=== PATIENT | female | born 1970 | race Caucasian/White ===

== ENCOUNTER 2023-11-24 06:00 | Outpatient (OUT) | payer BC, SELFPAY ==
--- NOTE | 2023-11-24 06:15 | NM_ITS ---
Patient Name: MARANDA DAVIS MR#: [id number] : 1970 Exam Date: 11/24/2023 Ordering Doctor: DR JACQUIE CHILDERS RADIOLOGY REPORT PROCEDURE: NM ANSLEY PERF SPECT REST STR COMPARISON: None. INDICATIONS: ABNORMAL EKG, PREPROCEDURE CARDIOVASCULAR EXAM TECHNIQUE: Exam Description: Stress/Rest two day protocol gated SPECT Rest Imagin.0 mCi Tc-99m Cardiolite IV on 11-24-2023 Stress Imaging 29.8 mCi Tc-99m Cardiolite IV on 11-24-2023 Exercise Protocol: 0.4 mg Lexiscan given IV Heart Rate (bpm): Rest: 57 Max: 85 PMHR: 50 Blood Pressure: Rest: 122/70 Max: 126/66 Symptoms: Rest and peak stress ECG findings were normal and the exercise portion of the study was normal per attending physician Dr. Lewis . For more details please see separate cardiac stress test report. FINDINGS: QUALITY OF STUDY: Excellent. PERFUSION DEFECT: None. LOCATION: N/A SIZE: N/A. SEVERITY: N/A. TYPE: N/A. WALL MOTION: Normal. LV SIZE: Normal. 120 mL. TID / TCD: None; 0.6 LVEF: Normal. Calculated EF 58%. SUMMARY: Myocardial perfusion imaging study is NORMAL. CONCLUSION: 1. Normal nuclear medicine myocardial perfusion scan. 2. Left ventricle volume approaches upper limits normal. 3. Left ventricle ejection fraction approaches lower limits of normal. Dictated by: Anival Desouza M.D. on 11/24/2023 at 14:41 Approved by: Anival Desouza M.D. on 11/24/2023 at 14:44
[2023-11-24] MEDS: REGADENOSON 0.4 MG/5 ML SYRINGE IV (08:04)
--- NOTE | 2023-11-24 13:01 | P.STRESS_ITS ---
Stress Test Stress Test Requesting physician: GRAZYNA WORLEY Procedure: Lexiscan Cardiolite stress test General Information: Reason for Stress Test: Abnormal EKG Cardiac History and Risk Factors: No personal risk factors disclosed. Father had weak heart . Resting 12 - Lead Electrocardiogram: Rate & rhythm: Sinus bradycardia at a rate of 54. [place]: Normal T-waves: Normal orientation ST-segments: Normal orientation Only prior EKG provided for comparison was dated 08/23/2012 which was unremarkable. Stress Test: Protocol: Jesus protocol was initiated, but due to inability to ambulate on treadmill, the exercise component was therefore canceled.? Testing was changed to Lexiscan protocol, with injection of 0.4mg Lexiscan IV push followed by Cardiolite. Blood pressure: Initial: 122/70, Maximum: 126/66 Rate & rhythm: Patient remained in sinus rhythm during the exercise and recovery portions of the study.? The maximum heart rate was 85, which was 50% of the maximum predicted heart rate 168. ST-segments & T-waves: There were no T-wave changes and no ST-segment changes when compared to the baseline EKG. Patient response/symptoms: There were no symptoms similar to the chief complaint. Interpretation: Normal Lexiscan stress test without electrocardiographical evidence of ischemia. Asymptomatic of chief complaint. Cardiolite imaging interpretation will be reported separately. Clinical correlation required.?
== END 2023-11-24 06:01 | disposition home or self-care (01) ==
LOC: NM 06:00
PROVIDERS: PCP Family Medicine; Visit Provider Physician Assistant
DX: R94.31 Abnormal electrocardiogram [ECG] [EKG] (principal); Z01.818 Encounter for other preprocedural examination
CPT/HCPCS: 78452; 93017; A9500; J2785

== ENCOUNTER 2024-08-01 06:51 | Outpatient (OUT) | payer BC, SELFPAY ==
--- OUTSIDE RECORDS SUMMARY | 2024-08-01 06:53 | XMS_ITS | CCD ---
Author Organization [facility] Care Team Providers Care Engagement Executive Name Role Phone CORKY SCALES Unavailable Unavailable KANDY GOMEZ Unavailable Unavailable ZepedaErrol zazueta Primary Care Unavailable Grazyna Worley Primary Care Provider GRAZYNA WORLEY Primary Care Unavailable KVNG KATZ Referring Unavailable Grazyna Worley Unavailable Unavailable Unavailable CAITY BARBER Consulting Unavailable CAITY BARBER Admitting Unavailable BRUNILDA, DR GERONIMO Primary Care Unavailable CAITY BARBER Attending Unavailable MARY HOLMAN Consulting Unavailable BRUNILDA, DR GERONIMO Primary Care Unavailable MISC, DR SARGENT Attending Unavailable MISC, DR SARGENT Consulting Unavailable MISC, DR SARGENT Admitting Unavailable ZIEBER, DR CHAUNCEY Sousa Consulting Unavailable MD Grazyna Worley Primary Care Provider [phone] MD River Cunha Attending Provider [phone] Sara Hoyos Unavailable KRYSTAL FLORES Primary Care Physician [phone] Grazyna Worley Primary Care Unavailable Katia Rashid Admitting Unavailable Katia Rashid Attending Unavailable Grazyna Worley Primary Care Unavailable River Cunha Admitting Unavailable River Cunha Attending Unavailable Grazyna Worley Primary Care Unavailable Sara Hoyos Admitting Unavailable Sara Hoyos Attending Unavailable KRYSTAL FLORES Primary Care Unavailable KRYSTAL FLORES Referring Unavailable SOCORRO RASHID Attending Unavailab Kavon Espitia Admitting Unavailable Kavon SANTANA Attending Unavailable Kavon SANTANA Referring Unavailable KRYSTAL FLORES Primary Care Unavailable SOCORRO RASHID Admitting UnavailSOCORRO Meraz Attending Unavailab KRYSTAL Wilhelm Primary Care Unavailable Grazyna Worley MD Primary Care Provider [phone] Grazyna Worley MD Primary Care Provider NEHAL, CARLOS Casillas Referring Unavailable BRUNILDA, RUGEN M Primary Care Unavailable NEHAL, CARLOS Casillas Attending Unavailable NEHAL, CARLOS Casillas Referring Unavailable BRUNILDA, RUGEN M Primary Care Unavailable YUMA, CARLOS Casillas Referring Unavailable BRUNILDA, RUGEN M Primary Care Unavailable NEHAL, CARLOS Casillas Referring Unavailable BRUNILDA, RUGEN M Primary Care Unavailable NEHAL, CARLOS Casillas Admitting Unavailable YUMA, CARLOS Casillas Attending Unavailable BRUNILDA, RUGEN M Primary Care Unavailable NIKHIL ABREU Attending Unavailable BRUNILDA, RUGEN M Primary Care Unavailable YUMA, CARLOS Casillas Attending Unavailable NEHAL, CARLOS Casillas Referring Unavailable BRUNILDA, RUGEN M Primary Care Unavailable Unavailable Primary Care Provider Unavailmaribeth AGUIRRE, EDU Attending Unavailable PROVIDER, UNKNOWN Admitting Unavailable BRUNILDA, RUGEN Referring Unavailable PROVIDER, UNKNOWN Admitting Unavailable PROVIDER, UNKNOWN Attending Unavailable BRUNILDA, PARVEZEN Referring Unavailable PROVIDER, UNKNOWN Admitting Unavailable PROVIDER, UNKNOWN Attending Unavailable NIKHIL GREWAL Referring Unavailable Timothy RANDOLPH, Qi Unavailable SANJANA BAHENA Attending Unavailable TANJA OJEDA Referring Unavailable NEHAL, CARLOS Casillas Attending Unavailable NEHAL, CARLOS Casillas Attending Unavailable HEMKRYSTAL KRAUS Attending Unavailable SNEIELMER GERMAN Attending Unavailable NEHAL, CARLOS Casillas Referring Unavailable SNELMER BURDEN Attending Unavailable NEHAL, CARLOS Casillas Referring Unavailable STATONJOLEEN Attending Unavailable SNEIDERELMER Attending Unavailable NEHAL, CARLOS Casillas Referring Unavailable NEHAL, CARLOS Casillas Attending Unavailable SNEIDERELMER Attending Unavailable NEHAL, CARLOS Casillas Referring Unavailable SNEIELMER GERMAN Attending Unavailable NEHAL, CARLOS Casillas Referring Unavailable STATONJOLEEN Attending Unavailable STATONJOLEEN Attending Unavailable HEMMERKRYSTAL Attending Unavailable STATONJOLEEN T Attending Unavailable STATONJOLEEN Attending Unavailable STATONJOLEEN Referring Unavailable STATONJOLEEN Attending Unavailable BRUNILDA, GRAZYNA Real Attending Unavailable STATONJOLEEN Attending Unavailable LEONELA GATES Attending Unavailable NEHAL, CARLOS Casillas Attending Unavailable SANJANA BAHENA Attending Unavailable NEHAL, CARLOS Casillas Referring Unavailable MARIELA LUONG Attending Unavailable CARLOS CALVERT Referring Unavailable MARIELA LUONG Attending Unavailable CARLOS CALVERT Referring Unavailable GRAZYNA WORLEY Attending Unavailable CARLOS CALVERT Attending Unavailable CARLOS CALVERT Referring Unavailable GRAZYNA WORLEY Attending Unavailable TANJA OJEDA Attending Unavailable TANJA OJEDA Referring Unavailable Allergies Allergy Classification Reported Allergen(s) Allergy Type Date of Onset Reaction(s) Facility (14 sources) HYDROmorphone; Translations: [Dilaudid] Drug Allergy 1 Headache, Rash [facility] (1 source) HYDROmorphone Drug Allergy [facility] Repository (2 sources) HYDROmorphone; Translations: [HYDROmorphone] Drug Allergy 1 [facility] Repository Medications Current Medications Medication Drug Class(es) Dates Sig (Normalized) Sig (Original) acetaminophen 325 mg / oxyCODONE hydrochloride 10 mg oral tablet (1 source) Opioid Agonist take 1 tablet by mouth every six hours as needed for pain oxyCODONE-acetamin ophen (PERCOCET) 10-325 MG per tablet Take 1 tablet by mouth every 6 hours as needed for Pain . 0 Active amantadine hydrochloride 100 mg oral capsule (1 source) Influenza A M2 Protein Inhibitor Start: 05-01-2023 take 1 capsule by mouth every twenty-four hours Amantadine HCl 100 MG 1 capsule Orally Once a day for 30 day(s) Apr, Active amitriptyline hydrochloride 25 mg oral tablet (15 sources) Tricyclic Antidepressant Start: 12-30-2020 take 1 tablet by mouth once daily at bedtime amitriptyline (Elavil) 25 MG tablet Indications: Adjustment disorder with depressed mood (CMS/HCC) TAKE 1 TABLET BY MOUTH EVERY DAY AT BEDTIME FOR 90 DAYS 100 tablet 3 10/12/2023 Active amoxicillin 875 mg oral tablet (1 source) Penicillin-class Antibacterial Start: 11-16-2023 End: 11-23-2023 take 1 tablet by mouth in the morning amoxicillin (Amoxil) 875 MG tablet Indications: Acute non-recurrent maxillary sinusitis Take 1 tablet (875 mg) by mouth in the morning and 1 tablet (875 mg) before bedtime. Do all this for 7 days. 14 tablet 0 11/16/2023 11/23/2023 Active Baclofen (4 sources) gamma-Aminobutyric Acid-ergic Agonist Start: 09-14-2023 baclofen Oral, TID Start Date: 09/14/23 Status: Ordered take 1 tablet by mouth four time s daily baclofen (LIORESAL) 10 MG tablet Take 10 mg by mouth 4 times daily 0 Active 12 hr buPROPion hydrochloride 100 mg extended release oral tablet (4 sources) Aminoketone Start: 07-24-2024 End: 07-24-2025 take 1 tablet by mouth every twelve hours in the morning buPROPion SR (Wellbutrin SR) 100 MG 12 hr tablet Indications: Depressive disorder (CMS/HCC) Take 1 tablet (100 mg) by mouth in the morning and 1 tablet (100 mg) before bedtime. Do not crush, chew, or split.. 60 tablet 11 07/24/2024 07/24/2025 Active cefuroxime 500 mg oral tablet (1 source) Cephalosporin Antibacterial take 1 tablet by mouth twice daily cefUROXime (CEFTIN) 500 MG tablet Take 500 mg by mouth 2 times daily 0 Active celecoxib 200 mg oral capsule (13 sources) Nonsteroidal Anti-inflammatory Drug Start: 02-13-2023 take 1 capsule by mouth in the morning celecoxib (CeleBREX) 200 MG capsule Take 200 mg by mouth in the morning. 02/13/2023 Active cephalexin 500 mg oral capsule (3 sources) Cephalosporin Antibacterial Start: 09-14-2023 take 1 capsule by mouth once daily Keflex 500 mg Cap 500 mg = 1 cap(s), Oral, Daily, take one day before procedure and take one day after procedure, # 2 cap(s), Refills(s) 0, Pharmacy: [facility]/pharmacy #[id number], 178, cm, 09/14/23 9:54:00 EST, Height/Length Dosing, 94, kg, 09/14/23 9:54:00 EST, Weight Dosing Start Date: 09/14/23 Status: Ordered clonazePAM 1 mg oral tablet (20 sources) Benzodiazepine Start: 06-21-2024 End: 07-20-2024 take 1 tablet by mouth once daily at bedtime clonazePAM (KlonoPIN) 1 MG tablet Indications: Sleep disturbance TAKE 1 TABLET BY MOUTH EVERYDAY AT BEDTIME 30 tablet 07/20/2024 Active Start: 09-08-2023 End: 11-12-2023 take 1 tablet by mouth at bedtime clonazePAM (KlonoPIN) 1 MG tablet Take 1 Tablet by mouth at bedtime. 09/08/2023 Active Start: 08-30-2020 take 1 tablet by liz th twice daily as needed clonazePAM 1 MG Oral Tablet TAKE 1 TABLET TWICE DAILY NEEDED. Quantity: 0 Refills: 0 Ordered: 03-Oct-2020 DO Start : 30-Aug-2020 Active cloNIDine (3 sources) Central alpha-2 Adrenergic Agonist Start: 09-14-2023 clonidine Start Date: 09/14/23 Status: Ordered DULoxetine 60 mg delayed release oral capsule (19 sources) Serotonin and Norepinephrine Reuptake Inhibitor Start: 06-23-2023 take 2 capsules by mouth once daily DULoxetine (Cymbalta) [address] capsule Indications: Depressive disorder (CMS/HCC) TAKE 2 CAPSULES BY MOUTH EVERY DAY 200 capsule 3 07/10/2024 Active Start: 12-23-2020 duloxetine 60 mg oral delayed release capsule 60 EA, 0 Refill(s), TAKE 2 CAPSULES BY MOUTH EVERY DAY, Refills(s) 0 Start Date: 09/08/23 Status: Ordered estradiol 2 mg oral tablet (18 sources) Estrogen Start: 09-08-2023 End: 07-24-2024 take 1 tablet by mouth once daily estradiol (Estrace) 2 MG tablet Indications: Hot flashes TAKE 1 TABLET BY MOUTH EVERY DAY 30 tablet 6 06/09/2024 07/24/2024 Discontinued (Ineffective) Start: 12-04-2020 take 1 tablet by liz th once daily Estradiol 0.5 MG Oral Tablet TAKE 1 TABLET DAILY. Quantity: 0 Refills: 0 Ordered: 02-Jan-2021 DO Start : 04-Dec-2020 Active take 1 tablet by liz th every twenty-four hours Estradiol 2 MG 1 tablet Orally Once a day Active estrogens, conjugated (intermediate) 0.625 mg oral tablet (4 sources) Estrogen Start: 07-24-2024 End: 07-24-2025 take 1 tablet by mouth once daily estrogens, conjugated, (Premarin) 0.625 MG tablet Indications: Hot flashes Take 1 tablet (0.625 mg) by mouth Daily Take daily for 21 days then do not take for 7 days. 30 tablet 11 07/24/2024 07/24/2025 Active famotidine 40 mg oral tablet (10 sources) Histamine-2 Receptor Antagonist Start: 09-21-2023 take 1 tablet by mouth in the morning famotidine (Pepcid) 40 MG tablet Indications: Gastroesophageal reflux disease without esophagitis Take 1 tablet (40 mg) by mouth in the morning. 30 tablet 5 09/21/2023 Active take 1 tablet by mouth in the mo rning famotidine (PEPCID) 20 mg tablet Take 1 tablet (20 mg total) by mouth in the morning. 0 Active ferrous sulfate 325 mg delayed release oral tablet (3 sources) Start: 11-04-2023 End: 01-03-2024 take 1 tablet by mouth at mealtime ferrous sulfate (Fe Tabs) 325 (65 Fe) MG EC tablet Indications: Arthritis of right knee Take 1 tablet (325 mg) by mouth in the morning. Take with meals. Do not crush, chew, or split.. 30 tablet 1 11/04/2023 01/03/2024 Active fexofenadine hydrochloride 60 mg oral tablet (1 source) Histamine-1 Receptor Antagonist take 1 tablet by mouth in the morning fexofenadine (Nicole) 60 MG tablet Take 60 mg by mouth in the morning. 0 Active fluticasone propionate 0.05 mg/actuat metered dose nasal spray (3 sources) Corticosteroid Start: 05-01-2023 take 1 spray(s) nasal route in the morning fluticasone (Flonase) 50 MCG/ACT nasal spray Administer 1 spray into each nostril in the morning. 0 05/01/2023 Active Start: 05-01-2023 take 2 spray(s) nasa l route once daily Fluticasone Propionate 50 MCG/ACT 2 sprays Nasally Once a day for 14 day(s) Apr, Active furosemide 40 mg oral tablet (19 sources) Loop Diuretic Start: 06-30-2023 take 1 tablet by mouth in the morning furosemide (Lasix) 40 MG tablet Indications: Edema, unspecified type Take 1 tablet (40 mg) by mouth in the morning and 1 tablet (40 mg) before bedtime. 60 tablet 05/23/2024 Active Start: 02-01-2021 take 1 tablet by liz th twice daily Furosemide 20 MG Oral Tablet TAKE 1 TABLET TWICE DAILY. Quantity: 0 Refills: 0 Ordered: 01-Feb-2021 DO Start : 01-Feb-2021 Active take 2 tablets by mo [facility] twice daily furosemide (LASIX) 20 mg tablet Take 2 tablets (40 mg total) by mouth 2 (two) times a day. 0 Active HYDROmorphone (3 sources) Opioid Agonist Start: 09-14-2023 HYDROmorphone Refills(s) 0 Start Date: 09/14/23 Status: Ordered lidocaine 0.05 mg/mg medicated patch (10 sources) Antiarrhythmic, Amide Local Anesthetic Start: 03-09-2024 apply 1 dose transdermal route once daily as needed for pain lidocaine (Lidoderm) 5 % patch APPLY 1 PATCH TO SKIN ONCE A DAY NEEDED FOR PAIN 03/09/2024 Active loratadine 10 mg oral tablet (8 sources) take 1 tablet by mouth in the morning loratadine (Claritin) 10 MG tablet Take 10 mg by mouth in the morning. Active metoprolol tartrate 25 mg oral tablet (1 source) beta-Adrenergic Shahid take 1 tablet by mouth once daily metoprolol tartrate (LOPRESSOR) 25 MG tablet Take 25 mg by mouth daily 0 Active modafinil 200 mg oral tablet (19 sources) Sympathomimetic- like Agent Start: 06-29-2024 End: 07-31-2024 take 1 tablet by mouth in the morning modafinil (Provigil) 200 MG tablet Indications: Obstructive sleep apnea TAKE 1 TABLET BY MOUTH IN THE MORNING 30 tablet 07/31/2024 Active Start: 11-19-2023 take 1 tablet by liz in the morning modafinil (Provigil) 200 MG tablet Indications: Obstructive sleep apnea Take 1 tablet (200 mg) by mouth in the morning. 30 tablet 0 11/19/2023 Active Start: 09-08-2023 End: 11-19-2023 take 1 tablet by mouth once daily in the morning modafinil (Provigil) 200 MG tablet Indications: Obstructive sleep apnea TAKE 1 TABLET BY MOUTH EVERY DAY IN THE MORNING 30 tablet 0 10/13/2023 11/19/2023 Discontinued nitrofurantoin, macrocrystals 25 mg / nitrofurantoin, monohydrate 75 mg oral capsule (1 source) Nitrofuran Antibacterial Start: 05-01-2023 take 1 capsule by mouth every twelve hours Macrobid 100 MG 1 cap(s) Orally bid for 5 day(s) Apr, Active NON FORMULARY (1 source) NON FORMULARY Pa in pump for spine- Morphine, Baclofen, Clonidine combination 0 Active omeprazole 40 mg delayed release oral capsule (13 sources) Proton Pump Inhibitor Start: 11-29-2023 take 1 capsule by mouth before mealtime omeprazole (PriLOSEC) [address] capsule Indications: Gastroesophageal reflux disease without esophagitis Take 1 capsule (40 mg) by mouth in the morning. Take before meals. Do not crush or chew. Take 30 minutes prior to breakfast meal.. 90 capsule 3 11/29/2023 Active Start: 06-21-2020 End: 11-04-2023 take 1 capsule by mouth once daily Omeprazole 40 MG Oral Capsule Delayed Release TAKE 1 CAPSULE Daily Quantity: 0 Refills: 0 Ordered: 27-Jan-2021 DO Start : 21-Jun-2020 Active OXcarbazepine 150 mg oral tablet (1 source) Anti-epileptic Agent take 1 tablet by mouth three times daily OXcarbazepine (TRILEPTAL) 150 MG tablet Take 150 mg by mouth three times daily 0 Active 24 hr oxybutynin chloride 15 mg extended release oral tablet (17 sources) Cholinergic Muscarinic Antagonist Start: 05-23-20 End: 08-31-20 take 1 tablet by mouth every twenty-four hours in the morning oxybutynin XL (Ditropan-XL) 15 MG 24 hr tablet Indications: Urge incontinence of urine Take 1 tablet (15 mg) by mouth in the morning. 100 tablet 05/23/2024 07/24/2024 Discontinued (Ineffective) Start: 09-14-2023 End: 09-28-2023 take 1 tablet by mouth once daily oxybutynin 5 mg ER Tab 5 mg = 1 tab(s), Oral, Daily, X 14 day(s), # 14 tab(s), Refills(s) 0, Pharmacy: [facility]/pharmacy #[id number], 178, cm, 09/14/23 9:54:00 EST, Height/Length Dosing, 94, kg, 09/14/23 9:54:00 EST, Weight Dosing Start Date: 09/14/23 Stop Date: 09/28/23 Status: Ordered Start: 09-08-2023 oxybutynin 10 mg ER Tab 30 EA, 0 Refill(s), TAKE 1 TABLET BY MOUTH EVERY DAY IN THE MORNING, Refills(s) 0 Start Date: 09/08/23 Status: Ordered Start: 05-17-2023 take 1 tablet by liz th every twenty-four hours in the morning oxybutynin XL (Ditropan-XL) 10 MG 24 hr tablet Indications: Urge incontinence of urine Take 1 tablet (10 mg) by mouth in the morning. 100 tablet 3 05/17/2023 Active take 1 tablet by liz th once daily in the morning oxybutynin (DITROPAN XL) 15 MG XL tablet Take 15 mg by mouth every morning. Active Oxybutynin Chlor valentina ER 10 MG Oral for 30 Days Active phenazopyridine hydrochloride 200 mg oral tablet (1 source) Start: 05-01-2023 take 1 tablet by mouth every eight hours Pyridium 200 MG 1 tablet after meals Orally Three times a day for 2 day(s) Apr, Active potassium gluconate 2.5 meq extended release oral tablet (11 sources) Potassium Glucon ate ER 595 MG tablet controlled-release Take by mouth Daily Active pregabalin 200 mg oral capsule (18 sources) Start: 10-24-2020 take 1 capsule by mouth in the morning, then take 1 capsule by mouth in the evening, then take 1 capsule by mouth at bedtime pregabalin (Lyrica) 200 MG capsule Indications: Chronic pain syndrome , Numbness and tingling of both legs Take 1 capsule (200 mg) by mouth in the morning and 1 capsule (200 mg) in the evening and 1 capsule (200 mg) before bedtime. 90 capsule 5 04/07/2024 Active take 1 capsule by mouth three ti mes daily pregabalin (LYRICA) 200 mg capsule Take 1 capsule (200 mg total) by mouth 3 (three) times a day. 0 Active take 2 capsules by m outh three times daily pregabalin (LYRICA) 100 MG capsule Take 200 mg by mouth 3 times daily 0 Active spironolactone 25 mg oral tablet (8 sources) Aldosterone Antagonist Start: 06-07-2023 take 1 tablet by mouth once daily spironolactone (Aldactone) 25 MG tablet Indications: Localized edema TAKE 1 TABLET BY MOUTH EVERY DAY FOR 30 DAYS 30 tablet 5 06/07/2023 Active tiZANidine 4 mg oral tablet (14 sources) Central alpha-2 Adrenergic Agonist Start: 05-23-2024 take 1 tablet by mouth every eight hours for muscle spasms tiZANidine (Zanaflex) 4 MG tablet Indications: Tension headache Take 1 tablet (4 mg) by mouth every 8 (eight) hours if needed for muscle spasms 90 tablet 05/23/2024 Active Start: 11-04-2023 take 1 tablet by liz th three times daily as needed for muscle spasms tiZANidine (Zanaflex) 4 MG tablet TAKE 1 TABLET BY MOUTH THREE TIMES A DAY NEEDED FOR MUSCLE SPASM 0 11/04/2023 Active Start: 09-25-2021 tiZANidine HCl - 4 MG Oral Tablet USE DIRECTED. Quantity: 0 Refills: 0 Ordered: 25-Sep-2021 DO Start : 25-Sep-2021 Active take 1 tablet by liz th every six hours as needed tiZANidine (ZANAFLEX) 4 mg tablet Take 1 tablet (4 mg total) by mouth every 6 (six) hours as needed for muscle spasms. 0 Active 24 hr tolterodine tartrate 4 mg extended release oral capsule (1 source) Cholinergic Muscarinic Antagonist take 2 capsules by mouth once daily tolterodine (DETROL LA) 4 MG extended release capsule Take 8 mg by mouth daily 0 Active traMADol hydrochloride 50 mg oral tablet (18 sources) Opioid Agonist Start: 09-08-20 End: 07-31-20 24 take 1 tablet by mouth every six hours for pain traMADol (Ultram) 50 MG tablet Indications: Fibromyalgia Take 1 tablet (50 mg) by mouth every 6 (six) hours if needed for severe pain 120 tablet 07/31/2024 Active take 1 tablet by liz th four times daily as needed traMADol HCl 50 MG TAKE 1 TABLET BY MOUT H FOUR TIMES A DAY NEEDED Oral for 30 Days Active traZODone hydrochloride 50 mg oral tablet (20 sources) Serotonin Reuptake Inhibitor Start: 10-17-2020 take 1 tablet by mouth once daily at bedtime traZODone (Desyrel) 50 MG tablet Indications: Primary insomnia TAKE 1 TABLET BY MOUTH EVERYDAY AT BEDTIME 30 tablet 13 12/01/2023 Active venlafaxine 75 mg oral tablet (1 source) Serotonin and Norepinephrine Reuptake Inhibitor take 2 tablets by mouth once daily venlafaxine (EFFEXOR) 75 MG tablet Take 150 mg by mouth daily 0 Active Completed/Discontinued Medications Medication Drug Class(es) Dates Sig (Normalized) Sig (Original) cholecalciferol 0.01 mg oral tablet (1 source) Vitamin D End: 11-04-2023 cholecalciferol, vitamin D3, 400 units tablet Take 75 Units by mouth daily. 0 11/04/2023 Discontinued (Therapy completed) gadoteridol (PROHANCE) injection 20 mL (1 source) Start: 01-24-2021 End: 01-24-2021 gadoteridol (PROHANCE) injection 20 mL phentermine hydrochloride 37.5 mg oral capsule (1 source) Sympathomimetic Amine Anorectic take 1 capsule by mouth once daily before breakfast Adipex-P 37.5 MG Oral Capsule TAKE 1 CAPSULE EVERY MORNING BEFORE BREAKFAST. Quantity: 0 Refills: 0 Ordered: 25-Sep-2021 DO Active sodium chloride 0.9 % parenteral solution with HYDROmorphone (PF) 10 mg/mL solution 2 mg/mL (1 source) End: 11-04-2023 sodium chloride 0.9 % parenteral solution with HYDROmorphone (PF) 10 mg/mL solution 2 mg/mL by epidural route continuously. Hydromorphone (5.0mg/ml), baclofen (500.0mcg/ml), clonodine (100.0mcg/ml). Medtronic pain pump, continuous. Hard copy info scanned into [employer]. 0 11/04/2023 Discontinued (Therapy completed) Problems Active Problems Problem Classification Problem Date Documented Da te Episodic/Chronic Adjustment disorders (12 sources) Adjustment disorder with depressed mood; Translations: [Adjustment disorder with depressed mood] Onset: 3 09-14-2023 Chronic Anxiety disorders (13 sources) Generalized anxiety disorder; Translations: [Generalized anxiety disorder] Onset: 8 09-14-2023 Chronic Diabetes mellitus without complication (8 sources) Type 2 diabetes mellitus without complication; Translations: [Type 2 diabetes mellitus without complications] Onset: 4 10-25-2023 Chronic Disorders of lipid metabolism (14 sources) Hyperlipidemia; Translations: [Hyperlipidemia, unspecified] Onset: 3 09-14-2023 Chronic Esophageal disorders (20 sources) Gastro-esophageal reflux disease with esophagitis; Translations: [Gastroesophageal reflux disease] Onset: 3 09-14-2023 Chronic Genitourinary symptoms and ill-defined conditions (20 sources) Stress incontinence (female) (male); Translations: [Female stress incontinence] Onset: 3 Chronic Headache; including migraine (20 sources) Migraine, unspecified, not intractable, without status migrainosus; Translations: [Migraine] Onset: 3 Chronic Immunizations and screening for infectious disease (11 sources) Anti-nuclear factor positive; Translations: [Other specified abnormal immunological findings in serum] Onset: 4 06-26-2024 Episodic Joint disorders and dislocations; trauma-related (20 sources) Bilateral derangement of knee; Translations: [Derangement of left knee] Onset: 3 09-14-2023 Chronic Menopausal disorders (20 sources) Atrophy of vagina; Translations: [Menopausal flushing] Onset: 3 09-14-2023 Chronic Miscellaneous mental health disorders (12 sources) Primary insomnia; Translations: [Primary insomnia] Onset: 5 09-14-2023 Chronic Mood disorders (11 sources) Depressive disorder; Translations: [Depressive disorder] Onset: 0 03-09-2023 Chronic Nutritional deficiencies (1 source) Vitamin D deficiency; Translations: [Unspecified vitamin D deficiency] Chronic Osteoarthritis (20 sources) Unspecified osteoarthritis, unspecified site; Translations: [Idiopathic osteoarthritis] Onset: 1 09-14-2023 Chronic Other acquired deformities (12 sources) Postural kyphosis; Translations: [Postural kyphosis, thoracic region] Onset: 6 09-14-2023 Chronic Other acquired deformities (12 sources) Scoliosis deformity of spine; Translations: [Scoliosis, unspecified] Onset: 3 09-14-2023 Chronic Other aftercare (1 source) Other meterman (current) drug therapy; Translations: [[employer] MANAGER 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 DRUG THERAPY] Onset: 3 Episodic Other connective tissue disease (12 sources) History of total hip arthroplasty; Translations: [Presence of unspecified artificial hip joint] Onset: 3 09-14-2023 Chronic Other connective tissue disease (14 sources) Fibromyalgia; Translations: [Myalgia and myositis, unspecified] Onset: 3 09-08-2023 Episodic Other connective tissue disease (2 sources) H/O: musculoskeletal disease; Translations: [Personal history of other musculoskeletal disorders] Episodic Other connective tissue disease (1 source) Fibromyalgia; Translations: [FIBROMYALGIA] Onset: 3 Episodic Other gastrointestinal disorders (1 source) History of gastroesophageal reflux disease; Translations: [Personal history of other diseases of digestive system] Episodic Other lower respiratory disease (1 source) H/O: respiratory disease; Translations: [Personal history of other diseases of respiratory system] Episodic Other nervous system disorders (3 sources) Carpal tunnel syndrome 09-14-2023 Chronic Other nervous system disorders (12 sources) Chronic pain syndrome; Translations: [Chronic pain syndrome] Onset: 3 09-14-2023 Chronic Other nervous system disorders (12 sources) Peripheral nerve disease ; Translations: [Polyneuropathy, unspecified] Onset: 3 09-14-2023 Chronic Other nervous system disorders (9 sources) Bilateral carpal tunnel syndrome; Translations: [Carpal tunnel syndrome, bilateral upper limbs] Onset: 3 03-09-2023 Chronic Other nervous system disorders (9 sources) Difficulty walking; Translations: [Difficulty in walking, not elsewhere classified] Onset: 3 03-09-2023 Chronic Other non-traumatic joint disorders (6 sources) Arthritis of knee 09-14-2023 Chronic Other non-traumatic joint disorders (3 sources) Multiple joint pain; Translations: [Pain in unspecified joint] 06-26-2024 Episodic Other non-traumatic joint disorders (1 source) Pain in unspecified joint; Translations: [Pain in unspecified joint] Onset: 4 Episodic Other non-traumatic joint disorders (6 sources) Swollen ankle region; Translations: [Effusion, left ankle] Onset: 4 05-23-2024 Episodic Other nutritional; endocrine; and metabolic disorders (1 source) Obesity; Translations: [Obesity, unspecified] Chronic Other nutritional; endocrine; and metabolic disorders (3 sources) Disorder of carbohydrate metabolism 09-14-2023 Chronic Other upper respiratory disease (12 sources) Allergic rhinitis; Translations: [Allergic rhinitis, unspecified] Onset: 3 09-14-2023 Chronic Residual codes; unclassified (12 sources) Hypersomnia; Translations: [Hypersomnia, unspecified] Onset: 3 09-14-2023 Chronic Residual codes; unclassified (14 sources) Obstructive sleep apnea syndrome; Translations: [Obstructive sleep apnea (adult) (pediatric)] Onset: 3 09-14-2023 Chronic Residual codes; unclassified (9 sources) Postprocedural state finding; Translations: [Presence of other specified functional implants] Onset: 6 05-26-2023 Chronic Residual codes; unclassified (7 sources) Not easily wakened from sleep; Translations: [Other sleep disorders] Onset: 4 11-16-2023 Chronic Residual codes; unclassified (1 source) Presence of other specified devices; Translations: [PRESENCE OF OTHER SPECIFIED DEVICES] Onset: Episodic Residual codes; unclassified (6 sources) Edema; Translations: [Edema, unspecified] Onset: 4 05-23-2024 Episodic Residual codes; unclassified (6 sources) Flushing; Translations: [Flushing] Onset: 4 07-24-2024 Episodic Spondylosis; intervertebral disc disorders; other back problems (20 sources) Lumbar post-laminectomy syndrome; Translations: [Postlaminectomy syndrome, not elsewhere classified] Onset: Chronic Systemic lupus erythematosus and connective tissue disorders (12 sources) Systemic lupus erythematosus; Translations: [Systemic lupus erythematosus, unspecified] Onset: 3 09-14-2023 Chronic Thyroid disorders (12 sources) Thyroid nodule; Translations: [Nontoxic single thyroid nodule] Onset: 3 09-14-2023 Chronic Unclassified (3 sources) Asymptomatic microscopic hematuria 09-14-2023 Unclassified (3 sources) Not easily wakened from sleep 09-14-2023 Unclassified (3 sources) Postprocedural state finding 09-14-2023 Unclassified (1 source) Asymptomatic microscopic hematuria; Translations: [Asymptomatic microscopic hematuria] Onset: 3 Unclassified (1 source) Myalgia, unspecified site; Translations: [Myalgia, unspecified site] Onset: 3 Unclassified (1 source) right knee degenerative joint disease Onset: 4 Past or Other Problems Problem Classification Problem Date Documented Da te Episodic/Chronic Bacterial infection; unspecified site (20 sources) Mycoplasma infection; Translations: [Mycoplasma infection, unspecified site] Onset: 3 Resolved: 3 09-14-2023 Episodic Deficiency and other anemia (12 sources) Anemia; Translations: [Anemia, unspecified] Onset: 3 09-14-2023 Episodic Diabetes mellitus without complication (11 sources) Impaired glucose tolerance; Translations: [Impaired glucose tolerance (oral)] Onset: 3 03-09-2023 Episodic Diabetes or abnormal glucose tolerance complicating ; childbirth; or the puerperium (13 sources) History of gestational diabetes mellitus; Translations: [Personal history of gestational diabetes] Onset: 6 09-14-2023 Episodic Diseases of mouth; excluding dental (12 sources) Mucocele of mouth; Translations: [Other lesions of oral mucosa] Onset: 3 09-14-2023 Episodic Genitourinary symptoms and ill-defined conditions (20 sources) Dysuria; Translations: [Hematuria, unspecified] Onset: 3 Episodic Headache; including migraine (2 sources) Headache; including migraine; Translations: [HEADACHE UNSPECIFIED] Onset: 3 Other acquired deformities (12 sources) Lumbar spondylolisthesis; Translations: [Spondylolisthesis, lumbar region] Onset: 6 09-14-2023 Episodic Other connective tissue disease (12 sources) Weakness of hand; Translations: [Other symptoms and signs involving the musculoskeletal system] Onset: 3 09-14-2023 Episodic Other connective tissue disease (9 sources) History of lumbar fusion; Translations: [Arthrodesis status] Onset: 6 05-26-2023 Episodic Other connective tissue disease (9 sources) Muscle weakness; Translations: [Muscle weakness (generalized)] Onset: 6 05-26-2023 Episodic Other gastrointestinal disorders (12 sources) Constipation; Translations: [Constipation, unspecified] Onset: 3 09-14-2023 Episodic Other gastrointestinal disorders (9 sources) Slow transit constipation; Translations: [Slow transit constipation] Onset: 3 03-09-2023 Episodic Other infections; including parasitic (12 sources) Lyme disease; Translations: [Lyme disease, unspecified] Onset: 3 09-14-2023 Episodic Other nervous system disorders (12 sources) Incoordination; Translations: [Unspecified lack of coordination] Onset: 3 09-14-2023 Episodic Other nervous system disorders (12 sources) Paresthesia of lower extremity; Translations: [Anesthesia of skin] Onset: 3 09-14-2023 Episodic Other nervous system disorders (12 sources) Tremor; Translations: [Tremor, unspecified] Onset: 3 09-14-2023 Episodic Other nervous system disorders (9 sources) Impaired cognition; Translations: [Other symptoms and signs involving cognitive functions and awareness] Onset: 3 03-09-2023 Episodic Other nervous system disorders (9 sources) Skin sensation disturbance; Translations: [Unspecified disturbances of skin sensation] Onset: 6 05-26-2023 Episodic Other non-traumatic joint disorders (6 sources) Pain in right knee; Translations: [Pain in joint, lower leg] Onset: 4 12-20-2023 Episodic Other nutritional; endocrine; and metabolic disorders (12 sources) Obese class I; Translations: [Obesity, unspecified] Onset: 3 Resolved: 4 09-14-2023 Chronic Other nutritional; endocrine; and metabolic disorders (9 sources) Body mass index 30+ - obesity; Translations: [Body mass index (BMI) 31.0-31.9, adult] Onset: 3 Resolved: 4 05-26-2023 Chronic Other nutritional; endocrine; and metabolic disorders (7 sources) Body mass index 25-29 - overweight; Translations: [Overweight] Onset: 4 11-16-2023 Episodic Other screening for suspected conditions (not mental disorders or infectious disease) (12 sources) Electrocardiogram abnormal; Translations: [Nonspecific abnormal electrocardiogram [ECG] [EKG]] Onset: 3 03-09-2023 Episodic Other skin disorders (12 sources) Excessive sweating; Translations: [Generalized hyperhidrosis] Onset: 3 09-14-2023 Episodic Other skin disorders (9 sources) Eruption; Translations: [Rash and other nonspecific skin eruption] Onset: 3 03-09-2023 Episodic Other upper respiratory infections (20 sources) Acute sinusitis; Translations: [Acute sinusitis] Onset: 3 Resolved: 3 Episodic Residual codes; unclassified (12 sources) Amnesia; Translations: [Other amnesia] Onset: 3 09-14-2023 Episodic Residual codes; unclassified (14 sources) Disturbance in sleep behavior; Translations: [Sleep disorder, unspecified] Onset: 3 09-14-2023 Episodic Residual codes; unclassified (9 sources) History of lumbar laminectomy; Translations: [Other specified postprocedural states] Onset: 6 05-26-2023 Episodic Residual codes; unclassified (9 sources) Bilateral lower limb edema; Translations: [Localized edema] Onset: 3 09-07-2023 Episodic Screening and history of mental health and substance abuse codes (16 sources) Ex-smoker; Translations: [Personal history of tobacco use] Onset: 0 Episodic Comment on above: Quit in 2014.; Spondylosis; intervertebral disc disorders; other back problems (16 sources) Pain in thoracic spine; Translations: [Spinal stenosis of lumbar region] Onset: 2 Episodic Urinary tract infections (8 sources) Urinary tract infectious disease; Translations: [UTI (urinary tract infection)] Onset: 4 Episodic Results Test Name Value Interpretation Reference Range Facility Laboratory - Hematology and Cell countson 07-24-2024 HbA1c (Bld) [Mass fraction] 5.6 % [facility] No Panel Informationon 07-24 Interpretation and review of laboratory results Normal [facility] AUTOIMMUNE MULTIPLEX PANELon 06-26-2024 [facility] protein B Ab Ql (S) Negative Negative [facility] Centromere protein B Ab Qn (S) NINF [facility] Ql [facility] double strand Ab Qn (S) Negative Negative [place] DNA double strand Ab Qn (S) 1 [IU]/mL See Below [place] Interpretation and review of laboratory results Abnormal [place] Skylar-1 extractable nuclear Ab IA Qn (Body fld) Negative Negative [place] Skylar-1 extractable nuclear Ab IA Qn (S) [facility] [place] Nuclear Ab IA Ql (S) Positive Abnormal Negative [place] Ribonucleoprotein extractable nuclear 63kD Ab Ql Negative Negative [place] Ribonucleoprotein extractable nuclear Ab IA Qn (S) [facility] [place] Ribosomal P Ab IA Qn (S) [facility] Ribosomal P Ab Ql (S) Negative Negative [place] SCL-70 extractable nuclear Ab IA Ql (S) Positive Abnormal Negative [place] SCL-70 extractable nuclear Ab IA Qn (S) 1.3 [facility] Sjogrens syndrome-A extractable nuclear Ab IA Ql (S) Negative Negative [place] Sjogrens syndrome-A extractable nuclear Ab IA Qn (S) [facility] [place] Sjogrens syndrome-B extractable nuclear Ab IA Ql (S) Negative Negative [place] Sjogrens syndrome-B extractable nuclear Ab IA Qn (S) [facility] Pulido extractable nuclear Ab IA Qn (S) [facility] Pulido extractable nuclear Ab Ql (S) Negative Negative [place] Pulido extractable nuclear Ab+Ribonucleoprotei n extractable nuclear Ab IA Ql (S) Negative Negative [place] Pulido extractable nuclear Ab+Ribonucleoprotei n extractable nuclear IgG IA Qn (S) [facility] [place] ds DNA Reference Range: < or = to 4 IU/mL-Negative 5-9 IU/mL-Indeterminate > or = to 10 IU/mL-Positive [facility] SASCHA SCREEN Positive Abnormal Negative The [facility] Comment on above: Order Comment: ds DNA Reference Range: < or = to 4 IU/mL-Negative 5-9 IU/mL-Indeterminate > or = to 10 IU/mL-Positive Performed By: #### C CP, sascha #### [facility] [address] [place], [address] CENTROMERE ANTIBODY Negative Normal Negative [facility] Comment on above: Order Comment: ds DNA Reference Range: < or = to 4 IU/mL-Negative 5-9 IU/mL-Indeterminate > or = to 10 IU/mL-Positive Performed By: #### C CP, sascha #### [facility] [address] [place] [address], CENTROMERE ANTIBODY INDEX < 0.2 Normal <1.0 The [facility] Comment on above: Order Comment: ds DNA Reference Range: < or = to 4 IU/mL-Negative 5-9 IU/mL-Indeterminate > or = to 10 IU/mL-Positive Performed By: #### C CP, sascha #### [facility] [address] [place] [address], CHROMATIN ANTIBODY Negative Normal Negative The [facility] Comment on above: Order Comment: ds DNA Reference Range: < or = to 4 IU/mL-Negative 5-9 IU/mL-Indeterminate > or = to 10 IU/mL-Positive Performed By: #### C CP, sascha #### [facility] [address] [place] [address], CHROMATIN ANTIBODY INDEX < 0.2 Normal <1.0 The [facility] Comment on above: Order Comment: ds DNA Reference Range: < or = to 4 IU/mL-Negative 5-9 IU/mL-Indeterminate > or = to 10 IU/mL-Positive Performed By: #### C CP, sascha #### [facility] [address] [place] [address], DS DNA Negative Normal Negative The [facility] Comment on above: Order Comment: ds DNA Reference Range: < or = to 4 IU/mL-Negative 5-9 IU/mL-Indeterminate > or = to 10 IU/mL-Positive Performed By: #### C CP, sascha #### [facility] [address] [place] [address], DS DNA ANTIBODY 1 Normal See Below The [facility] Comment on above: Order Comment: ds DNA Reference Range: < or = to 4 IU/mL-Negative 5-9 IU/mL-Indeterminate > or = to 10 IU/mL-Positive Performed By: #### C CP, sascha #### [facility] [address] [place] [address], JO1 ANTIBODY Negative Normal Negative The [facility] Comment on above: Order Comment: ds DNA Reference Range: < or = to 4 IU/mL-Negative 5-9 IU/mL-Indeterminate > or = to 10 IU/mL-Positive Performed By: #### C CP, sascha #### [facility] [address] [place] [address], JO1 ANTIBODY INDEX < 0.2 Normal <1.0 The [facility] Comment on above: Order Comment: ds DNA Reference Range: < or = to 4 IU/mL-Negative 5-9 IU/mL-Indeterminate > or = to 10 IU/mL-Positive Performed By: #### C CP, sascha #### [facility] [address] [place] [address], RIBOSOMAL P ANTIBODY Negative Normal Negative The [facility] Comment on above: Order Comment: ds DNA Reference Range: < or = to 4 IU/mL-Negative 5-9 IU/mL-Indeterminate > or = to 10 IU/mL-Positive Performed By: #### C CP, sascha #### [facility] [address] [place] [address], RIBOSOMAL P ANTIBODY INDEX < 0.2 Normal <1.0 The [facility] Comment on above: Order Comment: ds DNA Reference Range: < or = to 4 IU/mL-Negative 5-9 IU/mL-Indeterminate > or = to 10 IU/mL-Positive Performed By: #### C CP, sascha #### [facility] [address] [place] [address], MANAGER ENGINE ANTIBODY Negative Normal Negative The [facility] Comment on above: Order Comment: ds DNA Reference Range: < or = to 4 IU/mL-Negative 5-9 IU/mL-Indeterminate > or = to 10 IU/mL-Positive Performed By: #### C CP, sascha #### [facility] [address] [place] [address], MANAGER ENGINE ANTIBODY INDEX < 0.2 Normal <1.0 The [facility] Comment on above: Order Comment: ds DNA Reference Range: < or = to 4 IU/mL-Negative 5-9 IU/mL-Indeterminate > or = to 10 IU/mL-Positive Performed By: #### C CP, sascha #### [facility] [address] [place] [address], SCLERODERMA-70 ANTIBODY Positive Abnormal Negative The [facility] Comment on above: Order Comment: ds DNA Reference Range: < or = to 4 IU/mL-Negative 5-9 IU/mL-Indeterminate > or = to 10 IU/mL-Positive Performed By: #### C CP, sascha #### [facility] [address] [place] [address], SCLERODERMA-70 ANTIBODY INDEX 1.3 Al High <1.0 The [facility] Comment on above: Order Comment: ds DNA Reference Range: < or = to 4 IU/mL-Negative 5-9 IU/mL-Indeterminate > or = to 10 IU/mL-Positive Performed By: #### C CP, sascha #### [facility] [address] [place] [address], PULIDO ANTIBODY Negative Normal Negative The [facility] Comment on above: Order Comment: ds DNA Reference Range: < or = to 4 IU/mL-Negative 5-9 IU/mL-Indeterminate > or = to 10 IU/mL-Positive Performed By: #### C CP, sascha #### [facility] [address] [place] [address], PULIDO ANTIBODY INDEX < 0.2 Normal <1.0 The [facility] Comment on above: Order Comment: ds DNA Reference Range: < or = to 4 IU/mL-Negative 5-9 IU/mL-Indeterminate > or = to 10 IU/mL-Positive Performed By: #### C CP, sascha #### [facility] [address] [place] [address], PULIDO/MANAGER ENGINE ANTIBODY Negative Normal Negative The [facility] Comment on above: Order Comment: ds DNA Reference Range: < or = to 4 IU/mL-Negative 5-9 IU/mL-Indeterminate > or = to 10 IU/mL-Positive Performed By: #### C CP, sascha #### [facility] [address] [place] [address], PULIDO/MANAGER ENGINE ANTIBODY INDEX < 0.2 Normal <1.0 The [facility] Comment on above: Order Comment: ds DNA Reference Range: < or = to 4 IU/mL-Negative 5-9 IU/mL-Indeterminate > or = to 10 IU/mL-Positive Performed By: #### C CP, sascha #### [facility] [address] [place] [address], SS-A ANTIBODY Negative Normal Negative The [facility] Comment on above: Order Comment: ds DNA Reference Range: < or = to 4 IU/mL-Negative 5-9 IU/mL-Indeterminate > or = to 10 IU/mL-Positive Performed By: #### C CP, sascha #### [facility] [address] [place], [place], SS-A ANTIBODY INDEX < 0.2 Normal <1.0 [facility] Comment on above: Order Comment: ds DNA Reference Range: < or = to 4 IU/mL-Negative 5-9 IU/mL-Indeterminate > or = to 10 IU/mL-Positive Performed By: #### C CP, sascha #### [facility] [address] [place] [address], SS-B ANTIBODY Negative Normal Negative The [facility] Comment on above: Order Comment: ds DNA Reference Range: < or = to 4 IU/mL-Negative 5-9 IU/mL-Indeterminate > or = to 10 IU/mL-Positive Performed By: #### C CP, sascha #### [facility] [address] [place] [address], SS-B ANTIBODY INDEX < 0.2 Normal <1.0 [facility] Comment on above: Order Comment: ds DNA Reference Range: < or = to 4 IU/mL-Negative 5-9 IU/mL-Indeterminate > or = to 10 IU/mL-Positive Performed By: #### C CP, sascha #### [facility] [address] [place] [address], C-REACTIVE PROTEINon 024 CRP 0.8 mg/dL High <0.5 The [facility] Comment on above: Performed By: #### C RP, RA #### [facility] [address] [place] [address], CYCLIC CITRULLINATED PEPTIDE ,*on 06-26-2024 Cyclic citrullinated peptide IgG Qn U/mL [facility] - 3.0 U/mL [place] Interpretation and review of laboratory results Normal [place] Reference Range: Negative: < 3.0 U/mL Positive: > or = 3.0 U/mL [facility] CYCLIC CITRULL. PEPTIDE AB, IGG < 0.5 Normal <3.0 The [place] [facility] Comment on above: Order Comment: Refer ence Range: Negative: < 3.0 U/mL Positive: > or = 3.0 U/mL Performed By: #### C CP, sascha #### [facility] [address] [place] [address], ERYTHROCYTE SEDIMENTATION RA Karina 06-26-2024 ESR (Bld) [Velocity] 18 mm/h Normal <=30 The [place] [facility] Comment on above: Performed By: #### E SR #### [facility] [address] [place] [address], Laboratory - Chemistry and C hemistry - challengeon 06-26-2024 CRP [Mass/Vol] 0.8 mg/dL High [facility] - 0.5 mg/dL [place] [facility] - Hematology and Cell countson 06-26-2024 ESR (Bld) [Velocity] 18 mm/h [facility] Laboratory - Serology - non- microon 06-26-2024 Rheumatoid factor Qn [facility] No Panel Informationon 06-26 Interpretation and review of laboratory results Normal [facility] Interpretation and review of laboratory results Abnormal [facility] Interpretation and review of laboratory results Normal [facility] Patient Instructionson 06-26 [employer] Authentication Interface Message Text Blood work and Xray today Overall we have low suspicion of autoimmune conditions but given you are having morning stiffness and pain, we will get blood work checked Normal [facility] [place] [facility] Progress Noteson 06-26-2024 [employer] Authentication Interface Message Text Maranda Davis 06/26/2024 Diagnoses: 1. Fibromyalgia. 2. Polyarthralgia. Today I saw and evaluated the patient. I personally obtained the larson and critical portions of the history and physical examination. I reviewed the resident's documentation and discussed the patient with the resident. I agree with the resident's medical decision making as documented in the resident's note. Additional findings, impression and plan are as follows: S: This 54-year-old woman was referred because of a positive SASCHA test of 1:80 and diffuse polyarthralgias. She is status post right knee replacement and left hip replacement and has had at least several surgical procedures on her lumbar spine. She currently uses a pain pump for her chronic spinal pain. She complains of swelling of her hands with minimal pain but has stiffness in the morning lasting for at least 1 hour. She also describes pain and swelling in her ankles. She has been taking tramadol intermittently for such symptoms. Other recent symptoms include a an intermittent face rash and photosensitivity. She complains of dry eyes and dry mouth and discoloration of her fingers that could be consistent with Raynaud's phenomenon. She has been diagnosed in the past with fibromyalgia and chronic Lyme disease and indicates that she did have a tick bite many years ago. Family history discloses that her grandmother has rheumatoid arthritis. O: Her blood pressure is 100/62 and her weight is 218 lb. She is ambulating without difficulty. The skin shows no rash today. The hands show minimal tenderness of PIP joints without swelling. MCP joints are asymptomatic and her creel hand strength is normal. Wrists and elbows are asymptomatic. Ankles and feet are currently asymptomatic. A: Her current symptoms and examination seem most consistent with fibromyalgia. In view of her borderline positive SASCHA test and morning stiffness, we will obtain additional appropriate laboratory studies. P: 1. She will obtain autoimmune panel, ESR, CRP, rheumatoid factor, anti CCP today. 2. We discussed fibromyalgia in detail, including the importance of regular exercises. 3. She may use Tylenol as needed for pain in addition to her current medication. 4. She may return for follow-up p.r.n. Nikhil Grewal MD Normal [facility] [employer] Authentication Interface Message Text Rheumatology New Visit Note Referring Physician: Referring Provider: Grazyna Worley MD Reason for referral: New patient, establish relationship History of present illness: Maranda Davis is a 54 year old female who presents to [facility] rheumatology clinic for evaluation of positive SASCHA 1:80 nuclear pattern and joint pain PCP Dr. Worley, got her care from [facility], 1 hour from here. Referred here because no rheumatology service available there. Joint pain ongoing for 7 years, knees are the worst, also have hips, and whole back pain. Had total knee replacement in 11/2023 which helped, also had left hip replaced in 2019, had a few back surgeries, last one was in 2014. Hand and elbows are doing okay, fingers occasionally hurt with activities such as opening the jars. Worse in the morning and loosed up a little bit when moves around. Has morning stiffness of knees and ankle for 1-1.5 hours daily, worse in the past 2-3 years. Has bilateral ankle and hand swelling for a few years, worse in the evening, not hurting but feels tight when the swelling is worse, put on furosemide by PCP, helping a little bit. Had SASCHA in 2022 with 1:80 titer, nuclear pattern,had negative RF, CCP, SSA, SSB in 12/2022 Has pain pump (hydromorphone, baclofen) for the back, takes tramadol in the morning, prescribed tizanidine but not taking. No rash now but does get photosensitivity with erythematous rashes on her face as well as arms, no sores in mouth or nose, no fever, no unintentional weight loss, no significant hair loss, some dry eyes and mouth, using eye drops, no chest pain or shortness, no abdominal pain or diarrhea, has constipation, no change in urine. Fingers turn white in cold and returned normal after warming up, not turning purple. Diagnosed of fibromyalgia by PCP in 2009 and diagnosed of Chronic Lyme disease in 2020, not on treatment. 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 Lives with and son. Has 3 children. Paternal grandmother might have RA, son has early onset lupus Pertinent labs and imagines: As above Review of Systems: General [] Fever []night sweats [] Unintentional weight []Gain or []loss Eyes [] dryness [] iritis ENMT [] oral dryness [] Oral or []Nasal ulcers Respiratory [] coughing [] History of pleural effusion Cardiovascular: [] chest pain [] history of []pericardial effusion or []pericarditis Gastrointestinal: [] Dysphagia [] GERD [] Diarrhea Genitourinary [] Urethritis [] Genital ulcers Neurologic [] Paresthesia [] History of seizure Skin [] rashes [] psoriasis [] malar rash [] Reynaud phenomenon [] patchy hair loss Musculoskeletal [] joint pain [] joint swelling [] muscle pain [] muscle weakness Hematologic [] Easy bruising/bleeding [] Leukopenia [] Anemia [] Thrombocytopenia [] History of []DVT or []PE [] History of miscarriage ([] First trimester [] Second trimester) Past Medical History: No past medical history on file. Past Surgical History: No past surgical history on file. Social History: Tobacco: No EtOH: No Occupation: Used to worked in [employer] at [employer], retired now Social History Socioeconomic History Marital status: Highest education level: Some college, no degree Tobacco Use Smoking status: Never Smokeless tobacco: Never Social Determinants of Health Financial Resource Strain: Low Risk (06/24/2024) Overall Financial Resource Strain (CARDIA) Difficulty of Paying Living Expenses: Not hard at all Food Insecurity: No Food Insecurity (06/24/2024) Hunger Vital Sign Worried About Running Out of Food in the Last Year: Never true Ran Out of Food in the Last Year: Never true Transportation Needs: No Transportation Needs (06/24/2024) PRAPARE - Transportation Lack of Transportation (Medical): No Lack of Transportation (Non-Medical): No Physical Activity: Insufficiently Active (06/24/2024) Exercise Vital Sign Days of Exercise per Week: 3 days Minutes of Exercise per Session: 40 min Stress: No Stress Concern Present (06/24/2024) [place] [employer] - Occupational Stress Questionnaire Feeling of Stress : Not at all Social Connections: Socially Integrated (06/24/2024) Social Connection and Isolation Panel [NHANES] Frequency of Communication with Friends and Family: More than three times a week Frequency of Social Gatherings with Friends and Family: Three times a week Attends Mandaen Services: More than 4 times per year Active Member of Clubs or Organizations: Yes Attends Club or Organization Meetings: More than 4 times per year Marital Status: Intimate Partner Violence: Not At Risk (06/24/2024) Humiliation, Afraid, Rape, and Kick questionnaire Fear of Current or Ex-Partner: No Emotionally Abused: No Physically Abused: No Sexually Abused: No Family History: [x] Rheumatoid arthritis [] Psoriasis [] Psoriatic arthritis (more content not included)... Normal [facility] [employer] Representative Authentication Interface Message Text Patient was identified by name and date of . Violet Srikanth Patient at risk for falls:No Falls Risk protocol implemented: No Normal [facility] RHEUMATOID FACTORon 06-26-20 RHEUMATOID FACTOR < 10 Normal <14 [facility] Comment on above: Performed By: #### C RP, RA #### [facility] [address] [place], [address] XR ARTHRITIS SURVEY HAND/WRI STon 06-26-2024 XR ARTHRITIS SURVEY HAND/WRIST EXAMINATION: XR ARTHRITIS SURVEY HAND/WRIST 06/26/2024 11:40 AM CLINICAL HISTORY: arthritis ASSOCIATED DIAGNOSIS: Polyarthralgia ORDERING PROVIDER: NIKHIL GREWAL TECHNVIRGEN NOTE: COMPARISON: None FINDINGS: IMPRESSION: No acute fracture or malalignment. No osseous erosion. No significant degenerative change. No radiopaque foreign body. MACRO: None Normal [facility] XR Hand Arthritison 06-26-20 EXAMINATION: XR ARTHRITIS SURVEY HAND/WRIST 06/26/2024 11:40 AM CLINICAL HISTORY: arthritis ASSOCIATED DIAGNOSIS: Polyarthralgia ORDERING PROVIDER: NIKHIL CARRILLO NOTE: COMPARISON: None FINDINGS: IMPRESSION: No acute fracture or malalignment. No osseous erosion. No significant degenerative change. No radiopaque foreign body. MACRO: None RADIOLOGY Dajuan Murray M D - 06/26/2024 EXAMINATION: XR ARTHRITIS SURVEY HAND/WRIST 06/26/2024 11:40 AM CLINICAL HISTORY: arthritis ASSOCIATED DIAGNOSIS: Polyarthralgia ORDERING PROVIDER: NIKHIL CARRILLO NOTE: COMPARISON: None FINDINGS: IMPRESSION: No acute fracture or malalignment. No osseous erosion. No significant degenerative change. No radiopaque foreign body. MACRO: None [facility] Study observation (narrative) [facility] XR Hand ArthritisOrdered By: Dajuan Murray on 06-26-2024 [facility] Work Phone: XR KNEE RT 1 OR 2 VWSon 11-12 XR KNEE RT 1 OR 2 VWS XR KNEE RT 1 OR 2 VWS XR KNEE RT 1 OR 2 VWS INDICATION: Postop right total knee arthroplasty, knee pain COMPARISON: None FINDINGS: No acute fracture or dislocation. Right total knee arthroplasty. Hardware appears to be intact, in appropriate positioning, without periprosthetic lucency or fracture. Postsurgical changes, anterior skin zhou, fluid and air within the suprapatellar joint. Small amount of air within subcutaneous soft tissues. IMPRESSION: Right total knee arthroplasty, expected postsurgical changes. Finalized by Quentin Moise on 12/01/2023 10:15 AM Normal [facility] ECG 12 leadon 11-05-2023 TRACEMASTERVUE [facility] BASIC METABOLIC PANLon 11-04 Anion gap [Moles/Vol] 4 mmol/L Low 5-15 [facility] Comment on above: Performed By: #### C BCA, BMP #### [facility] ([id number]) [address], [address] [place] [address] Calcium [Mass/Vol] 9.3 mg/dL Normal 8.5-10.5 [facility] Comment on above: Performed By: #### C BCA, BMP #### [facility] ([id number]) [address], [address] [place] [address] Chloride [Moles/Vol] 98 mmol/L Normal 98-109 [facility] Comment on above: Performed By: #### C BCA, BMP #### [facility] ([id number]) [address], [address] [place] [address] CO2 [Moles/Vol] 35 mmol/L High 22-32 [facility] Comment on above: Performed By: #### C BCA, BMP #### [facility] ([id number]) [address], [address] [place] [address] Creatinine [Mass/Vol] 0.70 mg/dL Normal 0.40-1.00 [facility] Comment on above: Result Comment: METH OD TRACEABLE TO IDMS STANDARD Performed By: #### C BCA, BMP #### [facility] ([id number]) [address], [address] [place] [address] eGFR (CKD-EPI) NON-RACE DEPENDENT >90 Normal >59 [facility] Comment on above: Result Comment: Reported eGFR is based on the CKD-EPI 2020 equation that does not use a race coefficient. Performed By: #### C SEVERIANO, BMP #### [facility] ([id number]) [address], [address] [place] [address] Glucose [Mass/Vol] 110 mg/dL High 65-99 [facility] Comment on above: Performed By: #### C BCA, BMP #### [facility] ([id number]) [address], [address] [place] [address] Potassium [Moles/Vol] 4.0 mmol/L Normal 3.5-5.0 [facility] Comment on above: Performed By: #### Sweetie العلي, BMP #### [facility] ([id number]) [address], [address] [place] [address] Sodium [Moles/Vol] 137 mmol/L Normal 134-146 [facility] Comment on above: Performed By: #### Sweetie BCA, BMP #### [facility] ([id number]) [address], [address] [place] [address] Urea nitrogen [Mass/Vol] 25 mg/dL High 5-23 [facility] Comment on above: Performed By: #### Sweetie BCA, BMP #### [facility] ([id number]) [address], [address] [place] [address] Basic Metabolic Panelon -2 Anion gap [Moles/Vol] 4 mmol/L Low 5 - 15 mmol/L [facility] Calcium [Mass/Vol] 9.3 mg/dL 8.5 - 10. 5 mg/dL [facility] Chloride [Moles/Vol] 98 mmol/L 98 - 109 mmol/L [facility] CO2 [Moles/Vol] 35 mmol/L High 22 - 32 mmol/L [facility] Creatinine [Mass/Vol] 0.70 mg/dL 0.40 - 1.00 mg/dL [facility] Comment on above: METHOD TRACEABLE TO IDMS STANDARD eGFR (CKD-EPI)non-race dependent - PINF [facility] Comment on above: Reported eGFR is based on the CKD-EPI 2020 equation that does not use a race coefficient. Glucose [Mass/Vol] 110 mg/dL High 65 - 99 mg/dL [facility] Interpretation and review of laboratory results Abnormal [facility] Potassium [Moles/Vol] 4.0 mmol/L 3.5 - 5.0 mmol/L [facility] Sodium [Moles/Vol] 137 mmol/L 134 - 146 mmol/L [facility] Urea nitrogen [Mass/Vol] 25 mg/dL High 5 - 23 mg/dL [facility] CBC AND AUTO DIFFon 11-04-19 ABSOLUTE BASOPHIL 0.0 X10E9/L Normal 0.0-0.2 [facility] Comment on above: Performed By: #### Sweetie العلي, BMP #### [facility] ([id number]) [address], [address] [place] [address] ABSOLUTE NEUTROPHIL 2.5 X10E9/L Normal 1.5-6.6 [facility] Comment on above: Performed By: #### Sweetie العلي, BMP #### [facility] ([id number]) [address], [address] [place] [address] Basophils/100 WBC (Bld) 0.3 % Normal [facility] Comment on above: Performed By: #### Sweetie العلي, BMP #### [facility] ([id number]) [address], [address] [place] [address] Eosinophils (Bld) [#/Vol] 0.1 10*3/uL Normal 0.0-0.4 [facility] Comment on above: Performed By: #### Sweetie العلي, BMP #### [facility] ([id number]) [address], [address] [place] [address] Eosinophils/100 WBC (Bld) 1.8 % Normal [facility] Comment on above: Performed By: #### Sweetie العلي, BMP #### [facility] ([id number]) [address], [address] [place] [address] Erythrocyte distribution width (RBC) [Ratio] 14.8 % Normal 11.5-15.0 [facility] Comment on above: Performed By: #### C BCA, BMP #### [facility] ([id number]) [address], [address] [place] [address] Hematocrit (Bld) [Volume fraction] 33.1 % Low 35-47 [facility] Comment on above: Performed By: #### C SEVERIANO, BMP #### [facility] ([id number]) [address], [address] [place] [address] Hemoglobin (Bld) [Mass/Vol] 11.1 g/dL Low 11.7-15.5 [facility] Comment on above: Performed By: #### C SEVERIANO, BMP #### [facility] ([id number]) [address], [address] [place] [address] Lymphocytes (Bld) [#/Vol] 2.1 10*3/uL Normal 1.0-3.5 [facility] Comment on above: Performed By: #### C SEVERIANO, BMP #### [facility] ([id number]) [address], [address] [place] [address] Lymphocytes/100 WBC (Bld) 41.0 % Normal [facility] Comment on above: Performed By: #### C BCA, BMP #### [facility] ([id number]) [address], [address] [place] [address] MCH (RBC) [Entitic mass] 29.1 pg Normal 27-34 [facility] Comment on above: Performed By: #### C BCA, BMP #### [facility] ([id number]) [address], [address] [place] [address] MCHC (RBC) [Mass/Vol] 33.5 g/dL Normal 32-36 [facility] Comment on above: Performed By: #### C BCA, BMP #### [facility] ([id number]) [address], [address] [place] [address] MCV (RBC) [Entitic vol] 87 fL Normal 80-100 [facility] Comment on above: Performed By: #### C BCA, BMP #### [facility] ([id number]) [address], [address] [place] [address] Monocytes (Bld) [#/Vol] 0.4 10*3/uL Normal 0-0.9 [facility] Comment on above: Performed By: #### C BCA, BMP #### [facility] ([id number]) [address], [address] [place] [address] Monocytes/100 WBC (Bld) 7.9 % Normal [facility] Comment on above: Performed By: #### C BCA, BMP #### [facility] ([id number]) [address], [address] [place] [address] Neutrophils/100 WBC (Bld) 49.0 % Normal [facility] Comment on above: Performed By: #### C BCA, BMP #### [facility] ([id number]) [address], [address] [place] [address] Platelet mean volume (Bld) [Entitic vol] 7.5 fL Normal 7-12 [facility] Comment on above: Performed By: #### C BCA, BMP #### [facility] ([id number]) [address] [address] [place] [address] Platelets (Bld) [#/Vol] 245 10*3/uL Normal 150-450 [facility] Comment on above: Performed By: #### C BCA, BMP #### [facility] ([id number]) [address], [address] [place] [address] RBC COUNT 3.81 X10E12/L Normal 3.80-5.20 [facility] Comment on above: Performed By: #### Sweetie العلي, BMP #### [facility] ([id number]) [address], [address] [place] [address] WBC (Bld) [#/Vol] 5.1 10*3/uL Normal 4.0-11.0 [facility] Comment on above: Performed By: #### Sweetie العلي, BMP #### [facility] ([id number]) [address], [address] [place] [address] CBC auto differentialon 10-12 Basophils (Bld) [#/Vol] 0.0 10*3/uL [facility] Basophils/100 WBC (Bld) 0.3 % [facility] Eosinophils (Bld) [#/Vol] 0.1 10*3/uL [facility] Eosinophils/100 WBC (Bld) 1.8 % [facility] Erythrocyte distribution width (RBC) [Ratio] 14.8 % 11.5 - 15.0 % [facility] Hematocrit (Bld) [Volume fraction] 33.1 % Low 35 - 47 % [facility] Hemoglobin (Bld) [Mass/Vol] 11.1 g/dL Low 11.7 - 15.5 g/dL [facility] Interpretation and review of laboratory results Abnormal [facility] Lymphocytes (Bld) [#/Vol] 2.1 10*3/uL [facility] Lymphocytes/100 WBC (Bld) 41.0 % [facility] MCH (RBC) [Entitic mass] 29.1 pg 27 - 34 pg [facility] MCHC (RBC) [Mass/Vol] 33.5 g/dL 32 - 36 g/dL [facility] MCV (RBC) [Entitic vol] 87 fL 80 - 100 fL [facility] Monocytes (Bld) [#/Vol] 0.4 10*3/uL [facility] Monocytes/100 WBC (Bld) 7.9 % [facility] Neutrophils (Bld) [#/Vol] 2.5 10*3/uL [facility] Neutrophils/100 WBC (Bld) 49.0 % [facility] Platelet mean volume (Bld) [Entitic vol] 7.5 fL 7 - 12 fL [facility] Platelets (Bld) [#/Vol] 245 10*3/uL [facility] RBC (Bld) [#/Vol] 3.81 10*6/uL [facility] WBC corrected for nucl RBC Auto (Bld) [#/Vol] 5.1 [facility] HGB A1C (GLYCO-HGB)on 2023 Glucose [Mass/Vol] 120 mg/dL Normal [facility] Comment on above: Performed By: #### Sweetie العلي, RAJ #### [facility] ([id number]) [address] [place] [address], [address] [place] [address] HbA1c (Bld) [Mass fraction] 5.8 % High 4.4-5.6 [facility] Comment on above: Result Comment: NOTE ADA Guidelines Result HgbA1c Normal : less than 5.7 % Prediabetes : 5.7 % to 6.4 % Diabetes : > 6.4 % Use with caution in patients with abnormal hemoglobin variants as the half-life of red blood cells and in vivo glycation rates are affected. Performed By: #### Sweetie العلي, BMP #### [facility] ([id number]) [address] [place] [address] Hemoglobin A1con 11-04-2023 Average glucose Estimated from glycated hemoglobin (Bld) [Mass/Vol] 120 mg/dL [facility] HbA1c (Bld) [Mass fraction] 5.8 % High 4.4 - 5.6 % [facility] Comment on above: NOTE ADA Guidelines Result HgbA1c Normal : less than 5.7 % Prediabetes : 5.7 % to 6.4 % Diabetes : > 6.4 % Use with caution in patients with abnormal hemoglobin variants as the half-life of red blood cells and in vivo glycation rates are affected. Interpretation and review of laboratory results Abnormal [facility] RAD - CT Reporton 10-15-2023 RAD - CT Report [id number]#[id number] F [facility] RAD - CT Report [id number]#1.00TIF F [facility] Consent for Procedure/Surger yon 10-12-2023 Consent for Procedure/Surgery [id number]#1.00TI FF [facility] Consent for Treatmenton Consent for Treatment [id number]#1.00TIF F [facility] IntraOperative Documentson 0 10-12-2023 IntraOperative Documents [id number] FF [facility] Main OR Intraoperative Recor don 10-12-2023 Main OR Intraoperative Record IntraOp Document Type [facility] Summary Primary Physician: Kavon SANTANA MD Finalized Date/Time: 10/12/23 08:56:28 Pt. Name: MARANDA DAVIS/Sex: 1970 Female Med Rec #: [id number] Physician: Kavon SANTANA MD Financial #: [id number] Pt. Type: O Room/Bed: / Admit/Disch: 10/12/23 07:43:53 - Institution: Case Times FTURO Entry 1 Patient Times In Room 10/12/23 08:35:00 Out Room 10/12/23 08:50:00 Procedure Times Start 10/12/23 08:40:00 Stop 10/12/23 08:47:00 Anesthesia Times Last Modified By: Fidel RN, Flores ROBERTS 10/12/23 08:45:25 Case Attendance FTURO Entry 1 Entry 2 Entry 3 Case Attendee MAX RANDOLPH, Kavon Irvin, Lauren Parra RN, CNOR, Flores Role Performed Surgeon - Primary Scrub - Primary Liquid Hydrogen Plant Operator - Primary Time In 10/12/23 08:35:00 10/12/23 08:35:00 10/12/23 08:35:00 Time Out 10/12/23 08:50:00 10/12/23 08:50:00 10/12/23 08:50:00 Procedure CYSTOSCOPY LOCAL WITH CYSTOSCOPY LOCAL WITH CYSTOSCOPY LOCAL WITH URETHRAL DILATION(.) URETHRAL DILATION(.) URETHRAL DILATION(.) Comments dianna shepard FLOATER OPERATOR in room a . zac peters orienting Last Modified By: Fidel PETERS, CNOR, Fidel RN, CNOR, Fidel RN, CNOR, Flores 10/12/23 Flores 10/12/23 Flores 10/12/23 08:45:29 08:45:29 08:45:29 Surgical Procedures FTURO Entry 1 Procedure Description Procedure CYSTOSCOPY LOCAL WITH Modifiers . URETHRAL DILATION Surgeon Description CYSTO Primary Procedure Yes Primary Surgeon MAX RANDOLPH, Kavon Richey 10/12/23 08:40:00 Stop 10/12/23 08:47:00 Anesthesia Type Local Surgical Service Urology Wound Class 2 - Clean-Contaminated Last Modified By: Fidel PETERS, CAROLINEOR, Flores 10/12/23 08:56:26 General Case Data FT[facility]O Pre-Care Text: Classifies surgical wound, implements aseptic technique, initiates traffic control Entry 1 Case Information OR URO 1 FT Case Level None Wound Class 2 - Clean-Contaminated Specialty Urology Preop Diagnosis HEMATURIA HESITANCY Postop Same As Preop No STRESS INCONTINCE Postop Diagnosis clear bladder Outcomes Met? Yes Last Modified By: Fidel PTEERS, CAROLINEOR, Flores 10/12/23 08:44:33 Post-Care Text: The patient is free from signs and symptoms of infection EU IntraOp - FT[facility]O Pre-Care Text: Implements protective measures prior to operative or invasive procedure, confirms identity before the operative or invasive procedure, verifies operative procedure, surgical site, and laterality Entry 1 EU Perioperative Protocols Procedure(s) CYSTOSCOPY LOCAL WITH Patient Identity Birthday, ID Band URETHRAL DILATION(.) Verified (select at Check, Patient least 2): Participation Consents / H and P HandP, Surgery/Procedure Operative Site N/A Verified Consent Marking Verified Surgical Site Yes Laterality Verified n/a Verified Procedure Verified Yes Correct Patient Yes Position Verified Availability Equipment, Medication Time Out Lauren Irvin WATERS Verified (If Participants Kavon RANDOLPH Stocker Applicable) ALEJANDRA PETERS Ruthann Time Out Complete 10/12/23 08:39:00 Allergies Reviewed? Yes Allergies Reviewed Self/Patient With Body Position Frog Legged Prep Area perineal area Prep Agents Betadine Solution Skin. Condition Unable to Visualize Additional None Specimens Collected Vitals - EU Blood Pressure 105/64 Pulse 58 bpm Respirations SPO2 EBL 0 IandO - EU Total Intake 0 mL Total Output 0 mL Outcomes Met? Yes Last Modified By: ALEJANDRA Parra RN, Ruthann 10/12/23 08:40:27 Post-Care Text: The patient is free from signs and symptoms of injury caused by extraneous objects Sign Out FTURO Entry 1 Before Patient Leaves OR Nurse verbally Yes Nurse verbally n/a confirms with the confirms with the team the name of team that the procedure(s) instrument, sponge, recorded and needle counts are correct (or N/A) Nurse verbally n/a Nurse verbally n/a confirms with the confirms with the team how the team whether there specimen is labeled are any equipment (including patient problems to be name), if applicable addressed Sign Out Complete 10/12/23 08:48:00 Last Modified By: ALEJANDRA Parra RN, Ruthann 10/12/23 08:45:40 Case Comments Finalized By: ALEJANDRA Parra RN, Ruthann Document Signatures Signed By: ALEJANDRA Parra RN, Ruthann 10/12/23 08:45 ALEJANDRA Parra RN, Ruthann 10/12/23 08:56 Normal [facility] Main OR Preoperative Recordo n 10-12-2023 Main OR Preoperative Record Holding Area Document Type FTURO Summary Primary Physician: Kavon SANTANA MD Finalized Date/Time: 10/12/23 08:01:37 Pt. Name: MARANDA DAVIS/Sex: 1970 Female Med Rec #: [id number] Physician: Kavon SANTANA MD Financial #: [id number] Pt. Type: O Room/Bed: / Admit/Disch: 10/12/23 07:43:53 - Institution: Case Times Holding FTURO Pre-Care Text: Verifies consent for planned procedure, identifies individual values and wishes concerning care, includes family members in perioperative teaching Secures patient's records' belongings, and valuables, maintains patient's dignity and privacy, and maintains patient confidentiality Entry 1 In Holding 10/12/23 07:54:00 Outcomes Met? Yes Last Modified By: ALEJANDRA Parra RN, Ruthann 10/12/23 07:54:48 Post-Care Text: The patient participates in decisions affecting his or her perioperative plan of care The patient's right to privacy is maintained Surgery Checklist FTURO Entry 1 Patient Birthday, ID Band Procedure History and Physical, Identification: Check, Patient Verification: Surgical Consent, With Participation Patient NPO after Midnight: n/a Personal Items: Jewelry Personal Items clothes Complaints of Pain: Yes Comment: Pain Comment: patient had a pain pump [employer] [place] for back pain Vitals - EU Blood Pressure 105/64 Pulse 58 bpm Respirations 14 br/min SPO2 Additional None RN Reviewed Yes Specimens Collected Last Modified By: ALEJANDRA Parra RN, Ruthann 10/12/23 08:01:35 Finalized By: ALEJANDRA Parra RN, Ruthann Document Signatures Signed By: ALEJANDRA Parra RN, Ruthann 10/12/23 08:01 Normal [facility] Operative Reporton Operative Report Patient: VINICIUS DAVIS Age: 53 years Sex: Female : 1970 Associated Diagnoses: None Author: Kavon SANTANA MD Procedure Operative Information Details: Date/ Time: 10/12/2023 08:48:00. Pre-Op Dx: Micro Hematuria - Asymptomatic - R31.21. Post-Op Dx: Same. Anesthesia Type: Local. Procedure: Local Cystoscopy. Complications: None. Risks/Benefits/Informed Consent: Surgical risks, benefits, details of the procedure have been explained to the patient, Full informed consent has been obtained. Intraoperative Information Prepped: Patient is brought back to the endoscopy suite, Patient is placed in modified dorso/lithotomy position, Patient prepped in the usual fashion with Betadine solution, 2% Xylocaine Jelly is placed per Urethra, After waiting several minutes the Cystoscope is introduced. The Urethra is: Normal. The Bladder is: Trabeculated (Moderate (2), No bladder tumors. Mild [place]. No A. V. Grade 1 cystocele). The ureteral orifices: Show efflux of clear urine. Devices Implanted: None. Removal: Cystoscope is removed, The patient tolerated it well. Postoperative Information Discharge: Patient is discharged home with antibiotic coverage, Follow up arranged. Normal [facility] Comment on above: Result Comment: Elec tronically Signed By: MAX RANDOLPH, Kavon Azul.br\Date and Time Signed: 10/12/23 08:49 EST Outpatient Surgery Discharge Instructionon 10-12-2023 Outpatient Surgery Discharge Instruction [id number] FF Normal [facility] CT urogramon 10-07-2023 CT urogram [facility] [place] [address] CT Scan Report Signed Patient: Maranda Davis MR#: [id number] 7 : 1970 Acct:[id number] Age/Sex: 53 / F ADM Date: 10/07/23 Loc: CT Room: Type: [facility] Attending Dr: Katia Rashid PA-C Copies to: Katia Rashid PA-C Ordering Provider: Katia Rashid PA-C Date of Service: 10/07/23 CT/CT urogram: R31.21, [id number] CT ABDOMEN AND PELVIS WITH AND WITHOUT INTRAVENOUS CONTRAST: CT UROGRAM CLINICAL HISTORY: Microscopic hematuria. Urinary retention. COMPARISON: None TECHNIQUE: Spiral images were obtained through the abdomen and pelvis were obtained before and after the administration of intravenous contrast. CT urogram protocol was utilized. This CT exam was performed using one or more following dose reduction techniques: Automated exposure control, adjustment of the mA and/or kV according to patient size, or use of iterative reconstruction technique. FINDINGS: Lung Bases: [Mild atelectasis/scarring.] Organs:Noncontrast images demonstrate no suspicious urinary tract calculus. No hydronephrosis. Postcontrast imaging demonstrates no enhancing renal or collecting system mass. Opacified ureters appear grossly unremarkable. Evaluation of the urinary bladder is suboptimal due to streak hardware artifact from the patient's left hip prosthesis. No focal abnormalities noted. Gallbladder has been removed. Liver spleen pancreas and adrenal glands appear unremarkable. Abdominal aorta appears normal in caliber.[ GI: Stomach is grossly unremarkable. Small bowel appears nondilated. Moderate stool burden.[ Pelvis:[Limited evaluation. No acute process is seen. Uterus appears to been removed.] Peritoneum/Retroperitone um:No free air, free fluid or lymphadenopathy.[ Abd wall/Bones:Abdominal wall demonstrates a presumed pain pump in place. Osseous structures demonstrate degenerative change. Hardware fixation lumbar spine.[ CT/CT urogram IMPRESSION: No upper collecting system abnormality is seen to explain the patient's hematuria. Impression dictated by: Moises Jenkins Jr., D.OPatricia10/07/2023 4:19 PM Dictation Location: [place] [address] Transcribed By: [facility] 10/07/23 1619 Dictated By: Moises Jenkins Jr, DO 10/07/23 1614 Signed By: 10/07/23 1619 [facility] Urine Cytology ([facility])on 11-18-2022 Urine Cytology Diagnosis Info Invalid Interpretation Code [facility] Comment on above: Result Comment: A:Ur ine,Urine:Voided Interpretation - MicroScopic Description - Adequacy - Gross Description Site ID:A color Yellow fixative Alcohol Specimen designated Urine received in alcohol preservative and labeled with the patient?s name, consists of 60ml clear yellow fluid. Electronically signed by : on: 09/17/2023 11:03:55 Performed By: #### 1 [id number] ####[facility] [id number] [place] [address] Physician Referralon 023 Physician Referral [id number] F Normal [facility] Screenson 09-15-2023 Screens [id number] F Normal [facility] Ambulatory Visit Summaryon 11-15-2022 Ambulatory Visit Summary MARANDA DAVIS :1970 Visit Date:09/14/2023 Ambulatory Visit Instructions Your Diagnosis Asymptomatic microscopic hematuria Urinary hesitancy [place] (stress urinary incontinence, female) Former smoker Tests Performed Urnls Dip Stick Auto w/o Microscopy POC [id number] CT Urogram -- Results Pending -- Please visit your patient portal for your results or contact your primary care physician. Your Care Team Attending Physician - KATIA RASHID PA-C Primary Care Physician - KRYSTAL GRAJEDA Referring Physician - KRYSTAL GRAJEDA This Is Your Medications List cephalexin (Keflex 500 mg Cap) oxybutynin (oxybutynin 10 mg ER Tab) oxybutynin (oxybutynin 5 mg ER Tab) Contact prescribing physician if questions or concerns HYDROmorphone amitriptyline (amitriptyline 25 mg Tab) baclofen clonazepam (clonazepam 1 mg Tab) clonidine duloxetine (duloxetine 60 mg oral delayed release capsule) estradiol (estradiol 2 mg Tab) furosemide (furosemide 40 mg Tab) modafinil (modafinil 200 mg Tab) spironolactone (spironolactone 25 mg Tab) tramadol (traMADOL 50 mg Tab) trazodone (traZODONE 50 mg Tab) [Image Removed: STOP]Stop taking these medications celecoxib (celecoxib 200 mg Cap) fluticasone nasal (fluticasone Nasal 0.05 mg/inh [place]) omeprazole (omeprazole 40 mg Cap-DR) pregabalin (pregabalin 200 mg Cap) tizanidine (tiZANidine 4 mg Tab) Procedures Performed Abdominal hysterectomy, Bilateral tubal ligation, CE - Cataract extraction, Cholecystectomy, Hip replacement, History of lumbar laminectomy, Lumbar spinal fusion, Tonsillectomy. Discharge Vitals Heart Rate (Peripheral) 58 Respiratory Rate 16 Blood Pressure 106/70 Height 178 cm Height 70 in Weight 94 kg Weight 206.8 lb BMI 29.67 What to do next You Need to Schedule the Following Appointments Follow Up with KATIA RASHID PA-C, RADHA When: Comments: sched cysto w/ poss UD Where: [address] [place] [address] [id number] Medications What How Much When Instructions New cephalexin (Keflex 500 mg Cap) 1 Capsules By Mouth Every day take one day before procedure and take one day after procedure Pickup at [facility]/pharmacy #[id number] Changed oxybutynin (oxybutynin 10 mg ER Tab) 30 EA, 0 Refill(s), TAKE 1 TABLET BY MOUTH EVERY DAY IN THE MORNING Changed oxybutynin (oxybutynin 5 mg ER Tab) 1 Tablets By Mouth Every day Duration: 14 Days Pickup at [facility]/pharmacy #[id number] Unchanged amitriptyline (amitriptyline 25 mg Tab) 30 EA, 0 Refill(s), TAKE 1 TABLET BY MOUTH EVERY DAY AT BEDTIME FOR 90 DAYS Contact prescribing physician if questions or concerns Unchanged baclofen By Mouth 3 times a day Contact prescribing physician if questions or concerns Unchanged clonazepam (clonazepam 1 mg Tab) 30 EA, 0 Refill(s), TAKE 1 TABLET BY MOUTH AT BEDTIME Contact prescribing physician if questions or concerns Unchanged clonidine Contact prescribing physician if questions or concerns Unchanged duloxetine (duloxetine 60 mg oral delayed release capsule) 60 EA, 0 Refill(s), TAKE 2 CAPSULES BY MOUTH EVERY DAY Contact prescribing physician if questions or concerns Unchanged estradiol (estradiol 2 mg Tab) 30 EA, 0 Refill(s), TAKE 1 TABLET BY MOUTH EVERY DAY Contact prescribing physician if questions or concerns Unchanged furosemide (furosemide 40 mg Tab) 60 EA, 0 Refill(s), TAKE 1 TABLET BY MOUTH TWICE A DAY Contact prescribing physician if questions or concerns Unchanged HYDROmorphone Contact prescribing physician if questions or concerns Unchanged modafinil (modafinil 200 mg Tab) 30 EA, 0 Refill(s), TAKE 1 TABLET BY MOUTH IN THE MORNING Contact prescribing physician if questions or concerns Unchanged spironolactone (spironolactone 25 mg Tab) 30 EA, 0 Refill(s), TAKE 1 TABLET BY MOUTH EVERY DAY Contact prescribing physician if questions or concerns Unchanged tramadol (traMADOL 50 mg Tab) 120 EA, 0 Refill(s), TAKE 1 TABLET (50 MG) BY MOUTH EVERY 6 HOURS NEEDED FOR SEVERE PAIN Contact prescribing physician if questions or concerns Unchanged trazodone (traZODONE 50 mg Tab) 30 EA, 0 Refill(s), TAKE 1 TABLET BY MOUTH EVERYDAY AT BEDTIME Contact prescribing physician if questions or concerns Pharmacy Information [facility]/pharmacy #[id number]: [address], [place] [id number] [phone] What When Comments Stop Taking celecoxib (celecoxib 200 mg Cap) 56 EA, 0 Refill(s), TAKE 1 CAPSULE BY MOUTH TWICE A DAY NEEDED FOR PAIN Stop Taking fluticasone nasal (fluticasone Nasal 0.05 mg/ inh [place]) 16 gm, 0 Refill(s), USE 2 SPRAY IN EACH NOSTRIL ONCE A DAY FOR 14 DAYS Stop Taking omeprazole (omeprazole 40 mg Cap-DR) 30 EA, 0 Refill(s), TAKE 1 CAPSULE ONCE DAILY 30 MINUTES BEFORE MORNING MEAL Stop Taking pregabalin (pregabalin 200 mg Cap) 90 EA, 0 Refill(s), TAKE 1 CAP BY MOUTH IN THE MORNING,1 CAP IN THE EVENING,AND 1 CAP BEFORE BEDTIME Stop Taking tizanidine (tiZANidine 4 mg Tab) 66 EA, 0 Refill(s), TAKE (more content not included)... Normal [facility] Patient Educationon 09-14-20 Patient Education Urology Hematuria, Adult Hematuria is blood in the urine. Blood may be visible in the urine, or it may be identified with a test. This condition can be caused by infections of the bladder, urethra, kidney, or prostate. Other possible causes include: ? Kidney stones. ? Cancer of the urinary tract. ? Too much calcium in the urine. ? Conditions that are passed from parent to child (inherited conditions). ? Exercise that requires a lot of energy. Infections can usually be treated with medicine, and a kidney stone usually will pass through your urine. If neither of these is the cause of your hematuria, more tests may be needed to identify the cause of your symptoms. It is very important to tell your health care provider about any blood in your urine, even if it is painless or the blood stops without treatment. Blood in the urine, when it happens and then stops and then happens again, can be a symptom of a very serious condition, including cancer. There is no pain in the initial stages of many urinary cancers. Follow these instructions at home: Medicines ? Take aaaf-hwg-jgyxlnz and prescription medicines only as told by your health care provider. ? If you were prescribed an antibiotic medicine, take it as told by your health care provider. Do not stop taking the antibiotic even if you start to feel better. Eating and drinking ? Drink enough fluid to keep your urine pale yellow. It is recommended that you drink 3?4 quarts (2.8?3.8 L) a day. If you have been diagnosed with an infection, drinking cranberry juice in addition to large amounts of water is recommended. ? Avoid caffeine, tea, and carbonated beverages. These tend to irritate the bladder. ? Avoid alcohol because it may irritate the prostate (in males). General instructions ? If you have been diagnosed with a kidney stone, follow your health care provider's instructions about straining your urine to catch the stone. ? Empty your bladder often. Avoid holding urine for long periods of time. ? If you are female: ? After a bowel movement, wipe from front to back and use each piece of toilet paper only once. ? Empty your bladder before and after sex. ? Pay attention to any changes in your symptoms. Tell your health care provider about any changes or any new symptoms. ? It is up to you to get the results of any tests. Ask your health care provider, or the department that is doing the test, when your results will be ready. ? Keep all follow-up visits. This is important. Contact a health care provider if: ? You develop back pain. ? You have a fever or chills. ? You have nausea or vomiting. ? Your symptoms do not improve after 3 days. ? Your symptoms get worse. Get help right away if: ? You develop severe vomiting and are unable to take medicine without vomiting. ? You develop severe pain in your back or abdomen even though you are taking medicine. ? You pass a large amount of blood in your urine. ? You pass blood clots in your urine. ? You feel very weak or like you might faint. ? You faint. Summary ? Hematuria is blood in the urine. It has many possible causes. ? It is very important that you tell your health care provider about any blood in your urine, even if it is painless or the blood stops without treatment. ? Take cynr-ufg-hrlrzlk and prescription medicines only as told by your health care provider. ? Drink enough fluid to keep your urine pale yellow. This information is not intended to replace advice given to you by your health care provider. Make sure you discuss any questions you have with your health care provider. Document Revised: 05/28/2021 Document Reviewed: 05/28/2021 [employer] Patient Education ? 2022 [employer] Cystoscopy Cystoscopy is a procedure that is used to help diagnose and sometimes treat conditions that affect the lower urinary tract. The lower urinary tract includes the bladder and the urethra. The urethra is the tube that drains urine from the bladder. Cystoscopy is done using a thin, tube-shaped instrument with a light and camera at the end (cystoscope). The cystoscope may be hard or flexible, depending on the goal of the procedure. The cystoscope is inserted through the urethra, into the bladder. Cystoscopy may be recommended if you have: ? Urinary tract infections that keep coming back. ? Blood in the urine (hematuria). ? An inability to control when you urinate (urinary incontinence) or an overactive bladder. ? Unusual cells found in a urine sample. ? A blockage in the urethra, such as a urinary stone. ? Painful urination. ? An abnormality in the bladder found during an intravenous pyelogram (IVP) or CT scan. Cystoscopy may also be done to remove a sample of tissue to be examined under a microscope (biopsy). Tell a health care provider about: ? Any allergies you have. ? All medicines you are taking, including vitamins, herbs, eye drops, creams, and ecfg-wrq-jstqfke medicines. (more content not included)... Normal [facility] Urine Cytology ([facility])on 11-15-2022 Method of Extraction Voided Normal [facility] Comment on above: Performed By: #### 1 [id number] ####[facility] [id number] [place] [address] Number of Jars 1 Invalid Interpretation Code [facility] Comment on above: Performed By: #### 1 [id number] ####[facility] [address] [place] [address] Specimen Urine Normal [facility] Comment on above: Performed By: #### 1 [id number] ####[facility] [id number] [place] [address] Type of Service Technical Only Normal [facility] Comment on above: Performed By: #### 1 [id number] ####[facility] [id number] [place] [address] COVID Quick Testingon 05-01 Result Negative [employer] Other Urinalysis - AUTOMATEDon Appearance (U) CLOUDY [employer] Other Bilirubin Ql (U) Negative Samplesaint Other Color (U) YELLOW [employer] Other Glucose Ql (U) Negative [employer] Other Hemoglobin Ql (U) MODERATE [employer] Other Ketones Ql (U) Negative [employer] Other Leukocyte esterase Test strip Ql (U) SMALL [employer] Other Nitrite Ql (U) Positive [employer] Other pH (U) 5.0 [pH] [employer] Other Protein Ql (U) 30 [employer] Other Specific gravity (U) [Rel density] 1.015 [employer] Other Urobilinogen (U) [Mass/Vol] 0.2 mg/dL [employer] Other Urinalysis - AUTOMATED [employer] Other Urine Cultureon 05-01-2023 Urine Culture >100,000 [employer] Other Bacteria identified Cx Nom (U) Reason for Exam Dysuria Urine ORGANISM: Escherichia coli (O:ESCCOL) [place] Count >100,000 Aerobic DIANA Charge (NMIC56) - SUSCEPTIBILITY ORGANISM: O:ESCCOL ANTIBIOTIC INTERPRETATION DIANA Amikacin S <16 Amoxacillin/K Clavulanate S <8 Ampicillin R >16 Ampicillin/Sulbactam I 1616/8 Aztreonam S <4 Cefazolin S <2 Cefepime S <2 Ceftazidime S <1 Ceftazidime/Avibactam S <4 Ceftolozane/Tazobactam S <2 Ceftriaxone S <1 Cefuroxime S <4 Ciprofloxacin S <0.25 Ertapenem S <0.5 Gentamicin S <2 Levofloxacin S <0.5 Meropenem S <1 Meropenem/Vaborbactam S <2 Nitrofurantoin S <32 Piperacillin/Tazobactam S <8 Tetracycline S <4 Tigecycline S <2 Tobramycin S <2 Trimethoprim/Sulfamethox azole S <0.5 S = SUSCEPTIBLE I = INTERMEDIATE R = RESISTANT BLANK = DATA NOT AVAILABLE, OR DRUG NOT ADVISABLE OR TESTED R* = RESISTANCE DUE TO EXTENDED SPECTRUM BETA-LACTAMASES ESBL = EXTENDED SPECTRUM BETA-LACTAMASE TFG = THYMIDINE-DEPENDENT STRAIN SILVANA = BETA-LACTAMASE POSITIVE IB = INDUCIBLE BETA-LACTAMASE. APPEARS IN PLACE OF 'S' WITH SPECIES KNOWN TO POSSESS INDUCIBLE BETA-LACTAMASES. POTENTIALLY THEY MAY BECOME RESISTANT TO ALL B-LACTAM DRUGS. PERFORMED BY: [place] [address] PATHOLOGIST NOVELTY DIPPER LISA MORIN M.D. [facility] Comment on above: Performed By: #### C UU #### [address] [address] [place] C reactive protein [Mass/vol ume] in Serum or PlasmaOrdered By: River Cunha on 02-16-2023 CRP [Mass/Vol] 1.1 mg/dL 0.0-0.5 [facility] C-Reactive Proteinon 023 C-Reactive Protein 1.1 mg/dL High 0.0-0.[address] [facility] Comment on above: Result Comment: PERF ORMED BY: [place] [address] PATHOLOGIST NOVELTY DIPPER LISA MORIN M.D. Performed By: #### C RP, CK, ESR #### [facility] [address] [place] [id number] [facility] Creatine Kinaseon 02-16-2023 CK [Catalytic activity/Vol] 81 U/L Normal [facility] Comment on above: Result Comment: PERF ORMED BY: [place] [address] PATHOLOGIST NOVELTY DIPPER LISA MORIN M.D. Performed By: #### C RP, CK, ESR #### [address] Creatine kinase [Enzymatic a ctivity/volume] in Serum or PlasmaOrdered By: River Cunha on 02-16-2023 CK [Catalytic activity/Vol] 81 U/L [facility] Erythrocyte Sedimentation Ra karina 02-16-2023 ESR (Bld) [Velocity] 28 mm/h Normal 0-29 [facility] Comment on above: Result Comment: PERF ORMED BY: [place] [address] PATHOLOGIST NOVELTY DIPPER LISA MORIN M.D. Performed By: #### C RP, CK, ESR #### [address] Erythrocyte sedimentation ra te by Photometric methodOrdered By: River Cunha on 02-16-2023 ESR Photometric method (Bld) [Velocity] 28 mm/hr 0-29 [facility] CBC AUTO DIFFon 10-28-2022 BASO # 0.0 103/ul Normal 0.0-0.1 [facility] Comment on above: Performed By: #### C BC #### [facility] [address] [place] [address] Dr. Amy Mejía Basophils/100 WBC (Bld) 0.5 % Normal 0.2-2.0 [facility] Comment on above: Performed By: #### C BC #### [facility] [address] [place] [address] Dr. Amy Mejía EO # 0.1 103/ul Normal 0.0-0.7 [facility] Comment on above: Performed By: #### C BC #### [facility] [address] [place] [address] Dr. Amy Mejía Eosinophils/100 WBC (Bld) 2.0 % Normal 0.9-7.0 [facility] Comment on above: Performed By: #### C BC #### [facility] [address] [place] [address] Dr. Amy Mejía Erythrocyte distribution width (RBC) [Ratio] 15.2 % Critically high 11.0-15.0 [facility] Comment on above: Performed By: #### C BC #### [facility] [address] [place] [address] Dr. Amy Mejía Hematocrit (Bld) [Volume fraction] 33.0 % Critically low 36.0-48.0 [facility] Comment on above: Performed By: #### C BC #### [facility] [address] [place] [address] Dr. Amy Mejía Hemoglobin (Bld) [Mass/Vol] 10.4 g/dL Critically low 12.0-16.0 [facility] Comment on above: Performed By: #### C BC #### [facility] [address] [place] [address] Dr. Amy Mejía IG # 0.01 10e3/ul Normal 0.00-0.03 [facility] Comment on above: Performed By: #### C BC #### [facility] [address] [place] [address] Dr. Amy Meíja IG % 0.2 % Normal 0.0-0.5 [facility] Comment on above: Performed By: #### C BC #### [facility] [address] [place] [address] Dr. Amy Mejía LYMPH # 1.9 103/ul Normal 1.2-3.8 [facility] Comment on above: Performed By: #### C BC #### [facility] [address] [place] [address] Dr. Amy Mejía Lymphocytes/100 WBC (Bld) 34.7 % Normal 20.5-60.0 [facility] Comment on above: Performed By: #### C BC #### [facility] [address] [place] [address] Dr. Amy Mejía MANUAL DIFF REQ NO Normal [facility] Comment on above: Performed By: #### C BC #### [facility] [address] [place] [address] Dr. Amy Mejía MCH (RBC) [Entitic mass] 26.7 pg Normal 26.7-34.0 [facility] Comment on above: Performed By: #### C BC #### [facility] [address] [place] [address] Dr. Amy Mejía MCHC (RBC) [Mass/Vol] 31.5 g/dL Normal 29.9-35.2 [facility] Comment on above: Performed By: #### C BC #### [facility] [address] [place] [address] Dr. Amy Mejía MCV (RBC) [Entitic vol] 84.8 fL Normal 81.0-99.0 [facility] Comment on above: Performed By: #### C BC #### [facility] [address] [place] [address] Dr. Amy Mejaí MONO # 0.5 103/ul Normal 0.3-0.8 [facility] Comment on above: Performed By: #### C BC #### [facility] [address] [place] [address] Dr. Amy Mejía Monocytes/100 WBC (Bld) 9.6 % Normal 1.7-12.0 [facility] Comment on above: Performed By: #### C BC #### [facility] [address] [place] [address] Dr. Amy Mejía NEUT # 2.9 103/ul Normal 1.4-6.5 [facility] Comment on above: Performed By: #### C BC #### [facility] [address] [place] [address] Dr. Amy Mejía Neutrophils/100 WBC (Bld) 53.0 % Normal 43.0-75.0 [facility] Comment on above: Performed By: #### C BC #### [facility] [address] [place] [address] Dr. Amy Mejía Platelet mean volume (Bld) [Entitic vol] 9.0 fL Critically low 9.5-13.5 [facility] Comment on above: Performed By: #### C BC #### [facility] [address] [place], [place] [address] Dr. Amy Mejía PLT 332 103/ul Normal 150-450 [facility] Comment on above: Performed By: #### C BC #### [facility] [address] [place] [address] [address] Amy Mejía RBC 3.89 106/ul Critically low 4.20-5.40 [facility] Comment on above: Performed By: #### C BC #### [facility] [address] [place] [id number] [address] Amy Mejía WBC 5.5 103/ul Normal 4.0-11.0 [facility] Comment on above: Performed By: #### C BC #### [facility] [address] [place] [address] [address] HEAD WO CONon 10-28-2022 CT HEAD WO CON INDICATION: 52 years old; Female. Generalized weakness. Migraine. Duration of headache, 5 days. Recent implanted pain pump for chronic back pain. TECHNIQUE: CT Head (ax/cor/sag reformats). Ionizing radiation dose reduced via iterative reconstruction/FBP blend and body size kV/mA adjustment. Comparison: No prior brain imaging studies are available for comparison. FINDINGS: POSTOPERATIVE CHANGES: None. BRAIN PARENCHYMA: No focal lesions. No mass effect. No midline shift or herniation. No intraparenchymal or extra-axial hemorrhage. Normal rosas/white differentiation. VENTRICLES/EXTRA-AXIAL SPACES: Normal for patient's age. 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 SINUSES/MASTOIDS: There is opacification of a single posterior ethmoid air cell on the left. The remaining visualized sinuses are clear. 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 The carotid canals projecting into the posterolateral aspects of the sphenoid sinuses. The sphenoid sinus septa insert on the carotid canals. Additionally, the optic canals projecting through the sphenoid sinuses. Mastoid air cells are clear. MSK: No displaced or depressed calvarial fracture is noted. OTHER: No hyperdense intraluminal thrombus is seen. IMPRESSION: 1. No acute intracranial abnormality. No hemorrhage or mass effect. Electronically authenticated by: MARY HOLMAN Date: 2022-10-28 01:43 Normal [facility] PROF CHEM 8 (BAS METB)on Anion gap [Moles/Vol] 7.8 mmol/L Normal [facility] Comment on above: Performed By: #### B MP #### [facility] [address] [address] [address] Amy Mejía Calcium [Mass/Vol] 8.9 mg/dL Normal 8.5-10.1 [facility] Comment on above: Performed By: #### B MP #### [facility] [address] [address] [address] Amy Mejía Chloride [Moles/Vol] 101 mmol/L Normal 98-107 [facility] Comment on above: Performed By: #### B MP #### [facility] [address] [address] [address] Amy Mejía CO2 [Moles/Vol] 33.7 mmol/L Critically high 21.0-32.0 [facility] Comment on above: Performed By: #### B MP #### [facility] [address] [address] [address] Amy Mejía Creatinine [Mass/Vol] 0.73 mg/dL Normal 0.55-1.02 [facility] Comment on above: Performed By: #### B MP #### [facility] [address] [place] [address] Dr. Amy Mejía EGFR-AF [place] >60 Normal >=60 [facility] Comment on above: Performed By: #### B MP #### [facility] [address] [address] [address] Amy Mejía EGFR-NON AF [place] >60 Normal >=60 [facility] Comment on above: Performed By: #### B MP #### [facility] [address] [address] [address] Amy Mejía Glucose [Mass/Vol] 117 mg/dL Critically high 74-106 [facility] Comment on above: Performed By: #### B MP #### [facility] [address] [place], [place] [address] Dr. Amy Mejía Potassium [Moles/Vol] 3.5 mmol/L Normal 3.5-5.1 [facility] Comment on above: Performed By: #### B MP #### [facility] [address] [place], [place] [address] Dr. Amy Mejía Sodium [Moles/Vol] 139 mmol/L Normal 136-145 [facility] Comment on above: Performed By: #### B MP #### [facility] [address] [place], [place] [address] Dr. Amy Mejía Urea nitrogen [Mass/Vol] 15.0 mg/dL Normal 7.0-18.0 [facility] Comment on above: Performed By: #### B MP #### [facility] [address] [place], [place] [address] Dr. Amy Mejía Urea nitrogen/Creatinine [Mass ratio] 20.5 mg/mg Normal [facility] Comment on above: Performed By: #### B MP #### [facility] [address] [place], [place] [address] Dr. Amy Mejía SCREENING MAMMOGRAM W/OSBALDO, BILATERAL*on 02-05-2022 SCREENING MAMMOGRAM W/OSBALDO, BILATERAL* EXAMINATION: Screening Mammogram CLINICAL HISTORY: Unremarkable. COMPARISON: Dating back to 02/28/2016 TECHNIQUE: 2D and 3D Tomosynthesis of the right and left breasts was performed. FINDINGS: The breast parenchyma is heterogeneously dense bilaterally, which may obscure a small mass. There are no suspicious masses, areas of suspicious microcalcifications or areas of architectural distortion identified. No evidence of skin thickening. There are stable areas of asymmetric density present. IMPRESSION: BIRADS 2 : BENIGN FINDINGS, NORMAL INTERVAL FOLLOW UP. MAMMOGRAPHY IS VERY IMPORTANT TO YOUR HEALTH. THE CURRENT [place] [employer] AND [employer] GUIDELINES RECOMMEND ANNUAL MAMMOGRAPHY BEGINNING AT AGE 40. THIS FACILITY UTILIZES A REMINDER SYSTEM TO ENSURE ALL PATIENTS RECEIVE A REMINDER NOTIFICATION AT THE APPROPRIATE TIME BASED ON THE RECOMMENDATIONS OF THIS EXAM. 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 ACCREDITED BY THE [facility] AND FDA. Report reported and signed by Tawana Irvin on 02/05/2022 1221 Normal [facility] XR TSPINE 2 VIEWSon 11-26-19 22 XR TSPINE 2 VIEWS EXAMINATION: XR TSPI NE 2 VIEWS HISTORY: Pain in thoracic spine , chronic COMPARISON: XR thoracic spine 06/26/2016 FINDINGS: BONES: Multilevel mild degenerative endplate changes. Minimal anterior wedging of T5; developmental versus remote injury. DISC SPACES: Multilevel mild disc space narrowing involving the upper thoracic spine. PARASPINOUS: Negative. No paraspinous abnormality is seen. OTHER: Moderate narrowing of C4-5 and C5-6 disc spaces. IMPRESSION: 1. No appreciable acute abnormality. 2. Degenerative disc disease noted within the lower cervical spine. 3. Multilevel mild degenerative changes of the upper and mid thoracic spine. 4. Interval removal of previously seen central canal neurostimulator electrodes.. Electronically authenticated by: CHAUNCEY FERRARA Date: 2021-11-26 10:26 Normal [facility] Office Visit (Cardiology)on 09-25-2021 Follow-up visit Diagnoses/Problems Assessed Preoperative clearance (V72.84) (Z01.818) Abnormal EKG (794.31) (R94.31) Class 2 obesity with body mass index (BMI) of 35.0 to 35.9 in adult (278.00,V85.35) (E66.9,Z68.35) Former smoker (V15.82) (Z87.891) Quit in 2014. Orders Abnormal EKG, Preoperative clearance IO EKG Electrocardiogram- 12 Lead; Status:Complete; Done: [id number] Class 2 obesity with body mass index (BMI) of 35.0 to 35.9 in adult Healthy Weight Tips; Status:Complete - Retrospective Authorization; Done: [id number] SocHx: Former smoker Tobacco Use Screening; Status:Complete; Done: [id number] Patient Instructions By signing my name below, I, Ree Mazariegos LPN, Scribe, attest that this documentation has been prepared under the direction and in the presence of Dr. Mary San DO. All medical record entries made by the Raven were at my direction and personally dictated by me. I have reviewed the chart and agree that the record accurately reflects my personal performance of the history, physical exam, discussion and plan. Please bring all medicines, vitamins, and herbal supplements with you when you come to the office. Prescriptions will not be filled unless you are compliant with your follow up appointments or have a follow up appointment scheduled as per instruction of your physician. Refills should be requested at the time of your visit. Follow-up as needed only Chief Complaint MARANDA DAVIS is being seen for a consultation for pre-operative clearance and 10/08/2021 [place]. History of Present Illness Ms. Davis is a 51-year-old female who is seen at the request of Dr. Calvert for preoperative clearance for her to undergo knee surgery. She apparently was referred here for what was considered to be an abnormal EKG. This EKG is not available for review but the EKG done here in the office is entirely normal. She has no cardiac history and no cardiac complaints. Prior to having problems with her knee she was able to walk at least several blocks without any difficulty and without anginal symptoms. Her surgical procedure would be low risk. Past medical history and review of systems as per office record. Physical exam: HEENT: No carotid bruits are heard Neck: No lymphadenopathy Lungs: Clear Heart: Regular rate and rhythm without murmurs or extra sounds Abdomen: Obese soft Extremities: No significant edema Neurologic: Intact and nonfocal Skin: No significant lesion Impression and plan: 1) preoperative clearance requested for a 51-year-old female who has a normal EKG and no anginal symptoms and no history of coronary disease. There is no cardiac contraindications for her to proceed with her surgery. 2) follow-up with primary care for management of other medical problems. Surgical History Problems History of Back Surgery History of Bunion Correction By Pak Procedure History of Complete colonoscopy 10/11/2016 History of Hernia Repair Inguinal Sliding History of Hip replacement History of Spinal Arthrodesis Past Medical History Problems History of Generalized anxiety disorder (300.02) (F41.1) History of allergic rhinitis (V12.69) (Z87.09) History of depression (V11.8) (Z86.59) History of gastroesophageal reflux (GERD) (V12.79) (Z87.19) History of gestational diabetes (V12.21) (Z86.32) Personal history of scoliosis (V13.59) (Z87.39) Personal history of spinal stenosis (V13.59) (Z87.39) History of Vitamin D deficiency (268.9) (E55.9) Current Meds Medication NameInstruction Adipex-P 37.5 MG Oral CapsuleTAKE 1 CAPSULE EVERY MORNING BEFORE BREAKFAST. Amitriptyline HCl - 25 MG Oral TabletTAKE 1 TABLET AT BEDTIME. clonazePAM 1 MG Oral TabletTAKE 1 TABLET TWICE DAILY NEEDED. DULoxetine HCl - 60 MG Oral Capsule Delayed Release ParticlesTAKE 1 CAPSULE Daily Estradiol 0.5 MG Oral TabletTAKE 1 TABLET DAILY. Furosemide 20 MG Oral TabletTAKE 1 TABLET TWICE DAILY. Omeprazole 40 MG Oral Capsule Delayed ReleaseTAKE 1 CAPSULE Daily Potassium Gluconate ER 595 MG Oral Tablet Extended ReleaseTake 1 tablet daily Pregabalin 200 MG Oral CapsuleTake 1 capsule twice daily tiZANidine HCl - 4 MG Oral TabletUSE DIRECTED. traZODone HCl - 50 MG Oral TabletTAKE 1 TABLET AT BEDTIME NEEDED. Allergies Medication Dilaudid Allergy; Headache; Rash; Recorded By: Maxine Toro; 09/25/2021 1:11:49 PM Social History Problems Daily caffeine consumption 4 cups daily. Disabled Former smoker (V15.82) (Z87.891) Quit in 2014. No alcohol use No illicit drug use Review of Systems Constitutional: not feeling tired. Cardiovascular: no intermittent leg claudication and as noted in HPI. Respiratory: shortness of breath, but no cough. Gastrointestinal: no change in bowel habits and no blood in stools. Integumentary: no skin rashes. Neurological: no seizures and no frequent falls. All other systems have been reviewed and are negative for complaint. Vitals Vital S (more content not included)... Normal [employer] Tobacco Screening.on 021 Fall risk assessment c) Not medically indicated [facility] DO Work Phone: Tobacco use status [facility] b) No [facility] DO Work Phone: Anesthesia Noteon 05-14-2021 Anesthesia Note [facility] Patient: MARANDA DAVIS [address] [place] [address] MR#: [id number] ANESTHESIA NOTE : Service Date: 05/14/21 1047 Post-anesthesia Note Note Patient assessed post operatively for the following: [x ] Respiratory function, including respiratory rate, airway patency and oxygen saturation [x ] Cardiovascular function, including pulse rate and blood pressure [x ] Mental status [x ] Temperature [x ] Pain [x ] Nausea and vomiting [x ] Postoperative hydration [ x] No Visual Changes Due to the following condition(s) additional monitoring may be necessary: [ ] [x ] No apparent anesthesia complications noted. [x ] Status as per pre-op Electronically Signed eSign Date and Time Root,Ary 05/14/21 1047 Shashank Britt MD Normal [facility] BASIC MET PANELon 05-14-2021 Anion gap [Moles/Vol] 8 mmol/L Normal 6-18 [facility] Comment on above: Order Comment: CONSE RVATION Performed By: #### L 600.26387 #### Test performed at: [address] [address] Calcium [Mass/Vol] 8.2 mg/dL Low 8.5-10.1 [facility] Comment on above: Order Comment: CONSE RVATION Performed By: #### L 600.56958 #### Test performed at: [address] [address] Chloride [Moles/Vol] 101 mmol/L Normal 98-107 [facility] Comment on above: Order Comment: CONSE RVATION Performed By: #### L 600.30445 #### Test performed at: [address] [address] CO2 [Moles/Vol] 32 mmol/L Normal 21-32 [facility] Comment on above: Order Comment: CONSE RVATION Performed By: #### L 600.56106 #### Test performed at: [address] [address] Creatinine [Mass/Vol] 0.518 mg/dL Low 0.550-1.020 [facility] Comment on above: Order Comment: CONSE RVATION Performed By: #### L 600.93935 #### Test performed at: [address] [address] Glucose [Mass/Vol] 115 mg/dL High 70-99 [facility] Comment on above: Order Comment: CONSE RVATION Result Comment: Fast ing GLUCOSE reference range has been updated per (ADA) [place] [employer]'s recommendation. 01/03/2019 Performed By: #### L 600.03296 #### Test performed at: [address] [address] OSM 284 mosm/kg Normal 270-300 [facility] Comment on above: Order Comment: CONSE RVATION Performed By: #### L 600.99399 #### Test performed at: [address] [address] Potassium [Moles/Vol] 4.2 mmol/L Normal 3.5-5.1 [facility] Comment on above: Order Comment: CONSE RVATION Performed By: #### L 600.07994 #### Test performed at: [address] [address] Sodium [Moles/Vol] 137 mmol/L Normal 136-145 [facility] Comment on above: Order Comment: CONSE RVATION Performed By: #### L 600.09222 #### Test performed at: [address] [address] Urea nitrogen [Mass/Vol] 9 mg/dL Normal 7-18 [facility] Comment on above: Order Comment: CONSE RVATION Performed By: #### L 600.06340 #### Test performed at: [address] [address] CBC W/DIFFon 05-14-2021 BASO ABS 0.0 K/uL Normal 0.0-0.2 [facility] Comment on above: Order Comment: CONSE RVATION Performed By: #### L 600.15481 #### Test performed at: [address] [address] Basophils/100 WBC (Bld) 0.0 % Normal [facility] Comment on above: Order Comment: CONSE RVATION Performed By: #### L 600.31875 #### Test performed at: [address] [address] EOS ABS 0.0 K/uL Normal 0.0-0.5 [facility] Comment on above: Order Comment: CONSE RVATION Performed By: #### L 600.96398 #### Test performed at: [place] [id number] Eosinophils/100 WBC (Bld) 0.0 % Normal [facility] Comment on above: Order Comment: CONSE RVATION Performed By: #### L 600.04480 #### Test performed at: [place] [id number] Erythrocyte distribution width (RBC) [Ratio] 13.5 % Normal 11.5-14.5 [facility] Comment on above: Order Comment: CONSE RVATION Performed By: #### L 600.75314 #### Test performed at: [place] [id number] Hematocrit (Bld) [Volume fraction] 33.6 % Low 36.0-48.0 [facility] Comment on above: Order Comment: CONSE RVATION Performed By: #### L 600.79428 #### Test performed at: [place] [id number] Hemoglobin (Bld) [Mass/Vol] 10.6 g/dL Low 12.0-15.0 [facility] Comment on above: Order Comment: CONSE RVATION Performed By: #### L 600.13802 #### Test performed at: [place] [id number] IG % 0.4 % Normal [facility] Comment on above: Order Comment: CONSE RVATION Performed By: #### L 600.18813 #### Test performed at: [address] [address] IG ABS 0.04 K/uL Normal 0-0.05 [facility] Comment on above: Order Comment: CONSE RVATION Performed By: #### L 600.65248 #### Test performed at: [address] [address] Lymphocytes (Bld) [#/Vol] 1.3 10*3/uL Normal 1.2-3.5 [facility] Comment on above: Order Comment: CONSE RVATION Performed By: #### L 600.98415 #### Test performed at: [place] [address] Lymphocytes/100 WBC (Bld) 14.3 % Normal [facility] Comment on above: Order Comment: CONSE RVATION Performed By: #### L 600.28037 #### Test performed at: [address] [address] MCH (RBC) [Entitic mass] 28.4 pg Normal 25.4-34.6 [facility] Comment on above: Order Comment: CONSE RVATION Performed By: #### L 600.25604 #### Test performed at: [address] [address] MCHC (RBC) [Mass/Vol] 31.5 g/dL Normal 31.5-36.5 [facility] Comment on above: Order Comment: CONSE RVATION Performed By: #### L 600.76607 #### Test performed at: [address] [address] MCV (RBC) [Entitic vol] 90.1 fL Normal 79.0-98.0 [facility] Comment on above: Order Comment: CONSE RVATION Performed By: #### L 600.60739 #### Test performed at: [address] [address] MONO ABS 0.6 K/uL Normal 0.0-1.0 [facility] Comment on above: Order Comment: CONSE RVATION Performed By: #### L 600.75840 #### Test performed at: [address] [address] Monocytes/100 WBC (Bld) 6.6 % Normal [facility] Comment on above: Order Comment: CONSE RVATION Performed By: #### L 600.04188 #### Test performed at: [address] [address] NEUTROPHIL ABS 7.4 K/uL High 1.4-6.6 [facility] Comment on above: Order Comment: CONSE RVATION Performed By: #### L 600.85645 #### Test performed at: [address] [address] Neutrophils/100 WBC (Bld) 78.7 % Normal [facility] Comment on above: Order Comment: CONSE RVATION Performed By: #### L 600.93198 #### Test performed at: [address] [address] NRBC # 0.000 K/uL Normal 0-0.012 [facility] Comment on above: Order Comment: CONSE RVATION Performed By: #### L 600.12028 #### Test performed at: [address] [address] NRBC % 0.0 /100 WBC Normal 0-0.2 [facility] Comment on above: Order Comment: CONSE RVATION Performed By: #### L 600.59264 #### Test performed at: [address] [address] Platelet mean volume (Bld) [Entitic vol] 9.1 fL Normal 8.7-12.4 [facility] Comment on above: Order Comment: CONSE RVATION Performed By: #### L 600.42748 #### Test performed at: [address] [address] Platelets (Bld) [#/Vol] 264 10*3/uL Normal 140-440 [facility] Comment on above: Order Comment: CONSE RVATION Performed By: #### L 600.92615 #### Test performed at: [address] [address] RBC (Bld) [#/Vol] 3.73 10*6/uL Normal 3.5-5.5 [facility] Comment on above: Order Comment: CONSE RVATION Performed By: #### L 600.82734 #### Test performed at: [address] [address] WBC (Bld) [#/Vol] 9.4 10*3/uL Normal 3.9-11.0 [facility] Comment on above: Order Comment: CONSE RVATION Performed By: #### L 600.84513 #### Test performed at: [address] [address] EST. CREAT CLRon 05-14-2021 EST. CREAT CLR 213.320 ML/MIN Normal [facility] Comment on above: Order Comment: CONSE RVATION Result Comment: This result is an ESTIMATED blood creatinine clearance value which is derived from the patient age, sex, weight, and previous blood creatinine result. Performed By: #### L 600.90814 #### Test performed at: [address] [address] GFR ESTIMATEon 05-14-2021 IF AMER > 60 Normal > 60 [facility] Comment on above: Order Comment: CONSE RVATION Result Comment: eGFR (Estimated GFR) Units of measure:mL/min/1.73 meters sq. *CALCULATION REVISED 07/30/2015;IDMS-traceable MDRD equation eGFR is derived from the reexpressed MDRD Study equation using the following parameters: serum creatinine, age, gender and race. An eGFR<60 mL/min/1.73m2 for >3 months is consistent with chronic kidney disease. Refer to KDOQI guidelines for clinical interpretation. Performed By: #### L 600.58263 #### Test performed at: [place] [address] IF non-AFR AMER > 60 Normal > 60 [facility] Comment on above: Order Comment: CONSE RVATION Performed By: #### L 600.49454 #### Test performed at: [place] [address] Internal Med Progress Noteon 05-14-2021 Internal Med Progress Note [facility] Patient: MARANDA DAVIS [address] [place] [address] MR#: [id number] PROGRESS NOTE - Internal Medicine : 71 Service Date: 05/14/21 0557 Subjective Summary of Stay A 51 years old female with PMH of multiple back surgeries in the past with pain pump( containing Diluaidid, baclofen and clonidine in her abdomen), DM 2 controlled with diet, OA, Lupus/Fibromyalgia, Osteoprorosis and Anemia who is S/P Left THR POD0(DOS 05/13/2021). EBL 350ml, 185 was returned. Internal medicine team was consulted for medical disease management.PT was seen and examined today. she complains of left hip pain 6/10, dull and achy. she denied any chest pain, sob, cough, palpitation, fever, chills, abdominal pain or leg swelling. she has drain in place Events since last encounter none Subjective PT was seen and examined today. she complains of left hip pain 6/10, dull and achy. she denied any chest pain, sob, cough, palpitation, fever, chills, abdominal pain or leg swelling. she has drain in place General Denies Chills, Denies Fatigue, Denies Malaise HEENT Denies Head Aches, Denies Visual Changes, Denies Eye Pain, Denies Ear Pain, Denies Sinus Congestion, Denies Post Nasal Drip Pulmonary Denies Dyspnea, Denies Cough, Denies Pleuritic Chest Pain Cardiovascular Denies Chest Pain, Denies Palpitations, Denies Orthnopnea, Denies Paroxysmal Noc. Dyspnea, Denies Edema Gastrointestinal Denies Nausea, Denies Vomiting, Denies Abdominal Pain, Denies Diarrhea, Denies Constipation Genitourinary Denies Dysuria, Denies Frequency, Denies Incontinence, Denies Retention Musculoskeletal Other, Denies Neck Pain, Denies Shoulder Pain, Denies Arm Pain Neurological Denies Weakness, Denies Numbness Objective Exam Vitals and I/O Vital Signs Verdana 4d Result Date Time Pulse Ox 96 05/14 0418 B/P 104/55 05/14 0418 O2 Delivery NASAL CANNULA 05/14 418 Temp 36.2 05/14 041 Pulse 87 05/14 0418 Resp 20 05/14 0418 O2 Flow Rate 2 05/13 1730 Intake AND Output Verdana 4d 05/14 2300 05/13 2300 Intake Total 1100 500 Output Total 35 0 Balance 1065 500 Intake, IV 1100 Oral 0 500 utput, 35 rainage Output, Urine 0 0 Patient 104 kg eight Weight PATIENT STATES easurement ethod General Appearance Alert, Oriented X3, Cooperative, No Acute Distress HEENT Atraumatic, Mucous Membr. moist/pink Lungs Clear to Auscultation, Normal Air Movement Neck Supple, No JVD, No thryomegaly Cardiovascular Regular Rate, Normal S1, Normal S2, No Murmurs Abdomen Normal Bowel Sounds, Soft Extremities PCD in place Skin No Significant Lesion Neurological Normal Speech Assessment/Plan-Internal Med Med Reasons/Tx for Con't stay S/P surgery Assessment #S/P Left THR POD1 (DOS 05/13/2021) #OA #Osteoporosis * Internal medicine team was consuled for medical disease management. * PT was seen and examined today. she complains of left hip pain 6/10, dull and achy. she denied any chest pain, sob, cough, palpitation, fever, chills, abdominal pain or leg swelling. she has drain in place * passed urin but not stool * Vitals Verdana 4d Blood Pressure 104/55 05/14/21 0418 Pulse Rate 87 05/14/21 0418 Respiratory Rate 20 05/14/21 0418 Temperature 36.2 05/14/21 0418 PE benign. Drain in place. bowel sounds are active Chemistry 05/14/21 0513: Laboratory Tests 05/14/21 0513: plan: Incentive spirometry pain meds as per ortho: morphine, Ketorolac, Tylenol, Perococet Bowel care: Bisacodyl, MOM,Docusate sodium, Cefazolin 2 doses Vasotec PRN #DM 2 controlled with diet will observe last HBA1C 5.9 #Lupus/Fibromyalgia Duloxetine #Anemia: HB 10.6 with MCV of 90.1 Ferrous sulfate #DVT PPX as per ortho PCD, Encourage ambulation and ASA 81 mg daily Be sure to note changes Be sure to note changes DVT Prophylaxis as above *Attending Attestation Attending Attestation Attending Attestation All pertinent elements of history and physical exam were confirmed by me. Agree with above documentation mild anemia Electronically Signed eSign Date and Time Kurtis Bal RES, Katarzyna MD 05/14/21 1529 Sascha Van Resident Normal [facility] OT Therapy Recommendationson 05-14-2021 OT Therapy Recommendations [facility] Patient: MARANDA DAVIS [address] [place] [address] MR#: [id number] OT THERAPY RECOMMENDATIONS : 72 Service Date: 05/14/21 1249 Therapy Recommendations Therapy Recommendations Recommendations OT evaluation completed. OT recommends HOME with HOME HEALTH OT and Family assist upon discharge. OT will follow in house per OT POC. Electronically Signed eSign Date and Time Ana Robb OT 05/14/21 1250 Normal [facility] Orthopedic Progress Noteon 0 05-14-2021 Orthopedic Progress Note [facility] Patient: MARANDA DAVIS1 [place] [id number] MR#: [id number] PROGRESS NOTE - Orthopedic : 72 Service Date: 05/14/21 1249 Objective Exam General Appearance Alert, Oriented X3, Cooperative, No Acute Distress HEENT PERRLA Lungs Clear to Auscultation Neck Supple Cardiovascular Regular Rate Abdomen Normal Bowel Sounds, Soft, No Tenderness Extremities No Edema, Normal Pulses, No Tenderness/Swelling Skin No Rashes, No Breakdown, No Significant Lesion Neurological Normal Gait, Normal Speech, Strength at 5/5 X4 Ext, Normal Tone, Sensation Intact Psych/Mental Status Mental Status NL Other Physical Findings Laboratory Tests Last 24 Hrs 05/14 0513 Chemistry Sodium (136 - 145 mmol/L) 137 Potassium (3.5 - 5.1 mmol/L) 4.2 Chloride (98 - 107 mmol/L) 101 Carbon Dioxide (21 - 32 mmol/L) 32 Anion Gap (6 - 18) 8 BUN (7 - 18 mg/dL) 9 Creatinine (0.550 - 1.020 mg/dL) 0.518 L Estim Creat Clear Calc (ML/MIN) 213.320 Est GFR ( Amer) (> 60) > 60 Est GFR (Non-Af Amer) (> 60) > 60 Glucose (70 - 99 mg/dL) 115 H Calculated Osmolality (270 - 300 mosm/kg) 284 L ematology WBC (3.9 - 11.0 K/uL) 9.4 RBC (3.5 - 5.5 M/uL) 3.73 Hgb (12.0 - 15.0 g/dL) 10.6 L Hct (36.0 - 48.0 %) 33.6 L MCV (79.0 - 98.0 fL) 90.1 MCH (25.4 - 34.6 pg) 28.4 g/dL) 31.5 RDW (11.5 - 14.5 %) 13.5 Plt Count (140 - 440 K/uL) 264 MPV (8.7 - 12.4 fL) 9.1 Immature Gran % (Auto) (%) 0.4 Neut % (Auto) (%) 78.7 Lymph % (Auto) (%) 14.3 [place] % (Auto) (%) 6.6 (Auto) (%) 0.0 Baso % (Auto) (%) 0.0 Neut # (Auto) (1.4 - 6.6 K/uL) 7.4 H Lymph # (Auto) (1.2 - 3.5 K/uL) 1.3 [place] # (Auto) (0.0 - 1.0 K/uL) 0.6 Eos # (Auto) (0.0 - 0.5 K/uL) 0.0 0.2 K/uL) 0.0 Immature Gran # (Auto) (0 - 0.05 K/uL) 0.04 Nucleated RBC % (0 - 0.2 /100 WBC) 0.0 Nucleated RBCs # (0 - 0.012 K/uL) 0.000 Vital Signs Verdana 4d Result Date Time Pulse Ox 95 05/14 1115 B/P 112/56 05/14 1115 O2 Delivery ROOM AIR 05/14 1115 Temp 36.3 05/14 1115 Pulse 84 05/14 1115 Resp 20 05/14 1115 O2 Flow Rate 2 05/13 1730 Intake AND Output Verdana 4d 05/14 2300 05/13 2300 Intake Total 1100 500 Total 35 0 alance 1065 500 Intake, IV 1100 Intake, Oral 0 500 Output, 35 rainage Output, Urine 0 0 Patient 104 kg eight Weight PATIENT STATES easurement ethod MINIMAL POST OP PAIN. DENIES NUMBNESS AND TINGLING. NO CALF TENDERNESS. STRENGTH WNL. UP WALKING WITH STRONG STEADY GAIT. BULKY SURGICAL DRESSING REMOVED INCISION COVERED WITH MEPILEX DRESSING DRY AND INTACT. DRAIN REMOVED WITHOUT DIFFICULTY. HELD PRESSURE AND PLACE ELIZABETH WRAP AROUND LEG. DRAIN HOLE UNDER MEPILEX DRESSING AND COULD NOT APPLY TAPE. DISCHARGE INSTRUCTIONS DISCUSSED PATIENT STATED UNDERSTANDING. DR CORREA IN TO SEE PATIENT THIS AM AWARE OF ABOVE AND PLAN OF CARE Assessment and Plan - ICD10 Problem List 1. Lumbar degenerative disc disease 2. History of goiter 3. ANJU (obstructive sleep apnea) 4. Fibromyalgia 5. HTN (hypertension) 6. Obese 7. Overactive bladder 8. S/P lumbar fusion 9. Status post total replacement of left hip Assessment D/C HOME TODAY WITH [facility] FOLLOW UP WITH DR CORREA IN 2 WEEKS Electronically Signed eSign Date and Time Shavonne Pool RN 05/14/21 5520 Joelle Correa MD [facility] Orthopedic Progress Note [facility] Patient: MARANDA DAVIS [address] [place] [address] MR#: [id number] PROGRESS NOTE - Orthopedic : 72 Service Date: 05/14/21938 Assessment and Plan - ICD10 Assessment PER DR CORREA I AM ORDERING A WHEELED WALKER FOR AMBULATION AT HOME DUE TO LEFT HIP REPLACEMENT. PATIENT IS AWARE AND STATES UNDERSTANDING. Electronically Signed eSign Date and Time Shavonne Pool RN 05/14/21 0969 Joelle Correa MD [facility] Transfer From ([facility] Jamal)on 05-14-2021 Transfer From ([facility] Jamal) From: [facility] Patient: MARANDA DAVIS [address] [place] [address] Birthdate: [birth year] Age: 51 Attending Physician: Joelle Correa MD Sex: Female Primary Care: Macario Cortez DO Admit Date: D/C date: Transfer Form (Phys Orders) Medical Information Disposition Home Health Care, Home Health Aide Problem List Medical Problems Fibromyalgia History of goiter HTN (hypertension) Lumbar degenerative disc disease Obese ANJU (obstructive sleep apnea) Overactive bladder Surgical Problems S/P lumbar fusion Status post total replacement of left hip Surgeries LEFT HIP REPLACEMENT Allergies Coded Allergies: WHEAT (12/14/14) Uncoded Allergies: DILADID (Severe, RASH 05/13/21) PT HAS INTRAFECAL DILADID PUMP. STATES SHE CANNOT TAKE IT IV BECAUSE IT CAUSES A RASH AND A HEADACHE. Code Status FULL CODE Patient In Isolation: No RESISTANT ORGANISM No Date of Influenza Vaccine 2013 Date of Pneumonia Vaccine --- Physician Orders Prescriptions/Discharge Meds Stop taking the following medications: Oxycodone HCl * (Roxicodone 5mg Tablet*) 5 MG TABLET 5 MILLIGRAM ORAL EVERY 6 HOURS NEEDED as needed for Pain Continue taking these medications: clonazePAM * (KlonoPIN 1mg Tablet*) 1 MG TABLET 1 MILLIGRAM ORAL HS Amitriptyline HCl * (Elavil *) 25 MG TABLET 25 MILLIGRAM ORAL AT BEDTIME Estradiol* (Estrace*) 2 MG TABLET 2 MILLIGRAM ORAL EVERY DAY Pregabalin * (Lyrica 100mg Capsule*) 100 MG CAPSULE 200 MILLIGRAM ORAL 3 TIMES DAILY traZODone HCL* (Desyryl*) 50 MG TABLET 50 MILLIGRAM ORAL AT BEDTIME Furosemide Tablet (Lasix Tablet) 40 MG TABLET 40 MILLIGRAM ORAL 2 TIMES DAILY Omeprazole * (PriLosec *) 40 MG CAPSULE. 40 MILLIGRAM ORAL Every Day @ 6AM DULoxetine HCl * (Cymbalta *) 60 MG CAPSULE. 60 MILLIGRAM ORAL 2 TIMES DAILY Oxybutynin Chloride * (Ditropan XL *) 5 MG TAB.ER.24 5 MILLIGRAM ORAL EVERY DAY Cholecalciferol (Vitamin D3) (Vitamin D3) 50 MCG (2,000 UNIT) CAPSULE 50 MICROGRAM ORAL EVERY DAY Biotin (Biotin) 5,000 MCG TAB.RAPDIS 5,000 MICROGRAM ORAL EVERY DAY Cinnamon Bark (Cinnamon) 500 MG CAPSULE 500 MILLIGRAM ORAL 2 TIMES DAILY Aspirin * (Ecotrin 81 MG *) 81 MG TABLET. 81 MILLIGRAM ORAL EVERY DAY Docusate Sodium * (Colace *) 100 MG CAPSULE 100 MILLIGRAM ORAL 2 TIMES DAILY Physical Therapy 5x/week Weight Bearing Status Full weight bearing Occupational Therapy 3x/week Speech Therapy No Wound Care MEPILEX DRESSING TO LEFT HIP DO NOT REMOVE Diet REGULAR Certify/Acknowledge Prognosis Good Rehab Potential Improve Certify/Acknowledge I certify that in-patient care is required at: [X ] Skilled level [ ] Intermediate level Expected length of stay: [X ] < 30 Days [ ] 31-180 Days [ ] >181 Days To the best of my knowledge, all information provided is a true and accurate reflection of the individuals condition. Electronically Signed eSign Date and Time Shavonne Pool RN 05/14/21 0939 Joelle Correa MD [facility] z OT Inpatient Evaluationon 05-14-2021 z OT Inpatient Evaluation [facility] Patient: MARANDA DAVIS [address] [place] [address] MR#: [id number] OT INPATIENT EVALUATION : 72 Inpatient OT HPI Date of Service 05/14/21 Time In: 1125 Time Out: 1143 Total Treatment Time (Mins) 18 Visit Reason LT HIP OA COVID - 19 SCREENING Surgery Type/Date s/p L LUI on 05.13.21 Referral Date 05/13/21 Tx Diagnosis: PAIN IN L LEG Insurance Name [facility] Course Pt is a right hand dominant 51 YR OLD F with a hx of OA was admitted and underwent above listed surgical procedure. OT has received a referral for eval and treat as indicated. RN cleared pt to be seen by OT . Pt in supine upon OT arrival and pt agreeable to OT eval this date. Past Medical/Social History Problem List Medical Problems Fibromyalgia History of goiter HTN (hypertension) Lumbar degenerative disc disease Obese ANJU (obstructive sleep apnea) Overactive bladder Surgical Problems S/P lumbar fusion Status post total replacement of left hip Living Arrangements Home Lives With Spouse, Family Steps to Enter House 2 Stairs Inside House 7 (7 plus 7) Railings Left Handrail Adaptive Equipment Single Point Cane, Rollator, Scooter ADL Equipment Elev. Toilet Seat w Arms, Long Handled Sponge, Long Shoe Horn, Account Solutions Analyst, Shower Chair, Sock Aid Bedroom Location 2nd Floor Bathroom Location 2nd Floor Shower Tub Comments Pt lives with spouse and son in a tri level home with 2 ELIO with L HR and 7 steps up to second fl and 7 steps down to lower level once entering the home with B HR;s pt bed/bath on second floor. pt has shower tub with no grab bars and pt has ETS with arms and hip kit long handled devices for ADLs. pt also has shower chair Tasks Prior to Admission Laundry, Cooking, Cleaning, Shopping, Driving Transportation Method Patient Drives, Spouse Drives Functional Level PLOF: modified ind with ADLS and IADLS and drives and used a scooter out in community sometimes and pt reports multiple falls this year. Objective Precautions Total Hip Precautions, L LE Touch Down Flat foot reciprocal gait Pain Scale 5 Pain Character Ache Pain Location Left Hip Equipment Drain, Peripheral IV, SCD Orientation Person, Place, Time, Situation Behavior Within Functional Limits Sensation Within Functional Limits Tone Within Functional Limits Hand Dominance Right Coordination Fine Motor Coordination Within Functional Limits Opposition Intact Proprioception Within Normal Limits ROM RUE ROM Within Normal Limits LUE ROM Within Normal Limits Strength RUE Strength Within Normal Limits LUE Strength Within Normal Limits Comments Bilateral upper extremities WFLs for participation in management of ADLs and functional mobility tasks. Outcome Measures Hari Score Hari Score Response Value Feeding Independent 10 Bathing Needs Help 0 Grooming Independent 5 Dressing Needs Help/Half unaided 5 Bowels Continent 10 Bladder Continent 10 Toilet Needs Some Help 5 ransfer(Bed to Chair and Back) Minor Help 10 obility (On Level Surfaces) Walks w/Help of 1 Person 10 tairs Needs Help 5 otal 70 Comments [30] % disability based on the Hari Index ADL Function ADL Function Upper Body Dressing Setup Lower Body Dressing Min Assist Upper Body Bathing Anticipated, Setup Lower Body Bathing Anticipated, Min Assist Toileting Contact Guard Assist Comments Patient instructed in lower body dressing/ADLs via modified techniques and with long handled adaptive equipment as noted above level of assist. Transfers Transfers Supine to Sit Modified Independent Sit to Stand Standby Assist Stand to Sit Standby Assist Sit to Supine Contact Guard Assist Bed to Chair Standby Assist Chair to Bed Standby Assist Toilet Standby Assist Comments Pt completed household func mobility with SBA with RW in her room from her bed to the bathroom to perform toileting tasks and back to bed and also SBA with RW to wash and dry her hands and face while standing at the sink. Static Sitting Balance Within Normal Limits Dynamic Sitting Balance Within Functional Limits Static Standing Balance Within Functional Limits Dynamic Standing Balance Impaired Treatment Additional Minutes of Tx Performed 15 Remained in Bed All Needs Within Reach Yes Assessment/Plan for Inpt OT DC Recommendations Home W/Home Health Care, Family Assistance Topic #1 Rehabilitation Techniques ROLE OF OT REVIEW OF POST OP PRECAUTIONS ADLS training functional mobility and funct transfer training AE review for ADLs Teaching Method: TEACHBACK Teaching Method: TEACHBACK Teaching Method: TEACHBACK Outcome: VERBALIZED/ADEQ TEACHBACK Comments Post Op precautions/issued packet with home going instructions and information regarding adaptive equipment and bathroom DME. Problems ADL Skills, Activity Tolerance, Function (more content not included)... Normal [facility] z PT Inpatient Progress Note on 05-14-2021 z PT Inpatient Progress Note [facility] Patient: MARANDA DAVIS [address] [place] [address] MR#: [id number] PT INPATIENT PROGRESS NOTE : 72 Service Date: 05/14/21 1732 Inpatient PT HPI Date of Service 05/14/21 Time In: 1020 Time Out: 1058 Total Treatment Time (Mins) 38 Room Number 612 Current Visit Patient is cleared for physical therapy by nursing. Patient is alert and cooperative. Seated in bedside chair upon arrival. C/o increased pain and fatigue. I feel so tired. Really would like to get back into bed . Agreeable to physical therapy session this am. Expressing desire to return home this pm. Training is provided to prepare patient for home-going. Patient asking questions concerning exercises and precautions in preparation for home-going. Working to improve endurance, transfers, gait, stair manipulation and safety awareness. Identified by verbal confirmation and identification bracelet. Surgery Type: L LUI Surgery Date: 05/13/21 Tx Diagnosis: UNSTEADINESS ON FEET Objective Pain Pain Scale 5 Pain Character Ache Pain Location Hip (left) Comments Patient c/o increased pain and fatigue. States she is really stiff. Patient is instructed in and performs exercises and stretches to improve stiffness, swelling and pain. Precautions Total Hip Precautions, Weight Bearing Status (LLE touchdown WB foot flat) Treatment Inpatient PT Transfers Sit to Supine Contact Guard Assist Sit to Stand Contact Guard Assist Stand to Sit Standby Assist Weight Bearing TDWB FF reciprocal gait (LLE) Comments Slow movements noted with training provided for improved technique for movement of legs into and out bed. Cues provided for squeezing of quadricep muscles to assist with transfer. Muscle belly tapping and manual assistance is required. Review of LUI precautions with explaination and demonstration noted. Gait Patient ambulated With Contact Guard Assist, With Standby Assist With Assistive Device Wheeled Walker For (Feet) 100 Comments Patient ambulates 100 feet x2 with wheeled walker and at least SBA. Very slow young with c/o stiffness, lower extremity pain and upper extremity soreness. Step-to gait pattern with stiff posture and difficulty maintaining touch-down and foot flat weight bearing precautions noted initially. Training is provided for gait and posture corrections and and improved safety awareness. Stairs Steps Up 3 Inch Steps 6 Steps Down 3 Inch Steps 6 Device Bilateral Handrail Pattern Non-Reciprocating Assistance Required With Contact Guard Assist, With Standby Assist Comments Initial instructions provided with good return demonstration noted. Exercises Bed Exercises Ankle Pumps, Quad Sets, Glute Sets, Heel Slides, Hip Abduction Seated Exercises Toe Raises, Long Arc Quads, Hip Abduction, Hip Adduction, Hamstring Curl Standing Exercises Weight Shifts Comments Bilateral lower extremity therex-12reps x1. Working to improve strength and active range of motion. ROM Comments Left hip AAROM is 0-60 degrees. Balance Exercises Sidestep, Retro Walking Balance Activities Patient with good balance with use of walker and at least SBA. Patient states she owns walker for home use. Treatment Remained in Bed All Needs Within Reach Yes Treatment Time-Minutes Therapeutic Exercise 15 Gait Training 15 Therapeutic Activities 8 Total Treatment Time (Minutes) 38 Assessment/Plan for Inpt PT Discharge Recommendations Home W/Home Health Care Topic #1 Exercises for HEP Education and training for proper transfer, stairs and gait technique balance safety awareness Precautions active range of motion bed mobility Teaching Method: TEACHBACK Teaching Method: DEMONSTATION Outcome: RETURN SKILL DEMO Problems Decreased Strength, Decreased Transfers, Decreased Ambulation, Decreased Balance, Decreased ROM, Difficulty with Stairs, Decreased Endurance, Pain Rehab Potential Good Treatment Tolerance Good Assessment Patient is progressing well. Participates in bed mobility, transfers, gait, balance, ROM and safety awareness. Preparing for discharge with all questions and concerns addressed. Safely transfer sup to sit: MOD I Safely transfer sit to stand: MOD I Safely Ambulate: MOD I (>/= 200' /s LOB, LLE TDWB) Patient will perform stairs: MOD I (>/= 1 flight steps /c HR) Pt. will increase strength for improved transfer/gait stability, as per protocol Pt. will have: improved balance, demo'd by gait goal above Pt. will tolerate dynamic dynamic functional activ., to increase endurance, >/= 30 minutes theract, therex, gait, NMR /s rest break Patient Stated Goal: Pt wanting to go home Goals discussed with: Patient Frequency of Therapy: BID (PRN) Duration: 1 WEEK Patient Status ACTIVE Treatment Performed Yes Comments Continued physical therapy is needed for improved transfers, gait, balance and saf (more content not included)... Normal [facility] CORONAVIRUSon 05-13-2021 SARS-CoV-2 (COVID-19) RNA BENTON+probe Ql (Unsp spec) Methodology: PCR Negative results do not preclude SARS-CoV-2 infection and should not be used as the sole basis for patient management decisions. Negative results must be combined with clinical observations, patient history, and epidemiological information. False-negative results may occur if the viruses are present at a level that is below the analytical sensitivity of the assay or if the virus has genomic mutations, insertions, deletions, or rearrangements or if performed very early in the course of illness. Results may be affected by the quality of the sample collected. Simplexa COVID-19 Direct is only for use under the Food and Drug Administration's Emergency Use Authorization. The Simplexa COVID-19 Direct Letter of Authorization, along with the authorized Fact Sheet for Healthcare Providers, the authorized Fact Sheet for Patients, and authorized labeling are available on the FDA website: https://www.fda.gov/Medi calDevices/Safety/ EmergencySituations/ucm1 28432.htm COVID-19 Negative for COVID-19 (SARS-CoV-2 RNA) Normal [facility] Comment on above: Order Comment: Resul ts called to [facility] on 05/13/21 1020 by BHAVANI. CBN: YES [place]: MAIN COVID Testing: PRE-OP/PROCEDURE SCREEN Comment: 05/13 AGE at Spec ELIZABETH 51 Report age at specimen ELIZABETH? Y First test: UNKNOWN Employed in Healthcare: NO Symptomatic as defined by CDC: NO Hospitalized for COVID-19? NO ICU: NO Resident in a Congregated Care Setting: NO Order Date: 05/13/21 : Not Performed By: #### M [id number] #### Test performed at: [place] [address] GLUCOSE METERon 05-13-2021 Glucose [Mass/Vol] 94 mg/dL Normal 70-99 [facility] Comment on above: Result Comment: Fast ing GLUCOSE reference range has been updated per (ADA) [place] [employer]'s recommendation. 01/03/2019 Performed By: #### L [id number] #### Test performed at: [place] [address] [employer] 05-13-2021 H & P [facility] Patient: MARANDA DAVIS [address] [place] [address] MR#: [id number] HISTORY and PHYSICAL : Service Date: 05/13/21 1642 History of Present Illness HPI A 51 years old female with PMH of multiple back surgeries in the past with pain pump( containing Diluaidid, baclofen and clonidine in her abdomen), DM 2 controlled with diet, OA, Lupus/Fibromyalgia, Osteoprorosis and Anemia who is S/P Left THR POD0(DOS 05/13/2021). EBL 350ml, 185 was returned. Internal medicine team was consuled for medical disease management. Pt was seen and examined in PACU. She complains of moderate post op left hip pain. Pt denied any chest pain, sob, palpitation, fever, chills, abdominal pain, nausea, vomiting, leg swelling. BP 114/70, HR 77, RR 15, T 36.3C. Family/Social History Social History Smoking Status FORMER SMOKER Packs/Day LESS THAN 1/2 Alcohol NO Drug Use NO Opioid Assessment Naive less than 30mme/day FEMALE Opioid Risk Tool Total/Score 0 MALE Opioid Risk Tool Total/Score 0 Risk Stratification LOW RISK (Score <=3) Allergies/Home Medications Allergies Coded Allergies: WHEAT (12/14/14) Uncoded Allergies: DILADID (Severe, RASH 05/13/21) PT HAS INTRAFECAL DILADID PUMP. STATES SHE CANNOT TAKE IT IV BECAUSE IT CAUSES A RASH AND A HEADACHE. Reconcile Medications Scheduled Medications Amitriptyline HCl * (Elavil *) 25 MG TABLET 25 MG PO QHS, Ref 0 (Reported) Entered as Reported by TANJA BENNETT on 12/08/18 1555 Last Taken: 05/12/21 Last Action: Reviewed on 05/13/21 104 by JITENDRA SIMS Biotin 5,000 MCG TAB.RAPDIS 5,000 MCG PO DAILY, Ref 0 (Reported) Entered as Reported by JITENDRA SIMS on 05/13/21 1045 Last Action: Reviewed on 05/13/21 1046 by JITENDRA SIMS Cholecalciferol (Vitamin D3) (Vitamin D3) 50 MCG (2,000 UNIT) CAPSULE 50 MCG PO DAILY, Ref 0 (Reported) Entered as Reported by JITENDRA SIMS on 05/13/21 1044 Last Action: Reviewed on 05/13/21 1046 by JITENDRA SIMS Cinnamon Bark (Cinnamon) 500 MG CAPSULE 500 MG PO BID, Ref 0 (Reported) Entered as Reported by JITENDRA SIMS on 05/13/21 1045 Last Action: Reviewed on 05/13/21 1046 by JITENDRA SIMS clonazePAM * (KlonoPIN 1mg Tablet*) 1 MG TABLET 1 MG PO HS, Ref 0 (Reported) Entered as Reported by REGIS PATEL on 12/14/14 1110 Last Action: Reviewed on 05/13/21 1046 by JITENDRA SIMS DULoxetine HCl * (Cymbalta *) 60 MG CAPSULE.DR 60 MG PO BID, Ref 0 (Reported) Entered as Reported by JITENDRA SIMS on 05/13/21 1042 Last Action: Continued on 05/13/21 1649 by KURTIS BAL Estradiol* (Estrace*) 2 MG TABLET 2 MG PO DAILY, Ref 0 (Reported) Entered as Reported by TANJA BENNETT on 12/08/18 1555 Last Action: Reviewed on 05/13/21 104 by JITENDRA SIMS Furosemide Tablet (Lasix Tablet) 40 MG TABLET 40 MG PO BID, Ref 0 (Reported) Entered as Reported by JITENDRA SIMS on 05/13/21 104 Last Action: Reviewed on 05/13/21 104 by JITENDRA SIMS Omeprazole * (PriLosec *) 40 MG CAPSULE.DR 40 MG PO DAILY@6AM, Ref 0 (Reported) Entered as Reported by JITENDRA SIMS on 05/13/21 104 Last Action: Reviewed on 05/13/211045 by JITENDRA SIMS Oxybutynin Chloride * (Ditropan XL *) 5 MG TAB.ER.24 5 MG PO DAILY, Ref 0 (Reported) Entered as Reported by JITENDRA SIMS on 05/13/21 1043 Last Action: Reviewed on 05/13/211045 by JITENDRA SIMS Pregabalin * (Lyrica 100mg Capsule*) 100 MG CAPSULE 200 MG PO TID, Ref 0 (Reported) Entered as Reported by KOSTA BRAR on 02/15/19 0916 Last Action: Reviewed on 05/13/21 104 by JITENDRA SIMS traZODone HCL* (Desyryl*) 50 MG TABLET 50 MG PO QHS, Ref 0 (Reported) Entered as Reported by KOSTA BRAR on 02/15/19 0917 Last Action: Reviewed on 05/13/21 104 by JITENDRA SIMS Scheduled PRN Medications Oxycodone HCl * (Roxicodone 5mg Tablet*) 5 MG TABLET 5 MG PO Q6PRN PRN Pain, Ref 0 ( Reported) Entered as Reported by JITENDRA SIMS on 05/13/21 1044 Last Action: Reviewed on 05/13/21 104 by JITENDRA SIMS Discontinued Medications Baclofen * (Lioresal *) 10 MG TABLET 250 MCG IM/IV DAILY PAIN PUMP, Ref 0 (Reported) Discontinued reason: Completed Regimen Last Action: Discontinued on 05/13/21 1035 by JITENDRA SIMS Cyclobenzaprine HCl * (Flexeril *) 10 MG TABLET 10 MG PO Q8PRN PRN Spasms 10 Days #30 TABLET, Ref 2 Discontinued reason: Completed Regimen Last Action: Discontinued on 05/13/21 1035 by JITENDRA SIMS Docusate Sodium* (Colace*) 100 MG CAPSULE 100 MG PO BID, Ref 0 (Reported) take while taking pain medications Discontinued reason: Med Entered in Error Last Action: Discontinued on 05/13/21 1041 by JITENDRA SIMS Morphine Sulfate Inj * (Morphine Inj 2mg/ml*) 2 MG/1 ML SYRINGE 25 MG IV DAILY PAIN PUMP , Ref 0 (Reported) Discontinued reason: DC'ed by Physician Last Action: Discontinued on 05/13/21 103 (more content not included)... Normal [facility] Internal Medicine Consultati onon 05-13-2021 Internal Medicine Consultation [facility] Patient: MARANDA DAVIS [address] [place] [address] MR#: [id number] CONSULTATION - Internal Medicine : 72 Service Date: 05/13/212116 History of Present Illness HPI A 51 years old female with PMH of multiple back surgeries in the past with pain pump( containing Diluaidid, baclofen and clonidine in her abdomen), DM 2 controlled with diet, OA, Lupus/Fibromyalgia, Osteoprorosis and Anemia who is S/P Left THR POD0(DOS 05/13/2021). EBL 350ml, 185 was returned. Internal medicine team was consuled for medical disease management. Pt was seen and examined in PACU. She complains of moderate post op left hip pain. Pt denied any chest pain, sob, palpitation, fever, chills, abdominal pain, nausea, vomiting, leg swelling. BP 114/70, HR 77, RR 15, T 36.3C. Medical/Surgical History Past Medical History Transfusion Status CONSERVATION Transfusion Reaction NOT APPLICABLE Family/Social History Social History Packs/Day LESS THAN 1/2 Alcohol NO Drug Use NO Allergies/Home Medications Allergies Coded Allergies: WHEAT (12/14/14) Uncoded Allergies: DILADID (Severe, RASH 05/13/21) PT HAS INTRAFECAL DILADID PUMP. STATES SHE CANNOT TAKE IT IV BECAUSE IT CAUSES A RASH AND A HEADACHE. Reconcile Medications Scheduled Medications Amitriptyline HCl * (Elavil *) 25 MG TABLET 25 MG PO QHS, Ref 0 (Reported) Entered as Reported by TANJA BENNETT on 12/08/18 1555 Last Taken: 05/12/21 Last Action: Reviewed on 05/13/21 1046 by JITENDRA SIMS Biotin 5,000 MCG TAB.RAPDIS 5,000 MCG PO DAILY, Ref 0 (Reported) Entered as Reported by JITENDRA SIMS on 05/13/21 1045 Last Action: Reviewed on 05/13/21 1046 by JITENDRA SIMS Cholecalciferol (Vitamin D3) (Vitamin D3) 50 MCG (2,000 UNIT) CAPSULE 50 MCG PO DAILY, Ref 0 (Reported) Entered as Reported by JITENDRA SIMS on 05/13/21 1044 Last Action: Reviewed on 05/13/21 1046 by JITNEDRA SIMS Cinnamon Bark (Cinnamon) 500 MG CAPSULE 500 MG PO BID, Ref 0 (Reported) Entered as Reported by JITENDRA SIMS on 05/13/21 1045 Last Action: Reviewed on 05/13/21 1046 by JITENDRA SIMS clonazePAM * (KlonoPIN 1mg Tablet*) 1 MG TABLET 1 MG PO HS, Ref 0 (Reported) Entered as Reported by REGIS PATEL on 12/14/14 1110 Last Action: Reviewed on 05/13/21 1046 by JITENDRA SIMS DULoxetine HCl * (Cymbalta *) 60 MG CAPSULE.DR 60 MG PO BID, Ref 0 (Reported) Entered as Reported by JITENDRA SIMS on 05/13/21 1042 Last Action: Continued on 05/13/21 1649 by KURTIS BAL Estradiol* (Estrace*) 2 MG TABLET 2 MG PO DAILY, Ref 0 (Reported) Entered as Reported by TANJA BENNETT on 12/08/18 1555 Last Action: Reviewed on 05/13/21 104 by JITENDRA SIMS Furosemide Tablet (Lasix Tablet) 40 MG TABLET 40 MG PO BID, Ref 0 (Reported) Entered as Reported by JITENDRA SIMS on 05/13/21 1042 Last Action: Reviewed on 05/13/21 104 by JITENDRA SIMS Omeprazole * (PriLosec *) 40 MG CAPSULE.DR 40 MG PO DAILY@6AM, Ref 0 (Reported) Entered as Reported by JITENDRA SIMS on 05/13/21 1042 Last Action: Reviewed on 05/13/21 104 by JITENDRA SIMS Oxybutynin Chloride * (Ditropan XL *) 5 MG TAB.ER.24 5 MG PO DAILY, Ref 0 (Reported) Entered as Reported by JITENDRA SIMS on 05/13/21 1043 Last Action: Reviewed on 05/13/21 104 by JITENDRA SIMS Pregabalin * (Lyrica 100mg Capsule*) 100 MG CAPSULE 200 MG PO TID, Ref 0 (Reported) Entered as Reported by KOSTA BRAR on 02/15/19 0916 Last Action: Reviewed on 05/13/21 104 by JITENDRA SIMS traZODone HCL* (Desyryl*) 50 MG TABLET 50 MG PO QHS, Ref 0 (Reported) Entered as Reported by KOSTA BRAR on 02/15/19 0917 Last Action: Reviewed on 05/13/21 104 by JITENDRA SIMS Scheduled PRN Medications Oxycodone HCl * (Roxicodone 5mg Tablet*) 5 MG TABLET 5 MG PO Q6PRN PRN Pain, Ref 0 ( Reported) Entered as Reported by JITENDRA SIMS on 05/13/21 1044 Last Action: Reviewed on 05/13/21 104 by JITENDRA SIMS Discontinued Medications Baclofen * (Lioresal *) 10 MG TABLET 250 MCG IM/IV DAILY PAIN PUMP, Ref 0 (Reported) Discontinued reason: Completed Regimen Last Action: Discontinued on 05/13/21 1035 by JITENDRA SIMS Cyclobenzaprine HCl * (Flexeril *) 10 MG TABLET 10 MG PO Q8PRN PRN Spasms 10 Days #30 TABLET, Ref 2 Discontinued reason: Completed Regimen Last Action: Discontinued on 05/13/21 1035 by JITENDRA SIMS Docusate Sodium* (Colace*) 100 MG CAPSULE 100 MG PO BID, Ref 0 (Reported) take while taking pain medications Discontinued reason: Med Entered in Error Last Action: Discontinued on 05/13/21 1041 by JITENDRA SIMS Morphine Sulfate Inj * (Morphine Inj 2mg/ml*) 2 MG/1 ML SYRINGE 25 MG IV DAILY PAIN PUMP , Ref 0 (Reported) Discontinued reason: DC'ed by Physician Last Action: Discontinued on 05/13/21 1035 by JITENDRA SIMS Oxycodone HCl * (Roxicodone 5mg Tablet*) 5 M (more content not included)... Normal [facility] OPERATIVE REPORTon OPERATIVE REPORT NAME: MARANDA DAVIS MR#: [id number] SURGEON: Joelle Correa MD DATE OF SURGERY: 05/13/2021 OPERATIVE REPORT PREOPERATIVE DIAGNOSIS: Osteoarthritis, left hip. POSTOPERATIVE DIAGNOSIS: Osteoarthritis, left hip. OPERATION PERFORMED: Left total hip replacement. ASSISTANTS: 1. Rakesh Giron PA-C. 2. TIMBO Mooney. ANESTHESIA: General. ABSTRACT: Mrs. Davis is a 51-year-old woman with severe osteoarthritis of her hip. Because of her age, activity level, bone quality and bone size, we elected to use total hip replacement consisting of the Medacta dual-mobility liner and an acetabular cup with an origin hip stem. The procedure was performed through a posterior approach. We preserved the posterior capsule for a later repair. We then dislocated the hip, we resected our femoral neck, and exposed the acetabulum. We reamed this to 49 mm in diameter and then impacted in our 50 mm dual-mobility acetabular shell. We turned our attention to the femur and broached the femur sequentially to accept the origin hip stem, size 10 stem was used. We performed a trial reduction and found that a size 0, 28 mm femoral head restored appropriate limb length. The size 10 stem with a standard offset was appropriate. We then impacted our permanent components into place and gained excellent fixation. The final reduction was performed after copious irrigation. We closed the posterior capsule, closed the wound in typical fashion. Zhou were used on the skin. She tolerated the procedure well and returned to recovery room in satisfactory condition. JOELLE CORREA MD /[facility]/[id number] E/S: Joelle Correa MD 05/27/21 1217 Electronically Signed [facility] PT NAME: MARANDA DAVIS MR#: [id number] [address] [place], [place] [id number] ACCT: [id number] : 72 OPERATIVE REPORT Normal [facility] PELVIS 1 OR 2 VIEWSon 2020 PELVIS 1 OR 2 VIEWS STUDY: PELVIS 1 OR 2 VIEWS; ; 05/13/2021 2:30 pm; 05/13/2021 4:23 pm INDICATION: LEFT TOTAL HIP REPLACEMENT; S/P LEFT THR. COMPARISON: None. ACCESSION NUMBER(S): [id number]; [id number] ORDERING CLINICIAN: Joelle Cisneros FINDINGS: S/p left total hip replacement. The orthopedic hardware are intact in anatomic alignment. No acute fracture. Soft tissue swelling soft tissue gas, related to the postsurgical changes. IMPRESSION: Status post left total hip replacement in anatomic alignment. No acute fracture. Normal [facility] PT Therapy Recommendationson 05-13-2021 PT Therapy Recommendations [facility] Patient: MARANDA DAVIS [address] [place], [place] [id number] MR#: [id number] PT THERAPY RECOMMENDATIONS : 72 Service Date: 05/13/211921 Therapy Recommendations Therapy Recommendations Recommendations Physical therapy evaluation completed. Will follow per acute PT plan of care BID, PRN. Rec D/C home /c family assist and HHPT. Renny Teixeira, PT, DPT Available via Halo Electronically Signed eSign Date and Time Renny Teixeira PT 05/13/21 1923 Normal [facility] Primary Residenton Primary Resident [facility] Pt Name: MARANDA DAVIS MR#: [id number] [address] ACCT: [id number] [place] [address] : 72 Service Date: 05/13/21 165 Primary Resident/Call Primary Resident: [id number] Ples[place] After Hours Call: [phone] Red Team Electronically Signed eSign Date and Time Plesca,Sascha Resident 05/13/21 165 Normal [facility] SURGon 05-13-2021 SURG Normal [facility] Comment on above: Result Comment: RUN DATE: 05/16/21 [facility] LAB *LIVE* PAGE 1RUN TIME: 1458 Specimen InquiryRUN USER: [employer] Name: MARANDA DAVIS : 72 Sex:F Attend Dr: Joelle Correa [facility]#: [id number] Unit#: [id number] Status: DIS Michel Location: Jazmin [id number] Received: 05/14/21 Status: AILEEN Carrillo#: [id number]#: [id number] Collected: 05/13/21-1400 [facility] Dr: Joelle Correa MDTISSUES: A. LEFT HIP BONE & TISSUE MICROSCOPIC EXAM: Two H&E-stained slides including sections of decalcified tissue are examined. DIAGNOSIS: BONE AND TISSUE FROM LEFT HIP, TOTAL HIP REPLACEMENT: - DEGENERATIVE JOINT DISEASE Signed Signature on File SANDRA SALDAÑA 05/16/21 1458 [facility] Name: MARANDA DAVIS [facility] Hosp Num: [id number] [employer] Age / Sex: 51/F [facility] Physician: Joelle Correa MD [address] [place] [address] Location: SPINE/ORTHO UNIT END OF REPORT Performed By: #### L 300.14763 #### Test performed at: [place] [address] TSon 05-13-2021 ABO and Rh group Nom (Bld) Blood group O Rh(D) positive Normal [facility] Comment on above: Order Comment: CBN: NO [place]: MAIN Transfusion Status: CONSERVATION Blood Bank service requested: TYPE AND SCREEN Performed By: #### B 100.0200 #### Test performed at: [place] [address] z PT Inpatient Evaluationon 05-13-2021 z PT Inpatient Evaluation [facility] Patient: MARANDA DAVIS [address] [place] [address] MR#: [id number] PT INPATIENT EVALUATION : 72 Service Date: 05/13/211925 Inpatient PT HPI Date of Service 05/13/21 Time In: 1845 Time Out: 1905 Total Treatment Time (Mins) 20 Room Number 612 Visit Reason LT HIP OA COVID - 19 SCREENING Surgery Type: L LUI Surgery Date: 05/13/21 Referral Date 05/13/21 Tx Diagnosis: UNSTEADINESS ON FEET Insurance Name [facility] Pt is a 51 year old female admitted for sx listed above. Orders: LLE touchdown WB foot flat recipricating gait, ad epifanio /c assist, encourage ambulation/calf/ankle exercises, hip precautions. Pt sitting upright in bed when PT entered, cooperative and participatory, slightly lethargic, but responding well to education and cues throughout. Past Medical/Social History Living Arrangements Home Lives With Family Mobility Aids Single point cane, Wheeled walker, Scooter ADL Equipment See OT evaluation Steps to Enter House 2 Stairs Inside House 7+7 Railings Single Handrail Functional Level Pt reporting living in home setup above, states has support as needed. Pt reporting ambulating freely /s device in home, occasional use of cane for support, reports a few falls when leg gives out. Pt reporting MOD I for ADLs, assist for IADLs as needed, has spouse as needed for assist. States upper level setup. 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 Objective Pain Pain Scale 5 Pain Character Increased /c movement Pain Location L hip Comment Pt reports pain as above Precautions Total hip precautions, LLE touchdown WB foot flat, Obese Equipment IV line, O2, SCD, hip ABD pillow Static Standing Balance Within Functional Limits Dynamic Standing Balance Impaired, Fair Comment Pt needing SBA/CGA /c use of wheeled walker throughout session Orientation Person, Place, Situation, Time Behavior Cooperative, Appropriate to queries Sensation Denies numbness/tingling Tone Impaired (LLE s/p sx) Endurance Fair Posture Within Functional Limits 5'10 , 230# Wound/Skin No drainage noted on hip dressing Fine Motor Coordination Within Functional Limits ROM RUE ROM: SEE OT EVAL LUE ROM: SEE OT EVAL RLE ROM: WFL LLE ROM: 75% of full AROM Comment Pt noted to have near full AROM of L ankle/knee, hip appears fairly limited due to pain and sx precautions. Strength RUE Strength: SEE OT EVALUATION LUE Strength: SEE OT EVALUATION RLE Strength: WFL LLE Strength: 3-/5 Outcome Measures AM-PAC Inpatient Mobility AM-PAC Inpatient Mobility Response Value Turn Back/Side While Flat WO Bedrails A Little 3 Move From Lying to Side of Bed WO Bedrails A Little 3 Move To/From Bed to Chair A Little 3 Arms A Little 3 alk in Hospital Room A Little 3 Climb 3-5 Steps W Railing A Lot 2 Total 17 Mobility Transfers Supine to Sit SBA Supine to Sit CGA Sit to Stand SBA/CGA Stand to Sit SBA/CGA Weight Bearing Touchdown Weight Bearing foot flat recipricating gait (LLE) Comments Pt willing to participate, but novel to sx and needing increased cues throughout session. Cues throughout for form, /c good return demo. Minimal true hands on assist throughout but cues for hand placement, sequencing, form, breathing, and precautions follow. Slightly increased time needs, needing CGA for return of sx LE to supine, but close to succeeding / s hands on assist. Gait Patient ambulated SBA/CGA With Assistive Device Wheeled Walker For (Feet) 5' Comments Pt needing minimal hands on assist for mobility this date. Needing occasional stabilization and cues throughout for sequencing, and appropriate distance from walker for gait. Performing gait /s LOB or major instability. Needing cues for upright posture and gaze, tends to forward flex at hips. Pt appears to be focused on maintaining TDWB on LLE throughout session, slightly limited by pain at this time. Needing increased focus on sequencing, good return demo. Treatment Additional Minutes of Tx Performed 10 Remained in Bed All Needs Within Reach Yes Comments Issued Home exercise program/Precautions packet for THR, reviewed /c pt. Supine therex: AP,QS,GS x2 B/L LE for return demo. Increased time for education of plan of care and progression of therapy. Increased education about weight bearing status, D/C rec, and safety. Past Medical/Social History Problem List Medical Problems Fibromyalgia History of goiter HTN (hypertension) Lumbar degenerative disc disease Obese ANJU (obstructive sleep apnea) Overactive bladder Surgical Problems S/P lumbar fusion Status post total replacement of left hip Objective Precautions Total Hip Precautions, Weight Bearing Status (LLE touchdown WB foot flat) Mobility Transfers Weight Bearing TDWB FF reciprocal gait (LLE) Assessment/Plan for Inpt PT Discharge Recommendations Home W/Home Healt (more content not included)... Normal [facility] PELVIS 1 OR 2 VIEWSon 2020 PELVIS 1 OR 2 VIEWS STUDY: PELVIS 1 OR 2 VIEWS; ; 05/13/2021 2:30 pm; 05/13/2021 4:23 pm INDICATION: LEFT TOTAL HIP REPLACEMENT; S/P LEFT THR. COMPARISON: None. ACCESSION NUMBER(S): [id number]; [id number] ORDERING CLINICIAN: Joelle Cisneros FINDINGS: S/p left total hip replacement. The orthopedic hardware are intact in anatomic alignment. No acute fracture. Soft tissue swelling soft tissue gas, related to the postsurgical changes. IMPRESSION: Status post left total hip replacement in anatomic alignment. No acute fracture. Normal [facility] URINE CULTUREon 05-02-2021 Bacteria identified Cx Nom (U) SPECIMEN CONTAMINATED WITH NORMAL SKIN THANH NO URINARY PATHOGENS ISOLATED SUGGEST REPEAT IF CLINICALLY INDICATED Normal [facility] Comment on above: Performed By: #### M 100.25010 #### Test performed at: [address] [address] CBC W/DIFFon 04-30-2021 BASO ABS 0.0 K/uL Normal 0.0-0.2 [facility] Comment on above: Performed By: #### L 200.65149 #### Test performed at: [address] [address] Basophils/100 WBC (Bld) 0.5 % Normal [facility] Comment on above: Performed By: #### L 200.24429 #### Test performed at: [address] [address] EOS ABS 0.2 K/uL Normal 0.0-0.5 [facility] Comment on above: Performed By: #### L 200.83797 #### Test performed at: [address], [place] [address] Eosinophils/100 WBC (Bld) 2.6 % Normal [facility] Comment on above: Performed By: #### L 200.33099 #### Test performed at: [address] [address] Erythrocyte distribution width (RBC) [Ratio] 13.6 % Normal 11.5-14.5 [facility] Comment on above: Performed By: #### L 200.56197 #### Test performed at: [address] [address] Hematocrit (Bld) [Volume fraction] 36.7 % Normal 36.0-48.0 [facility] Comment on above: Performed By: #### L 200.92269 #### Test performed at: [address] [address] Hemoglobin (Bld) [Mass/Vol] 11.5 g/dL Low 12.0-15.0 [facility] Comment on above: Performed By: #### L 200.32002 #### Test performed at: [place] [id number] IG % 0.2 % Normal [facility] Comment on above: Performed By: #### L 200.77864 #### Test performed at: [place] [address] IG ABS 0.01 K/uL Normal 0-0.05 [facility] Comment on above: Performed By: #### L 200.85012 #### Test performed at: [address] [address] Lymphocytes (Bld) [#/Vol] 2.6 10*3/uL Normal 1.2-3.5 [facility] Comment on above: Performed By: #### L 200.40596 #### Test performed at: [address] [address] Lymphocytes/100 WBC (Bld) 45.3 % Normal [facility] Comment on above: Performed By: #### L 200.16479 #### Test performed at: [address] [address] MCH (RBC) [Entitic mass] 28.6 pg Normal 25.4-34.6 [facility] Comment on above: Performed By: #### L 200.90701 #### Test performed at: [address] [address] MCHC (RBC) [Mass/Vol] 31.3 g/dL Low 31.5-36.5 [facility] Comment on above: Performed By: #### L 200.70589 #### Test performed at: [address] [address] MCV (RBC) [Entitic vol] 91.3 fL Normal 79.0-98.0 [facility] Comment on above: Performed By: #### L 200.68859 #### Test performed at: [address] [address] MONO ABS 0.6 K/uL Normal 0.0-1.0 [facility] Comment on above: Performed By: #### L 200.92927 #### Test performed at: [address] [address] Monocytes/100 WBC (Bld) 10.8 % Normal [facility] Comment on above: Performed By: #### L 200.59053 #### Test performed at: [address] [address] NEUTROPHIL ABS 2.3 K/uL Normal 1.4-6.6 [facility] Comment on above: Performed By: #### L 200.80128 #### Test performed at: [address] [address] Neutrophils/100 WBC (Bld) 40.6 % Normal [facility] Comment on above: Performed By: #### L 200.33503 #### Test performed at: [address] [address] NRBC # 0.000 K/uL Normal 0-0.012 [facility] Comment on above: Performed By: #### L 200.35682 #### Test performed at: [address] [address] NRBC % 0.0 /100 WBC Normal 0-0.2 [facility] Comment on above: Performed By: #### L 200.54266 #### Test performed at: [address] [address] Platelet mean volume (Bld) [Entitic vol] 9.3 fL Normal 8.7-12.4 [facility] Comment on above: Performed By: #### L 200.84517 #### Test performed at: [address] [address] Platelets (Bld) [#/Vol] 303 10*3/uL Normal 140-440 [facility] Comment on above: Performed By: #### L 200.37758 #### Test performed at: [address] [address] RBC (Bld) [#/Vol] 4.02 10*6/uL Normal 3.5-5.5 [facility] Comment on above: Performed By: #### L 200.88913 #### Test performed at: [address] [address] WBC (Bld) [#/Vol] 5.7 10*3/uL Normal 3.9-11.0 [facility] Comment on above: Performed By: #### L 200.81834 #### Test performed at: [place] [id number] IRON PROF W/FERon 04-30-2021 FERR 12.1 ng/mL Normal 8-252 [facility] Comment on above: Performed By: #### L 500.94267 #### Test performed at: [place] [address] Iron [Mass/Vol] 70 ug/dL Normal 50-170 [facility] Comment on above: Performed By: #### L 500.97858 #### Test performed at: [place] [address] IRON SAT 20 % Low 25-35 [facility] Comment on above: Performed By: #### L 500.66092 #### Test performed at: [place] [address] TIBC 347 ug/dL Normal 250-450 [facility] Comment on above: Performed By: #### L 500.97412 #### Test performed at: [place] [address] PROTIMEon 04-30-2021 INR Coag (PPP) [Relative time] 0.97 {INR} Normal 0.00-1.20 [facility] Comment on above: Order Comment: List patient's anticoagulants for PT: NONE SPECIFIED Result Comment: Aldair mmended therapeutic range is an INR of 2.0-3.0 except for prevention of recurrent acute [place] and mechanical prosthetic heart valve where an INR of 2.5-3.5 is recommended. Performed By: #### L 300.92572 #### Test performed at: [place] [address] PT SEC 10.4 seconds Normal 9.0-12.5 [facility] Comment on above: Order Comment: List patient's anticoagulants for PT: NONE SPECIFIED Performed By: #### L 300.54155 #### Test performed at: [address] [place], [place] [address] UA COMPLETEon 04-30-2021 Appearance (U) CLOUDY Normal CLEAR [facility] Comment on above: Performed By: #### L 600.31006 #### Test performed at: [address] [address] BACTERIA Large Critically abnormal NONE OBSERV [facility] Comment on above: Performed By: #### L 600.72563 #### Test performed at: [address] [address] Bilirubin Ql (U) Negative Normal NEGATIVE [facility] Comment on above: Performed By: #### L 600.12676 #### Test performed at: [address] [address] CA OXALATE CRY Trace Normal [facility] Comment on above: Performed By: #### L 600.57764 #### Test performed at: [address] [address] Color (U) TAISHA Normal YELLOW [facility] Comment on above: Performed By: #### L 600.72891 #### Test performed at: [place] [address] EPITH CELLS 11-15 Critically abnormal 0-10 [facility] Comment on above: Performed By: #### L 600.40568 #### Test performed at: [address] [address] Glucose Ql (U) Negative Normal NEGATIVE [facility] Comment on above: Performed By: #### L 600.87895 #### Test performed at: [address] [address] Hemoglobin Ql (U) Negative Normal NEGATIVE [facility] Comment on above: Performed By: #### L 600.75942 #### Test performed at: [place] [id number] KETONE Negative Normal NEGATIVE [facility] Comment on above: Performed By: #### L 600.88703 #### Test performed at: [place] [address] LEUK ESTERASE Negative Normal NEGATIVE [facility] Comment on above: Performed By: #### L 600.12628 #### Test performed at: [place] [address] Mucus Ql (Urine sed) Moderate Normal [facility] Comment on above: Performed By: #### L 600.24986 #### Test performed at: [place] [address] Nitrite Ql (U) Negative Normal NEGATIVE [facility] Comment on above: Performed By: #### L 600.59381 #### Test performed at: [place] [address] Protein Ql (U) 30 mg/dL Critically abnormal NEGATIVE [facility] Comment on above: Performed By: #### L 600.13947 #### Test performed at: [place] [address] RBC 6-10 Critically abnormal 0-3 [facility] Comment on above: Performed By: #### L 600.90466 #### Test performed at: [place] [address] SPEC GRAV 1.024 Normal 1.005-1.030 [facility] Comment on above: Performed By: #### L 600.08178 #### Test performed at: [place] [address] UA ASC ACID Negative Normal [facility] Comment on above: Performed By: #### L 600.57535 #### Test performed at: [place] [address] UA PH 5.0 Normal 5.0-8.0 [facility] Comment on above: Performed By: #### L 600.79063 #### Test performed at: [facility] [address] [place] [address] UROBIL NORMAL Normal NORMAL [facility] Comment on above: Performed By: #### L 600.36861 #### Test performed at: [facility] [address] [place] [address] WBC 21-50 Critically abnormal 0-5 [facility] Comment on above: Performed By: #### L 600.76729 #### Test performed at: [place] [address] [place] [address] MRI LUMBAR SPINE W WO CONTRA STOrdered By: Kvng Katz on 01-24-2021 Variation in the num armani of presacral spinal vertebra with 25 rather than the typical 24. Lowest lumbar-type vertebra is referred to as L6 and the lowest disc L6-S1. Extensive lumbar spinal postoperative changes from the L2-3 through the L6-S1 levels. Collection posterior to the thecal sac between the L4-5 and L6-S1 disc level. Differential as described above. Areas of right thecal sac outpouching at the L5-6 and L6-S1 disc levels considered postoperative. Left paracentral, subarticular, and medial foraminal endplate spur contacting the left S1 nerve root; possibly accounting for the patient's left lower extremity symptoms. No significant canal stenosis. Posterior lower paraspinal muscle atrophy and likely denervation signal changes. Findings are discussed with Dr. Kvng Katz at 12:08 PM on 01/24/2021. [employer] Phone: MRI lumbar spine wit hout and with contrast HISTORY: Back pain radiating to both hips and left leg. Subjective left leg weakness. COMPARISON: No prior lumbar MRI exams available for correlation. Attempts were made to obtain prior MRIs but none were available. 09/19/2018 CT lumbar spine report from [facility]. TECHNIQUE: Sagittal T1, T2, and inversion recovery. Axial and coronal T2. Sagittal and axial T1 with fat suppression after the IV administration of 20 mL of gadolinium (ProHance). FINDINGS: There is a variation in the number of presacral spinal vertebra with 25 rather than the typical 24 confirmed on a sagittal whole spine T1 localizer. By convention the 12th vertebrae after the first 7 cervical, whether it is rib-bearing or not, is referred to as T12. The 24th overall vertebra is referred to as L5 and the 25th referred to as L6 on this exam. Vertebral levels are annotated on the sagittal T2-weighted images of the exam. Disc level enumeration on this MRI is one level greater than on the previous CT report. Conus medullaris is included on the very edge of the sagittal scan plane terminating just below the L1-2 disc level. Extensive lumbar surgical changes with right pedicle screws at the L4, L5, L6 and S1 levels. Left pedicle screws at L4, L5, and S1. Suspect disc implants at L6-S1, L4-5, L3-4 and L2-3. 4.7 x 1.6 x 3.1 cm well-defined collection posterior to the thecal sac at the right parasagittal L4-5 through L6-S1 disc level. This has slightly higher than cerebrospinal fluid signal on the T1-weighted images. This may relate to increased protein content. It has very minimal marginal enhancement. Differential includes postoperative seroma, pseudomeningocele with a thin communication or less likely abscess unless there are clinical signs of infection. This does not cause any mass effect on the thecal sac. Subtle lumbar vertebral levoscoliosis. Vertebral body heights maintained. T12-L1 disc level on the sagittal images unremarkable. No sign of canal or foraminal narrowing. L1-2 (L1): Minimal disc space narrowing without significant desiccation. Subtle posterior disc bulging and endplate spurring causing minimal mass effect on the anterior thecal sac. No significant canal or foraminal stenosis. L2-3 (L2): Severe disc space narrowing and probable disc space surgical implant. Subtle retrolisthesis of L2 relative to 3 due to the disc space height loss. Moderate lateral syndesmophyte formation on both sides. Mild mass effect on the anterior thecal sac due to posterior endplate spurring. No significant canal stenosis. Negligible left foraminal narrowing due to disc space height loss and endplate spurring. L3-4 (L3): Severe disc space narrowing and probable disc space surgical implant. Subtle posterior endplate spurring. No significant mass effect on the anterior thecal sac, or canal stenosis. Very mild right foraminal narrowing predominantly due to disc space height loss. Negligible foraminal narrowing on the left. L4-5 (L4): Mild disc space narrowing and probable disc space surgical implant. Posterior disc margin unremarkable without canal stenosis. No significant foraminal stenosis within the limitations of susceptibility artifact from the pedicle screws. L5-L6 (L5): Severe disc space narrowing, likely due to bony fusion. Subtle bulging of the posterior disc margin with mild enhancement likely representing postoperative granulation tissue. No significant mass effect on the thecal sac or canal stenosis. 16 x 8.7 x 14 mm cerebrospinal fluid signal area to the right of the thecal sac likely representing postoperative focal dilatation of the sac/nerve root junction. Minimal dilatation of the left nerve root sleeve. No significant foraminal narrowing within the limitations of the artifact from pedicle screw fixation. L6-S1 (L6): Severe disc space narrowing. Suspect disc level implant. Mild posterior endplate spurring not causing significant mass effect on the thecal sac as there is epidural lipomatosis between the posterior disc margin and anterior thecal sac (although mild canal stenosis described on the previous CT report). 11 x 8.9 x 11 mm cerebrospinal fluid signal area to the right of the thecal sac likely representing postoperative focal dilatation of the sac/nerve root junction. Minimal dilatation of the left nerve sleeve. L6-S1 left paracentral, subarticular and medial foraminal disc level extradural defect having similar signal to the adjacent bony structures on the T1 and T2-weighted images suspicious for a prominent spur. This is immediately below and medial to the exiting left L6 nerve root, not appearing to displace it. It is lateral to the S1 nerve root within the spinal canal after the root exits the thecal sac appearing to contact the nerve root and mildly displace it posterior medially. Medial left foraminal-lateral recess stenosis accentuated by facet arthrosis is suspected, rather than true foraminal stenosis. Left bony foraminal stenosis is described as moderate on the previous CT report (more content not included)... [employer] Work Phone: Jonatan, po Incoming Radiant Results From [facility] - 01/24/2021 12:58 PM EDT MRI lumbar spine without and with contrast HISTORY: Back pain radiating to both hips and left leg. Subjective left leg weakness. COMPARISON: No prior lumbar MRI exams available for correlation. Attempts were made to obtain prior MRIs but none were available. 09/19/2018 CT lumbar spine report from [facility]. TECHNIQUE: Sagittal T1, T2, and inversion recovery. Axial and coronal T2. Sagittal and axial T1 with fat suppression after the IV administration of 20 mL of gadolinium (ProHance). FINDINGS: There is a variation in the number of presacral spinal vertebra with 25 rather than the typical 24 confirmed on a sagittal whole spine T1 localizer. By convention the 12th vertebrae after the first 7 cervical, whether it is rib-bearing or not, is referred to as T12. The 24th overall vertebra is referred to as L5 and the 25th referred to as L6 on this exam. Vertebral levels are annotated on the sagittal T2-weighted images of the exam. Disc level enumeration on this MRI is one level greater than on the previous CT report. Conus medullaris is included on the very edge of the sagittal scan plane terminating just below the L1-2 disc level. Extensive lumbar surgical changes with right pedicle screws at the L4, L5, L6 and S1 levels. Left pedicle screws at L4, L5, and S1. Suspect disc implants at L6-S1, L4-5, L3-4 and L2-3. 4.7 x 1.6 x 3.1 cm well-defined collection posterior to the thecal sac at the right parasagittal L4-5 through L6-S1 disc level. This has slightly higher than cerebrospinal fluid signal on the T1-weighted images. This may relate to increased protein content. It has very minimal marginal enhancement. Differential includes postoperative seroma, pseudomeningocele with a thin communication or less likely abscess unless there are clinical signs of infection. This does not cause any mass effect on the thecal sac. Subtle lumbar vertebral levoscoliosis. Vertebral body heights maintained. T12-L1 disc level on the sagittal images unremarkable. No sign of canal or foraminal narrowing. L1-2 (L1): Minimal disc space narrowing without significant desiccation. Subtle posterior disc bulging and endplate spurring causing minimal mass effect on the anterior thecal sac. No significant canal or foraminal stenosis. L2-3 (L2): Severe disc space narrowing and probable disc space surgical implant. Subtle retrolisthesis of L2 relative to 3 due to the disc space height loss. Moderate lateral syndesmophyte formation on both sides. Mild mass effect on the anterior thecal sac due to posterior endplate spurring. No significant canal stenosis. Negligible left foraminal narrowing due to disc space height loss and endplate spurring. L3-4 (L3): Severe disc space narrowing and probable disc space surgical implant. Subtle posterior endplate spurring. No significant mass effect on the anterior thecal sac, or canal stenosis. Very mild right foraminal narrowing predominantly due to disc space height loss. Negligible foraminal narrowing on the left. L4-5 (L4): Mild disc space narrowing and probable disc space surgical implant. Posterior disc margin unremarkable without canal stenosis. No significant foraminal stenosis within the limitations of susceptibility artifact from the pedicle screws. L5-L6 (L5): Severe disc space narrowing, likely due to bony fusion. Subtle bulging of the posterior disc margin with mild enhancement likely representing postoperative granulation tissue. No significant mass effect on the thecal sac or canal stenosis. 16 x 8.7 x 14 mm cerebrospinal fluid signal area to the right of the thecal sac likely representing postoperative focal dilatation of the sac/nerve root junction. Minimal dilatation of the left nerve root sleeve. No significant foraminal narrowing within the limitations of the artifact from pedicle screw fixation. L6-S1 (L6): Severe disc space narrowing. Suspect disc level implant. Mild posterior endplate spurring not causing significant mass effect on the thecal sac as there is epidural lipomatosis between the posterior disc margin and anterior thecal sac (although mild canal stenosis described on the previous CT report). 11 x 8.9 x 11 mm cerebrospinal fluid signal area to the right of the thecal sac likely representing postoperative focal dilatation of the sac/nerve root junction. Minimal dilatation of the left nerve sleeve. L6-S1 left paracentral, subarticular and medial foraminal disc level extradural defect having similar signal to the adjacent bony structures on the T1 and T2-weighted images suspicious for a prominent spur. This is immediately below and medial to the exiting left L6 nerve root, not appearing to displace it. It is lateral to the S1 nerve root within the spinal canal after the root exits the thecal sac appearing to contact the nerve root and mildly displace it posterio (more content not included)... [employer] Work Phone: MRI LUMBAR SPINE W WO CONTRA STon 01-24-2021 MRI LUMBAR SPINE W WO CONTRAST MRI lumbar spine without and with contrast HISTORY: Back pain radiating to both hips and left leg. Subjective left leg weakness. COMPARISON: No prior lumbar MRI exams available for correlation. Attempts were made to obtain prior MRIs but none were available. 09/19/2018 CT lumbar spine report from [facility]. TECHNIQUE: Sagittal T1, T2, and inversion recovery. Axial and coronal T2. Sagittal and axial T1 with fat suppression after the IV administration of 20 mL of gadolinium (ProHance). FINDINGS: There is a variation in the number of presacral spinal vertebra with 25 rather than the typical 24 confirmed on a sagittal whole spine T1 localizer. By convention the 12th vertebrae after the first 7 cervical, whether it is rib-bearing or not, is referred to as T12. The 24th overall vertebra is referred to as L5 and the 25th referred to as L6 on this exam. Vertebral levels are annotated on the sagittal T2-weighted images of the exam. Disc level enumeration on this MRI is one level greater than on the previous CT report. Conus medullaris is included on the very edge of the sagittal scan plane terminating just below the L1-2 disc level. Extensive lumbar surgical changes with right pedicle screws at the L4, L5, L6 and S1 levels. Left pedicle screws at L4, L5, and S1. Suspect disc implants at L6-S1, L4-5, L3-4 and L2-3. 4.7 x 1.6 x 3.1 cm well-defined collection posterior to the thecal sac at the right parasagittal L4-5 through L6-S1 disc level. This has slightly higher than cerebrospinal fluid signal on the T1-weighted images. This may relate to increased protein content. It has very minimal marginal enhancement. Differential includes postoperative seroma, pseudomeningocele with a thin communication or less likely abscess unless there are clinical signs of infection. This does not cause any mass effect on the thecal sac. Subtle lumbar vertebral levoscoliosis. Vertebral body heights maintained. T12-L1 disc level on the sagittal images unremarkable. No sign of canal or foraminal narrowing. L1-2 (L1): Minimal disc space narrowing without significant desiccation. Subtle posterior disc bulging and endplate spurring causing minimal mass effect on the anterior thecal sac. No significant canal or foraminal stenosis. L2-3 (L2): Severe disc space narrowing and probable disc space surgical implant. Subtle retrolisthesis of L2 relative to 3 due to the disc space height loss. Moderate lateral syndesmophyte formation on both sides. Mild mass effect on the anterior thecal sac due to posterior endplate spurring. No significant canal stenosis. Negligible left foraminal narrowing due to disc space height loss and endplate spurring. L3-4 (L3): Severe disc space narrowing and probable disc space surgical implant. Subtle posterior endplate spurring. No significant mass effect on the anterior thecal sac, or canal stenosis. Very mild right foraminal narrowing predominantly due to disc space height loss. Negligible foraminal narrowing on the left. L4-5 (L4): Mild disc space narrowing and probable disc space surgical implant. Posterior disc margin unremarkable without canal stenosis. No significant foraminal stenosis within the limitations of susceptibility artifact from the pedicle screws. L5-L6 (L5): Severe disc space narrowing, likely due to bony fusion. Subtle bulging of the posterior disc margin with mild enhancement likely representing postoperative granulation tissue. No significant mass effect on the thecal sac or canal stenosis. 16 x 8.7 x 14 mm cerebrospinal fluid signal area to the right of the thecal sac likely representing postoperative focal dilatation of the sac/nerve root junction. Minimal dilatation of the left nerve root sleeve. No significant foraminal narrowing within the limitations of the artifact from pedicle screw fixation. L6-S1 (L6): Severe disc space narrowing. Suspect disc level implant. Mild posterior endplate spurring not causing significant mass effect on the thecal sac as there is epidural lipomatosis between the posterior disc margin and anterior thecal sac (although mild canal stenosis described on the previous CT report). 11 x 8.9 x 11 mm cerebrospinal fluid signal area to the right of the thecal sac likely representing postoperative focal dilatation of the sac/nerve root junction. Minimal dilatation of the left nerve sleeve. L6-S1 left paracentral, subarticular and medial foraminal disc level extradural defect having similar signal to the adjacent bony structures on the T1 and T2-weighted images suspicious for a prominent spur. This is immediately below and medial to the exiting left L6 nerve root, not appearing to displace it. It is lateral to the S1 nerve root within the spinal canal after the root exits the thecal sac appearing to contact the nerve root and mildly displace it posterior medially. Medial left foraminal-lateral recess stenosis accentuated by facet arthrosis is suspected, rather than true foraminal stenosis. Left bony foramina (more content not included)... Normal [facility] POCT Venouson 01-24-2021 Creatinine [Mass/Vol] 0.6 mg/dL Normal 0.6-1.1 [facility] Comment on above: Performed By: #### P SIOBHAN #### [facility] [address] [facility] [address] GFR >60 Normal >60 [facility] Comment on above: Result Comment: >60 mL/min/1.73m2 EGFR, calc. for ages 18 and older using the MDRD formula (not corrected for weight), is valid for stable renal function. Performed By: #### P SIOBHAN #### [facility] [address] [facility] [address] GFR/1.73 sq M.predicted among blacks MDRD (S/P/Bld) [Vol rate/Area] mL/min/{1.73_m2} Normal >60 [facility] Comment on above: Result Comment: >60 mL/min/1.73m2 EGFR, calc. for ages 18 and older using the MDRD formula (not corrected for weight), is valid for stable renal function. Performed By: #### P SIOBHAN #### [facility] [address] [address] POC Performed on SEE BELOW Normal [facility] Comment on above: Result Comment: Perf ormed on POC Performed By: #### P SIOBHAN #### [facility] [address] [address] POC Sample Type SIOBHAN Normal [facility] Comment on above: Performed By: #### P SIOBHAN #### [facility] [address] [facility] [id number] POCT VenousOrdered By: Concepcion leary Result on 01-24-2021 Creatinine [Mass/Vol] 0.6 mg/dL 0.6 - 1.1 mg/dL [facility] [employer] Phone: GFR >60 >60 [employer] Phone: Comment on above: >60 mL/min/1.73m2 EG FR, calc. for ages 18 and older using the MDRD formula (not corrected for weight), is valid for stable renal function. GFR Non- >60 >60 [employer] Phone: Comment on above: >60 mL/min/1.73m2 EG FR, calc. for ages 18 and older using the MDRD formula (not corrected for weight), is valid for stable renal function. Performed on SEE BELOW [facility] Phone: Comment on above: Performed on POC Sample Type SIOBHAN [employer] Phone: PROGRESSon 05-12-2017 PROGRESS HNO ID: [id number]: Cruz Miramontes) Margarito: (none)Author Type: Physician AssistantType: Progress NotesFiled: 05/12/2017 5:12 PMNote Text:Referring physician:Dr. VelezUBJECTIVE:Maranda Davis presents for the evaluation of her back and hip pain and todiscuss the possibility of a pain pump. Maranda has had milner pain for manyyears and has had 5 surgeries on her spine. The fist one in 2006 and thelast one in 2015 that was a fusion with hardware. In 2012 she had a B[employer] Mode system SCS implanted, 2 perc leads. She state the it worked forabout 6 months. During one of her back surgeries the system was damagedand she has had it off since 2014. Her back pain continues to be her worstpain and she describes it as a constant sharp stabbing pain that radiatesinto her hips. Her current pain med regimen is not controlling her painwell. Her pain worsens with activity and improves with lying down. She hasdifficulty sleeping however due to the radiating pain into her hips.She also has some all over body pain and was diagnosed with [id number] years ago and, Chronic Lyme's disease and Lupus about 5 years ago.She is most bothered by her back and hip pain.Past Surgical History:PAST SURGICAL [id number]: BACK SURGERY HX Comment: fusion [id number], 2010: BACK SURGERY HX Comment: L4-5 fusion, RHWNo date: BUNIONECTOMY, LAPIDUS-TYPENo date: CHG DELIVERYNo date: CHOLECYSTECTOMY HXNo date: HERNIA REPAIR HXNo date: HYSTERECTOMY [id number]: LAMINECTOMY,[id number]: PAST SURGICAL HISTORY OF Comment: spinal cord stimNo date: PAST SURGICAL HISTORY OF Comment: tubal reversalNo date: TONSILLECTOMY AND ADENOIDECTOMY HXNo date: TUBAL LIGATION HXPast Medical History:PAST MEDICAL HISTORYDiagnosis Date- Anemia- Anxiety and depression- Arthritis- Back pain- BMI 31.0-31.9,adult- Bursitis- Diabetes (HCC)- Excessive sweating- High cholesterol- Lyme disease- Smoker- TremorCurrent Medications:Current Outpatient Prescriptions:clonazePAM (KLONOPIN) 1 mg tablet Take 1 mg by mouth daily at bedtime.metoprolol succinate ER (TOPROL XL) 25 mg 24 hr tablet Take 25 mg by mouthonce daily.traZODone (DESYREL) 50 mg tablet Take 50 mg by mouth daily at bedtime.Take 1 to 2 tablets by mouth at bedtime as neededvenlafaxine (EFFEXOR) 75 mg tablet Take 75 mg by mouth every morning. Taketwo capsules by mouth every morningSUMAtriptan (IMITREX) 100 mg tablet Take 100 mg by mouth as needed forMigraine Headache (see administration instructions) (take one tablet bymouth as needed for migraine may repeat once in 2 hours max 2 tabls daily4 tabs in one week).predniSONE (DELTASONE) 10 mg tablet Take 10 mg by mouth once daily. Take 4tabs daily for 4 days, 3 tabs for 4 days, 2 tabs for 4 days, 1 tab for 4days QTY#40Pregabalin (LYRICA) 200 mg capsule Take 200 mg by mouth three times daily.oxyCODONE ER (OXYCONTIN) 10 mg 12 hr tablet Take 10 mg by mouth every 12hours.OXcarbazepine (TRILEPTAL) 150 mg tablet Take 150 mg by mouth three timesdaily.baclofen (LIORESAL) 10 mg tablet Take 10 mg by mouth four times daily.estradiol (ESTRACE) 2 mg tablet Take 2 mg by mouth once daily.tolterodine ER (DETROL LA) 4 mg 24 hr capsule Take 4 mg by mouth twicedaily.IBUPROFEN (MOTRIN ORAL) Take by mouth.No current facility-administered medications for this visit.Allergies:Review of patient's allergies indicates no known allergies.Major Trauma or Injuries: NoneSocial History:Social History Marital status: Spouse name: Years of education: Number of children: 3Occupational HistoryOccupation Employer Commentnot working/disabl*Social History Main Topics Smoking status: Current Some Day Smoker Packs/day: 0.20 Years: 33.00 Types: Cigarettes Alcohol use: NoFamily History:FAMILY HISTORY Diabetes Paternal Grandfather Blood Disease Father Cancer Maternal Grandmother Cancer Paternal GrandfatherREVIEW OF SYSTEMS:Constitutional: No recent fever or weight lossSkin: Denies itching, rashes, skin cancers or conditionsEyes: Denies complaints of blurred vision and diplopia, Uses glasses andor contact lensesENMT: Denies dysphagia, tinnitis, vertigo and hearing loss, Does not usedenturesEndocrine: Denies history of Type l or Type ll diabetes mellitus, Denieshistory of Thyroid diseaseCV: Denies history of chest pain, prior NJ's, palpitations, heart failure,murmurs,, circulatory problems, leg swelling, hyperlipidemia, hypertensionRespiratory: Denies history of paroxymal nocturnal dyspnea, recent cough,orthopnea, shortness of breath, COPD, emphysema, asthma, pneumonia,tuberculosisGa strointestinal: Denies history of nausea, vomiting, diarrhea,constipation, ulcers, heartburn, abdominal painGenitourinary: Denies hematuria, dysuria, incontinence, kidney disease,sexual dysfunctionMusculoskelet al: Denies complaint of unstable gait, arthritis, goutNeurological: migraines Denies history of syncope, memory changes, ordisorientationDenies complaint of headacheDenies complaint of diplopia or decreased visual acuityDenies complaint of arm / leg numbnessDenies problem with limb coordinationDenies history of seizures and strokesDenies loss of consciousness or other neurologic diseasePsychiatric: Denies history of hallucinations, anxiety, substance abusePHYSICAL EXAMINATION:Vitals: BP 117/72 (BP Site: Left Arm, BP Position: Sitting, BP Cuff Size:Large Adult) Pulse 67 Ht 177.8 cm (5' 10 ) Wt 102.1 kg (225 lb) BMI 32.28 kg/m6Isuyqkhjontztd: Well developed, well nourishedSkin: [place], warm, dry, no lesions or rashesHead, Face, Neck: Normocephalic/atraumatic Eyes: Clear conjunctiva, non-ictericFOCUSED NEUROLOGIC EXAMHigher integrative function: Oriented to person, place and time, speechclear and fluent, fundi of knowledge good, accurate naming of objectsCN II: Visual mcgregor full to confrontationCN III, IV, : full extraoccular movements, without nystagmusCN V: Facial sensation intact bilaterally to fine touch and pinprick,masseter 5/5CN VII: Facial muscles symmetric and strong, No noted facial droopCN VIII: Hears finger rub well bilaterallyCN IX: not examinedCN X: Palate elevates symmetricallyCN XI: Full strength shoulder shrug bilaterallyCN XII: Tongue protrusion full and midlineMotor: muscle strength 4/5 both upper and lower extremities, arm swingnormal, no drift present, muscle tone normal and without evidence ofatrophyCerebellar: gait steadySensory: intact to touchMEDICAL DECISION MAKINGData Review: [facility] records reviewedDiagnosis: chronic painIMP: Maranda is 47 with a history of chronic low back and hop pain that hasnot responded to surgical interventions dating back to 2006. Her pain didrespond to to SCS for a short time but the system was compromised duringone of her surgeries and has not been in use since 2012. She feels thatcontrolling her back pain would be a significant improvement in her life.A pain pump may not be her best option. Her current system could beremoved and replaced with 2 Nevro leads for a trial since the Nevro systemis specifically designed for back pain.We will start with another LOCAL GOVERNMENT LEGISLATOR test and progress from thereDr. Scales present to discuss treatment optionsSOCORRO Gutierrez [facility] CNOVguero 05-11-2017 CNOV Office Visit (NREU10) MARANDA DAVIS ([id number]) 1970 FDate Time Provider Department05/11/17 3:40 PM CORKY SCALES NREU10 During your visit today, we recorded the following information about you: Pulse Blood pressure Weight Height 67/minute 117/72 102.1 kg 1.778 Sammy Scales MD 05/12/2017 5:12 PM [facility]igned[facility] ST[facility]FF PHYSICIAN NOTE OF PERSONAL INVOLVEMENT IN CAREI have reviewed the consult note obtained and documented by the physicianassistant and I personally participated in the larson components. I have discussedthe case and management of the patient's care. The following comments revise orconfirm relevant larson components of their note.IMPRESSION and PLAN: This is a 47 year old female who presents with multiplepainful areas; however most prominent is her back and hip pain. She had percSCS leads which worked for a while, but [employer] system was unable toreprogram these leads to control her pain after a subsequent spine surgery. Shepresented for discussion regarding a pain pump. I think that is a higher riskprocedure, given her lumbar sacral fusion, and has a lower chance of treatingher pain. I have instead recommended we explant her SCS system, place a Nevrotrial, and then consider a nevro paddle lead if successful. She will need a newneuropsyc evaluation.SIGNATURE: Josefa Smith PA-C 05/12/2017 5:12 PM SignedReferring physician:Dr. VelezUBJECTIVE:Maranda Davis presents for the evaluation of her back and hip pain and todiscuss the possibility of a pain pump. Maranda has had milner pain for many yearsand has had 5 surgeries on her spine. The fist one in 2006 and the last one [id number] that was a fusion with hardware. In 2012 she had a [employer] [place] [employer] SCS implanted, 2 perc leads. She state the it worked for about 6 months.During one of her back surgeries the system was damaged and she has had it offsince 2014. Her back pain continues to be her worst pain and she describes itas a constant sharp stabbing pain that radiates into her hips. Her current painmed regimen is not controlling her pain well. Her pain worsens with activityand improves with lying down. She has difficulty sleeping however due to theradiating pain into her hips.She also has some all over body pain and was diagnosed with fibromyalgia 25years ago and, Chronic Lyme's disease and Lupus about 5 years ago.She is most bothered by her back and hip pain.Past Surgical History:PAST SURGICAL [id number]: BACK SURGERY HX Comment: fusion [id number], 2010: BACK SURGERY HX Comment: L4-5 fusion, RHWNo date: BUNIONECTOMY, LAPIDUS-TYPENo date: CHG DELIVERYNo date: CHOLECYSTECTOMY HXNo date: HERNIA REPAIR HXNo date: HYSTERECTOMY [id number]: LAMINECTOMY,[id number]: PAST SURGICAL HISTORY OF Comment: spinal cord stimNo date: PAST SURGICAL HISTORY OF Comment: tubal reversalNo date: TONSILLECTOMY AND ADENOIDECTOMY HXNo date: TUBAL LIGATION HXPast Medical History:PAST MEDICAL HISTORYDiagnosis Date- Anemia- Anxiety and depression- Arthritis- Back pain- BMI 31.0-31.9,adult- Bursitis- Diabetes (HCC)- Excessive sweating- High cholesterol- Lyme disease- Smoker- TremorCurrent Medications:Current Outpatient Prescriptions:clonazePAM (KLONOPIN) 1 mg tablet Take 1 mg by mouth daily at bedtime.metoprolol succinate ER (TOPROL XL) 25 mg 24 hr tablet Take 25 mg by mouth oncedaily.traZODone (DESYREL) 50 mg tablet Take 50 mg by mouth daily at bedtime. Take 1to 2 tablets by mouth at bedtime as neededvenlafaxine (EFFEXOR) 75 mg tablet Take 75 mg by mouth every morning. Take twocapsules by mouth every morningSUMAtriptan (IMITREX) 100 mg tablet Take 100 mg by mouth as needed for MigraineHeadache (see administration instructions) (take one tablet by mouth as neededfor migraine may repeat once in 2 hours max 2 tabls daily 4 tabs in one week).predniSONE (DELTASONE) 10 mg tablet Take 10 mg by mouth once daily. Take 4 tabsdaily for 4 days, 3 tabs for 4 days, 2 tabs for 4 days, 1 tab for 4 daysQTY#40Pregabalin (LYRICA) 200 mg capsule Take 200 mg by mouth three times daily.oxyCODONE ER (OXYCONTIN) 10 mg 12 hr tablet Take 10 mg by mouth every 12 hours.OXcarbazepine (TRILEPTAL) 150 mg tablet Take 150 mg by mouth three times daily.baclofen (LIORESAL) 10 mg tablet Take 10 mg by mouth four times daily.estradiol (ESTRACE) 2 mg tablet Take 2 mg by mouth once daily.tolterodine ER (DETROL LA) 4 mg 24 hr capsule Take 4 mg by mouth twice daily.IBUPROFEN (MOTRIN ORAL) Take by mouth.No current facility-administered medications for this visit.Allergies:Review of patient's allergies indicates no known allergies.Major Trauma or Injuries: NoneSocial History:Social History Marital status: Spouse name: Years of education: Number of children: 3Occupational HistoryOccupation Employer Commentnot working/disabl*Social History Main Topics Smoking status: Current Some Day Smoker Packs/day: 0.20 Years: 33.00 Types: Cigarettes Alcohol use: NoFamily History:FAMILY HISTORY Diabetes Paternal Grandfather Blood Disease Father Cancer Maternal Grandmother Cancer Paternal GrandfatherREVIEW OF SYSTEMS:Constitutional: No recent fever or weight lossSkin: Denies itching, rashes, skin cancers or conditionsEyes: Denies complaints of blurred vision and diplopia, Uses glasses and orcontact lensesENMT: Denies dysphagia, tinnitis, vertigo and hearing loss, Does not usedenturesEndocrine: Denies history of Type l or Type ll diabetes mellitus, Denieshistory of Thyroid diseaseCV: Denies history of chest pain, prior NJ's, palpitations, heart failure,murmurs,, circulatory problems, leg swelling, hyperlipidemia, hypertensionRespiratory: Denies history of paroxymal nocturnal dyspnea, recent cough,orthopnea, shortness of breath, COPD, emphysema, asthma, pneumonia, tuberculosisGastrointest inal: Denies history of nausea, vomiting, diarrhea, constipation,ulcers, heartburn, abdominal painGenitourinary: Denies hematuria, dysuria, incontinence, kidney disease, sexualdysfunctionMusculo skeletal: Denies complaint of unstable gait, arthritis, goutNeurological: migraines Denies history of syncope, memory changes, ordisorientationDenies complaint of headacheDenies complaint of diplopia or decreased visual acuityDenies complaint of arm / leg numbnessDenies problem with limb coordinationDenies history of seizures and strokesDenies loss of consciousness or other neurologic diseasePsychiatric: Denies history of hallucinations, anxiety, substance abusePHYSICAL EXAMINATION:Vitals: BP 117/72 (BP Site: Left Arm, BP Position: Sitting, BP Cuff Size:Large Adult) Pulse 67 Ht 177.8 cm (5' 10ANDquot;) Wt 102.1 kg (225 lb) BMI 32.28 kg/k2Tjiuemqyyvzscf: Well developed, well nourishedSkin: [place], warm, dry, no lesions or rashesHead, Face, Neck: Normocephalic/atraumatic Eyes: Clear conjunctiva, non-ictericFOCUSED NEUROLOGIC EXAMHigher integrative function: Oriented to person, place and time, speech clearand fluent, fundi of knowledge good, accurate naming of objectsCN II: Visual mcgregor full to confrontationCN III, IV, : full extraoccular movements, without nystagmusCN V: Facial sensation intact bilaterally to fine touch and pinprick, masseter5/5CN VII: Facial muscles symmetric and strong, No noted facial droopCN VIII: Hears finger rub well bilaterallyCN IX: not examinedCN X: Palate elevates symmetricallyCN XI: Full strength shoulder shrug bilaterallyCN XII: Tongue protrusion full and midlineMotor: muscle strength 4/5 both upper and lower extremities, arm swing normal,no drift present, muscle tone normal and without evidence of atrophyCerebellar: gait steadySensory: intact to touchMEDICAL DECISION MAKINGData Review: [facility] records reviewedDiagnosis: chronic painIMP: Maranda is 47 with a history of chronic low back and hop pain that has notresponded to surgical interventions dating back to 2006. Her pain did respondto to SCS for a short time but the system was compromised during one of hersurgeries and has not been in use since 2012. She feels that controlling herback pain would be a significant improvement in her life. A pain pump may notbe her best option. Her current system could be removed and replaced with 2Nevro leads for a trial since the Nevro system is specifically designed forback pain.We will start with another LOCAL GOVERNMENT LEGISLATOR test and progress from thereDrPatricia Scales present to discuss treatment optionsErica ALVARADO Duque-CReferring Provider: KANDY GOMEZ [[id number]]Allergies As of Date: 05/11/2017(No Known Allergies)Date Reviewed: 05/11/2017Reviewed by: Nae Norton) PELON Recinos - Fully AssessedReason for Visit: New Patient Evaluation [154]Primary Visit Diagnosis:Chronic pain syndrome [G89.4] Other Visit Diagnosis:S/P lumbar fusion [Z98.1]Order(s):CONSULT TO NEURO/PSYCH [[id number]] Order #: [id number]: 1Prescriptions as of 05/11/2017 Sig: CLONAZEPAM 1 MG TABLET Take 1 mg by mouth daily at b* METOPROLOL SUCCINATE ER 25 MG* Take 25 mg by mouth once ericka* TRAZODONE 50 MG TABLET Take 50 mg by mouth daily at * VENLAFAXINE 75 MG TABLET Take 75 mg by mouth every mor* SUMATRIPTAN 100 MG TABLET Take 100 mg by mouth as neede* PREDNISONE 10 MG TABLET Take 10 mg by mouth once ericka* PREGABALIN 200 MG CAPSULE Take 200 mg by mouth three ti* OXYCODONE ER 10 MG TABLET,CRU* Take 10 mg by mouth every 12 * OXCARBAZEPINE 150 MG TABLET Take 150 mg by mouth three ti* BACLOFEN 10 MG TABLET Take 10 mg by mouth four time* ESTRADIOL 2 MG TABLET Take 2 mg by mouth once daily. TOLTERODINE ER 4 MG CAPSULE,E* Take 4 mg by mouth twice ericka* MOTRIN ORAL Take by mouth.Medication notes this encounter OXYCODONE ER 10 MG TABLET,CRUSH RESISTANT,EXTENDED RELEASE 12 HR >> Nae Recinos MA, MA 05/11/2017 3:52 PM >> NAE RECINOS May 11, 2017 3:52 PM Take one tablet by mouth 3 times a day as needed 05/11/17 TOLTERODINE ER 4 MG CAPSULE,EXTENDED RELEASE 24 HR >> Nae Recinos MA, MA 05/11/2017 3:49 PM >> NAE RECINOS May 11, 2017 3:49 PM 1-2 capsules by mouth once a day 05/11/17Problem List As Of Date 05/11/2017 Noted Resolved Anxiety and depression [F41.8] Anemia [D64.9] Arthritis [M19.90] Bursitis [M71.9] Diabetes (HCC) [E11.9] High cholesterol [E78.00] Lyme disease [A69.20] Back pain [M54.9] BMI 31.0-31.9,adult [Z68.31] Smoker [F17.200] Excessive sweating [R61] Tremor [R25.1] Spinal cord stimulator status [Z96.89] INVALID FOR* Spondylolisthesis of lumbar region [M43.16] INVALID FOR* S/P lumbar laminectomy [Z98.890] INVALID FOR* S/P lumbar fusion [Z98.1] INVALID FOR* Status:Closed by CRUZ CARBALLO PA-C on 05/12/[address] [facility] PROGRESSon 05-11-2017 PROGRESS HNO ID: [id number]: Corky Webberervice: (none)Author Type: PhysicianType: Progress NotesFiled: 05/12/2017 5:12 PMNote Text:[facility] ST[facility] PHYSICIAN NOTE OF PERSONAL INVOLVEMENT IN CAREI have reviewed the consult note obtained and documented by the physicianassistant and I personally participated in the larson components. I havediscussed the case and management of the patient's care. The followingcomments revise or confirm relevant larson components of their note.IMPRESSION and PLAN: This is a 47 year old female who presents withmultiple painful areas; however most prominent is her back and hip pain.She had perc SCS leads which worked for a while, but [facility] was unable to reprogram these leads to control her pain after asubsequent spine surgery. She presented for discussion regarding a painpump. I think that is a higher risk procedure, given her lumbar sacralfusion, and has a lower chance of treating her pain. I have insteadrecommended we explant her SCS system, place a Nevro trial, and thenconsider a nevro paddle lead if successful. She will need a new neuropsycevaluation.SIGN ATURE: Corky Scales MD Normal [facility] Vital Signs Date Time Vital Sign Value Performing Clinician Facility 07-24-2024 13:30-0400 Body height 177.8 cm Grazyna Worley MD Work Phone: [facility] 07-24-2024 13:30-0400 Body mass index (BMI) [Ratio] 30.13 kg/m2 Grazyna Worley MD Work Phone: [facility] 07-24-2024 13:30-0400 Body weight 95.25 kg Grazyna Worley MD Work Phone: [facility] 07-24-2024 13:30-0400 Diastolic blood pressure 62 mm[Hg] Grazyna Worley MD Work Phone: [facility] 07-24-2024 13:30-0400 Heart rate 66 /min Grazyna Worley MD Work Phone: [facility] 07-24-2024 13:30-0400 SaO2% (BldA) [Mass fraction] 93 % Grazyna Worley MD Work Phone: [facility] 07-24-2024 13:30-0400 Systolic blood pressure 98 mm[Hg] Grazyna Worley MD Work Phone: [facility] 06-26-2024 09:35-0400 Body temperature 98.29 [degF] Edu Aguirre MD Work Phone: [place] 06-26-2024 09:35-0400 Body weight 99.11 kg Edu Aguirre MD Work Phone: [place] 06-26-2024 09:35-0400 Diastolic blood pressure 62 mm[Hg] [facility] 06-26-2024 09:35-0400 Heart rate 55 /min Edu Aguirre MD Work Phone: [place] 06-26-2024 09:35-0400 Systolic blood pressure 100 mm[Hg] Edu Aguirre MD Work Phone: [place] 11-04-2023 09:57-0500 Body height 177.8 cm [facility] 2 [facility] 11-04-2023 09:57-0500 Body mass index (BMI) [Ratio] 28.55 kg/m2 [facility] 2 [facility] 11-04-2023 09:57-0500 Body weight 90.27 kg [facility] 2 [facility] 09-14-2023 09:40-0500 Blood Pressure Location KATIA RASHID [facility] 09-14-2023 09:40-0500 Diastolic blood pressure 70 mm[Hg] KATIA TALA [facility] 09-14-2023 09:40-0500 Heart rate 58 /min KATIA TALA [facility] 09-14-2023 09:40-0500 Respiratory rate 16 /min KATIA TALA [facility] 09-14-2023 09:40-0500 Systolic blood pressure 106 mm[Hg] KATIA TALA [facility] 05-01-2023 09:00-0400 Body height 177.8 cm Sara Hoyos Other [employer] [facility] [place] Other 05-01-2023 09:00-0400 Body mass index (BMI) [Ratio] 31.94 kg/m2 Sara Hoyos Other [place] Other 05-01-2023 09:00-0400 Body temperature 97.8 [degF] Sara Hoyos Other [facility] Other 05-01-2023 09:00-0400 Body weight 100.97 kg Sara Soha Other [facility] Other 05-01-2023 09:00-0400 Diastolic blood pressure 55 mm[Hg] Sara Hoyos Other [facility] Other 05-01-2023 09:00-0400 Respiratory rate 18 /min Sara Hoyos Other [facility] Other 05-01-2023 09:00-0400 SaO2% (BldA) [Mass fraction] 95 % Sara Hoyso Other [facility] Other 05-01-2023 09:00-0400 Systolic blood pressure 98 mm[Hg] Sara Hoyos Other [facility] Other 09-25-2021 13:11-0500 Body height 177.8 cm Doctor.comarcelia [employer] Work Phone: [facility] DO Work Phone: 09-25-2021 13:11-0500 Body mass index (BMI) [Ratio] 35.58 kg/m2 Grazyna [employer] Work Phone: [facility] 250 DO Work Phone: 09-25-2021 13:11-0500 Body surface area Derived from formula 2.29 m2 Doctor.comarcelia [employer] Work Phone: [facility] 250 DO Work Phone: 09-25-2021 13:11-0500 Body weight 112.49 kg Grazyna Real Brunilda Work Phone: [facility] 250 DO Work Phone: 09-25-2021 13:11-0500 Diastolic blood pressure 76 mm[Hg] Parvezen Farhan Brunilda Work Phone: [facility] 250 DO Work Phone: 09-25-2021 13:11-0500 Heart rate 62 /min [employer] Brunilda Work Phone: [facility] 250 DO Work Phone: 09-25-2021 13:11-0500 Systolic blood pressure 120 mm[Hg] [employer] [place] Work Phone: [facility] 250 DO Work Phone: Encounters Encounter Date Encounter Type Care Provider Facility Start: 07-31-2024 End: 07-31-2024 Refill Grazyna Worley MD Work Phone: [facility] Comment on above: Fibromyalgia Obstructive sleep ap neri Start: 07-24-2024 End: 07-24-2024 Bamboo flowsheet Grazyna Worley MD Work Phone: [facility] Start: 07-24-2024 End: 07-24-2024 Bamboo flowsheet Grazyna Worley MD Work Phone: [facility] Start: 07-24-2024 End: 07-24-2024 Patient encounter procedure Grazyna Worley MD Work Phone: [facility] Start: 07-24-2024 End: 07-24-2024 Patient encounter status Grazyna Worley MD Work Phone: [facility] Work Phone: Start: 07-24-2024 End: 07-24-2024 Periodic preventive med est patient 40-64yrs Grazyna Worley MD Work Phone: [facility] Comment on above: Encounter for well a dult exam without abnormal findings (Primary Dx); Hyperlipidemia, unspecified hyperlipidemia type (CMS/HCC); Glucose intolerance (impaired glucose tolerance); Annual physical exam; Encounter for vaccination; Encounter for screening mammogram for malignant neoplasm of breast; Depressive disorder (CMS/HCC); Hot flashes Start: 07-24-2024 End: 07-24-2024 ambulatory GRAZYNA WORLEY Not Available Start: 07-20-2024 End: 07-20-2024 Refill Krystal CHILDERS Work Phone: [facility] Comment on above: Sleep disturbance Start: 07-16-2024 End: 07-16-2024 Letter encounter Edu Aguirre MD Work Phone: [facility] Start: 06-26-2024 End: 06-26-2024 Subsequent hospital visit by physician Op Xray 1 [facility] Comment on above: Polyarthralgia Start: 06-26-2024 End: 06-26-2024 ambulatory UNKNOWN PROVIDER Facility:[facility] Start: 06-26-2024 End: 06-26-2024 Office outpatient new 45 minutes Edu Aguirre MD Work Phone: [facility] (Arthritis) Comment on above: SASCHA positive (Primar y Dx); Polyarthralgia Start: 06-26-2024 End: 06-26-2024 ambulatory EDU AGUIRRE Facility:[facility] Start: 05-23-2024 End: 05-23-2024 ambulatory CARLOS CALVERT Not Available Start: 04-25-2024 End: 04-25-2024 ambulatory MARIELA LUONG Not Available Start: 04-18-2024 End: 04-18-2024 ambulatory MARIELA LUONG Not Available Start: 04-12-2024 End: 04-12-2024 ambulatory SANJANA BAHENA Not Available Start: 03-30-2024 End: 03-30-2024 ambulatory CARLOS CALVERT Not Available Start: 03-21-2024 End: 03-21-2024 ambulatory LEONELA GATES Not Available Start: 02-10-2024 End: 02-10-2024 ambulatory JOLEEN T STATON Not Available Start: 01-31-2024 End: 01-31-2024 ambulatory RGAZYNA WORLEY Not Available Start: 01-25-2024 End: 01-25-2024 ambulatory JOLEEN T STATON Not Available Start: 01-11-2024 End: 01-11-2024 ambulatory JOLEEN T STATON Not Available Start: 01-03-2024 End: 01-03-2024 ambulatory JOLEEN T STATON Not Available Start: 12-27-2023 End: 12-27-2023 ambulatory JOLEEN T STATON Not Available Start: 12-23-2023 End: 12-23-2023 ambulatory JOLEEN T STATON Not Available Start: 12-21-2023 End: 12-21-2023 ambulatory ELMER BENEDICT Not Available Start: 12-16-2023 End: 12-16-2023 ambulatory ELMER BENEDICT Not Available Start: 12-14-2023 End: 12-14-2023 ambulatory CARLOS CALVERT Not Available Start: 12-13-2023 End: 12-13-2023 ambulatory ELMER BENEDICT Not Available Start: 12-09-2023 End: 12-09-2023 ambulatory JOLEEN STATON Not Available Start: 12-06-2023 End: 12-06-2023 ambulatory ELMER BENEDICT Not Available Start: 12-03-2023 End: 12-03-2023 ambulatory NIKHIL Casillas ABREU [facility] Start: 12-01-2023 End: 12-03-2023 ambulatory [facility] Start: 12-01-2023 End: 12-02-2023 ambulatory [facility] Start: 11-30-2023 End: 12-01-2023 ambulatory [facility] Start: 11-19-2023 Refill Krystal Flores PA Work Phone: [facility] Comment on above: Obstructive sleep ap neri Start: 11-16-2023 Bamboo flowsheet Krystal Real Hemme r PA Work Phone: [facility] Start: 11-16-2023 Bamboo flowsheet Krystal Real Hemme r PA Work Phone: [facility] Start: 11-16-2023 End: 11-16-2023 ambulatory KRYSTAL FLORES Not Available Start: 11-12-2023 Refill Grazyna Oseguera Work Phone: [facility] Comment on above: Sleep disturbance Start: 11-04-2023 End: 11-05-2023 ambulatory [facility] Start: 11-04-2023 Encounter for other preprocedural examination [facility] Start: 11-04-2023 End: 11-04-2023 Patient encounter procedure [facility] Pre-Admission Testing 2 [facility] - Pre Admit Comment on above: Preop examination (P rimary Dx); Type 2 diabetes mellitus without complication, unspecified whether meterman insulin use ([facility] Start: 11-04-2023 End: 11-04-2023 Preprocedural examination done [facility] 2 [facility] Start: 11-04-2023 End: 11-04-2023 ambulatory CARLOS CALVERT Not Available Start: 10-19-2023 End: 10-19-2023 ambulatory CARLOS CALVERT Not Available Start: 10-12-2023 End: 10-13-2023 ambulatory Kavon Merry MAX [place] Start: 10-12-2023 End: 10-12-2023 Patient encounter procedure Kavon Sousa MAX [facility] Start: 10-07-2023 End: 10-07-2023 ambulatory Grazyna Worley Facility[facility] Start: 09-29-2023 End: 09-29-2023 ambulatory TANJA OJEDA Not Available Start: 09-14-2023 End: 09-15-2023 ambulatory ALVARADO-Sweetie RASHID [place] Start: 09-14-2023 End: 09-15-2023 ambulatory KRYSTAL HEMMER Facility:[facility] [place] Start: 09-14-2023 End: 09-14-2023 Lab Drop off KATIA RASHID [facility] Start: 09-14-2023 End: 09-14-2023 Patient encounter procedure KATIA RASHID [facility] Start: 09-07-2023 End: 09-07-2023 ambulatory KRYSTAL M HEMNAYANA Not Available Start: 07-14-2023 ambulatory KRYSTAL HEMMER Facility:[facility] Start: 05-01-2023 End: 05-01-2023 ambulatory Grazyna Worley [place] [facility] Start: 05-01-2023 Office outpatient vi sit 15 minutes [facility] Start: 02-16-2023 End: 02-16-2023 ambulatory Grazyna Worley Facility:[facility] Start: 02-16-2023 End: 02-16-2023 ambulatory MD Grazyna Worley Work Phone: [facility] Work Phone: Start: 02-16-2023 End: 02-16-2023 Patient encounter procedure MD Grazyna Worley Work Phone: [facility] [address] Work Phone: Start: 10-28-2022 End: 10-28-2022 ambulatory CAITY BARBER Facility:[facility] Start: 11-26-2021 End: 11-27-[address] GRAZYNA WORLEY Facility:[facility] Start: 09-25-2021 Office outpatient ne w 45 minutes [facility] Work Phone: Start: 01-24-2021 End: 01-27-2021 ambulatory GRAZYNA WORLEY [facility] Start: 01-24-2021 End: 01-26-2021 Subsequent hospital visit by physician Ho Mri Room 1 [facility] MRI Comment on above: Postlaminectomy synd erick, lumbar Start: 12-08-2018 Patient encounter procedure Errol Zepeda Facility:[id number] Start: 05-11-2017 End: 05-11-2017 Ambulatory CORKY A BETH [facility] Wor[facility] Work Phone: Procedures Date Procedure Procedure Detail Performing Clinician Start: 07-24-2024 Hemoglobin glycosylated a1c Grazyna Worley MD Work Phone: Start: 06-26-2024 Joint survey single view 2 or more joints Edu Aguirre MD Work Phone: Start: 06-26-2024 C-reactive protein Edu gillespie MD Work Phone: Start: 06-26-2024 Sedimentation rate r bc non-automated Edu Aguirre MD Work Phone: Start: 02-05-2022 Mammography Grazyna Worley MD Work Phone: Start: 05-13-2021 Antibody screen Comment on above: Order Comment: CBN: NO [place]: MAIN Transfusion Status: CONSERVATION Blood Bank service requested: TYPE AND SCREEN Performed By: #### B 100.0200 #### Test performed at: [facility] [address] [place], [place] [address] Start: 01-24-2021 Mri spinal canal lum bar w/o & w/contr matrl Kvng Katz MD Work Phone: Start: 01-24-2021 POCT VENOUS Unknown Pr ovider Result Abdominal hysterectomy DANIEL RASHID Back Surgery Grazyna Worley Work Phone: Bilateral tubal ligation JOLYNN IZABELADUONG RASHID Bunion Correction By Pak Procedure Grazyna Worley Work Phone: Cholecystectomy KATIA PER BEKAH Extraction of cataract DANIEL RASHID Hernia Repair Inguin al Sliding Grazyna Worley Work Phone: History of lumbar laminectomy KATIA RASHID Insertion of hip prosthesis KATIA RASHID Lumbar spinal fusion MINERVA Sousa TALA Prosthetic arthropla sty of the hip Grazyna Real [place] Work Phone: Spinal Arthrodesis Parvezarcelia Real Vinny lda Work Phone: Tonsillectomy KATIA RASHID Total colonoscopy Grazyna Beckett da Work Phone: Comment on above: 10/11/2016; Plan of Treatment Date Care Activity Detail Author Start: 06-17-2025 Screening for malign ant neoplasm of colon [facility] Start: 06-09-2025 Screening for malign ant neoplasm of colon [facility] Start: 12-21-2024 End: 12-21-2024 Patient encounter procedure 12/21/2024 2:45 PM EDT Office Visit [facility] [address] [place] [phone] Amarjit Whitlock, DO [address] [place], [place] [id number] [facility] Start: 11-28-2024 End: 11-28-2024 Patient encounter procedure 11/28/2024 9:15 AM EST Office Visit [facility] [address] [place] [address] NehalCarlos salamanca, DO [address] [place] [address] [facility] Start: 11-04-2024 Adult BMI Screening Adult BMI Screen ing [facility] Start: 11-04-2024 Tobacco Screening Tobacco Screening [facility] Start: 10-24-2024 Hemoglobin A1c measurement Diabetes: Hemoglobin A1C [facility] Start: 08-29-2024 End: 08-29-2024 Patient encounter procedure 08/29/2024 10:00 AM EST Office Visit [facility] [address] [place] [address] Grazyna Worley MD [address] [place] [address] [facility] Start: 07-24-2024 End: 07-24-2025 Lipid 1996 panel - Serum or Plasma Lipid panel Lab Routine Hyperlipidemia, unspecified hyperlipidemia type (CMS/HCC) Annual physical exam Expected: 07/24/2024 (Approximate), Expires: 07/24/2025 [facility] Work Phone: Comment on above: Expected: 07/24/2024 (Approximate), Expires: 07/24/2025 Start: 07-24-2024 End: 09-23-2025 MG Breast - bilateral Screening Bilateral screening mammogram Imaging Routine Encounter for screening mammogram for malignant neoplasm of breast Expected: 07/24/2024, Expires: 09/23/2025 [facility] Comment on above: Expected: 07/24/2024 , Expires: 09/23/2025 Start: 07-24-2024 End: 07-24-2025 Microalbumin/Creatinine panel in random Urine Microalbumin / creatinine urine ratio Lab Routine Glucose intolerance (impaired glucose tolerance) Annual physical exam Expected: 07/24/2024 (Approximate), Expires: 07/24/2025 [facility] Comment on above: Expected: 07/24/2024 (Approximate), Expires: 07/24/2025 Start: 07-24-2024 End: 07-24-2024 Patient encounter procedure [facility] Comment on above: Arrived Start: 06-26-2024 End: 06-26-2025 XR Hand Arthritis [employer] Work Phone: Comment on above: Expected: 06/26/2024 , Expires: 06/26/2025 Start: 06-11-2024 COVID-19 Vaccine ( season) COVID-19 Vaccine () [place] Start: 06-11-2024 Influenza vaccination Influenza Vacc ine (#1) [place] Start: 04-24-2024 End: 04-24-2024 Patient encounter procedure 04/24/2024 11:30 AM EDT Office Visit [facility] [address] [place] [phone] Amarjit Whitlock, DO [address] [place] [address] [facility] Start: 02-03-2024 Hemoglobin A1c measurement Diabetes: Hemoglobin A1C [facility] Start: 12-16-2023 Urine screening for protein Diabetes: Urine Protein Screening [facility] Start: 12-14-2023 End: 12-14-2023 Patient encounter procedure 12/14/2023 11:00 AM EST Office Visit [facility] [address] [place] [address] Carlos Calvert, DO [address] [place] [address] [facility] Start: 12-01-2023 End: 12-01-2023 Patient encounter procedure 12/01/2023 9:30 AM EST Procedure Visit [facility] Carlos Calvert, DO [address] [place] [address] [facility] Start: 12-01-2023 End: 12-01-2023 Admission to same day surgery center 12/01/2023 7:45 AM EST - 12/01/2023 10:15 AM EST Surgery [facility] [address] [place] [phone] Carlos Calvert, DO [address] [place] [address] REPLACEMENT TOTAL JOINT KNEE [02150 (CPT )] [facility] Comment on above: REPLACEMENT TOTAL SKYLAR INT KNEE [84163 (CPT )] Start: 12-01-2023 End: 12-01-2023 Anesthesia consultation 12/01/2023 7:45 AM EST Anesthesia Event [facility] [address] [place] [phone] Nikhil Abreu MD [address] [place] [address] [facility] Start: 12-01-2023 End: 12-01-2023 Arthrp kne condyle&platu medial&lat compartments REPLACEMENT TOTAL JOINT KNEE right knee degenerative joint disease 12/01/2023 7:45 AM EST [facility] Start: 12-01-2023 Subsequent hospital visit by physician 12/01/2023 7:45 AM EST Hospital Encounter [facility] [address] [place] [phone] Carlos Calvert, DO [address] [place] [address] [facility] Start: 11-30-2023 End: 11-30-2023 Professional / ancillary services management 11/30/2023 11:00 AM EST Ancillary Procedure [facility] [address] [place] [phone] [facility] Start: 11-22-2023 End: 10-25-2024 Crossmatch RBC Crossmatch RBC Blood Bank Routine Preop examination Type 2 diabetes mellitus without complication, unspecified whether meterman insulin use ([facility]) Expected: 11/22/2023, Expires: 10/25/2024 [facility] on above: Expected: 11/22/2023 , Expires: 10/25/2024 Start: 11-22-2023 End: 10-25-2024 Type and screen(includes indirect linden) Type and screen(includes indirect linden) Blood Bank Routine Preop examination Type 2 diabetes mellitus without complication, unspecified whether meterman insulin use ([facility]) Expected: 11/22/2023, Expires: 10/25/2024 [facility] Phone: Comment on above: Expected: 11/22/2023 , Expires: 10/25/2024 Start: 11-16-2023 End: 11-16-2023 Patient encounter procedure [facility] Comment on above: Arrived Start: 02-05-2023 Screening for malign ant neoplasm of breast [facility] Start: 06-11-2021 Influenza vaccination Flu vacc ine (Season Ended) [facility] Phone: Start: 2021 Administration of varicella zoster vaccine Zoster (Shingles) Vaccine (1 of 2) [facility] Start: 2021 Screening for malign ant neoplasm of breast Breast cancer screen [facility] Phone: Start: 2021 Screening for malign ant neoplasm of colon Colon cancer screen colonoscopy [facility] Phone: Start: 2021 Shingles (RZV) Vacci ne (1 of 2) Shingles (RZV) Vaccine (1 of 2) [place] Start: 2021 Shingles Vaccine (1 of 2) Shingles Vaccine (1 of 2) [facility] Phone: Start: 12-30-2020 Annual Wellness Visi t (AWV) Annual Wellness Visit (AWV) [facility] Phone: Start: 01-14-2016 Lipid panel Cholesterol [facility] Start: 01-14-2016 Screening for malign ant neoplasm of colon [facility] Start: 2011 Lipid panel Lipid screen [facility] Work Phone: Start: 01-14-1992 Screening for malign ant neoplasm of cervix [place] Start: 1990 DTaP,Tdap and Td Vaccines (1 - Tdap) DTaP,Tdap and Td Vaccines (1 - Tdap) [facility] Start: 1990 DTaP/Tdap/Td vaccine (1 - Tdap) DTaP/Tdap/Td vaccine (1 - Tdap) [facility] Phone: Start: 1990 Hepatitis A (HAV) Vaccine (optional start 19+ years) Hepatitis A (HAV) Vaccine (optional start 19+ years) [place] Start: 1990 Hepatitis B vaccination Hepati tis B (HBV) Vaccine (1 of 3 - 19+ 3-dose series) [place] Start: 1989 Adult BMI Follow Up Plan Adult BMI Follow Up Plan [facility] Start: 1989 Diabetic foot examination Diabetic Foot Exam [facility] Start: 1989 Hepatitis C screening Hepatitis C An tibody [place] Start: 1989 Tdap Booster Tdap Booster [facility] Start: 1987 COVID-19 Vaccine (1) COVID-19 Vaccin e (1) [facility] Phone: Start: 1986 HIV screening [facility] Start: 1983 Depression Screening Depression Scre ening [facility] Start: 1981 Glaucoma screening Diabetes: R etinopathy Screening [facility] Start: 1977 Pneumococcal 0-64 ye ars Vaccine (1 of 1 - PPSV23) Pneumococcal 0-64 years Vaccine (1 of 1 - PPSV23) [employer] Work Phone: Start: 1971 Glaucoma screening Diabetic Op hthalmology Exam [facility] Start: 1971 Hepatitis C screening Hepatitis C sc reen [employer] Work Phone: Start: 1971 Screening for malign ant neoplasm of colon [facility] Antinuclear antibodi es sascha [employer] MULTIPLEX PANEL Lab Routine SASCHA positive Polyarthralgia 06/26/2024 11:10 AM EDT [place] Cyclic citrullinated peptide antibody CYCLIC CITRULLINATED PEPTIDE,* Lab Routine SASCHA positive Polyarthralgia 06/26/2024 11:10 AM EDT [place] End: 01-24-2021 POCT Creatinine POCT Creatinine Point of Care Testing Routine One Time for 1 Occurrences starting 01/24/2021 until 01/24/2021 [employer] Work Phone: Comment on above: One Time for 1 Occur rences starting 01/24/2021 until 01/24/2021 Immunizations Immunization Date Immunization Notes Care Provider Fa [facility] 07-24-2024 influenza, seasonal, injectable, preservative free Grazyna Worley MD Work Phone: [facility] 07-14-2023 influenza, injectabl e, quadrivalent, preservative free Grazyna Worley MD Work Phone: [facility] 07-14-2023 influenza virus vaccine, unspecified formulation Edu Aguirre MD Work Phone: [place] 07-11-2023 influenza virus vaccine, unspecified formulation KATIA RASHID [facility] [place] 07-16-2020 influenza, injectabl e, quadrivalent, preservative free Rugen M Brunilda Work Phone: [facility] 07-08-2017 seasonal influenza, intradermal, preservative free Rugen M [place] Work Phone: [facility] 07-22-2016 seasonal influenza, intradermal, preservative free Rugen M Brunilda Work Phone: -[facility] [address] DO Work Phone: Payers Date Payer Category Payer Self-pay [id number] 2022 Unknown [id number] 2014 [facility] BCBS [id number] 2014 Unknown 2012 Medicare MEDICARE MEDICAR E PART A [id number] 2012-Present [address] [place] [address] Medicare [id number] 2012 Medicare [id number] 1971 Unknown [id number] 2.16.840.1.981844.3.579.2 .356 1971 Unknown [id number] 2.16.840.1.924961.3.579.2 .182 1971 Unknown [id number] 2.16.840.1.413389.3.579.2 .593 1971 Unknown [id number] 2.16.840.1.994408.3.579.2 .593 1971 Unknown [id number] 2.16.840.1.348929.3.579.2 .727 1971 Unknown [id number] 2.16.840.1.773340.3.579.2 .727 1971 Unknown [id number] 2.16.840.1.158063.3.579.2 .727 1971 Unknown [id number] 2.16.840.1.831397.3.579.2 .1285 1971 Unknown [id number] 2.16.840.1.062835.3.579.2 .1285 1971 Unknown [id number] 2.16.840.1.459663.3.579.2 .1285 1971 Unknown [id number] 2.16.840.1.650893.3.579.2 .1285 1971 Unknown [id number] 2.16.840.1.295297.3.579.2 .1285 1971 Unknown [id number] 2.16840.1.230791.3.579.2 .1285 1971 Unknown [id number] 2.16840.1.143801.3.579.2 .1285 1971 Unknown [id number] 2.16.840.1.603661.3.579.2 .1285 1971 Unknown [id number] 2.16.840.1.811670.3.579.2 .1971 Unknown [id number] 2.16840.1.464243.3.579.2 .1971 Unknown [id number] 2.16.840.1.637754.3.579.2 .1971 Unknown [id number] 2.16.840.1.689973.3.579.2 .1258 1971 Unknown [id number] 2.16.840.1.623062.3.579.2 .1258 1971 Unknown [id number] 2.16.840.1.666184.3.579.2 .1258 1971 Unknown [id number] 2.16.840.1.274675.3.579.2 .1258 1971 Unknown [id number] 2.16.840.1.441242.3.579.2 .1258 1971 Unknown [id number] 2.16.840.1.457754.3.579.2 .1258 1971 Unknown [id number] 2.16.840.1.886781.3.579.2 .1258 1971 Unknown [id number] 2.16.840.1.520781.3.579.2 .1258 1971 Unknown [id number] 2.16.840.1.109536.3.579.2 .1258 1971 Unknown [id number] 2.16.840.1.875428.3.579.2 .1258 1971 Unknown [id number] 2.16.840.1.232129.3.579.2 .1258 1971 Unknown [id number] 2.16.840.1.325190.3.579.2 .1258 1971 Unknown [id number] 2.16.840.1.762867.3.579.2 .1258 1971 Unknown [id number] 2.16.840.1.180477.3.579.2 .1258 1971 Unknown [id number] 2.16.840.1.905877.3.579.2 .1258 1971 Unknown [id number] 2.16.840.1.171717.3.579.2 .1258 1971 Unknown [id number] 2.16.840.1.125371.3.579.2 .1258 1971 Unknown [id number] 2.16.840.1.429955.3.579.2 .1258 1971 Unknown [id number] 2.16.840.1.585834.3.579.2 .1258 1971 Unknown [id number] 2.16.840.1.897225.3.579.2 .1258 1971 Unknown [id number] 2.16.840.1.253882.3.579.2 .1258 1971 Unknown [id number] 2.16.840.1.582301.3.579.2 .1258 1971 Unknown [id number] 2.16.840.1.805039.3.579.2 .1258 1971 Unknown [id number] 2.16.840.1.608079.3.579.2 .1258 1971 Unknown [id number] 2.16.840.1.932173.3.579.2 .1258 1971 Unknown [id number] 2.16.840.1.446985.3.579.2 .1258 1971 Unknown [id number] 2.840.1.805412.3.579.2 .1258 1971 Unknown [id number] 2.16840.1.646660.3.579.2 .1258 1971 Unknown [id number] 2.16.840.1.898995.3.579.2 .1258 1971 Unknown [id number] 2.16.840.1.469930.3.579.2 .1258 1971 Unknown [id number] 2.840.1.057762.3.579.2 .1258 1971 Unknown [id number] 2.840.1.613481.3.579.2 .1258 1959 Unknown [id number] Unknown [place] / [id number] Unknown [id number] 2.16.840.1.461821.3.579.2 .531 Unknown [id number] 2.16.840.1.146894.3.579.2 .531 Unknown [id number] 2.16.840.1.482617.3.579.2 .531 Social History Date Type Detail Facility Start: 09-27-2017 Tobacco smoking stat us [facility] Current every day smoker [facility] Phone: End: 10-11-2014 History of tobacco use Cigarette Smoker [employer] Start: 09-27-2017 End: 11-16-2023 Cigarettes smoked current (pack per day) - Reported [facility] Comment on above: 4 cups daily.; Quit in 2014.; Start: 09-27-2017 End: 07-28-2023 Tobacco use and exposure Never used [employer] Start: 09-27-2017 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 (finding) [facility] Phone: Start: 1970 Sex Assigned At Not on file M [facility] Phone: Exposure to SARS-CoV -2 (event) Not sure [facility] Phone: Start: 1970 Sex Assigned At Female F [facility] Start: 10-05-2019 End: 11-16-2023 Sex Assigned At [facility] Start: 07-28-2023 End: 09-14-2023 Tobacco smoking status Ex-smoker (finding) [facility] [place] End: 10-11-2014 History of tobacco use Current smoker [employer] Start: 11-04-2023 Alcohol intake Lifetime non-d sandie (finding) [facility] Frequency of Alcohol Consumption Never [facility] [employer] [facility] Start: 11-04-2023 End: 05-23-2024 Alcohol intake Ex-drinker (finding) [facility] How often to you hav e a drink containing alcohol? Monthly or less [facility] How many standard dr inks containing alcohol do you have on a typical day? 1 or 2 [facility] How often do you hav e 6 or more drinks on 1 occasion? Never [facility] Start: 05-04-2023 Alcohol Comment Caffeine intak e: 2-3 cups per day coffee [facility] Within the last year , have you been afraid of your partner or ex-partner? No [facility] Do you belong to any clubs or organizations such as rastafarian groups, unions, fraternal or athletic groups, or school groups? Yes [facility] Are you now , , , , never or living with a partner? [facility] Do you feel stress - tense, restless, nervous, or anxious, or unable to sleep at night because your mind is troubled all the time - these days [OSQ] Only a little [facility] (I/We) worried wheth er (my/our) food would run out before (I/we) got money to buy more. Never true [facility] Start: 06-26-2024 Tobacco smoking stat [facility] Never smoked tobacco [facility] Do you feel stress - tense, restless, nervous, or anxious, or unable to sleep at night because your mind is troubled all the time - these days [OSQ] Not at all [facility] Start: 06-24-2024 Education [facility] Start: 06-26-2024 Gender identity Identifies as female gender (finding) [facility] Procedure Code Equipment Code Equipment Origin al Text Equipment Identifier Dates Pump Infuse Pain Synchromed Ii 40ml - [id number] Start: 09-24-2017 Functional Status Date Assessment Result Facility 09-14-2023 Functional Status N/A [facility] [place] Clinical Notes 05-01-2023 to 07-31-2024 Telephone Encounter - ALVARADO Ramos - 07/31/2024 3:25 PM EDTTelephone Encounter - ALVARADO Ramos - 07/31/2024 3:25 PM EDTTelephone Encounter - ALVARADO Ramos - 07/31/2024 3:23 PM EDT Note Date & Type Note Facility 07-31-2024 Telephone encounter Note OARRS reviewed, Rx sent into patient's pharmacy. [facility] 07-31-2024 Miscellaneous Notes OARRS reviewed, Rx sent into patient's pharmacy. documented in this encounter [facility] 07-31-2024 Telephone encounter Note OARRS reviewed, Rx sent into patient's pharmacy. [facility] 07-31-2024 Miscellaneous Notes OARRS reviewed, Rx sent into patient's pharmacy. documented in this encounter [facility] 07-24-2024 History of Present illness Narrative Associated Problem(s): Depressive disorder (CMS/HCC) Needs to be off of Cymbalta for 3 months due to Tachyphylaxis Consider Rexulti Associated Problem(s): Hyperlipidemia (CMS/HCC) This is a chronic medical condition that is stable since last assessment. No changes in treatment are suggested at this time. Continue Current meds. Associated Problem(s): Encounter for well adult exam without abnormal findings [place] Alcohol consumption No Tobacco Seat Belt use Exercise Regularly No Text Drive Social Accountability Images from the original note were not included. HPI Annual Exam Additional comments: Medication follow up Last A1c was 5.8 Last edited by Amena Suarez MA on 07/24/2024 1:24 PM. Subjective Patient ID: Maranda Davis is a 54 y.o. female who presents for Annual Exam (Medication follow up /Last A1c was 5.8). Pt is here for annual and medication follow up Pt states the duloxetine is no longer working for her , the past couple of months Pt is also having lots of sweating and is getting worse Current Outpatient Medications on File Prior to Visit Medication Sig Dispense Refill amitriptyline (Elavil) 25 MG tablet TAKE 1 TABLET BY MOUTH EVERY DAY AT BEDTIME FOR 90 DAYS 100 tablet 3 celecoxib (CeleBREX) 200 MG capsule Take 200 mg by mouth in the morning. clonazePAM (KlonoPIN) 1 MG tablet TAKE 1 TABLET BY MOUTH EVERYDAY AT BEDTIME 30 tablet 0 DULoxetine (Cymbalta) [address] capsule TAKE 2 CAPSULES BY MOUTH EVERY DAY 200 capsule 3 famotidine (Pepcid) 40 MG tablet Take 1 tablet (40 mg) by mouth in the morning. 30 tablet 5 furosemide (Lasix) 40 MG tablet Take 1 tablet (40 mg) by mouth in the morning and 1 tablet (40 mg) before bedtime. 60 tablet 0 lidocaine (Lidoderm) 5 % patch APPLY 1 PATCH TO SKIN ONCE A DAY NEEDED FOR PAIN loratadine (Claritin) 10 MG tablet Take 10 mg by mouth in the morning. modafinil (Provigil) 200 MG tablet Take 1 tablet (200 mg) by mouth in the morning. 30 tablet 0 omeprazole (PriLOSEC) [address] capsule Take 1 capsule (40 mg) by mouth in the morning. Take before meals. Do not crush or chew. Take 30 minutes prior to breakfast meal.. 90 capsule 3 Potassium Gluconate ER 595 MG tablet controlled-release Take by mouth Daily pregabalin (Lyrica) 200 MG capsule Take 1 capsule (200 mg) by mouth in the morning and 1 capsule (200 mg) in the evening and 1 capsule (200 mg) before bedtime. 90 capsule 5 tiZANidine (Zanaflex) 4 MG tablet Take 1 tablet (4 mg) by mouth every 8 (eight) hours if needed for muscle spasms 90 tablet 0 traMADol (Ultram) 50 MG tablet Take 1 tablet (50 mg) by mouth every 6 (six) hours if needed for severe pain 120 tablet 0 traZODone (Desyrel) 50 MG tablet TAKE 1 TABLET BY MOUTH EVERYDAY AT BEDTIME 30 tablet 13 [DISCONTINUED] clonazePAM (KlonoPIN) 1 MG tablet TAKE 1 TABLET BY MOUTH EVERYDAY AT BEDTIME 30 tablet 0 [DISCONTINUED] estradiol (Estrace) 2 MG tablet TAKE 1 TABLET BY MOUTH EVERY DAY 30 tablet 6 [DISCONTINUED] oxybutynin XL (Ditropan-XL) 15 MG 24 hr tablet Take 1 tablet (15 mg) by mouth in the morning. 100 tablet 0 No current facility-administered medications on file prior to visit. I have reviewed and reconciled the history and medication list with the patient today. Allergies Allergen Reactions Hydromorphone Other Reaction(s): Unknown Social History Tobacco Use Smoking status: Former Current packs/day: 0.00 Types: Cigarettes Quit date: 2014 Years since quittin.7 Smokeless tobacco: Never Vaping Use Vaping status: Never Used Substance Use Topics Alcohol use: Not Currently Comment: Caffeine intake: 2-3 cups per day coffee Drug use: Never Family History Problem Relation Name Age of Onset No Known Problems Mother Other (epilepsy) Father Heart disease Father Fibromyalgia Sister Other (DDD) Sister No Known Problems Brother No Known Problems Daughter No Known Problems Son Colon cancer Paternal Grandmother Past Medical History: Diagnosis Date Allergic rhinitis cause unspecified Back pain 2009 Blood in urine Cholelithiasis 2013 Chronic back pain 2010 Chronic fatigue 2002 Colitis 2015 Colitis 2012 DM (diabetes mellitus) (CMS/[facility]) 2011 Diabetes mellitus, type 2 without comp [place] infection 2010 Esophageal reflux Fibromyalgia 1992 Gestational diabetes 2006 History of Doppler ultrasound 07/07/2021 Venous Doppler was negative History of Holter monitoring 01/28/2019 NSR Lupus (CMS/HCC) Lyme disease 2013 Lyme Disease(2013) +strep + mycoplasma Mucocele, buccal ANJU on CPAP Past Surgical History: Procedure Laterality Date BACK SURGERY 12/26/2014 L3-S1 Dr. Correa BACK SURGERY 02/2019 Dr. Silva with Repeat back Surgery, Cage and Stabilization BUNIONECTOMY SECTION, LOW TRANSVERSE 2006 CHOLECYSTECTOMY 2013 CYSTOSCOPY 2013 EGD 05/2014 EGD/colonoscopy HARDWARE REMOVAL HERNIA REPAIR inguinal HYSTERECTOMY 2010 LAVH/ BSO KNEE SURGERY 10/08/2021 Arthroscopic partial medial meniscectomy right knee, arthroscopic abrasion chondroplasty LAB [facility] COLON CANCER SCREEN 06/09/2022 Neg LUMBAR FUSION 11/18/2016 L1-L2 Dr. silva OTHER SURGICAL HISTORY Back Injections, Back pain OTHER SURGICAL HISTORY 09/2015 Placement of morphine pump OTHER SURGICAL HISTORY 2006 Tubal reversal-[facility] OTHER SURGICAL HISTORY Elective AB - age 17 SPINAL CORD STIMULATOR IMPLANT 2013 Stimulator implant-Back pain-removed 2017 SPINAL FUSION 2011 TONSILLECTOMY TOTAL HIP ARTHROPLASTY Left 05/13/2021 Dr. Silva TOTAL KNEE ARTHROPLASTY Right 12/01/2023 Dr Calvert TRIGGER FINGER RELEASE Right 10/18/[address] Calvert Visit Vitals BP 98/62 Pulse 66 Ht 5' 10 Wt 210 lb LMP (LMP Unknown) Comment: Hysterectomy 2010 SpO2 93% BMI 30.13 kg/m OB Status Hysterectomy Smoking Status Former BSA 2.17 m Review of Systems Constitutional: Negative for chills, fatigue, fever and unexpected weight change. Respiratory: Negative for cough. Cardiovascular: Negative for chest pain. Gastrointestinal: Negative for abdominal pain, blood in stool, constipation, diarrhea, nausea and vomiting. Genitourinary: Negative for dysuria, enuresis, frequency and hematuria. Musculoskeletal: Negative for back pain. Neurological: Negative for dizziness, tremors, syncope, facial asymmetry and speech difficulty. Psychiatric/Behavioral: Positive for dysphoric mood. Negative for agitation, behavioral problems and confusion. The patient is not nervous/anxious. Objective Physical Exam Constitutional: General: She is not in acute distress. Appearance: Normal appearance. HENT: Head: Normocephalic. Cardiovascular: Rate and Rhythm: Normal rate and regular rhythm. Pulmonary: Effort: Pulmonary effort is normal. No respiratory distress. Breath sounds: Normal breath sounds. Neurological: General: No focal deficit present. Mental Status: She is alert and oriented to person, place, and time. Psychiatric: Mood and Affect: Mood normal. Office Visit on 07/24/2024 Component Date Value Ref Range Status Hemoglobin A1C 07/24/2024 5.6 Final Assessment/Plan Problem List Items Addressed This Visit Depressive disorder (CMS/HCC) Relevant Medications buPROPion SR (Wellbutrin SR) 100 MG 12 hr tablet Hyperlipidemia (CMS/HCC) This is a chronic medical condition that is stable since last assessment. No changes in treatment are suggested at this time. Continue Current meds. Relevant Orders Lipid panel Glucose intolerance (impaired glucose tolerance) Relevant Orders Microalbumin / creatinine urine ratio POCT Glycated hemoglobin, total (Completed) Encounter for well adult exam without abnormal findings - Primary Modest Alcohol consumption No Tobacco Seat Belt use Exercise Regularly No Text Drive Social Accountability Other Visit Diagnoses Annual physical exam Relevant Orders Lipid panel Microalbumin / creatinine urine ratio Encounter for vaccination Relevant Orders Flu vaccine greater than or equal to 3 years old, PF IM (IMM19) (Completed) Encounter for screening mammogram for malignant neoplasm of breast Relevant Orders Bilateral screening mammogram Hot flashes Relevant Medications estrogens, conjugated, (Premarin) 0.625 MG tablet No follow-ups on file. documented in this encounter [facility] 07-20-2024 Telephone encounter Note OARRS reviewed, Rx sent into patient's pharmacy. [facility] 07-20-2024 Miscellaneous Notes OARRS reviewed, Rx sent into patient's pharmacy. documented in this encounter [facility] 06-26-2024 History of Present illness Narrative Maranda Davis 06/26/2024 Diagnoses: 1. Fibromyalgia. 2. Polyarthralgia. Today I saw and evaluated the patient. I personally obtained the larson and critical portions of the history and physical examination. I reviewed the resident's documentation and discussed the patient with the resident. I agree with the resident's medical decision making as documented in the resident's note. Additional findings, impression and plan are as follows: S: This 54-year-old woman was referred because of a positive SASCHA test of 1:80 and diffuse polyarthralgias. She is status post right knee replacement and left hip replacement and has had at least several surgical procedures on her lumbar spine. She currently uses a pain pump for her chronic spinal pain. She complains of swelling of her hands with minimal pain but has stiffness in the morning lasting for at least 1 hour. She also describes pain and swelling in her ankles. She has been taking tramadol intermittently for such symptoms. Other recent symptoms include a an intermittent face rash and photosensitivity. She complains of dry eyes and dry mouth and discoloration of her fingers that could be consistent with Raynaud's phenomenon. She has been diagnosed in the past with fibromyalgia and chronic Lyme disease and indicates that she did have a tick bite many years ago. Family history discloses that her grandmother has rheumatoid arthritis. O: Her blood pressure is 100/62 and her weight is 218 lb. She is ambulating without difficulty. The skin shows no rash today. The hands show minimal tenderness of PIP joints without swelling. MCP joints are asymptomatic and her creel hand strength is normal. Wrists and elbows are asymptomatic. Ankles and feet are currently asymptomatic. A: Her current symptoms and examination seem most consistent with fibromyalgia. In view of her borderline positive SASCHA test and morning stiffness, we will obtain additional appropriate laboratory studies. P: 1. She will obtain autoimmune panel, ESR, CRP, rheumatoid factor, anti CCP today. 2. We discussed fibromyalgia in detail, including the importance of regular exercises. 3. She may use Tylenol as needed for pain in addition to her current medication. 4. She may return for follow-up p.r.n. Nikhil Grewal MD Rheumatology New Visit Note Referring Physician: Referring Provider: Grazyna Worley MD Reason for referral: New patient, establish relationship History of present illness: Maranda Davis is a 54 year old female who presents to [facility] rheumatology clinic for evaluation of positive SASCHA 1:80 nuclear pattern and joint pain PCP Dr. Worley, got her care from [facility], 1 hour from here. Referred here because no rheumatology service available there. Joint pain ongoing for 7 years, knees are the worst, also have hips, and whole back pain. Had total knee replacement in 11/2023 which helped, also had left hip replaced in 2019, had a few back surgeries, last one was in 2014. Hand and elbows are doing okay, fingers occasionally hurt with activities such as opening the jars. Worse in the morning and loosed up a little bit when moves around. Has morning stiffness of knees and ankle for 1-1.5 hours daily, worse in the past 2-3 years. Has bilateral ankle and hand swelling for a few years, worse in the evening, not hurting but feels tight when the swelling is worse, put on furosemide by PCP, helping a little bit. Had SASCHA in 2022 with 1:80 titer, nuclear pattern,had negative RF, CCP, SSA, SSB in 12/2022 Has pain pump (hydromorphone, baclofen) for the back, takes tramadol in the morning, prescribed tizanidine but not taking. No rash now but does get photosensitivity with erythematous rashes on her face as well as arms, no sores in mouth or nose, no fever, no unintentional weight loss, no significant hair loss, some dry eyes and mouth, using eye drops, no chest pain or shortness, no abdominal pain or diarrhea, has constipation, no change in urine. Fingers turn white in cold and returned normal after warming up, not turning purple. Diagnosed of fibromyalgia by PCP in 2009 and diagnosed of Chronic Lyme disease in 2020, not on treatment. 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 Lives with and son. Has 3 children. Paternal grandmother might have RA, son has early onset lupus Pertinent labs and imagines: As above Review of Systems: General [] Fever []night sweats [] Unintentional weight []Gain or []loss Eyes [] dryness [] iritis ENMT [] oral dryness [] Oral or []Nasal ulcers Respiratory [] coughing [] History of pleural effusion Cardiovascular: [] chest pain [] history of []pericardial effusion or []pericarditis Gastrointestinal: [] Dysphagia [] GERD [] Diarrhea Genitourinary [] Urethritis [] Genital ulcers Neurologic [] Paresthesia [] History of seizure Skin [] rashes [] psoriasis [] malar rash [] Reynaud phenomenon [] patchy hair loss Musculoskeletal [] joint pain [] joint swelling [] muscle pain [] muscle weakness Hematologic [] Easy bruising/bleeding [] Leukopenia [] Anemia [] Thrombocytopenia [] History of []DVT or []PE [] History of miscarriage ([] First trimester [] Second trimester) Past Medical History: No past medical history on file. Past Surgical History: No past surgical history on file. Social History: Tobacco: No EtOH: No Occupation: Used to worked in [employer] at [employer], retired now Social History Socioeconomic History Marital status: Highest education level: Some college, no degree Tobacco Use Smoking status: Never Smokeless tobacco: Never Social Determinants of Health Financial Resource Strain: Low Risk (06/24/2024) Overall Financial Resource Strain (CARDIA) Difficulty of Paying Living Expenses: Not hard at all Food Insecurity: No Food Insecurity (06/24/2024) Hunger Vital Sign Worried About Running Out of Food in the Last Year: Never true Ran Out of Food in the Last Year: Never true Transportation Needs: No Transportation Needs (06/24/2024) PRAPARE - Transportation Lack of Transportation (Medical): No Lack of Transportation (Non-Medical): No Physical Activity: Insufficiently Active (06/24/2024) Exercise Vital Sign Days of Exercise per Week: 3 days Minutes of Exercise per Session: 40 min Stress: No Stress Concern Present (06/24/2024) [place] [employer] - Occupational Stress Questionnaire Feeling of Stress : Not at all Social Connections: Socially Integrated (06/24/2024) Social Connection and Isolation Panel [NHANES] Frequency of Communication with Friends and Family: More than three times a week Frequency of Social Gatherings with Friends and Family: Three times a week Attends Mandaen Services: More than 4 times per year Active Member of Clubs or Organizations: Yes Attends Club or Organization Meetings: More than 4 times per year Marital Status: Intimate Partner Violence: Not At Risk (06/24/2024) Humiliation, Afraid, Rape, and Kick questionnaire Fear of Current or Ex-Partner: No Emotionally Abused: No Physically Abused: No Sexually Abused: No Family History: [x] Rheumatoid arthritis [] Psoriasis [] Psoriatic arthritis [x] Lupus [] Gout [] Thyroid conditions [] Ulcerative colitis [] Crohn's disease [] Osteoporosis [] Osteoarthritis [] Arthritis, unspecified No family history on file. Medications: Current Outpatient Medications on File Prior to Visit Medication Sig Dispense Refill trazodone (DESYREL) 50 mg tablet Take 50 mg by mouth at bedtime. Potassium Gluconate 595 MG TBCR Take by mouth daily. tramadol (ULTRAM) 50 MG tablet Take 50 mg by mouth every 6 hours as needed. clonazePAM (KlonoPIN) 1 MG tablet Take 1 Tablet by mouth at bedtime. tizanidine (ZANAFLEX) 4 MG tablet TAKE 1 TABLET BY MOUTH THREE TIMES A DAY NEEDED FOR MUSCLE SPASM modafinil (PROVIGIL) 200 MG tablet Take 200 mg by mouth every morning. pregabalin (LYRICA) 200 MG capsule TAKE 1 CAPSULE BY MOUTH IN THE MORNING AND 1 CAPSULE IN THE EVENING AND 1 CAPSULE BEFORE BEDTIME. lidocaine (LIDODERM) 5 % patch APPLY 1 PATCH TO SKIN ONCE A DAY NEEDED FOR PAIN furosemide (LASIX) 40 MG tablet Take 40 mg by mouth 2 times daily. estradiol (ESTRACE) 2 MG tablet Take 2 mg by mouth daily. duloxetine (CYMBALTA) 60 MG capsule Take 120 mg by mouth daily. celecoxib (CeleBREX) 200 MG capsule Take 200 mg by mouth daily. omeprazole (PRILOSEC) 40 MG capsule Take 40 mg by mouth. oxybutynin (DITROPAN XL) 15 MG XL tablet Take 15 mg by mouth every morning. No current facility-administered medications on file prior to visit. PHYSICAL EXAMINATION: Vitals: 06/26/24 0935 BP: 100/62 Pulse: 55 Temp: 98.3 F (36.8 C) General: no acute distress Eyes: no photophobia, sclerae without injunction or icterus Respiratory: nonlabored breathing Cardiovascular: no cyanosis Skin: warm and dry, without rashes or lesions DETAILED JOINT EXAMINATION: Neck: Full ROM without pain. Shoulders: Full ROM without pain, No swelling, warmth or tenderness. Elbows: Full ROM without pain, No swelling, warmth or tenderness. Wrists: Full ROM without pain, No swelling, warmth or tenderness. Hands: Has hand swelling involving most of the fingers MCP: 2th to 4th MCPs bilateral hands with tenderness PIP: 2th and 3rd PIPs with tenderness bilateral hands DIP: No swelling, warmth or tenderness. Hips: Full ROM. No malalignment. Knees: Full ROM, right knee s/p total knee replacement Ankles: Bilateral ankle tenderness, trace pitting edema from ankle to lower smallwood Toes: Mild tenderness to MTP squeeze LABS: No results found for this or any previous visit (from the past 45010 hour(s)). No results found for this or any previous visit (from the past 8760 hour(s)). Unable to retrieve a serum creatinine No results found for this or any previous visit (from the past 8760 hour(s)). Sed Rate (ESR) (mm/Hr) Date Value 06/26/2024 18 C-Reactive Protein (mg/dL) Date Value 06/26/2024 0.8 (H) No results found for: BFRA , CCPIGG No results found for this or any previous visit (from the past 64895 hour(s)). No results found for this or any previous visit (from the past 67208 hour(s)). No results found for: VITD25 Imaging: N/A ASSESSMENT/PLAN: Maranda Davis is a 54 year old female who presents for chronic polyarthralgia and positive SASCHA (1:80 nuclear). Problem List Items Addressed This Visit None Visit Diagnoses SASCHA positive - Primary Relevant Orders CYCLIC CITRULLINATED PEPTIDE,* RHEUMATOID FACTOR C-REACTIVE PROTEIN (Completed) ERYTHROCYTE SEDIMENTATION RATE (Completed) AUTOIMMUNE MULTIPLEX PANEL Polyarthralgia Relevant Orders CYCLIC CITRULLINATED PEPTIDE,* RHEUMATOID FACTOR C-REACTIVE PROTEIN (Completed) ERYTHROCYTE SEDIMENTATION RATE (Completed) AUTOIMMUNE MULTIPLEX PANEL XR ARTHRITIS SURVEY HAND/WRIST Polyarthralgia Ongoing for 7 years, definitely has osteoarthritis in multiple joints. Unsure if overlapping inflammatory arthritis. Given she has morning stiffness for 1-1.5 hours with some hand swelling would obtain more investigations. Had negative RF and CCP in 2022 Would repeat RF and CCP Obtain ESR and CRP Autoimmune penal Obtain film of hand arthritis survey Follow up if blood work positive Staffed with Dr. Grewal -------- Edu Aguirre MD PGY4 Rheumatology Fellow Patient was identified by name and date of . Violet Duke Patient at risk for falls:No Falls Risk protocol implemented: No documented in this encounter [place] 06-26-2024 Instructions Edu Aguirre MD - 06/26/2024 10:57 AM EDT Blood work and Xray today Overall we have low suspicion of autoimmune conditions but given you are having morning stiffness and pain, we will get blood work checked documented in this encounter [facility] 11-19-2023 Telephone encounter Note OARRS reviewed, Rx sent into patient's pharmacy. [facility] 11-19-2023 Miscellaneous Notes OARRS reviewed, Rx sent into patient's pharmacy. documented in this encounter [facility] 11-12-2023 Telephone encounter Note OARRS reviewed, Rx sent into patient's pharmacy. [facility] 11-12-2023 Miscellaneous Notes OARRS reviewed, Rx sent into patient's pharmacy. documented in this encounter [facility] 11-04-2023 Instructions Joi Powers RN - 11/04/2023 9:45 AM EST Preoperative Education Checklist- Joints/Spine Surgery date: 12/01/23 Surgery time: 1015 a.m. Arrival time: 0815 a.m. Return between 11/22-11/30/23 to [facility] to have your last blood test drawn to check your blood type for your surgery. 1. Bring a photo ID and your insurance card with you the day of surgery. You will check in at the main lobby of the [facility]- registration desk is straight ahead as soon as you walk in. Tell them you are here for surgery. 2. If you have a Living Will/Durable Power of Coverstitch Elastic Attacher for Health Care that is not on file here, please bring a copy the day of surgery. 3. Please shower/tub bath the night before surgery and use wipes as directed. Do not shower the morning of surgery- you will again use wipes when you arrive here at the hospital before getting into your surgical gown. Do not shave the area of your procedure for 2 days prior to your surgery. 4. NO powder, lotion, perfume/cologne, aftershave, make-up, deodorant, or hair products after you have bathed. 5. No nail nicaraguan/acrylic on at least one finger. If you are having a hand, wrist, foot, or leg surgery then ALL nail nicaraguan and artificial/acrylic nails MUST be removed from that hand or foot. 6. Avoid ALL Aspirin and non-steroidal anti-inflammatory drugs (Ibuprofen, Advil, Aleve, Excedrin, Meloxicam, Celebrex, fish/krill oil, etc.) for 7 days prior to surgery as instructed by your surgeon and/or prescribing doctor. Tylenol IS ALLOWED. If you are on Ticlid, Xarelto, Eliquis, Pradaxa, Plavix or Coumadin, please check with your prescribing doctor for instructions for when to stop them. 7. If you use an inhaler, continue to use it routinely. 8. Nothing to eat or drink (not even water, gum, mints, or hard candy!) AFTER midnight prior to your surgery. 7. Take only medications that you are instructed to on the morning of surgery with a TINY SIP OF WATER. 9. Choose a responsible adult that will be able to drive you home when you are discharged from your hospital stay for your surgery- no driving or operating any machinery for 24 hours after surgery. 10. When you dress for your appointment, please wear loose fitting clothing that is appropriate to accommodate your surgical area procedure. BRING WITH YOU ANY DEVICES YOU MAY NEED: GARO hose, ice machine, sling/swath, brace or special shoe, crutches, oversized sup-up or button up shirt, CPAP machine if staying overnight. 11. Do NOT wear jewelry, watches, or any piercings or metal for surgery. 12. Do NOT wear contact lenses for surgery- glasses are okay if needed. 13. The anesthesiologist will talk with you the day of surgery and will ask you to sign a Consent Form. 14. Refrain from smoking or any type of tobacco use for at least 8 hours or marijuana for 24 hours prior to arrival for your surgery. 15. If a GREEN BLOOD band is given to you, please bring it with you for the day of surgery. 16. Notify your surgeon if you develop any illness before your surgery. 17. If you are staying overnight, please DO NOT BRING your home medications with your. 18. If you have any questions prior to surgery, please call the Preadmission Testing office at [phone] Mon.-Fri. 7 a.m.-3 p.m. Leave a voicemail if needed. Pre-Surgery Instructions: Medication Instructions amitriptyline (ELAVIL) 25 mg tablet Stop taking 0 days prior to procedure clonazePAM (KlonoPIN) 1 mg tablet Stop taking 0 days prior to procedure DULoxetine (CYMBALTA) 60 mg capsule Stop taking 0 days prior to procedure estradioL (ESTRACE) 0.5 mg tablet Stop taking 0 days prior to procedure famotidine (PEPCID) 20 mg tablet Take morning of procedure furosemide (LASIX) 20 mg tablet Stop taking 0 days prior to procedure NON FORMULARY Stop taking 0 days prior to procedure pregabalin (LYRICA) 200 mg capsule Stop taking 0 days prior to procedure spironolactone (ALDACTONE) 25 mg tablet Stop taking 0 days prior to procedure tiZANidine (ZANAFLEX) 4 mg tablet Stop taking 0 days prior to procedure traZODone (DESYREL) 50 mg tablet Stop taking 0 days prior to procedure What to Expect Following Your Surgery After surgery you will be in the recovery room for approximately 1 hour before you are moved to your room. Please let your family and visitors know this. You may be in a bed that has a trapeze overhead to assist you with movement while in bed. After surgery you will have a Crespo catheter in place (it is usually removed the first day after surgery after your first round of physical therapy has been completed), foot pumps on for circulation and prevention of blood clots, an IV, and possibly a BOX REPAIRER pump and/or a NERVE BLOCK (both used for pain control). We will have you rate your pain on a scale from 0-10, with 10 being the highest possible pain level. We will NOT be able to get rid of ALL of your pain. We strive to keep you comfortable in the 3-5 range on the pain scale. PLEASE let your nurse know if your pain starts to creep up above a level of 5. We use a combination of IV medications, oral medications, ice, and elevation according to the doctor s orders in order to help keep your pain at a tolerable level. The first 24 hours after surgery are very busy! The doctor orders certain routine medications that are to be given up to every 4 hours along with breathing treatments and vital signs being assessed every 4 through the first night of your surgery in order to make sure that you are progressing as expected after surgery. This often makes it hard to sleep well the first night, but it is necessary to make sure that we are providing you the best care possible. We try to coordinate this care with each department in order to help you get as much uninterrupted sleep as possible. We also have earplugs and eye masks available by request to promote and enhance your sleep time. While here, you may see one of our Hospitalist physicians if your family doctor does not round on patients at [facility] to see you while you are here after surgery. Your orthopedic doctor will be directing all of your care and your discharge, but sometimes they need to consult with primary care/hospitalists in order to better serve you. Having the Hospitalists see you while in the hospital allows your primary care doctor to have more time in their offices, and the hospitalists will be in communication with your primary care doctor with updates on your care. Once discharged from the hospital, you will see your regular primary care physician as directed. While in the hospital you will [facility] who work in the hospital and they will start seeing you the morning after surgery. Therapy from your orthopedic doctor s office will begin seeing you once you are discharged from the hospital- they are not contracted to provide your treatment while you are in the hospital. You may have spoken with a conference planner at your orthopedic doctor s office, but you will still review your discharge plan with our conference planner from here at the hospital in order to make sure that you understand all of your options prior to going home or to a facility. How to Avoid an Infection after Your Surgery Your doctor will give you specific instructions, but remember: -ALWAYS wash hands before caring for your incision. -No picking, scratching, or rubbing your incision. -No creams, lotion, powder, rubbing alcohol or hydrogen peroxide on the incision (can harm the tissue and slow healing). -Your doctor will give you specific instructions for what type of dressing you will need and how often it will need changed for infection purposes. -No tight clothing on incision. -Do not allow anyone to touch your incision unless they are cleaning, checking, or redressing it (be sure they wash their hands first). -No contact of your incision with pets; avoid sleeping with pets. -Take full course of antibiotic if prescribed for you after surgery- do not stop unless directed to by your physician. You may also be given an antibiotic prior to your surgery to help prevent surgical site infections. -Eat a healthy and varied diet including proteins, fruits, and vegetables to help promote wound healing and keep blood sugars under control if you are diabetic. -Smoking slows the healing process by decreasing the amount of oxygen in your blood that is needed for tissue healing. Try to avoid or stop smoking if possible. LOOK at your incision each morning and each night to check the progress of healing. Some soreness, numbness, itching and/or mild bruising around the incision is normal. Call your doctor if you notice any of the following: -Increased redness or hardening around the incision area. -Increased pain at the incision site. -Incision feels hot to the touch. -Swelling or pulling apart of the incision edges. -Yellow or green drainage or foul odor coming from the incision. -Bleeding from the incision (apply pressure as needed). -Fever higher than 101 degrees Fahrenheit for more than 4 hours. SHOWERING: Your doctor will give you specific instructions, but remember: -Be careful getting into and out of the shower. -Showers should be quick (5 minutes or less). -Use a clean washcloth to gently wash your incision with soap and water and pat the area dry with a clean towel. -No re-using wash cloths or towels; get a fresh one to clean your incision. -Do not soak in the bathtub, go swimming or use a hot tub (Jacuzzi), or perform activities where your incision is submerged in water or exposed to any fluids or substances until instructed by your doctor. -If your have the sticky strips (steri-strips) over the incision, it is OK to shower with them. Do not remove them. Let them fall off on their own. If you have a question, call your doctor s office. Go to the follow-up appointment with your doctor. documented in this encounter [employer] 11-04-2023 Miscellaneous Notes Preoperative Education Checklist- Joints/Spine Surgery date: 12/01/23 Surgery time: 1015 a.m. Arrival time: 0815 a.m. Return between 11/22-11/30/23 to [facility] to have your last blood test drawn to check your blood type for your surgery. 1. Bring a photo ID and your insurance card with you the day of surgery. You will check in at the main lobby of the [facility]- registration desk is straight ahead as soon as you walk in. Tell them you are here for surgery. 2. If you have a Living Will/Durable Power of Coverstitch El[employer] Att[employer] for Health Care that is not on file here, please bring a copy the day of surgery. 3. Please shower/tub bath the night before surgery and use wipes as directed. Do not shower the morning of surgery- you will again use wipes when you arrive here at the hospital before getting into your surgical gown. Do not shave the area of your procedure for 2 days prior to your surgery. 4. NO powder, lotion, perfume/cologne, aftershave, make-up, deodorant, or hair products after you have bathed. 5. No nail nicaraguan/acrylic on at least one finger. If you are having a hand, wrist, foot, or leg surgery then ALL nail nicaraguan and artificial/acrylic nails MUST be removed from that hand or foot. 6. Avoid ALL Aspirin and non-steroidal anti-inflammatory drugs (Ibuprofen, Advil, Aleve, Excedrin, Meloxicam, Celebrex, fish/krill oil, etc.) for 7 days prior to surgery as instructed by your surgeon and/or prescribing doctor. Tylenol IS ALLOWED. If you are on Ticlid, Xarelto, Eliquis, Pradaxa, Plavix or Coumadin, please check with your prescribing doctor for instructions for when to stop them. 7. If you use an inhaler, continue to use it routinely. 8. Nothing to eat or drink (not even water, gum, mints, or hard candy!) AFTER midnight prior to your surgery. 7. Take only medications that you are instructed to on the morning of surgery with a TINY SIP OF WATER. 9. Choose a responsible adult that will be able to drive you home when you are discharged from your hospital stay for your surgery- no driving or operating any machinery for 24 hours after surgery. 10. When you dress for your appointment, please wear loose fitting clothing that is appropriate to accommodate your surgical area procedure. BRING WITH YOU ANY DEVICES YOU MAY NEED: GARO hose, ice machine, sling/swath, brace or special shoe, crutches, oversized sup-up or button up shirt, CPAP machine if staying overnight. 11. Do NOT wear jewelry, watches, or any piercings or metal for surgery. 12. Do NOT wear contact lenses for surgery- glasses are okay if needed. 13. The anesthesiologist will talk with you the day of surgery and will ask you to sign a Consent Form. 14. Refrain from smoking or any type of tobacco use for at least 8 hours or marijuana for 24 hours prior to arrival for your surgery. 15. If a GREEN BLOOD band is given to you, please bring it with you for the day of surgery. 16. Notify your surgeon if you develop any illness before your surgery. 17. If you are staying overnight, please DO NOT BRING your home medications with your. 18. If you have any questions prior to surgery, please call the Preadmission Testing office at [phone] Mon.-Fri. 7 a.m.-3 p.m. Leave a voicemail if needed. Pre-Surgery Instructions: Medication Instructions amitriptyline (ELAVIL) 25 mg tablet Stop taking 0 days prior to procedure clonazePAM (KlonoPIN) 1 mg tablet Stop taking 0 days prior to procedure DULoxetine (CYMBALTA) 60 mg capsule Stop taking 0 days prior to procedure estradioL (ESTRACE) 0.5 mg tablet Stop taking 0 days prior to procedure famotidine (PEPCID) 20 mg tablet Take morning of procedure furosemide (LASIX) 20 mg tablet Stop taking 0 days prior to procedure NON FORMULARY Stop taking 0 days prior to procedure pregabalin (LYRICA) 200 mg capsule Stop taking 0 days prior to procedure spironolactone (ALDACTONE) 25 mg tablet Stop taking 0 days prior to procedure tiZANidine (ZANAFLEX) 4 mg tablet Stop taking 0 days prior to procedure traZODone (DESYREL) 50 mg tablet Stop taking 0 days prior to procedure What to Expect Following Your Surgery After surgery you will be in the recovery room for approximately 1 hour before you are moved to your room. Please let your family and visitors know this. You may be in a bed that has a trapeze overhead to assist you with movement while in bed. After surgery you will have a Crespo catheter in place (it is usually removed the first day after surgery after your first round of physical therapy has been completed), foot pumps on for circulation and prevention of blood clots, an IV, and possibly a BOX REPAIRER pump and/or a NERVE BLOCK (both used for pain control). We will have you rate your pain on a scale from 0-10, with 10 being the highest possible pain level. We will NOT be able to get rid of ALL of your pain. We strive to keep you comfortable in the 3-5 range on the pain scale. PLEASE let your nurse know if your pain starts to creep up above a level of 5. We use a combination of IV medications, oral medications, ice, and elevation according to the doctor s orders in order to help keep your pain at a tolerable level. The first 24 hours after surgery are very busy! The doctor orders certain routine medications that are to be given up to every 4 hours along with breathing treatments and vital signs being assessed every 4 through the first night of your surgery in order to make sure that you are progressing as expected after surgery. This often makes it hard to sleep well the first night, but it is necessary to make sure that we are providing you the best care possible. We try to coordinate this care with each department in order to help you get as much uninterrupted sleep as possible. We also have earplugs and eye masks available by request to promote and enhance your sleep time. While here, you may see one of our Hospitalist physicians if your family doctor does not round on patients at [facility] to see you while you are here after surgery. Your orthopedic doctor will be directing all of your care and your discharge, but sometimes they need to consult with primary care/hospitalists in order to better serve you. Having the Hospitalists see you while in the hospital allows your primary care doctor to have more time in their offices, and the hospitalists will be in communication with your primary care doctor with updates on your care. Once discharged from the hospital, you will see your regular primary care physician as directed. While in the hospital you will receive physical therapy from [facility] physical therapists who work in the hospital and they will start seeing you the morning after surgery. Therapy from your orthopedic doctor s office will begin seeing you once you are discharged from the hospital- they are not contracted to provide your treatment while you are in the hospital. You may have spoken with a conference planner at your orthopedic doctor s office, but you will still review your discharge plan with our conference planner from here at the hospital in order to make sure that you understand all of your options prior to going home or to a facility. How to Avoid an Infection after Your Surgery Your doctor will give you specific instructions, but remember: -ALWAYS wash hands before caring for your incision. -No picking, scratching, or rubbing your incision. -No creams, lotion, powder, rubbing alcohol or hydrogen peroxide on the incision (can harm the tissue and slow healing). -Your doctor will give you specific instructions for what type of dressing you will need and how often it will need changed for infection purposes. -No tight clothing on incision. -Do not allow anyone to touch your incision unless they are cleaning, checking, or redressing it (be sure they wash their hands first). -No contact of your incision with pets; avoid sleeping with pets. -Take full course of antibiotic if prescribed for you after surgery- do not stop unless directed to by your physician. You may also be given an antibiotic prior to your surgery to help prevent surgical site infections. -Eat a healthy and varied diet including proteins, fruits, and vegetables to help promote wound healing and keep blood sugars under control if you are diabetic. -Smoking slows the healing process by decreasing the amount of oxygen in your blood that is needed for tissue healing. Try to avoid or stop smoking if possible. LOOK at your incision each morning and each night to check the progress of healing. Some soreness, numbness, itching and/or mild bruising around the incision is normal. Call your doctor if you notice any of the following: -Increased redness or hardening around the incision area. -Increased pain at the incision site. -Incision feels hot to the touch. -Swelling or pulling apart of the incision edges. -Yellow or green drainage or foul odor coming from the incision. -Bleeding from the incision (apply pressure as needed). -Fever higher than 101 degrees Fahrenheit for more than 4 hours. SHOWERING: Your doctor will give you specific instructions, but remember: -Be careful getting into and out of the shower. -Showers should be quick (5 minutes or less). -Use a clean washcloth to gently wash your incision with soap and water and pat the area dry with a clean towel. -No re-using wash cloths or towels; get a fresh one to clean your incision. -Do not soak in the bathtub, go swimming or use a hot tub (Jacuzzi), or perform activities where your incision is submerged in water or exposed to any fluids or substances until instructed by your doctor. -If your have the sticky strips (steri-strips) over the incision, it is OK to shower with them. Do not remove them. Let them fall off on their own. If you have a question, call your doctor s office. Go to the follow-up appointment with your doctor. CHG wipes and surgical instructions reviewed. Patient verbalized understanding. Dr Abreu, anesthesia, came in and spoke with patient regarding her pain pump and surgery. Will need a general anesthesia verses a spinal due to her pump in place and back surgery with cages, rods, and screws in place. documented in this encounter [facility] [employer] 11-04-2023 Nurse Note Preoperative Education Checklist- Joints/Spine Surgery date: 12/01/23 Surgery time: 1015 a.m. Arrival time: 0815 a.m. Return between 11/22-11/30/23 to [facility] to have your last blood test drawn to check your blood type for your surgery. 1. Bring a photo ID and your insurance card with you the day of surgery. You will check in at the main lobby of the [facility]- registration desk is straight ahead as soon as you walk in. Tell them you are here for surgery. 2. If you have a Living Will/Durable Power of Coverstitch El[employer] Attacher for Health Care that is not on file here, please bring a copy the day of surgery. 3. Please shower/tub bath the night before surgery and use wipes as directed. Do not shower the morning of surgery- you will again use wipes when you arrive here at the hospital before getting into your surgical gown. Do not shave the area of your procedure for 2 days prior to your surgery. 4. NO powder, lotion, perfume/cologne, aftershave, make-up, deodorant, or hair products after you have bathed. 5. No nail nicaraguan/acrylic on at least one finger. If you are having a hand, wrist, foot, or leg surgery then ALL nail nicaraguan and artificial/acrylic nails MUST be removed from that hand or foot. 6. Avoid ALL Aspirin and non-steroidal anti-inflammatory drugs (Ibuprofen, Advil, Aleve, Excedrin, Meloxicam, Celebrex, fish/krill oil, etc.) for 7 days prior to surgery as instructed by your surgeon and/or prescribing doctor. Tylenol IS ALLOWED. If you are on Ticlid, Xarelto, Eliquis, Pradaxa, Plavix or Coumadin, please check with your prescribing doctor for instructions for when to stop them. 7. If you use an inhaler, continue to use it routinely. 8. Nothing to eat or drink (not even water, gum, mints, or hard candy!) AFTER midnight prior to your surgery. 7. Take only medications that you are instructed to on the morning of surgery with a TINY SIP OF WATER. 9. Choose a responsible adult that will be able to drive you home when you are discharged from your hospital stay for your surgery- no driving or operating any machinery for 24 hours after surgery. 10. When you dress for your appointment, please wear loose fitting clothing that is appropriate to accommodate your surgical area procedure. BRING WITH YOU ANY DEVICES YOU MAY NEED: GARO hose, ice machine, sling/swath, brace or special shoe, crutches, oversized sup-up or button up shirt, CPAP machine if staying overnight. 11. Do NOT wear jewelry, watches, or any piercings or metal for surgery. 12. Do NOT wear contact lenses for surgery- glasses are okay if needed. 13. The anesthesiologist will talk with you the day of surgery and will ask you to sign a Consent Form. 14. Refrain from smoking or any type of tobacco use for at least 8 hours or marijuana for 24 hours prior to arrival for your surgery. 15. If a GREEN BLOOD band is given to you, please bring it with you for the day of surgery. 16. Notify your surgeon if you develop any illness before your surgery. 17. If you are staying overnight, please DO NOT BRING your home medications with your. 18. If you have any questions prior to surgery, please call the Preadmission Testing office at [phone] Mon.-Fri. 7 a.m.-3 p.m. Leave a voicemail if needed. Pre-Surgery Instructions: Medication Instructions amitriptyline (ELAVIL) 25 mg tablet Stop taking 0 days prior to procedure clonazePAM (KlonoPIN) 1 mg tablet Stop taking 0 days prior to procedure DULoxetine (CYMBALTA) 60 mg capsule Stop taking 0 days prior to procedure estradioL (ESTRACE) 0.5 mg tablet Stop taking 0 days prior to procedure famotidine (PEPCID) 20 mg tablet Take morning of procedure furosemide (LASIX) 20 mg tablet Stop taking 0 days prior to procedure NON FORMULARY Stop taking 0 days prior to procedure pregabalin (LYRICA) 200 mg capsule Stop taking 0 days prior to procedure spironolactone (ALDACTONE) 25 mg tablet Stop taking 0 days prior to procedure tiZANidine (ZANAFLEX) 4 mg tablet Stop taking 0 days prior to procedure traZODone (DESYREL) 50 mg tablet Stop taking 0 days prior to procedure What to Expect Following Your Surgery After surgery you will be in the recovery room for approximately 1 hour before you are moved to your room. Please let your family and visitors know this. You may be in a bed that has a trapeze overhead to assist you with movement while in bed. After surgery you will have a Crespo catheter in place (it is usually removed the first day after surgery after your first round of physical therapy has been completed), foot pumps on for circulation and prevention of blood clots, an IV, and possibly a BOX REPAIRER pump and/or a NERVE BLOCK (both used for pain control). We will have you rate your pain on a scale from 0-10, with 10 being the highest possible pain level. We will NOT be able to get rid of ALL of your pain. We strive to keep you comfortable in the 3-5 range on the pain scale. PLEASE let your nurse know if your pain starts to creep up above a level of 5. We use a combination of IV medications, oral medications, ice, and elevation according to the doctor s orders in order to help keep your pain at a tolerable level. The first 24 hours after surgery are very busy! The doctor orders certain routine medications that are to be given up to every 4 hours along with breathing treatments and vital signs being assessed every 4 through the first night of your surgery in order to make sure that you are progressing as expected after surgery. This often makes it hard to sleep well the first night, but it is necessary to make sure that we are providing you the best care possible. We try to coordinate this care with each department in order to help you get as much uninterrupted sleep as possible. We also have earplugs and eye masks available by request to promote and enhance your sleep time. While here, you may see one of our Hospitalist physicians if your family doctor does not round on patients at [facility] to see you while you are here after surgery. Your orthopedic doctor will be directing all of your care and your discharge, but sometimes they need to consult with primary care/hospitalists in order to better serve you. Having the Hospitalists see you while in the hospital allows your primary care doctor to have more time in their offices, and the hospitalists will be in communication with your primary care doctor with updates on your care. Once discharged from the hospital, you will see your regular primary care physician as directed. While in the hospital you will receive physical therapy from [facility] physical therapists who work in the hospital and they will start seeing you the morning after surgery. Therapy from your orthopedic doctor s office will begin seeing you once you are discharged from the hospital- they are not contracted to provide your treatment while you are in the hospital. You may have spoken with a conference planner at your orthopedic doctor s office, but you will still review your discharge plan with our conference planner from here at the hospital in order to make sure that you understand all of your options prior to going home or to a facility. How to Avoid an Infection after Your Surgery Your doctor will give you specific instructions, but remember: -ALWAYS wash hands before caring for your incision. -No picking, scratching, or rubbing your incision. -No creams, lotion, powder, rubbing alcohol or hydrogen peroxide on the incision (can harm the tissue and slow healing). -Your doctor will give you specific instructions for what type of dressing you will need and how often it will need changed for infection purposes. -No tight clothing on incision. -Do not allow anyone to touch your incision unless they are cleaning, checking, or redressing it (be sure they wash their hands first). -No contact of your incision with pets; avoid sleeping with pets. -Take full course of antibiotic if prescribed for you after surgery- do not stop unless directed to by your physician. You may also be given an antibiotic prior to your surgery to help prevent surgical site infections. -Eat a healthy and varied diet including proteins, fruits, and vegetables to help promote wound healing and keep blood sugars under control if you are diabetic. -Smoking slows the healing process by decreasing the amount of oxygen in your blood that is needed for tissue healing. Try to avoid or stop smoking if possible. LOOK at your incision each morning and each night to check the progress of healing. Some soreness, numbness, itching and/or mild bruising around the incision is normal. Call your doctor if you notice any of the following: -Increased redness or hardening around the incision area. -Increased pain at the incision site. -Incision feels hot to the touch. -Swelling or pulling apart of the incision edges. -Yellow or green drainage or foul odor coming from the incision. -Bleeding from the incision (apply pressure as needed). -Fever higher than 101 degrees Fahrenheit for more than 4 hours. SHOWERING: Your doctor will give you specific instructions, but remember: -Be careful getting into and out of the shower. -Showers should be quick (5 minutes or less). -Use a clean washcloth to gently wash your incision with soap and water and pat the area dry with a clean towel. -No re-using wash cloths or towels; get a fresh one to clean your incision. -Do not soak in the bathtub, go swimming or use a hot tub (Jacuzzi), or perform activities where your incision is submerged in water or exposed to any fluids or substances until instructed by your doctor. -If your have the sticky strips (steri-strips) over the incision, it is OK to shower with them. Do not remove them. Let them fall off on their own. If you have a question, call your doctor s office. Go to the follow-up appointment with your doctor. [facility] 11-04-2023 Nurse Note G wipes and surgical instructions reviewed. Patient verbalized understanding. Dr Abreu, anesthesia, came in and spoke with patient regarding her pain pump and surgery. Will need a general anesthesia verses a spinal due to her pump in place and back surgery with cages, rods, and screws in place. [facility] 10-12-2023 Note [id number] [facility] 10-12-2023 Note [id number] [facility] 10-12-2023 Hospital Discharge instructions Patient Education 10/12/2023 08:50:09 EU - Cystoscopy Discharge Instructions (CUSTOM) Cystoscopy Voiding after the procedure: there may be some pain, burning, urgency, frequency and blood tinged urine following the procedure. These symptoms usually resolve within 2-5 days. Drink the amount of fluid it takes to keep the urine pink to yellow or clear in color. Drinking enough water and fluids will help to ease any discomfort after your procedure. If you are having problems that seem out of the ordinary, please call. If unable to contact your physician and you feel it is an emergency, go to the nearest emergency room or call 911 Diet you may resume your normal diet. Activity you may resume your normal activities Call if you have a fever over 100 degrees. Follow Up Care 10/05/2023 13:52:02 With:Kavon SANTANA Address: [facility] [address] [place] [address] [facility] (1) When: Unknown Comments:Call for any problems. [facility] 10-12-2023 Note Custom Cystoscopy ? Voiding after the procedure: there may be some pain, burning, urgency, frequency and blood tinged urine following the procedure. These symptoms usually resolve within 2-5 days. Drink the amount of fluid it takes to keep the urine pink to yellow or clear in color. Drinking enough water and fluids will help to ease any discomfort after your procedure. ? If you are having problems that seem out of the ordinary, please call. ? If unable to contact your physician and you feel it is an emergency, go to the nearest emergency room or call 911 ? Diet ? you may resume your normal diet. ? Activity ? you may resume your normal activities ? Call if you have a fever over 100 degrees. [facility] 09-14-2023 Evaluation + Plan note Diagnostic Tests PendingUrine Cytology ([facility]) 09/14/23 [facility] 09-14-2023 Note Chief Complaint New Pt. HPI Staff Evaluation requested by Krystal CHILDERS due to Hematuria on multiple UA's. Pt is a new pt. Last seen in our office by JERRI 07/14/13 for a Cysto/UD due to Gross Hematuria & Chronic Cystitis. *Per referral papers, pt is taking Oxybutynin 10mg QD. UA 05/12/23 TRACE blood UA 06/21/23 + Blood UA 07/14/23 + Blood No recent imaging of relevance on [facility] 12/15/22 BUN 19 Crea 0.79 eGFR 91 Dysuria: Pt. states occasionally will have a little spasm Incomplete bladder emptying: yes, PVR 0mL Hematuria: Pt. states she has not seen gross hematuria, only showing on UA Frequency: about every 3-4 hours Urgency: occasionally Nocturia: 0-1x Stream: occasionally will have a weak stream, Pt. having hesitancy Post void dripping: yes Wearing pads/ Depends: no Urge incontinence: occasionally if Pt. waits to long Stress incontinence: yes Incontinence without Sensory Awareness: no Abdominal pain: no Flank pain: no History of Present Illness staff HPI reviewed and agree. Review of Systems PHQ Score Initial Depression Screen Score: 0 SCORE no fever, chills, malaise, myalgia. no rash/lesions. no chest pain, palpitations, or SOB. no abdominal pain, nausea, vomiting. 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 Last seen in office 07/14/[address] Pulido 12/15/22 - BUN 19, Cr 0.79. ICIQ-SF 8-9. 1. Asymptomatic microscopic hematuria (R31.21: Asymptomatic microscopic hematuria) S/p Cysto 07/14/13. Neg FISH/Cytol 07/04/13. UCx 05/01/23 - E. coli UA 05/12/23 - trace blood 06/21/23 - positive blood 07/14/23 - positive blood 09/14/23 - trace-intact blood AUA microhematuria risk assessment: age FM 50-59, M 40-59 : intermediate smoking hx >30 pack years : high additional risk factors : irritative LUTS yes, new onset/recent changes family hx cancer no occupational exposure no hx chronic indwelling foreign body in urinary tract no Denies gross hematuria. Discussed options. The patient is aware that a distinct etiology of the hematuria may not be clear upon conclusion of the workup. Will initiate repeat hematuria workup to include upper urinary tract imaging, as well as possible evaluation of the urinary cells with urine cytology and a FISH test. A cystoscopy will be scheduled to rule out lower urinary tract pathology. The rationale for this workup has been discussed, and all questions have been answered. -Will schedule Cysto with possible UD. The procedure risks, benefits, details, and treatment alternatives have been discussed with the patient. These include bleeding, infection, recurrent scar in over 50%, need for repeat dilation or other procedures, no symptom relief with dilation, among others. Full informed consent has been obtained. Will order Local anesthesia. -CT scan @ [facility] [place] -urine today sent for cytology 2. Urinary hesitancy (R39.11: Hesitancy of micturition) Does not feel she empties completely. PVR today 0cc. Has been taking Oxybutynin ER 10mg per external provider for sweating/hot flashes for years. However for the past 6-7 mos she has had complications with hesitancy 2-3x/day. States she has to strain when she voids. LINING FINISHER had her try taking med every other day and then every third day but her hot flashes came back and it was intolerable. Discussed she may have a urethral stricture that is causing difficulty with emptying rather than the medication since she's been on the med for so long. Advised pt this will be evaluated at time of cysto and can be dilated if found. Discussed alternative option, such as trying lower dose of Oxybutynin ER 5mg for a couple weeks in the meantime as an experiment (may tolerate this better than the previous titrate plan). -Start lower dose of Oxybutynin 5mg ER x 2 weeks. if tolerates dose reduction pt will call and we will provide refills. if does not tolerate dose reduction, pt will remain on 10mg ER daily. -Sched cysto. See #1. 3. [place] (stress urinary incontinence, female) (N39.3: Stress incontinence (female) (male)) Admits she leaks with activity. LINING FINISHER discussed bladder sling with her but did not mention any cystocele PO hysterectomy. Not bothersome enough to warrant surgical tx per pt. 4. Former smoker (Z87.891: Personal history of nicotine dependence) Started smoking at age 13, quit in 2014. Smoked 1-1.5 PPD. total >30 pack yrs. See #1. Follow-up With When Contact Information KATIA RASHID PA-C, URL [address] [place] [address] 4 (more content not included)... [facility] Comment on above: Result Comment: Elec tronically Signed By: KATIA RASHID PA-C\.br\Date and Time Signed: 09/14/23 10:45 EST\.br\Electronically Co-Signed By: Genet Hernandez\.br\Date and Time Co-Signed: 09/14/23 10:32 EST 09-14-2023 Hospital Discharge instructions Patient Education 09/14/2023 10:25:19 Hematuria, Adult Hematuria, Adult Hematuria is blood in the urine. Blood may be visible in the urine, or it may be identified with a test. This condition can be caused by infections of the bladder, urethra, kidney, or prostate. Other possible causes include: Kidney stones. Cancer of the urinary tract. Too much calcium in the urine. Conditions that are passed from parent to child (inherited conditions). Exercise that requires a lot of energy. Infections can usually be treated with medicine, and a kidney stone usually will pass through your urine. If neither of these is the cause of your hematuria, more tests may be needed to identify the cause of your symptoms. It is very important to tell your health care provider about any blood in your urine, even if it is painless or the blood stops without treatment. Blood in the urine, when it happens and then stops and then happens again, can be a symptom of a very serious condition, including cancer. There is no pain in the initial stages of many urinary cancers. Follow these instructions at home: Medicines Take fhlx-jvz-fbchmcd and prescription medicines only as told by your health care provider. If you were prescribed an antibiotic medicine, take it as told by your health care provider. Do not stop taking the antibiotic even if you start to feel better. Eating and drinking Drink enough fluid to keep your urine pale yellow. It is recommended that you drink 3 4 quarts (2.8 3.8 L) a day. If you have been diagnosed with an infection, drinking cranberry juice in addition to large amounts of water is recommended. Avoid caffeine, tea, and carbonated beverages. These tend to irritate the bladder. Avoid alcohol because it may irritate the prostate (in males). General instructions If you have been diagnosed with a kidney stone, follow your health care provider's instructions about straining your urine to catch the stone. Empty your bladder often. Avoid holding urine for long periods of time. If you are female: ?After a bowel movement, wipe from front to back and use each piece of toilet paper only once. ?Empty your bladder before and after sex. Pay attention to any changes in your symptoms. Tell your health care provider about any changes or any new symptoms. It is up to you to get the results of any tests. Ask your health care provider, or the department that is doing the test, when your results will be ready. Keep all follow-up visits. This is important. Contact a health care provider if: You develop back pain. You have a fever or chills. You have nausea or vomiting. Your symptoms do not improve after 3 days. Your symptoms get worse. Get help right away if: You develop severe vomiting and are unable to take medicine without vomiting. You develop severe pain in your back or abdomen even though you are taking medicine. You pass a large amount of blood in your urine. You pass blood clots in your urine. You feel very weak or like you might faint. You faint. Summary Hematuria is blood in the urine. It has many possible causes. It is very important that you tell your health care provider about any blood in your urine, even if it is painless or the blood stops without treatment. Take xmmb-gxj-xnshbch and prescription medicines only as told by your health care provider. Drink enough fluid to keep your urine pale yellow. This information is not intended to replace advice given to you by your health care provider. Make sure you discuss any questions you have with your health care provider. Document Revised: 05/28/2021 Document Reviewed: 05/28/2021 [employer] Patient Education 2022 [employer]. 09/14/2023 10:25:16 Cystoscopy Cystoscopy Cystoscopy is a procedure that is used to help diagnose and sometimes treat conditions that affect the lower urinary tract. The lower urinary tract includes the bladder and the urethra. The urethra is the tube that drains urine from the bladder. Cystoscopy is done using a thin, tube-shaped instrument with a light and camera at the end (cystoscope). The cystoscope may be hard or flexible, depending on the goal of the procedure. The cystoscope is inserted through the urethra, into the bladder. Cystoscopy may be recommended if you have: Urinary tract infections that keep coming back. Blood in the urine (hematuria). An inability to control when you urinate (urinary incontinence) or an overactive bladder. Unusual cells found in a urine sample. A blockage in the urethra, such as a urinary stone. Painful urination. An abnormality in the bladder found during an intravenous pyelogram (IVP) or CT scan. Cystoscopy may also be done to remove a sample of tissue to be examined under a microscope (biopsy). Tell a health care provider about: Any allergies you have. All medicines you are taking, including vitamins, herbs, eye drops, creams, and perp-dwi-ujjlcrz medicines. Any problems you or family members have had with anesthetic medicines. Any blood disorders you have. Any surgeries you have had. Any medical conditions you have. Whether you are or may be . What are the risks? Generally, this is a safe procedure. However, problems may occur, including: Infection. Bleeding. Allergic reactions to medicines. Damage to other structures or organs. What happens before the procedure? Medicines Ask your health care provider about: Changing or stopping your regular medicines. This is especially important if you are taking diabetes medicines or blood thinners. Taking medicines such as aspirin and ibuprofen. These medicines can thin your blood. Do not take these medicines unless your health care provider tells you to take them. Taking eecx-iml-wzovtzt medicines, vitamins, herbs, and supplements. Tests You may have an exam or testing, such as: X-rays of the bladder, urethra, or kidneys. CT scan of the abdomen or pelvis. Urine tests to check for signs of infection. General instructions Follow instructions from your health care provider about eating or drinking restrictions. Ask your health care provider what steps will be taken to help prevent infection. These steps may include: ?Washing skin with a germ-killing soap. ?Taking antibiotic medicine. Plan to have a responsible adult take you home from the hospital or clinic. What happens during the procedure? You will be given one or more of the following: ?A medicine to help you relax (sedative). ?A medicine to numb the area (local anesthetic). The area around the opening of your urethra will be cleaned. The cystoscope will be passed through your urethra into your bladder. Germ-free (sterile) fluid will flow through the cystoscope to fill your bladder. The fluid will stretch your bladder so that your health care provider can clearly examine your bladder reyes. Your doctor will look at the urethra and bladder. Your doctor may take a biopsy or remove stones. The cystoscope will be removed, and your bladder will be emptied. The procedure may vary among health care providers and hospitals. What can I expect after the procedure? After the procedure, it is common to have: Some soreness or pain in your abdomen and urethra. Urinary symptoms. These include: ?Mild pain or burning when you urinate. Pain should stop within a few minutes after you urinate. This may last for up to 1 week. ?A small amount of blood in your urine for several days. ?Feeling like you need to urinate but producing only a small amount of urine. Follow these instructions at home: Medicines Take wbyi-emu-klhbcog and prescription medicines only as told by your health care provider. If you were prescribed an antibiotic medicine, take it as told by your health care provider. Do not stop taking the antibiotic even if you start to feel better. General instructions Return to your normal activities as told by your health care provider. Ask your health care provider what activities are safe for you. If you were given a sedative during the procedure, it can affect you for several hours. Do not drive or operate machinery until your health care provider says that it is safe. Watch for any blood in your urine. If the amount of blood in your urine increases, call your health care provider. Follow instructions from your health care provider about eating or drinking restrictions. If a tissue sample was removed for testing (biopsy) during your procedure, it is up to you to get your test results. Ask your health care provider, or the department that is doing the test, when your results will be ready. Drink enough fluid to keep your urine pale yellow. Keep all follow-up visits. This is important. Contact a health care provider if: You have pain that gets worse or does not get better with medicine, especially pain when you urinate. You have trouble urinating. You have more blood in your urine. Get help right away if: You have blood clots in your urine. You have abdominal pain. You have a fever or chills. You are unable to urinate. Summary Cystoscopy is a procedure that is used to help diagnose and sometimes treat conditions that affect the lower urinary tract. Cystoscopy is done using a thin, tube-shaped instrument with a light and camera at the end. After the procedure, it is common to have some soreness or pain in your abdomen and urethra. Watch for any blood in your urine. If the amount of blood in your urine increases, call your health care provider. If you were prescribed an antibiotic medicine, take it as told by your health care provider. Do not stop taking the antibiotic even if you start to feel better. This information is not intended to replace advice given to you by your health care provider. Make sure you discuss any questions you have with your health care provider. Document Revised: 06/10/2022 Document Reviewed: 05/09/2021 [employer] Patient Education 2022 [employer]. Follow Up Care 07/14/2023 12:40:45 With:KATIA RASHID PA-C, URL Address: [address] [place] [address] [phone] When: Unknown Comments:deysi angel w/ galileo RODRIGUEZ [facility] 05-01-2023 Evaluation note Encounter Date Diagnosis Assessment Notes Apr, Dysuria (ICD-10 - R30.0) Urinary tract infection material was printed Apr, Urinary tract infection, site not specified (ICD-10 - N39.0) Urinary tract infection (UTI) home care material was printed Drink plenty fluids, get plenty of rest. Take the Macrobid and Pyridium as prescribed until gone. Use the fluticasone nasal spray as prescribed until your sinus symptoms improved. Take Tylenol or Motrin for aches pains or fevers. Continue home medications as prescribed. Follow-up with your family physician if no improvement in 2 to 3 days Apr, Headache (ICD-10 - R51.9) Apr, Hematuria, unspecified (ICD-10 - R31.9) Apr, Acute sinusitis, recurrence not specified, unspecified location (ICD-10 - J01.90) Sinusitis home care material was printed [facility] Other Evaluation + Plan note No data available for this section [facility] evaluation note* Diagnosis Postlaminectomy syndrome, lumbar Postlaminectomy syndrome, lumbar region documented in this encounter [facility] Work Phone: evaluation noteNo assessment information available [facility] Work Phone: Evaluation note* Diagnosis Preop examination- Primary Unspecified pre-operative examination Type 2 diabetes mellitus without complication, unspecified whether meterman insulin use ([facility]) Preop examination Unspecified pre-operative examination Type 2 diabetes mellitus without complication, unspecified whether assisted insulin use ([facility]) [facility] Diagnosis Sleep disturbance Unspecified sleep disturbance [facility] Diagnosis Obstructive sleep apnea Obstructive sleep apnea (adult) (pediatric) [facility]* Diagnosis SASCHA positive- Primary Other and unspecified nonspecific immunological findings Polyarthralgia Pain in joint, multiple sites [facility] Diagnosis SASCHA positive- Primary Other and unspecified nonspecific immunological findings Polyarthralgia Pain in joint, multiple sites Polyarthralgia Pain in joint, multiple sites [facility]* Diagnosis Polyarthralgia Pain in joint, multiple sites [facility]* Diagnosis Sleep disturbance Unspecified sleep disturbance [facility]* Diagnosis Acute cystitis without hematuria- Primary Frequency of urination Urinary frequency Ankle swelling, left- Primary Edema, unspecified type Excessive sweating Generalized hyperhidrosis Urge incontinence of urine Urge incontinence Tension headache Systemic lupus erythematosus, unspecified (CMS/HCC) Unspecified inflammatory spondylopathy, cervical region (CMS/HCC) Type 2 diabetes mellitus without complications (CMS/HCC) Positive SASCHA (antinuclear antibody) Other and unspecified nonspecific immunological findings Encounter for well adult exam without abnormal findings- Primary Hyperlipidemia, unspecified hyperlipidemia type (CMS/HCC) Glucose intolerance (impaired glucose tolerance) Impaired glucose tolerance test Annual physical exam Routine general medical examination at a health care facility Encounter for vaccination Encounter for screening mammogram for malignant neoplasm of breast Depressive disorder ([facility]) Depressive disorder, not elsewhere classified Hot flashes [facility] Diagnosis Acute cystitis without hematuria- Primary Frequency of urination Urinary frequency Ankle swelling, left- Primary Edema, unspecified type Excessive sweating Generalized hyperhidrosis Urge incontinence of urine Urge incontinence Tension headache Systemic lupus erythematosus, unspecified (CMS/HCC) Unspecified inflammatory spondylopathy, cervical region ([facility]) Type 2 diabetes mellitus without complications (CMS/HCC) Positive SASCHA (antinuclear antibody) Other and unspecified nonspecific immunological findings Encounter for well adult exam without abnormal findings- Primary Hyperlipidemia, unspecified hyperlipidemia type (CMS/HCC) Glucose intolerance (impaired glucose tolerance) Impaired glucose tolerance test Annual physical exam Routine general medical examination at a health care facility Encounter for vaccination Encounter for screening mammogram for malignant neoplasm of breast Depressive disorder ([facility]/HCC) Depressive disorder, not elsewhere classified Hot flashes Fibromyalgia Unspecified myalgia and myositis [facility] Diagnosis Acute cystitis without hematuria- Primary Frequency of urination Urinary frequency Ankle swelling, left- Primary Edema, unspecified type Excessive sweating Generalized hyperhidrosis Urge incontinence of urine Urge incontinence Tension headache Systemic lupus erythematosus, unspecified (CMS/HCC) Unspecified inflammatory spondylopathy, cervical region (CMS/HCC) Type 2 diabetes mellitus without complications (CMS/HCC) Positive SASCHA (antinuclear antibody) Other and unspecified nonspecific immunological findings Encounter for well adult exam without abnormal findings- Primary Hyperlipidemia, unspecified hyperlipidemia type (CMS/HCC) Glucose intolerance (impaired glucose tolerance) Impaired glucose tolerance test Annual physical exam Routine general medical examination at a health care facility Encounter for vaccination Encounter for screening mammogram for malignant neoplasm of breast Depressive disorder (CMS/HCC) Depressive disorder, not elsewhere classified Hot flashes Obstructive sleep apnea Obstructive sleep apnea (adult) (pediatric) [facility] - Reported* Type Description Date Medical History type I diabetes Medical History fibromyalgia Medical History lupus Medical History osteoarthritis Medical History DDD/DD Medical History lyme disease Surgical History stimulator implant in back Surgical History pain pump Surgical History stimulator removal Hospitalization History see surgical hx [facility] Other [facility] Discharge instructions No data available for this section [facility] No data available for this section [facility] Summary Purpose Family History Unknown Family Member Name Dates Details Family history of diabetes m ellitus: Sister, Grandfather(V18.0, Z83.3) Status:Active Family history of multiple s clerosis: Sister(V17.2, Z82.0) Status:Active Family history of thyroid di sease: Mother(V18.19, Z83.49) Status:Active Family history of seizures: Father(V19.8, Z84.89) Status:Active Family history of Parkinson' s disease: Other(V17.2, Z82.0) Status:Active Advance Directives Documents on File Type Date Recorded Patient Supervisor Wood Room Expl anation ACP-Advance Directive ACP-Power of Coverstitch Elastic Attacher Advance Directive Response Recorded Date/ Time Advance Directives No July 19, 2017 11:15am Reason for Referral Specialty Diagnoses / Procedures Referred By Stefano li Referred To Contact Radiology Diagnoses Polyarthralgia Procedures XR ARTHRITIS SURVEY HAND/WRIST Rheumatology [address] [place] [address] [facility] [address] [place] [id number] Referral ID Status Reason Start Date Expiration Date Visits Re quested Visits Authorized [id number] Closed 06/26/2024 06/26/2025 1 1 Specialty Diagnoses / Procedures Referred By Contac t Referred To Contact Diagnoses Preop examination Type 2 diabetes mellitus without complication, unspecified whether meterman insulin use ([facility]) Procedures ECG 12 lead Carlos Calvert DO [address] [facility] [address] [place] [address] Referral ID Status Reason Start Date Expiration Date V isits Requested Visits Authorized [id number] Pending Review 10/25/2023 10/24/2024 1 1 Additional Source Comments INFORMATION SOURCE (unrecogn ized section and content) DATE CREATED AUTHOR 04/06/[address] [facility] DATE CREATED AUTHOR AUTHOR'S ORGANIZ ATION 01/11/2019 [facility] DATE CREATED AUTHOR AUTHOR'S ORGANIZ ATION 01/28/2021 [facility] DATE CREATED AUTHOR AUTHOR'S ORGANIZ ATION 09/26/2021 [facility] DATE CREATED AUTHOR AUTHOR'S ORGANIZ ATION 02/08/2022 [facility] Specialist DATE CREATED AUTHOR AUTHOR'S ORGANIZ ATION 02/16/2022 [facility] DATE CREATED AUTHOR AUTHOR'S ORGANIZ ATION 11/25/2022 [facility] DATE CREATED AUTHOR AUTHOR'S ORGANIZ ATION 10/10/2023 [facility] DATE CREATED AUTHOR AUTHOR'S ORGANIZ ATION 10/16/2023 [facility] DATE CREATED AUTHOR AUTHOR'S ORGANIZ ATION 12/09/2023 [facility] DATE CREATED AUTHOR AUTHOR'S ORGANIZ ATION 07/03/2024 [facility] DATE CREATED AUTHOR AUTHOR'S ORGANIZ ATION 07/26/2024 [facility] dical Specialists EPIC Reason for Visit (unrecogniz ed section and content) Status Reason Specialty Diagnoses / Procedures Referre d By Contact Referred To Contact Closed Radiology Diagnoses Postlaminectomy syndrome, lumbar Procedures MRI LUMBAR SPINE W WO CONTRAST MRI LUMBAR SPINE W CONTRAST Kvng Katz MD [address] [place] [address] Reason Comments Med Refill Specialty Diagnoses / Procedures Referred By Contac t Referred To Contact Rheumatology Diagnoses Positive SASCHA (antinuclear antibody) Systemic lupus erythematosus, unspecified SLE type, unspecified organ involvement status ([facility]) Grazyna Worley MD [address] [place] [address] [facility] ARTHRITIS [address] [place] [address] Referral ID Status Reason Start Date Expiration Date V isits Requested Visits Authorized [id number] Pending Review 06/06/2024 06/06/2025 3 3 Specialty Diagnoses / Procedures Referred By Stefano li Referred To Contact Radiology Diagnoses Polyarthralgia Procedures XR ARTHRITIS SURVEY HAND/WRIST Rheumatology [address] [place] [address] [facility] DIAGNOSTIC RADIOLOGY [address] [place] [address] Referral ID Status Reason Start Date Expiration Date Visits Re quested Visits Authorized [id number] Closed 06/26/2024 06/26/2025 1 1 Reason Comments Annual Exam Medication follow up Last A1c was 5.8 Care Teams (unrecognized sec tion and content) Team Status: Active Member Role Status Dates Grazyna Worley MD Primary Care Provider Active Team Status: Inactive Member Role Status Dates Grazyna Worley MD Primary Care Provider Active River Cunha MD Attending Provider Active Engagement Executive Relationship Specialty Start Date End [place] [address] PCP - General Family Medicine 10/17/19 Engagement Executive Relationship Specialty Start Date End Date Grazyna Worley MD [address] [address] PCP - General Family Medicine 03/10/23 Engagement Executive Relationship Specialty Start Date End Date Grazyna Worley MD [address] [address] PCP - General Family Medicine 03/10/23 Engagement Executive Relationship Specialty Start Date End Date Grazyna Worley MD [address] [place] [address] PCP - General Family Medicine 03/10/23 Engagement Executive Relationship Specialty Start Date End Date Edu Aguirre MD [address] [place] [address] Fellow Rheumatology 07/15/24 Engagement Executive Relationship Specialty Start Date End Date Grazyna Worley MD [address] [place] [address] [address] PCP - General Family Medicine 03/10/23 Engagement Executive Relationship Specialty Start Date End Date Grazyna Worley MD [address] [address] PCP - General Family Medicine 03/10/23 Engagement Executive Relationship Specialty Start Date End Date Grazyna Worley MD [address] [address] PCP - General Family Medicine 03/10/23 Engagement Executive Relationship Specialty Start Date End Date Grazyna Worley MD [address] [address] PCP - General Family Medicine 03/10/23 Goals (unrecognized section and content) Goals may be documented in a n alternate sectionNo Information No data available for this section No data available for this section No data available for this sectionNot on filedocumented as of this encounter FOR RECORDS PERTAINING TO PATIENTS WHO ARE OR HAVE BEEN ENROLLED IN A CHEMICAL DEPENDENCY/SUBSTANCEABUSE PROGRAM, SOME INFORMATION MAY BE OMITTED. This clinical summary was aggregated from multiple sources. Caution should be exercised in using it in the provision of clinical care. This summary normalizes information from multiple sources, and as a consequence, information in this document may materially change the coding, format and clinical context of patient data. In addition, data may be omitted in some cases. CLINICAL DECISIONS SHOULD BE BASED ON THE PRIMARY CLINICAL RECORDS. [facility]. provides no warranty or guarantee of the accuracy or completeness of information in this document.
[2024-08-01 07:46] LABS: Creatinine Urine Random 104.81 mg/dL (20.00-300.00); Microalbumin Urine Random <1.3 mg/dL (<=30.0)
[2024-08-01 07:53] LABS: Chol HDL Ratio 2.6; Cholesterol 193 mg/dL (<=200); HDL Cholesterol 74 mg/dL (40-60); Triglycerides 104 mg/dL (<=150); VLDL CHOLESTEROL 20.8 mg/dL
== END 2024-08-01 06:52 | disposition home or self-care (01) ==
LOC: LAB 06:51
PROVIDERS: PCP Family Medicine; Visit Provider Family Medicine
DX: Z00.00 Encounter for general adult medical examination without abnormal findings (principal); E78.5 Hyperlipidemia, unspecified; R73.02 Impaired glucose tolerance (oral)
CPT/HCPCS: 36415; 80061; 82043; 82570

== ENCOUNTER 2025-04-05 14:03 | Outpatient (OUT) | payer BC, SELFPAY ==
--- NOTE | 2025-04-05 14:22 | XR_ITS ---
[address] [address] Patient Name: MARANDA DAVIS MRN: [id number] date: 1970 Sex: F Assigned Patient Location: [facility] Current Patient Location: [facility] Accession/Order Number: [id number] Exam Date: 04/05/2025 14:35 Report Date: 04/05/2025 14:35 At the request of: KVNG MONTOYA MD Procedure: XR knee LT 4V LEFT KNEE - 4 views CLINICAL HISTORY: Osteoarthritis Left Knee COMPARISON: None FINDINGS: Moderate degenerative changes of the left knee with patellofemoral joint space narrowing. No acute bony process. Small joint effusion. XR/XR knee LT 4V IMPRESSION: MODERATE DEGENERATIVE CHANGES OF THE LEFT KNEE WITHOUT ACUTE BONY PROCESS. Impression dictated by: Moises Jenkins Jr. DPatriciaOPatricia 04/05/2025 2:35 PM Dictation Location: [place] [address] Electronically authenticated by: [id number] Y Date: 04/05/2025 14:35
== END 2025-04-05 14:04 | disposition home or self-care (01) ==
LOC: RAD 14:03
PROVIDERS: PCP Family Medicine; Visit Provider Specialist
DX: M17.12 Unilateral primary osteoarthritis, left knee (principal)
CPT/HCPCS: 73564

== ENCOUNTER 2025-04-30 07:55 | Outpatient (OUT) | payer BC, SELFPAY ==
--- OUTSIDE RECORDS SUMMARY | 2025-02-16 07:47 | XMS_ITS | Continuity of Care Document ---
Author Organization [facility] Address [address] [place] [address] Phone Care Team Providers Care Stabber Name Role Phone Ana Maria Ramos DDS Unavailable Unavailable Allergies, Adverse Reactions, Alerts Substance Reaction Status Criticality No Known Allergies Active No Inform ation Medications Medication Instructions Dosage Effective Dates (start - stop) Status Comments amoxicillin 500 mg tablet take 4 tablets via oral route 30 minutes prior to next dental visit - Active Rexulti 0.5 mg tablet - Acti ve celecoxib 200 mg capsule TAKE 1 CAPSULE BY MOUTH TWICE A DAY NEEDED FOR PAIN - Active clonazepam 1 mg tablet - Act piyush furosemide 40 mg tablet - Ac tive bupropion HCl SR 200 mg tablet,12 hr sustained-release - Active oxybutynin chloride ER 15 mg tablet,extended release 24 hr - Active modafinil 200 mg tablet TAKE 1 TABLET BY MOUTH IN THE MORNING - Active ondansetron 4 mg disintegrating tablet - Active tizanidine 4 mg tablet TAKE 1 TABLET BY MOUTH THREE TIMES A DAY NEEDED FOR MUSCLE SPASM - Active duloxetine 30 mg capsule,delayed release TAKE 1 CAPSULE BY MOUTH DAILY DO NOT CRUSH OR CHEW. - Active tramadol 50 mg tablet - Acti ve bupropion HCl XL 300 mg 24 hr tablet, extended release - Active bupropion HCl SR 100 mg tablet,12 hr sustained-release TAKE 1 TABLET BY MOUTH IN THE MORNING AND BEFORE BEDTIME, DO NOT CRUSH, CHEW, OR SPLIT - Active triamcinolone acetonide 0.1 % topical ointment - Active trospium ER 60 mg capsule,extended release 24 hr - Active duloxetine 60 mg capsule,delayed release TAKE 2 CAPSULES BY MOUTH EVERY DAY - Active sulfamethoxazole 800 mg-trimethoprim 160 mg tablet - Active lidocaine 5 % topical patch APPLY 1 PATCH TO SKIN ONCE A DAY NEEDED FOR PAIN - Active diazepam 10 mg tablet TAKE 1 TABLET BY MOUTH 45 MINUTES PRIOR TO PROCEDURE AFTER SIGNING CONSENT. - Active oxybutynin chloride ER 10 mg tablet,extended release 24 hr - Active spironolactone 25 mg tablet - Active ciprofloxacin 500 mg tablet TAKE 1 TABLET (500 MG) BY MOUTH IN THE MORNING AND BEFORE BEDTIME FOR 10 DAYS - Active clindamycin HCl 300 mg capsule - Active amoxicillin 500 mg tablet take 1 tablet by oral route every 8 hours 500 MG - Active estradiol 2 mg tablet take 1 tablet by oral route every day 2 MG - Active Lyrica 200 mg capsule take 1 capsule by oral route 3 times every day 200 MG - Active omeprazole 20 mg capsule,delayed release take 1 capsule by oral route every day 30 minutes to 1 hour before a meal 20 MG - Active Effexor XR 75 mg capsule,extended release take 1 capsule by oral route every day with food 75 MG - Active metformin 1,000 mg tablet take 1 tablet by oral route 2 times every day with morning and evening meals 1000 MG - Active Metamucil 0.4 gram capsule - Active baclofen 10 mg tablet take 1 tablet by oral route 4 times every day 10 MG - Active amitriptyline 50 mg tablet take 1 tablet by oral route every day at bedtime 50 MG - Active trazodone 50 mg tablet take 1 tablet by oral route every day at bedtime 50 MG - Active amoxicillin 500 mg tablet take 4 tablets via oral route 30 minutes prior to next dental visit - No Longer Active Procedures Procedure Date Nutrit Couns For Control Of [place] Dis Jan Resin Composite 2s; Posterior 5 Nutrit Couns For Control Of [place] Dis Dec Resin Composite 3s; Posterior 5 Bitewings Four Films Intraoral-periapical 1st Film 5 [id number] Additional Dec Nutrit Couns For Control Of [place] Dis Dec Comp Oral Eval New/estab Patient 2024 Post Op Visit Dental Oral Hygiene Instruction Extract; Erupted Th/exposted Rt 020 Post Op Visit Dental Panoramic Film Oral Hygiene Instruction Limited Oral Eval Advance Directives Directive Yes / No Effective Date File Name No Information Encounters Encounter Description Practice Location Reason(s) For Visit Diagnoses Date Provider Providers Copied on Encounter [facility], [address] [place] [address], [id number], [place] tel:[phone] Dental Clinic No Information 5 Ramos DDS [facility]. [address] [place] [address], [id number], [place]. tel:[phone] [facility], [address] [place] [address], [id number], [place] tel:[phone] [facility] Dental Clinic filling (chief complaint) Encounter for screening for dental disorders 5 Ramos DDS Y[facility]. [address] [place] [address], [address], [place]. tel:[phone] [facility], [address] [place] [address], [id number], [place] tel:[phone] [facility] Dental Clinic fill (chief complaint) Encounter for screening for dental disorders 5 Ramos DDS [facility]. [address] [place] [address], [address], [place]. tel:[phone] [facility], [address] [place] [address], [id number], [place] tel:[phone] [facility] Dental Clinic DN (chief complaint) Body mass index [BMI]30.0-30.9, adultEncounter for screening for dental disorders 5 Richard Rodgers. [address] [place], [address], [place]. tel:[phone] [facility], [address] [place] [id number], [place] tel:[phone] Dental Clinic post op (chief complaint) Encounter for screening for dental disorders 0 Denton Khan. [address] [place], [place], [id number], [place]. tel:[phone] [facility], [address] [place] [address], [id number], [place] tel:[phone] Dental Clinic ext (chief complaint) Encounter for screening for dental disorders 0 Rohan Cox. [address] [place], [place], [id number], [place]. tel:[phone] [facility], [address] [place] [address], [id number], [place] tel:[phone] Dental Clinic No Information 0 Rohan Cox. [address] [place], [place], [id number], [place]. tel:[phone] [facility], [address] [place] [address], [id number], [place] tel:[phone] Dental Clinic Consult (chief complaint) Encounter for screening for dental disorders 0 Rohan PHOENIXS Kenny. [address] [place], [place], [id number], [place]. tel:[phone] Family History Family Member Type Diagnosis Age At Onset Father Problem Alive and well Mother Problem Thyroid disorder Father Problem stomach problems Father Problem Cardiovascular disease Payers Payer name Insurance type Covered alliance party ID Aldair noe(aiden) [employer] 17 [id number] Social History Type Description Quantity Date Captured Comments Sex Female Smoking Status No Information Sexual Orientation Straight or heterosexual Gender Identity Female Chief Complaint And Reason For Visit No Information Reason For Referral Reason For Referral No Information Plan Of Treatment Date Type Action Status Goal Depression scree lissa. Due on due Goal Hepatitis C scre ening. Due on due Goal FOBT. Due on due Goal Lipid panel. Due on due Goal Unhealthy drug u se screening. Due on due Goal HPV. Due on due Goal Influenza vaccine. Due on Ap due Goal Zoster vaccine ( ). Due on due Goal Tdap. Due on due Goal Mammogram. Due on due Goal FIT. Due on due Goal Tdap Vaccine. Due on [address]-Colonography. Due on due Goal Colonoscopy. Due on due Goal PRAPARE ASSESSMENT. Due on A due Goal FIT-DNA. Due on due Goal Hepatitis C scre ening. Due on due Goal Colonoscopy. Due on due Goal Unhealthy drug u se screening. Due on due Goal CT-Colonography. Due on due Goal Zoster vaccine ( ). Due on due Goal FOBT. Due on due Goal Mammogram. Due on due Goal FIT. Due on due Goal Lipid panel. Due on due Goal Tdap Vaccine. Due on 2024 due Goal FIT-DNA. Due on due Goal Tdap. Due on due Goal HPV. Due on due Goal PRAPARE ASSESSMENT. Due on due Goal Influenza vaccine. Due on Nm due Goal Depression scree lissa. Due on due Goal Depression scree lissa. Due on due Goal HPV. Due on due Goal Hepatitis C scre ening. Due on due Goal Unhealthy drug u se screening. Due on due Goal Influenza vaccine. Due on due Goal Tdap Vaccine. Due on 2024 due Goal PRAPARE ASSESSMENT. Due on due Goal Tdap. Due on due Goal FOBT. Due on due Goal CT-Colonography. Due on due Goal FIT-DNA. Due on due Goal Lipid panel. Due on due Goal Colonoscopy. Due on due Goal Zoster vaccine ( 1st). Due on due Goal Mammogram. Due on due Goal FIT. Due on due Nutrition Recommendation Oral nutritional support completed History Of Present Illness Encounter Date Complaint History Of Prese nt Illness filling filling fill DN DN post op post op ext ext Consult Consult Functional Status Date Functional Assessmen t No Information Instructions Date Instruction Additional Infor seda Giving encouragement to exercise Related to Body mass index [BMI] 30.0-30.9, adult Assessments Type Assessment Date No Information Patient Care Teams Name Effective Dates (start - stop) Status Members No Information
--- NOTE | 2025-04-30 07:57 | MM_ITS ---
Patient Name: MARANDA DAVIS MR#: [id number] : 1970 Exam Date: 04/30/2025 Ordering Doctor: DR CODY URIAS RADIOLOGY REPORT PROCEDURE: MM TOMOSYNTHESIS SCREENING BI COMPARISON: MG MAMM SCREEN VAISHNAVI W CAD, 10/21/2018. MG MAMM VAISHNAVI SCRN W CAD DIG, 02/28/2016. MG MAMM VAISHNAVI SCRN W CAD DIG, 08/08/2014. INDICATIONS: Screening Calculator Name NCI Breast Cancer Risk Assessment Tool 5 Year Breast Cancer Risk 0.80% Lifetime Breast Cancer Risk 6.10% Personal Breast Cancer No Personal Ovarian Cancer No Treatments None Family Cancers Aunt-paternal with breast cancer at age 62; Grandmother-paternal with colon cancer at age 63; Grandfather-paternal with colon cancer at age 68. LOCATION: [facility] BREAST COMPOSITION: The breasts are heterogeneously dense, which may obscure small masses. FINDINGS: RIGHT BREAST: No significant suspicious finding. LEFT BREAST: No significant suspicious finding. DIAGNOSTIC CATEGORY 1--NEGATIVE. RECOMMENDATIONS: ROUTINE MAMMOGRAM AND CLINICAL EVALUATION IN 12 MONTHS. PLEASE NOTE: A NORMAL MAMMOGRAM DOES NOT EXCLUDE THE POSSIBILITY OF BREAST CANCER. A CLINICALLY SUSPICIOUS PALPABLE LUMP SHOULD BE BIOPSIED. Dictated by: Douglas Bartlett MD on 04/30/2025 at 12:39 Approved by: Douglas Bartlett MD on 04/30/2025 at 12:41
--- OUTSIDE RECORDS SUMMARY | 2025-04-30 07:57 | XMS_ITS | Encounter Summary ---
Author Organization [facility] Address [address] [place] [address] Phone Care Team Providers Care Tool Coordinator Name Role Phone Nany Obrien MD Primary Care Provider [phone] Encounter Details Date Type Department Care Team (Late st Contact Info) Description 05/14/2021 Orders Only [facility] [address] [place] [address] Conversion, Onbase Social History Tobacco Use Types Packs/Day Years Used Date Smoking Tobacco: Never Assessed Comments Unknown Sex and Gender Information Value Date Recorded Sex Assigned at Not on file Legal Sex Female 7:34 AM EST Gender Identity Not on file Sexual Orientation Not on file documented as of this encounter Plan of Treatment Scheduled Orders Name Type Priority Associated Diagnoses Orde r Schedule OUTSIDE LAB SCAN Lab Ordered: 05/14/2021 documented as of this encounter Visit Diagnoses Not on filedocumented in this encounter Care Teams Tool Coordinator Relationship Specialty Start Date End Date Nany Obrien MD [address] [address] PCP - General 09/25/21 documented as of this encounter
--- OUTSIDE RECORDS SUMMARY | 2025-04-30 07:57 | XMS_ITS | Clinical Summary ---
Author Organization [facility] Address [address] [place], [place] [address] Care Team Providers Care Trimmer Operator Three Knife Name Role Phone Nany Obrien MD Primary Care Provider [phone] Sterling Pearson MD Unavailable [phone] Allergies No known active allergies Medications Pregabalin (LYRICA) 200 mg capsule Take 200 mg by mouth three times daily. Active oxyCODONE ER (OXYCONTIN) 10 mg 12 hr tablet Take 10 mg by mouth every 12 hours. Active OXcarbazepine (TRILEPTAL) 150 mg tablet Take 150 mg by mouth three times daily. Active baclofen (LIORESAL) 10 mg tablet Take 10 mg by mouth four times daily. Active estradiol (ESTRACE) 2 mg tablet Take 2 mg by mouth once daily. Active tolterodine ER (DETROL LA) 4 mg 24 hr capsule Take 4 mg by mouth twice daily. Active IBUPROFEN (MOTRIN ORAL) Take by mouth. A ctive clonazePAM (KLONOPIN) 1 mg tablet Take 1 mg by mouth daily at bedtime. Active metoprolol succinate ER (TOPROL XL) 25 mg 24 hr tablet Take 25 mg by mouth once daily. Active traZODone (DESYREL) 50 mg tablet Take 50 mg by mouth daily at bedtime. Take 1 to 2 tablets by mouth at bedtime as needed Active venlafaxine (EFFEXOR) 75 mg tablet Take 75 mg by mouth every morning. Take two capsules by mouth every morning Active SUMAtriptan (IMITREX) 100 mg tablet Take 100 mg by mouth as needed for Migraine Headache (see administration instructions) (take one tablet by mouth as needed for migraine may repeat once in 2 hours max 2 tabls daily 4 tabs in one week). Active predniSONE (DELTASONE) 10 mg tablet Take 10 mg by mouth once daily. Take 4 tabs daily for 4 days, 3 tabs for 4 days, 2 tabs for 4 days, 1 tab for 4 days QTY#[id number] Active Active Problems Problem Noted Date Diagnosed Date Spinal cord stimulator status 07/23/2016 Spondylolisthesis of lumbar region 07/23/2016 S/P lumbar laminectomy 07/23/2016 S/P lumbar fusion 07/23/2016 Anxiety and depression Anemia Arthritis Bursitis Diabetes High cholesterol Lyme disease Back pain BMI 31.0-31.9,adult Smoker Excessive sweating Tremor Family History Medical History Relation Comments Blood Disease Father Cancer Maternal Grandmother Cancer Paternal Grandfather Diabetes Paternal Grandfather Relation Status Comments Father Maternal Grandmother Paternal Grandfather Social History Tobacco Use Types Packs/Day Years Used Date Smoking Tobacco: Some Days Cigarettes 0.2 33 Alcohol Use Standard Drinks/Week Comments No 0 (1 standard drink = 0.6 oz pur e alcohol) Comments No Sex and Gender Information Value Date Recorded Sex Assigned at Not on file Legal Sex Female 1:29 PM EDT Gender Identity Not on file Sexual Orientation Not on file Occupation Industry Job Start Date Job End Date not working/disabled/retired Not on file Not on file Not on file Last Filed Vital Signs Vital Sign Reading Time Taken Comments Blood Pressure 117/72 05/11/2017 3:53 PM EDT Pulse 67 05/11/2017 3:53 PM EDT Temperature - - Respiratory Rate 20 07/23/2016 8:48 AM EDT Oxygen Saturation - - Inhaled Oxygen Concentration - - Weight 102.1 kg (225 lb) 05/11/2017 3:53 PM EDT Height 177.8 cm (5' 10 ) 05/11/2017 3:53 PM EDT Body Mass Index 32.28 05/11/2017 3:53 PM EDT Plan of Treatment Health Maintenance Due Date Last Done Comments Anxiety Screening 1989 Depression Screening 1989 HIV Screening 1989 Hepatitis C Screening 1989 DTaP,Tdap,Td Vaccine (1 - Tdap) 1990 Hepatitis B Vaccine (1 of 3 - 19+ 3-dose series) 01/13 Cervical Cancer Screening 01/14/[address] Colonography 01/14/2016 Cologuard (FIT-DNA) 01/14/2016 Colonoscopy 01/14/2016 Colorectal Cancer Screening 01/14/2016 Diabetes Screening 01/14/2016 Fecal Occult Blood 01/14/2016 Lipid Screening 01/14/2016 Sigmoidoscopy 01/14/2016 Pneumococcal Vaccine: 50+ (1 of 1 - PCV) 2021 Shingrix Vaccine (1 of 2) 2021 Covid-19 Vaccine (1 - season) 2024 Influenza Vaccine (#1) 2025 Insurance MEDICARE [facility] PPO Care Teams Trimmer Operator Three Knife Relationship Specialty Start Date End Date Nany Obrien MD [address] [facility] [address] [place] [address] PCP - General Family Medicine 05/29/16 Sterling Pearson MD [address] [facility] [address] [place] [address] Referring Anesthesiology 05/29/16
--- OUTSIDE RECORDS SUMMARY | 2025-04-30 07:57 | XMS_ITS | Clinical Summary ---
Author Organization [facility] Address [address] [place] [address] Care Team Providers Care Industrial Machine Operator Name Role Phone Krystal Lamb Primary Care Provider [phone] Allergies Active Allergy Reactions Criticality Noted Date Comments Hydromorphone 09/17/2021 Severe headache, rash Other Reaction(s): Unknown Medications clonazePAM 1 MG Tab Dispersible Take by mouth daily. 4 Active Diazepam 10 MG tablet TAKE 1 TABLET BY MOUTH 45 MINUTES PRIOR TO PROCEDURE AFTER SIGNING CONSENT. 4 Active DULoxetine [address] Particles capsule DR Take 1 capsule by mouth Every night. Active Active Problems Problem Noted Date Diagnosed Date Obesity (BMI 30.0-34.9) 01/02/2025 Social History Tobacco Use Types Packs/Day Years Used Date Smoking Tobacco: Never Assessed Comments Unknown Sex and Gender Information Value Date Recorded Sex Assigned at Female 12/22/2024 1:26 PM EDT Legal Sex Female 1:24 PM EDT Gender Identity Female 12/22/2024 1:26 PM EDT Sexual Orientation Straight 12/22/2024 1: 26 PM EDT Last Filed Vital Signs Vital Sign Reading Time Taken Comments Blood Pressure - - Pulse - - Temperature - - Respiratory Rate - - Oxygen Saturation - - Inhaled Oxygen Concentration - - Weight 98 kg (216 lb) 01/02/2025 11:14 AM EDT Height 177.8 cm (5' 10 ) 01/02/2025 11:14 AM EDT Body Mass Index 30.99 01/02/2025 11:14 AM EDT Plan of Treatment Upcoming Encounters Date Type Department Care Team (Late st Contact Info) Description 05/29/2025 1:15 PM EDT Office Visit [facility] [address] [facility] [address] [place] [address] Kyrie Saeed MD [address] [facility] [address] [place] [address] Scheduled Procedures Name Priority Associated Diagnoses Date/Ti me BREAST REDUCTION Macromastia Health Maintenance Due Date Last Done Comments HEPATITIS C VIRUS SCREENING 1970 TETANUS 1971 HIV SCREENING DISCUSSION 1986 HEP B VACCINE (1 of 3 - 19+ 3-dose series) 1990 TDAP (ADULT) 1990 CERVICAL CANCER SCREENING DISCUSSION 01/14/1992 LIPID SCREENING 2011 PNEUMOCOCCAL VACCINE SERIES (1 of 1 - PCV) 2021 ZOSTER (SHINGLES) VACCINE (1 of 2) 2021 MAMMOGRAM SCREENING DISCUSSION 02/05/2023 0 02/05/2022, 11/02/2019, 10/21/2018, Additional history exists COLORECTAL CANCER SCREENING DISCUSSION 06/09/2023 06/09/2022 COVID-19 VACCINE (1 - 2023-2 5 season) 2024 INFLUENZA VACCINE (#1) 2025 , 07/14/2023, 07/16/2020, Additional history exists Insurance [facility] PPO POS MEDICARE PART A Care Teams Industrial Machine Operator Relationship Specialty Start Date End Date Krystal Lamb PA [address] [facility] [address] [place] [address] PCP - General Physician President And Chief Operating Officer 01/02/25
--- OUTSIDE RECORDS SUMMARY | 2025-04-30 07:57 | XMS_ITS | Clinical Summary ---
Author Organization [employer] Address [id number] [address] [place] [address] Care Team Providers Care Wind Energy Systems Installer Name Role Phone Nany Obrien MD Primary Care Provider [phone] Allergies Active Allergy Reactions Criticality Noted Date Comments Hydromorphone 09/17/2021 Severe headache, rash Medications pregabalin (LYRICA) 200 mg capsule Take 1 capsule (200 mg total) by mouth 3 (three) times a day. Active DULoxetine (CYMBALTA) 60 mg capsule Take 1 capsule (60 mg total) by mouth respiratory nightly. Active clonazePAM (KlonoPIN) 1 mg tablet Take 1 tablet (1 mg total) by mouth nightly as needed for seizures. Active traZODone (DESYREL) 50 mg tablet Take 1 tablet (50 mg total) by mouth nightly. Active amitriptyline (ELAVIL) 25 mg tablet Take 1 tablet (25 mg total) by mouth nightly. Active tiZANidine (ZANAFLEX) 4 mg tablet Take 1 tablet (4 mg total) by mouth every 6 (six) hours as needed for muscle spasms. Active estradioL (ESTRACE) 0.5 mg tablet Take 1 tablet (0.5 mg total) by mouth in the morning. Active furosemide (LASIX) 20 mg tablet Take 2 tablets (40 mg total) by mouth nightly. Active spironolactone (ALDACTONE) 25 mg tablet Take 1 tablet (25 mg total) by mouth in the morning. Active NON FORMULARY Pain pump for spine- Morphine, Baclofen, Clonidine combination Active omeprazole (PriLOSEC) 40 mg capsule Take 1 capsule (40 mg total) by mouth in the morning. Active Active Problems Problem Noted Date Diagnosed Date Primary localized osteoarthritis of right knee 0 12/01/2023 Family History Medical History Relation Name Comments Clotting disorder Father Epilepsy Father Heart disease Mother Thyroid disease Mother Relation Name Status Comments Father Alive Mother Alive Social History Tobacco Use Types Packs/Day Years Used Date Smoking Tobacco: Former Cigarettes Q uit: 2014 Smokeless Tobacco: Never Alcohol Use Standard Drinks/Week Comments Never 0 (1 standard drink = 0.6 oz pur e alcohol) [facility] Utilities Answer Date Recorded In the past 12 months has th e [employer], gas, oil, or water company threatened to shut off services in your home? No 12/01/2023 AUDIT-C Answer Date Recorded Frequency of Alcohol Consumption Never 10/05/2019 Average Number of Drinks Not on file 019 Frequency of Binge Drinking Not on file 09/11 PRAPARE - Transportation Answer Date Re corded In the past 12 months, has l ack of transportation kept you from medical appointments or from getting medications? No 11/12 In the past 12 months, has l ack of transportation kept you from meetings, work, or from getting things needed for daily living? No 12/01/2023 Housing Instability Answer Date Recorde d Are you worried or concerned that in the next two months you may not have stable housing that you own, rent or stay in as a part of a household? No 12/01/2023 Childcare Answer Date Recorded Childcare Unknown 03/22/2019 Employment Answer Date Recorded Employment Unknown 03/22/2019 Hunger Screening Answer Date Recorded Within the past 12 months we worried whether our food would run out before we got money to buy more. Never True 12/01/2023 Within the past 12 months th e food we bought just didn't last and we didn't have money to get more. Never True 12/01/2023 Purpose - Life Answer Date Recorded Purpose and direction in life Unknown Comments No Sex and Gender Information Value Date Recorded Sex Assigned at Not on file Legal Sex Female 12:07 PM EDT Gender Identity Not on file Sexual Orientation Not on file Last Filed Vital Signs Vital Sign Reading Time Taken Comments Blood Pressure 95/54 12/02/2023 7:36 AM EST Pulse 78 12/02/2023 7:36 AM EST Temperature 36.6 C (97.9 F) 12/02/2023 7:36 AM EST Respiratory Rate 16 12/02/2023 7:36 AM EST Oxygen Saturation 92% 12/02/2023 7:36 AM EST Inhaled Oxygen Concentration - - Weight 90.3 kg (199 lb) 12/01/2023 12:15 PM EST Height 177.8 cm (5' 10 ) 12/01/2023 12:15 PM EST Body Mass Index 28.55 12/01/2023 12:15 PM EST Plan of Treatment Health Maintenance Due Date Last Done Comments Depression Screening 1983 DTaP,Tdap and Td Vaccines (1 - Tdap) 1990 Zoster (Shingles) Vaccine (1 of 2) 2021 Adult BMI Screening 12/01/2024 12/01/2023 Tobacco Screening 12/01/2024 12/01/2023 Influenza Vaccine 06/11/2025 07/14/2023, , 07/08/2017, Additional history exists Goals Goal Patient Goal Type Associated Problems Recent Progress Patient-Stated? Author home General Yes Ilda French LSW Note: Evaluation of progress towards goal: pt said she was up with therapy Medical Devices Implanted Type Area Medicinal Chemist Device Identifier Shelf Expiration Date Model / Serial / Lot Cement Bn Bio 40gm Rpl [id number] - [id number] Implanted:Qty: 1 on 12/01/2023 by Slava Calvert DO at [facility] Cement Right: Knee [employer] 03/10/2026 [id number] / NA / [id number] Persona The Personalized Knee System Cruciate Retaining Right Pps Standard Femur Implanted:Qty: 1 on 12/01/2023 by Slava Calvert DO at [facility] Orthopedic Implant Right: Knee [employer] [id number] 11/28/2032 [id number] / NA / [id number] Component Tib Kn Rt 0d E Persona Osseoti Keel - [facility] - [id number] Implanted:Qty: 1 on 12/01/2023 by Slava Calvert DO at [facility] Orthopedic Implant Right: Knee [employer] 07/02/2033 [id number] / NA / [id number] Component Ptlr 32mm Persona Alply Kn Strl Lf - Sna - [id number] Implanted:Qty: 1 on 12/01/2023 by Slava Calvert DO at [facility] Orthopedic Implant Right: Knee [employer] 08/30/2028 [id number] / NA / [id number] Insert Artc 8-11 E-F 10mm Kn Rt Vivacit-E Persona Strl - Sna - [id number] Implanted:Qty: 1 on 12/01/2023 by Slava Calvert DO at [facility] Orthopedic Implant Right: Knee [employer] 07/06/2027 [id number] / NA / [id number] Explanted Type Area Medicinal Chemist Device Identifier Shelf Expiration Date Model / Serial / Lot Screw Bn 35mm 6.5mm St Hip Actb Trlg Strl Rpl [id number] - Sna - [id number] Explanted:Qty: 1 on 12/01/2023 by Slava Calvert DO at [facility] Screw Right: Knee [employer] 12/22/2032 [id number] / NA / [id number] Screw Bn 35mm 6.5mm St Hip Actb Trlg Strl Rpl [id number] - Sna - [id number] Explanted:Qty: 1 on 12/01/2023 by Slava Calvert DO at [facility] Screw Right: Knee [employer] 01/30/2033 [id number] / NA / [id number] Guide 27mm Hx Hd Scr Srg - Sna - [id number] Explanted:Qty: 1 on 12/01/2023 by Slava Calvert DO at [facility] Screw Right: Knee [employer] 06/13/2033 [id number] / NA / [id number] Guide 27mm Hx Hd Scr Srg - Sna - [id number] Explanted:Qty: 1 on 12/01/2023 by Slava Calvert, DO at [facility] Screw Right: Knee [employer] 06/08/[id number] / NA / [id number] Screw Gd 48mm Qd-Spr Hex Hd Mis Strl - Sna - [id number] Explanted:Qty: 1 on 12/01/2023 by Slava Calvert, DO at [facility] Screw Right: Knee [employer] 09/14/[id number] / NA / [id number] Screw Gd 48mm Qd-Spr Hex Hd Mis Strl - Sna - [id number] Explanted:Qty: 1 on 12/01/2023 by Slava Calvert, DO at [facility] Screw Right: Knee [employer] 09/15/[id number] / NA / [id number] Insurance [facility] MEDIC[facility] Advance Directives * Full Code (Latest Code Status on File) Date Activated Date Inactivated Comments 12/01/2023 7:06 AM 12/02/2023 3:34 PM Care Teams Wind Energy Systems Installer Relationship Specialty Start Date End [place] [address] [place] [address] PCP - General Family Medicine 10/17/19
--- OUTSIDE RECORDS SUMMARY | 2025-04-30 07:57 | XMS_ITS | Clinical Summary ---
Author Organization [facility] Address [address] [place] [address] Phone Care Team Providers Care Penal Officer Name Role Phone Nany Obrien MD Primary Care Provider [phone] Social History Tobacco Use Types Packs/Day Years Used Date Smoking Tobacco: Never Assessed Comments Unknown Sex and Gender Information Value Date Recorded Sex Assigned at Not on file Legal Sex Female 7:34 AM EST Gender Identity Not on file Sexual Orientation Not on file Last Filed Vital Signs Vital Sign Reading Time Taken Comments Blood Pressure 120/76 09/25/2021 1:11 PM EST Pulse 62 09/25/2021 1:11 PM EST Temperature - - Respiratory Rate - - Oxygen Saturation - - Inhaled Oxygen Concentration - - Weight 112 kg (248 lb) 09/25/2021 1:11 PM EST Height 177.8 cm (5' 10 ) 09/25/2021 1:11 PM EST Body Mass Index 35.58 09/25/2021 1:11 PM EST Plan of Treatment Not on file Care Teams Penal Officer Relationship Specialty Start Date End Date Nany Obrien MD [address] [facility] [address] [place] [address] PCP - General 09/25/21
--- OUTSIDE RECORDS SUMMARY | 2025-04-30 07:57 | XMS_ITS | Encounter Summary ---
Author Organization [facility] Address [address] [facility] [address] [facility] [place] [address] Care Team Providers Care Rug Hooker Name Role Phone Nany Obrien MD Primary Care Provider [phone] Encounter Details Date Type Department Care Team (Latest Contact Info) Description 12/29/2020 Transcribe Orders [facility] [address] [place], [place] [id number] Lilia Katz MD [address] [place], [place] [id number] Postlaminectomy syndrome, lumbar (Primary Dx) Social History Tobacco Use Types Packs/Day Years Used Date Smoking Tobacco: Every Day Cigarettes 0.3 20 Smokeless Tobacco: Never Alcohol Use Standard Drinks/Week Comments No 0 (1 standard drink = 0.6 oz pur e alcohol) Comments No Sex and Gender Information Value Date Recorded Sex Assigned at Not on file Legal Sex Female 11:21 AM EDT Gender Identity Not on file Sexual Orientation Not on file documented as of this encounter Plan of Treatment Not on file documented as of this encounter Visit Diagnoses Diagnosis Postlaminectomy syndrome, lumbar- Primary Postlaminectomy syndrome, lumbar region documented in this encounter Care Teams Rug Hooker Relationship Specialty Start Date End Date Nany Obrien MD PCP - General Family Medicine 07/30/17 documented as of this encounter
== END 2025-04-30 07:56 | disposition home or self-care (01) ==
LOC: MAMMO 07:56
PROVIDERS: PCP Family Medicine; Visit Provider Obstetrics & Gynecology
DX: Z12.31 Encounter for screening mammogram for malignant neoplasm of breast (principal); Z80.3 Family history of malignant neoplasm of breast; Z80.0 Family history of malignant neoplasm of digestive organs
CPT/HCPCS: 77063; 77067

== ENCOUNTER 2025-07-14 16:59 | Emergency (ER) | payer BC, SELFPAY ==
--- OUTSIDE RECORDS SUMMARY | 2025-02-16 07:47 | XMS_ITS | Continuity of Care Document ---
Author Organization [facility] Address [address] [place] [address] Phone Care Team Providers Care Ent Physician Name Role Phone Ana Maria Ramos DDS [...] Procedure Date Nutrit Couns For Control Of [place] Dis Jan Resin Composite 2s; Posterior 5 Nutrit Couns For Control Of [place] Dis Dec Resin Composite 3s; Posterior 5 Bitewings Four Films Intraoral-periapical 1st Film 5 [id number] Additional Dec Nutrit Couns For Control Of [place] Dis Dec Comp Oral Eval New/estab Patient 2024 Post Op Visit Dental Oral Hygiene Instruction Extract; Erupted Th/exposted Rt 020 Post Op Visit Dental Panoramic Film Oral Hygiene Instruction Limited Oral Eval Advance Directives Directive Yes / No Effective Date File Name No Information Encounters Encounter Description Practice Location Reason(s) For Visit Diagnoses Date Provider Providers Copied on Encounter [facility], [address] [place] [address], [id number], [place] tel:[phone] Dental Clinic No Information 5 Ramos DDS Yixue. [address] [place] [address], [id number], [place]. tel:[phone] [facility], [address] [place] [address], [id number], [place] tel:[phone] [facility] Dental Clinic filling (chief complaint) Encounter for screening for dental disorders 5 Ramos DDS Yixue. [address] [place] [address], [address], [place]. tel:[phone] [facility], [address] [place] [address], [id number], [place] tel:[phone] [facility] Dental Clinic fill (chief complaint) Encounter for screening for dental disorders 5 Ramos DDS Yixue. [address] [place] [address], [id number], [place]. tel:[phone] [facility], [address] [place] [address], [id number], [place] tel:[phone] [facility] Dental Clinic DN (chief complaint) Body mass index [BMI]30.0-30.9, adultEncounter for screening for dental disorders 5 Richard Rodgers. [address] [place], [address], [place]. tel:[phone] [facility], [address] [place] [address], [id number], [place] tel:[phone] Dental Clinic post op (chief complaint) Encounter for screening for dental disorders 0 Denton Khan. [address] [place], [place], [id number], [place]. tel:[phone] [facility], [address] [place] [address], [id number], [place] tel:[phone] Dental Clinic ext (chief complaint) Encounter for screening for dental disorders 0 Rohan Cox. [address] [place], [place], [id number], [place]. tel:[phone] [facility], [address] [place] [address], [id number], [place] tel:[phone] Dental Clinic No Information 0 Rohan Cox. [address] [place], [place], [id number], [place]. tel:[phone] [facility], [address] [place] [address], [id number], [place] tel:[phone] Dental Clinic Consult (chief complaint) Encounter for screening for dental disorders 0 Rohan PHOENIXS Kenny. [address] [place], [place], [id number], [place]. tel:[phone] Family History Family Member Type Diagnosis Age At Onset Father Problem Alive and well Mother Problem Thyroid disorder Father Problem stomach problems Father Problem Cardiovascular disease Payers Payer name Insurance type Covered republican ID Aldair noe(aiden) [employer] 17 [id number] Social History Type Description Quantity Date Captured [...] on due Goal Influenza vaccine. Due on Nv due Goal Depression scree lissa. Due on due Goal Depression scree lissa. Due on due Goal HPV. Due on due Goal Hepatitis C scre ening. Due on due Goal Unhealthy drug u se screening. Due on due Goal Influenza vaccine. Due on due Goal Tdap Vaccine. Due on 2024 due Goal Tdap. Due on due Goal FOBT. Due on due Goal CT-Colonography. Due on due Goal FIT-DNA. Due on due Goal Lipid panel. Due on due Goal Colonoscopy. Due on due Goal Zoster vaccine ( 1st). Due on due Goal Mammogram. Due on due Goal FIT. Due on due Goal PRAPARE ASSESSMENT. Due on due Nutrition Recommendation Oral nutritional [...]
--- OUTSIDE RECORDS SUMMARY | 2025-07-09 11:00 | XMS_ITS | Encounter Summary ---
Author Organization [facility] Address [address] [place] [address] Care Team Providers Care Hvac Sheet Metal Installer Name Role Phone Krystal Lamb Primary Care Provider [phone] Reason for Referral * Radiology (Routine) - New Request Specialty Diagnoses / Procedures Referred By Contac t Referred To Contact Diagnoses Pre-op testing Procedures ECG Danny Perera DO [address] [place] [address] Phone: tel: fax: Referral ID Status Reason Start Date Expiration Date V isits Requested Visits Authorized [id number] New Request 07/05/2025 07/30/2026 1 1 Reason for Visit * Reason Comments Preoperative Assessment Breast reduction 07/24 Darlin Martin Encounter Details Date Type Department Care Team (Latest Contact Info) Description 07/09/2025 11:00 AM EDT Pre-Operative Nurse Assessment [facility] Pre Admission [address] [place] [address] Kyrie Saeed MD [address] [facility] [address] [place] [address] Pre-op testing (Primary Dx) Social History Tobacco Use Types Packs/Day Years Used Date Smoking Tobacco: Former Cigarettes Smokeless Tobacco: Never Tobacco Cessation:Counseling Given: Not Answered Comments:Quit 2014 Alcohol Use Standard Drinks/Week Comments Never 0 (1 standard drink = 0.6 oz pur e alcohol) Comments No Sex and Gender Information Value Date Recorded Sex Assigned at Female 12/22/2024 1:26 PM EDT Legal Sex Female 1:24 PM EDT Gender Identity Female 12/22/2024 1:26 PM EDT Sexual Orientation Straight 12/22/2024 1: 26 PM EDT documented as of this encounter Last Filed Vital Signs Vital Sign Reading Time Taken Comments Blood Pressure 112/56 07/09/2025 11:22 AM EDT Pulse 50 07/09/2025 11:22 AM EDT regu lar Temperature - - Respiratory Rate 20 07/09/2025 11:22 AM EDT lungs cta Oxygen Saturation 97% 07/09/2025 11:22 AM EDT Inhaled Oxygen Concentration - - Weight 89.8 kg (198 lb) 07/09/2025 11:22 AM EDT Height 177.8 cm (5' 10 ) 07/09/2025 11:22 AM EDT Body Mass Index 28.41 07/09/2025 11:22 AM EDT documented in this encounter Patient Instructions * Patient Instructions* Odessa De La Paz RN - 07/09/2025 11:00 AM EDT Images from the original note were not included. Please read through your instructions: [] Today after your PAT appointment [] One week before your surgery. If you have ANY questions please call the office so we may assist you. PAT OFFICE: [phone] ARRIVAL TIME: [phone] Thank you for choosing [facility]. Your surgery date is 07/24/25Wednesday (Your surgeon's office will call you with any date changes) Please call [phone] for your arrival time. For your convenience, please call(between NOON and 2pm) one business day (Wednesday through Wednesday, excluding holidays) before your surgery to verify your arrival time. *Example: if your surgery is on Wednesday, please call on Wednesday. If a holiday falls on Wednesday and your surgery is , please call on Wednesday to verify your arrival time. Please be prepared to wait. Your surgery will not be until at least 2 hours after your arrival time. If you do not call you will receive a call with your arrival time after 2pm. *Surgery times have a tendency to change due to emergencies or cancellations. You will be notified if your arrival time changes. At [facility]'s Outpatient Surgery Department, we strive to make your surgery experience as accommodating and relaxed as possible. Occasionally, emergencies arise that require an adjustment in the surgery schedule, as a result, your procedure could be delayed. Patient Surgery Information If you have any questions concerning your surgery/procedure, please call the P.A.T. Coordinator, Wednesday through Wednesday, 8:00 am to 4:30 pm at [phone]. (Odessa Shirley, and Radha) For surgical questions during evenings or weekends, please call [phone] (If unable to come theday of surgery.) and ask the rip saw operator to page the Nursing Information Assurance. Discontinue any blood thinners such as Aspirin, Plavix, Coumadin, Eliquis as instructed by your physician. STOP any NSAIDs (Ibuprofen, Motrin, Aleve, Advil, etc.), herbal supplements, vitamins, diet pills, appetite suppressants, energy drinks and essential oils 7 days before surgery or as instructed by your physician. Tylenol or acetaminophen is ok to take within this time frame, but DO NOT take the morning of surgery. For the day of surgery, please make a note of the last date and time that you took each medicine. *If you are prescribed any new medicines between your PAT appointment and your surgery date, pleasecall the PAT office ([phone]) for specific instructions regarding your new medicines.* Yellow - take the day of surgery [place] - hold according to the doctor's instructions or pre-admission testing instructions Current Outpatient Medications Medication Sig Ascorbic Acid (Vitamin C) 500 MG capsule STOP TAKING 7 DAYS BEFORE YOUR SURGERY LAST DOSE DATE AND TIME : buPROPion 200 MG tablet SR 200 mg, 2 TIMES DAILY CONTINUE, but DO NOT take the morning of surgery. LAST DOSE DATE AND TIME : Celecoxib 200 MG capsule 200 mg, 2 TIMES DAILY STOP TAKING 7 DAYS BEFORE YOUR SURGERY LAST DOSE DATE AND TIME : clonazePAM 1 MG Tab Dispersible DAILY Patient taking differently: Take 0.5 tablets by mouth daily. CONTINUE, but DO NOT take the morning of surgery. LAST DOSE DATE AND TIME : Docusate Calcium (STOOL SOFTENER PO) DAILY CONTINUE, but DO NOT take the morning of surgery. LAST DOSE DATE AND TIME : estradiol 0.1 MG/24HR Patch Biweekly PLACE 1 PATCH OVER 96 HOURS ON THE SKIN 2 TIMES A WEEK CONTINUE, but DO NOT take the morning of surgery. LAST DOSE DATE AND TIME : furOSEmide 40 MG tablet 40 mg, 2 TIMES DAILY CONTINUE, but DO NOT take the morning of surgery. LAST DOSE DATE AND TIME : HYDROmorphone PF intrathecal pump DAILY Continue as normal LAST DOSE DATE AND TIME : lidocaine 5 % Patch patch APPLY 1 PATCH TO SKIN ONCE A DAY NEEDED FOR PAIN CONTINUE, but DO NOT take the morning of surgery. LAST DOSE DATE AND TIME : Modafinil 200 MG tablet 200 mg, DAILY CONTINUE, but DO NOT take the morning of surgery. LAST DOSE DATE AND TIME : oxyBUTYnin 15 MG Tab SR 24 HR 15 mg, DAILY CONTINUE, but DO NOT take the morning of surgery. LAST DOSE DATE AND TIME : Pantoprazole [address] tablet DR 40 mg, DAILY CONTINUE AND TAKE THE MORNING OF SURGERY WITH SIP OF WATER LAST DOSE DATE AND TIME : POTASSIUM PO 650 mg, DAILY CONTINUE, but DO NOT take the morning of surgery. LAST DOSE DATE AND TIME : pregabalin 100 MG capsule 200 mg, 3 TIMES DAILY CONTINUE AND TAKE THE MORNING OF SURGERY WITH SIP OF WATER LAST DOSE DATE AND TIME : Rexulti 0.5 MG tablet 0.5 mg, DAILY CONTINUE, but DO NOT take the morning of surgery. LAST DOSE DATE AND TIME : This medicine may not be available through our hospital pharmacy. Please bring this medicine with you on the day of surgery, in it's labeled prescription bottle and give to the nurse upon your arrival. tiZANidine 4 MG tablet 4 mg, EVERY 6 HOURS PRN CONTINUE, but DO NOT take the morning of surgery. LAST DOSE DATE AND TIME : traMADol 50 MG tablet 50 mg, EVERY 6 HOURS PRN CONTINUE AND TAKE THE MORNING OF SURGERY WITH SIP OF WATER IF NEEDED LAST DOSE DATE AND TIME : traZODone 150 MG tablet 150 mg, DAILY AT BEDTIME Continue as normal LAST DOSE DATE AND TIME : traZODone 50 MG tablet 50 mg, DAILY AT BEDTIME Continue as normal LAST DOSE DATE AND TIME : triamcinolone 0.1 % Ointment ointment CONTINUE, but DO NOT take the morning of surgery. LAST DOSE DATE AND TIME : Please refer to your medication list and follow any special instructions noted for those medicines. Check your blood sugar the morning of surgery (if you normally check your blood sugar). THINGS TO BRING WITH YOU THE MORNING OF SURGERY, if Applicable Crutches CPAP (Bring machine, tubing and mask. You do not need to bring any water for your machine.) Rescue Inhaler Careful attention to the following instructions will help ensure your comfort and reduce the possibility of complications. Instructions for the day of your surgery/procedure: 1. DO NOT EAT OR DRINK AFTER MIDNIGHT (this includes gum, mints, lozenges, chewing tobacco and sipsof water or coffee) before your surgery/procedure. * Please eat your regular evening meal before 8pm * Between 8pm until 12am you may only have liquids * Nothing to eat or drink after midnight doing so may cause nausea or vomiting during the procedure, which may cause serious or fatal complications. 2. You may brush your teeth before coming to the hospital. Try not to swallow any water when brushing your teeth. 3. Follow bathing and CHG wipe instructions below unless otherwise instructed by your physician. 4.Do not use make-up (cosmetics), aerosol sprays, perfumes, skin creams or lotions. Any make-up, nail cymro and lipstick will need to be removed before surgery. Hospital staff needs to see your natural coloring to assess and monitor any changes. 5. Do not shave body hair 3 days prior to your procedure. Men may shave facial hair as usual. 6. Wear clothing that is comfortable and easy to remove and put on. 7. YOU ARE NOT PERMITTED TO DRIVE HOME FOLLOWING YOUR SURGERY/PROCEDURE. You MUST have a responsible adult drive you home, as well as to help you listen to post-op instructions, as you may have trouble remembering due to anesthesia. Please make sure a responsible adult is with you for at least 24 hours after surgery. The anesthesia may affect your judgment, coordination and reaction time. 8. Leave all valuables and large amounts of money at home. Do not wear any jewelry including fingerrings, navel rings, earrings, toe rings, tongue rings or any type of body piercing jewelry. For your safety, you must remove all jewelry items prior to your procedure. Your family will be responsiblefor your valuables. [employer] will not be responsible for lost items. 9. Dentures, hearing aids, contact lenses and glasses cannot be worn during your procedure. If you use any of these items, please bring their cases with you for proper storage. [employer] will not be responsible for lost articles. 10. You will consult with anesthesia personnel the day of surgery. Anesthesia personnel will ask you important questions and explain the type of anesthesia you will be receiving, how it is administered, and the risks. You will have an opportunity to have all of your questions answered. 11. You may have two (2) visitors with you on the day of surgery and those visitors must be screened upon arrival and must adhere to the mask policy. No visitors under the age of 18. A VISITOR THAT PRESENTS WITH RESPIRATORY SYMPTOMS WILL NOT BE PERMITTED. 12. If you develop a cold, persistent cough, sore throat, fever or any other illness within two days of surgery, please notify your physician or tell the nurse as soon as you arrive at the hospital. If you experience any other health changes between your most recent visit to your surgeon and the day of the surgery, notify your physician. If you suspect you are , please notify your physician. Anesthesia and medications may be harmful to the developing fetus. 13. No alcohol during the 48-hours prior to your procedure. No illicit drugs during the 5 days prior to your procedure. 14. Do not smoke after midnight the night before your procedure. If you are a smoker, our Surgery Department requests you quit or cut down at least 24 to 48 hours prior to your surgery/procedure. This will reduce your risk of respiratory and anesthesia complications. You will not be permitted to smoke at the hospital. 15. Any legal documents should not be signed until 24 hours after sedation. 16. You will receive discharge instructions before leaving the hospital and copies of the information will be placed in a folder for you to take home. It is important for you, and anyone assisting with your care, to understand these instructions. 17. We will call you after your procedure to see how you are doing. Please call your doctor with any questions or concerns. DIRECTIONS: Park in the [facility] facing [address]. Enter through the front entrance and sign in at the Registration Desk at the [facility]. Thank you for allowing us the privilege to care for you! Thank you for allowing us the privilege to care for you! documented in this encounter Progress Notes * Mayra Scales RN - 07/09/2025 11:00 AM EDT PAT- ADDITIONAL QUESTIONS Reviewed medication list with patient, asked and added any additional medicines, vitamins, supplements and diet pills or appetite suppressants to the patient Med Review. Also Reconciled Medications from outside sources to Med Review. Patient verified Med Review is accurate. yes IF pt is taking GLP-1 or 2 Agonists: Weekly Medicine: Stop 5 days before surgery (Dr Garrido and Dr Ho require patients who are having TOTAL joint replacements to stop 14 days before surgery, but same liquid diet myra) Daily Medicine: Stop 24 hours before surgery Does the patient have N/V (r/t to Glp 1 or 2), Diabetes >5yrs, or dx of Gastroparesis? If so, they may only have a liquid diet 24 hours before surgery and nothing to eat or drink after midnight on the night before surgery. na HISTORY OF ANGIOEDEMA IF YES, TRIGGERS? C1-esterase inhibitor (C1-INH) gene? no PATIENT HISTORY OF BLOOD CLOTS no FAMILY HISTORY OF BLOOD CLOTS OR BLOOD DISORDER Father and paternal aunt with blood clots-have unknown kind of clotting disorder ACTIVITY TOLERANCE (MET LEVEL) >4mets ANY SYMPTOMS OF RECENT COUGH/ COLD/ FLU/ PNEUMONIA/ FEVER? no CHEST PAIN (SEE ADDITIONAL CHEST PAIN QUESTIONNAIRE IF APPLICABLE) no HISTORY OF HEART CATH/STENT PLACEMENT no PATIENT HISTORY OF ANESTHESIA COMPLICATION (PONV, PROLONGED SEDATION, MALIGNANT HYPERTHERMIA, etc. ) Post-op n/v FAMILY HISTORY OF ANESTHESIA COMPLICATION (PONV, PROLONGED SEDATION, MALIGNANT HYPERTHERMIA, etc. ) no MEDICAL CLEARANCE, CARDIOLOGY CLEARANCE no DIFFICULT IV PLACEMENT No, left is better LIMB RESTRICTIONS no MEDICAL IMPLANTS (DIABETIC, NERVE STIMULATORS, POWER PORTS, LOOP RECORDER, ETC) Pain pump for back-reservoir in right abdomen; screw left foot; hardware in the back; left hip prosthesis, right knee prosthesis, lens bilateral HISTORY OF ANTIBIOTIC RESISTANT BACTERIAL INFECTION (MRSA, C-DIFF) no VISION (glasses, contacts, or other impairments) Reading glasses HEARING AIDS OR ANY TROUBLE HEARING no DIFFICULTY SWALLOWING no DENTAL APPLIANCES OR PROBLEMS (dentures, partials, loose teeth, missing teeth, broken teeth, caps or crowns) Missing right lower, caps left lower BETA KENYON USE no STEROIDS IN THE PAST YEAR no HISTORY OF BLOOD TRANSFUSION/REACTION no CULTURAL OR ALEVISM BELIEFS THAT WILL AFFECT CARE no DIETARY RESTRICTIONS no CONCERNS FOR PERSONAL SAFETY no Have you been diagnosed with a concussion in the past 6 months? no ADVANCE DIRECTIVES Yes, not on record IF PATIENT HAS NOT BEEN DIAGNOSED WITH SLEEP APNEA PLEASE COMPLETE STOP-BANG STOP Do you SNORE loudly (louder than talking or loud enough to be heard through closed doors)? No cpap Has anyone OBSERVED you stop breathing during your sleep? Do you often feel TIRED, fatigued, or sleepy during daytime? Do you have or are you being treated for high blood PRESSURE? BMI more than 35kg/m2? AGE over 50 years old? NECK circumference > 16 inches (40 cm)? GENDER: Male? TOTAL SCORE PT ACCEPTED REFERRAL High risk of ANJU: Yes 5-8 Intermediate risk of ANJU: Yes 3-4 Low risk of ANJU: Yes 0-2 * See DEPARTMENT OF SURGERY AND ANESTHESIA REFERRAL FOR SLEEP STUDY AND/OR PULMONARY CONSULT paper form signed by patient in chart. Verified procedure and surgery date with patient. Reviewed pt history and medications with patient.Pt was given instructions for upcoming surgery and given opportunity to ask questions. Pt verbalized understanding of instructions. documented in this encounter Plan of Treatment Upcoming Encounters Date Type Department Care Team (Latest Contact Info) Description 07/24/2025 2:15 PM EDT Hospital Encounter [address] [address] Kyrie Saeed MD [address] [address] Macromastia 07/24/2025 2:15 PM EDT Anesthesia Event [address] [address] Slava Sorensen, EDGE FINISHER-LOG DECK TENDER [address] [place] [address] 07/24/2025 2:15 PM EDT - 07/24/2025 4:00 PM EDT Surgery [address] [id number] Kyrie Saeed MD [address] [address] BREAST REDUCTION *1ST ASST* Scheduled Procedures Name Priority Associated Diagnoses Date/Ti me BREAST REDUCTION Macromastia 07/24/2025 2:15 PM EDT documented as of this encounter Procedures Procedure Name Priority Date/Time Associated Diagnosis Comments HC CBC EDIFF & PLATELET Today 07/09/2025 12:14 PM EDT Pre-op testing COMPREHENSIVE METABOLIC PANEL Today 07/09/2025 12:14 PM EDT Pre-op testing ECG Routine 07/09/2025 11:28 AM EDT Pre-op testing documented in this encounter Results * (ABNORMAL) CBC, EDIF, PLATELET (07/09/2025 12:14 PM EDT) WBC (WHITE BLOOD COUNT) 4.7 3.6 - 11.0 10*3/uL [address] RBC 3.74(L) 4.0 - 5.4 10*6/uL [address] HEMOGLOBIN (HGB) 9.8(L) 12.0 - 16.0 G/DL [address] HEMATOCRIT (HCT) 29.6(L) 36.0 - 48.0 % [address] Mean Cell Volume 79.0(L) 80.0 - 100.[address] Mean Cell HGB 26.2 26.0 - 35.[address] Mean Cell HGB Concentration 33.2 27.0 - 37.0 G/DL [address] RBC Distribution 17.6(H) 11.5 - 14.5 % [address] PLATELET COUNT 296 130 - 400 10*3/uL [address] Mean Platelet Volume 7.5 7.4 - 11.[address] FL [address] DIFFERENTIAL TYPE AUTO DIFF % ON [address] NEUTROPHILS 53.4 37.0 - 75.0 % [address] LYMPHOCYTE 35.4 20.0 - 55.0 % [address] MONOCYTE % 9.1 0.0 - 10.0 % [address] EOSINOPHIL % 1.6 0.0 - 11.0 % [address] BASOPHIL % 0.5 0.0 - 2.0 % [address] Absolute Neutrophil Count 2.5 1.4 - 6.5 10*3/uL [address] LYMPHOCYTES, ABSOLUTE 1.7 1.2 - 3.4 10*3/uL [address] MONOCYTES, ABSOLUTE 0.4 0.0 - 0.7 10*3/uL [address] ABSOLUTE EOSINOPHIL COUNT 0.1 0.0 - 0.7 10*3/uL [address] ABSOLUTE BASOPHIL COUNT 0.0 0.0 - 0.2 10*3/uL [address] Blood 07/09/2025 12:1 4 PM EDT 07/09/2025 12:17 PM EDT us Danny Perera DO HEMATOLOGY ORDERABLES Final Res ult [address] [address] * (ABNORMAL) COMPREHENSIVE METABOLIC PANEL (07/09/2025 12:14 PM EDT) Glucose 94 70 - 100 MG/DL [address] Comment: NORMAL <100 mg/dL PREDIABETES 101-126 mg/dL DIABETES 126 mg/dL or higher BUN 16 7 - 20 mg/dL [address] CREATININE SERUM 0.59(L) 0.70 - 1.20 mg/dL [address] SODIUM 137 137 - 145 MMOL/L [address] Potassium 4.3 3.5 - 5.1 MMOL/L [address] CHLORIDE 97(L) 98 - 107 MMOL/L [address] Comment:Please note: Triglyc eride levels of 600mg/dL or higher may positively bias chloride results by approximately 2.1 mmol CALCIUM 9.4 8.4 - 10.2 mg/dL [address] PROTEIN, TOTAL 6.6 6.3 - 8.2 g/dL [address] Albumin 3.8 3.5 - 5.0 g/dL [address] BILIRUBIN, TOTAL 0.1(L) 0.2 - 1.3 mg/dL [address] AST 19 14 - 36 U/L [address] ALKALINE PHOSPHATASE 59 38 - 126 U/L [address] CARBON DIOXIDE (CO2) 33(H) 22 - 30 MMOL/L [address] A/G Ratio 1.[address] ALT 10 <35 U/L [address] ESTIMATED GFR 113 ml/min/1. 73sq.m [address] GFR COMMENT Average GFR for 50-59 years old = 93. [address] Comment: Chronic Kidney disease, GFR = <60. Kidney failure, GFR = <15. The GFR estimate is not adjusted for extreme body surface area or acute process, nor has it been validated for women or ethnic groups other than and . MDRD Equation Blood 07/09/2025 12:1 4 PM EDT 07/09/2025 12:17 PM EDT us Danny Perera DO CHEMISTRY ORDERABLES Final Resu lt [address] [address] * ECG (07/09/2025 11:28 AM EDT) 07/09/2025 11:2 8 AM EDT 07/09/2025 12:17 PM EDT us Danny Perera DO ECG ORDERABLES Final Result RADIOLOGY documented in this encounter Visit Diagnoses Diagnosis Pre-op testing- Primary Preoperative examination, unspecified Macromastia Hypertrophy of breast documented in this encounter Care Teams Hvac Sheet Metal Installer Relationship Specialty Start Date End Date Krystal Lamb PA [address] [address] PCP - General Physician Lay Up Operator 01/02/25 documented as of this encounter
[2025-07-14 17:04] VITALS: BP 104/54; PULSE 61; TEMP 37; O2SAT 93; BMI 28.4
--- OUTSIDE RECORDS SUMMARY | 2025-07-14 17:09 | XMS_ITS | Clinical Summary ---
Author Organization [facility] Address [address] [place] [address] Care Team Providers Care Magnaflux Operator Name Role Phone Nany Worley MD Primary Care Provider [phone] Allergies Active Allergy Reactions Criticality Noted Date Comments Dextromethorphan-Bupropion Er Headache Low 2024 Feeling Spacey Duloxetine Hcl Other Low 11/27/2024 Excessive sweating Hydromorphone 03/10/2023 Other Reaction(s): Unknown Medications lidocaine (Lidoderm) 5 % patch APPLY 1 PATCH TO SKIN ONCE A DAY NEEDED FOR PAIN 03/09/20 24 Active Potassium Gluconate ER 595 MG tablet controlled-rele ase Take by mouth Daily Active tiZANidine (Zanaflex) 4 MG tablet Take 4 mg by mouth 3 (three) times a day as needed for muscle spasms 09/03/20 24 Active celecoxib (CeleBREX) 200 MG capsule TAKE 1 CAPSULE BY MOUTH TWICE A DAY NEEDED FOR PAIN 10/25/19 25 Active estradiol (Vivelle-DOT) 0.1 MG/24HRIndicati ons:Hot flashes due to menopause Place 1 patch over 96 hours on the skin 2 (two) times a week 24 patch 3 02/27/20 25 026 Active traZODone (Desyrel) 50 MG tabletIndicatio ns:Primary insomnia Take 1 tablet (50 mg) by mouth as needed at bedtime for sleep 30 tablet 04/09/20 25 Active pantoprazole (ProtoNix) 40 MG EC tabletIndicatio ns:Gastroesopha geal reflux disease without esophagitis Take 1 tablet (40 mg) by mouth in the morning. Do not crush, chew, or split. 90 tablet 3 05/07/20 25 Active oxybutynin XL (Ditropan-XL) 15 MG 24 hr tablet Take 15 mg by mouth Daily 06/08/20 25 Active furosemide (Lasix) 40 MG tabletIndicatio ns:Edema, unspecified type Take 1 tablet (40 mg) by mouth Daily 06/08/20 25 Active Brexpiprazole (Rexulti) 0.5 MG tabletIndicatio ns:Mild episode of recurrent major depressive disorder Take 0.25 mg by mouth Daily 06/08/20 25 Active clonazePAM (KlonoPIN) 1 MG tabletIndicatio ns:Sleep disturbance Take 1 tablet (1 mg) by mouth at bedtime 30 tablet 06/15/20 25 Active buPROPion SR (Wellbutrin SR) 200 MG 12 hr tabletIndicatio ns:Depressive disorder Take 1 tablet (200 mg) by mouth in the morning and 1 tablet (200 mg) before bedtime. Do not crush, chew, or split. 180 tablet 3 06/18/20 25 Active pregabalin (Lyrica) 200 MG capsuleIndicati ons:Chronic pain syndrome,Numbne ss and tingling of both legs Take 1 capsule (200 mg) by mouth in the morning and 1 capsule (200 mg) in the evening and 1 capsule (200 mg) before bedtime. 90 capsule 2 06/29/20 25 Active modafinil (Provigil) 200 MG tabletIndicatio ns:Obstructive sleep apnea Take 1 tablet (200 mg) by mouth in the morning. 30 tablet 07/05/20 25 025 Active traMADol (Ultram) 50 MG tabletIndicatio ns:Fibromyalgia Take 1 tablet (50 mg) by mouth every 6 (six) hours if needed for severe pain 120 tablet 07/10/20 25 025 Active ferrous sulfate (Fe Tabs) 325 (65 Fe) MG EC tabletIndicatio ns:Iron deficiency anemia, unspecified iron deficiency anemia type Take 1 tablet (325 mg) by mouth in the morning. Take with food. Do not crush, chew, or split. 30 tablet 1 07/12/20 25 025 Active traZODone (Desyrel) 150 MG tabletIndicatio ns:Primary insomnia TAKE 1 TABLET BY MOUTH AT BEDTIME 30 tablet 6 07/13/20 25 Active ferrous sulfate (Fe Tabs) 325 (65 Fe) MG EC tabletIndicatio ns:Arthritis of right knee Take 1 tablet (325 mg) by mouth in the morning. Take with meals. Do not crush, chew, or split.. 30 tablet 1 11/04/19 24 025 Discontinued(Re order) traZODone (Desyrel) 150 MG tabletIndicatio ns:Primary insomnia Take 1 tablet (150 mg) by mouth at bedtime 30 tablet 3 03/26/20 25 025 Discontinued clonazePAM (KlonoPIN) 1 MG tabletIndicatio ns:Sleep disturbance TAKE 1 TABLET BY MOUTH AT BEDTIME 30 tablet 04/23/20 25 025 Discontinued(Re order) pregabalin (Lyrica) 200 MG capsuleIndicati ons:Chronic pain syndrome,Numbne ss and tingling of both legs TAKE 1 CAPSULE IN THE MORNING, 1 CAPSULE IN THE EVENING, AND 1 CAPSULE BEFORE BEDTIME. 90 capsule 05/14/20 25 025 Discontinued traMADol (Ultram) 50 MG tabletIndicatio ns:Fibromyalgia Take 1 tablet (50 mg) by mouth every 6 (six) hours if needed for severe pain 120 tablet 05/18/20 25 025 Discontinued modafinil (Provigil) 200 MG tabletIndicatio ns:Obstructive sleep apnea Take 1 tablet (200 mg) by mouth in the morning. 30 tablet 06/04/20 25 025 Discontinued ferrous sulfate (Fe Tabs) 325 (65 Fe) MG EC tabletIndicatio ns:Iron deficiency anemia, unspecified iron deficiency anemia type Take 1 tablet (325 mg) by mouth in the morning. Take with meals. Do not crush, chew, or split. 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 Reviewed poissble complications of diabetes including, loss of vision, kidney failure and increased risk of heart attacks and stroke. We made recommendations on how to control your blood sugars, and minimize your risk of these complications. We discussed your current barriers to a healthy living and importance of healthy diet and exercise. Myopathy 10/19/2024 Myalgia 10/19/2024 Ankle swelling, left 05/23/2024 Edema 05/23/2024 Tension headache 05/23/2024 Assessment & Plan (05/23/2024 9:42 AM EDT): Has tried Nurtec in the past. Ineffective. More likely Tension Type 2 diabetes mellitus without complications 0 05/23/2024 Assessment & Plan (05/23/2024 9:43 AM EDT): Last A1c was 5.8. Diet Controlled No Tobacco use Follow ADA 1800 diet low carbohydrate Continue Med Compliance Goal LDL less than 100 Goal BP 130/80 Goal HgbA1c < 7.0% Monitor Feet, monitor for infection Needs Exercise Yearly eye exams Prior to your visit today we reviewed your chart and outlined testing and treatment needed for your care. Reviewed poissble complications of diabetes including, loss of vision, kidney failure and increased risk of heart attacks and stroke. We made recommendations on how to control your blood sugars, and minimize your risk of these complications. We discussed your current barriers to a healthy living and importance of healthy diet and exercise. Positive SASCHA (antinuclear antibody) 05/23/2024 Acute cystitis without hematuria 01/31/2024 Assessment & Plan (01/31/2024 9:55 AM EDT): Add Probiotic to help replenish the good bacteria that are destroyed by the Antibiotics Florastor Florajen Align or try Activia in Yogurt Probiotics reduce the risk of antibiotic induced diarrhea Pyelonephritis is an ascending infection from the bladder to the kidneys. This can make people very ill. Symptoms include fevers, High HR, Lo BP and severe nausea and vomiting and back pain, could be pyelonephritis. Go to ER for fluids should the symptoms worsen. Frequency of urination 01/31/2024 Acute pain of right knee 12/20/2023 Asymptomatic microscopic hematuria 11/16/2023 Difficulty waking 11/16/2023 Urinary hesitancy 11/16/2023 Overweight (BMI 25.0-29.9) 11/16/2023 Bilateral lower extremity edema 09/07/2023 Anemia 05/26/2023 Tremor 05/26/2023 Excessive sweating 05/26/2023 Abnormal blood chemistry 03/09/2023 Acute non-recurrent maxillary sinusitis 03/09/20 23 Assessment & Plan (11/14/2024 4:45 PM EST): Add Probiotic to help replenish the good bacteria that are destroyed by the Antibiotics Florastor Florajen Align or try Activia in Yogurt Probiotics reduce the risk of antibiotic induced diarrhea Adjustment disorder with depressed mood 03/09/20 23 Allergic rhinitis 03/09/2023 Carpal tunnel syndrome, bilateral 03/09/2023 Cognitive impairment 03/09/2023 Constipation by delayed colonic transit 03/09/20 23 Constipation 03/09/2023 Difficulty walking 03/09/2023 Esophageal reflux 03/09/2023 Chronic pain syndrome 03/09/2023 Fibromyalgia 03/09/2023 Hand weakness 03/09/2023 History of hip replacement, total 03/09/2023 Hot flashes due to menopause 03/09/2023 Glucose intolerance (impaired glucose tolerance) 03/09/2023 Incoordination 03/09/2023 Arthritis of left knee 03/09/2023 Arthritis of right knee 03/09/2023 Internal derangement of left knee 03/09/2023 Internal derangement of right knee 03/09/2023 Lyme disease 03/09/2023 Memory loss 03/09/2023 Migraine without aura 03/09/2023 Mucocele, buccal 03/09/2023 Numbness and tingling of both legs 03/09/2023 Obstructive sleep apnea 03/09/2023 Peripheral neuropathy 03/09/2023 Excessive sleepiness 03/09/2023 Rash 03/09/2023 Reflux esophagitis 03/09/2023 Scoliosis 03/09/2023 Spinal stenosis of lumbar re gion without neurogenic claudication 03/09/2023 Spondylosis 03/09/2023 [place] (stress urinary incontinence, female) 2022 Systemic lupus erythematosus, unspecified 2022 Assessment & Plan (11/14/2024 4:41 PM EST): F/Up with rheumatology Assessment & Plan (05/23/2024 9:43 AM EDT): Would Benefit from seeing rheumatology Thyroid nodule 03/09/2023 Unspecified inflammatory spondylopathy, cervical region 03/09/2023 Urge incontinence of urine 03/09/2023 Vaginal atrophy 03/09/2023 Primary osteoarthritis 08/11/2021 Former smoker 01/03/2020 S/P lumbar fusion 07/23/2016 S/P lumbar laminectomy 07/23/2016 Spinal cord stimulator status 07/23/2016 Spondylolisthesis of lumbar region 07/23/2016 Muscle weakness 05/28/2016 Skin sensation disturbance 04/14/2016 History of gestational diabetes mellitus 016 Postural kyphosis of thoracic region 11/18/2015 Primary insomnia 09/17/2015 Hyperlipidemia 07/05/2013 Assessment & Plan (07/24/2024 1:36 PM EDT): This is a chronic medical condition that is stable since last assessment. No changes in treatment are suggested at this time. Continue Current meds. Depression 02/19/2010 Assessment & Plan (11/14/2024 4:39 PM EST): After 1 week increase Cymbalta to 60mg Continue Wellbutrin Assessment & Plan (07/24/2024 1:52 PM EDT): Needs to be off of Cymbalta for 3 months due to Tachyphylaxis Consider Rexulti Generalized anxiety disorder 10/11/2007 Resolved Problems Problem Noted Date Diagnosed Date Resolved Date Encounter for well adult exa m without abnormal findings 07/24/2024 09/12/2024 Assessment & Plan (07/24/2024 1:35 PM EDT): Modest Alcohol consumption No Tobacco Seat Belt use Exercise Regularly No Text Drive Social Accountability Hot flashes 07/24/2024 09/12/2024 Subacute pansinusitis 03/10/20232022 Mycoplasma infection 03/09/2023 023 Sleep disturbance 03/09/2023 03/06/2025 Streptococcus infection 03/09/202308/12 Encounters Date Type Department Care Team Description 07/13/2025 Refill [facility] [place] [facility] [address] [place] [address] [place] [address] Nany Worley MD Primary insomnia 07/11/2025 Telephone [facility] [address] [place] [address] Nany Worley MD 07/10/2025 [facility] [address] [place] [address] Krystal Lamb PA Fibromyalgia 07/05/2025 Refill [facility] [facility] [address] [place] [address] Krystal Lamb PA Obstructive sleep apnea 06/28/2025 Refill [facility] [address] [place] [address] Nany Worley MD Chronic pain syndrome; Numbness and tingling of both legs 06/21/2025 Results Follow-Up [facility] [place] [facility] [address] [place] [address] Yari Quintanilla LPN Cologuard colon cancer screening 06/15/2025 Refill [facility] [address] [place] [address] Nany Worley MD Sleep disturbance 06/08/2025 9:30 AM EDT Follow-Up [facility] [address] [place] [address] Krystal Lamb, PA Edema, unspecified type; Mild episode of recurrent major depressive disorder 06/08/2025 Travel 06/04/2025 Refill [facility] [address] [place] [address] Krystal Lamb, PA Obstructive sleep apnea 06/03/2025 Refill [facility] [address] [facility] [address] [place] [address] Krystal Lamb, PA Obstructive sleep apnea 05/28/2025 9:45 AM EDT Office Visit [facility] [place] [address] Vamsi Garza, EQUIPMENT MAINTENANCE SUPERINTENDENT Status post total right knee replacement (Primary Dx); Acute pain of right knee 05/28/2025 9:05 AM EDT Ancillary Procedure [facility] [place] [address] 05/28/2025 [facility] [place] [address] Vamsi Garza, YVONNE 05/28/2025 Travel 05/23/2025 Refill [facility] [place] [facility] [address] [facility] [address] [place] [address] Krystal Lamb PA Edema, unspecified type 05/18/2025 Refill [facility] [facility] [address] [facility] [address] [place] [address] Krystal Lamb, PA Fibromyalgia 05/16/2025 Telephone [facility] [facility] [address] [facility] [address] [place] [address] Nany Worley MD 05/14/2025 Refill [facility] [facility] [address] [facility] [address] [place] [address] Judy Campbell NP Chronic pain syndrome; Numbness and tingling of both legs 05/14/2025 Abstract [facility] [place] [address] [address] [place] [address] Nany Worley MD 05/09/2025 Abstract [facility] [place] [address] [place] [address] Nany Worley MD 05/08/2025 Abstract [facility] [place] [address] [place] [address] Nany Worley MD 05/08/2025 Abstract [facility] [place] [address] [place] [address] Nany Worley MD 05/07/2025 2:00 PM EDT Office Visit [facility] [place] [facility] [address] [address] [place] [address] Krystal Lamb PA Type 2 diabetes mellitus with diabetic polyneuropathy, without long-term current use of insulin (HCC) (Primary Dx); Obstructive sleep apnea; Generalized anxiety disorder ; Mild episode of recurrent major depressive disorder ; Gastroesophageal reflux disease without esophagitis; Overweight (BMI 25.0-29.9) 05/07/2025 Bamboo flowsheet [facility] [place] [address] [address] [place] [address] Krystal Lamb PA 05/07/2025 Travel 04/30/2025 Clinisync Result Encounter [facility] External Department Unsolicited Provider, Generic External Data 04/21/2025 Refill [facility] [place] [address] [address] [place] [address] Nany Worley MD Sleep disturbance from Last 3 Months Immunizations Immunization Administration Dates Next Due Influenza, injectable, quadrivalent, preservativ e free 07/14/2023,07/16/2020 Influenza, seasonal, injectable, preservative fr ee 07/24/2024 Influenza, seasonal, intradermal, preservative f ree 07/08/2017,07/22/2016 Family History Medical History Relation Name Comments No Known Problems Brother No Known Problems Daughter Arthritis Father Regino Yates COPD Father Regino Yates Clotting disorder Father Regino Yates Hearing loss Father Regino Yates Heart disease Father Regino Yates epilepsy Father Regino Yates Colon cancer Maternal Grandfather Olvin Scoliosis Mother Ashlyn Long Colon cancer Paternal Grandmother Vijaya DDD Sister 1 Fibromyalgia Sister 1 No Known Problems Son Relation Name Status Comments Brother 1 brother Daughter 2 daughters Father Regino Yates Alive Maternal Grandfather Olvin Alive Mother Ashlyn Long Alive Paternal Grandmother Vijaya Sister 1 Sister 2 Alive Son 1 son Social History Tobacco Use Types Packs/Day Years Used Date Smoking Tobacco: Former Cigarettes 1.5 31.7 0 01/27/1983 - 2014 Smokeless Tobacco: Former Tobacco Cessation:Counseling Given: Not Answered Comments:Started at age 13 Alcohol Use Standard Drinks/Week Comments Not Currently 0 (1 standard drink = 0.6 oz pure alcohol) Caffeine intake: 2-3 cups per day coffee Humiliation, Afraid, Rape, and Kick questionnair e Answer Date Recorded Within the last year, have y ou been afraid of your partner or ex-partner? No 03/06/2025 Within the last year, have y ou been humiliated or emotionally abused in other ways by your partner or ex-partner? No Within the last year, have y ou been kicked, hit, slapped, or otherwise physically hurt by your partner or ex-partner? No 03/06/2025 Within the last year, have y ou been raped or forced to have any kind of sexual activity by your partner or ex-partner? No 03/06/2025 Social Connection and Isolat ion Panel [NHANES] Answer Date Recorded In a typical week, how many times do you talk on the phone with family, friends, or neighbors? More than three times a week 03/06/2025 How often do you get togethe r with friends or relatives? Three times a week 03/06/2025 How often do you attend [facility] or baptism services? More than 4 times per year 03/06/2025 Do you belong to any clubs o r organizations such as zoroastrianism groups, unions, fraternal or athletic groups, or school groups? Yes 03/06/2025 Attends Club or Organization Meetings Not on indira e 03/06/2025 Are you , , di vorced, , never , or living with a partner? 03/06/2025 AUDIT-C Answer Date Recorded Q1: How often do you have a drink containing alcohol? Never 03/06/2025 Q2: How many drinks containi ng alcohol do you have on a typical day when you are drinking? Patient does not drink Q3: How often do you have si x or more drinks on one occasion? Never 03/06/2025 Overall Financial Resource Strain (CARDIA) Answe r Date Recorded How hard is it for you to pa y for the very basics like food, housing, medical care, and heating? Hard 03/06/2025 PHQ-2 Answer Date Recorded Patient Health Questionnaire-2 Score 0 05/07/2025 [facility] - Occupational Stress Questionnaire Answer Date Recorded Do you feel stress - tense, restless, nervous, or anxious, or unable to sleep at night because your mind is troubled all the time - these days? Only a little 03/06/2025 Exercise Vital Sign Answer Date Recorde d On average, how many days pe r week do you engage in moderate to strenuous exercise (like a brisk walk)? 5 days 03/06/2025 On average, how many minutes do you engage in exercise at this level? 20 min 03/06/2025 Hunger Vital Sign Answer Date Recorded Within the past 12 months, y ou worried that your food would run out before you got the money to buy more. Never true 03/06/20 25 Within the past 12 months, t he food you bought just didn't last and you didn't have money to get more. Never true 03/06/2025 PRAPARE - Transportation Answer Date Re corded In the past 12 months, has l ack of transportation kept you from medical appointments or from getting medications? No 02/09 In the past 12 months, has l ack of transportation kept you from meetings, work, or from getting things needed for daily living? No 03/06/2025 Housing Stability Vital Sign Answer Damon e Recorded In the last 12 months, was t here a time when you were not able to pay the mortgage or rent on time? No 11/16/2023 Number of Places Lived in the Last Year Not on f ile 11/16/2023 In the last 12 months, was t here a time when you did not have a steady place to sleep or slept in a skilled nursing (including now)? No 11/16/2023 Housing Stability Vital Sign Answer Damon e Recorded In the last 12 months, was t here a time when you were not able to pay the mortgage or rent on time? No 03/06/2025 Number of Times Moved in the Last Year Not on fi le 03/06/2025 At any time in the past 12 m [facility], were you homeless or living in a skilled nursing (including now)? No 03/06/2025 Comments No Sex and Gender Information Value Date Recorded Sex Assigned at Female 11/22/2024 8:22 AM EST Legal Sex Female 7:21 PM EDT Gender Identity Female 11/22/2024 8:22 AM EST Sexual Orientation Not on file Last Filed Vital Signs Vital Sign Reading Time Taken Comments Blood Pressure 108/66 06/08/2025 9:13 AM EDT Pulse 56 06/08/2025 9:13 AM EDT Temperature 37.1 C (98.8 F) 12/06/2024 10:20 AM EST Respiratory Rate 16 05/07/2025 1:58 PM EDT Oxygen Saturation 95% 06/08/2025 9:13 AM EDT Inhaled Oxygen Concentration - - Weight 89.4 kg (197 lb) 06/08/2025 9:13 AM EDT Height 177.8 cm (5' 10 ) 06/08/2025 9:13 AM EDT Body Mass Index 28.27 06/08/2025 9:13 AM EDT Plan of Treatment Upcoming Encounters Date Type Department Care Team (Late st Contact Info) Description 07/17/2025 2:00 PM EDT Office Visit [facility] [place] [facility] [address] [facility] [address] [place] [address] Krystal Lamb PA [address] [facility] [address] [place] [address] 08/29/2025 9:00 AM EST Office Visit [facility] [facility] [address] [facility] [address] [place] [address] Krystal Lamb PA [address] [facility] [address] [place] [address] 11/22/2025 9:30 AM EST Office Visit [facility] [address] [phone] Vamsi Garza, EQUIPMENT MAINTENANCE SUPERINTENDENT [address] [place] [address] 03/01/2026 10:15 AM EDT Office Visit [facility] [address] [facility] [place] [address] Amarjit Urias, DO [address] [facility] [address] [place] [address] Health Maintenance Due Date Last Done Comments CT Colonography 1971 Colonoscopy 1971 FIT 1971 FOBT 1971 Lung Cancer Screening Shared Decision Making 1971 Sigmoidoscopy 1971 Diabetes: Retinopathy Screening 1981 Influenza Vaccine (#1) 2025 , 07/14/2023, 07/16/2020, Additional history exists Diabetes: Urine Protein Screening 08/01/2025 024 Diabetes: Hemoglobin A1C 08/07/2025 025, 07/24/2024, 11/04/2023, Additional history exists Mammogram 04/30/2026 04/30/2025, 01/10, 02/05/2022, Additional history exists Colorectal Cancer Screening 06/15/2028 FIT-DNA 06/15/2028 06/15/2025, 05/13, 06/09/2022 Goals Goal Patient Goal Type Associated Problems Recent Progress Patient-Stated? Author Help patient manage antidepressant medication Care Plan Patient on antidepressant monitoring plan No Nany Worley MD Baseline PHQ-9 Care Plan Baseline PHQ-9 Nany Vanessa MD Procedures Procedure Name Priority Date/Time Associated Diagnosis Comments LAB COLOGUARD COLON CANCER SCREEN Routine 06/15/2025 9:00 AM EDT Colon cancer screening XR KNEE 1-2 VIEWS RIGHT Routine 05/28/2025 9:00 AM EDT Acute pain of right knee POCT GLYCATED HEMOGLOBIN, TOTAL Routine 05/07/2025 2:02 PM EDT Type 2 diabetes mellitus with diabetic polyneuropathy, without long-term current use of insulin (HCC) MM TOMOSYNTHESIS SCREENING BI 04/30/2025 12:41 PM EDT from Last 3 Months Results * Cologuard?? colon cancer screening (06/15/2025 9:00 AM EDT) NONINV COLON CA DNA+OCC BLD SCRN STL-IMP Negative Negative 06/21/2025 5:37 AM EDT [facility] (CLIA #:[id number]) Comment: The Cologuard (TM) test was performed on this specimen. NEGATIVE TEST RESULT. A negative Cologuard result indicates a low likelihood that a colorectal cancer (CRC) or advanced adenoma (adenomatous polyps with more advanced pre-malignant features) is present. The chance that a person with a negative Cologuard test has a colorectal cancer is less than 1 in 1500 (negative predictive value >99.9%) or has an advanced adenoma is less than 5.3% (negative predictive value 94.7%). These data are based on a prospective cross-sectional study of 10,000 individuals at average risk for colorectal cancer who were screened with both Cologuard and colonoscopy. (Dc Monsivais. et al, N Engl J Med 2014;370(14):1286- 1297) The normal value (reference range) for this assay is negative. COLOGUARD RE-SCREENING RECOMMENDATION: Periodic colorectal cancer screening is an important part of preventive healthcare for asymptomatic individuals at average risk for colorectal cancer. Following a negative Cologuard result, the [place] Cancer Society and U.S. Multi-Society Task Force screening guidelines recommend a Cologuard re-screening interval of 3 years. References: [place] Cancer Society Guideline for Colorectal Cancer Screening: https://www.cancer.org/cancer/brsko-aclcze-tprhfa/ujhdwfifu-hknklsozo-zilhoer/ac s-rec ommendations.html.; Bryant STARKS, Gokul STEWART, Aicha PICKARD, Colorectal Cancer Screening: Recommendations for Physicians and Patients from the U.S. Multi-Society Task Force on Colorectal Cancer Screening , Am J Gastroenterology 2017; 112:2801-2993. TEST DESCRIPTION: Composite algorithmic analysis of stool DNA-biomarkers with hemoglobin immunoassay. Quantitative values of individual biomarkers are not reportable and are not associated with individual biomarker result reference ranges. Cologuard is intended for colorectal cancer screening of adults of either sex, 45 years or older, who are at average-risk for colorectal cancer (CRC). Cologuard has been approved for use by the U.S. FDA. The performance of Cologuard was established in a cross sectional study of average-risk adults aged 50-84. Cologuard performance in patients ages 45 to 49 years was estimated by sub-group analysis of near-age groups. Colonoscopies performed for a positive result may find as the most clinically significant lesion: colorectal cancer [4.0%], advanced adenoma (including sessile serrated polyps greater than or equal to 1cm diameter) [20%] or non- advanced adenoma [31%]; or no colorectal neoplasia [45%]. These estimates are derived from a prospective cross-sectional screening study of 10,000 individuals at average risk for colorectal cancer who were screened with both Cologuard and colonoscopy. (Dc Baldwin al, N Engl J Med 2014;370(14):6944-7050.) Cologuard may produce a false negative or false positive result (no colorectal cancer or precancerous polyp present at colonoscopy follow up). A negative Cologuard test result does not guarantee the absence of CRC or advanced adenoma (pre-cancer). The current Cologuard screening interval is every 3 years. ([place]izen [place] Cancer Society and U.S. Multi-Society Task Force). Cologuard performance data in a 10,000 patient pivotal study using colonoscopy as the reference method can be accessed at the following location: www.exactlabs.com/results. Additional description of the Cologuard test process, warnings and precautions can be found at www.cologuard.com. Stool specimen (specimen) 06/15/2025 9:00 AM EDT 06/16/2025 4:51 PM EDT Amarjit Urias DO LAB MOLECULAR DIAGNOSTICS ORD ERABLES Final Result .[employer] (CLIA #:[id number]) [address] [address], [employer] (CLIA #:[id number]) [address] [place] [address] * XR knee 1 or 2 views right (05/28/2025 9:00 AM EDT) Anatomical Region Laterality Modality Lower Extremities, Knee Right Radiogra phic Imaging Narrative 05/28/2025 12:42 PM EDT Imaging Result: 05/28/2025: Standing AP and LAT of right knee showed surgical position and alignment of prosthetic components without evidence of loosening or wear to the femoral, tibial, or patellar components. The alignment appeared to be anatomic. There was no evidence of accelerated or asymmetric wear to the patellar button or tibial tray. There was no evidence of fracture and/or dislocation. Impression: Stable RT total knee replacement. Vamsi Garza TICKET PRINTER-BODY WIRER Vamsi Garza EQUIPMENT MAINTENANCE SUPERINTENDENT IMG XR PROCEDURES Final Result * POCT Glycated hemoglobin, total (05/07/2025 2:02 PM EDT) Hemoglobin A1C 5.7 Blood 05/07/2025 2:02 PM EDT Krystal CHILDERS POINT OF CARE TEST ENTER/EDIT ORDERABLES Final Result * MM TOMOSYNTHESIS SCREENING BI (04/30/2025 12:41 PM EDT) Anatomical Region Laterality Modality Other 04/30/2025 12:4 1 PM EDT Narrative 04/30/2025 12:42 PM EDT [facility] [place] [id number] Mammography Report Signed Patient: CARMEN ELISE MR#: [id number] : 1970 Acct:[id number] Age/Sex: 55 / F ADM Date: 04/30/25 Loc: MAMMO Attending Dr: AMARJIT URIAS Ordering Physician: AMARJIT URIAS Results: Date of Service: 04/30/25 Follow Up: Procedure(s): MM tomosynthesis screening BI Accession Number(s): [id number] cc: NANY WORLEY ; AMARJIT URIAS Patient Name: CARMEN ELISE MR#: [id number] : 1970 Exam Date: 04/30/2025 Ordering Doctor: DR AMARJIT URIAS RADIOLOGY REPORT PROCEDURE: MM TOMOSYNTHESIS SCREENING BI COMPARISON: MG MAMM SCREEN VAISNHAVI W CAD, 10/21/2018. MG MAMM VAISHNAVI SCRN W CAD DIG, 02/28/2016. MG MAMM VAISHNAVI SCRN W CAD DIG, 08/08/2014. INDICATIONS: Screening Calculator Name NCI Breast Cancer Risk Assessment Tool 5 Year Breast Cancer Risk 0.80% Lifetime Breast Cancer Risk 6.10% Personal Breast Cancer No Personal Ovarian Cancer No Treatments None Family Cancers Aunt-paternal with breast cancer at age 62; Grandmother-paternal with colon cancer at age 63; Grandfather-paternal with colon cancer at age 68. LOCATION: [facility] BREAST COMPOSITION: The breasts are heterogeneously dense, which may obscure small masses. FINDINGS: RIGHT BREAST: No significant suspicious finding. LEFT BREAST: No significant suspicious finding. DIAGNOSTIC CATEGORY 1--NEGATIVE. RECOMMENDATIONS: ROUTINE MAMMOGRAM AND CLINICAL EVALUATION IN 12 MONTHS. PLEASE NOTE: A NORMAL MAMMOGRAM DOES NOT EXCLUDE THE POSSIBILITY OF BREAST CANCER. A CLINICALLY SUSPICIOUS PALPABLE LUMP SHOULD BE BIOPSIED. Dictated by: Douglas Bartlett MD on 04/30/2025 at 12:39 Approved by: Douglas Bartlett MD on 04/30/2025 at 12:41 Dictated By: Douglas Barteltt M.D. Signed By: 04/30/25 1242 DD/ 1241 TD/TT: Drawing Tracer: Procedure Note Radiology, Radiologist, MD - 04/30/2025 [place] [address] Mammography Report Signed Patient: CARMEN ELISE RMR#: [id number] : 1970Acct:[id number] Age/Sex: 55 / FADM Date: 04/30/25 Loc: MAMMO Attending Dr: AMARJIT URIAS Ordering Physician: AMARJIT URIASResults: Date of Service: 04/30/25Follow Up: Procedure(s): MM tomosynthesis screening BI Accession Number(s): [id number] cc: NANY WORLEY ; AMARJIT URIAS Patient Name: CARMEN ELISE MR#: [id number] : 1970 Exam Date: 04/30/2025 Ordering Doctor: DR AMARJIT URIAS RADIOLOGY REPORT PROCEDURE: MM TOMOSYNTHESIS SCREENING BI COMPARISON: MG MAMM SCREEN VAISHNAVI W CAD, 10/21/2018. MG MAMM VAISHNAVI SCRN WCAD DIG, 02/28/2016. MG MAMM VAISHNAVI SCRN W CAD DIG, 08/08/2014. INDICATIONS: Screening Calculator Name NCI Breast Cancer Risk Assessment Tool 5 Year Breast Cancer Risk 0.80% Lifetime Breast Cancer Risk 6.10% Personal Breast Cancer No Personal Ovarian Cancer No Treatments None Family Cancers Aunt-paternal with breast cancer at age 62; Grandmother-paternal with colon cancer at age 63; Grandfather-paternalwith colon cancer at age 68. LOCATION: [facility] BREAST COMPOSITION: The breasts are heterogeneously dense, which may obscure small masses. FINDINGS: RIGHT BREAST: No significant suspicious finding. LEFT BREAST: No significant suspicious finding. DIAGNOSTIC CATEGORY 1--NEGATIVE. RECOMMENDATIONS: ROUTINE MAMMOGRAM AND CLINICAL EVALUATION IN 12 MONTHS. PLEASE NOTE: A NORMAL MAMMOGRAM DOES NOT EXCLUDE THE POSSIBILITY OFBREAST CANCER. A CLINICALLY SUSPICIOUS PALPABLE LUMP SHOULD BE BIOPSIED. Dictated by: Douglas Bartlett MD on 04/30/2025 at 12:39 Approved by: Douglas Bartlett MD on 04/30/2025 at 12:41 Dictated By: Douglas Bartlett M.D. Signed By:04/30/25 1242 DD/ 1241 TD/TT: Drawing Tracer: us Generic External Data Provider [facility] Final Result from Last 3 Months Additional Health Concerns Active Problems Noted Date Diagnosed Date Patient on antidepressant monitoring plan 2024 Baseline PHQ-9 11/14/[address] [place] [address] [facility] Care Teams Magnaflux Operator Relationship Specialty Start Date End Date Nany Worley MD [address] [facility] 110 [place] [address] PCP - General Family Medicine 03/10/23
--- OUTSIDE RECORDS SUMMARY | 2025-07-14 17:09 | XMS_ITS | Encounter Summary ---
Author Organization [facility] Address [address] [place] [address] Care Team Providers Care Language Instructor Name Role Phone Nany Obrien MD Primary Care Provider [phone] Reason for Visit * Reason Comments Med Refill Encounter Details Date Type Department Care Team (Late st Contact Info) Description 07/13/2025 Refill [facility] [place] [facility] [address] [facility] 110 [place] [address] Nany Obrien MD [address] [facility] 110 [place] [address] Primary insomnia Social History Tobacco Use Types Packs/Day Years Used Date Smoking Tobacco: Former Cigarettes 1.5 31.7 0 01/27/1983 - 2014 Smokeless Tobacco: Former Comments:Started at age 13 Alcohol Use Standard [...] week 03/06/2025 How often do you attend [facility] or sikhism services? More than 4 times per year 03/06/2025 Do you belong to any clubs o r organizations such as mormonism groups, unions, fraternal or athletic groups, or [...] Recorded Patient Health Questionnaire-2 Score 0 05/07/2025 [facility] - Occupational Stress Questionnaire Answer Date Recorded [...] place to sleep or slept in a care home (including now)? No 11/16/2023 Housing Stability Vital Sign Answer Damon e Recorded In the last 12 months, was t here a time when you were not able to pay the mortgage or rent on time? No 03/06/2025 Number of Times Moved in the Last Year Not on fi le 03/06/2025 At any time in the past 12 m [facility], were you homeless or living in a care home (including now)? No 03/06/2025 Comments No Sex and Gender Information Value Date Recorded Sex Assigned at Female 11/22/2024 8:22 AM EST Legal Sex Female 7:21 PM EDT Gender Identity Female 11/22/2024 8:22 AM EST Sexual Orientation Not on file documented as of this encounter Plan of Treatment Upcoming Encounters Date Type Department Care Team (Late st Contact Info) Description 07/17/2025 2:00 PM EDT Office Visit [facility] [place] [facility] [address] [place] [address] [place] [address] Krystal Lamb PA [address] [place] [address] [place] [address] 08/29/2025 9:00 AM EST Office Visit [facility] [place] [facility] [address] [place] [address] [place] [address] Krystal Lamb PA [address] [place] [address] [place] [address] 11/22/2025 9:30 AM EST Office Visit [facility] [address] [place] [phone] Vamsi Garza, CERTIFIED ACTIVITIES DIRECTOR [address] [facility], [place] [address] 03/01/2026 10:15 AM EDT Office [facility] [address] [email or web address] [place] [address] Amarjit Whitlock, DO [address] [facility] [address] [place] [address] documented as of this encounter Goals Goal Patient Goal Type Associated Problems Recent Progress Patient-Stated? Author Help patient manage antidepressant medication Care Plan Patient on antidepressant monitoring plan No Nany Obrien MD Baseline PHQ-9 Care Plan Baseline PHQ-9 No Nany Obrien MD documented as of this encounter Visit Diagnoses Diagnosis Primary insomnia Persistent disorder of initiating or maintaining sleep documented in this encounter Additional Health Concerns Active Problems Noted Date Diagnosed Date Patient on antidepressant monitoring plan 2024 Baseline PHQ-9 11/14/2024 documented as of this encounter Care Teams Language Instructor Relationship Specialty Start Date End Date Nany Obrien MD [address] [place] [address] [place] [address] PCP - General Family Medicine 03/10/23 documented as of this encounter
--- OUTSIDE RECORDS SUMMARY | 2025-07-14 17:09 | XMS_ITS | Encounter Summary ---
Author Organization [facility] Address [address] [place] [address] Care Team Providers Care Bank Sales And Service Manager Name Role Phone Nany Obrien MD Primary Care Provider [phone] Encounter Details Date Type Department Care Team (Late st Contact Info) Description 07/24/2024 Abstract [facility] [place] [facility] 112 [facility] 110 [place] [address] Nany Obrien MD 112 [facility] 110 [place], [place] [phone] Social History Tobacco Use Types Packs/Day Years Used Date Smoking Tobacco: Former Cigarettes Q uit: 2015 Smokeless Tobacco: Never Alcohol Use Standard Drinks/Week Comments Not Currently 0 (1 standard drink = 0.6 oz pure alcohol) Caffeine intake: 2-3 cups per day coffee Humiliation, Afraid, Rape, and Kick questionnair e Answer Date Recorded Within the last year, have y ou been afraid of your partner or ex-partner? No 11/16/2023 Within the last year, have y ou been humiliated or emotionally abused in other ways by your partner or ex-partner? No Within the last year, have y ou been kicked, hit, slapped, or otherwise physically hurt by your partner or ex-partner? No 11/16/2023 Within the last year, have y ou been raped or forced to have any kind of sexual activity by your partner or ex-partner? No 11/16/2023 Social Connection and Isolat ion Panel [NHANES] Answer Date Recorded In a typical week, how many times do you talk on the phone with family, friends, or neighbors? More than three times a week 11/16/2023 How often do you get togethe r with friends or relatives? Twice a week 11/16/2023 How often do you attend chur or oriental orthodox services? More than 4 times per year 11/16/2023 Do you belong to any clubs o r organizations such as jehovah's witness groups, unions, fraternal or athletic groups, or school groups? Yes 11/16/2023 How often do you attend meet ings of the clubs or organizations you belong to? Never 11/16/2023 Are you , , di vorced, , never , or living with a partner? 11/16/2023 AUDIT-C Answer Date Recorded Q1: How often do you have a drink containing alcohol? Never 11/16/2023 Q2: How many drinks containi ng alcohol do you have on a typical day when you are drinking? Patient does not drink Q3: How often do you have si x or more drinks on one occasion? Never 11/16/2023 Overall Financial Resource Strain (CARDIA) Answe r Date Recorded How hard is it for you to pa y for the very basics like food, housing, medical care, and heating? Not hard at all 11/16/2023 PHQ-2 Answer Date Recorded Patient Health Questionnaire-2 Score 0 03/31/2023 [facility] - Occupational Stress Questionnaire Answer Date Recorded Do you feel stress - tense, restless, nervous, or anxious, or unable to sleep at night because your mind is troubled all the time - these days? Only a little 11/16/2023 Exercise Vital Sign Answer Date Recorde d On average, how many days pe r week do you engage in moderate to strenuous exercise (like a brisk walk)? 3 days 11/16/2023 On average, how many minutes do you engage in exercise at this level? 130 min 11/16/2023 Hunger Vital Sign Answer Date Recorded Within the past 12 months, y ou worried that your food would run out before you got the money to buy more. Never true 11/16/19 24 Within the past 12 months, t he food you bought just didn't last and you didn't have money to get more. Never true 11/16/2023 PRAPARE - Transportation Answer Date Re corded In the past 12 months, has l ack of transportation kept you from medical appointments or from getting medications? No 03/2024 In the past 12 months, has l ack of transportation kept you from meetings, work, or from getting things needed for daily living? No 11/16/2023 Housing Stability Vital Sign Answer [...] place to sleep or slept in a mcfp (including now)? No 11/16/2023 Comments No Sex and Gender Information Value [...] Visit [facility] [place] [facility] [address] [facility] 110 [place] [address] Krystal Lamb PA [address] [facility] 110 [place] [address] 08/29/2025 9:00 AM EST Office Visit [facility] [place] [facility] [address] [facility] 110 [place] [phone] Krystal Lamb PA [address] [facility] 110 [place] [address] 11/22/2025 9:30 AM EST Office Visit [facility] [address] [place] [address] Vamsi Garza, YVONNE [address] [place] [address] 03/01/2026 10:15 AM EDT Office Visit [facility] [place] [facility] [address] [facility] [place] [address] Amarjit Whitlock, [address] [facility] 210 [place] [address] documented as of this encounter Visit Diagnoses Not on filedocumented in this encounter Care Teams Bank Sales And Service Manager Relationship Specialty Start Date End Date Nany Obrien MD [address] [place] [address] [address] [place] [address] PCP - General Family Medicine 03/10/23 documented as of this encounter
--- OUTSIDE RECORDS SUMMARY | 2025-07-14 17:09 | XMS_ITS | Encounter Summary ---
Author Organization [facility] Address [address] [place] [address] Care Team Providers Care Inbound Sales Manager Name Role Phone Nany Obrien MD Primary Care Provider [phone] Encounter Details Date Type Department Care Team (Late st Contact Info) Description 07/25/2024 Abstract [facility] [place] [facility] 112 [facility] 110 [place] [address] Nany Obrien MD 112 [facility] 110 [place], [place] [phone] Social History Tobacco Use Types Packs/Day Years [...] How often do you attend chur or sabianism services? More than 4 times per year 11/16/2023 Do you belong to any clubs o r organizations such as evangelical groups, unions, fraternal or athletic groups, or [...] Recorded Patient Health Questionnaire-2 Score 0 03/31/2023 [facility] - Occupational Stress [...] place to sleep or slept in a mcc (including now)? No 11/16/2023 Comments No Sex [...] Visit [facility] [place] [facility] [address] [facility] 110 [place] [address] Krystal Lamb PA [address] [facility] 110 [place] [address] 08/29/2025 9:00 AM EST Office Visit [facility] [place] [facility] [address] [facility] [address] [place] [address] Krystal Lamb PA [address] [facility] 110 [place] [address] 11/22/2025 9:30 AM EST Office Visit [facility] [address] [place] [phone] Vamsi Garza, YVONNE [address] [place] [address] 03/01/2026 10:15 AM EDT Office Visit [facility] [address] [facility] [place] [address] Amarjit Whitlock, [address] [facility] 210 [place] [address] documented as of this encounter Visit Diagnoses Not on filedocumented in this encounter Care Teams Inbound Sales Manager Relationship Specialty Start Date End Date Nany Obrien MD [address] [place] [address] [address] [place] [address] PCP - General Family Medicine 03/10/23 documented as of this encounter
--- OUTSIDE RECORDS SUMMARY | 2025-07-14 17:09 | XMS_ITS | Encounter Summary ---
Author Organization [facility] Address [address] [facility] [address], [address] [place] [address] Care Team Providers Care Area Loss Prevention Manager Name Role Phone Nany Obrien MD Primary Care Provider [phone] Encounter Details Date Type Department Care Team (Latest Contact Info) Description 12/29/2020 Transcribe Orders [facility] Pre Access [address] [place], [place] [phone] Lilia Katz MD [address] [place], [place] [phone] Postlaminectomy syndrome, lumbar (Primary Dx) Social History [...] region documented in this encounter Care Teams Area Loss Prevention Manager Relationship Specialty Start Date End Date Nany Obrien MD PCP - General Family Medicine 07/30/17 documented as of this encounter
--- OUTSIDE RECORDS SUMMARY | 2025-07-14 17:09 | XMS_ITS | Encounter Summary ---
Author Organization [facility] Address [address] [place] [address] Care Team Providers Care Revenue Cycle Consultant Name Role Phone Nany Obrien MD Primary Care Provider [phone] Encounter Details Date Type Department Care Team (Late st Contact Info) Description 07/11/2025 Telephone [facility] [place] [facility] [address] [facility] 110 [place] [phone] Nany Obrien MD 112 [facility] 110 [place], [place] [phone] Social History Tobacco Use Types Packs/Day Years [...] week 03/06/2025 How often do you attend chur or confucianist services? More than 4 times per year 03/06/2025 Do you belong to any clubs o r organizations such as faith groups, unions, fraternal or athletic groups, or [...] Recorded Patient Health Questionnaire-2 Score 0 05/07/2025 [facility] - Occupational [...] place to sleep or slept in a [place] (including now)? No 11/16/2023 Housing Stability Vital Sign Answer Damon e Recorded In the last 12 months, was t here a time when you were not able to pay the mortgage or rent on time? No 03/06/2025 Number of Times Moved in the Last Year Not on fi le 03/06/2025 At any time in the past [address] [facility], were you homeless or living in a [place] health [place] facility (including now)? No 03/06/2025 Comments No Sex and Gender Information Value Date Recorded Sex Assigned at Female 11/22/2024 8:22 AM EST Legal Sex Female 7:21 PM EDT Gender Identity Female 11/22/2024 8:22 AM EST Sexual Orientation Not on file documented as of this encounter Miscellaneous Notes * Telephone Encounter - Amena Suarez MA - 07/11/2025 7:51 AM EDT Order faxed to number given documented in this encounter Plan of Treatment Upcoming Encounters Date Type Department Care Team (Late st Contact Info) Description 07/17/2025 2:00 PM EDT Office Visit [facility] [place] [facility] [address] [place] [address] [place] [address] Krystal Lamb PA [address] [place] [address] [place] [address] 08/29/2025 9:00 AM EST Office Visit [facility] [place] [facility] [address] [place] [address] [place] [address] Krystal Lamb PA [address] [place] [address] [place] [address] 11/22/2025 9:30 AM EST Office Visit [facility] [address] [place] [address] Vamsi Garza, YVONNE [address] [place] [address] 03/01/2026 10:15 AM EDT Office Visit [facility] 611 [facility] [place] [address] Amarjit Whitlock, DO [address] [facility] 210 [place] [address] documented as of this encounter Goals Goal Patient Goal Type Associated Problems Recent Progress Patient-Stated? Author Help patient manage antidepressant medication Care Plan Patient on antidepressant monitoring plan No Nany Obrien MD Baseline PHQ-9 Care Plan Baseline PHQ-9 No Nany Obrien MD documented as of this encounter Visit Diagnoses Not on filedocumented in this encounter Additional Health Concerns Active Problems Noted Date Diagnosed Date Patient on antidepressant monitoring plan 2024 Baseline PHQ-9 11/14/2024 documented as of this encounter Care Teams Revenue Cycle Consultant Relationship Specialty Start Date End Date Nany Obrien MD [address] [facility] 110 [place] [address] PCP - General Family Medicine 03/10/23 documented as of this encounter
--- OUTSIDE RECORDS SUMMARY | 2025-07-14 17:10 | XMS_ITS | Encounter Summary ---
Author Organization [facility] Address [address] [place] [address] Care Team Providers Care Director Of Casino Name Role Phone Nany Obrien MD Primary Care Provider Encounter Details Date Type Department Care Team (Late st Contact Info) Description 05/08/2025 Abstract [facility] [place] [facility] [address] [facility] 110 [place] [address] Nany Obrien MD 112 [facility] 110 [place], [place] [id number] Social History Tobacco Use Types Packs/Day Years [...] How often do you attend chur or quaker services? More than 4 times per year 03/06/2025 Do you belong to any clubs o r organizations such as religious groups, unions, fraternal or athletic groups, or [...] Recorded Patient Health Questionnaire-2 Score 0 05/07/2025 [facility] Occupat ional Health - Occupational [...] place to sleep or slept in a snf (including now)? No 11/16/2023 Housing Stability Vital Sign Answer Damon e Recorded In the last 12 months, was t here a time when you were not able to pay the mortgage or rent on time? No 03/06/2025 Number of Times Moved in the Last Year Not on fi le 03/06/2025 At any time in the past 12 m [facility], were you homeless or living in a snf (including now)? No 03/06/2025 Comments No Sex [...] Visit [facility] [place] [address] [facility] [address] [place] [address] Krystal Lamb PA [address] [facility] 110 [place] [address] 08/29/2025 9:00 AM EST Office Visit [facility] [place] [facility] [address] [facility] 110 [place] [address] Krystal Lamb PA [address] [facility] 110 [place] [address] 11/22/2025 9:30 AM EST Office Visit [facility] [address] [facility] [phone] Vamsi Garza, SYBASE DEVELOPER [address] [place] [address] 03/01/2026 10:15 AM EDT Office Visit [facility] [address] [facility] [address] [place] [address] Amarjit Whitlock, DO [address] [facility] 210 [place] [address] documented as of this encounter Goals Goal [...] documented as of this encounter Care Teams Director Of Casino Relationship Specialty Start Date End Date Nany Obrien MD [address] [facility] 110 [place] [address] PCP - General Family Medicine 03/10/23 documented as of this encounter
--- OUTSIDE RECORDS SUMMARY | 2025-07-14 17:10 | XMS_ITS | Encounter Summary ---
Author Organization [facility] Address [address] [place] [address] Care Team Providers Care Container Shop Welder Name Role Phone Nany Obrien MD Primary Care Provider [phone] Encounter Details Date Type Department Care Team (Late st Contact Info) Description 06/23/2023 Abstract [facility] [place] [facility] 112 [facility] 110 [place] [address] Nany Obrien MD 112 [facility] 110 [place] [address] Social History Tobacco Use Types Packs/Day Years Used Date Smoking Tobacco: Never Smokeless Tobacco: Never Alcohol Use Standard Drinks/Week Comments Not Currently 0 (1 standard drink = 0.6 oz pure alcohol) Caffeine intake: 2-3 cups per day coffee AUDIT-C Answer Date Recorded Q1: How often do you have a drink containing alc ohol? Monthly or less 03/31/2023 Q2: How many drinks containi ng alcohol do you have on a typical day when you are drinking? 1 or 2 03/31/2023 Q3: How often do you have si x or more drinks on one occasion? Never 03/31/2023 PHQ-2 Answer Date Recorded Patient Health Questionnaire-2 Score 0 03/31/2023 Comments No Sex and Gender Information Value [...] PM EDT [facility] [place] [facility] [address] [place] [address] [place] [address] Krystal Lamb PA [address] [place] [address] [place] [address] 08/29/2025 9:00 AM EST Office Visit [facility] [place] [facility] [address] [facility] 110 [place] [address] Krystal Lamb PA [address] [place] [address] [place] [address] 11/22/2025 9:30 AM EST Office Visit [facility] 629 [place] [phone] Vamsi Garza, ELECTRICAL LINEWORKER 629 [place] [address] 03/01/2026 10:15 AM EDT Office Visit [facility] 611 [facility] [place] [address] Amarjit Whitlock, DO [address] [facility] 210 [place] [address] documented as of this encounter Visit Diagnoses Not on filedocumented in this encounter Care Teams Container Shop Welder Relationship Specialty Start Date End Date Nany Obrien MD [address] [place] [address] [place] [address] PCP - General Family Medicine 03/10/23 documented as of this encounter
--- OUTSIDE RECORDS SUMMARY | 2025-07-14 17:10 | XMS_ITS | Encounter Summary ---
Author Organization [facility] Address [address] [place] [address] Care Team Providers Care Cathead Operator Name Role Phone Nany Obrien MD Primary Care Provider [phone] Encounter Details Date Type Department Care Team (Late st Contact Info) Description 06/21/2025 Results Follow-Up [facility] [address] [place] [address] [place] [phone] Yari Quintanilla LPN Cologuard colon cancer screening Social History Tobacco Use Types Packs/Day Years [...] week 03/06/2025 How often do you attend [facility]? More than 4 times per year [...] Recorded Patient Health Questionnaire-2 Score 0 05/07/2025 [facility] of Occupat ional Health - Occupational [...] any time in the past 12 m [facility], were you homeless or living in a [...] 2:00 PM EDT Office Visit [facility] [place] [facility] [address] [place] [address] [place] [address] Krystal Lamb PA [address] [place] [address] [place] [address] 08/29/2025 9:00 AM EST Office Visit [facility] [place] [facility] [address] [facility] 110 [place] [address] Krystal Lamb PA [address] [facility] 110 [place] [address] 11/22/2025 9:30 AM EST Office Visit [facility] [address] [place] [place] [address] Vamsi Garza, FRUIT PICKER MACHINE OPERATOR 629 [place] [address] 03/01/2026 10:15 AM EDT Office Visit [facility] [place] [facility] 611 [facility] [place] [address] Amarjit Whitlock, DO [address] [facility] 210 [place] [address] documented as of this encounter Goals Goal [...] documented as of this encounter Care Teams Cathead Operator Relationship Specialty Start Date End Date Nany Obrien MD [address] [facility] 110 [place] [address] PCP - General Family Medicine 03/10/23 documented as of this encounter
--- OUTSIDE RECORDS SUMMARY | 2025-07-14 17:10 | XMS_ITS | Clinical Summary ---
Author Organization [facility] Address [address] [place] [address] Care Team Providers Care Stroboroma Operator Name Role Phone Krystal Lamb Primary Care Provider [phone] Allergies Active Allergy Reactions Criticality Noted Date Comments Duloxetine Hcl Low 11/27/2024 Other Reaction(s): Other Excessive sweating Hydromorphone 09/17/2021 Severe headache, rash Other Reaction(s): Unknown Medications clonazePAM 1 MG Tab Dispersible Take by mouth daily. 4 Active Diazepam 10 MG tablet TAKE 1 TABLET BY MOUTH 45 MINUTES PRIOR TO PROCEDURE AFTER SIGNING CONSENT. 4 Active DULoxetine [address] Particles capsule DR Take 1 capsule by mouth Every night. Active estradiol 0.1 MG/24HR Patch Biweekly PLACE 1 PATCH OVER 96 HOURS ON THE SKIN 2 TIMES A WEEK Active oxyBUTYnin 15 MG Tab SR 24 HR Take 1 tablet by mouth daily. 5 Active furOSEmide 40 MG tablet Take 1 tablet by mouth 2 times daily. Active Modafinil 200 MG tablet Take 1 tablet by mouth daily. 3 025 Active pregabalin 100 MG capsule Take 2 capsules by mouth Three times a day. Active Celecoxib 200 MG capsule Take 1 capsule by mouth 2 times daily. Active Ascorbic Acid (Vitamin C) 500 MG capsule 5 Active Pantoprazole [address] tablet DR Take 1 tablet by mouth daily. Active buPROPion 200 MG tablet SR Take 1 tablet by mouth Twice daily. 4 Active Rexulti 0.5 MG tablet Take 1 tablet by mouth daily. Active traZODone 150 MG tablet Take 1 tablet by mouth at bedtime. Active traZODone 50 MG tablet Take 1 tablet by mouth at bedtime. Active tiZANidine 4 MG tablet Take 1 tablet by mouth Every 6 hours as needed. Active lidocaine 5 % Patch patch APPLY 1 PATCH TO SKIN ONCE A DAY NEEDED FOR PAIN 4 Active traMADol 50 MG tablet Take 1 tablet by mouth Every 6 hours as needed. 8 Active triamcinolone 0.1 % Ointment ointment 4 Active Docusate Calcium (STOOL SOFTENER PO) Take by mouth daily. Active POTASSIUM PO Take 650 mg by mouth daily. Active HYDROmorphone PF intrathecal pump by Intrathecal route daily. Concentration 7.5 mg/mL. Baclofen 1000mcg/ml; Clonidine 150mcg/ml Active Active Problems Problem Noted Date Diagnosed Date Obesity (BMI 30.0-34.9) 01/02/2025 Encounters Date Type Department Care Team Description 07/09/2025 11:00 AM EDT Pre-Operative Nurse Assessment [facility] Pre Admission [address] [place] [address] yKrie Saeed MD Pre-op testing (Primary Dx) 05/29/2025 1:15 PM EDT Office Visit [facility] Pl[facility] [address] [address] Kyrie Saeed MD Macromastia (Primary Dx); Thoracic spine pain from Last 3 Months Family History Medical History Relation Name Comments Bleeding or Clotting Problems Father hx of blood clot and unknown kind of clotting disorder Bleeding or Clotting Problems Paternal Aunt hx of blood clot and unknown kind of clotting disorder Relation Name Status Comments Father Paternal Aunt Social History Tobacco Use Types Packs/Day Years [...] Mass Index 28.41 07/09/2025 11:22 AM EDT Plan of Treatment Upcoming Encounters Date Type Department Care Team (Latest Contact Info) Description 07/24/2025 2:15 PM EDT Hospital Encounter [address] [address] Kyrie Saeed MD [address] [address] Macromastia 07/24/2025 2:15 PM EDT Anesthesia Event [address] [address] Slava Sorensen, CUTTER TENDER-OPTIMIZATION CONSULTANT [address] [place] [address] 07/24/2025 2:15 PM EDT - 07/24/2025 4:00 PM EDT Surgery [address] [address] Kyrie Saeed MD [address] [address] BREAST REDUCTION *1ST ASST* Scheduled Procedures Name Priority Associated Diagnoses Date/Ti me BREAST REDUCTION Macromastia 07/24/2025 2:15 PM EDT Health Maintenance Due Date Last Done Comments [...] 0 02/05/2022, 11/02/2019, 10/21/2018, Additional history exists COVID-19 VACCINE (1 - 2023-2 5 season) 2025 INFLUENZA VACCINE (#1) 2025 , 07/14/2023, 07/16/2020, Additional history exists COLORECTAL CANCER SCREENING DISCUSSION 06/15/2026 06/15/2025, 06/09/2022 POTASSIUM 07/09/2026 07/09/2025 Procedures Procedure Name Priority Date/Time Associated Diagnosis Comments COMPREHENSIVE METABOLIC PANEL Today 07/09/2025 12:14 PM EDT Pre-op testing HC CBC EDIFF & PLATELET Today 07/09/2025 12:14 PM EDT Pre-op testing ECG Routine 07/09/2025 11:28 AM EDT Pre-op testing from Last 3 Months Results * (ABNORMAL) CBC, EDIF, PLATELET (07/09/2025 12:14 PM EDT) WBC (WHITE BLOOD COUNT) 4.7 3.6 - 11.0 10*3/uL [address] RBC 3.74(L) 4.0 - 5.4 10*6/uL [address] HEMOGLOBIN (HGB) 9.8(L) 12.0 - 16.0 G/DL [address] HEMATOCRIT (HCT) 29.6(L) 36.0 - 48.0 % [address] Mean Cell Volume 79.0(L) 80.0 - 100.[address] Mean Cell HGB 26.2 26.0 - 35.[address] Mean Cell HGB Concentration 33.2 27.0 - 37.0 G/DL [address] RBC Distribution 17.6(H) 11.5 - 14.5 % [address] PLATELET COUNT 296 130 - 400 10*3/uL [address] Mean Platelet Volume 7.5 7.4 - 11.[address] DIFFERENTIAL TYPE AUTO DIFF % ON [address] NEUTROPHILS 53.4 37.0 - 75.0 % [address] LYMPHOCYTE 35.4 20.0 - 55.0 % [address] MONOCYTE % 9.1 0.0 - 10.0 % [address] EOSINOPHIL % 1.6 0.0 - 11.0 % [address] BASOPHIL % 0.5 0.0 - 2.0 % [address] Absolute Neutrophil Count 2.5 1.4 - 6.5 10*3/uL [address] LYMPHOCYTES, ABSOLUTE 1.7 1.2 - 3.4 10*3/uL [address] MONOCYTES, ABSOLUTE 0.4 0.0 - 0.7 10*3/uL [address] ABSOLUTE EOSINOPHIL COUNT 0.1 0.0 - 0.7 10*3/uL [address] ABSOLUTE BASOPHIL COUNT 0.0 0.0 - 0.2 10*3/uL [address] Blood 07/09/2025 12:1 4 PM EDT 07/09/2025 12:17 PM EDT us Danny Perera DO HEMATOLOGY ORDERABLES Final Res ult [address] [place] [address] * (ABNORMAL) COMPREHENSIVE METABOLIC PANEL (07/09/2025 12:14 PM EDT) Glucose 94 70 - 100 MG/DL [address] Comment: NORMAL <100 mg/dL PREDIABETES 101-126 mg/dL DIABETES 126 mg/dL or higher BUN 16 7 - 20 mg/dL [address] CREATININE SERUM 0.59(L) 0.70 - 1.20 mg/dL [address] SODIUM 137 137 - 145 MMOL/L [address] Potassium 4.3 3.5 - 5.1 MMOL/L [address] CHLORIDE 97(L) 98 - 107 MMOL/L [address] Comment:Please note: Triglyc eride levels of 600mg/dL or higher may positively bias chloride results by approximately 2.1 mmol CALCIUM 9.4 8.4 - 10.2 mg/dL [address] PROTEIN, TOTAL 6.6 6.3 - 8.2 g/dL [address] Albumin 3.8 3.5 - 5.0 g/dL [address] BILIRUBIN, TOTAL 0.1(L) 0.2 - 1.3 mg/dL [address] AST 19 14 - 36 U/L [address] ALKALINE PHOSPHATASE 59 38 - 126 U/L [address] CARBON DIOXIDE (CO2) 33(H) 22 - 30 MMOL/L [address] A/G Ratio 1.[address] ALT 10 <35 U/L [address] ESTIMATED GFR 113 ml/min/1. 73sq.m [address] GFR COMMENT Average GFR for 50-59 years old = 93. [address] Comment: Chronic Kidney disease, GFR = <60. Kidney failure, GFR = <15. The GFR estimate is not adjusted for extreme body surface area or acute process, nor has it been validated for women or ethnic groups other than and . MDRD Equation Blood 07/09/2025 12:1 4 PM EDT 07/09/2025 12:17 PM EDT Danny Chairez Rico DO CHEMISTRY ORDERABLES Final Resu lt [facility] [address] [place] [address] * ECG (07/09/2025 11:28 AM EDT) 07/09/2025 11:2 8 AM EDT 07/09/2025 12:17 PM EDT us Danny Chairez Rico DO ECG ORDERABLES Final Result RADIOLOGY from Last 3 Months [facility] Medicare Part A Care Teams Stroboroma Operator Relationship Specialty Start Date End Date Krystal Lamb PA [address] [facility] 110 [place] [address] PCP - General Physician Monotyper 01/02/25
--- OUTSIDE RECORDS SUMMARY | 2025-07-14 17:10 | XMS_ITS | Clinical Summary ---
Author Organization [facility] Address [address] [facility] [place] [address] Care Team Providers Care Seed Packer Name Role Phone Ebony Aguirre MD Unavailable Source Comments The following information is NOT included in Care Everywhere downloads:Psychiatric notes, ECG results, Cardiac Rehab notes, Pulmonary Function notes, data from [employer] (includes but not limited toPregnancy data,audiograms, eye exams, pre-surgical evaluation notes, well-child exam data).[facility] Allergies No known active allergies Medications omeprazole (PRILOSEC) 40 MG capsule Take 40 mg by mouth. 11/29/2023 Active oxybutynin (DITROPAN XL) 15 MG XL tablet Take 15 mg by mouth every morning. Active celecoxib (CeleBREX) 200 MG capsule Take 200 mg by mouth daily. 02/13/2023 Active duloxetine (CYMBALTA) 60 MG capsule Take 120 mg by mouth daily. Active estradiol (ESTRACE) 2 MG tablet Take 2 mg by mouth daily. 09/08/2023 Active furosemide (LASIX) 40 MG tablet Take 40 mg by mouth 2 times daily. Active lidocaine (LIDODERM) 5 % patch APPLY 1 PATCH TO SKIN ONCE A DAY NEEDED FOR PAIN Active pregabalin (LYRICA) 200 MG capsule TAKE 1 CAPSULE BY MOUTH IN THE MORNING AND 1 CAPSULE IN THE EVENING AND 1 CAPSULE BEFORE BEDTIME. Active modafinil (PROVIGIL) 200 MG tablet Take 200 mg by mouth every morning. Active tizanidine (ZANAFLEX) 4 MG tablet TAKE 1 TABLET BY MOUTH THREE TIMES A DAY NEEDED FOR MUSCLE SPASM Active clonazePAM (KlonoPIN) 1 MG tablet Take 1 Tablet by mouth at bedtime. 09/08/2023 Active tramadol (ULTRAM) 50 MG tablet Take 50 mg by mouth every 6 hours as needed. 09/08/2023 Active Potassium Gluconate 595 MG TBCR Take by mouth daily. Active trazodone (DESYREL) 50 mg tablet Take 50 mg by mouth at bedtime. Active Immunizations Immunization Administration Dates Next Due Influenza, injectable, quadr ivalent, preservative free (WWB=950) 07/14/2023,07/16/2020 Social History Tobacco Use Types Packs/Day Years Used Date Smoking Tobacco: Never Smokeless Tobacco: Never Tobacco Cessation:Counseling Given: Not Answered [facility] E/T Technologiesities Answer Date Recorded In the past 12 months has [place], [employer], oil, or water [employer] threatened to shut off services in your home? No 06/24/2024 Humiliation, Afraid, Rape, and Kick questionnair e Answer Date Recorded Within the last year, have y ou been afraid of your partner or ex-partner? No 06/24/2024 Within the last year, have y ou been humiliated or emotionally abused in other ways by your partner or ex-partner? No Within the last year, have y ou been kicked, hit, slapped, or otherwise physically hurt by your partner or ex-partner? No 06/24/2024 Within the last year, have y ou been raped or forced to have any kind of sexual activity by your partner or ex-partner? No 06/24/2024 Social Connection and Isolat ion Panel [NHANES] Answer Date Recorded In a typical week, how many times do you talk on the phone with family, friends, or neighbors? More than three times a week 06/24/2024 How often do you get togethe r with friends or relatives? Three times a week 06/24/2024 How often do you attend chur ch or bahai services? More than 4 times per year 06/24/2024 Do you belong to any clubs o r organizations such as episcopal groups, unions, fraternal or athletic groups, or school groups? Yes 06/24/2024 How often do you attend meet ings of the clubs or organizations you belong to? More than 4 times per year 06/24/2024 Are you , , di vorced, , never , or living with a partner? 06/24/2024 Overall Financial Resource Strain (CARDIA) Answe r Date Recorded How hard is it for you to pa y for the very basics like food, housing, medical care, and heating? Not hard at all 06/24/2024 [facility] [place] of Occupat ional Health - Occupational Stress Questionnaire Answer Date Recorded Do you feel stress - tense, restless, nervous, or anxious, or unable to sleep at night because your mind is troubled all the time - these days? Not at all 06/24/2024 Exercise Vital Sign Answer Date Recorde d On average, how many days pe r week do you engage in moderate to strenuous exercise (like a brisk walk)? 3 days 06/24/2024 On average, how many minutes do you engage in exercise at this level? 40 min 06/24/2024 Hunger Vital Sign Answer Date Recorded Within the past 12 months, y ou worried that your food would run out before you got the money to buy more. Never true 06/24/20 24 Within the past 12 months, t he food you bought just didn't last and you didn't have money to get more. Never true 06/24/2024 PRAPARE - Transportation Answer Date Re corded In the past 12 months, has l ack of transportation kept you from medical appointments or from getting medications? No 06/11 In the past 12 months, has l ack of transportation kept you from meetings, work, or from getting things needed for daily living? No 06/24/2024 Housing Stability Vital Sign Answer Damon e Recorded In the last 12 months, was t here a time when you were not able to pay the mortgage or rent on time? No 06/24/2024 Number of Times Moved in the Last Year Not on fi le 06/24/2024 Homeless in the Last Year Not on file 2023 Utilities - Historical Answer Date Aldair rded In the past 12 months has th e electric, gas, oil, or water company threatened to shut off services in your home? No 06/24/2024 Education Answer Date Recorded What is the highest level of school you have completed or the highest degree you have received? Some college, no degree 06/24/2024 Comments Unknown Sex and Gender Information Value Date Recorded Sex Assigned at Female 06/26/2024 5:44 AM EDT Legal Sex Female 9:51 AM EDT Gender Identity Female 06/26/2024 5:44 AM EDT Sexual Orientation Not on file Last Filed Vital Signs Vital Sign Reading Time Taken Comments Blood Pressure 100/62 06/26/2024 9:35 AM EDT Pulse 55 06/26/2024 9:35 AM EDT Temperature 36.8 C (98.3 F) 06/26/2024 9:35 AM EDT Respiratory Rate - - Oxygen Saturation - - Inhaled Oxygen Concentration - - Weight 99.1 kg (218 lb 8 oz) 06/26/2024 9:35 AM EDT Height - - Body Mass Index - - Plan of Treatment Health Maintenance Due Date Last Done Comments Colonoscopy 1971 HIV Test 1986 Hepatitis C Antibody 1989 Tdap Booster 1989 Hepatitis A (HAV) Vaccine (optional start 19+ years) 1990 Hepatitis B (HBV) Vaccine (1 of 3 - 19+ 3-dose series) 1990 Pap Smear 01/14/1992 Cholesterol 01/14/2016 FIT 01/14/2016 Pneumococcal Vaccine(s) (50+ yrs) (1 of 1 - PCV) 2021 Shingles (RZV) Vaccine (1 of 2) 2021 Mammography 02/05/2023 02/05/2022, 10/12, 10/21/2018, Additional history exists CRC Screening 06/09/2025 Cologuard (Stool DNA) 06/09/2025 06/09/2022 COVID-19 Vaccine (1 - 2023-2 5 season) 2025 Influenza Vaccine (#1) 2025 07/14/2023, 2019 Insurance MEDICARE [facility] Care Teams Seed Packer Relationship Specialty Start Date End Date Ebony Aguirre MD [address] [place] [address] Fellow Rheumatology 07/15/24
--- OUTSIDE RECORDS SUMMARY | 2025-07-14 17:10 | XMS_ITS | Clinical Summary ---
Author Organization [facility] Address [address] [place], [place] [id number] Care Team Providers Care Forestry Supervisor Name Role Phone Nany Obrien MD Primary Care Provider [phone] Sterling Pearson MD Unavailable [phone] Allergies No known active allergies Medications Pregabalin [...] 2) 2021 Covid-19 Vaccine (1 - season) 2025 Influenza Vaccine (#1) 2025 Insurance MEDICARE [facility] PPO Care Teams Forestry Supervisor Relationship Specialty Start Date End Date Nany Obrien MD [address] [facility] [address] [place] [address] PCP - General Family Medicine 05/29/16 Sterling Pearson MD [address] [facility] [address] [place] [address] Referring Anesthesiology 05/29/16
--- OUTSIDE RECORDS SUMMARY | 2025-07-14 17:10 | XMS_ITS | Encounter Summary ---
Author Organization [facility] Address [address] [place] [address] Care Team Providers Care Hr Operations Advisor Name Role Phone Nany Obrien MD Primary Care Provider [phone] Reason for Visit * Reason Comments Med Refill Encounter Details Date Type Department Care Team (Late st Contact Info) Description 07/05/2025 Refill [facility] [address] [facility] [address] [place] [address] Krystal Lamb, PA [address] [facility] 110 [place] [address] Obstructive sleep apnea Social History Tobacco Use Types Packs/Day Years [...] week 03/06/2025 How often do you attend [facility] or denominational services? More than 4 times per year 03/06/2025 Do you belong to any clubs o r organizations such as worship groups, unions, fraternal or athletic groups, or [...] Recorded Patient Health Questionnaire-2 Score 0 05/07/2025 [facility] of Occupat ional Health - Occupational Stress [...] money to buy more. Never true 03/06/20 Within the past 12 months, t he [...] in a mcc (including now)? No 11/16/2023 Housing Stability Vital Sign Answer Damon e Recorded In the last 12 months, was t here a time when you were not able to pay the mortgage or rent on time? No 03/06/2025 Number of Times Moved in the Last Year Not on fi le 03/06/2025 At any time in the past 12 m [facility], were you homeless or living in a mcc (including now)? No 03/06/2025 Comments No Sex and Gender Information Value Date Recorded Sex Assigned at Female 11/22/2024 8:22 AM EST Legal Sex Female 7:21 PM EDT Gender Identity Female 11/22/2024 8:22 AM EST Sexual Orientation Not on file documented as of this encounter Miscellaneous Notes * Telephone Encounter - ALVARADO Ramos - 07/05/2025 9:37 AM EDT OARRS reviewed, Rx sent into patient's pharmacy. documented in this encounter Plan of Treatment Upcoming Encounters Date Type Department Care Team (Late st Contact Info) Description 07/17/2025 2:00 PM EDT [facility] [place] [facility] [address] [place] [address] [place] [address] Krystal Lamb PA [address] [facility] 110 [place] [address] 08/29/2025 9:00 AM EST Office Visit [facility] [place] [facility] [address] [email or web address] [address] [place] [address] Krystal Lamb PA [address] [facility] [address] [place] [address] 11/22/2025 9:30 AM EST Office Visit [facility] [address] [place] [phone] Vamsi Garza, YVONNE [address] [place] [address] 03/01/2026 10:15 AM EDT Office Visit [facility] [address] [place] [address] Amarjit Whitlock, [address] [facility] [address] [place] [address] documented as of this encounter Goals Goal Patient Goal Type Associated Problems Recent Progress Patient-Stated? Author Help patient manage antidepressant medication Care Plan Patient on antidepressant monitoring plan No Nany Obrien MD Baseline PHQ-9 Care Plan Baseline PHQ-9 No Nany Obrien MD documented as of this encounter Visit Diagnoses Diagnosis Obstructive sleep apnea Obstructive sleep apnea (adult) (pediatric) documented in this encounter Additional Health Concerns Active Problems Noted Date Diagnosed Date Patient on antidepressant monitoring plan 2024 Baseline PHQ-9 11/14/2024 documented as of this encounter Care Teams Hr Operations Advisor Relationship Specialty Start Date End Date Nany Obrien MD [address] [facility] [address] [place] [address] PCP - General Family Medicine 03/10/23 documented as of this encounter
--- OUTSIDE RECORDS SUMMARY | 2025-07-14 17:10 | XMS_ITS | Encounter Summary ---
Author Organization [facility] Address [address] [place] [address] Care Team Providers Care Mini Bar Attendant Name Role Phone Nany Obrien MD Primary Care Provider [phone] Reason for Visit * Reason Comments Med Refill Encounter Details Date Type Department Care Team (Late st Contact Info) Description 12/27/2023 Refill [facility] [address] [place] [address] Slava Calvert, DO [address] [place] [address] [place] [address] Arthritis of right knee Social History Tobacco Use Types Packs/Day Years [...] 11/16/2023 How often do you attend chur ch or zoroastrian services? More than 4 times per year 11/16/2023 Do you belong to any clubs o r organizations such as uatsdin groups, unions, fraternal or athletic groups, or [...] Recorded Patient Health Questionnaire-2 Score 0 03/31/2023 [facility] of Occupat ional Health - Occupational Stress [...] encounter Miscellaneous Notes * Telephone Encounter - Vamsi Garza NP - 12/27/2023 10:29 AM EDT Patient only needs to use for 1st month documented in this encounter Plan of Treatment Upcoming Encounters Date Type Department Care Team (Late st Contact Info) Description 07/17/2025 2:00 PM EDT Office Visit [facility] [place] [facility] [address] [place] [address] [place] [address] Krystal Lamb PA [address] [facility] [address] [place] [address] 08/29/2025 9:00 AM EST [facility] [place] [facility] 112 [facility] [address] [place] [phone] Krystal Lamb PA 112 [facility] 110 [place] [address] 11/22/2025 9:30 AM EST Office Visit [facility] [address] [place] [phone] Vamsi Garza, CAR SHUNTER [address] [place] [address] 03/01/2026 10:15 AM EDT Office Visit [facility] [address] [place] [address] Amarjit Whitlock, DO [address] [facility] [address] [place] [address] documented as of this encounter Visit Diagnoses Diagnosis Arthritis of right knee documented in this encounter Care Teams Mini Bar Attendant Relationship Specialty Start Date End Date Nany Obrien MD 112 [facility] [address] [place] [address] PCP - General Family Medicine 03/10/23 documented as of this encounter
--- OUTSIDE RECORDS SUMMARY | 2025-07-14 17:10 | XMS_ITS | Encounter Summary ---
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 More than 4 times per year 03/06/2025 Do you belong to any clubs o r organizations such as voodoo groups, unions, fraternal or athletic groups, or [...] Recorded Patient Health Questionnaire-2 Score 0 05/07/2025 [facility] of Occupat ional Health - Occupational Stress [...] place to sleep or slept in a prison (including now)? No 11/16/2023 Housing Stability Vital Sign Answer Damon e Recorded In the last 12 months, was t here a time when you were not able to pay the mortgage or rent on time? No 03/06/2025 Number of Times Moved in the Last Year Not on fi le 03/06/2025 At any time in the past 12 m [facility], were you homeless or living in a prison (including now)? No 03/06/2025 Comments No Sex and Gender Information Value Date Recorded Sex Assigned at Female 11/22/2024 8:22 AM EST Legal Sex Female 7:21 PM EDT Gender Identity Female 11/22/2024 8:22 AM EST Sexual Orientation Not on file documented as of this encounter Miscellaneous Notes * Telephone Encounter - ALVARADO Ramos - 07/10/2025 1:15 PM EDT OARRS reviewed, Rx sent into patient's pharmacy. documented in this encounter Plan of Treatment Upcoming Encounters Date Type Department Care Team (Late st Contact Info) Description 07/17/2025 2:00 PM EDT Office Visit [facility] [place] [facility] [address] [place] [address] [place] [address] Krystal Lamb PA [address] [facility] 110 [place] [address] 08/29/2025 9:00 AM EST Office Visit [facility] [place] [facility] [address] [facility] [address] [place] [address] Krystal Lamb PA [address] [facility] [address] [place] [address] 11/22/2025 9:30 AM EST Office Visit [facility] [address] [place] [phone] Vamsi Garza, YVONNE [address] [place] [address] 03/01/2026 10:15 AM EDT Office Visit [facility] [address] [place] [address] Amarjit Whitlock, [address] [facility] [address] [place] [address] documented as of this encounter Goals Goal Patient Goal Type Associated Problems Recent Progress Patient-Stated? 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
--- OUTSIDE RECORDS SUMMARY | 2025-07-14 17:10 | XMS_ITS | CCD ---
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 Name Role Phone CORKY SCALES Unavailable Unavailable KANDY GOMEZ Unavailable Unavailable Errol Zepeda Primary Care Unavailable Grazyna Worley Primary Care [...] Unavailable MD Grazyna Worley Primary Care Provider MD River Cunha Attending Provider [phone] Sara Hoyos Unavailable AMINTA FLORES Primary Care Physician [phone] Grazyna Worley Primary Care Unavailable Katia Rashid Admitting Unavailable Katia Rashid Attending Unavailable Grazyna Worley Primary Care Unavailable River Cunha Admitting Unavailable River Cunha Attending Unavailable Grazyna Worley Primary Care Unavailable Sara Hoyos Admitting Unavailable Sara Hoyos Attending Unavailable AMINTA FLORES Primary Care Unavailable AMINTA FLORES Referring Unavailable SOCORRO RASHID Attending Unavailab Kavon Espitia Admitting Unavailable Kavon SANTANA Attending Unavailable Kavon SANTANA Referring Unavailable AMINTA FLORES Primary Care Unavailable SOCORRO RASHID Admitting Unavailab abby RASHID, SOCORRO Villalpando Attending Unavailab AMINTA Wilhelm Primary Care Unavailable Grazyna Worley MD Primary Care Provider NEHAL, CARLOS Casillas Referring Unavailable BRUNILDA, GRAZYNA Primary Care Unavailable PALO VERDE, CARLOS Casillas Attending Unavailable PALO VERDE, CARLOS Casillas Referring Unavailable BRUNILDA, GRAZYNA Primary Care Unavailable PALO VERDE, CARLOS Casillas Referring Unavailable BRUNILDA, GRAZYNA Primary Care Unavailable PALO VERDE, CARLOS Casillas Referring Unavailable BRUNILDA, GRAZYNA Primary Care Unavailable PALO VERDE, CARLOS Casillas Admitting Unavailable PALO VERDE, CARLOS Casillas Attending Unavailable BRUNILDA, GRAZYNA Real Primary Care Unavailable NIKHIL ABREU Attending Unavailable BRUNILDA, GRAZYNA Primary Care Unavailable PALO VERDE, CARLOS Casillas Attending Unavailable PALO VERDE, CARLOS Casillas Referring Unavailable BRUNILDA, GRAZYNA Primary Care Unavailable Unavailable Primary Care Provider UnavailEDU Clancy Attending Unavailable PROVIDER, UNKNOWN Admitting Unavailable BRUNILDA, GRAZYNA Referring Unavailable PROVIDER, UNKNOWN Admitting Unavailable PROVIDER, UNKNOWN Attending Unavailable BRUNILDA, GRAZYNA Referring Unavailable PROVIDER, UNKNOWN Admitting Unavailable PROVIDER, UNKNOWN Attending Unavailable NIKHIL GREWAL Referring Unavailable Timothy RANDOLPH, Edu Unavailable Grazyna Worley MD Primary Care Provider [phone] Aminta Parrish Primary Care Provider Grazyna Worley MD Primary Care Provider Susan Badillo APRN Attending Provider GRAZYNA WORLEY Attending Unavailable APLINGHELEN Attending Unavailable APLING, HELEN Houser Referring Unavailable HEMMER, AMINTA Real Attending Unavailable VISCICODY Attending Unavailable HEMMERAMINTA Attending Unavailable BRUNILDAGRAZYNA Attending Unavailable VISCI, CODY Casillas Attending Unavailable VISCICODY Attending Unavailable APLINGHELEN Attending Unavailable HEMMER, AMINTA Real Attending Unavailable STATONJOLEEN Attending Unavailable STATONJOLEEN Referring Unavailable HEMMER, AMINTA Real Attending Unavailable APLINGHELEN Referring Unavailable HEMMER, AMINTA Real Attending Unavailable SURFOLEG DOMINGUEZ Attending Unavailable OLEG SAEED Admitting Unavailable HEMAMINTA KRAUS Primary Care Unavailable OLEG SAEED Referring Unavailable SURFIELDOLEG Attending Unavailable HEMMERAMINTA [facility] Care [facility] Attending Unavailable SELF, SELF Referring Unavailable AMINTA FLORES Primary Care Unavailable [facility] Attending Unavailable AMINTA FLORES Primary Care Unavailable [facility] Referring Unavailable Allergies Allergy Classification Reported Allergen(s) Allergy Type Date of Onset Reaction(s) Facility (20 sources) HYDROmorphone; Translations: [Dilaudid] Drug Allergy 09-17-20 21 Headache, Rash [facility] (1 source) HYDROmorphone Drug Allergy [facility] Repository (2 sources) HYDROmorphone; Translations: [HYDROmorphone] Drug Allergy 09-17-20 [facility] Repository (20 sources) DULoxetine Drug Allergy 11-27-19 Other [facility] Healthcare (4 sources) Dextromethorphan- Bupropion Er Drug Intolerance 06-14-20 25 Headache [facility] Work Phone: Medications Current Medications Medication Drug Class(es) Dates [...] Active amitriptyline hydrochloride 25 mg oral tablet (20 sources) Tricyclic Antidepressant Start: 09-08-2023 End: 09-04-2024 take 1 tablet by mouth once daily at bedtime amitriptyline (Elavil) 25 MG tablet Indications: Adjustment disorder with depressed mood (CMS/HCC) TAKE 1 TABLET BY MOUTH EVERY DAY AT BEDTIME FOR 90 DAYS 100 tablet 3 10/12/2023 Active Start: 12-30-2020 take 1 tablet by liz th at bedtime Amitriptyline HCl - 25 MG Oral Tablet TAKE 1 TABLET AT BEDTIME. Quantity: 0 Refills: 0 Ordered: 27-Jan-2021 DO Start : 30-Dec-2020 Active amoxicillin 500 mg oral capsule (20 sources) Penicillin-class Antibacterial Start: 02-16-2025 End: 03-06-2025 amoxicillin (Amoxil) 500 MG capsule TAKE 4 CAPSULES BY MOUTH 30 MINUTES PRIOR TO NEXT DENTAL VISIT 02/16/2025 03/06/2025 Discontinued (Therapy completed) Start: 12-26-2024 End: 02-23-2025 take 4 tablets by mouth once at mealtime amoxicillin (Amoxil) 500 MG tablet Indications: History of total right knee replacement 4 tabs PO once 30-60 mins before procedure with food 4 tablet 3 12/26/2024 02/23/2025 Discontinued (Therapy completed) Start: 11-14-2024 End: 11-24-2024 take 2 tablets by mouth in the morning amoxicillin (Amoxil) 500 MG tablet Indications: Acute non-recurrent maxillary sinusitis Take 2 tablets (1,000 mg) by mouth in the morning and 2 tablets (1,000 mg) before bedtime. Do all this for 10 days. 40 tablet 11/14/2024 11/24/2024 Start: 01-11-2024 take 4 tablets by mouth once a moxicillin (Amoxil) 500 MG tablet Indications: Primary osteoarthritis of right knee 4 tabs PO once 30-60 mins before procedure 4 tablet 1 05/23/2024 Active Start: 11-16-2023 End: 11-23-2023 take 1 tablet by mouth in the morning amoxicillin (Amoxil) 875 MG tablet Indications: Acute non-recurrent maxillary sinusitis Take 1 tablet (875 mg) by mouth in the morning and 1 tablet (875 mg) before bedtime. Do all this for 7 days. 14 tablet 0 11/16/2023 11/23/2023 Active brexpiprazole 0.5 mg oral tablet (20 sources) Atypical Antipsychotic Start: 06-08-2025 take 0.25 mg by mouth once daily Brexpiprazole (Rexulti) 0.5 MG tablet Indications: Mild episode of recurrent major depressive disorder Take 0.25 mg by mouth Daily 06/08/2025 Active Start: 04-09-2025 End: 06-08-2025 take 1 tablet by mouth once daily Brexpiprazole (Rexulti) 0.5 MG tablet Indications: Mild episode of recurrent major depressive disorder Take 0.5 mg by mouth Daily 28 tablet 3 04/09/2025 06/08/2025 Discontinued (Reorder) Start: 03-06-2025 take 1 tablet by liz th once daily Brexpiprazole (Rexulti) 0.5 MG tablet Indications: Mild episode of recurrent major depressive disorder Take 0.5 mg by mouth Daily 03/06/2025 Active Start: 02-09-2025 End: 03-06-2025 take 1 tablet by mouth once daily Brexpiprazole (Rexulti) 1 MG tablet Indications: Moderate episode of recurrent major depressive disorder (CMS/HCC) Take 1 mg by mouth Daily 90 tablet 1 02/09/2025 03/06/2025 Discontinued (Dose adjustment) Start: 12-26-2024 take 1 tablet by liz th once daily Brexpiprazole (Rexulti) 0.5 MG tablet Indications: Moderate episode of recurrent major depressive disorder (CMS/HCC) Take 0.5 mg by mouth Daily 30 tablet 2 12/26/2024 Active Start: 11-27-2024 take 1 tablet by liz th once daily Brexpiprazole (Rexulti) 0.5 MG tablet Indications: Moderate episode of recurrent major depressive disorder (CMS/HCC) Take 0.5 mg by mouth Daily 30 tablet 2 11/27/2024 Active 12 hr buPROPion hydrochloride 200 mg extended release oral tablet (20 sources) Aminoketone Start: 06-18-2025 take 1 tablet by mouth every twelve hours in the morning buPROPion SR (Wellbutrin SR) 200 MG 12 hr tablet Indications: Depressive disorder Take 1 tablet (200 mg) by mouth in the morning and 1 tablet (200 mg) before bedtime. Do not crush, chew, or split. 180 tablet 3 06/18/2025 Active Start: 09-26-2024 End: 05-07-2025 take 1 tablet by mouth every twelve hours in the morning buPROPion SR (Wellbutrin SR) 200 MG 12 hr tablet Indications: Depressive disorder Take 1 tablet (200 mg) by mouth in the morning and in the evening Do not crush, chew, or split. 180 tablet 3 09/26/2024 05/07/2025 Discontinued (Dose adjustment) Start: 09-12-2024 take 1 tablet by liz th once daily buPROPion XL (Wellbutrin XL) 300 MG 24 hr tablet Indications: Depressive disorder (CMS/HCC) Take 1 tablet (300 mg) by mouth Daily Do not crush, chew, or split. 30 tablet 2 09/12/2024 Active Start: 07-24-2024 End: 07-24-2025 take 1 tablet by mouth every twelve hours in the morning buPROPion SR (Wellbutrin SR) 100 MG 12 hr tablet Indications: Depressive disorder (CMS/HCC) Take 1 tablet (100 mg) by mouth in the morning and 1 tablet (100 mg) before bedtime. Do not crush, chew, or split.. 60 tablet 11 07/24/2024 09/12/2024 Discontinued (Dose adjustment) cefuroxime 500 mg oral tablet (1 source) Cephalosporin Antibacterial take 1 tablet by mouth twice daily cefUROXime (CEFTIN) 500 MG tablet Take 500 mg by mouth 2 times daily 0 Active celecoxib 200 mg oral capsule (20 sources) Nonsteroidal Anti-inflammatory Drug Start: take 1 capsule by mouth twice daily as needed for pain celecoxib (CeleBREX) 200 MG capsule TAKE 1 CAPSULE BY MOUTH TWICE A DAY NEEDED FOR PAIN 10/25/2024 Active Start: 02-13-2023 End: 09-04-2024 take 1 capsule by mouth once daily celecoxib (CeleBREX) 200 MG capsule Take 200 mg by mouth daily. 02/13/2023 Active cephalexin 500 mg oral capsule (3 sources) Cephalosporin Antibacterial Start: 09-14-2023 take 1 capsule by mouth once daily Keflex 500 mg Cap 500 mg = 1 cap(s), Oral, Daily, take one day before procedure and take one day after procedure, # 2 cap(s), Refills(s) 0, Pharmacy: [facility]/pharmacy #[id number], 178, cm, 09/14/23 9:54:00 EST, Height/Length Dosing, 94, kg, 09/14/23 9:54:00 EST, Weight Dosing Start Date: 09/14/23 Status: Ordered clonazePAM 1 mg oral tablet (20 sources) Benzodiazepine Start: 05-12-2025 take 0.5 mg by mouth once daily at bedtime Clonazepam 1 mg tablet Active 0.5 MG PO Daily at bedtime May 12, 2025 12:00am Complies with drug therapy Start: 04-23-2025 End: 06-15-2025 take 1 tablet by mouth at bedtime clonazePAM (KlonoPIN) 1 MG tablet Indications: Sleep disturbance Take 1 tablet (1 mg) by mouth at bedtime 30 tablet 06/15/2025 Active Start: 03-06-2025 End: 05-07-2025 take 1 tablet by mouth at bedtime clonazePAM (KlonoPIN) 0.5 MG tablet Indications: Generalized anxiety disorder Take 1 tablet (0.5 mg) by mouth at bedtime 03/06/2025 05/07/2025 Discontinued (Other) Start: 09-08-2023 End: 03-24-2025 take 1 tablet by mouth at bedtime clonazePAM (KlonoPIN) 1 MG tablet Indications: Sleep disturbance Take 1 tablet (1 mg) by mouth at bedtime 30 tablet 02/22/2025 03/06/2025 Discontinued (Reorder) Start: 08-30-2020 take 1 tablet by liz th twice daily as needed clonazePAM 1 MG Oral Tablet TAKE 1 TABLET TWICE DAILY NEEDED. Quantity: 0 Refills: 0 Ordered: 03-Oct-2020 DO Start : 30-Aug-2020 Active Start: 02-01-2014 clonazePAM 1 M G Tab Dispersible Take by mouth daily. 02/01/2014 Active cloNIDine (3 sources) Central alpha-2 Adrenergic Agonist Start: 09-14-2023 clonidine Start Date: 09/14/23 Status: Ordered Dextromethorphan- Bupropion (1 source) Start: 05-12-2025 take 1 tablet by mouth twice daily Dextromethorphan- Bupropion (Auvelity) 45-105 mg tablet, IR and ER, biphasic Active 1 TAB PO Twice daily May 12, 2025 12:00am Complies with drug therapy Dextromethorphan- buPROPion ER (Auvelity) 45-105 MG tablet controlled-releas e (13 sources) Start: 05-07-2025 take 1 tablet by mouth in the morning Dextromethorphan- buPROPion ER (Auvelity) 45-105 MG tablet controlled-releas e Indications: Mild episode of recurrent major depressive disorder Take 1 tablet by mouth in the morning and 1 tablet in the evening. 180 tablet 3 05/07/2025 Active Start: 05-07-2025 End: 05-07-2025 take 45-105 mg by mouth in the morning Dextromethorphan-buPROPion ER (Auvelity) 45-105 MG tablet controlled-release Indications: Mild episode of recurrent major depressive disorder Take 1 tablet by mouth in the morning. 90 tablet 3 05/07/2025 05/07/2025 Discontinued diazePAM 10 mg oral tablet (2 sources) Benzodiazepine Start: 05-23-2024 Diazepam 10 MG tablet TAKE 1 TABLET BY MOUTH 45 MINUTES PRIOR TO PROCEDURE AFTER SIGNING CONSENT. 05/23/2024 Active 84 hr estradiol 0.52974 mg/hr transdermal system (20 sources) Estrogen Start: 08-14-2024 End: 02-26-2026 estradiol (Vivelle-DOT) 0.1 MG/24HR Indications: Hot flashes due to menopause Place 1 patch over 96 hours on the skin 2 (two) times a week 24 patch 3 02/26/2025 02/26/2026 Active Start: 09-08-2023 End: 07-24-2024 take 1 tablet by mouth once daily estradiol (ESTRACE) 2 MG tablet Take 2 mg by mouth daily. 09/08/2023 Active Start: 12-04-2020 take 1 tablet by liz th once daily Estradiol 0.5 MG Oral Tablet TAKE 1 TABLET DAILY. Quantity: 0 Refills: 0 Ordered: 02-Jan-2021 DO Start : 04-Dec-2020 Active take 1 tablet by liz th every twenty-four hours Estradiol 2 MG 1 tablet Orally Once a day Active estrogens, conjugated (fci) 0.625 mg oral tablet (9 sources) Estrogen Start: 07-24-2024 End: 07-24-2025 take 1 tablet by mouth once daily estrogens, conjugated, (Premarin) 0.625 MG tablet Indications: Hot flashes Take 1 tablet (0.625 mg) by mouth Daily Take daily for 21 days then do not take for 7 days. 30 tablet 11 07/24/2024 08/11/2024 Discontinued ferrous sulfate 325 mg delayed release oral [...] Apr, Active furosemide 40 mg oral tablet (20 sources) Loop Diuretic Start: 05-23-2025 End: 06-08-2025 take 1 tablet by mouth once daily furosemide (Lasix) 40 MG tablet Indications: Edema, unspecified type Take 1 tablet (40 mg) by mouth Daily 06/08/2025 Active Start: 12-25-2024 take 1 tablet by liz th at bedtime furosemide (Lasix) 40 MG tablet Indications: Edema, unspecified type TAKE 1 TABLET (40 MG) BY MOUTH IN THE MORNING AND AT BEDTIME 60 tablet 3 12/25/2024 Active Start: 08-21-2024 take 1 tablet by liz th at bedtime furosemide (Lasix) 40 MG tablet Indications: Edema, unspecified type TAKE 1 TABLET (40 MG) BY MOUTH IN THE MORNING AND AT BEDTIME 60 tablet 3 08/21/2024 Active Start: 06-30-2023 End: 06-22-2024 take 1 tablet by mouth in the [...] 01-Feb-2021 Active take 2 tablets by mo [facility] twice daily furosemide (LASIX) 20 mg tablet Take 2 tablets (40 mg total) by mouth 2 (two) times a day. 0 Active HYDROmorphone (3 sources) Opioid Agonist Start: 09-14-2023 HYDROmorphone Refills(s) 0 Start Date: 09/14/23 Status: Ordered lidocaine 0.05 mg/mg medicated patch (20 sources) Antiarrhythmic, Amide Local Anesthetic Start: 03-09-2024 apply 1 dose transdermal route once daily as needed for pain lidocaine (Lidoderm) 5 % patch APPLY 1 PATCH TO SKIN ONCE A DAY NEEDED FOR PAIN 03/09/2024 Active loratadine 10 mg oral tablet (20 sources) End: 09-04-2024 take 1 tablet by mouth in the morning loratadine (Claritin) 10 MG tablet Take 10 mg by mouth in the morning. 09/04/2024 Discontinued metoprolol tartrate 25 mg oral tablet (1 source) beta-Adrenergic Shahid take 1 tablet by mouth once daily metoprolol tartrate (LOPRESSOR) 25 MG tablet Take 25 mg by mouth daily 0 Active modafinil 200 mg oral tablet (20 sources) Sympathomimetic- like Agent Start: 05-23-2024 End: 08-04-2025 take 1 tablet by mouth in the morning modafinil (Provigil) 200 MG tablet Indications: Obstructive sleep apnea Take 1 tablet (200 mg) by mouth in the morning. 30 tablet 07/05/2025 08/04/2025 Active Start: 11-19-2023 take 1 tablet by [facility] in the morning modafinil (Provigil) 200 MG [...] spine- Morphine, Baclofen, Clonidine combination 0 Active ondansetron 4 mg disintegrating oral tablet (2 sources) Serotonin-3 Receptor Antagonist Start: 12-06-2024 End: 12-13-2024 take 1 tablet by mouth every eight hours for nausea ondansetron ODT (Zofran-ODT) 4 MG disintegrating tablet Indications: Gastroenteritis Take 1 tablet (4 mg) by mouth every 8 (eight) hours if needed for nausea or vomiting for up to 7 days 21 tablet 12/06/2024 12/13/2024 Active OXcarbazepine 150 mg oral tablet (1 source) Anti-epileptic Agent take 1 tablet by mouth three times daily OXcarbazepine (TRILEPTAL) 150 MG tablet Take 150 mg by mouth three times daily 0 Active 24 hr oxybutynin chloride 15 mg extended release oral tablet (20 sources) Cholinergic Muscarinic Antagonist Start: 06-08-2025 take 1 tablet by mouth once daily oxybutynin XL (Ditropan-XL) 15 MG 24 hr tablet Take 15 mg by mouth Daily 06/08/2025 Active Start: 05-12-2025 take 1 tablet by liz once daily Oxybutynin Chloride 15 mg tablet extended release 24hr Active 15 MG PO daily May 12, 2025 12:00am Complies with drug therapy Start: 10-09-2024 End: 12-06-2024 take 1 tablet by mouth once daily oxybutynin XL (Ditropan-XL) 15 MG 24 hr tablet Indications: Urge incontinence of urine Take 1 tablet (15 mg) by mouth Daily Do not crush, chew, or split. 100 tablet 3 10/09/2024 12/06/2024 Discontinued (Therapy completed) Start: 09-12-2024 End: 09-12-2024 take 1 tablet by mouth once daily oxybutynin XL (Ditropan-XL) 15 MG 24 hr tablet Indications: Urge incontinence of urine Take 1 tablet (15 mg) by mouth Daily Do not crush, chew, or split. 100 tablet 3 09/12/2024 Active Start: 05-23-2024 End: 08-31-2024 take 1 tablet by mouth every twenty-four hours in the morning oxybutynin XL (Ditropan-XL) 15 MG 24 hr tablet Indications: Urge incontinence of urine Take 1 tablet (15 mg) by mouth in the morning. 100 tablet 05/23/2024 07/24/2024 Discontinued (Ineffective) Start: 09-14-2023 End: 06-08-2025 take 1 tablet by mouth once daily oxybutynin 5 mg ER Tab 5 mg = 1 tab(s), Oral, Daily, X 14 day(s), # 14 tab(s), Refills(s) 0, Pharmacy: [facility]/pharmacy #[id number], 178, cm, 09/14/23 9:54:00 EST, Height/Length Dosing, 94, kg, 09/14/23 9:54:00 EST, Weight Dosing Start Date: 09/14/23 Stop Date: 09/28/23 Status: Ordered Start: 09-08-2023 End: 08-11-2024 oxybutynin 10 mg ER Tab 30 E A, 0 Refill(s), TAKE 1 TABLET BY MOUTH EVERY DAY IN THE MORNING, Refills(s) 0 Start Date: 09/08/23 Status: Ordered Start: 05-17-2023 take 1 tablet by liz th every twenty-four hours in the morning oxybutynin XL (Ditropan-XL) 10 MG 24 hr tablet Indications: Urge incontinence of urine Take 1 tablet (10 mg) by mouth in the morning. 100 tablet 3 05/17/2023 Active pantoprazole 40 mg delayed release oral tablet (16 sources) Proton Pump Inhibitor Start: 05-07-2025 take 1 tablet by mouth in the morning pantoprazole (ProtoNix) 40 MG EC tablet Indications: Gastroesophageal reflux disease without esophagitis Take 1 tablet (40 mg) by mouth in the morning. Do not crush, chew, or split. 90 tablet 3 05/07/2025 Active phenazopyridine hydrochloride 200 mg oral tablet (1 source) Start: 05-01-2023 take 1 tablet by mouth every eight hours Pyridium 200 MG 1 tablet after meals Orally Three times a day for 2 day(s) Apr, Active potassium gluconate 2.5 meq extended release oral tablet (20 sources) Potassium Glucon ate ER 595 MG tablet controlled-release Take by mouth Daily Active predniSONE 20 mg oral tablet (1 source) Start: 05-12-2025 take 1 tablet by mouth twice daily Prednisone 20 mg tablet Active 20 MG PO Twice daily May 12, 2025 12:00am Complies with drug therapy pregabalin 200 mg oral capsule (20 sources) Start: 10-24-2020 End: 06-29-2025 take 1 capsule by mouth in the [...] (200 mg) before bedtime. 90 capsule 2 06/29/2025 Active take 1 capsule by mouth three [...] 06/07/2023 Active tiZANidine 4 mg oral tablet (20 sources) Central alpha-2 Adrenergic Agonist Start: 05-23-2024 End: 08-28-2024 take 1 tablet by mouth every eight hours for muscle spasms tiZANidine (Zanaflex) 4 MG tablet Indications: Tension headache Take 1 tablet (4 mg) by mouth every 8 (eight) hours if needed for muscle spasms 90 tablet 05/23/2024 08/28/2024 Discontinued (Side effects) Start: 11-04-2023 take 1 tablet by liz th three times daily as needed for muscle spasms tiZANidine (Zanaflex) 4 MG tablet Take 4 mg by mouth 3 (three) times a day as needed for muscle spasms 09/03/2024 Active Start: 09-25-2021 tiZANidine HCl - 4 [...] Active traMADol hydrochloride 50 mg oral tablet (20 sources) Opioid Agonist Start: 01-09-20 End: 08-09-20 take 1 tablet by mouth every six hours for pain traMADol (Ultram) 50 MG tablet Indications: Fibromyalgia Take 1 tablet (50 mg) by mouth every 6 (six) hours if needed for severe pain 120 tablet 07/10/2025 08/09/2025 Active Start: 09-08-2023 End: 11-19-2024 take 1 tablet by mouth every six hours as needed for pain traMADol (Ultram) 50 MG tablet Indications: Fibromyalgia TAKE 1 TABLET (50 MG) BY MOUTH EVERY 6 HOURS NEEDED FOR SEVERE PAIN 120 tablet 01/08/2025 Active take 1 tablet by liz th four times daily as needed traMADol HCl 50 MG TAKE 1 TABLET BY MOUTH FOUR TIMES A DAY NEEDED Oral for 30 Days Active traZODone hydrochloride 50 mg oral tablet (20 sources) Serotonin Reuptake Inhibitor Start: 04-09-2025 traZODone (Desyrel) 50 MG tablet Indications: Primary insomnia Take 1 tablet (50 mg) by mouth as needed at bedtime for sleep 30 tablet 04/09/2025 Active Start: 02-20-2025 End: 03-26-2025 take 1 tablet by mouth at bedtime traZODone (Desyrel) 150 MG tablet Indications: Primary insomnia Take 1 tablet (150 mg) by mouth at bedtime 30 tablet 3 03/26/2025 Active Start: 10-17-2020 End: 01-08-2025 take 1-2 tablets by mouth at bedtime traZODone (Desyrel) 50 MG tablet Indications: Primary insomnia Take 1-2 tablets (50-100 mg) by mouth at bedtime 180 tablet 3 01/08/2025 Active triamcinolone acetonide 0.001 mg/mg topical ointment (7 sources) Corticosteroid Start: 08-11-2024 End: 09-04-2024 triamcinolone (Kenalog) 0.1 % ointment Indications: Vulvar irritation Apply thin film BID until symptoms resolve then ween to once daily for several days and then every other day and stop 30 g 08/11/2024 09/04/2024 Discontinued (Ineffective) 24 hr trospium chloride 60 mg extended release oral capsule (7 sources) Cholinergic Muscarinic Antagonist Start: 08-11-2024 End: 08-11-2025 take 1 capsule by mouth once daily trospium (Sanctura XR) 60 MG 24 hour capsule Indications: Urinary urgency Take 1 capsule (60 mg) by mouth Daily 90 capsule 3 08/11/2024 09/04/2024 Discontinued venlafaxine 75 mg oral tablet (1 source) Serotonin and Norepinephrine Reuptake Inhibitor take 2 tablets by mouth once daily venlafaxine (EFFEXOR) 75 MG tablet Take 150 mg by mouth daily 0 Active Completed/Discontinued Medications Medication Drug Class(es) Dates Sig (Normalized) Sig (Original) baclofen 10 mg oral tablet (13 sources) gamma-Aminobutyri c Acid-ergic Agonist Start: 08-28-2024 End: 09-27-2024 take 1 tablet by mouth in the morning, then take 1 tablet by mouth in the evening, then take 1 tablet by mouth at bedtime baclofen (Lioresal) 10 MG tablet Indications: Systemic lupus erythematosus, unspecified SLE type, unspecified organ involvement status (CMS/HCC) Take 1 tablet (10 mg) by mouth in the morning and 1 tablet (10 mg) in the evening and 1 tablet (10 mg) before bedtime. 90 tablet 08/28/2024 09/12/2024 Discontinued Start: 09-14-2023 baclofen Oral, TID Start Date: 09/14/23 Status: Ordered take 1 tablet by ilz th four times daily baclofen (LIORESAL) 10 MG tablet Take 10 mg by mouth 4 times daily 0 Active cholecalciferol 0.01 mg oral tablet (1 source) Vitamin D End: 11-04-2023 cholecalciferol, vitamin D3, 400 units tablet Take 75 Units by mouth daily. 0 11/04/2023 Discontinued (Therapy completed) DULoxetine 30 mg delayed release oral capsule (20 sources) Serotonin and Norepinephrine Reuptake Inhibitor Start: 11-14-2024 End: 12-14-2024 take 1 capsule by mouth once daily DULoxetine (Cymbalta) [address] capsule Indications: Depression, unspecified depression type (CMS/HCC) , Fibromyalgia Take 1 capsule (30 mg) by mouth Daily Do not crush or chew. 30 capsule 11/14/2024 11/27/2024 Discontinued (Side effects) Start: 06-23-2023 End: 09-12-2024 take 2 capsules by mouth once daily DULoxetine (Cymbalta) [address] capsule Indications: Depressive disorder (CMS/HCC) TAKE 2 CAPSULES BY MOUTH EVERY DAY 200 capsule 3 07/10/2024 09/12/2024 Discontinued Start: 12-23-2020 duloxetine 60 mg oral delayed release capsule 60 EA, 0 Refill(s), TAKE 2 CAPSULES BY MOUTH EVERY DAY, Refills(s) 0 Start Date: 09/08/23 Status: Ordered famotidine 40 mg oral tablet (20 sources) Histamine-2 Receptor Antagonist Start: 09-21-2023 End: 09-12-2024 take 1 tablet by mouth in the morning famotidine (Pepcid) 40 MG tablet Indications: Gastroesophageal reflux disease without esophagitis Take 1 tablet (40 mg) by mouth in the morning. 30 tablet 5 09/21/2023 09/12/2024 Discontinued (Other) take 1 tablet by mouth in the mo rning famotidine (PEPCID) 20 mg tablet Take 1 tablet (20 mg total) by mouth in the morning. 0 Active gadoteridol (PROHANCE) injection 20 mL (1 source) Start: 01-24-2021 End: 01-24-2021 gadoteridol (PROHANCE) injection 20 mL omeprazole 40 mg delayed release oral capsule (20 sources) Proton Pump Inhibitor Start: 11-29-2023 End: 05-07-2025 take 1 capsule by mouth before mealtime omeprazole (PriLOSEC) [address] capsule Indications: Gastroesophageal reflux disease without esophagitis Take 1 capsule (40 mg) by mouth in the morning. Take before meals. Do not crush or chew. Take 30 minutes prior to breakfast meal.. 100 capsule 3 10/12/2024 05/07/2025 Discontinued Start: 06-21-2020 End: 11-04-2023 take 1 capsule by mouth once daily Omeprazole 40 MG Oral Capsule Delayed Release TAKE 1 CAPSULE Daily Quantity: 0 Refills: 0 Ordered: 27-Jan-2021 DO Start : 21-Jun-2020 Active phentermine hydrochloride 37.5 mg oral capsule (1 source) Sympathomimetic Amine Anorectic take 1 capsule by mouth once daily before breakfast Adipex-P 37.5 MG Oral Capsule TAKE 1 CAPSULE EVERY MORNING BEFORE BREAKFAST. Quantity: 0 Refills: 0 Ordered: 25-Sep-2021 DO Active sodium chloride 0.9 % parenteral solution with HYDROmorphone (PF) 10 mg/mL solution 2 mg/mL (1 source) End: 024 sodium chloride 0.9 % parenteral solution with HYDROmorphone (PF) 10 mg/mL solution 2 mg/mL by epidural route continuously. Hydromorphone (5.0mg/ml), baclofen (500.0mcg/ml), clonodine (100.0mcg/ml). [employer] pain pump, continuous. Hard copy info scanned into [email or web address] 11/04/2023 Discontinued (Therapy completed) Problems Active Problems Problem Classification Problem Date Documented Da te Episodic/Chronic Adjustment disorders (20 sources) Adjustment disorder with depressed mood; Translations: [Adjustment disorder with depressed mood] Onset: 3 09-14-2023 Chronic Anxiety disorders (20 sources) Generalized anxiety disorder; Translations: [Generalized anxiety disorder] Onset: 8 09-14-2023 Chronic Diabetes mellitus with complications (20 sources) Polyneuropathy due to type 2 diabetes mellitus; Translations: [Type 2 diabetes mellitus with diabetic polyneuropathy] Onset: 5 11-14-2024 Chronic Diabetes mellitus without complication (20 sources) Type 2 diabetes mellitus without complications; Translations: [Type 2 diabetes mellitus without complication] Onset: 4 05-23-2024 Chronic Disorders of lipid metabolism (20 sources) Hyperlipidemia; Translations: [Hyperlipidemia, unspecified] Onset: 3 09-14-2023 Chronic Esophageal disorders (20 sources) Gastro-esophageal reflux disease with esophagitis; Translations: [Gastroesophageal reflux disease] Onset: 3 09-14-2023 Chronic Genitourinary symptoms and ill-defined conditions (20 sources) Stress incontinence (female) (male); Translations: [Female stress incontinence] Onset: 3 Chronic Headache; including migraine (20 sources) Migraine, unspecified, not intractable, without status migrainosus; Translations: [Migraine] Onset: 3 Chronic Joint disorders and dislocations; trauma-related (20 sources) Bilateral derangement of knee; Translations: [Derangement of left knee] Onset: 3 09-14-2023 Chronic Menopausal disorders (20 sources) Atrophy of vagina; Translations: [Menopausal flushing] Onset: 3 09-14-2023 Chronic Menopausal disorders (2 sources) Drug therapy finding; Translations: [Hormone replacement therapy] 02-16-2025 Episodic Miscellaneous mental health disorders (20 sources) Primary insomnia; Translations: [Primary insomnia] Onset: 5 09-14-2023 Chronic Mood disorders (20 sources) Depressive disorder; Translations: [Depressive disorder] Onset: 0 03-09-2023 Chronic Noninfectious gastroenteritis (2 sources) Gastroenteritis; Translations: [Noninfective gastroenteritis and colitis, unspecified] 12-06-2024 Episodic Nonmalignant breast conditions (6 sources) Large breast; Translations: [Hypertrophy of breast] Onset: 5 01-02-2025 Episodic Nutritional deficiencies (1 source) Vitamin D deficiency; Translations: [Unspecified vitamin D deficiency] Chronic Osteoarthritis (20 sources) Unspecified osteoarthritis, unspecified site; Translations: [Idiopathic osteoarthritis] Onset: 1 09-14-2023 Chronic Other acquired deformities (20 sources) Postural kyphosis; Translations: [Postural kyphosis, thoracic region] Onset: 6 09-14-2023 Chronic Other acquired deformities (20 sources) Scoliosis deformity of spine; Translations: [Scoliosis, unspecified] Onset: 3 09-14-2023 Chronic Other aftercare (1 source) 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; Translations: [OTH 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 CURRENT DRUG THERAPY] Onset: Episodic Other connective tissue disease (20 sources) History of total hip arthroplasty; Translations: [Presence of unspecified artificial hip joint] Onset: 3 09-14-2023 Chronic Other connective tissue disease (4 sources) History of right total knee replacement; Translations: [Presence of right artificial knee joint] 09-11-2024 Chronic Other connective tissue disease (2 sources) History of total knee arthroplasty; Translations: [Presence of right artificial knee joint] 05-28-2025 Chronic Other connective tissue disease (20 sources) Fibromyalgia; Translations: [Myalgia and myositis, unspecified] Onset: 3 09-08-2023 Episodic Other connective tissue disease (2 sources) H/O: musculoskeletal disease; Translations: [Personal history of other musculoskeletal disorders] Episodic Other connective tissue disease (1 source) Fibromyalgia; Translations: [FIBROMYALGIA] Onset: 3 Episodic Other female genital disorders (4 sources) Vulval irritation; Translations: [Other specified noninflammatory disorders of vulva and perineum] 08-11-2024 Episodic Other gastrointestinal disorders (1 source) History of gastroesophageal reflux disease; Translations: [Personal history of other diseases of digestive system] Episodic Other lower respiratory disease (1 source) H/O: respiratory disease; Translations: [Personal history of other diseases of respiratory system] Episodic Other nervous system disorders (3 sources) Carpal tunnel syndrome 09-14-2023 Chronic Other nervous system disorders (20 sources) Chronic pain syndrome; Translations: [Chronic pain syndrome] Onset: 3 09-14-2023 Chronic Other nervous system disorders (20 sources) Peripheral nerve disease ; Translations: [Polyneuropathy, unspecified] Onset: 3 09-14-2023 Chronic Other nervous system disorders (20 sources) Bilateral carpal tunnel syndrome; Translations: [Carpal tunnel syndrome, bilateral upper limbs] Onset: 3 03-09-2023 Chronic Other nervous system disorders (20 sources) Difficulty walking; Translations: [Difficulty in walking, not elsewhere classified] Onset: 3 03-09-2023 Chronic Other nervous system disorders (20 sources) Disorder of muscle; Translations: [Myopathy, unspecified] Onset: 5 10-19-2024 Chronic Other non-traumatic joint disorders (6 sources) Arthritis of knee 09-14-2023 Chronic Other non-traumatic joint disorders (3 sources) Multiple joint pain; Translations: [Pain in unspecified joint] 06-26-2024 Episodic Other non-traumatic joint disorders (1 source) Pain in unspecified joint; Translations: [Pain in unspecified joint] Onset: 4 Episodic Other nutritional; endocrine; and metabolic disorders (1 source) Obesity; Translations: [Obesity, unspecified] Chronic Other nutritional; endocrine; and metabolic disorders (3 sources) Disorder of carbohydrate metabolism 09-14-2023 Chronic Other nutritional; endocrine; and metabolic disorders (20 sources) Obese class I; Translations: [Obesity, unspecified] Onset: 3 Resolved: 4 09-14-2023 Chronic Other upper respiratory disease (20 sources) Allergic rhinitis; Translations: [Allergic rhinitis, unspecified] Onset: 3 09-14-2023 Chronic Residual codes; unclassified (20 sources) Hypersomnia; Translations: [Hypersomnia, unspecified] Onset: 3 09-14-2023 Chronic Residual codes; unclassified (20 sources) Obstructive sleep apnea syndrome; Translations: [Obstructive sleep apnea (adult) (pediatric)] Onset: 3 09-14-2023 Chronic Residual codes; unclassified (20 sources) Postprocedural state finding; Translations: [Presence of other specified functional implants] Onset: 6 05-26-2023 Chronic Residual codes; unclassified (20 sources) Not easily wakened from sleep; Translations: [Other sleep disorders] Onset: 4 11-16-2023 Chronic Residual codes; unclassified (1 source) Presence of other specified devices; Translations: [PRESENCE OF OTHER SPECIFIED DEVICES] Onset: 3 Episodic Spondylosis; intervertebral disc disorders; other back problems (20 sources) Lumbar post-laminectomy syndrome; Translations: [Postlaminectomy syndrome, not elsewhere classified] Onset: 2 Chronic Systemic lupus erythematosus and connective tissue disorders (20 sources) Systemic lupus erythematosus; Translations: [Systemic lupus erythematosus, unspecified] Onset: 3 09-14-2023 Chronic Thyroid disorders (20 sources) Thyroid nodule; Translations: [Nontoxic single thyroid [...] right knee degenerative joint disease Onset: 4 Unclassified (20 sources) Patient on antidepressant monitoring plan Onset: 5 11-14-2024 Unclassified (20 sources) Baseline PHQ-9 Onset: 5 11-14-2024 Unclassified (2 sources) Breast Reduction; Translations: [Breast Reduction] Onset: 5 Unclassified (2 sources) Consult; Translations: [Consult] Onset: 5 Unclassified (2 sources) New Patient; Translations: [New Patient] Onset: 5 Past or Other Problems Problem Classification Problem Date Documented Da te Episodic/Chronic Bacterial infection; unspecified site (20 sources) Mycoplasma infection; Translations: [Mycoplasma infection, unspecified site] Onset: 3 Resolved: 3 09-14-2023 Episodic Deficiency and other anemia (20 sources) Anemia; Translations: [Anemia, unspecified] Onset: 3 09-14-2023 Episodic Diabetes mellitus without complication (20 sources) Impaired glucose tolerance; Translations: [Impaired glucose tolerance (oral)] Onset: 3 03-09-2023 Episodic Diabetes or abnormal glucose tolerance complicating ; childbirth; or the puerperium (20 sources) History of gestational diabetes mellitus; Translations: [Personal history of gestational diabetes] Onset: 6 09-14-2023 Episodic Diseases of mouth; excluding dental (20 sources) Mucocele of mouth; Translations: [Other lesions of oral mucosa] Onset: 3 09-14-2023 Episodic Genitourinary symptoms and ill-defined conditions (20 sources) Dysuria; Translations: [Hematuria, unspecified] Onset: 3 Episodic Headache; including migraine (2 sources) Headache; including migraine; Translations: [HEADACHE UNSPECIFIED] Onset: 3 Immunizations and screening for infectious disease (20 sources) Anti-nuclear factor positive; Translations: [Other specified abnormal immunological findings in serum] Onset: 4 06-26-2024 Episodic Other acquired deformities (20 sources) Lumbar spondylolisthesis; Translations: [Spondylolisthesis, lumbar region] Onset: 6 09-14-2023 Episodic Other connective tissue disease (20 sources) Weakness of hand; Translations: [Other symptoms and signs involving the musculoskeletal system] Onset: 3 09-14-2023 Episodic Other connective tissue disease (20 sources) History of lumbar fusion; Translations: [Arthrodesis status] Onset: 6 05-26-2023 Episodic Other connective tissue disease (20 sources) Muscle weakness; Translations: [Muscle weakness (generalized)] Onset: 6 05-26-2023 Episodic Other connective tissue disease (20 sources) Muscle pain; Translations: [Myalgia, unspecified site] Onset: 5 10-19-2024 Episodic Other gastrointestinal disorders (20 sources) Constipation; Translations: [Constipation, unspecified] Onset: 3 09-14-2023 Episodic Other gastrointestinal disorders (20 sources) Slow transit constipation; Translations: [Slow transit constipation] Onset: 3 03-09-2023 Episodic Other infections; including parasitic (20 sources) Lyme disease; Translations: [Lyme disease, unspecified] Onset: 3 09-14-2023 Episodic Other nervous system disorders (20 sources) Incoordination; Translations: [Unspecified lack of coordination] Onset: 3 09-14-2023 Episodic Other nervous system disorders (20 sources) Paresthesia of lower extremity; Translations: [Anesthesia of skin] Onset: 3 09-14-2023 Episodic Other nervous system disorders (20 sources) Tremor; Translations: [Tremor, unspecified] Onset: 3 09-14-2023 Episodic Other nervous system disorders (20 sources) Impaired cognition; Translations: [Other symptoms and signs involving cognitive functions and awareness] Onset: 3 03-09-2023 Episodic Other nervous system disorders (20 sources) Skin sensation disturbance; Translations: [Unspecified disturbances of skin sensation] Onset: 6 05-26-2023 Episodic Other non-traumatic joint disorders (20 sources) Pain in right knee; Translations: [Pain in joint, lower leg] Onset: 4 12-20-2023 Episodic Other non-traumatic joint disorders (20 sources) Swollen ankle region; Translations: [Effusion, left ankle] Onset: 4 05-23-2024 Episodic Other nutritional; endocrine; and metabolic disorders (20 sources) Body mass index 30+ - obesity; Translations: [Body mass index (BMI) 31.0-31.9, adult] Onset: 3 Resolved: 4 05-26-2023 Chronic Other nutritional; endocrine; and metabolic disorders (20 sources) Body mass index 25-29 - overweight; Translations: [Overweight] Onset: 4 11-16-2023 Episodic Other screening for suspected conditions (not mental disorders or infectious disease) (20 sources) Electrocardiogram abnormal; Translations: [Nonspecific abnormal electrocardiogram [ECG] [EKG]] Onset: 3 03-09-2023 Episodic Other skin disorders (20 sources) Excessive sweating; Translations: [Generalized hyperhidrosis] Onset: 3 09-14-2023 Episodic Other skin disorders (20 sources) Eruption; Translations: [Rash and other nonspecific skin eruption] Onset: 3 03-09-2023 Episodic Other upper respiratory infections (20 sources) Acute sinusitis; Translations: [Acute sinusitis] Onset: 3 Resolved: Episodic Residual codes; unclassified (20 sources) Amnesia; Translations: [Other amnesia] Onset: 3 09-14-2023 Episodic Residual codes; unclassified (20 sources) Disturbance in sleep behavior; Translations: [Sleep disorder, unspecified] Onset: 3 Resolved: 5 09-14-2023 Episodic Residual codes; unclassified (20 sources) History of lumbar laminectomy; Translations: [Other specified postprocedural states] Onset: 6 05-26-2023 Episodic Residual codes; unclassified (20 sources) Bilateral lower limb edema; Translations: [Localized edema] Onset: 3 09-07-2023 Episodic Residual codes; unclassified (20 sources) Edema; Translations: [Edema, unspecified] Onset: 4 05-23-2024 Episodic Residual codes; unclassified (20 sources) Flushing; Translations: [Flushing] Onset: 4 Resolved: 4 07-24-2024 Episodic Screening and history of mental health and substance abuse codes (20 sources) Ex-smoker; Translations: [Personal history of tobacco use] Onset: 0 Episodic Comment on above: Quit in 2014.; Spondylosis; intervertebral disc disorders; other back problems (20 sources) Pain in thoracic spine; Translations: [Spinal stenosis of lumbar region] Onset: 2 Episodic Urinary tract infections (20 sources) Urinary tract infectious disease; Translations: [UTI (urinary tract infection)] Onset: 4 Episodic Results Test Name Value Interpretation Reference Range Facility XR Knee - right 1 or 2 Views on 05-28-2025 Imaging Result: 05/28/2025: Standing AP and LAT [...] dislocation. Impression: Stable RT total knee replacement. 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 [facility] [place] [facility] [employer] Radiology Study observation (narrative) [facility] Laboratory - Hematology and Cell countson 05-07-2025 HbA1c (Bld) [Mass fraction] 5.7 % [facility] [place] No Panel Informationon 05-07 Interpretation and review of laboratory results Normal [facility] [employer] MM TOMOSYNTHESIS SCREENING B Ion 04-30-[address] [address] Mammography Report Signed Patient: MARANDA DAVIS MR#: [id number] : 1970 Acct:[id number] Age/Sex: 55 / F ADM Date: 04/30/25 Loc: MAMMO Attending Dr: CODY URIAS Ordering Physician: CODY URIAS Results: Date of Service: 04/30/25 Follow Up: Procedure(s): MM tomosynthesis screening BI Accession Number(s): [id number] cc: GRAZYNA WORLEY ; CODY URIAS Patient Name: MARANDA DAVIS MR#: [id number] : 1970 Exam Date: 04/30/2025 Ordering Doctor: DR CODY URIAS RADIOLOGY REPORT PROCEDURE: MM TOMOSYNTHESIS SCREENING [...] colon cancer at age 69. LOCATION: The [facility] BREAST COMPOSITION: The breasts are heterogeneously [...] 12:41 Dictated By: Douglas Bartlett M.D. Signed By: 04/30/25 1242 DD/ 1241 TD/TT: Mud Cleaner Operator: [facility] Radiology, Diliaogkassandra steele MD - 04/30/2025 [place] [address] Mammography Report Signed Patient: MARANDA DAVIS MR#: [id number] : 1970 Acct:[id number] Age/Sex: 55 / F ADM Date: 04/30/25 Loc: MAMMO Attending Dr: CODY URIAS Ordering Physician: CODY URIAS Results: Date of Service: 04/30/25 Follow Up: Procedure(s): MM tomosynthesis screening BI Accession Number(s): [id number] cc: GRAZYNA WORLEY ; CODY URIAS Patient Name: MARANDA DAVIS MR#: [id number] : 1970 Exam Date: 04/30/2025 Ordering Doctor: DR CODY URIAS RADIOLOGY REPORT PROCEDURE: MM TOMOSYNTHESIS SCREENING [...] colon cancer at age 69. LOCATION: The [facility] BREAST COMPOSITION: The breasts are heterogeneously [...] 12:41 Dictated By: Douglas Bartlett M.D. Signed By: 04/30/25 1242 DD/ 1241 TD/TT: Mud Cleaner Operator: [facility] Radiology Study observation (narrative) [facility] MM TOMOSYNTHESIS SCREENING B IOrdered By: Radiologist Radiology on 04-30-2025 [employer] Work Phone: XR Knee - left [address] Viewson [address] [address] XRay Report Signed Patient: MARANDA DAVIS MR#: [id number] : 1970 Acct:[id number] Age/Sex: 55 / F ADM Date: 04/05/25 Loc: RAD Attending Dr: Kvng Katz M.D. Ordering Physician: Kvng Katz M.D. Date of Service: 04/05/25 Procedure(s): XR knee LT 4V Accession Number(s): [id number] cc: GRAZYNA WORLEY ; Kvng Katz M.D. The [address] [address] Patient Name: MARANDA DAVIS MRN: [facility]:[id number] date: 1970 Sex: F Assigned Patient Location: [facility] Current Patient Location: [facility] Accession/Order Number: [id number] Exam Date: 04/05/2025 14:35 Report Date: 04/05/2025 14:35 At the request of: KVNG KATZ MD Procedure: XR knee LT 4V LEFT KNEE - 4 views CLINICAL HISTORY: Osteoarthritis Left Knee COMPARISON: None FINDINGS: Moderate degenerative changes of the left knee with patellofemoral joint space narrowing. No acute bony process. Small joint effusion. XR/XR knee LT 4V IMPRESSION: MODERATE DEGENERATIVE CHANGES OF THE LEFT KNEE WITHOUT ACUTE BONY PROCESS. Impression dictated by: Moises Jenkins Jr., D.O. 04/05/2025 2:35 PM Dictation Location: [place] [address] Electronically authenticated by: [id number] Y Date: 04/05/2025 14:35 Dictated By: Moises Jenkins M.D. Signed By: 04/05/25 1438 DD/ 34 TD/TT: Mud Cleaner Operator: Luisa Menard MD - 04/05/[address] [address] XRay Report Signed Patient: MARANDA DAVIS MR#: [id number] : 1970 Acct:[id number] Age/Sex: 55 / F ADM Date: 04/05/25 Loc: [facility] Attending Dr: Kvng Katz M.D. Ordering Physician: Kvng Katz M.D. Date of Service: 04/05/25 Procedure(s): XR knee LT 4V Accession Number(s): [id number] cc: GRAZYNA WORLEY ; Kvng Katz M.D. [place] [address] Patient Name: MARANDA DAVIS MRN: [id number] date: 1970 Sex: F Assigned Patient Location: [facility] Current Patient Location: [facility] Accession/Order Number: [id number] Exam Date: 04/05/2025 14:35 Report Date: 04/05/2025 14:35 At the request of: KVNG KATZ MD Procedure: XR knee LT 4V LEFT KNEE - 4 views CLINICAL HISTORY: Osteoarthritis Left Knee COMPARISON: None FINDINGS: Moderate degenerative changes of the left knee with patellofemoral joint space narrowing. No acute bony process. Small joint effusion. XR/XR knee LT 4V IMPRESSION: MODERATE DEGENERATIVE CHANGES OF THE LEFT KNEE WITHOUT ACUTE BONY PROCESS. Impression dictated by: Moises Jenkins Jr. DPatriciaOPatricia 04/05/2025 2:35 PM Dictation Location: [place] [address] Electronically authenticated by: [id number] Y Date: 04/05/2025 14:35 Dictated By: Moises Jenkins M.D. Signed By: 04/05/25 1438 DD/ 34 TD/TT: Mud Cleaner Operator: [facility] [place] Radiology Study observation (narrative) [facility] XR Knee - left 4 ViewsOrdere d By: Radiologist Radiology on 04-05-2025 [facility] [employer] Work Phone: XR Knee - right 1 or 2 Views on 11-22-2024 Imaging Result: AP and lateral of right knee showed surgical position and alignment of prosthetic components without evidence of loosening or wear to the femoral, tibial, or patellar components. The alignment appeared to be anatomic. There was no evidence of accelerated or asymmetric wear to the patellar button or tibial tray. There was no evidence of fracture and/or dislocation. Impression: Unremarkable right total knee arthroplasty. [facility] [place] XR Knee - right 1 or 2 Views Ordered By: Jr. Cintron on 11-22-2024 [employer] Work Phone: XR Knee - right 1 or 2 Views on 11-20-2024 Radiology Study observation (narrative) [facility] [place] XR Knee - right 1 or 2 Views on 09-12-2024 Imaging Result: Xrays AP and LAT of the right knee performed on September 11, 2024 demonstrates AP and lateral of right knee showed surgical position and alignment of prosthetic components without evidence of loosening or wear to the femoral, tibial, or patellar components. The alignment appeared to be anatomic. There was no evidence of accelerated or asymmetric wear to the patellar button or tibial tray. There was no evidence of fracture and/or dislocation. Impression: Unremarkable right total knee arthroplasty. [facility] [place] XR Knee - right 1 or 2 Views Ordered By: Jr. Cintron on 09-12-2024 [employer] Work Phone: XR Knee - right 1 or 2 Views on 09-11-2024 Radiology Study observation (narrative) [facility] [place] Urinalysis macro (dipstick) panel (U)on 08-11-2024 Bilirubin, UA Negative Negative - 4(70) +++ mg/dL [facility] Blood, UA Negative Negative - 50 Fercho/mcL [facility] Clarity, UA Clear [facility] [employer] Color, UA Yellow [facility] [employer] Glucose, UA Negative Negative - 1999(110) ++++ mg/dL [facility] Interpretation and review of laboratory results Normal [facility] [employer] Ketones, UA Negative Negative - 160(16) ++++ mg/dL [facility] Leukocytes, UA Negative Negative - 500+++ Reji/mcL [facility] Nitrite, UA Negative Negative - Positive [facility] pH, UA 8 5 - 9 [facility] [employer] Protein, UA Negative Negative - 1999(20) ++++ mg/dL [facility] Spec Grav, UA 1.005 1 - 1.03 [facility] Urobilinogen, UA 1.0 0.2 - 12 mg/dL [facility] MICROALB CREAT RATIO RAN DOMon 08-01-2024 CREATININE URINE RANDOM 104.81 mg/dL 20.00 - 300.00 mg/dL [facility] MICROALBUMIN URINE RANDOM <1.3 NINF - 30.0 mg/dL [facility] [facility] Laboratory - Hematology and Cell countson 07-24-2024 HbA1c (Bld) [Mass fraction] 5.6 % [facility] No Panel Informationon 07-24 Interpretation and review of laboratory results Normal Merged with [facility] re [facility] [employer] [facility] AUTOIMMUNE MULTIPLEX PANELon 06-26-2024 Centromere protein B Ab Ql (S) Negative Negative [facility] Centromere protein B Ab Qn (S) [facility] Chromatin Ab Ql Negative Negative [facility] DNA double strand Ab Qn (S) Negative Negative [facility] DNA double strand Ab Qn (S) 1 [IU]/mL See Below [facility] Interpretation and review of laboratory results Abnormal [facility] Skylar-1 extractable nuclear Ab IA Qn (Body fld) Negative Negative [facility] Skylar-1 extractable nuclear Ab IA Qn (S) NINF [facility] Nuclear Ab IA Ql (S) Positive Abnormal Negative [facility] Ribonucleoprotein extractable nuclear 63kD Ab Ql Negative Negative [facility] Ribonucleoprotein extractable nuclear Ab IA Qn (S) [facility] Ribosomal P Ab IA Qn (S) [facility] Ribosomal P Ab Ql (S) Negative Negative [facility] SCL-70 extractable nuclear Ab IA Ql (S) Positive Abnormal Negative [facility] SCL-70 extractable nuclear Ab IA Qn (S) 1.3 High [facility] Sjogrens syndrome-A extractable nuclear Ab IA Ql (S) Negative Negative [facility] Sjogrens syndrome-A extractable nuclear Ab IA Qn (S) [facility] Sjogrens syndrome-B extractable nuclear Ab IA Ql (S) Negative Negative [facility] Sjogrens syndrome-B extractable nuclear Ab IA Qn (S) [facility] Pulido extractable nuclear Ab IA Qn (S) [facility] Pulido extractable nuclear Ab Ql (S) Negative Negative [facility] Pulido extractable nuclear Ab+Ribonucleoprotei n extractable nuclear Ab IA Ql (S) Negative Negative [facility] Pulido extractable nuclear Ab+Ribonucleoprotei n extractable nuclear IgG IA Qn (S) NINF [facility] ds DNA Reference Range: < or = to 4 IU/mL-Negative 5-9 IU/mL-Indeterminate > or = to 10 IU/mL-Positive [facility] SASCHA SCREEN Positive Abnormal Negative [facility] Comment on above: Order Comment: ds DNA Reference Range: < or = to 4 IU/mL-Negative 5-9 IU/mL-Indeterminate > or = to 10 IU/mL-Positive Performed By: #### C CP, sascha #### [facility] [address] [place] [address], CENTROMERE ANTIBODY Negative Normal Negative The [facility] Comment on above: Order Comment: ds DNA Reference Range: < or = to 4 IU/mL-Negative 5-9 IU/mL-Indeterminate > or = to 10 IU/mL-Positive Performed By: #### C CP, sascha #### [facility] [address] [place] [address], CENTROMERE ANTIBODY INDEX < 0.2 Normal <1.0 The [facility] Comment on above: Order Comment: ds DNA Reference Range: < or = to 4 IU/mL-Negative 5-9 IU/mL-Indeterminate > or = to 10 IU/mL-Positive Performed By: #### C CP, sascha #### [facility] [address] [place] [address], CHROMATIN ANTIBODY Negative Normal Negative [facility] Comment on above: Order Comment: ds DNA Reference Range: < or = to 4 IU/mL-Negative 5-9 IU/mL-Indeterminate > or = to 10 IU/mL-Positive Performed By: #### C CP, sascha #### [facility] [address] [place] [address], CHROMATIN ANTIBODY INDEX < 0.2 Normal <1.0 [facility] Comment on above: Order Comment: ds DNA Reference Range: < or = to 4 IU/mL-Negative 5-9 IU/mL-Indeterminate > or = to 10 IU/mL-Positive Performed By: #### C CP, sascha #### [facility] [address], [place], DS DNA Negative Normal Negative [facility] Comment on above: Order Comment: ds DNA Reference Range: < or = to 4 IU/mL-Negative 5-9 IU/mL-Indeterminate > or = to 10 IU/mL-Positive Performed By: #### C CP, sascha #### [facility] [address], [place], DS DNA ANTIBODY 1 Normal See Below The [facility] Comment on above: Order Comment: ds DNA Reference Range: < or = to 4 IU/mL-Negative 5-9 IU/mL-Indeterminate > or = to 10 IU/mL-Positive Performed By: #### C CP, sascha #### [facility] [address] [place] [address], JO1 ANTIBODY Negative Normal Negative The [facility] Comment on above: Order Comment: ds DNA Reference Range: < or = to 4 IU/mL-Negative 5-9 IU/mL-Indeterminate > or = to 10 IU/mL-Positive Performed By: #### C CP, sascha #### [facility] [address] [place] [address], JO1 ANTIBODY INDEX < 0.2 Normal <1.0 [facility] Comment on above: Order Comment: ds DNA Reference Range: < or = to 4 IU/mL-Negative 5-9 IU/mL-Indeterminate > or = to 10 IU/mL-Positive Performed By: #### C CP, sascha #### [facility] [address] [place] [address], RIBOSOMAL P ANTIBODY Negative Normal Negative [facility] Comment on above: Order Comment: ds DNA Reference Range: < or = to 4 IU/mL-Negative 5-9 IU/mL-Indeterminate > or = to 10 IU/mL-Positive Performed By: #### C CP, sascha #### [facility] [address] [place] [address], RIBOSOMAL P ANTIBODY INDEX < 0.2 Normal <1.0 [facility] Comment on above: Order Comment: ds DNA Reference Range: < or = to 4 IU/mL-Negative 5-9 IU/mL-Indeterminate > or = to 10 IU/mL-Positive Performed By: #### C CP, sascha #### [facility] [address], [place], TELLER VAULT ANTIBODY Negative Normal Negative The [facility] Comment on above: Order Comment: ds DNA Reference Range: < or = to 4 IU/mL-Negative 5-9 IU/mL-Indeterminate > or = to 10 IU/mL-Positive Performed By: #### C CP, sascha #### [facility] [address], [place], TELLER VAULT ANTIBODY INDEX < 0.2 Normal <1.0 [facility] Comment on above: Order Comment: ds DNA Reference Range: < or = to 4 IU/mL-Negative 5-9 IU/mL-Indeterminate > or = to 10 IU/mL-Positive Performed By: #### C CP, sascha #### [facility] [address] [place] [address], SCLERODERMA-70 ANTIBODY Positive Abnormal Negative [facility] Comment on above: Order Comment: ds DNA Reference Range: < or = to 4 IU/mL-Negative 5-9 IU/mL-Indeterminate > or = to 10 IU/mL-Positive Performed By: #### C CP, sascha #### [facility] [address] [place] [address], SCLERODERMA-70 ANTIBODY INDEX 1.3 Al High <1.0 [facility] Comment on above: Order Comment: ds DNA Reference Range: < or = to 4 IU/mL-Negative 5-9 IU/mL-Indeterminate > or = to 10 IU/mL-Positive Performed By: #### C CP, sascha #### [facility] [address], [place], PULIDO ANTIBODY Negative Normal Negative The [facility] Comment on above: Order Comment: ds DNA Reference Range: < or = to 4 IU/mL-Negative 5-9 IU/mL-Indeterminate > or = to 10 IU/mL-Positive Performed By: #### C CP, sascha #### [facility] [address] [place] [address], PULIDO ANTIBODY INDEX < 0.2 Normal <1.0 [facility] Comment on above: Order Comment: ds DNA Reference Range: < or = to 4 IU/mL-Negative 5-9 IU/mL-Indeterminate > or = to 10 IU/mL-Positive Performed By: #### C CP, sascha #### [facility] [address] [place] [address], PULIDO/TELLER VAULT ANTIBODY Negative Normal Negative [facility] Comment on above: Order Comment: ds DNA Reference Range: < or = to 4 IU/mL-Negative 5-9 IU/mL-Indeterminate > or = to 10 IU/mL-Positive Performed By: #### C CP, sascha #### [facility] [address] [place] [address], PULIDO/TELLER VAULT ANTIBODY INDEX < 0.2 Normal <1.0 [facility] Comment on above: Order Comment: ds DNA Reference Range: < or = to 4 IU/mL-Negative 5-9 IU/mL-Indeterminate > or = to 10 IU/mL-Positive Performed By: #### C CP, sascha #### [facility] [address] [place] [address], SS-A ANTIBODY Negative Normal Negative The [facility] Comment on above: Order Comment: ds DNA Reference Range: < or = to 4 IU/mL-Negative 5-9 IU/mL-Indeterminate > or = to 10 IU/mL-Positive Performed By: #### C CP, sascha #### [facility] [address] [place] [address], SS-A ANTIBODY INDEX < 0.2 Normal <1.0 The [facility] Comment on above: Order Comment: ds DNA Reference Range: < or = to 4 IU/mL-Negative 5-9 IU/mL-Indeterminate > or = to 10 IU/mL-Positive Performed By: #### C CP, sascha #### [facility] [address] [place] [address], SS-B ANTIBODY Negative Normal Negative [facility] Comment on above: Order Comment: ds DNA Reference Range: < or = to 4 IU/mL-Negative 5-9 IU/mL-Indeterminate > or = to 10 IU/mL-Positive Performed By: #### C CP, sascha #### [facility] [address] [place] [address], SS-B ANTIBODY INDEX < 0.2 Normal <1.0 [facility] Comment on above: Order Comment: ds DNA Reference Range: < or = to 4 IU/mL-Negative 5-9 IU/mL-Indeterminate > or = to 10 IU/mL-Positive Performed By: #### C CP, sascha #### [facility] [address] [place] [address], C-REACTIVE PROTEINon 024 CRP 0.8 mg/dL High <0.5 [facility] Comment on above: Performed By: #### C RP, RA #### [facility] [address] [place] [address], CYCLIC CITRULLINATED PEPTIDE ,*on 06-26-2024 Cyclic citrullinated peptide IgG Qn U/mL [facility] - 3.0 U/mL [facility] Interpretation and review of laboratory results Normal [facility] Reference Range: Negative: < 3.0 U/mL Positive: > or = 3.0 U/mL [facility] CYCLIC CITRULL. PEPTIDE AB, IGG < 0.5 Normal <3.[address] [facility] Comment on above: Order Comment: Refer ence Range: Negative: < 3.0 U/mL Positive: > or = 3.0 U/mL Performed By: #### C CP, sascha #### [facility] [address] [place] [address], ERYTHROCYTE SEDIMENTATION RA Karina 06-26-2024 ESR (Bld) [Velocity] 18 mm/h Normal <=[address] [facility] Comment on above: Performed By: #### E SR #### [facility] [address] [place] [address], Laboratory - Chemistry and C hemistry - challengeon 06-26-2024 CRP [Mass/Vol] 0.8 mg/dL High [facility] - 0.5 mg/dL [facility] Laboratory - Hematology and Cell countson 06-26-2024 ESR (Bld) [Velocity] 18 mm/h [facility] Laboratory - Serology - non- microon 06-26-2024 Rheumatoid factor Qn [facility] No Panel Informationon 06-26 Interpretation and review of laboratory results Normal [facility] Interpretation and review of laboratory results Abnormal [facility] Interpretation and review of laboratory results Normal [facility] Patient Instructionson 06-26 [employer] Authentication Interface Message Text Blood work and Xray today Overall we have low suspicion of autoimmune conditions but given you are having morning stiffness and pain, we will get blood work checked Normal [facility] Progress Noteson 06-26-2024 [employer] Authentication Interface Message Text Maranda Sousa Gosia 06/26/2024 Diagnoses: 1. Fibromyalgia. 2. Polyarthralgia. Today [...] swelling. 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 Wrists and elbows are [...] medication. 4. She may return for follow-up prajan. Nikhil Grewal MD Normal [facility] [employer] Authentication Interface Message Text Rheumatology New Visit Note Referring Physician: Referring Provider: Grazyna Worley MD Reason for referral: New patient, establish relationship History of present illness: Maranda Davis is a 54 year old female who presents to [facility] rheumatology clinic for evaluation of positive SASCHA 1:80 nuclear pattern and joint pain PCP Dr. Worley, got her care from [facility], 1 hour from here. 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 Lives with and son. Has [...] EtOH: No Occupation: Used to worked in [place] at [employer], retired now Social History Socioeconomic History Marital [...] min Stress: No Stress Concern Present (06/24/2024) [employer] [employer] - Occupational Stress Questionnaire Feeling of Stress : Not at all Social Connections: Socially Integrated (06/24/2024) Social Connection and Isolation Panel [NHANES] Frequency of Communication with Friends and Family: More than three times a week Frequency of Social Gatherings with Friends and Family: Three times a week Attends Christian Services: More than 4 times per year [...] arthritis (more content not included)... Normal [facility] [employer] Authentication Interface Message Text Patient was identified by name and date of . Violet Duke Patient at risk for falls:No Falls Risk protocol implemented: No Normal [facility] RHEUMATOID FACTORon 06-26-20 RHEUMATOID FACTOR < 10 Normal <14 [facility] Comment on above: Performed By: #### C RP, RA #### [facility] [address] [place] [address], [phone] XR ARTHRITIS SURVEY HAND/WRI STon 06-26-2024 XR ARTHRITIS SURVEY HAND/WRIST EXAMINATION: XR ARTHRITIS SURVEY HAND/WRIST 06/26/2024 11:40 AM CLINICAL HISTORY: arthritis ASSOCIATED DIAGNOSIS: Polyarthralgia ORDERING PROVIDER: NIKHIL CARRILLO NOTE: COMPARISON: None FINDINGS: IMPRESSION: No acute fracture or malalignment. No osseous erosion. No significant degenerative change. No radiopaque foreign body. MACRO: None Normal [facility] XR Hand Arthritison 06-26-20 EXAMINATION: XR ARTHRITIS SURVEY HAND/WRIST 06/26/2024 11:40 AM CLINICAL HISTORY: arthritis ASSOCIATED DIAGNOSIS: Polyarthralgia ORDERING PROVIDER: NIKHIL GREWAL TECHNVIRGEN NOTE: COMPARISON: None FINDINGS: IMPRESSION: No acute fracture or malalignment. No osseous erosion. No significant degenerative change. No radiopaque foreign body. MACRO: None Dajuan Estrella M D - 06/26/2024 EXAMINATION: XR ARTHRITIS SURVEY HAND/WRIST 06/26/2024 11:40 AM CLINICAL HISTORY: arthritis ASSOCIATED DIAGNOSIS: Polyarthralgia ORDERING PROVIDER: NIKHIL GREWAL TECHNOLOGISTS NOTE: COMPARISON: None FINDINGS: IMPRESSION: No acute fracture or malalignment. No osseous erosion. No significant degenerative change. No radiopaque foreign body. MACRO: None [facility] Radiology Study observation (narrative) [facility] XR Hand ArthritisOrdered By: Dajuan Murray on 06-26-2024 [employer] Work Phone: XR KNEE RT 1 OR [...] Quentin Moise on 12/01/2023 10:15 AM Normal [facility] ECG 12 leadon 11-05-2023 TRACEMASTERVUE [facility] BASIC METABOLIC PANLon 11-04 Anion gap [Moles/Vol] 4 mmol/L Low 5-15 [facility] Comment on above: Performed By: #### C BCA, BMP #### [facility] ([id number]) [address], [address] [place] [address] Calcium [Mass/Vol] 9.3 mg/dL Normal 8.5-10.5 [facility] Comment on above: Performed By: #### C BCA, BMP #### [facility] ([id number]) [address], [address] [place] [address] Chloride [Moles/Vol] 98 mmol/L Normal 98-109 [facility] Comment on above: Performed By: #### C BCA, BMP #### [facility] ([id number]) [address], [address] [place] [address] CO2 [Moles/Vol] 35 mmol/L High 22-32 [facility] Comment on above: Performed By: #### C SEVERIANO, BMP #### [facility] ([id number]) [address], [address] [place] [address] Creatinine [Mass/Vol] 0.70 mg/dL Normal 0.40-1.00 [facility] Comment on above: Result Comment: METH OD TRACEABLE TO IDMS STANDARD Performed By: #### C SEVERIANO, BMP #### [facility] ([id number]) [address], [address] [place] [address] eGFR (CKD-EPI) NON-RACE DEPENDENT >90 Normal >59 [facility] Comment on above: Result Comment: Reported eGFR is based on the CKD-EPI 2020 equation that does not use a race coefficient. Performed By: #### C SEVERIANO, BMP #### [facility] ([id number]) [address], [address] [place] [address] Glucose [Mass/Vol] 110 mg/dL High 65-99 [facility] Comment on above: Performed By: #### C SEVERIANO, BMP #### [facility] ([id number]) [address], [address] [place] [address] Potassium [Moles/Vol] 4.0 mmol/L Normal 3.5-5.0 [facility] Comment on above: Performed By: #### C SEVERIANO, BMP #### [facility] ([id number]) [address], [address] [place] [address] Sodium [Moles/Vol] 137 mmol/L Normal 134-146 [facility] Comment on above: Performed By: #### C SEVERIANO, BMP #### [facility] ([id number]) [address], [address] [place] [address] Urea nitrogen [Mass/Vol] 25 mg/dL High 5-23 [facility] Comment on above: Performed By: #### C BCA, BMP #### [facility] ([id number]) [address], [address] [place] [address] Basic Metabolic Panelon 10-12 Anion gap [Moles/Vol] 4 mmol/L Low 5 - 15 mmol/L [facility] Calcium [Mass/Vol] 9.3 mg/dL 8.5 - 10. 5 mg/dL [facility] Chloride [Moles/Vol] 98 mmol/L 98 - 109 mmol/L [facility] CO2 [Moles/Vol] 35 mmol/L High 22 - 32 mmol/L [facility] Creatinine [Mass/Vol] 0.70 mg/dL 0.40 - 1.00 mg/dL [facility] Comment on above: METHOD TRACEABLE TO [facility] STANDARD eGFR (CKD-EPI)non-race dependent - PINF [facility] Comment on above: Reported eGFR is based on the CKD-EPI 2020 equation that does not use a race coefficient. Glucose [Mass/Vol] 110 mg/dL High 65 - 99 mg/dL [facility] Interpretation and review of laboratory results Abnormal [facility] Potassium [Moles/Vol] 4.0 mmol/L 3.5 - 5.0 mmol/L [facility] Sodium [Moles/Vol] 137 mmol/L 134 - 146 mmol/L [facility] Urea nitrogen [Mass/Vol] 25 mg/dL High 5 - 23 mg/dL [facility] CBC AND AUTO DIFFon 11-04-19 ABSOLUTE BASOPHIL 0.0 X10E9/L Normal 0.0-0.2 [facility] Comment on above: Performed By: #### C BCA, BMP #### [facility] ([id number]) [address], [address] [place] [address] ABSOLUTE NEUTROPHIL 2.5 X10E9/L Normal 1.5-6.6 [facility] Comment on above: Performed By: #### C BCA, BMP #### [facility] ([id number]) [address], [address] [place] [address] Basophils/100 WBC (Bld) 0.3 % Normal [facility] Comment on above: Performed By: #### C SEVERIANO, BMP #### [facility] ([id number]) [address], [facility] [address] [place] [address] Eosinophils (Bld) [#/Vol] 0.1 10*3/uL Normal 0.0-0.4 [facility] Comment on above: Performed By: #### C SEVERIANO, BMP #### [facility] ([id number]) [address], [facility] [address] [place] [address] Eosinophils/100 WBC (Bld) 1.8 % Normal [facility] Comment on above: Performed By: #### C SEVERIANO, BMP #### [facility] ([id number]) [address] [address] [place] [address] Erythrocyte distribution width (RBC) [Ratio] 14.8 % Normal 11.5-15.0 [facility] Comment on above: Performed By: #### C SEVERIANO, BMP #### [facility] ([id number]) [address] [address] [place] [address] Hematocrit (Bld) [Volume fraction] 33.1 % Low 35-47 [facility] Comment on above: Performed By: #### C SEVERIANO, BMP #### [facility] ([id number]) [address] [address] [place] [address] Hemoglobin (Bld) [Mass/Vol] 11.1 g/dL Low 11.7-15.5 [facility] Comment on above: Performed By: #### C SEVERIANO, BMP #### [facility] ([id number]) [address] [address] [place] [address] Lymphocytes (Bld) [#/Vol] 2.1 10*3/uL Normal 1.0-3.5 [facility] Comment on above: Performed By: #### C SEVERIANO, BMP #### [facility] ([id number]) [address], [address] [place] [address] Lymphocytes/100 WBC (Bld) 41.0 % Normal [facility] Comment on above: Performed By: #### C BCA, BMP #### [facility] ([id number]) [address], [address] [place] [address] MCH (RBC) [Entitic mass] 29.1 pg Normal 27-34 [facility] Comment on above: Performed By: #### C SEVERIANO, BMP #### [facility] ([id number]) [address], [address] [place] [address] MCHC (RBC) [Mass/Vol] 33.5 g/dL Normal 32-36 [facility] Comment on above: Performed By: #### C SEVERIANO, BMP #### [facility] ([id number]) [address], [address] [place] [address] MCV (RBC) [Entitic vol] 87 fL Normal 80-100 [facility] Comment on above: Performed By: #### C SEVERIANO, BMP #### [facility] ([id number]) [address], [address] [place] [address] Monocytes (Bld) [#/Vol] 0.4 10*3/uL Normal 0-0.9 [facility] Comment on above: Performed By: #### C SEVERIANO, BMP #### [facility] ([id number]) [address], [address] [place] [address] Monocytes/100 WBC (Bld) 7.9 % Normal [facility] Comment on above: Performed By: #### C BCA, BMP #### [facility] ([id number]) [address], [address] [place] [address] Neutrophils/100 WBC (Bld) 49.0 % Normal [facility] Comment on above: Performed By: #### C BCA, BMP #### [facility] ([id number]) [address], [address] [place] [address] Platelet mean volume (Bld) [Entitic vol] 7.5 fL Normal 7-12 [facility] Comment on above: Performed By: #### Sweetie العلي, BMP #### [facility] ([id number]) [address], [address] [address] Platelets (Bld) [#/Vol] 245 10*3/uL Normal 150-450 [facility] Comment on above: Performed By: #### Sweetie العلي, BMP #### [facility] ([id number]) [address], [address] [address] RBC COUNT 3.81 X10E12/L Normal 3.80-5.20 [facility] Comment on above: Performed By: #### Sweetie العلي, BMP #### [facility] ([id number]) [address], [address] [address] WBC (Bld) [#/Vol] 5.1 10*3/uL Normal 4.0-11.0 [facility] Comment on above: Performed By: #### Sweetie العلي, BMP #### [facility] ([id number]) [address], [address] [address] CBC auto differentialon 10-12 Basophils (Bld) [#/Vol] 0.0 10*3/uL [facility] Basophils/100 WBC (Bld) 0.3 % [facility] Eosinophils (Bld) [#/Vol] 0.1 10*3/uL [facility] Eosinophils/100 WBC (Bld) 1.8 % [facility] Erythrocyte distribution width (RBC) [Ratio] 14.8 % 11.5 - 15.0 % [facility] Hematocrit (Bld) [Volume fraction] 33.1 % Low 35 - 47 % [facility] Hemoglobin (Bld) [Mass/Vol] 11.1 g/dL Low 11.7 - 15.5 g/dL [facility] Interpretation and review of laboratory results Abnormal [facility] Lymphocytes (Bld) [#/Vol] 2.1 10*3/uL [facility] Lymphocytes/100 WBC (Bld) 41.0 % [facility] MCH (RBC) [Entitic mass] 29.1 pg 27 - 34 pg [facility] MCHC (RBC) [Mass/Vol] 33.5 g/dL 32 - 36 g/dL [facility] MCV (RBC) [Entitic vol] 87 fL 80 - 100 fL [facility] Monocytes (Bld) [#/Vol] 0.4 10*3/uL [facility] Monocytes/100 WBC (Bld) 7.9 % [facility] Neutrophils (Bld) [#/Vol] 2.5 10*3/uL [facility] Neutrophils/100 WBC (Bld) 49.0 % [facility] Platelet mean volume (Bld) [Entitic vol] 7.5 fL 7 - 12 fL [facility] Platelets (Bld) [#/Vol] 245 10*3/uL [facility] RBC (Bld) [#/Vol] 3.81 10*6/uL [facility] WBC corrected for nucl RBC Auto (Bld) [#/Vol] 5.1 [facility] HGB A1C (GLYCO-HGB)on 2023 Glucose [Mass/Vol] 120 mg/dL Normal [facility] Comment on above: Performed By: #### C BCA, BMP #### [facility] ([id number]) [address] [place] [address] HbA1c (Bld) [Mass fraction] 5.8 % High 4.4-5.6 [facility] Comment on above: Result Comment: NOTE ADA Guidelines Result HgbA1c Normal : less than 5.7 % Prediabetes : 5.7 % to 6.4 % Diabetes : > 6.4 % Use with caution in patients with abnormal hemoglobin variants as the half-life of red blood cells and in vivo glycation rates are affected. Performed By: #### C SEVERIANO, BMP #### [facility] ([id number]) [address], [address] [place] [address] Hemoglobin A1con 11-04-2023 Average glucose Estimated from glycated hemoglobin (Bld) [Mass/Vol] 120 mg/dL [facility] HbA1c (Bld) [Mass fraction] 5.8 % High 4.4 - 5.6 % [facility] Comment on above: NOTE ADA Guidelines Result HgbA1c Normal : less than 5.7 % Prediabetes : 5.7 % to 6.4 % Diabetes : > 6.4 % Use with caution in patients with abnormal hemoglobin variants as the half-life of red blood cells and in vivo glycation rates are affected. Interpretation and review of laboratory results Abnormal [facility] RAD - CT Reporton 10-15-2023 RAD - CT Report [id number] F [facility] RAD - CT Report [id number] F [facility] Consent for Procedure/Surger yon 10-12-2023 Consent for Procedure/Surgery [id number] FF [facility] Consent for Treatmenton Consent for Treatment [id number] F [facility] IntraOperative Documentson 0 10-12-2023 IntraOperative Documents [id number] FF [facility] Main OR Intraoperative Recor don 10-12-2023 Main OR Intraoperative Record IntraOp Document Type FTURO Summary Primary Physician: MAX RANDOLPHKavon Finalized Date/Time: 10/12/23 08:56:28 Pt. Name: MARANDA DAVIS Lorna/Sex: 1970 Female Med Rec #: [id number] Physician: Kavon SANTANA MD Financial #: [id number] Pt. Type: O Room/Bed: / Admit/Disch: 10/12/23 07:43:53 - Institution: Case Times FTURO Entry 1 Patient Times In Room 10/12/23 08:35:00 Out Room 10/12/23 08:50:00 Procedure Times Start 10/12/23 08:40:00 Stop 10/12/23 08:47:00 Anesthesia Times Last Modified By: Fidel PETERS, CAROLINEOR, Flores 10/12/23 08:45:25 Case Attendance FTURO Entry 1 Entry 2 Entry 3 Case Attendee Kavon SANTANA MD, Laura C Stocker RN, CAROLINEOR, Flores Role Performed Surgeon - Primary Scrub - Primary Principal Account Clerk - Primary Time In 10/12/23 08:35:00 10/12/23 08:35:00 10/12/23 08:35:00 Time Out 10/12/23 08:50:00 10/12/23 08:50:00 10/12/23 08:50:00 Procedure CYSTOSCOPY LOCAL WITH CYSTOSCOPY LOCAL WITH CYSTOSCOPY LOCAL WITH URETHRAL DILATION(.) URETHRAL DILATION(.) URETHRAL DILATION(.) Meliza shepard DOCUMENTUM CONSULTANT in room a . zac peters orienting Last Modified By: Fidel PETERS, CNOR, Fidel PETERS, CAROLINEOR, Fidel PETERS, CAROLINEOR, Flores 10/12/23 Flores 10/12/23 Flores 10/12/23 08:45:29 08:45:29 08:45:29 Surgical Procedures FTURO Entry 1 Procedure Description Procedure CYSTOSCOPY LOCAL WITH Modifiers . URETHRAL DILATION Surgeon Description CYSTO Primary Procedure Yes Primary Surgeon Kavon SANTANA MD Start 10/12/23 08:40:00 Stop 10/12/23 08:47:00 Anesthesia Type [...] bladder Outcomes Met? Yes Last Modified By: ALEJANDRA Parra RN, Ruthann 10/12/23 08:44:33 Post-Care Text: The patient is [...] 08:45 ALEJANDRA Parra RN, Ruthann 10/12/23 08:56 [facility] Main OR Preoperative Recordo n 10-12-2023 Main OR Preoperative Record Holding Area Document Type FTURO Summary Primary Physician: Kavon SANTANA MD Finalized Date/Time: 10/12/23 08:01:37 Pt. Name: MARANDA DAVIS Lorna/Sex: 1970 Female Med Rec #: [id number] Physician: Kavon SANTANA MD Financial #: [id number] Pt. Type: O Room/Bed: / Admit/Disch: 10/12/23 [...] patient had a pain pump [employer] for back pain Vitals - EU Blood Pressure 105/64 Pulse 58 bpm Respirations 14 br/min SPO2 Additional None RN Reviewed Yes Specimens Collected Last Modified By: ALEJANDRA Parra RN, Ruthann 10/12/23 08:01:35 Finalized By: ALEJANDRA Parra RN, Ruthann Document Signatures Signed By: ALEJANDRA Parra RN, Ruthann 10/12/23 08:01 [facility] Operative Reporton 4 Operative Report Patient: VINICIUS DAVIS Age: 53 [...] with antibiotic coverage, Follow up arranged. Normal [facility] Comment on above: Result Comment: Elec tronically Signed By: Kavon SANTANA MD\.br\Date and Time Signed: 10/12/23 08:49 EST Outpatient Surgery Discharge Instructionon 10-12-2023 Outpatient Surgery Discharge Instruction [id number] FF Normal [facility] CT urogramon 10-07-[address] CT [address]ro[address] [facility] [place] [address] CT Scan Report Signed Patient: Maranda Davis MR#: [id number] 7 : 1970 Acct:[id number] Age/Sex: 53 / F ADM Date: 10/07/23 Loc: CT Room: Type: [facility] Attending Dr: Katia Rashid PA-C Copies to: [...] hematuria. Impression dictated by: Moises Jenkins Jr., DPatriciaOPatricia10/07/2023 4:19 PM Dictation Location: [place] [address] Transcribed By: [facility] 10/07/23 161 Dictated By: Moises Jenkins Jr, DO 10/07/23 1614 Signed By: 10/07/23 161 [facility] Urine Cytology ([facility])on 11-18-2022 Urine Cytology Diagnosis Info Invalid Interpretation Code [facility] Comment on above: Result Comment: A:Ur ine,Urine:Voided Interpretation - MicroScopic Description - Adequacy - Gross Description Site ID:A color Yellow fixative Alcohol Specimen designated Urine received in alcohol preservative and labeled with the patient?s name, consists of 60ml clear yellow fluid. Electronically signed by : on: 09/17/2023 11:03:55 Performed By: #### 1 [id number] ####[facility] [address] [place] [address] Physician Referralon 023 Physician Referral [id number] F Normal [facility] Screenson 09-15-2023 Screens [id number] F Normal [facility] Ambulatory Visit Summaryon 1 11-15-2022 Ambulatory Visit Summary MARANDA DAVIS :1970 Visit Date:09/14/2023 Ambulatory Visit Instructions Your Diagnosis Asymptomatic microscopic hematuria Urinary hesitancy [place] (stress urinary incontinence, female) Former smoker Tests Performed Urnls Dip Stick Auto w/o Microscopy POC 10611 CT Urogram -- Results Pending -- Please visit your patient portal for your results or contact your primary care physician. Your Care Team Attending Physician - KATIA RASHID PA-C Primary Care Physician - AMINTA PARRISH Referring Physician - AMINTA PARRISH This Is Your Medications List cephalexin (Keflex [...] Cap) fluticasone nasal (fluticasone Nasal 0.05 mg/inh Colbert) omeprazole (omeprazole 40 mg Cap-DR) pregabalin (pregabalin [...] Schedule the Following Appointments Follow Up with TALA QUINTANILLA, RADHA NAVARRETE When: Comments: sched cysto w/ poss UD Where: [address] [place] [address] [id number] Medications What How Much When Instructions New cephalexin (Keflex 500 mg Cap) 1 Capsules By Mouth Every day take one day before procedure and take one day after procedure Pickup at [facility]/pharmacy #[id number] Changed oxybutynin (oxybutynin 10 mg ER Tab) 30 EA, 0 Refill(s), TAKE 1 TABLET BY MOUTH EVERY DAY IN THE MORNING Changed oxybutynin (oxybutynin 5 mg ER Tab) 1 Tablets By Mouth Every day Duration: 14 Days Pickup at [facility]/pharmacy #[id number] Unchanged amitriptyline (amitriptyline 25 mg Tab) [...] physician if questions or concerns Pharmacy Information [facility]/pharmacy #[id number]: [address], [place] [id number] [phone] What When Comments Stop Taking celecoxib (celecoxib 200 mg Cap) 56 EA, 0 Refill(s), TAKE 1 CAPSULE BY MOUTH TWICE A DAY NEEDED FOR PAIN Stop Taking fluticasone nasal (fluticasone Nasal 0.05 mg/ inh Colbert) 16 gm, 0 Refill(s), USE 2 SPRAY [...] Refill(s), TAKE (more content not included)... Normal [facility] Patient Educationon 09-14-20 Patient Education Urology Hematuria, [...] these instructions at home: Medicines ? Take siwi-abg-koqoyca and prescription medicines only as told by [...] the blood stops without treatment. ? Take tmhk-jba-clyykax and prescription medicines only as told by your health care provider. ? Drink enough fluid to keep your urine pale yellow. This information is not intended to replace advice given to you by your health care provider. Make sure you discuss any questions you have with your health care provider. Document Revised: 05/28/2021 Document Reviewed: 05/28/2021 [employer] Patient Education ? 2022 [employer]. Cystoscopy Cystoscopy is a procedure that is [...] including vitamins, herbs, eye drops, creams, and aaia-wjk-brgcmky medicines. (more content not included)... Normal [facility] Urine Cytology ([facility])on 11-15-2022 UC Method of Extraction Voided Normal [facility] Comment on above: Performed By: #### 1 [id number] ####[facility] [address] [place] [place] [address] Number of Jars 1 Invalid Interpretation Code [facility] Comment on above: Performed By: #### 1 [id number] ####[facility] [address] [facility] [place] [address] Specimen Urine Normal [facility] Comment on above: Performed By: #### 1 [id number] ####[facility] [address] [facility] [place] [address] Type of Service Technical Only Normal Fi [facility] Comment on above: Performed By: #### 1 [id number] ####[facility] [address] [facility] [place] [address] COVID Quick Testingon 2022 Result Negative [employer] Other Urinalysis - AUTOMATEDon Appearance (U) CLOUDY [employer] Other Bilirubin Ql (U) Negative [employer] Other Color (U) YELLOW [employer] Other Glucose Ql (U) Negative [employer] Other Hemoglobin Ql (U) MODERATE [employer] Other Ketones Ql (U) Negative [employer] Other Leukocyte esterase Test strip Ql (U) SMALL [employer] Other Nitrite Ql (U) Positive [employer] Other pH (U) 5.0 [pH] [employer] Other Protein Ql (U) 30 [employer] Other Specific gravity (U) [Rel density] 1.015 [employer] Other Urobilinogen (U) [Mass/Vol] 0.2 mg/dL [employer] Other Urinalysis - AUTOMATED [employer] [facility] [employer] Other Urine Cultureon 05-01-2023 Urine Culture >100,000 [employer] Other Bacteria identified Cx Nom (U) Reason for Exam Dysuria Urine ORGANISM: Escherichia coli (O:ESCCOL) [place] Count >100,000 Aerobic DIANA Charge (NMIC56) - [...] RESISTANT TO ALL B-LACTAM DRUGS. PERFORMED BY: [place] [id number] PATHOLOGIST LITERACY TUTOR LISA MORIN M.D. Normal [facility] Comment on above: Performed By: #### C UU #### [place] [id number] [place] C reactive protein [Mass/vol ume] in Serum or PlasmaOrdered By: River Cunha on 02-16-2023 CRP [Mass/Vol] 1.1 mg/dL 0.0-0.5 [facility] C-Reactive Proteinon 023 C-Reactive Protein 1.1 mg/dL High 0.0-0.[address] [facility] Comment on above: Result Comment: PERF ORMED BY: [place] [address] PATHOLOGIST LITERACY TUTOR LISA MORIN M.D. Performed By: #### C RP, CK, ESR #### [facility] [address] [place] [address] Creatine Kinaseon 02-16-2023 CK [Catalytic activity/Vol] 81 U/L Normal [facility] Comment on above: Result Comment: PERF ORMED BY: [place] [address] PATHOLOGIST LITERACY TUTOR LISA MORIN M.D. Performed By: #### C RP, CK, ESR #### [facility] [address] [place] [address] Creatine kinase [Enzymatic a ctivity/volume] in Serum or PlasmaOrdered By: River Cunha on 02-16-2023 CK [Catalytic activity/Vol] 81 U/L [facility] Erythrocyte Sedimentation Ra karina 02-16-2023 ESR (Bld) [Velocity] 28 mm/h Normal 0- [facility] Comment on above: Result Comment: PERF ORMED BY: [place] [address] PATHOLOGIST LITERACY TUTOR LISA MORIN M.D. Performed By: #### C RP, CK, ESR #### [facility] [address] [place], [place] [id number] [facility] Erythrocyte sedimentation ra te by Photometric methodOrdered By: River Cunha on 02-16-2023 ESR Photometric method (Bld) [Velocity] 28 mm/hr 0-29 [facility] CBC AUTO DIFFon 10-28-2022 BASO # 0.0 103/ul Normal 0.0-0.1 [facility] Comment on above: Performed By: #### C BC #### [facility] [address] [place] [address] [address] Amy Mejía Basophils/100 WBC (Bld) 0.5 % Normal 0.2-2.0 [facility] Comment on above: Performed By: #### C BC #### [facility] [address] [place] [address] [address] Amy Mejía EO # 0.1 103/ul Normal 0.0-0.7 [facility] Comment on above: Performed By: #### C BC #### [facility] [address] [place] [address] Dr. Amy Mejía Eosinophils/100 WBC (Bld) 2.0 % Normal 0.9-7.0 [facility] Comment on above: Performed By: #### C BC #### [facility] [address] [place] [address] Dr. Amy Mejía Erythrocyte distribution width (RBC) [Ratio] 15.2 % Critically high 11.0-15.0 [facility] Comment on above: Performed By: #### C BC #### [facility] [address] [place] [address] Dr. Amy Mejía Hematocrit (Bld) [Volume fraction] 33.0 % Critically low 36.0-48.0 [facility] Comment on above: Performed By: #### C BC #### [facility] [address] [place] [address] Dr. Amy Mejía Hemoglobin (Bld) [Mass/Vol] 10.4 g/dL Critically low 12.0-16.0 [facility] Comment on above: Performed By: #### C BC #### [facility] [address] [place] [address] Dr. Amy Mejía IG # 0.01 10e3/ul Normal 0.00-0.03 [facility] Comment on above: Performed By: #### C BC #### [facility] [address] [place] [address] Dr. Amy Mejía IG % 0.2 % Normal 0.0-0.5 [facility] Comment on above: Performed By: #### C BC #### [facility] [address] [place] [address] Dr. Amy Mejía LYMPH # 1.9 103/ul Normal 1.2-3.8 [facility] Comment on above: Performed By: #### C BC #### [facility] [address] [place] [address] Dr. Amy Mejía Lymphocytes/100 WBC (Bld) 34.7 % Normal 20.5-60.0 [facility] Comment on above: Performed By: #### C BC #### [facility] [address] [place] [address] Dr. Amy Mejía MANUAL DIFF REQ NO Normal [facility] Comment on above: Performed By: #### C BC #### [facility] [address] [place] [address] Dr. Amy Mejía MCH (RBC) [Entitic mass] 26.7 pg Normal 26.7-34.0 [facility] Comment on above: Performed By: #### C BC #### [facility] [address] [place] [address] Dr. Amy Mejía MCHC (RBC) [Mass/Vol] 31.5 g/dL Normal 29.9-35.2 [facility] Comment on above: Performed By: #### C BC #### [facility] [address] [place] [address] Dr. Amy Mejía MCV (RBC) [Entitic vol] 84.8 fL Normal 81.0-99.0 [facility] Comment on above: Performed By: #### C BC #### [facility] [address] [place] [address] Dr. Amy Mejía MONO # 0.5 103/ul Normal 0.3-0.8 [facility] Comment on above: Performed By: #### C BC #### [facility] [address] [place] [address] Dr. Amy Mejía Monocytes/100 WBC (Bld) 9.6 % Normal 1.7-12.0 [facility] Comment on above: Performed By: #### C BC #### [facility] [address] [place] [address] [address] Amy Mejía NEUT # 2.9 103/ul Normal 1.4-6.5 [facility] Comment on above: Performed By: #### C BC #### [facility] [address] [place] [address] [address] Amy Mejía Neutrophils/100 WBC (Bld) 53.0 % Normal 43.0-75.0 [facility] Comment on above: Performed By: #### C BC #### [facility] [address] [place] [address] Dr. Amy Mejía Platelet mean volume (Bld) [Entitic vol] 9.0 fL Critically low 9.5-13.5 [facility] Comment on above: Performed By: #### C BC #### [facility] [address] [place] [address] [address] Amy Mejía PLT 332 103/ul Normal 150-450 [facility] Comment on above: Performed By: #### C BC #### [facility] [address] [place] [address] Dr. Amy Mejía RBC 3.89 106/ul Critically low 4.20-5.40 [facility] Comment on above: Performed By: #### C BC #### [facility] [address] [place] [address] Dr. mAy Mejía WBC 5.5 103/ul Normal 4.0-11.0 [facility] Comment on above: Performed By: #### C BC #### [facility] [address] [place] [address] Dr[address]ía [address] HEAD WO CONon [...] MARY HOLMAN Date: 2022-10-28 01:43 Normal [facility] PROF CHEM 8 (BAS METB)on Anion gap [Moles/Vol] 7.8 mmol/L Normal [facility] Comment on above: Performed By: #### B MP #### [facility] [address] [place] [address] [address] Amy Mejía Calcium [Mass/Vol] 8.9 mg/dL Normal 8.5-10.1 [facility] Comment on above: Performed By: #### B MP #### [facility] [address] [place] [address] [address] Amy Mejía Chloride [Moles/Vol] 101 mmol/L Normal 98-107 [facility] Comment on above: Performed By: #### B MP #### [facility] [address] [place] [address] [address] Amy Mejía CO2 [Moles/Vol] 33.7 mmol/L Critically high 21.0-32.0 [facility] Comment on above: Performed By: #### B MP #### [facility] [address] [place] [address] [address] mAy Mejía Creatinine [Mass/Vol] 0.73 mg/dL Normal 0.55-1.02 [facility] Comment on above: Performed By: #### B MP #### [facility] [address] [place] [address] [address] Amy Mejía EGFR-AF [place] >60 Normal >=60 [facility] Comment on above: Performed By: #### B MP #### [facility] [address] [place] [address] [address] Amy Mejía EGFR-NON AF [place] >60 Normal >=60 [facility] Comment on above: Performed By: #### B MP #### [facility] [address] [place] [address] [address] Amy Mejía Glucose [Mass/Vol] 117 mg/dL Critically high 74-106 [facility] Comment on above: Performed By: #### B MP #### [facility] [address] [place] [address] [address] Amy Mejía Potassium [Moles/Vol] 3.5 mmol/L Normal 3.5-5.1 [facility] Comment on above: Performed By: #### B MP #### [facility] [address] [place] [address] [address] Amy Mejía Sodium [Moles/Vol] 139 mmol/L Normal 136-145 [facility] Comment on above: Performed By: #### B MP #### [facility] [address] [place] [address] [address] Amy Mejía Urea nitrogen [Mass/Vol] 15.0 mg/dL Normal 7.0-18.0 [facility] Comment on above: Performed By: #### B MP #### [facility] [address] [place] [address] [address] Amy Mejía Urea nitrogen/Creatinine [Mass ratio] 20.5 mg/mg Normal [facility] Comment on above: Performed By: #### B MP #### [facility] [address] [place] [address] Dr. Amy Mejía SCREENING MAMMOGRAM W/OSBALDO, BILATERAL*on [...] VERY IMPORTANT TO YOUR HEALTH. THE CURRENT [place] [employer] AND [employer] GUIDELINES RECOMMEND ANNUAL MAMMOGRAPHY BEGINNING AT AGE 40. THIS FACILITY UTILIZES A REMINDER SYSTEM TO ENSURE ALL PATIENTS RECEIVE A REMINDER NOTIFICATION AT THE APPROPRIATE TIME BASED ON THE RECOMMENDATIONS OF THIS EXAM. 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 ACCREDITED BY THE [facility] AND FDA. Report reported and signed by Tawana Irvin on 02/05/2022 1221 Normal [facility] [employer] XR TSPINE 2 VIEWSon 11-26-19 22 XR [...] CHAUNCEY FERRARA Date: 2021-11-26 10:26 Normal [facility] Office Visit (Cardiology)on 09-25-2021 Follow-up visit Diagnoses/Problems Assessed Preoperative clearance (V72.84) (Z01.818) Abnormal EKG (794.31) (R94.31) Class 2 obesity with body mass index (BMI) of 35.0 to 35.9 in adult (278.00,V85.35) (E66.9,Z68.35) Former smoker (V15.82) (Z87.891) Quit in 2014. Orders Abnormal EKG, Preoperative clearance IO EKG Electrocardiogram- 12 Lead; Status:Complete; Done: [id number] Class 2 obesity with body mass index (BMI) of 35.0 to 35.9 in adult Healthy Weight Tips; Status:Complete - Retrospective Authorization; Done: 10Yoq8701 SocHx: Former smoker Tobacco Use Screening; Status:Complete; Done: [id number] Patient Instructions By signing my name below, Ree Kelly LPN, Scribe, attest that this documentation has [...] Back Surgery History of Bunion Correction By Mellisa Procedure History of Complete colonoscopy 10/11/2016 History [...] Vital S (more content not included)... Normal [employer] Tobacco Screening.on 021 Fall risk assessment c) Not medically indicated -[facility] 250 DO Work Phone: Tobacco use status CP b) No -[facility] 250 DO Work Phone: Anesthesia Noteon 05-14-2021 Anesthesia Note [facility] Patient: MARANDA DAVIS [address] [place], [place] [id number] MR#: [id number] ANESTHESIA NOTE : Service Date: 05/14/21 1047 [...] Root,Ary 05/14/21 1047 Shashank Britt MD Normal [facility] BASIC MET PANELon 05-14-2021 Anion gap [Moles/Vol] 8 mmol/L Normal 6-18 [facility] Comment on above: Order Comment: CONSE RVATION Performed By: #### L 600.17613 #### Test performed at: [place] [address] Calcium [Mass/Vol] 8.2 mg/dL Low 8.5-10.1 [facility] Comment on above: Order Comment: CONSE RVATION Performed By: #### L 600.71685 #### Test performed at: [address] [address] Chloride [Moles/Vol] 101 mmol/L Normal 98-107 [facility] Comment on above: Order Comment: CONSE RVATION Performed By: #### L 600.08486 #### Test performed at: [address] [address] CO2 [Moles/Vol] 32 mmol/L Normal 21-32 [facility] Comment on above: Order Comment: CONSE RVATION Performed By: #### L 600.11721 #### Test performed at: [address] [address] Creatinine [Mass/Vol] 0.518 mg/dL Low 0.550-1.020 [facility] Comment on above: Order Comment: CONSE RVATION Performed By: #### L 600.01384 #### Test performed at: [address] [address] Glucose [Mass/Vol] 115 mg/dL High 70-99 [facility] Comment on above: Order Comment: CONSE RVATION Result Comment: Fast ing GLUCOSE reference range has been updated per (ADA) [place] [employer]'s recommendation. 01/03/2019 Performed By: #### L 600.19783 #### Test performed at: [address] [address] OSM 284 mosm/kg Normal 270-300 [facility] Comment on above: Order Comment: CONSE RVATION Performed By: #### L 600.98358 #### Test performed at: [address] [address] Potassium [Moles/Vol] 4.2 mmol/L Normal 3.5-5.1 [facility] Comment on above: Order Comment: CONSE RVATION Performed By: #### L 600.84257 #### Test performed at: [address] [address] Sodium [Moles/Vol] 137 mmol/L Normal 136-145 [facility] Comment on above: Order Comment: CONSE RVATION Performed By: #### L 600.09839 #### Test performed at: [address] [address] Urea nitrogen [Mass/Vol] 9 mg/dL Normal 7-18 [facility] Comment on above: Order Comment: CONSE RVATION Performed By: #### L 600.08324 #### Test performed at: [address] [address] CBC W/DIFFon 05-14-2021 BASO ABS 0.0 K/uL Normal 0.0-0.2 [facility] Comment on above: Order Comment: CONSE RVATION Performed By: #### L 600.63537 #### Test performed at: [address] [address] Basophils/100 WBC (Bld) 0.0 % Normal [facility] Comment on above: Order Comment: CONSE RVATION Performed By: #### L 600.69393 #### Test performed at: [place] [id number] EOS ABS 0.0 K/uL Normal 0.0-0.5 [facility] Comment on above: Order Comment: CONSE RVATION Performed By: #### L 600.36017 #### Test performed at: [address] [address] Eosinophils/100 WBC (Bld) 0.0 % Normal [facility] Comment on above: Order Comment: CONSE RVATION Performed By: #### L 600.15087 #### Test performed at: [address] [address] Erythrocyte distribution width (RBC) [Ratio] 13.5 % Normal 11.5-14.5 [facility] Comment on above: Order Comment: CONSE RVATION Performed By: #### L 600.95517 #### Test performed at: [address] [address] Hematocrit (Bld) [Volume fraction] 33.6 % Low 36.0-48.0 [facility] Comment on above: Order Comment: CONSE RVATION Performed By: #### L 600.53440 #### Test performed at: [address] [address] Hemoglobin (Bld) [Mass/Vol] 10.6 g/dL Low 12.0-15.0 [facility] Comment on above: Order Comment: CONSE RVATION Performed By: #### L 600.28343 #### Test performed at: [place] [address] IG % 0.4 % Normal [facility] Comment on above: Order Comment: CONSE RVATION Performed By: #### L 600.21396 #### Test performed at: [place] [address] IG ABS 0.04 K/uL Normal 0-0.05 [facility] Comment on above: Order Comment: CONSE RVATION Performed By: #### L 600.60884 #### Test performed at: [address] [address] Lymphocytes (Bld) [#/Vol] 1.3 10*3/uL Normal 1.2-3.5 [facility] Comment on above: Order Comment: CONSE RVATION Performed By: #### L 600.60194 #### Test performed at: [address] [address] Lymphocytes/100 WBC (Bld) 14.3 % Normal [facility] Comment on above: Order Comment: CONSE RVATION Performed By: #### L 600.55302 #### Test performed at: [address] [address] MCH (RBC) [Entitic mass] 28.4 pg Normal 25.4-34.6 [facility] Comment on above: Order Comment: CONSE RVATION Performed By: #### L 600.09181 #### Test performed at: [place] [id number] MCHC (RBC) [Mass/Vol] 31.5 g/dL Normal 31.5-36.5 [facility] Comment on above: Order Comment: CONSE RVATION Performed By: #### L 600.54095 #### Test performed at: [address] [address] MCV (RBC) [Entitic vol] 90.1 fL Normal 79.0-98.0 [facility] Comment on above: Order Comment: CONSE RVATION Performed By: #### L 600.27553 #### Test performed at: [address] [address] MONO ABS 0.6 K/uL Normal 0.0-1.0 [facility] Comment on above: Order Comment: CONSE RVATION Performed By: #### L 600.28994 #### Test performed at: [address] [address] Monocytes/100 WBC (Bld) 6.6 % Normal [facility] Comment on above: Order Comment: CONSE RVATION Performed By: #### L 600.63340 #### Test performed at: [address] [address] NEUTROPHIL ABS 7.4 K/uL High 1.4-6.6 [facility] Comment on above: Order Comment: CONSE RVATION Performed By: #### L 600.00624 #### Test performed at: [address] [address] Neutrophils/100 WBC (Bld) 78.7 % Normal [facility] Comment on above: Order Comment: CONSE RVATION Performed By: #### L 600.43530 #### Test performed at: [address] [address] NRBC # 0.000 K/uL Normal 0-0.012 [facility] Comment on above: Order Comment: CONSE RVATION Performed By: #### L 600.04544 #### Test performed at: [address] [address] NRBC % 0.0 /100 WBC Normal 0-0.2 [facility] Comment on above: Order Comment: CONSE RVATION Performed By: #### L 600.83757 #### Test performed at: [address] [address] Platelet mean volume (Bld) [Entitic vol] 9.1 fL Normal 8.7-12.4 [facility] Comment on above: Order Comment: CONSE RVATION Performed By: #### L 600.89375 #### Test performed at: [address] [address] Platelets (Bld) [#/Vol] 264 10*3/uL Normal 140-440 [facility] Comment on above: Order Comment: CONSE RVATION Performed By: #### L 600.92262 #### Test performed at: [address] [address] RBC (Bld) [#/Vol] 3.73 10*6/uL Normal 3.5-5.5 [facility] Comment on above: Order Comment: CONSE RVATION Performed By: #### L 600.03273 #### Test performed at: [address] [address] WBC (Bld) [#/Vol] 9.4 10*3/uL Normal 3.9-11.0 [facility] Comment on above: Order Comment: CONSE RVATION Performed By: #### L 600.39099 #### Test performed at: [address] [address] EST. CREAT CLRon 05-14-2021 EST. CREAT CLR 213.320 ML/MIN Normal [facility] Comment on above: Order Comment: CONSE RVATION Result Comment: This result is an ESTIMATED blood creatinine clearance value which is derived from the patient age, sex, weight, and previous blood creatinine result. Performed By: #### L 600.10881 #### Test performed at: [place] [address] GFR ESTIMATEon 05-14-2021 IF AMER > 60 Normal > 60 [facility] Comment on above: Order Comment: CONSE RVATION [...] for clinical interpretation. Performed By: #### L 600.18721 #### Test performed at: [place] [address] IF non-AFR AMER > 60 Normal > 60 [facility] Comment on above: Order Comment: CONSE RVATION Performed By: #### L 600.74455 #### Test performed at: [place] [address] Internal Med Progress Noteon 05-14-2021 Internal Med Progress Note [facility] Patient: MARANDA DAVIS [address] [place] [address] MR#: [id number] PROGRESS NOTE - Internal Medicine : 72 [...] NASAL CANNULA 05/14 418 Temp 36.2 05/14 0418 Pulse 87 05/14 0418 Resp 20 05/14 [...] in place. bowel sounds are active Chemistry 05/14/21512: Laboratory Tests 05/14/21 05: plan: Incentive spirometry pain meds as per [...] MD 05/14/21 1529 Sascha Van Resident Normal [facility] OT Therapy Recommendationson 05-14-2021 OT Therapy Recommendations [facility] Patient: MARANDA DAVIS [address] [place] [address] MR#: [id number] OT THERAPY RECOMMENDATIONS : 72 Service Date: 05/14/21 1249 Therapy Recommendations Therapy Recommendations Recommendations OT evaluation completed. OT recommends HOME with HOME HEALTH OT and Family assist upon discharge. OT will follow in house per OT POC. Electronically Signed eSign Date and Time Ana Robb OT 05/14/21 1250 Normal [facility] Orthopedic Progress Noteon 0 05-14-2021 Orthopedic Progress Note [facility] Patient: MARANDA DAVIS [address] [place] [address] MR#: [id number] [id number] PROGRESS NOTE - Orthopedic : 72 Service [...] Findings Laboratory Tests Last 24 Hrs 05/14 513 Chemistry Sodium (136 - 145 mmol/L) 137 [...] (%) 78.7 Lymph % (Auto) (%) 14.3 [place] % (Auto) (%) 6.6 (Auto) (%) 0.0 Baso % (Auto) (%) 0.0 Neut # (Auto) (1.4 - 6.6 K/uL) 7.4 H Lymph # (Auto) (1.2 - 3.5 K/uL) 1.3 [place] # (Auto) (0.0 - 1.0 K/uL) 0.6 [...] left hip Assessment D/C HOME TODAY WITH [facility] FOLLOW UP WITH DR CORREA IN 2 WEEKS Electronically Signed eSign Date and Time Shavonne Pool RN 05/14/21 1255 Joelle Correa MD Normal [facility] Orthopedic Progress Note [facility] Patient: MARANDA DAVIS [address] [place] [id number] MR#: [id number] PROGRESS NOTE - Orthopedic : 72 Service Date: 05/14/21 0939 Assessment and Plan - ICD10 Assessment PER DR CORREA I AM ORDERING A WHEELED WALKER FOR AMBULATION AT HOME DUE TO LEFT HIP REPLACEMENT. PATIENT IS AWARE AND STATES UNDERSTANDING. Electronically Signed eSign Date and Time Shavonne Pool RN 05/14/21 0940 Joelle Correa MD Normal [facility] Transfer From ([facility])on 05-14-2021 Transfer From ([facility]) From: [facility] Patient: AMRANDA DAVIS [address] [place] [id number] Birthdate: [birth year] Age: 51 Attending Physician: Joelle [...] Pool RN 05/14/21 0939 Joelle Correa MD [facility] z OT Inpatient Evaluationon 05-14-2021 z OT Inpatient Evaluation [facility] Patient: MARANDA DAVIS [address] [place] [id number] MR#: [id number] OT INPATIENT EVALUATION : 72 Inpatient OT HPI Date of Service 05/14/21 Time In: 1125 Time Out: 1143 Total Treatment Time (Mins) 18 Visit Reason LT HIP OA COVID - 19 SCREENING Surgery Type/Date s/p L LUI on 05.13.21 Referral Date 05/13/21 Tx Diagnosis: PAIN IN L LEG Insurance Name [facility] Course Pt is a right hand dominant [...] Arms, Long Handled Sponge, Long Shoe Horn, Public Health Nutritionist, Shower Chair, Sock Aid Bedroom Location 2nd [...] Tolerance, Function (more content not included)... Normal [facility] z PT Inpatient Progress Note on 05-14-2021 z PT Inpatient Progress Note [facility] Patient: MARANDA DAVIS [address] [place] [id number] MR#: [id number] PT INPATIENT PROGRESS NOTE : 72 Service [...] and saf (more content not included)... Normal [facility] CORONAVIRUSon 05-13-2021 SARS-CoV-2 (COVID-19) RNA BENTON+probe Ql [...] on the FDA website: https://www.fda.gov/Medi calDevices/Safety/ EmergencySituations/ucm1 74194.htm COVID-19 Negative for COVID-19 (SARS-CoV-2 RNA) Normal [facility] Comment on above: Order Comment: Frederic ts called to [facility] on 05/13/21 1020 by BHAVANI. CBN: YES [place]: MAIN COVID Testing: PRE-OP/PROCEDURE SCREEN Comment: 05/13 AGE at Spec ELIZABETH 51 Report age at specimen ELIZABETH? Y First test: UNKNOWN Employed in Healthcare: NO Symptomatic as defined by CDC: NO Hospitalized for COVID-19? NO ICU: NO Resident in a Congregated Care Setting: NO Order Date: 05/13/21 : Not Performed By: #### M 400.00053 #### Test performed at: [place] [address] GLUCOSE METERon 05-13-2021 Glucose [Mass/Vol] 94 mg/dL Normal 70-99 [facility] Comment on above: Result Comment: Fast ing GLUCOSE reference range has been updated per (ADA) [place] [employer]'s recommendation. 01/03/2019 Performed By: #### L 500.49499 #### Test performed at: [place] [id number] [employer] 05-13-2021 H & P [facility] Patient: MARANDA DAVIS [address] [place] [address] MR#: [id number] HISTORY and PHYSICAL : Service Date: 05/13/21 164 History of Present Illness HPI A 51 [...] Ref 0 (Reported) Entered as Reported by HELEN BENNETT on 12/08/18 1555 Last Taken: 05/12/21 [...] Reviewed on 05/13/21 104 by JITENDRA SIMS Cinnamon Bark (Cinnamon) 500 MG CAPSULE 500 MG PO BID, Ref 0 (Reported) Entered as Reported by JITENDRA SIMS on 05/13/21 1045 Last Action: Reviewed on 05/13/211045 by JITENDRA SIMS clonazePAM * (KlonoPIN 1mg Tablet*) 1 MG TABLET 1 MG PO HS, Ref 0 (Reported) Entered as Reported by REGIS PATEL on 12/14/14 1110 Last Action: Reviewed on 05/13/21 104 by JITENDRA SIMS DULoxetine HCl * (Cymbalta *) 60 MG CAPSULE.DR 60 MG PO BID, Ref 0 (Reported) Entered as Reported by JITENDRA SIMS on 05/13/21 104 Last Action: Continued on 05/13/21 1649 by KURTIS BAL Estradiol* (Estrace*) 2 MG TABLET 2 MG PO DAILY, Ref 0 (Reported) Entered as Reported by HELEN BENNETT on 12/08/18 1555 Last Action: Reviewed [...] 02/15/19 0916 Last Action: Reviewed on 05/13/21 1046 by JITENDRA SIMS traZODone HCL* (Desyryl*) 50 MG TABLET 50 MG PO QHS, Ref 0 (Reported) Entered as Reported by KOSTA BRAR on 02/15/19 0917 Last Action: Reviewed on 05/13/21 1046 by JITENDRA SIMS Scheduled PRN Medications Oxycodone HCl * (Roxicodone 5mg Tablet*) 5 MG TABLET 5 MG PO Q6PRN PRN Pain, Ref 0 ( Reported) Entered as Reported by JITENDRA SIMS on 05/13/21 1044 Last Action: Reviewed on 05/13/21 1046 by JITENDRA SIMS Discontinued Medications Baclofen * [...] 05/13/21 103 (more content not included)... Normal [facility] Internal Medicine Consultati onon 05-13-2021 Internal Medicine Consultation [facility] Patient: MARANDA DAVIS [address] [place] [id number] MR#: [id number] CONSULTATION - Internal Medicine : 72 Service [...] Ref 0 (Reported) Entered as Reported by HELEN BENNETT on 12/08/18 1555 Last Taken: 05/12/21 [...] 12/14/14 1110 Last Action: Reviewed on 05/13/21 104 by JITENDRA SIMS DULoxetine HCl * (Cymbalta *) 60 MG CAPSULE. 60 MG PO BID, Ref 0 (Reported) Entered as Reported by JITENDRA SIMS on 05/13/21 104 Last Action: Continued on 05/13/21 1649 by KURTIS BAL Estradiol* (Estrace*) 2 MG TABLET 2 MG PO DAILY, Ref 0 (Reported) Entered as Reported by HELEN BENNETT on 12/08/18 1555 Last Action: Reviewed on 05/13/21 104 by JITENDRA SIMS Furosemide Tablet (Lasix Tablet) 40 MG TABLET 40 MG PO BID, Ref 0 (Reported) Entered as Reported by JITENDRA SIMS on 05/13/21 104 Last Action: Reviewed on 05/13/21 104 by JITENDRA SIMS Omeprazole * (PriLosec *) 40 MG CAPSULE. 40 MG PO DAILY@6AM, Ref 0 (Reported) [...] as Reported by KOSTA BRAR on 02/15/19 09 Last Action: Reviewed on 05/13/21 104 by JITENDRA SIMS Scheduled PRN Medications Oxycodone HCl * (Roxicodone 5mg Tablet*) 5 MG TABLET 5 MG PO Q6PRN PRN Pain, Ref 0 ( Reported) Entered as Reported by JITENDRA SIMS on 05/13/21 1044 Last Action: Reviewed on 05/13/21 1046 by JITENDRA SIMS Discontinued Medications Baclofen * [...] 5 M (more content not included)... Normal [facility] OPERATIVE REPORTon OPERATIVE REPORT NAME: MARANDA DAVIS MR#: [id number] SURGEON: Joelle Correa MD DATE OF SURGERY: [...] capsule, closed the wound in typical fashion. [place] were used on the skin. She tolerated the procedure well and returned to recovery room in satisfactory condition. JOELLE CORREA MD LK/MODL/[id number] E/S: Joelle Correa MD 05/27/21 1217 Electronically Signed [facility] PT NAME: MARANDA DAVIS MR#: [id number] [address] [place] [address] ACCT: [id number] : 72 OPERATIVE REPORT Normal [facility] PELVIS 1 OR 2 VIEWSon 2020 PELVIS 1 OR 2 VIEWS STUDY: PELVIS 1 OR 2 VIEWS; ; 05/13/2021 2:30 pm; 05/13/2021 4:23 pm INDICATION: LEFT TOTAL HIP REPLACEMENT; S/P LEFT THR. COMPARISON: None. ACCESSION NUMBER(S): [id number]; [id number] ORDERING CLINICIAN: Joelle Cisneros FINDINGS: S/p left total hip replacement. The orthopedic hardware are intact in anatomic alignment. No acute fracture. Soft tissue swelling soft tissue gas, related to the postsurgical changes. IMPRESSION: Status post left total hip replacement in anatomic alignment. No acute fracture. Normal [facility] PT Therapy Recommendationson 05-13-2021 PT Therapy Recommendations [facility] Patient: MARANDA DAVIS [address] [place] [id number] MR#: [id number] PT THERAPY RECOMMENDATIONS : 72 Service Date: 05/13/211921 Therapy Recommendations Therapy Recommendations Recommendations Physical therapy evaluation completed. Will follow per acute PT plan of care BID, PRN. Rec D/C home /c family assist and HHPT. Renny Teixeira, PT, DPT Available via [facility] Electronically Signed eSign Date and Time Renny Teixeira PT 05/13/211922 Normal [facility] Primary Residenton Primary Resident [facility] Pt Name: MARANDA DAVIS MR#: [id number] [address] ACCT: [id number] [place] [id number] : 72 Service Date: 05/13/21 165 Primary Resident/Call Primary Resident: [id number] [place] After Hours Call: [phone] Red Team Electronically Signed eSign Date and Time Sascha Van 05/13/21 1651 Normal [facility] SURGon 05-13-2021 SURG Normal [facility] Comment on above: Result Comment: RUN DATE: 05/16/21 [facility] LAB *LIVE* PAGE 1RUN TIME: 1458 Specimen InquiryRUN USER: Say-Hey Name: MARANDA DAVIS : 72 Sex:F Attend Dr: Joelle Correa [facility]#: [id number] Unit#: [id number] Status: DIS Michel Location: Jazmin [id number] Received: 05/14/21 Status: AILEEN Carrillo#: [id number]#: [id number] Collected: 05/13/21-13[address] [facility] [address]: Joelle Correa MDTISSUES: A. LEFT HIP BONE & TISSUE MICROSCOPIC EXAM: Two H&E-stained slides including sections of decalcified tissue are examined. DIAGNOSIS: BONE AND TISSUE FROM LEFT HIP, TOTAL HIP REPLACEMENT: - DEGENERATIVE JOINT DISEASE Signed Signature on File SANDRA SALDAÑA 05/16/21 1458 Patricia [facility] Name: MARANDA DAVIS [facility] Hosp Num: [id number] A [facility] Age / Sex: 51/F [facility] Physician: [place] [address] [place] [address] Location: 6A SPINE/ORTHO UNIT END OF REPORT Performed By: #### L 300.79266 #### Test performed at: [place] [address] TSon 05-13-2021 ABO and Rh group Nom (Bld) Blood group O Rh(D) positive Normal [facility] Comment on above: Order Comment: CBN: NO [place]: MAIN Transfusion Status: CONSERVATION Blood Bank service requested: TYPE AND SCREEN Performed By: #### B 100.0200 #### Test performed at: [place] [address] z PT Inpatient Evaluationon 05-13-2021 z PT Inpatient Evaluation [facility] Patient: MARANDA DAVIS [address] [place] [address] MR#: [id number] PT INPATIENT EVALUATION : 72 Service Date: 05/13/211925 Inpatient PT HPI Date of Service 05/13/21 Time In: 1845 Time Out: 1905 Total Treatment Time (Mins) 20 Room Number 612 Visit Reason LT HIP OA COVID - 19 SCREENING Surgery Type: L LUI Surgery Date: 05/13/21 Referral Date 05/13/21 Tx Diagnosis: UNSTEADINESS ON FEET Insurance Name [facility] Course Pt is a 51 year old female [...] States upper level setup. 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 Objective Pain Pain Scale 5 Pain Character [...] W/Home Healt (more content not included)... Normal [facility] PELVIS 1 OR 2 VIEWSon 2020 PELVIS 1 OR 2 VIEWS STUDY: PELVIS 1 OR 2 VIEWS; ; 05/13/2021 2:30 pm; 05/13/2021 4:23 pm INDICATION: LEFT TOTAL HIP REPLACEMENT; S/P LEFT THR. COMPARISON: None. ACCESSION NUMBER(S): [id number]; [id number] ORDERING CLINICIAN: Joelle Cisneros FINDINGS: S/p left total hip replacement. The orthopedic hardware are intact in anatomic alignment. No acute fracture. Soft tissue swelling soft tissue gas, related to the postsurgical changes. IMPRESSION: Status post left total hip replacement in anatomic alignment. No acute fracture. Normal [facility] URINE CULTUREon 05-02-2021 Bacteria identified Cx Nom (U) SPECIMEN CONTAMINATED WITH NORMAL SKIN THANH NO URINARY PATHOGENS ISOLATED SUGGEST REPEAT IF CLINICALLY INDICATED Normal [facility] Comment on above: Performed By: #### M 100.37197 #### Test performed at: [place] [address] CBC W/DIFFon 04-30-2021 BASO ABS 0.0 K/uL Normal 0.0-0.2 [facility] Comment on above: Performed By: #### L 200.06825 #### Test performed at: [address] [address] Basophils/100 WBC (Bld) 0.5 % Normal [facility] Comment on above: Performed By: #### L 200.19256 #### Test performed at: [address] [address] EOS ABS 0.2 K/uL Normal 0.0-0.5 [facility] Comment on above: Performed By: #### L 200.00311 #### Test performed at: [address] [address] Eosinophils/100 WBC (Bld) 2.6 % Normal [facility] Comment on above: Performed By: #### L 200.59828 #### Test performed at: [address] [address] Erythrocyte distribution width (RBC) [Ratio] 13.6 % Normal 11.5-14.5 [facility] Comment on above: Performed By: #### L 200.21129 #### Test performed at: [address] [address] Hematocrit (Bld) [Volume fraction] 36.7 % Normal 36.0-48.0 [facility] Comment on above: Performed By: #### L 200.85361 #### Test performed at: [address] [address] Hemoglobin (Bld) [Mass/Vol] 11.5 g/dL Low 12.0-15.0 [facility] Comment on above: Performed By: #### L 200.97680 #### Test performed at: [address] [address] IG % 0.2 % Normal [facility] Comment on above: Performed By: #### L 200.92991 #### Test performed at: [address] [address] IG ABS 0.01 K/uL Normal 0-0.05 [facility] Comment on above: Performed By: #### L 200.24441 #### Test performed at: [address] [address] Lymphocytes (Bld) [#/Vol] 2.6 10*3/uL Normal 1.2-3.5 [facility] Comment on above: Performed By: #### L 200.98324 #### Test performed at: [address] [address] Lymphocytes/100 WBC (Bld) 45.3 % Normal [facility] Comment on above: Performed By: #### L 200.25436 #### Test performed at: [address] [address] MCH (RBC) [Entitic mass] 28.6 pg Normal 25.4-34.6 [facility] Comment on above: Performed By: #### L 200.03911 #### Test performed at: [address] [address] MCHC (RBC) [Mass/Vol] 31.3 g/dL Low 31.5-36.5 [facility] Comment on above: Performed By: #### L 200.17071 #### Test performed at: [address] [address] MCV (RBC) [Entitic vol] 91.3 fL Normal 79.0-98.0 [facility] Comment on above: Performed By: #### L 200.15679 #### Test performed at: [address] [address] MONO ABS 0.6 K/uL Normal 0.0-1.0 [facility] Comment on above: Performed By: #### L 200.32613 #### Test performed at: [address] [address] Monocytes/100 WBC (Bld) 10.8 % Normal [facility] Comment on above: Performed By: #### L 200.53444 #### Test performed at: [address] [address] NEUTROPHIL ABS 2.3 K/uL Normal 1.4-6.6 [facility] [facility] Comment on above: Performed By: #### L 200.15366 #### Test performed at: [address] [address] Neutrophils/100 WBC (Bld) 40.6 % Normal [facility] Comment on above: Performed By: #### L 200.23932 #### Test performed at: [address] [address] NRBC # 0.000 K/uL Normal 0-0.012 [facility] Comment on above: Performed By: #### L 200.95909 #### Test performed at: [address] [address] NRBC % 0.0 /100 WBC Normal 0-0.2 [facility] Comment on above: Performed By: #### L 200.76249 #### Test performed at: [address] [address] Platelet mean volume (Bld) [Entitic vol] 9.3 fL Normal 8.7-12.4 [facility] Comment on above: Performed By: #### L 200.60498 #### Test performed at: [address] [address] Platelets (Bld) [#/Vol] 303 10*3/uL Normal 140-440 [facility] Comment on above: Performed By: #### L 200.04133 #### Test performed at: [address] [address] RBC (Bld) [#/Vol] 4.02 10*6/uL Normal 3.5-5.5 [facility] Comment on above: Performed By: #### L 200.46273 #### Test performed at: [address] [address] WBC (Bld) [#/Vol] 5.7 10*3/uL Normal 3.9-11.0 [facility] Comment on above: Performed By: #### L 200.77754 #### Test performed at: [address] [address] IRON PROF W/FERon 04-30-2021 FERR 12.1 ng/mL Normal 8-252 [facility] Comment on above: Performed By: #### L 500.08239 #### Test performed at: [address] [address] Iron [Mass/Vol] 70 ug/dL Normal 50-170 [facility] Comment on above: Performed By: #### L 500.14670 #### Test performed at: [address] [address] IRON SAT 20 % Low 25-35 [facility] Comment on above: Performed By: #### L 500.82767 #### Test performed at: [address] [address] TIBC 347 ug/dL Normal 250-450 [facility] Comment on above: Performed By: #### L 500.12930 #### Test performed at: [address] [address] PROTIMEon 04-30-2021 INR Coag (PPP) [Relative time] 0.97 {INR} Normal 0.00-1.20 [facility] Comment on above: Order Comment: List patient's anticoagulants for PT: NONE SPECIFIED Result Comment: Aldair mmended therapeutic range is an INR of 2.0-3.0 except for prevention of recurrent acute IA and mechanical prosthetic heart valve where an INR of 2.5-3.5 is recommended. Performed By: #### L 300.91911 #### Test performed at: [place] [address] PT SEC 10.4 seconds Normal 9.0-12.5 [facility] Comment on above: Order Comment: List patient's anticoagulants for PT: NONE SPECIFIED Performed By: #### L 300.09219 #### Test performed at: [place] [address] UA COMPLETEon 04-30-2021 Appearance (U) CLOUDY Normal CLEAR [facility] Comment on above: Performed By: #### L 600.71459 #### Test performed at: [address] [address] BACTERIA Large Critically abnormal NONE OBSERV [facility] Comment on above: Performed By: #### L 600.03744 #### Test performed at: [place] [id number] Bilirubin Ql (U) Negative Normal NEGATIVE [facility] Comment on above: Performed By: #### L 600.41441 #### Test performed at: [address] [address] CA OXALATE CRY Trace Normal [facility] Comment on above: Performed By: #### L 600.81526 #### Test performed at: [place] [id number] Color (U) TAISHA Normal YELLOW [facility] Comment on above: Performed By: #### L 600.21028 #### Test performed at: [place] [id number] EPITH CELLS 11-15 Critically abnormal 0-10 [facility] Comment on above: Performed By: #### L 600.13789 #### Test performed at: [address] [address] Glucose Ql (U) Negative Normal NEGATIVE [facility] Comment on above: Performed By: #### L 600.57456 #### Test performed at: [address] [address] Hemoglobin Ql (U) Negative Normal NEGATIVE [facility] Comment on above: Performed By: #### L 600.26956 #### Test performed at: [place] [id number] KETONE Negative Normal NEGATIVE [facility] Comment on above: Performed By: #### L 600.93945 #### Test performed at: [place] [address] LEUK ESTERASE Negative Normal NEGATIVE [facility] Comment on above: Performed By: #### L 600.72446 #### Test performed at: [place] [address] Mucus Ql (Urine sed) Moderate Normal [facility] Comment on above: Performed By: #### L 600.82938 #### Test performed at: [address] [address] Nitrite Ql (U) Negative Normal NEGATIVE [facility] Comment on above: Performed By: #### L 600.45068 #### Test performed at: [address] [address] Protein Ql (U) 30 mg/dL Critically abnormal NEGATIVE [facility] Comment on above: Performed By: #### L 600.35990 #### Test performed at: [address] [address] RBC 6-10 Critically abnormal 0-3 [facility] Comment on above: Performed By: #### L 600.77759 #### Test performed at: [place] [address] SPEC GRAV 1.024 Normal 1.005-1.030 [facility] Comment on above: Performed By: #### L 600.21627 #### Test performed at: [place] [address] UA ASC ACID Negative Normal [facility] Comment on above: Performed By: #### L 600.77053 #### Test performed at: [place] [address] UA PH 5.0 Normal 5.0-8.0 [facility] Comment on above: Performed By: #### L 600.77484 #### Test performed at: [place] [address] UROBIL NORMAL Normal NORMAL [facility] Comment on above: Performed By: #### L 600.10312 #### Test performed at: [place] [address] WBC 21-50 Critically abnormal 0-5 [facility] Comment on above: Performed By: #### L 600.45848 #### Test performed at: [place] [address] MRI LUMBAR SPINE W WO CONTRA STOrdered [...] Kvng Katz at 12:08 PM on 01/24/2021. [employer] Phone: MRI lumbar spine wit hout and with contrast HISTORY: Back pain radiating to both hips and left leg. Subjective left leg weakness. COMPARISON: No prior lumbar MRI exams available for correlation. Attempts were made to obtain prior MRIs but none were available. 09/19/2018 CT lumbar spine report from [facility]. TECHNIQUE: Sagittal T1, T2, and inversion [...] previous CT report (more content not included)... [employer] Work Phone: Jonatan, [facility] Incoming Radiant Results From [employer] - 01/24/2021 12:58 PM EDT MRI lumbar spine without and with contrast HISTORY: Back pain radiating to both hips and left leg. Subjective left leg weakness. COMPARISON: No prior lumbar MRI exams available for correlation. Attempts were made to obtain prior MRIs but none were available. 09/19/2018 CT lumbar spine report from [facility]. TECHNIQUE: Sagittal T1, T2, and inversion [...] displace it posterio (more content not included)... [employer] Phone: MRI LUMBAR SPINE W WO CONTRA STon 01-24-2021 MRI LUMBAR SPINE W WO CONTRAST MRI lumbar spine without and with contrast HISTORY: Back pain radiating to both hips and left leg. Subjective left leg weakness. COMPARISON: No prior lumbar MRI exams available for correlation. Attempts were made to obtain prior MRIs but none were available. 09/19/2018 CT lumbar spine report from [facility]. TECHNIQUE: Sagittal T1, T2, and inversion [...] bony foramina (more content not included)... Normal [facility] POCT Venouson 01-24-2021 Creatinine [Mass/Vol] 0.6 mg/dL Normal 0.6-1.1 [facility] Comment on above: Performed By: #### P SIOBHAN #### [facility] [address] [facility] [address] GFR >60 Normal >60 [facility] Comment on above: Result Comment: >60 mL/min/1.73m2 EGFR, calc. for ages 18 and older using the MDRD formula (not corrected for weight), is valid for stable renal function. Performed By: #### P SIOBHAN #### [facility] [address] [facility] [address] GFR/1.73 sq M.predicted among blacks MDRD (S/P/Bld) [Vol rate/Area] mL/min/{1.73_m2} Normal >60 [facility] Comment on above: Result Comment: >60 mL/min/1.73m2 EGFR, calc. for ages 18 and older using the MDRD formula (not corrected for weight), is valid for stable renal function. Performed By: #### P SIOBHAN #### [facility] [address] [facility] [address] POC Performed on SEE BELOW Normal [facility] Comment on above: Result Comment: Perf ormed on POC Performed By: #### P SIOBHAN #### [facility] [address] [place] [address] POC Sample Type SIOBHAN Normal [facility] Comment on above: Performed By: #### P SIOBHAN #### [facility] [address] [place] [address] POCT VenousOrdered By: Aideno wn Result on 01-24-2021 Creatinine [Mass/Vol] 0.6 mg/dL 0.6 - 1.1 mg/dL [employer] Phone: GFR >60 >60 [employer] Phone: Comment on above: >60 mL/min/1.73m2 EG FR, calc. for ages 18 and older using the MDRD formula (not corrected for weight), is valid for stable renal function. GFR Non- >60 >60 [employer] Phone: Comment on above: >60 mL/min/1.73m2 EG FR, calc. for ages 18 and older using the MDRD formula (not corrected for weight), is valid for stable renal function. Performed on SEE BELOW [employer] Phone: Comment on above: Performed on POC Sample Type SIOBHAN [employer] Phone: PROGRESSon 05-12-2017 PROGRESS HNO ID: [id number]: Cruz Miramontes) Margarito: (none)Author Type: Physician AssistantType: [...] with hardware. In 2012 she had a [employer] system SCS implanted, 2 perc leads. She [...] over body pain and was diagnosed with [id number] years ago and, Chronic Lyme's disease and Lupus about 5 years ago.She is most bothered by her back and hip pain.Past Surgical History:PAST SURGICAL [id number]: BACK SURGERY HX Comment: fusion L3-[id number], 2010: BACK SURGERY HX Comment: L4-5 fusion, RHWNo date: BUNIONECTOMY, LAPIDUS-TYPENo date: CHG DELIVERYNo date: CHOLECYSTECTOMY HXNo date: HERNIA REPAIR HXNo date: HYSTERECTOMY [id number]: LAMINECTOMY,[id number]: PAST SURGICAL HISTORY OF Comment: spinal cord [...] diseaseCV: Denies history of chest pain, prior IA's, palpitations, heart failure,murmurs,, circulatory problems, leg swelling, [...] Wt 102.1 kg (225 lb) BMI 32.28 kg/t8Lsdumpqpvdcvys: Well developed, well nourishedSkin: [place], warm, dry, no lesions or rashesHead, Face, [...] for back pain.We will start with another CHILD CARE CENTER ASSISTANT DIRECTOR test and progress from thereDr. Scales present to discuss treatment optionsCruz Adrian PA-C [facility] CNOVon 05-11-2017 CNOV Office Visit ([id number]) MARANDA DAVIS ([id number]) 1970 FDate Time Provider Department05/11/17 3:40 PM CORKY SCALES NREU10 During your visit today, we recorded the following information about you: Pulse Blood pressure Weight Height 67/minute 117/72 102.1 kg 1.778 Sammy Scales MD 05/12/2017 5:12 PM [facility] ST[facility] NOTE OF PERSONAL INVOLVEMENT IN [...] leads which worked for a while, but [employer] system was unable toreprogram these leads to [...] one in 2006 and the last one [id number] that was a fusion with hardware. In 2012 she had a [employer] SCS implanted, 2 perc leads. She state [...] back and hip pain.Past Surgical History:PAST SURGICAL [id number]: BACK SURGERY HX Comment: fusion L3-[id number], 2010: BACK SURGERY HX Comment: L4-5 fusion, RHWNo date: BUNIONECTOMY, LAPIDUS-TYPENo date: CHG DELIVERYNo date: CHOLECYSTECTOMY HXNo date: HERNIA REPAIR HXNo date: HYSTERECTOMY [id number]: LAMINECTOMY,[id number]: PAST SURGICAL HISTORY OF Comment: spinal cord [...] diseaseCV: Denies history of chest pain, prior IA's, palpitations, heart failure,murmurs,, circulatory problems, leg swelling, [...] Wt 102.1 kg (225 lb) BMI 32.28 kg/m5Wrtvjdiblahnur: Well developed, well nourishedSkin: [place], warm, dry, no lesions or rashesHead, Face, [...] designed forback pain.We will start with another CHILD CARE CENTER ASSISTANT DIRECTOR test and progress from thereDr. Scales present to discuss treatment optionsALVARADO Gutierrez-CReferring Provider: KANDY GOMEZ [[id number]]Allergies As of Date: 05/11/2017(No Known Allergies)Date Reviewed: 05/11/2017Reviewed by: Nae (Pelon) PELON Recinos - Fully AssessedReason for Visit: New Patient Evaluation [154]Primary Visit Diagnosis:Chronic pain syndrome [G89.4] Other Visit Diagnosis:S/P lumbar fusion [Z98.1]Order(s):CONSULT TO NEURO/PSYCH [[id number]] Order #: [id number]: 1Prescriptions as of 05/11/2017 Sig: CLONAZEPAM 1 [...] RELEASE 12 HR >> Nae Recinos MA, PELON 05/11/2017 3:52 PM >> NAE RECINOS May [...] fusion [Z98.1] INVALID FOR* Status:Closed by CRUZ ADRIAN PA-C on 05/12/17 Normal [facility] PROGRESSon 05-11-2017 PROGRESS HNO ID: [id number]: Corky Webberervice: (none)Author Type: PhysicianType: Progress NotesFiled: 05/12/2017 5:12 PMNote Text:[facility] STAFF PHYSICIAN NOTE OF PERSONAL INVOLVEMENT IN [...] leads which worked for a while, but [facility] was unable to reprogram these leads to [...] a new neuropsycevaluation.SIGN ATURE: Corky Scales MD [facility] Vital Signs Date Time Vital Sign Value Performing Clinician Facility 06-08-2025 09:130400 Body height 177.8 cm Aminta Hemmer PA Work Phone: [facility] 06-08-2025 09:130400 Body mass index (BMI) [Ratio] 28.27 kg/m2 Aminta Hemmer PA Work Phone: [facility] 06-08-2025 09:130400 Body weight 89.36 kg Aminta Hemmer PA Work Phone: [facility] 06-08-2025 09:13-0400 Diastolic blood pressure 66 mm[Hg] Aminta Hemmer PA Work Phone: [facility] 06-08-2025 09:13-0400 Heart rate 56 /min Aminta Hemmer PA Work Phone: [facility] 06-08-2025 09:13-0400 SaO2% (BldA) [Mass fraction] 95 % Aminta Hemmer PA Work Phone: [facility] 06-08-2025 09:13-0400 Systolic blood pressure 108 mm[Hg] Aminta Hemmer PA Work Phone: [facility] 05-29-2025 13:01-0400 Body height 177.8 cm Oleg Saeed MD Work Phone: [facility] 05-29-2025 13:01-0400 Body mass index (BMI) [Ratio] 28.55 kg/m2 Oleg Saeed MD Work Phone: [facility] 05-29-2025 13:01-0400 Body weight 90.27 kg Oleg Saeed MD Work Phone: [facility] 05-29-2025 13:01-0400 Respiratory rate 16 /min Oleg Saeed MD Work Phone: [facility] 05-12-2025 10:01-0400 Body height 177.8 cm Grazyna Worley MD Work Phone: [facility] 05-12-2025 10:01-0400 Body mass index (BMI) [Ratio] 29.1 kg/m2 Grazyna Worley MD Work Phone: [facility] 05-12-2025 10:01-0400 Body temperature 96.6 [degF] Grazyna Worley MD Work Phone: [facility] 05-12-2025 10:01-0400 Body weight 92.07 kg Grazyna Worley MD Work Phone: [facility] 05-12-2025 10:01-0400 Diastolic blood pressure 48 mm[Hg] Grazyna Worley MD Work Phone: [facility] 05-12-2025 10:01-0400 Heart rate 50 /min Grazyna Worley MD Work Phone: [facility] 05-12-2025 10:01-0400 Respiratory rate 18 /min Grazyna Worley MD Work Phone: [facility] 05-12-2025 10:01-0400 SaO2% (BldA) [Mass fraction] 96 % Grazyna Worley MD Work Phone: [facility] 05-12-2025 10:01-0400 Systolic blood pressure 85 mm[Hg] Grazyna Worley MD Work Phone: [facility] 05-07-2025 13:58-0400 Body height 177.8 cm Aminta CHILDERS Work Phone: [facility] 05-07-2025 13:58-0400 Body mass index (BMI) [Ratio] 28.24 kg/m2 Aminta CHILDERS Work Phone: [facility] 05-07-2025 13:58-0400 Body weight 89.27 kg Aminta Hemmer PA Work Phone: [facility] 05-07-2025 13:58-0400 Diastolic blood pressure 72 mm[Hg] Aminta Hemmer PA Work Phone: [facility] 05-07-2025 13:58-0400 Heart rate 69 /min Aminta Hemmer PA Work Phone: [facility] 05-07-2025 13:58-0400 Respiratory rate 16 /min Aminta Hemmer PA Work Phone: [facility] 05-07-2025 13:58-0400 SaO2% (BldA) [Mass fraction] 97 % Aminta Hemmer PA Work Phone: [facility] 05-07-2025 13:58-0400 Systolic blood pressure 112 mm[Hg] Aminta Hemmer PA Work Phone: [facility] 03-06-2025 09:08-0400 Body height 177.8 cm Aminta Hemmer PA Work Phone: [facility] 03-06-2025 09:08-0400 Body mass index (BMI) [Ratio] 29.93 kg/m2 Aminta Hemmer PA Work Phone: [facility] 03-06-2025 09:08-0400 Body weight 94.62 kg Aminta Hemmer PA Work Phone: [facility] 03-06-2025 09:08-0400 Diastolic blood pressure 64 mm[Hg] Aminta Hemmer PA Work Phone: [facility] 03-06-2025 09:08-0400 Heart rate 59 /min Aminta Hemmer PA Work Phone: [facility] 03-06-2025 09:08-0400 Respiratory rate 16 /min Aminta Hemmer PA Work Phone: [facility] 03-06-2025 09:08-0400 SaO2% (BldA) [Mass fraction] 94 % Aminta Hemmer PA Work Phone: [facility] 03-06-2025 09:08-0400 Systolic blood pressure 102 mm[Hg] Aminta Hemmer PA Work Phone: [facility] 02-23-2025 11:06-0400 Body mass index (BMI) [Ratio] 29.7 kg/m2 Cody Visci DO Work Phone: [facility] 02-23-2025 11:06-0400 Body weight 93.89 kg Cody Visci DO Work Phone: [facility] 02-23-2025 11:06-0400 Diastolic blood pressure 66 mm[Hg] Cody Visci DO Work Phone: [facility] 02-23-2025 11:06-0400 Systolic blood pressure 98 mm[Hg] Cody Visci DO Work Phone: [facility] 01-02-2025 11:14-0400 Body height 177.8 cm Oleg Saeed MD Work Phone: [facility] 01-02-2025 11:14-0400 Body mass index (BMI) [Ratio] 30.99 kg/m2 Oleg Saeed MD Work Phone: [facility] 01-02-2025 11:14-0400 Body weight 97.98 kg Oleg Saeed MD Work Phone: [facility] 12-06-2024 10:20-0500 Body height 177.8 cm Aminta Hemmer PA Work Phone: [facility] 12-06-2024 10:20-0500 Body mass index (BMI) [Ratio] 29.9 kg/m2 Aminta Hemmer PA Work Phone: [facility] 12-06-2024 10:20-0500 Body temperature 98.8 [degF] Aminta Hemmer PA Work Phone: [facility] 12-06-2024 10:20-0500 Body weight 94.53 kg Aminta Hemmer PA Work Phone: [facility] 12-06-2024 10:20-0500 Diastolic blood pressure 66 mm[Hg] Aminta Hemmer PA Work Phone: [facility] 12-06-2024 10:20-0500 Heart rate 70 /min Aminta Hemmer PA Work Phone: [facility] 12-06-2024 10:20-0500 Respiratory rate 16 /min Aminta Hemmer PA Work Phone: [facility] 12-06-2024 10:20-0500 SaO2% (BldA) [Mass fraction] 95 % Aminta Hemmer PA Work Phone: [facility] 12-06-2024 10:20-0500 Systolic blood pressure 92 mm[Hg] Aminta Hemmer PA Work Phone: [facility] 11-14-2024 16:30-0500 Body height 177.8 cm Grazyna Worley MD Work Phone: [facility] 11-14-2024 16:30-0500 Body mass index (BMI) [Ratio] 30.13 kg/m2 Grazyna Worley MD Work Phone: [facility] 11-14-2024 16:30-0500 Body weight 95.25 kg Grazyna Worley MD Work Phone: [facility] 11-14-2024 16:30-0500 Diastolic blood pressure 80 mm[Hg] Grazyna Worley MD Work Phone: [facility] 11-14-2024 16:30-0500 Heart rate 71 /min Grazyna Worley MD Work Phone: [facility] 11-14-2024 16:30-0500 SaO2% (BldA) [Mass fraction] 94 % Grazyna Worley MD Work Phone: [facility] 11-14-2024 16:30-0500 Systolic blood pressure 118 mm[Hg] Grazyna Worley MD Work Phone: [facility] 09-12-2024 08:10-0500 Body height 177.8 cm Aminta Hemmer PA Work Phone: [facility] 09-12-2024 08:10-0500 Body mass index (BMI) [Ratio] 30.33 kg/m2 Aminta Hemmer PA Work Phone: [facility] 09-12-2024 08:10-0500 Body weight 95.89 kg Aminta Hemmer PA Work Phone: [facility] 09-12-2024 08:10-0500 Diastolic blood pressure 68 mm[Hg] Aminta Hemmer PA Work Phone: [facility] 09-12-2024 08:10-0500 Heart rate 64 /min Aminta Hemmer PA Work Phone: [facility] 09-12-2024 08:10-0500 Respiratory rate 16 /min Amitna Hemmer PA Work Phone: [facility] 09-12-2024 08:10-0500 SaO2% (BldA) [Mass fraction] 95 % Aminta Hemmer PA Work Phone: [facility] 09-12-2024 08:10-0500 Systolic blood pressure 100 mm[Hg] Aminta Hemmer PA Work Phone: [facility] 09-04-2024 10:04-0500 Body mass index (BMI) [Ratio] 30.71 kg/m2 Cody Visci DO Work Phone: [facility] 09-04-2024 10:04-0500 Body weight 97.07 kg Cody Visci DO Work Phone: [facility] 09-04-2024 10:04-0500 Diastolic blood pressure 70 mm[Hg] Cody Visci DO Work Phone: [facility] 09-04-2024 10:04-0500 Systolic blood pressure 104 mm[Hg] Cody Visci DO Work Phone: [facility] 08-11-2024 11:12-0400 Body mass index (BMI) [Ratio] 30.85 kg/m2 Cody Visci DO Work Phone: [facility] 08-11-2024 11:12-0400 Body weight 97.52 kg Cody Visci DO Work Phone: [facility] 08-11-2024 11:12-0400 Diastolic blood pressure 80 mm[Hg] Cody Visci DO Work Phone: [facility] 08-11-2024 11:12-0400 Systolic blood pressure 100 mm[Hg] Cody Visci DO Work Phone: [facility] 07-24-2024 13:30-0400 Body height 177.8 cm Grazyna Worley MD Work Phone: [facility] 07-24-2024 13:30-0400 Body mass index (BMI) [Ratio] 30.13 kg/m2 Grazyna Worley MD Work Phone: [facility] 07-24-2024 13:30-0400 Body weight 95.25 kg Grazyna Worley MD Work Phone: [facility] 07-24-2024 13:30-0400 Diastolic blood pressure 62 mm[Hg] Grazyna Worley MD Work Phone: [facility] 07-24-2024 13:30-0400 Heart rate 66 /min Grazyna Worley MD Work Phone: [facility] 07-24-2024 13:30-0400 SaO2% (BldA) [Mass fraction] 93 % Grazyna Worley MD Work Phone: [facility] 07-24-2024 13:30-0400 Systolic blood pressure 98 mm[Hg] Grazyna Worley MD Work Phone: [facility] 06-26-2024 09:35-0400 Body temperature 98.29 [degF] Edu Aguirre MD Work Phone: [facility] 06-26-2024 09:35-0400 Body weight 99.11 kg Edu Aguirre MD Work Phone: [facility] 06-26-2024 09:35-0400 Diastolic blood pressure 62 mm[Hg] Edu Aguirre MD Work Phone: [facility] 06-26-2024 09:35-0400 Heart rate 55 /min Edu Aguirre MD Work Phone: [facility] 06-26-2024 09:35-0400 Systolic blood pressure 100 mm[Hg] Edu Aguirre MD Work Phone: [facility] 11-04-2023 09:57-0500 Body height 177.8 cm [facility] 2 [facility] 11-04-2023 09:57-0500 Body mass index (BMI) [Ratio] 28.55 kg/m2 Pm 2 [facility] 11-04-2023 09:57-0500 Body weight 90.27 kg [facility] 2 [facility] 09-14-2023 09:40-0500 Blood Pressure Location KATIA RASHID [facility] 09-14-2023 09:40-0500 Diastolic blood pressure 70 mm[Hg] KATIA RASHID [facility] 09-14-2023 09:40-0500 Heart rate 58 /min KATIA RASHID [facility] 09-14-2023 09:40-0500 Respiratory rate 16 /min KATIA TALA [facility] 09-14-2023 09:40-0500 Systolic blood pressure 106 mm[Hg] KATIA RASHID [facility] 05-01-2023 09:00-0400 Body height 177.8 cm Sara Hoyos Other [employer] Other 05-01-2023 09:00-0400 Body mass index (BMI) [Ratio] 31.94 kg/m2 Sara Hoyos Other [employer] Other 05-01-2023 09:00-0400 Body temperature 97.8 [degF] Sara Hoyos Other [employer] Other 05-01-2023 09:00-0400 Body weight 100.97 kg Sara Hoyos Other [employer] Other 05-01-2023 09:00-0400 Diastolic blood pressure 55 mm[Hg] Sara Hoyos Other [employer] Other 05-01-2023 09:00-0400 Respiratory rate 18 /min Sara Hoyos Other [employer] Other 05-01-2023 09:00-0400 SaO2% (BldA) [Mass fraction] 95 % Sara Hoyos Other [employer] Other 05-01-2023 09:00-0400 Systolic blood pressure 98 mm[Hg] Sara Hoyos Other [employer] Other 09-25-2021 13:11-0500 Body height 177.8 cm [employer] Work Phone: [employer] 250 DO Work Phone: 09-25-2021 13:11-0500 Body mass index (BMI) [Ratio] 35.58 kg/m2 [employer] Work Phone: [employer] 250 DO Work Phone: 09-25-2021 13:11-0500 Body surface area Derived from formula 2.29 m2 [employer] Work Phone: [employer] 250 DO Work Phone: 09-25-2021 13:11-0500 Body weight 112.49 kg [employer] Work Phone: [employer] [facility] 250 DO Work Phone: 09-25-2021 13:11-0500 Diastolic blood pressure 76 mm[Hg] Grazyna Worley Work Phone: [facility] 250 DO Work Phone: 09-25-2021 13:11-0500 Heart rate 62 /min Grazyna Real Brunilda Work Phone: [facility] 250 DO Work Phone: 09-25-2021 13:11-0500 Systolic blood pressure 120 mm[Hg] Grazyna Real Brunilda Work Phone: [facility] 250 DO Work Phone: Encounters Encounter Date Encounter Type Care Provider Facility Start: 07-24-2025 ambulatory [facility] Start: 07-10-2025 End: 07-10-2025 Refill Aminta CHILDERS Work Phone: JENSEN Diaz Comment on above: Fibromyalgia Start: 07-09-2025 ambulatory [facility] Start: 07-09-2025 Encounter for other preprocedural examination [facility] Start: 07-05-2025 End: 07-05-2025 Refill Aminta CHILDERS Work Phone: JENSEN Diaz Comment on above: Obstructive sleep ap neri Start: 06-28-2025 End: 06-29-2025 Refill Grazyna Worley MD Work Phone: JENS[facility] Comment on above: Chronic pain syndrom e; Numbness and tingling of both legs Start: 06-15-2025 End: 06-15-2025 Refill Grazyna Worley MD Work Phone: JENSEN [facility] Comment on above: Sleep disturbance Start: 06-08-2025 End: 06-08-2025 Office outpatient visit 15 minutes Aminta CHILDERS Work Phone: [facility] Comment on above: Edema, unspecified t ype; Mild episode of recurrent major depressive disorder Start: 06-08-2025 End: 06-08-2025 ambulatory AMINTA FLORES Not Available Start: 06-04-2025 End: 06-04-2025 Refill Aminta Flores PA Work Phone: [facility] Comment on above: Obstructive sleep ap neri Start: 06-03-2025 End: 06-04-2025 Refill Aminta Flores PA Work Phone: [facility] Comment on above: Obstructive sleep ap neri Start: 05-29-2025 End: 05-29-2025 Office outpatient visit 15 minutes Oleg Saeed MD Work Phone: [facility] Comment on above: Macromastia (Primary Dx); Thoracic spine pain Start: 05-29-2025 ambulatory OLEG SAEED [facility] Start: 05-28-2025 End: 05-28-2025 Bamboo flowsheet Joleen Staton NP Work Phone: [facility] Start: 05-28-2025 End: 05-28-2025 Bamboo flowsheet Joleen Staton CHILD CARE CENTER ASSISTANT DIRECTOR Work Phone: [facility] Start: 05-28-2025 End: 05-28-2025 Office outpatient visit 15 minutes Joleen Staton NP Work Phone: [facility] Comment on above: Status post total ri ght knee replacement (Primary Dx); Acute pain of right knee Start: 05-28-2025 End: 05-28-2025 ambulatory JOLEEN STATON Not Available Start: 05-18-2025 End: 05-18-2025 Refill Aminta Flores PA Work Phone: [facility] Comment on above: Fibromyalgia Start: 05-14-2025 End: 05-14-2025 Refill Judy Campbell CHILD CARE CENTER ASSISTANT DIRECTOR Work Phone: [facility] [facility] Comment on above: Chronic pain syndrom e; Numbness and tingling of both legs Start: 05-12-2025 End: 05-12-2025 ambulatory Grazyna Worley MD Work Phone: [facility] Work Phone: Start: 05-12-2025 End: 05-12-2025 Patient encounter procedure Susan Jamesangela [employer] [place] Work Phone: Start: 05-07-2025 End: 05-07-2025 Bamboo flowsheet Aminta Flores PA Work Phone: [facility] [facility] Start: 05-07-2025 End: 05-07-2025 Bamboo flowsheet Aminta Flores PA Work Phone: [facility] [place] [facility] Start: 05-07-2025 End: 05-07-2025 Office outpatient visit 25 minutes Aminta CHILDERS Work Phone: [facility] [facility] Comment on above: Type 2 diabetes minh itus with diabetic polyneuropathy, without long-term current use of insulin (HCC) (Primary Dx); Obstructive sleep apnea; Generalized anxiety disorder ; Mild episode of recurrent major depressive disorder ; Gastroesophageal reflux disease without esophagitis; Overweight (BMI 25.0-29.9) Start: 05-07-2025 End: 05-07-2025 ambulatory AMINTA FLORES Not Available Start: 04-30-2025 End: 04-30-2025 Clinisync Result Encounter Generic External Data Provider [facility] External Department Unsolicited Start: 04-30-2025 End: 04-30-2025 Clinisync Result Encounter Generic External Data Provider [facility] External Department Unsolicited Start: 04-21-2025 End: 04-23-2025 Refill Grazyna Worley MD Work Phone: [facility] Comment on above: Sleep disturbance Start: 04-07-2025 End: 04-07-2025 Refill Aminta Flores PA Work Phone: [facility] Comment on above: Obstructive sleep ap neri Start: 04-06-2025 End: 04-06-2025 Refill Aminta Flores PA Work Phone: [facility] Comment on above: Obstructive sleep ap neri Start: 04-05-2025 End: 04-05-2025 Clinisync Result Encounter Generic External Data Provider [facility] External Department Unsolicited Start: 04-05-2025 End: 04-05-2025 Clinisync Result Encounter Generic External Data Provider [facility] External Department Unsolicited Start: 03-26-2025 End: 03-26-2025 Refill Carla Narayan BAG CHECKER Work Phone: [facility] Comment on above: Primary insomnia Start: 03-10-2025 End: 03-12-2025 Refill Aminta CHILDERS Work Phone: [facility] Comment on above: Obstructive sleep ap neri Start: 03-06-2025 End: 03-06-2025 Bamboo flowsheet Aminta Flores PA Work Phone: [facility] Start: 03-06-2025 End: 03-06-2025 Bamboo flowsheet Aminta Flores PA Work Phone: [facility] Start: 03-06-2025 End: 03-06-2025 Office outpatient visit 25 minutes Aminta CHILDERS Work Phone: [facility] Comment on above: Obstructive sleep ap neri (Primary Dx); Primary insomnia; Bilateral lower extremity edema; Fibromyalgia; Generalized anxiety disorder (CMS/HCC); Mild episode of recurrent major depressive disorder (HCC) (CMS/HCC); Chronic pain syndrome; Numbness and tingling of both legs Start: 03-06-2025 End: 03-06-2025 ambulatory AMINTA FLORES Not Available Start: 02-23-2025 End: 02-23-2025 Bamboo flowsheet Cody Urias DO Work Phone: [facility] Start: 02-23-2025 End: 02-23-2025 Bamboo flowsheet Cody Vinny Visci DO Work Phone: [facility] Start: 02-23-2025 End: 02-23-2025 Patient encounter status Cody Casillas Visckassandra DO Work Phone: [facility] Work Phone: Start: 02-23-2025 End: 02-23-2025 Periodic preventive med est patient 40-64yrs Cody Urias DO Work Phone: [facility] Comment on above: Encounter for gyneco logical examination with abnormal finding (Primary Dx); Encounter for screening mammogram for malignant neoplasm of breast; Vaginal atrophy; Hormone replacement therapy; Special screening for malignant neoplasms, vagina; Hot flashes due to menopause; Urinary hesitancy; Urinary frequency; Colon cancer screening Start: 02-23-2025 End: 02-23-2025 ambulatory CODY URIAS Not Available Start: 02-22-2025 End: 02-22-2025 Refill Grazyna Worley MD Work Phone: [facility] Comment on above: Sleep disturbance Start: 01-22-2025 End: 01-22-2025 Refill Grazyna Worley MD Work Phone: [facility] Comment on above: Sleep disturbance Start: 01-08-2025 End: 01-08-2025 Refill Aminta CHILDERS Work Phone: [facility] Comment on above: Obstructive sleep ap neri; Primary insomnia Start: 01-06-2025 End: 01-08-2025 Refill Aminta Flores PA Work Phone: [facility] Comment on above: Fibromyalgia Start: 01-02-2025 End: 01-02-2025 Office outpatient new 30 minutes Oleg Saeed MD Work Phone: [facility] Comment on above: Macromastia (Primary Dx); Thoracic spine pain Start: 01-02-2025 ambulatory OLEG SAEED [facility] Start: 12-06-2024 End: 12-06-2024 Bamboo flowsheet Aminta CHILDERS Work Phone: [facility] Start: 12-06-2024 End: 12-06-2024 Bamboo flowsheet Aminta Flores PA Work Phone: [facility] Start: 12-06-2024 End: 12-06-2024 Office outpatient visit 25 minutes Aminta CHILDERS Work Phone: [facility] Comment on above: Gastroenteritis ([facility] Dx); Obstructive sleep apnea; Mild episode of recurrent major depressive disorder (HCC) (CMS/HCC) Start: 12-06-2024 End: 12-06-2024 ambulatory AMINTA FLORES Not Available Start: 12-04-2024 End: 12-05-2024 Telephone encounter Carla Narayan LPN Work Phone: [facility] Start: 11-27-2024 End: 11-27-2024 Telephone encounter Grazyna Worley MD Work Phone: [facility] Start: 11-24-2024 End: 11-24-2024 Refill Aminta Flores PA Work Phone: [facility] Comment on above: Sleep disturbance Start: 11-20-2024 End: 11-20-2024 Bamboo flowsheet Helen Houser Apling CHILD CARE CENTER ASSISTANT DIRECTOR Work Phone: [facility] Start: 11-20-2024 End: 11-20-2024 Bamboo flowsheet Helen Houser Apling CHILD CARE CENTER ASSISTANT DIRECTOR Work Phone: [facility] Start: 11-20-2024 End: 11-20-2024 Office outpatient visit 10 minutes Helen Fox CHILD CARE CENTER ASSISTANT DIRECTOR Work Phone: [facility] Comment on above: History of total rig ht knee replacement (Primary Dx); Primary osteoarthritis of right knee Start: 11-20-2024 End: 11-20-2024 ambulatory HELEN Houser [employer]PLING Not Available Start: 11-14-2024 End: 11-14-2024 Office outpatient visit 25 minutes Grazyna Worley MD Work Phone: [facility] Comment on above: Depression, unspecif ied depression type (CMS/HCC) (Primary Dx); Fibromyalgia; Systemic lupus erythematosus, unspecified (CMS/HCC); Type 2 diabetes mellitus with diabetic polyneuropathy (CMS/[facility]) Start: 11-14-2024 End: 11-14-2024 ambulatory GRAZYNA WORLEY Not Available Start: 11-01-2024 End: 11-01-2024 Refill Aminta Flores PA Work Phone: [facility] Comment on above: Obstructive sleep ap neri Start: 10-25-2024 End: 10-25-2024 Refill Aminta Flores PA Work Phone: [facility] Comment on above: Sleep disturbance Start: 10-21-2024 End: 10-21-2024 Letter encounter Edu Aguirre MD Work Phone: [facility] Start: 10-20-2024 End: 10-20-2024 Refill Aminta Flores PA Work Phone: [facility] Comment on above: Fibromyalgia Start: 10-12-2024 End: 10-12-2024 Refill Grazyna Worley MD Work Phone: [facility] Comment on above: Chronic pain syndrom e; Numbness and tingling of both legs Start: 10-11-2024 End: 10-12-2024 Refill Aminta Flores PA Work Phone: [facility] Comment on above: Chronic pain syndrom e; Numbness and tingling of both legs Start: 10-01-2024 End: 10-02-2024 Refill Aminta Flores PA Work Phone: [facility] Comment on above: Obstructive sleep ap neri Start: 09-21-2024 End: 09-21-2024 Refill Grazyna Worley MD Work Phone: [facility] Comment on above: Sleep disturbance Start: 09-12-2024 End: 09-12-2024 Office outpatient visit 15 minutes Aminta Flores PA Work Phone: [facility] Comment on above: Fibromyalgia (Primar y Dx); Depressive disorder (CMS/HCC); Excessive sweating; Hot flashes due to menopause; Tension headache Start: 09-12-2024 End: 09-12-2024 ambulatory AMINTA FLORES Not Available Start: 09-11-2024 End: 09-11-2024 Bamboo flowsheet Helen Fox CHILD CARE CENTER ASSISTANT DIRECTOR Work Phone: [facility] Start: 09-11-2024 End: 09-11-2024 Bamboo flowsheet Helen Fox CHILD CARE CENTER ASSISTANT DIRECTOR Work Phone: [facility] Start: 09-11-2024 End: 09-11-2024 Office outpatient visit 10 minutes Helen Fox CHILD CARE CENTER ASSISTANT DIRECTOR Work Phone: [facility] Comment on above: Right knee pain, uns pecified chronicity (Primary Dx); History of total right knee replacement Start: 09-11-2024 End: 09-11-2024 ambulatory HELEN FOX Not Available Start: 09-04-2024 End: 09-04-2024 Office outpatient visit 15 minutes Cody A Visci DO Work Phone: [facility] Comment on above: Vaginal atrophy; Urinary urgency; Vulvar irritation; Hot flashes due to menopause Start: 09-04-2024 End: 09-04-2024 ambulatory CODY A VISCI Not Available Start: 09-03-2024 End: 09-04-2024 Refill Aminta Flores PA Work Phone: [facility] Comment on above: Obstructive sleep ap neri Start: 08-21-2024 End: 08-21-2024 Refill Aminta Flores PA Work Phone: [facility] Comment on above: Sleep disturbance Start: 08-17-2024 End: 08-28-2024 Telephone encounter Grazyna Worley MD Work Phone: [facility] Start: 08-11-2024 End: 08-11-2024 Bamboo flowsheet Cody A Visci DO Work Phone: [facility] Start: 08-11-2024 End: 08-11-2024 Bamboo flowsheet Cody A Visci DO Work Phone: [facility] Start: 08-11-2024 End: 08-11-2024 Office outpatient visit 25 minutes Cody Urias DO Work Phone: [facility] Comment on above: Vulvar irritation (P rimary Dx); Vaginal atrophy; Urinary urgency; Post-void dribbling; Hot flashes due to menopause Start: 08-11-2024 End: 08-11-2024 ambulatory CODY URIAS Not Available Start: 08-01-2024 End: 08-01-2024 Clinisync Result Encounter Grazyna Worley MD Work Phone: [facility] External Department Unsolicited Start: 08-01-2024 End: 08-01-2024 Clinisync Result Encounter Grazyna Worley MD Work Phone: [facility] External Department Unsolicited Start: 08-01-2024 End: 08-01-2024 Telephone encounter Grazyna Worley MD Work Phone: [facility] Start: 07-31-2024 End: 07-31-2024 Refill Grazyna Worley [...] Work Phone: [facility] Start: 07-24-2024 End: 09-12-2024 Patient encounter status Grazyna Worley MD Work Phone: [facility] Work Phone: Start: 07-24-2024 End: 07-24-2024 Periodic preventive med est patient 40-64yrs Grazyna Worley MD Work Phone: [facility] Comment on above: Encounter for well a dult exam without abnormal findings (Primary Dx); Hyperlipidemia, unspecified hyperlipidemia type ([facility]); Glucose intolerance (impaired glucose tolerance); Annual physical exam; Encounter for vaccination; Encounter for screening mammogram for malignant neoplasm of breast; Depressive disorder ([facility]); Hot flashes Start: 07-24-2024 End: 07-24-2024 ambulatory GRAZYNA WORLEY Not Available Start: 07-20-2024 End: 07-20-2024 Refill Aminta CHILDERS Work Phone: [facility] Comment on above: Sleep disturbance Start: 07-16-2024 End: 07-16-2024 Letter encounter Edu Aguirre MD Work Phone: [facility] Start: 06-30-2024 End: 06-30-2024 Telephone encounter Grazyna Worley MD Work Phone: [facility] Start: 06-29-2024 End: 06-29-2024 Refill Judy Campbell CHILD CARE CENTER ASSISTANT DIRECTOR Work Phone: [facility] Comment on above: Obstructive sleep ap neri Start: 06-26-2024 End: 06-26-2024 Subsequent hospital visit by physician Op Xray 1 [facility] Radiology Comment on above: Polyarthralgia Start: 06-26-2024 End: 06-26-2024 ambulatory [facility] PROVIDER [facility] Start: 06-26-2024 End: 06-26-2024 Office outpatient new 45 minutes Edu Aguirre MD Work Phone: [facility] Rheumatology (Arthritis) Comment on above: SASCHA positive (Primar y Dx); Polyarthralgia Start: 06-26-2024 End: 06-26-2024 ambulatory EDU AGUIRRE [facility] Start: 06-21-2024 End: 06-21-2024 Refill Aminta CHILDERS Work Phone: [facility] Comment on above: Sleep disturbance Start: 06-09-2024 End: 06-09-2024 Refill Cody Urias DO Work Phone: [facility] Comment on above: Hot flashes Start: 06-06-2024 End: 06-06-2024 Transcribe Orders Grazyna Worley MD Work Phone: [facility] Physician Referral Service Start: 12-03-2023 End: 12-03-2023 ambulatory NIKHIL Casillas ABREU [facility] Start: 12-01-2023 End: 12-03-2023 ambulatory [facility] Start: 12-01-2023 End: 12-02-2023 ambulatory [facility] Start: 11-30-2023 End: 12-01-2023 ambulatory [facility] Start: 11-19-2023 Refill Aminta Flores PA Work Phone: [facility] Comment on above: Obstructive sleep ap neri Start: 11-16-2023 Bamboo flowsheet Aminta Real Hemme r PA Work Phone: [facility] Start: 11-16-2023 Bamboo flowsheet Aminta M Hemme r PA Work Phone: [facility] Start: 11-12-2023 Refill Grazyna Oseguera Work Phone: [facility] Comment on above: Sleep disturbance Start: 11-04-2023 End: 11-05-2023 ambulatory [facility] Start: 11-04-2023 Encounter for other preprocedural examination [facility] Start: 11-04-2023 End: 11-04-2023 Patient encounter procedure [facility] Pre-Admission Testing 2 [facility] - Pre Admit Comment on above: Preop examination (P rimary Dx); Type 2 diabetes mellitus without complication, 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 ([facility]) Start: 11-04-2023 End: 11-04-2023 Preprocedural examination done [facility] 2 [facility] Start: 10-12-2023 End: 10-13-2023 ambulatory Kavon SANTANA Facility:[facility] Start: 10-12-2023 End: 10-12-2023 Patient encounter procedure Kavon R MAX [facility] Start: 10-07-2023 End: 10-07-2023 ambulatory Grazyna Worley Facility:[facility] Start: 09-14-2023 End: 09-15-2023 ambulatory PA-C KATIA RASHID Facility:[facility] Start: 09-14-2023 End: 09-15-2023 ambulatory AMINTA HEMMER Facility:[facility] Start: 09-14-2023 End: 09-14-2023 Lab Drop off KATIA RASHID [facility] Start: 09-14-2023 End: 09-14-2023 Patient encounter procedure KATIA RASHID [facility] Start: 07-14-2023 ambulatory AMINTA HEMMER Facility:[facility] Start: 05-01-2023 End: 05-01-2023 ambulatory Grazyna Worley [facility] [employer] Other Start: 05-01-2023 Office outpatient vi sit 15 minutes Sara Hoyos [facility] [place] Start: 02-16-2023 End: 02-16-2023 ambulatory Grazyna Worley Facility:[facility] Start: 02-16-2023 End: 02-16-2023 ambulatory MD Grazyna Worley Work Phone: [facility] Work Phone: Start: 02-16-2023 End: 02-16-2023 Patient encounter procedure MD Grazyna Worley Work Phone: [facility] [address] Work Phone: Start: 10-28-2022 End: 10-28-2022 ambulatory CAITY BARBER Facility:[facility] Start: 11-26-2021 End: 11-27-[address] GRAZYNA WORLEY Facility:[facility] Start: 09-25-2021 Office outpatient ne w 45 minutes [facility]razyna Worley [facility] DO Work Phone: Start: 01-24-2021 End: 01-27-2021 ambulatory GRAZYNA WORLEY [facility] Start: 01-24-2021 End: 01-26-2021 Subsequent hospital visit by physician [place] Mri Room 1 [facility] MRI Comment on above: Postlaminectomy synd erick, lumbar Start: 12-08-2018 Patient encounter procedure Errol Zepeda Facility:[id number] Start: 05-11-2017 End: 05-11-2017 Ambulatory CORKY SCALES [facility] state Grazyna Worley Work [facility]: [facility] DO Work Phone: Procedures Date Procedure Procedure Detail Performing Clinician Start: 05-28-2025 Radiologic examinati on knee 1/2 views Joleen Staotn CHILD CARE CENTER ASSISTANT DIRECTOR Work Phone: Start: 05-07-2025 Hemoglobin glycosylated a1c Aminta CHILDERS Work Phone: Start: 04-30-2025 MM TOMOSYNTHESIS SCR EENING BI Generic External Data Provider Start: 04-30-2025 Mammography Generic Pr ovider Start: 04-05-2025 Radiologic exam knee complete 4/more views Generic External Data Provider Start: 11-20-2024 Radiologic examinati on knee 1/2 views Helen Fox CHILD CARE CENTER ASSISTANT DIRECTOR Work Phone: Start: 09-11-2024 Radiologic examinati on knee 1/2 views Helen Fox CHILD CARE CENTER ASSISTANT DIRECTOR Work Phone: Start: 08-11-2024 Urnls dip stick/tabl et rgnt non-auto w/o micrscp Cody Urias DO Work Phone: Start: 08-01-2024 [facility] MICROALB CREAT R ATIO RANDOM Grazyna Worley MD Work Phone: Start: 07-24-2024 Hemoglobin glycosylated a1c Grazyna Worley [...] Comment on above: Order Comment: CBN: NO [place]: MAIN Transfusion Status: CONSERVATION Blood Bank service requested: TYPE AND SCREEN Performed By: #### B [id number] #### Test performed at: [place] [address] Start: 01-24-2021 Mri spinal canal lum bar w/o & w/contr matrl Kvng Katz MD Work Phone: Start: 01-24-2021 POCT VENOUS Unknown Pr ovider Result Abdominal hysterectomy DANIEL RASHID Back Surgery Grazyna Worley Work Phone: Bilateral tubal ligation JOLYNN RASHID Bunion Correction By Pak Procedure Grazyna Worley Work Phone: Cholecystectomy KATIA GODFREY Extraction of cataract DANIEL RASHID Hernia Repair Inguin al Sliding Grazyna Worley Work Phone: History of lumbar laminectomy KATIA RASHID Insertion of hip prosthesis KATIA RASHID Lumbar spinal fusion MINERVA RASHID Prosthetic arthropla sty of the hip Grazyna Worley Work Phone: Spinal Arthrodesis Grazyna bell Work Phone: Tonsillectomy KATIA RASHID Total colonoscopy Grazyna Funez Work Phone: Comment on above: 10/11/2016; Plan of Treatment Date Care Activity Detail Author Start: 06-15-2028 Screening for malign ant neoplasm of colon [facility] Start: 04-30-2026 Screening for malign ant neoplasm of breast Mammogram [facility] Start: 03-01-2026 End: 03-01-2026 Patient encounter procedure [facility] Start: 11-22-2025 End: 11-22-2025 Patient encounter procedure [facility] Start: 08-29-2025 End: 08-29-2025 Patient encounter procedure 08/29/2025 9:00 AM EST Office Visit [facility] [address] [place] [address] Aminta Flores PA [address] [place] [address] [facility] Start: 08-07-2025 Hemoglobin A1c measurement Diabetes: Hemoglobin A1C [facility] Start: 08-01-2025 Urine screening for protein Diabetes: Urine Protein Screening [facility] Start: 06-17-2025 Screening for malign ant neoplasm [facility] Start: 06-11-2025 Influenza vaccination Influenza Vacc ine (#1) [facility] Start: 06-09-2025 Screening for malign ant neoplasm of colon [facility] Start: 06-08-2025 End: 06-08-2025 Patient encounter procedure 06/08/2025 9:30 AM EDT Office Visit [facility] [address] [place] [address] Aminta Flores PA [address] [place] [address] [facility] [facility] Start: 06-06-2025 End: 06-06-2025 Patient encounter procedure [facility] Start: 05-28-2025 End: 05-28-2025 Patient encounter procedure [facility] Comment on above: Arrived Start: 05-14-2025 End: 05-14-2025 Patient encounter procedure 05/14/2025 8:15 AM EDT [facility] [address] [place] [phone] Joleen Staton, CHILD CARE CENTER ASSISTANT DIRECTOR [address] [place], [place] [phone] [facility] Start: 05-07-2025 End: 05-07-2025 Patient encounter procedure 05/07/2025 2:00 PM EDT Office Visit [facility] [place] [facility] [address] [place] [phone] Aminta Flores, PA [address] [place] [address] Arrived [facility] [place] [facility] Comment on above: Arrived Start: 04-26-2025 End: 04-26-2025 Professional / ancillary services management 04/26/2025 4:30 PM EDT Ancillary Procedure [facility] [place] [address] [place] [phone] [facility] Start: 04-12-2025 End: 04-12-2025 Professional / ancillary services management 04/12/2025 8:30 AM EDT Ancillary Procedure [facility] [place] [address] [place] [address] [facility] [place] Start: 03-06-2025 End: 03-06-2025 Patient encounter procedure [facility] Comment on above: Arrived Start: 02-23-2025 End: 04-25-2026 DBT Breast - bilateral screening Bilateral screening mammogram with tomosynthesis Imaging Routine Encounter for screening mammogram for malignant neoplasm of breast Expected: 02/23/2025, Expires: 04/25/2026 [facility] Comment on above: Expected: 02/23/2025 , Expires: 04/25/2026 Start: 02-23-2025 End: 02-23-2025 Patient encounter procedure [facility] Comment on above: Encounter for gyneco logical examination with abnormal finding; Encounter for screening mammogram for malignant neoplasm of breast; Vaginal atrophy; Hormone replacement therapy; Special screening for malignant neoplasms, vagina Start: 02-09-2025 End: 02-09-2025 Patient encounter procedure 02/09/2025 9:00 AM EDT Office Visit [facility] [address] [address] Cody Urias, DO [address] [place] [address] [facility] Start: 12-21-2024 End: 12-21-2024 Patient encounter procedure 12/21/2024 2:45 PM EDT Office Visit [facility] [address] [place] [phone] Cody Urias, DO [address] [place] [address] [facility] Start: 12-12-2024 End: 12-12-2024 Patient encounter procedure [facility] Start: 12-06-2024 End: 12-06-2024 Patient encounter procedure 12/06/2024 10:30 AM EST Office Visit [facility] [address] [facility] [address] [place] [address] Aminta Flores PA [address] [facility] [address] [place] [address] Arrived [facility] Comment on above: Arrived Start: 12-01-2024 End: 12-01-2024 Professional / ancillary services management 12/01/2024 12:30 PM EST Ancillary Procedure [facility] [place] [address] [place] [phone] [facility] [place] Start: 11-28-2024 End: 11-28-2024 Patient encounter procedure 11/28/2024 9:15 AM EST Office Visit [facility] [address] [place] [address] Carlos Calvert, [address] [place] [address] [facility] Start: 11-27-2024 End: 11-27-2024 Patient encounter procedure 11/27/2024 9:15 AM EST Office Visit [facility] [address] [place] [address] Helen Fox, YVONNE [address] [place] [address] [facility] Start: 11-23-2024 End: 11-23-2024 Professional / ancillary services management 11/23/2024 11:30 AM EST Ancillary Procedure [facility] [place] [address] [place] [phone] [facility] [place] Start: 11-20-2024 End: 11-20-2024 Patient encounter procedure [facility] Comment on above: History of total rig ht knee replacement (Primary Dx) Start: 11-04-2024 Adult BMI Screening Adult BMI Screen ing [facility] Start: 11-04-2024 Tobacco Screening Tobacco Screening [facility] Start: 10-24-2024 Hemoglobin A1c measurement Diabetes: Hemoglobin A1C [facility] Start: 09-25-2024 End: 09-25-2024 Professional / ancillary services management 09/25/2024 3:00 PM EST Ancillary Procedure [facility] [place] [address] [place] [address] [facility] [place] Start: 09-12-2024 End: 09-12-2024 Patient encounter procedure 09/12/2024 11:30 AM EST Office Visit [facility] [address] [place] [address] Aminta Flores PA [address] [place] [address] [facility] Start: 09-11-2024 End: 09-11-2024 Patient encounter procedure [facility] Comment on above: Primary osteoarthrit is of right knee (Primary Dx); Right knee pain, unspecified chronicity Start: 09-04-2024 End: 09-04-2024 Patient encounter procedure 09/04/2024 10:15 AM EST Office Visit [facility] [address] [place] [phone] Manjitkassandra Cody Casillas, DO [address] [place] [address] [facility] Start: 08-29-2024 End: 08-29-2024 Patient encounter procedure 08/29/2024 10:00 AM EST Office Visit [facility] [address] [facility] [address] [place] [address] Grazyna Worley MD [address] [place] [address] [facility] Start: 08-11-2024 End: 08-11-2024 Patient encounter procedure 08/11/2024 11:15 AM EDT Office Visit [facility] [address] [place] [address] KamleshCody Vinny, DO [address] [place] [address] Vaginal atrophy; Urinary urgency [facility] Comment on above: Vaginal atrophy; Urinary urgency Start: 07-24-2024 End: 07-24-2025 Lipid 1996 panel - Serum or Plasma Lipid panel Lab Routine Hyperlipidemia, unspecified hyperlipidemia type (CMS/HCC) Annual physical exam Expected: 07/24/2024 (Approximate), Expires: 07/24/2025 [facility] Work Phone: Comment on above: Expected: 07/24/2024 (Approximate), Expires: 07/24/2025 Start: 07-24-2024 End: 12-14-2025 MG Breast - bilateral Screening Bilateral screening mammogram Imaging Routine Encounter for screening mammogram for malignant neoplasm of breast Expected: 07/24/2024, Expires: 09/23/2025 [facility] Comment on above: Expected: 07/24/2024 , Expires: 09/23/2025 Start: 07-24-2024 End: 07-24-2025 Microalbumin/Creatinine panel in random Urine Microalbumin / creatinine urine ratio Lab Routine Glucose intolerance (impaired glucose tolerance) Annual physical exam Expected: 07/24/2024 (Approximate), Expires: 07/24/2025 [facility] Comment on above: Expected: 07/24/2024 (Approximate), Expires: 07/24/2025 Start: 07-24-2024 End: 07-24-2024 Patient encounter procedure [facility] Comment on above: Arrived Start: 07-11-2024 Influenza vaccination Influenza Vacc ine (#1) [facility] Start: 07-11-2024 End: 07-11-2024 Patient encounter procedure 07/11/2024 10:00 AM EDT Office Visit [facility] [address] [facility] [address] [place] [address] Grazyna Worley MD [address] [facility] [address] [place] [address] [facility] Start: 06-26-2024 End: 06-26-2025 XR Hand Arthritis [facility] Work Phone: Comment on above: Expected: 06/26/2024 , Expires: 06/26/2025 Start: 06-26-2024 End: 06-26-2024 Patient encounter procedure 06/26/2024 10:00 AM EDT Office [address] [facility] Rheumatology (Arthritis) [address] [place] [address] [id number] Edu Aguirre MD [address] [place] [address] [facility] Rheumatology (Arthritis) Start: 06-11-2024 COVID-19 Vaccine () COVID-19 Vaccine () [facility] Start: 06-11-2024 COVID-19 VACCINE ( season) COVID-19 VACCINE ( season) [facility] Start: 06-11-2024 Influenza vaccination Influenza Vacc ine (#1) [facility] Start: 04-24-2024 End: 04-24-2024 Patient encounter procedure 04/24/2024 11:30 AM EDT Office Visit [facility] [address] [place] [address] Cody Urias, DO [address] [place] [address] [facility] Start: 02-03-2024 Hemoglobin A1c measurement Diabetes: Hemoglobin A1C [facility] Start: 12-16-2023 Urine screening for protein Diabetes: Urine Protein Screening [facility] Start: 12-14-2023 End: 12-14-2023 Patient encounter procedure 12/14/2023 11:00 AM EST Office Visit [facility] [address] [place] [address] Carlos Calvert, DO [address] [place] [address] [facility] Start: 12-01-2023 End: 12-01-2023 Patient encounter procedure 12/01/2023 9:30 AM EST Procedure Visit [facility] Carlos Calvert, DO [address] [place] [address] [facility] Start: 12-01-2023 End: 12-01-2023 Admission to same day surgery center 12/01/2023 7:45 AM EST - 12/01/2023 10:15 AM EST Surgery [facility] - Surgery [address] [place] [phone] Carlos Calvert, DO [address] [place] [address] REPLACEMENT TOTAL JOINT KNEE [71901 (CPT )] [facility] Comment on above: REPLACEMENT TOTAL SKYLAR INT KNEE [40015 (CPT )] Start: 12-01-2023 End: 12-01-2023 Anesthesia consultation 12/01/2023 7:45 AM EST Anesthesia Event [facility] [address] [place] [phone] Nikhil Abreu MD [address] [place] [address] [facility] Start: 12-01-2023 End: 12-01-2023 Arthrp kne condyle&platu medial&lat compartments REPLACEMENT TOTAL JOINT KNEE right knee degenerative joint disease 12/01/2023 7:45 AM EST [facility] Start: 12-01-2023 Subsequent hospital visit by physician 12/01/2023 7:45 AM EST Hospital Encounter [facility] [address] [place] [phone] Carlos Calvert, DO [address] [facility] [address] [place] [address] [facility] Start: 11-30-2023 End: 11-30-2023 Professional / ancillary services management 11/30/2023 11:00 AM EST Ancillary Procedure [facility] [address] [place] [address] [facility] Start: 11-22-2023 End: 10-25-2024 Crossmatch RBC Crossmatch RBC Blood Bank Routine Preop examination Type 2 diabetes mellitus without complication, 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 ([facility]) Expected: 11/22/2023, Expires: 10/25/2024 [facility] Comment on above: Expected: 11/22/2023 , Expires: 10/25/2024 Start: 11-22-2023 End: 10-25-2024 Type and screen(includes indirect linden) Type and screen(includes indirect linden) Blood Bank Routine Preop examination Type 2 diabetes mellitus without complication, 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 Start: 06-09-2023 Screening for malign ant neoplasm of colon COLORECTAL CANCER SCREENING DISCUSSION [facility] Start: 02-05-2023 Screening for malign ant neoplasm of breast [facility] Start: 06-11-2021 Influenza vaccination Flu vacc ine (Season Ended) [employer] Phone: Start: 2021 Administration of varicella zoster vaccine Zoster (Shingles) Vaccine (1 of 2) [facility] Start: 2021 Pneumococcal vaccination [facility] Start: 2021 Screening for malign ant neoplasm of breast Breast cancer screen [employer] Phone: Start: 2021 Screening for malign ant neoplasm of colon Colon cancer screen colonoscopy [employer] Phone: Start: 2021 Shingles (RZV) Vacci ne (1 of 2) Shingles (RZV) Vaccine (1 of 2) [facility] Start: 2021 Shingles Vaccine (1 of 2) Shingles Vaccine (1 of 2) [facility] Phone: Start: 2021 Zoster vaccine hzv l piyush for subcutaneous use ZOSTER (SHINGLES) VACCINE (1 of 2) [facility] Start: 12-30-2020 Annual Wellness Visi t (AWV) Annual Wellness Visit (AWV) [employer] Phone: Start: 01-14-2016 Lipid panel Cholesterol [facility] Start: 01-14-2016 Screening for malign ant neoplasm of colon [facility] Start: [address] [facility] Start: 2011 Screening for malign ant neoplasm of breast Mammography [facility] Start: 01-14-1992 Screening for malign ant neoplasm of cervix [facility] Start: 1990 DTaP,Tdap and Td Vaccines (1 - Tdap) DTaP,Tdap and Td Vaccines (1 - Tdap) [facility] Start: 1990 DTaP/Tdap/Td vaccine (1 - Tdap) DTaP/Tdap/Td vaccine (1 - Tdap) [employer] Phone: Start: 1990 Hepatitis A (HAV) Vaccine (optional start 19+ years) Hepatitis A (HAV) Vaccine (optional start 19+ years) [facility] Start: [address] [facility] Start: 1990 Tetanus vaccination Tetanus (T d or Tdap) Booster [facility] Start: 1990 Third diphtheria, tetanus and acellular pertussis (DTaP) vaccination TDAP (ADULT) [facility] Start: 1990 Urine screening for protein Diabetes: Urine Protein Screening [facility] Start: 1989 Adult BMI Follow Up Plan Adult BMI Follow Up Plan [facility] Start: 1989 Diabetic foot examination Diabetic Foot Exam [facility] Start: 1989 Hepatitis C screening Hepatitis C An tibody [facility] Start: 1989 Tdap Booster Tdap Booster [facility] Start: 1987 COVID-19 Vaccine (1) COVID-19 Vaccin e (1) [employer] Phone: Start: 1986 HIV screening [facility] Start: 1983 Depression Screening Depression Scre ening [facility] Start: 1981 Glaucoma screening Diabetes: R etinopathy Screening [facility] Start: 1977 Pneumococcal 0-64 ye ars Vaccine (1 of 1 - PPSV23) Pneumococcal 0-64 years Vaccine (1 of 1 - PPSV23) [facility] Work Phone: Start: 1971 Glaucoma screening Diabetic Op hthalmology Exam [facility] Start: 1971 Hepatitis C screening A [facility] Start: 1971 Screening for malign ant neoplasm of colon [facility] Start: 1971 Screening for malign ant neoplasm of lung Lung Cancer Screening Shared Decision Making [facility] Start: 1971 Tetanus vaccination TETANUS [facility] Antinuclear antibodi es sascha AUTOIMMUNE MULTIPLEX PANEL Lab Routine SASCHA positive Polyarthralgia 06/26/2024 11:[address] [facility] Cyclic citrullinated peptide antibody CYCLIC CITRULLINATED PEPTIDE,* Lab Routine SASCHA positive Polyarthralgia 06/26/2024 11:10 AM EDT [facility] Noninvasive colorect al cancer DNA and occult blood screening [Presence] in Stool Cologuard colon cancer screening Lab Routine Colon cancer screening Ordered: 02/23/2025 [facility] Comment on above: Ordered: 02/23/2025 PAP IG (IMAGE GUIDED) PAP IG (IM AGE GUIDED) Lab Routine Special screening for malignant neoplasms, vagina Ordered: 02/23/2025 [facility] Work Phone: Comment on above: Ordered: 02/23/2025 End: 01-24-2021 POCT Creatinine POCT Creatinine Point of Care Testing Routine One Time for 1 Occurrences starting 01/24/2021 until 01/24/2021 [facility] Work Phone: Comment on above: One Time for 1 Occur rences starting 01/24/2021 until 01/24/2021 Reduction mammaplasty BREAST RED UCTION Macromastia MATT G[facility] OR Immunizations Immunization Date Immunization Notes Care Provider Fa cili 07-24-2024 influenza, seasonal, injectable, preservative free Grazyna Worley MD Work Phone: [facility] 07-24-2024 influenza virus vaccine, unspecified formulation Grazyna Worley MD Work Phone: [facility] 07-14-2023 influenza, injectabl e, quadrivalent, preservative free Grazyna Worley MD Work Phone: [facility] 07-14-2023 influenza virus vaccine, unspecified formulation Grazyna Worley MD Work Phone: [facility] 07-11-2023 influenza virus vaccine, unspecified formulation KATIA RASHID [facility] 07-16-2020 influenza, injectabl e, quadrivalent, preservative free Rugen M Moraga Work Phone: [facility] 07-08-2017 seasonal influenza, intradermal, preservative free Rugen M Brunilda Work Phone: [facility] 07-22-2016 seasonal influenza, intradermal, preservative free Rugen M Moraga Work Phone: [facility] 250 DO Work Phone: Payers Date Payer Category Payer Self-pay [id number] 2022 Unknown [id number] 2014 [facility] [id number] [id number] 2014 Managed Care (unspecified) [facility] PPO POS [id number] 2014 Unknown 2012 Medicare MEDICARE MEDICAR E PART A [id number] 2012-Present [address] [place] [address] Medicare [id number] 2012 Medicare FFS MEDICARE [id number] 2012 Medicare [id number] 1971 Unknown [id number] 2.16.840.1.634529.3.579. 2.356 1971 Unknown [id number] 2.16.840.1.786276.3.579. 2.182 1971 Unknown [id number] 2.16.840.1.030664.3.579. 2.593 1971 Unknown [id number] 2.16.840.1.844605.3.579. 2.593 1971 Unknown [id number] 2.16.840.1.463413.3.579. 2.727 1971 Unknown [id number] 2.16.840.1.238192.3.579. 2.727 1971 Unknown [id number] 2.16.840.1.319838.3.579. 2.727 1971 Unknown [id number] 2.16.840.1.519404.3.579. 2.1286 1971 Unknown [id number] 2.16.840.1.940426.3.579. 2.1286 1971 Unknown [id number] 2.16.840.1.810673.3.579. 2.1286 1971 Unknown [id number] 2.16.840.1.444159.3.579. 2.1286 1971 Unknown [id number] 2.16.840.1.466014.3.579. 2.128 1971 Unknown [id number] 2.16840.1.200174.3.579. 2.1285 1971 Unknown [id number] 2.16.840.1.275580.3.579. 2.1285 1971 Unknown [id number] 2.16840.1.205054.3.579. 2.1285 1971 Unknown [id number] 2.16840.1.856942.3.579. 2. 1971 Unknown [id number] 2.840.1.228776.3.579. 2. 1971 Unknown [id number] 2.840.1.633903.3.579. 2. 1971 Unknown [id number] 2.0.1.597186.3.579. 2.1258 1971 Unknown [id number] 2.840.1.914717.3.579. 2.1258 1971 Unknown [id number] 2.0.1.273046.3.579. 2.1258 1971 Unknown [id number] 2.840.1.979794.3.579. 2.1258 1971 Unknown [id number] 2.0.1.457716.3.579. 2.1258 1971 Unknown [id number] 2.840.1.622609.3.579. 2.1258 1971 Unknown [id number] 2.840.1.472659.3.579. 2.1258 1971 Unknown [id number] 2.16840.1.161964.3.579. 2.1258 1971 Unknown [id number] 2.840.1.857127.3.579. 2.1258 1971 Unknown [id number] 2.16840.1.851738.3.579. 2.9 1971 Unknown [id number] 2.16840.1.595464.3.579. 2.1258 1971 Unknown [id number] 2.16840.1.374325.3.579. 2.1258 1971 Unknown [id number] 2.16840.1.646503.3.579. 2.1258 1971 Unknown [id number] 2.840.1.421058.3.579. 2.1258 1971 Unknown [id number] 2.840.1.457152.3.579. 2.1258 1971 Unknown [id number] 2.840.1.305360.3.579. 2.1258 1971 Unknown [id number] 2.0.1.822155.3.579. 2. 1971 Unknown [id number] 2.840.1.564962.3.579. 2. 1971 Unknown [id number] 2.840.1.866398.3.579. 2. 1971 Unknown [id number] 2.16840.1.245156.3.579. 2.983 1959 Unknown [id number] Unknown [place] / [id number] Unknown [id number] 2.840.1.329396.3.579. 2.531 Unknown [id number] 2.840.1.744808.3.579. 2.531 Unknown [id number] 2.840.1.181548.3.579. 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) [employer] Phone: Start: 1970 Sex Assigned At Not on file [employer] Phone: Exposure to SARS-CoV -2 (event) Not sure [facility] Phone: Start: 1970 Sex Assigned At Female F [facility] Start: 03-31-2023 End: 03-06-2025 Sex Assigned At [facility] Start: 09-14-2023 End: 06-08-2025 Tobacco smoking status Ex-smoker (finding) [facility] Start: 01-27-1983 End: 10-11-2014 History of tobacco use Current smoker [facility] Start: 11-04-2023 End: 06-08-2025 Alcohol intake Ex-drinker (finding) [facility] How [...] to any clubs or organizations such as amish groups, unions, fraternal or athletic groups, or school groups? Yes [facility] Are you now , , , , never or living with a partner? [facility] How many standard dr inks containing alcohol do you have on a typical day? Patient does not drink [facility] Do you feel stress - tense, restless, nervous, or anxious, or unable to sleep at night because your mind is troubled all the time - these days [OSQ] Only a little [facility] (I/We) worried wheth er (my/our) food would run out before (I/we) got money to buy more. Never true [facility] Start: 06-26-2024 Tobacco smoking stat [facility] Never smoked tobacco [facility] Do you feel stress - tense, restless, nervous, or anxious, or unable to sleep at night because your mind is troubled all the time - these days [OSQ] Not at all [facility] Start: 06-24-2024 Education 21 [facility] Start: 06-26-2024 Gender identity Identifies as female gender (finding) [facility] Tobacco smoking stat [facility] Tobacco smoking consumption unknown [facility] Start: 11-04-2023 Alcohol intake Lifetime non-d sandie (finding) [facility] Start: 06-02-2024 End: 12-22-2024 Sex Female (finding) [facility] Start: 12-22-2024 Sexual orientation Heterosexual (fin ding) [facility] How hard is it for y ou to pay for the very basics like food, housing, medical care, and heating Hard [facility] Start: 06-08-2025 Tobacco use and exposure Forme r smokeless tobacco user [facility] Start: 06-08-2025 Tobacco Comment Started at age 13 [facility] Medical Equipment Procedure Code Equipment Code Equipment Origin al Text Equipment Identifier Dates Pump Infuse Pain Synchromed Ii 40ml - [id number] Start: 09-24-2017 Goals Date Patient Goal Desired Activity /State Personal health goal Functional Status Date Assessment Result Facility 05-07-2025 Patient Health Quest ionnaire 2 item (PHQ-2) [Reported] [facility] 03-06-2025 Patient Health Quest ionnaire 2 item (PHQ-2) [Reported] [facility] 03-06-2025 Total score [AUDIT-C] 0 03/06/20 6:32 AM EDT Wallyt, Generic [facility] 03-06-2025 How often to you hav e a drink containing alcohol? Never 03/06/2025 6:32 AM EDT Mychart, Generic Never [facility] 03-06-2025 Functional status Patient does n ot drink 03/06/2025 6:32 AM EDT Mychart, Generic Patient does not drink [facility] 03-06-2025 How often do you hav e 6 or more drinks on 1 occasion? Never 03/06/2025 6:32 AM EDT Mychart, Generic Never [facility] 09-14-2023 Functional Status N/A [facility] Clinical Notes 05-01-2023 to 07-10-2025 Telephone Encounter - ALVARADO Ramos - 07/10/2025 1:15 PM EDTTelephone Encounter - ALVARADO Ramos - 07/10/2025 1:15 PM EDTTelephone Encounter - ALVARADO Ramos - 07/05/2025 9:37 AM EDT Note Date & Type Note Facility 07-10-2025 Telephone encounter Note OARRS reviewed, Rx sent into patient's pharmacy. [facility] 07-10-2025 Miscellaneous Notes OARRS reviewed, Rx sent into patient's pharmacy. documented in this encounter [facility] 07-05-2025 Telephone encounter Note OARRS reviewed, Rx sent into patient's pharmacy. [facility] 07-05-2025 Miscellaneous Notes OARRS reviewed, Rx sent into patient's pharmacy. documented in this encounter [facility] 06-29-2025 Telephone encounter Note OARRS reviewed, Rx sent into patient's pharmacy. [facility] 06-29-2025 Miscellaneous Notes OARRS reviewed, Rx sent into patient's pharmacy. documented in this encounter [facility] 06-15-2025 Telephone encounter Note OARRS reviewed, Rx sent into patient's pharmacy. [facility] 06-15-2025 Miscellaneous Notes OARRS reviewed, Rx sent into patient's pharmacy. OV 05/07/25 RF 04/23/25 documented in this encounter [facility] 06-15-2025 Telephone encounter Note OV 05/07/25 RF 04/23/25 [facility] 06-08-2025 History of Present illness Narrative Images from the original note were not included. HPI Follow-up Additional comments: Controlled meds Last edited by Rosita Fraser LPN on 06/08/2025 9:13 AM. Subjective Patient ID: Maranda Davis is a 55 y.o. female who presents for Follow-up (Controlled meds) and Depression. Depression Patient complains of depression. She complains of depressed mood. Symptoms have been gradually improving since that time. Patient denies impaired memory, suicidal attempt, suicidal thoughts with specific plan, suicidal thoughts without plan, and weight gain. Family history significant for no psychiatric illness. Previous treatment includes medication. She complains of the following side effects from the treatment: decreased appetite. Still has some trouble focusing and thoughts racing, things get stuck in her head. States 1-2 days a week she will wake up nauseated, has some loose stools. Does take probiotics. New heartburn medication has been helpful. Does not think taking the Furosemide twice a day helps. July 24 getting a breast reduction. Pain Management recommended it, insurance approved it. Dr. Saeed will be doing it. Current Outpatient Medications on File Prior to Visit Medication Sig Dispense Refill Brexpiprazole (Rexulti) 0.5 MG tablet Take 0.5 mg by mouth Daily 28 tablet 3 celecoxib (CeleBREX) 200 MG capsule TAKE 1 CAPSULE BY MOUTH TWICE A DAY NEEDED FOR PAIN clonazePAM (KlonoPIN) 1 MG tablet TAKE 1 TABLET BY MOUTH AT BEDTIME 30 tablet 0 Dextromethorphan-buPROPion ER (Auvelity) 45-105 MG tablet controlled-release Take 1 tablet by mouth in the morning and 1 tablet in the evening. 180 tablet 3 estradiol (Vivelle-DOT) 0.1 MG/24HR Place 1 patch over 96 hours on the skin 2 (two) times a week 24 patch 3 lidocaine (Lidoderm) 5 % patch APPLY 1 PATCH TO SKIN ONCE A DAY NEEDED FOR PAIN modafinil (Provigil) 200 MG tablet Take 1 tablet (200 mg) by mouth in the morning. 30 tablet 0 oxybutynin XL (Ditropan-XL) 15 MG 24 hr tablet Take 15 mg by mouth Daily pantoprazole (ProtoNix) 40 MG EC tablet Take 1 tablet (40 mg) by mouth in the morning. Do not crush, chew, or split. 90 tablet 3 Potassium Gluconate ER 595 MG tablet controlled-release Take by mouth Daily pregabalin (Lyrica) 200 MG capsule TAKE 1 CAPSULE IN THE MORNING, 1 CAPSULE IN THE EVENING, AND 1 CAPSULE BEFORE BEDTIME. 90 capsule 0 tiZANidine (Zanaflex) 4 MG tablet Take 4 mg by mouth 3 (three) times a day as needed for muscle spasms traMADol (Ultram) 50 MG tablet Take 1 tablet (50 mg) by mouth every 6 (six) hours if needed for severe pain 120 tablet 0 traZODone (Desyrel) 150 MG tablet Take 1 tablet (150 mg) by mouth at bedtime 30 tablet 3 traZODone (Desyrel) 50 MG tablet Take 1 tablet (50 mg) by mouth as needed at bedtime for sleep 30 tablet 0 [DISCONTINUED] furosemide (Lasix) 40 MG tablet TAKE 1 TABLET (40 MG) BY MOUTH IN THE MORNING AND AT BEDTIME 60 tablet 3 [DISCONTINUED] modafinil (Provigil) 200 MG tablet Take 1 tablet (200 mg) by mouth in the morning. 30 tablet 0 [DISCONTINUED] oxybutynin XL (Ditropan-XL) 5 MG 24 hr tablet Take 5 mg by mouth Daily Do not crush, chew, or split. No current facility-administered medications on file prior to visit. I have reviewed and reconciled the history and medication list with the patient today. Allergies Allergen Reactions Cymbalta [Duloxetine Hcl] Other Excessive sweating Hydromorphone Other Reaction(s): Unknown Social History Tobacco Use Smoking status: Former Current packs/day: 0.00 Average packs/day: 1.5 packs/day for 31.7 years (47.6 ttl pk-yrs) Types: Cigarettes Start date: 01/27/1983 Quit date: 2014 Years since quittin.6 Smokeless tobacco: Former Tobacco comments: Started at age 13 Vaping Use Vaping status: Never Used Substance Use Topics Alcohol use: Not Currently Comment: Caffeine intake: 2-3 cups per day coffee Drug use: Never Family History Problem Relation Name Age of Onset Scoliosis Mother Ashlyn Bajwa Other (epilepsy) Father Regino Yates Heart disease Father Regino Yates Clotting disorder Father Regino Yates Hearing loss Father Regino Yates COPD Father Regino Blystamalia Arthritis Father Regino Blystamalia Fibromyalgia Sister Other (DDD) Sister No Known Problems Brother No Known Problems Daughter No Known Problems Son Colon cancer Paternal Grandmother Vijaya Colon cancer Maternal Grandfather Olvin Past Medical History: Diagnosis Date Allergic rhinitis cause unspecified Arthritis 2010 Back pain 2010 Blood in urine Bunion Removed 2020 Cholelithiasis 2013 Chronic back pain 2011 Chronic fatigue 2003 Colitis 2016 Colitis 2013 DM (diabetes mellitus) ([facility]) 2012 Diabetes mellitus, type 2 without comp Melissa Oh infection 2011 Esophageal reflux Fibrocystic breast Fibromyalgia 1993 Gestational diabetes ([facility]) 2005 History of Doppler ultrasound 07/07/2021 Venous Doppler was negative History of Holter monitoring 01/28/2019 NSR Lumbosacral disc disease 10 years Lupus Lyme disease 2014 Lyme Disease(2013) +strep + mycoplasma Mucocele, buccal ANJU on CPAP Spinal stenosis 2010 Spondylolisthesis 2009 Tear of meniscus of knee 2021 Trigger finger 2014 Past Surgical History: Procedure Laterality Date BACK SURGERY 12/26/2014 L3-S1 Dr. Correa BACK SURGERY 02/2019 Dr. Silva with Repeat back Surgery, Cage and Stabilization BUNIONECTOMY SECTION, LOW TRANSVERSE 2006 CHOLECYSTECTOMY 2013 CYSTOSCOPY 2013 EGD 05/2014 EGD/colonoscopy HARDWARE REMOVAL HERNIA REPAIR inguinal HYSTERECTOMY 2010 LAVH/ BSO KNEE SURGERY 10/08/2021 Arthroscopic partial medial meniscectomy right knee, arthroscopic abrasion chondroplasty [facility] COLON CANCER SCREEN 06/09/2022 Neg LUMBAR DISCECTOMY 2015 LUMBAR FUSION 11/18/2016 L1-L2 Dr. silva OTHER SURGICAL HISTORY Back Injections, Back pain OTHER SURGICAL HISTORY 09/2015 Placement of morphine pump OTHER SURGICAL HISTORY 2005 Tubal reversal-[facility] OTHER SURGICAL HISTORY Elective AB - age 17 SPINAL CORD STIMULATOR IMPLANT 2013 Stimulator implant-Back pain-removed 2017 SPINAL FUSION 2011 TONSILLECTOMY TOTAL HIP ARTHROPLASTY Left 05/13/2021 Dr. Silva TOTAL KNEE ARTHROPLASTY Right 12/01/2023 Dr Calvert TRIGGER FINGER RELEASE Right 10/18/[address] Calvert Visit Vitals BP 108/66 Pulse 56 Ht 5' 10 Wt 197 lb LMP (LMP Unknown) Comment: Hysterectomy 2010 SpO2 95% BMI 28.27 kg/m OB Status Hysterectomy Smoking Status Former BSA 2.1 m Review of Systems Constitutional: Positive for appetite change (Decreased). Negative for chills, fatigue and fever. Respiratory: Negative for cough, shortness of breath and wheezing. Cardiovascular: Negative for chest pain, palpitations and leg swelling. Gastrointestinal: Negative for abdominal pain, constipation, diarrhea, nausea and vomiting. Skin: Negative for rash. Psychiatric/Behavioral: Racing thoughts Objective Physical Exam Constitutional: General: She is not in acute distress. Appearance: Normal appearance. She is well-developed. HENT: Head: Normocephalic and atraumatic. Eyes: General: No scleral icterus. Conjunctiva/sclera: Conjunctivae normal. Cardiovascular: Rate and Rhythm: Regular rhythm. Heart sounds: Normal heart sounds. No murmur heard. Pulmonary: Effort: Pulmonary effort is normal. No respiratory distress. Breath sounds: Normal breath sounds. No wheezing, rhonchi or rales. Musculoskeletal: Right lower le+ Edema present. Left lower le+ Edema present. Comments: Non-pitting edema Skin: General: Skin is warm and dry. Neurological: General: No focal deficit present. Mental Status: She is alert and oriented to person, place, and time. Psychiatric: Mood and Affect: Mood normal. Affect is flat (Mildly). Behavior: Behavior normal. Comments: Smiled intermittently Assessment/Plan Diagnoses and all orders for this visit: Edema, unspecified type - furosemide (Lasix) 40 MG tablet; Take 1 tablet (40 mg) by mouth Daily Pt did not perceive benefit from increased dosage of Lasix. Will reducing dosing to once a day. Elevate legs prn. Will continue to monitor. Mild episode of recurrent major depressive disorder - Brexpiprazole (Rexulti) 0.5 MG tablet; Take 0.25 mg by mouth Daily Will decrease the dose of the Rexulti to 0.25 mg daily. She does feel that her racing thoughts were worse with the Rexulti was added. Now that her depression is improved with the Auvelity, will see if the Rexulti is still needed. If her depression worsens or the racing thoughts do not improved with the decreased dosage of Rexulti, she could resume the 0.5 mg dose. Otherwise, goal will be to see if she can be weaned off of the Rexulti. This would decrease risk of potential s/e or drug to drug interactions. Follow up in about 3 months (around 09/08/2025) for Wellness. documented in this encounter [facility] 06-04-2025 Telephone encounter Note Modafinil already sent [facility] 06-04-2025 Miscellaneous Notes Modafinil already sent documented in this encounter [facility] 06-04-2025 Telephone encounter Note OARRS reviewed, Rx sent into patient's pharmacy. [facility] 06-04-2025 Miscellaneous Notes OARRS reviewed, Rx sent into patient's pharmacy. documented in this encounter [facility] 05-29-2025 History of Present illness Narrative Referring Provider: Self, Self Reason for Consultation: Maranda Davis is a 55 y.o. female Patient presents for Chief Complaint Patient presents with Breast Reduction Consult . Vitals: 05/29/25 1301 Resp: 16 No notes on file General Examination General Appearance: comfortable, looks well, no acute distress. Head: Normocephalic. Cranial nerves grossly intact. Neck/Thyroid: supple. Skin: Warm and dry. Lungs: Non labored respirations. Abdomen: soft, nontender, nondistended. All pertinent labs, imaging, and testing were personally reviewed by me on 05/29/2025. Visit Summary HPI: Presents today for discussion and evaluation for breast reduction surgery. Her current bra cup size is triple D. She has been wearing this bra for multiple years. She has been considering surgical breast reduction for due to significant problems with upper back and shoulder pain. She has tried conservative measures such as supportive bras, heat and ice and massage. The supportive measures have been ineffective. Patient complains of the following symptoms that she feels are related to the size, weight and position of her breasts on her frame: Rashes under breasts that are partially controlled with OTC and prescription medicines. She also uses extra hygiene to help control this. Complains of pain in her upper back and shoulders She has difficulty finding clothes and bras She has tried physical therapy and surgery to improve these symptoms with only minimal relief. She denies any breast issues including masses or discharge. Her last mammogram was approximately a year ago . Examination: BREASTS: no masses palpable bilaterally. Right breast: Sternal notch to nipple 36 cm. Nipple to IMF 20 cm. Left breast: Sternal notch to nipple 36 cm. Nipple to IMF 19 cm.. Assessment: Assessment: Macromastia - N62 (Primary) Pain in thoracic spine - M54.6 Plan: Treatment: Macromastia Notes: The patient would likely benefit from bilateral breast reduction. I approximate 400-600 grams of removal from each side. The patient was explained that her BMI should be 30 or below prior to proceeding to minimize her perioperative risk. documented in this encounter [facility] 05-28-2025 History of Present illness Narrative Images from the original note were not included. HISTORY OF PRESENT ILLNESS: EST PT Maranda Davis is an 55 y.o. @ female. EST PT; MOST RECENT VISIT WITH [facility]- FLARE UP RT KNEE PAIN- S/P RT TKA 12/01/[address] CALVERT XRAY RT KNEE TODAY EPIC 05/28/25 HX PT [facility] P/O NO MDP C/O PAIN MEDIAL AND LATERAL KNEE WITH AMBULATING- +STIFFNESS/TIGHTNESS- DOES HEP- DENIES INSTABILITY- +MOTRIN PRN 1 year s/p RT TKA 12/01/23. Walking well unassisted. Denies pain. States she gets stiffness just above her knee. Uses a muscle rub. No pain meds. Denies giving out. Denies any other issues. States her knee is better now than it was before sx. Pleased with outcome. ALLERGIES: Allergies Allergen Reactions Cymbalta [Duloxetine Hcl] Other Excessive sweating Hydromorphone Other Reaction(s): Unknown HOME MEDICATIONS: Current Outpatient Medications Medication Instructions celecoxib (CeleBREX) 200 MG capsule TAKE 1 CAPSULE BY MOUTH TWICE A DAY NEEDED FOR PAIN clonazePAM (KLONOPIN) 1 mg, Oral, Nightly Dextromethorphan-buPROPion ER (Auvelity) 45-105 MG tablet controlled-release 1 tablet, Oral, Twice a day (morning and mid-day) estradiol (Vivelle-DOT) 0.1 MG/24HR 1 patch, Transdermal, 2 times weekly furosemide (Lasix) 40 MG tablet TAKE 1 TABLET (40 MG) BY MOUTH IN THE MORNING AND AT BEDTIME lidocaine (Lidoderm) 5 % patch APPLY 1 PATCH TO SKIN ONCE A DAY NEEDED FOR PAIN modafinil (PROVIGIL) 200 mg, Oral, Every morning oxybutynin XL (DITROPAN-XL) 5 mg, Daily pantoprazole (PROTONIX) 40 mg, Oral, Daily RT, Do not crush, chew, or split. Potassium Gluconate ER 595 MG tablet controlled-release Daily RT pregabalin (Lyrica) 200 MG capsule TAKE 1 CAPSULE IN THE MORNING, 1 CAPSULE IN THE EVENING, AND 1 CAPSULE BEFORE BEDTIME. Rexulti 0.5 mg, Oral, Daily tiZANidine (ZANAFLEX) 4 mg, 3 times daily PRN traMADol (ULTRAM) 50 mg, Oral, Every 6 hours PRN traZODone (DESYREL) 150 mg, Oral, Nightly traZODone (DESYREL) 50 mg, Oral, Nightly PRN PHYSICAL EXAM: Right Knee Exam Tenderness The patient is experiencing no tenderness. Range of Motion Right knee extension: 5. Right knee flexion: 115. Tests Varus: negative Valgus: negative Other Scars: present Sensation: normal Pulse: present Swelling: none Vitals: There is no height or weight on file to calculate BMI. Tobacco Use: Medium Risk (05/28/2025) Patient History Smoking Tobacco Use: Former Smokeless Tobacco Use: Never Passive Exposure: Not on file Alcohol Use: Not At Risk (03/06/2025) AUDIT-C Frequency of Alcohol Consumption: Never Average Number of Drinks: Patient does not drink Frequency of Binge Drinking: Never IMAGING: Procedures Orders Placed This Encounter Procedures XR knee 1 or 2 views right Is the patient ?: No Reason for exam:: PAIN ASSESSMENT: ICD-10-CM 1. Status post total right knee replacement Z96.651 2. Acute pain of right knee M25.561 XR knee 1 or 2 views right PLAN: I reviewed xray with patient which showed a stable RT TKA. She states she does get stiffness in her knee but her ROM is acceptable. I recommend she work on stretching with HEP. She may use tylenol/ibuprofen for breakthrough pain and follow up in 1 year for Rck and xray. Questions answered in laymen terms at the bedside. The diagnosis, home exercise plan and any ongoing restrictions/ recommendations reviewed. If unable to be reached in office, I recommend evaluation at nearest Emergency Room if any symptoms worsened or new symptoms develop for requiring urgent evaluation. documented in this encounter [facility] 05-18-2025 Telephone encounter Note OARRS reviewed, Rx sent into patient's pharmacy. [facility] 05-18-2025 Miscellaneous Notes OARRS reviewed, Rx sent into patient's pharmacy. documented in this encounter [facility] 05-07-2025 History of Present illness Narrative Images from the original note were not included. HPI Med Refill Additional comments: Modafinil Last edited by Carla Narayan LPN on 05/07/2025 1:58 PM. Subjective Patient ID: Maranda Davis is a 55 y.o. female who presents for diabetes. Maranda is present today for follow up diabetes. Denies foot ulcers, hypoglycemia. Admits tingling/numbness in extremities. Does not check BS's at home. Currently not on any medications. States for the past few weeks she has some stomach pain, then has loose stools. Happens about every three days. Tums does help with the stomach pain. Still takes Omeprazole. Still feels very [place]. Gets snippy with people. Her mind doesn't want to shut off. Over the past 2 weeks, how often have you been bothered by any of the following problems? Little interest or pleasure in doing things: Not at all (currently on medication) Feeling down, depressed, or hopeless: Not at all (currently on medication) Patient Health Questionnaire-2 Score: 0 Current Outpatient Medications on File Prior to Visit Medication Sig Dispense Refill Brexpiprazole (Rexulti) 0.5 MG tablet Take 0.5 mg by mouth Daily 28 tablet 3 celecoxib (CeleBREX) 200 MG capsule TAKE 1 CAPSULE BY MOUTH TWICE A DAY NEEDED FOR PAIN clonazePAM (KlonoPIN) 1 MG tablet TAKE 1 TABLET BY MOUTH AT BEDTIME 30 tablet 0 estradiol (Vivelle-DOT) 0.1 MG/24HR Place 1 patch over 96 hours on the skin 2 (two) times a week 24 patch 3 furosemide (Lasix) 40 MG tablet TAKE 1 TABLET (40 MG) BY MOUTH IN THE MORNING AND AT BEDTIME 60 tablet 3 lidocaine (Lidoderm) 5 % patch APPLY 1 PATCH TO SKIN ONCE A DAY NEEDED FOR PAIN oxybutynin XL (Ditropan-XL) 5 MG 24 hr tablet Take 5 mg by mouth Daily Do not crush, chew, or split. Potassium Gluconate ER 595 MG tablet controlled-release Take by mouth Daily pregabalin (Lyrica) 200 MG capsule Take 1 capsule (200 mg) by mouth in the morning and 1 capsule (200 mg) before bedtime. tiZANidine (Zanaflex) 4 MG tablet Take 4 mg by mouth 3 (three) times a day as needed for muscle spasms traMADol (Ultram) 50 MG tablet Take 1 tablet (50 mg) by mouth every 6 (six) hours if needed for severe pain 120 tablet 0 traZODone (Desyrel) 150 MG tablet Take 1 tablet (150 mg) by mouth at bedtime 30 tablet 3 traZODone (Desyrel) 50 MG tablet Take 1 tablet (50 mg) by mouth as needed at bedtime for sleep 30 tablet 0 [DISCONTINUED] buPROPion SR (Wellbutrin SR) 200 MG 12 hr tablet Take 1 tablet (200 mg) by mouth in the morning and in the evening Do not crush, chew, or split. 180 tablet 3 [DISCONTINUED] clonazePAM (KlonoPIN) 0.5 MG tablet Take 1 tablet (0.5 mg) by mouth at bedtime [DISCONTINUED] modafinil (Provigil) 200 MG tablet Take 1 tablet (200 mg) by mouth in the morning. 30 tablet 0 [DISCONTINUED] omeprazole (PriLOSEC) [address] capsule Take 1 capsule (40 mg) by mouth in the morning. Take before meals. Do not crush or chew. Take 30 minutes prior to breakfast meal.. 100 capsule 3 No current facility-administered medications on file prior to visit. I have reviewed and reconciled the history and medication list with the patient today. Allergies Allergen Reactions Cymbalta [Duloxetine Hcl] Other Excessive sweating Hydromorphone Other Reaction(s): Unknown Social History Tobacco Use Smoking status: Former Current packs/day: 0.00 Types: Cigarettes Quit date: 2014 Years since quittin.5 Smokeless tobacco: Never Vaping Use Vaping status: Never Used Substance Use Topics Alcohol use: Not Currently Comment: Caffeine intake: 2-3 cups per day coffee Drug use: Never Family History Problem Relation Name Age of Onset Scoliosis Mother Ashlyn Bajwa Other (epilepsy) Father Regino Yates Heart disease Father Regino Yates Clotting disorder Father Regino Yates Fibromyalgia Sister Other (DDD) Sister No Known Problems Brother No Known Problems Daughter No Known Problems Son Colon cancer Paternal Grandmother Vijaya Colon cancer Maternal Grandfather Olvin Past Medical History: Diagnosis Date Allergic rhinitis cause unspecified Arthritis 2010 Back pain 2010 Blood in urine Bunion Removed 2020 Cholelithiasis 2013 Chronic back pain 2010 Chronic fatigue 2003 Colitis 2016 Colitis 2012 DM (diabetes mellitus) ([facility]) 2011 Diabetes mellitus, type 2 without comp Melissa Oh infection 2010 Esophageal reflux Fibrocystic breast Fibromyalgia 1992 Gestational diabetes ([facility]) 2005 History of Doppler ultrasound 07/07/2021 Venous Doppler was negative History of Holter monitoring 01/28/2019 NSR Lumbosacral disc disease 10 years Lupus Lyme disease 2013 Lyme Disease(2013) +strep + mycoplasma Mucocele, buccal ANJU on CPAP Spinal stenosis 2010 Spondylolisthesis 2010 Tear of meniscus of knee 2021 Trigger finger 2014 Past Surgical History: Procedure Laterality Date BACK SURGERY 12/26/2014 L3-S1 Dr. Correa BACK SURGERY 02/2019 Dr. Silva with Repeat back Surgery, Cage and Stabilization BUNIONECTOMY SECTION, LOW TRANSVERSE 2006 CHOLECYSTECTOMY 2013 CYSTOSCOPY 2013 EGD 05/2014 EGD/colonoscopy HARDWARE REMOVAL HERNIA REPAIR inguinal HYSTERECTOMY 2010 LAVH/ BSO KNEE SURGERY 10/08/2021 Arthroscopic partial medial meniscectomy right knee, arthroscopic abrasion chondroplasty [facility] COLON CANCER SCREEN 06/09/2022 Neg LUMBAR DISCECTOMY 2015 LUMBAR FUSION 11/18/2016 L1-L2 Dr. silva OTHER [...] thumb release Dr. Calvert Visit Vitals BP 112/72 Pulse 69 Resp 16 Ht 5' 10 Wt 196 lb 12.8 oz LMP (LMP Unknown) Comment: Hysterectomy 2010 SpO2 97% BMI 28.24 kg/m OB Status Hysterectomy Smoking Status Former BSA 2.1 m Review of Systems Constitutional: Negative for chills, fatigue and fever. Respiratory: Negative for cough, shortness of breath and wheezing. Cardiovascular: Negative for chest pain, palpitations and leg swelling. Gastrointestinal: Negative for abdominal pain, constipation, diarrhea, nausea and vomiting. Skin: Negative for rash. Psychiatric/Behavioral: Positive for agitation and dysphoric mood ([place]). Objective Physical Exam Constitutional: General: She is not in acute distress. Appearance: Normal appearance. She is well-developed. HENT: Head: Normocephalic and atraumatic. Eyes: General: No scleral icterus. Conjunctiva/sclera: Conjunctivae normal. Cardiovascular: Rate and Rhythm: Normal rate and regular rhythm. Heart sounds: Normal heart sounds. No murmur heard. Pulmonary: Effort: Pulmonary effort is normal. No respiratory distress. Breath sounds: Normal breath sounds. No wheezing, rhonchi or rales. Musculoskeletal: Right lower le+ Edema present. Left lower le+ Edema present. Skin: General: Skin is warm and dry. Neurological: General: No focal deficit present. Mental Status: She is alert and oriented to person, place, and time. Psychiatric: Attention and Perception: Attention normal. Mood and Affect: Mood is depressed (Minimal). Speech: Speech normal. Behavior: Behavior normal. Thought Content: Thought content normal. Cognition and Memory: Cognition normal. Judgment: Judgment normal. Office Visit on 05/07/2025 Component Date Value Ref Range Status Hemoglobin A1C 05/07/2025 5.7 Final Assessment/Plan Diagnoses and all orders for this visit: Type 2 diabetes mellitus with diabetic polyneuropathy, without long-term current use of insulin (HCC) - POCT Glycated hemoglobin, total Advised pt that her HgbA1c remains normal at 5.7. She will continue her current medications. Will plan on rechecking her HgbA1c next in 6 months. Obstructive sleep apnea - modafinil (Provigil) 200 MG tablet; Take 1 tablet (200 mg) by mouth in the morning. Medication choice and dosage is appropriate for patient's current medical conditions. Patient will continue to be required to be seen in our office at least every three months for monitoring. At each follow up visit I will reassess the patient's need for the medication. Patient is to have this medication prescribed only through this office. Failure to follow the rules and regulations will result in tapering and discontinuation of medications if applicable. Patient verbalized understanding. OARRS Report was reviewed for this patient. Generalized anxiety disorder Currently using Mild episode of recurrent major depressive disorder - Dextromethorphan-buPROPion ER (Auvelity) 45-105 MG tablet controlled-release; Take 1 tablet by mouth in the morning. Will have patient start Auvelity in the morning and Bupropion in the afternoon for three days, then change to Auvelity twice a day. #60 samples provided for patient and a new Rx was sent in for her to her pharmacy. She can contact office with any concerns regarding the change of medication. Goal will be to possibly get her off of one of the other medications if does well with Auvelity. Gastroesophageal reflux disease without esophagitis - pantoprazole (ProtoNix) 40 MG EC tablet; Take 1 tablet (40 mg) by mouth in the morning. Do not crush, chew, or split. Will change from Omeprazole to Pantoprazole to see if this is more effective for her stomach. Encouraged probiotic daily. Overweight (BMI 25.0-29.9) Has lost 12 pounds since her last appointment. Aim for continued healthy diet, stay active. Follow up for Appointment As Scheduled. documented in this encounter [facility] 04-07-2025 Telephone encounter Note Modafinil sent yesterday. [facility] 04-07-2025 Miscellaneous Notes Modafinil sent yesterday. documented in this encounter [facility] 04-06-2025 Telephone encounter Note OARRS reviewed, Rx sent into patient's pharmacy. [facility] 04-06-2025 Miscellaneous Notes OARRS reviewed, Rx sent into patient's pharmacy. documented in this encounter [facility] 03-12-2025 Telephone encounter Note Modafanil already sent [facility] 03-12-2025 Miscellaneous Notes Modafanil already sent documented in this encounter [facility] 03-06-2025 History of Present illness Narrative Images from the original note were not included. [facility] Med Refill Additional comments: Trazodone, Modafinil Last edited by ALVARADO Ramos on 03/06/2025 9:12 AM. Subjective Patient ID: Maranda Davis is a 55 y.o. female who presents for ANJU. Maranda is present today for follow up ANJU. She is currently on Modafinil and is working well for her. For depression she has been taking Wellburtrin and Rexulti and can only take 0.5 mg Rexulti d/t it was making her not be able to sleep. Currently taking the Trazodone 150 mg with 0.5 tablet of the Klonopin and she is sleeping well. She currently on Furosemide 40 mg BID and it is not working. She still has swelling in bilateral ankles, 1+ edema. She does elevate them as much as she can and she does have compression stockings that she just wears at night sometimes when they are really swollen. She admits that she will get going in the morning, working around the house, and doesn't stop til later in the day. Regarding Fibromyalgia, Lyrica does not seem to be working. Has discussed with Dr. Worley and he advised there was nothing else that could be done she is on max dose of Lyrica. Does not always take all 3 doses, sometimes just twice a day. Takes the Tizanidine is only occasionally for muscle spasms in her neck that cause migraines. Gets Hydromorphone and Baclofen in her pain pump for her back. Current Outpatient Medications on File Prior to Visit Medication Sig Dispense Refill pregabalin (Lyrica) 200 MG capsule TAKE 1 CAPSULE BY MOUTH IN THE MORNING AND 1 CAPSULE IN THE EVENING AND 1 CAPSULE BEFORE BEDTIME. 90 capsule 0 [DISCONTINUED] Brexpiprazole (Rexulti) 1 MG tablet Take 1 mg by mouth Daily (Patient taking differently: Take 0.5 mg by mouth Daily) 90 tablet 1 [DISCONTINUED] clonazePAM (KlonoPIN) 1 MG tablet Take 1 tablet (1 mg) by mouth at bedtime (Patient taking differently: Take 0.5 mg by mouth at bedtime) 30 tablet 0 buPROPion SR (Wellbutrin SR) 200 MG 12 hr tablet Take 1 tablet (200 mg) by mouth in the morning and in the evening Do not crush, chew, or split. 180 tablet 3 celecoxib (CeleBREX) 200 MG capsule TAKE 1 CAPSULE BY MOUTH TWICE A DAY NEEDED FOR PAIN estradiol (Vivelle-DOT) 0.1 MG/24HR Place 1 patch over 96 hours on the skin 2 (two) times a week 24 patch 3 furosemide (Lasix) 40 MG tablet TAKE 1 TABLET (40 MG) BY MOUTH IN THE MORNING AND AT BEDTIME 60 tablet 3 lidocaine (Lidoderm) 5 % patch APPLY 1 PATCH TO SKIN ONCE A DAY NEEDED FOR PAIN modafinil (Provigil) 200 MG tablet Take 1 tablet (200 mg) by mouth in the morning. 30 tablet 0 omeprazole (PriLOSEC) [address] capsule Take 1 capsule (40 mg) by mouth in the morning. Take before meals. Do not crush or chew. Take 30 minutes prior to breakfast meal.. 100 capsule 3 oxybutynin XL (Ditropan-XL) 5 MG 24 hr tablet Take 5 mg by mouth Daily Do not crush, chew, or split. Potassium Gluconate ER 595 MG tablet controlled-release Take by mouth Daily tiZANidine (Zanaflex) 4 MG tablet Take 4 mg by mouth 3 (three) times a day as needed for muscle spasms traMADol (Ultram) 50 MG tablet TAKE 1 TABLET (50 MG) BY MOUTH EVERY 6 HOURS NEEDED FOR SEVERE PAIN 120 tablet 0 traZODone (Desyrel) 150 MG tablet Take 1 tablet (150 mg) by mouth at bedtime [DISCONTINUED] amoxicillin (Amoxil) 500 MG capsule TAKE 4 CAPSULES BY MOUTH 30 MINUTES PRIOR TO NEXT DENTAL VISIT No current facility-administered medications on file prior to visit. I have reviewed and reconciled the history and medication list with the patient today. Allergies Allergen Reactions Cymbalta [Duloxetine Hcl] Other Excessive sweating Hydromorphone Other Reaction(s): Unknown Social History Tobacco Use Smoking status: Former Current packs/day: 0.00 Types: Cigarettes Quit date: 2014 Years since quittin.4 Smokeless tobacco: Never Vaping Use Vaping status: Never Used Substance Use Topics Alcohol use: Not Currently Comment: Caffeine intake: 2-3 cups per day coffee Drug use: Never Family History Problem Relation Name Age of Onset Scoliosis Mother Ashlyn Bajwa Other (epilepsy) Father Regino Yates Heart disease Father Regino Yates Clotting disorder Father Regino Yates Fibromyalgia Sister Other (DDD) Sister No Known Problems Brother No Known Problems Daughter No Known Problems Son Colon cancer Paternal Grandmother Vijaya Colon cancer Maternal Grandfather Olvin Past Medical History: Diagnosis Date Allergic rhinitis cause unspecified Arthritis 2010 Back pain 2010 Blood in urine Bunion Removed 2020 Cholelithiasis 2013 Chronic back pain 2011 Chronic fatigue 2003 Colitis 2016 Colitis 2012 DM (diabetes mellitus) (CMS/[facility]) 2012 Diabetes mellitus, type 2 without comp Melissa Oh infection 2011 Esophageal reflux Fibrocystic breast Fibromyalgia 1993 Gestational diabetes 2006 History of Doppler ultrasound 07/07/2021 Venous Doppler was negative History of Holter monitoring 01/28/2019 NSR Lumbosacral disc disease 10 years Lupus Lyme disease 2013 Lyme Disease(2013) +strep + mycoplasma Mucocele, buccal ANJU on CPAP Spinal stenosis 2010 Spondylolisthesis 2010 Tear of meniscus of knee 2021 Trigger finger 2014 Past Surgical History: Procedure Laterality Date BACK SURGERY 12/26/2014 L3-S1 Dr. Correa BACK SURGERY 02/2019 Dr. Silva with Repeat back Surgery, Cage and Stabilization BUNIONECTOMY SECTION, LOW TRANSVERSE 2006 CHOLECYSTECTOMY 2014 CYSTOSCOPY 2013 EGD 05/2014 EGD/colonoscopy HARDWARE REMOVAL HERNIA REPAIR inguinal HYSTERECTOMY 2010 LAVH/ BSO KNEE SURGERY 10/08/2021 Arthroscopic partial medial meniscectomy right knee, arthroscopic abrasion chondroplasty LAB [facility] COLON CANCER SCREEN 06/09/2022 Neg LUMBAR DISCECTOMY 2015 LUMBAR FUSION 11/18/2016 L1-L2 Dr. silva OTHER SURGICAL HISTORY Back Injections, Back pain OTHER SURGICAL HISTORY 09/2015 Placement of morphine pump OTHER SURGICAL HISTORY 2006 Tubal reversal-[facility] OTHER SURGICAL HISTORY Elective AB - age 17 SPINAL CORD STIMULATOR IMPLANT 2013 Stimulator implant-Back pain-removed 2017 SPINAL FUSION 2010 TONSILLECTOMY TOTAL HIP ARTHROPLASTY Left 05/13/2021 Dr. Silva TOTAL KNEE ARTHROPLASTY Right 12/01/2023 Dr Calvert TRIGGER FINGER RELEASE Right 10/18/[address] Calvert Visit Vitals BP 102/64 Pulse 59 Resp 16 Ht 5' 10 Wt 208 lb 9.6 oz LMP (LMP Unknown) Comment: Hysterectomy 2009 SpO2 94% BMI 29.93 kg/m OB Status Hysterectomy Smoking Status Former BSA 2.16 m Review of Systems Constitutional: Negative for chills, fatigue and fever. Respiratory: Negative for cough, shortness of breath and wheezing. Cardiovascular: Positive for leg swelling. Negative for chest pain and palpitations. Gastrointestinal: Negative for abdominal pain, constipation, diarrhea, nausea and vomiting. Musculoskeletal: Positive for myalgias. Skin: Negative for rash. Objective Physical Exam Constitutional: General: She is not in acute distress. Appearance: Normal appearance. She is well-developed. HENT: Head: Normocephalic and atraumatic. Eyes: General: No scleral icterus. Conjunctiva/sclera: Conjunctivae normal. Cardiovascular: Rate and Rhythm: Normal rate and regular rhythm. Heart sounds: Normal heart sounds. No murmur heard. Pulmonary: Effort: Pulmonary effort is normal. No respiratory distress. Breath sounds: Normal breath sounds. No wheezing, rhonchi or rales. Musculoskeletal: Right lower le+ Edema present. Left lower le+ Edema present. Skin: General: Skin is warm and dry. Neurological: General: No focal deficit present. Mental Status: She is alert and oriented to person, place, and time. Psychiatric: Attention and Perception: Attention normal. Mood and Affect: Mood is depressed (Minimal). Speech: Speech normal. Behavior: Behavior normal. Thought Content: Thought content normal. Cognition and Memory: Cognition normal. Judgment: Judgment normal. Assessment/Plan Diagnoses and all orders for this visit: Obstructive sleep apnea - modafinil (Provigil) 200 MG tablet; Take 1 tablet (200 mg) by mouth in the morning. OARRS reviewed, Rx sent into patient's pharmacy. Working well for patient. Will continue to monitor. Primary insomnia Patient is doing well with the Trazodone and 0.5 mg of Klonopin. Goal would be to eventually help pt wean off of the Klonopin. Will continue to monitor. Bilateral lower extremity edema Try decreasing furosemide to once a day to see if the swelling changes. Wear compression stockings during the day, off at night. Rest 5-10 minutes an hour and get her feet elevated. Fibromyalgia - traMADol (Ultram) 50 MG tablet; Take 1 tablet (50 mg) by mouth every 6 (six) hours if needed for severe pain She can continue the above as needed. She will try taking twice a day instead of once to see if the pain improves. She will take the Lyrica 2 times a day as three a day does not seem to help with her pain and increases risk of side effects. Generalized anxiety disorder (CMS/HCC) - clonazePAM (KlonoPIN) 0.5 MG tablet; Take 1 tablet (0.5 mg) by mouth at bedtime Stable at this time on current medications. Will continue to monitor. Mild episode of recurrent major depressive disorder (HCC) (CMS/HCC) - Brexpiprazole (Rexulti) 0.5 MG tablet; Take 0.5 mg by mouth Daily Doing better with the 0.5 mg dosage. Couldn't tolerate the 1 mg dosage. Follow up in about 3 months (around 06/06/2025) for Medication Follow Up. documented in this encounter [facility] 02-23-2025 History of Present illness Narrative Images from the original note were not included. Cody Urias, Obstetrics and Gynecology Maranda Davis 1970 02/23/25 [id number] Yearly Wellness Exam Chief Complaint Patient presents with Gynecologic Exam Pt presents for (rs) yearly. Denies breast,bowel,petroleum sampler problems. States she feels like she has to urinate and it will take awhile for her to be able to go, at other times she feels urgency. Denies any other sx. Visit Vitals BP 98/66 Wt 207 lb LMP (LMP Unknown) Comment: Hysterectomy 2009 BMI 29.70 kg/m OB Status Hysterectomy Smoking Status Former BSA 2.15 m History of Present Illness Current Outpatient Medications Medication Sig Dispense Refill amoxicillin (Amoxil) 500 MG capsule TAKE 4 CAPSULES BY MOUTH 30 MINUTES PRIOR TO NEXT DENTAL VISIT oxybutynin XL (Ditropan-XL) 5 MG 24 hr tablet Take 5 mg by mouth Daily Do not crush, chew, or split. pregabalin (Lyrica) 200 MG capsule TAKE 1 CAPSULE BY MOUTH IN THE MORNING AND 1 CAPSULE IN THE EVENING AND 1 CAPSULE BEFORE BEDTIME. 90 capsule 0 Brexpiprazole (Rexulti) 1 MG tablet Take 1 mg by mouth Daily 90 tablet 1 buPROPion SR (Wellbutrin SR) 200 MG 12 hr tablet Take 1 tablet (200 mg) by mouth in the morning and in the evening Do not crush, chew, or split. 180 tablet 3 celecoxib (CeleBREX) 200 MG capsule TAKE 1 CAPSULE BY MOUTH TWICE A DAY NEEDED FOR PAIN clonazePAM (KlonoPIN) 1 MG tablet Take 1 tablet (1 mg) by mouth at bedtime 30 tablet 0 [START ON 02/26/2025] estradiol (Vivelle-DOT) 0.1 MG/24HR Place 1 patch over 96 hours on the skin 2 (two) times a week 24 patch 3 furosemide (Lasix) 40 MG tablet TAKE 1 TABLET (40 MG) BY MOUTH IN THE MORNING AND AT BEDTIME 60 tablet 3 lidocaine (Lidoderm) 5 % patch APPLY 1 PATCH TO SKIN ONCE A DAY NEEDED FOR PAIN modafinil (Provigil) 200 MG tablet Take 1 tablet (200 mg) by mouth in the morning. 30 tablet 0 omeprazole (PriLOSEC) [address] capsule Take 1 capsule (40 mg) by mouth in the morning. Take before meals. Do not crush or chew. Take 30 minutes prior to breakfast meal.. 100 capsule 3 Potassium Gluconate ER 595 MG tablet controlled-release Take by mouth Daily tiZANidine (Zanaflex) 4 MG tablet Take 4 mg by mouth 3 (three) times a day as needed for muscle spasms traMADol (Ultram) 50 MG tablet TAKE 1 TABLET (50 MG) BY MOUTH EVERY 6 HOURS NEEDED FOR SEVERE PAIN 120 tablet 0 traZODone (Desyrel) 150 MG tablet Take 1 tablet (150 mg) by mouth at bedtime No current facility-administered medications for this visit. Allergies Allergen Reactions Cymbalta [Duloxetine Hcl] Other Excessive sweating Hydromorphone Other Reaction(s): Unknown Past Medical History: Diagnosis Date Allergic rhinitis cause unspecified Arthritis 2010 Back pain 2009 Blood in urine Bunion Removed 2020 Cholelithiasis 2013 Chronic back pain 2010 Chronic fatigue 2002 Colitis 2015 Colitis 2012 DM (diabetes mellitus) (CMS/[facility]) 2011 Diabetes mellitus, type 2 without comp Melissa Oh infection 2010 Esophageal reflux Fibrocystic breast Fibromyalgia 1993 Gestational diabetes 2006 History of Doppler ultrasound 07/07/2021 Venous Doppler was negative History of Holter monitoring 01/28/2019 NSR Lumbosacral disc disease 10 years Lupus Lyme disease 2013 Lyme Disease(2013) +strep + mycoplasma Mucocele, buccal ANJU on CPAP Spinal stenosis 2010 Spondylolisthesis 2009 Tear of meniscus of knee 2021 Trigger finger 2014 Past Surgical History: Procedure Laterality Date BACK SURGERY 12/26/2014 L3-S1 Dr. Correa BACK SURGERY 02/2019 Dr. Silva with Repeat back Surgery, Cage and Stabilization BUNIONECTOMY SECTION, LOW TRANSVERSE 2006 CHOLECYSTECTOMY 2013 CYSTOSCOPY 2013 EGD 05/2014 EGD/colonoscopy HARDWARE REMOVAL HERNIA REPAIR inguinal HYSTERECTOMY 2010 LAVH/ BSO KNEE SURGERY 10/08/2021 Arthroscopic partial medial meniscectomy right knee, arthroscopic abrasion chondroplasty LAB [facility] COLON CANCER SCREEN 06/09/2022 Neg LUMBAR DISCECTOMY 2015 LUMBAR FUSION 11/18/2016 L1-L2 Dr. silva OTHER SURGICAL HISTORY Back Injections, Back pain OTHER SURGICAL HISTORY 09/2015 Placement of morphine pump OTHER SURGICAL HISTORY 2005 Tubal reversal-[facility] OTHER SURGICAL HISTORY Elective AB - age 17 SPINAL CORD STIMULATOR IMPLANT 2013 Stimulator implant-Back pain-removed 2016 SPINAL FUSION 2010 TONSILLECTOMY TOTAL HIP ARTHROPLASTY Left 05/13/2021 Dr. Silva TOTAL KNEE ARTHROPLASTY Right 12/01/2023 Dr Calvert TRIGGER FINGER RELEASE Right 10/18/[address] Calvert OB History Para Term AB Living 3 1 3 SAB IAB Ectopic Multiple Live Births 0 1 3 # Outcome Date GA Lbr Khoi/2nd Weight Sex Type Anes PTL Lv 3 IAB 1987 2 1 Obstetric Comments Pap 01/01/21- Neg Mammogram 02/05/22- Neg Cologuard 05/2022- Neg LAVH/BSO 2009 ROS General: Denies fevers/chills Eyes: Denies vision changes ENT: Denies neck stiffness, neck mass Endocrine: Denies polydipsia and polyuria Respiratory: Denies shortness of breath Cardiovascular: Denies chest pain and palpitations Gastrointestinal: Denies changes in bowel habits, blood in stool, constipation and diarrhea. Hematology: Denies easy bruising. Women Only: Denies breast masses, skin changes, nipple discharge, abnormal bleeding, pelvic pain and dyspareunia Genitourinary: Denies dysuria, pelvic pain and nocturia Skin: Denies rashes/lesions Neurologic: Denies headaches, dizziness, syncope Psychiatric: Denies hallucinations, suicidal ideas EXAM GENERAL EXAMINATION: Alert, oriented, well developed, well nourished. HEAD: Normocephalic, atraumatic. EYES: MIKEY, sclera anicteric. EARS: No obvious hearing deficit. NECK/THYROID: Neck supple no cervical lymphadenopathy no thyromegaly. LYMPH NODES: No axillary, supraclavicular or inguinal adenopathy. SKIN: Warm and dry. No rashes HEART: Regular rate and rhythm. No murmur LUNGS: Clear to auscultation bilaterally. CHEST: Axillary nodes grossly normal. BREASTS: Large and pendulous, no dominant masses palpable bilaterally, no skin changes, nipple discharge, supra-clavicular or axillary adenopathy ABDOMEN: Soft, nontender, nondistended, no hernia or masses palpable. Her spinal stimulator is palpable under the skin on the right. There was no device erosion or signs of infection. BACK: No obvious scoliosis/kyphosis. FEMALE GENITOURINARY: EFG without sores/lesions, normal vaginal mucosa-no discharge, cervix and uterus surgically absent, no adnexal masses, cul-de-sac negative. Weak Kegel muscle strength. EXTREMITIES moderate lower extremity edema. NEUROLOGIC: Alert and oriented. PSYCH: Cooperative with exam. ICD-10-CM 1. Encounter for gynecological examination with abnormal finding Z01.411 2. Encounter for screening mammogram for malignant neoplasm of breast Z12.31 Bilateral screening mammogram with tomosynthesis 3. Vaginal atrophy N95.2 4. Hormone replacement therapy Z79.890 5. Special screening for malignant neoplasms, vagina Z12.72 PAP IG (IMAGE GUIDED) 6. Hot flashes due to menopause N95.1 estradiol (Vivelle-DOT) 0.1 MG/24HR 7. Urinary hesitancy R39.11 8. Urinary frequency R35.0 9. Colon cancer screening Z12.11 Cologuard colon cancer screening Advised pt to perform monthly self breast exams. Encouraged calcium and Vitamin D intake. She is due for a mammogram so an order was sent. A Pap was completed today. She will be due for another Cologuard in May so an order was sent for that as well. She has had no changes in bowel habits. She does complain of upper back pain which she attributes to her large pendulous breasts. She has seen Plastic surgery and there trying to get her approved for a breast reduction. She complains of sometimes having an urgency to urinate and another times being unable to go. She is taking oxybutynin. We discussed the possibility of urine retention but I do not feel it on exam and she denies an inability to empty completely. Many of her medicines can impact the bladder. She may need some advanced testing with urology if symptoms persist. She is doing well on the Vivelle patch so her prescription was refilled. She is going to continue to see me yearly. documented in this encounter [facility] 01-22-2025 Telephone encounter Note clonazePAM (KlonoPIN) 1 MG tablet [facility] 01-22-2025 Miscellaneous Notes clonazePAM (KlonoPIN) 1 MG tablet [facility] documented in this encounter [facility] 01-08-2025 Telephone encounter Note Trazodone and Modafinil sent. OARRS report generated and reviewed. [facility] 01-08-2025 Miscellaneous Notes Trazodone and Modafinil sent. OARRS report generated and reviewed. Maranda called requesting Refills. She states she does need her traZODone (Desyrel) 50 MG but the RX on file is not correct. She states Aminta had increased her dose to 2 tablets in the evening. She is also in need of a refill on her modafinil (Provigil) 200 MG . Both to go to [facility] in [place] documented in this encounter [facility] 01-08-2025 Telephone encounter Note Maranda called requesting Refills. She states she does need her traZODone (Desyrel) 50 MG but the RX on file is not correct. She states Aminta had increased her dose to 2 tablets in the evening. She is also in need of a refill on her modafinil (Provigil) 200 MG . Both to go to [facility] in [place] [facility] 01-02-2025 History of Present illness Narrative Upper back pain for possible breast reduction. Referring Provider: Oleg Saeed MD Reason for Consultation: Maranda Davis is a 54 y.o. female Patient presents for Chief Complaint Patient presents with New Patient . There were no vitals filed for this visit. Upper back pain for possible breast reduction. General Examination General Appearance: comfortable, looks well, no acute distress. Head: Normocephalic. Cranial nerves grossly intact. Neck/Thyroid: supple. Skin: Warm and dry. Lungs: Non labored respirations. Abdomen: soft, nontender, nondistended. All pertinent labs, imaging, and testing were personally reviewed by me on 01/02/2025. Visit Summary HPI: Presents today for discussion and evaluation for breast reduction surgery. Her current bra cup size is triple D. She has been wearing this bra for multiple years. She has been considering surgical breast reduction for due to significant problems with upper back and shoulder pain. She has tried conservative measures such as supportive bras, heat and ice and massage. The supportive measures have been ineffective. Patient complains of the following symptoms that she feels are related to the size, weight and position of her breasts on her frame: Rashes under breasts that are partially controlled with OTC and prescription medicines. She also uses extra hygiene to help control this. Complains of pain in her upper back and shoulders She has difficulty finding clothes and bras She has tried physical therapy and surgery to improve these symptoms with only minimal relief. She denies any breast issues including masses or discharge. Her last mammogram was approximately a year ago . Examination: BREASTS: no masses palpable bilaterally. Right breast: Sternal notch to nipple 36 cm. Nipple to IMF 20 cm. Left breast: Sternal notch to nipple 36 cm. Nipple to IMF 19 cm.. Assessment: Assessment: Macromastia - N62 (Primary) Pain in thoracic spine - M54.6 Plan: Treatment: Macromastia Notes: The patient would likely benefit from bilateral breast reduction. I approximate 400-600 grams of removal from each side. The patient was explained that her BMI should be 30 or below prior to proceeding to minimize her perioperative risk. documented in this encounter [facility] 12-06-2024 History of Present illness Narrative Images from the original note were not included. HPI Med Refill Additional comments: Modafinil Last edited by Carla Narayan LPN on 12/06/2024 10:22 AM. Subjective Patient ID: Maranda Davis is a 54 y.o. female who presents for Med Refill (Modafinil). Maranda is present today for evaluation of nausea. Admits she has had this since Wednesday, also has loose stools twice a day (has improved), fatigue, body aches, chills. She has been taking motion sickness meds OTC. The fatigue, nausea and headache just seem to be lingering. Has not had any Cymbalta since mid last week. States her mood did well coming off of it. Sweating has improved. Current Outpatient Medications on File Prior to Visit Medication Sig Dispense Refill pregabalin (Lyrica) 200 MG capsule TAKE 1 CAPSULE BY MOUTH IN THE MORNING AND 1 CAPSULE IN THE EVENING AND 1 CAPSULE BEFORE BEDTIME. 90 capsule 0 Brexpiprazole (Rexulti) 0.5 MG tablet Take 0.5 mg by mouth Daily 30 tablet 2 buPROPion SR (Wellbutrin SR) 200 MG 12 hr tablet Take 1 tablet (200 mg) by mouth in the morning and in the evening Do not crush, chew, or split. 180 tablet 3 celecoxib (CeleBREX) 200 MG capsule TAKE 1 CAPSULE BY MOUTH TWICE A DAY NEEDED FOR PAIN clonazePAM (KlonoPIN) 1 MG tablet Take 1 tablet (1 mg) by mouth at bedtime 30 tablet 0 estradiol (Vivelle-DOT) 0.1 MG/24HR Place 1 patch over 96 hours on the skin 2 (two) times a week 24 patch 3 furosemide (Lasix) 40 MG tablet TAKE 1 TABLET (40 MG) BY MOUTH IN THE MORNING AND AT BEDTIME 60 tablet 3 lidocaine (Lidoderm) 5 % patch APPLY 1 PATCH TO SKIN ONCE A DAY NEEDED FOR PAIN omeprazole (PriLOSEC) [address] capsule Take 1 capsule (40 mg) by mouth in the morning. Take before meals. Do not crush or chew. Take 30 minutes prior to breakfast meal.. 100 capsule 3 Potassium Gluconate ER 595 MG tablet controlled-release Take by mouth Daily tiZANidine (Zanaflex) 4 MG tablet Take 4 mg by mouth 3 (three) times a day as needed for muscle spasms traMADol (Ultram) 50 MG tablet Take 1 tablet (50 mg) by mouth every 6 (six) hours if needed for severe pain 120 tablet 0 traZODone (Desyrel) 50 MG tablet TAKE 1 TABLET BY MOUTH EVERYDAY AT BEDTIME 30 tablet 13 [DISCONTINUED] modafinil (Provigil) 200 MG tablet Take 1 tablet (200 mg) by mouth in the morning. 30 tablet 0 [DISCONTINUED] oxybutynin XL (Ditropan-XL) 15 MG 24 hr tablet Take 1 tablet (15 mg) by mouth Daily Do not crush, chew, or split. 100 tablet 3 No current facility-administered medications on file prior to visit. I have reviewed and reconciled the history and medication list with the patient today. Allergies Allergen Reactions Cymbalta [Duloxetine Hcl] Other Excessive sweating Hydromorphone Other Reaction(s): Unknown Social History Tobacco Use Smoking status: Former Current packs/day: 0.00 Types: Cigarettes Quit date: 2014 Years since quittin.1 Smokeless tobacco: Never Vaping Use Vaping status: [...] back pain 2010 Chronic fatigue 2002 Colitis 2016 Colitis 2012 DM (diabetes mellitus) (CMS/[facility]) 2011 Diabetes mellitus, type 2 without comp Melissa Oh infection 2010 Esophageal reflux Fibromyalgia 1992 Gestational diabetes 2005 History of Doppler ultrasound 07/07/2021 Venous Doppler was negative History of Holter monitoring 01/28/2019 NSR Lupus Lyme disease 2013 Lyme Disease(2013) +strep + mycoplasma Mucocele, buccal ANJU on CPAP Past Surgical History: Procedure Laterality Date BACK SURGERY 12/26/2014 L3-S1 Dr. Correa BACK SURGERY 02/2019 Dr. Silva with Repeat back Surgery, Cage and Stabilization BUNIONECTOMY SECTION, LOW TRANSVERSE 2006 CHOLECYSTECTOMY 2013 CYSTOSCOPY 2013 EGD 05/2014 EGD/colonoscopy HARDWARE REMOVAL HERNIA REPAIR inguinal HYSTERECTOMY 2009 LAVH/ BSO KNEE SURGERY 10/08/2021 Arthroscopic partial medial meniscectomy right knee, arthroscopic abrasion chondroplasty LAB [facility] COLON CANCER SCREEN 06/09/2022 Neg LUMBAR FUSION [...] thumb release Dr. Calvert Visit Vitals BP 92/66 Pulse 70 Temp 98.8 F Resp 16 Ht 5' 10 Wt 208 lb 6.4 oz LMP (LMP Unknown) Comment: Hysterectomy 2010 SpO2 95% BMI 29.90 kg/m OB Status Hysterectomy Smoking Status Former BSA 2.16 m Review of Systems Constitutional: Positive for chills and fatigue. Negative for fever. HENT: Positive for congestion and sore throat. Respiratory: Negative for cough, shortness of breath and wheezing. Cardiovascular: Negative for chest pain, palpitations and leg swelling. Gastrointestinal: Positive for diarrhea and nausea. Negative for abdominal pain, constipation and vomiting. Musculoskeletal: Positive for myalgias. Skin: Negative for rash. Neurological: Positive for headaches. Objective Physical Exam Constitutional: General: She is not in acute distress. Appearance: Normal appearance. She is well-developed. HENT: Head: Normocephalic and atraumatic. Eyes: General: No scleral icterus. Conjunctiva/sclera: Conjunctivae normal. Cardiovascular: Rate and Rhythm: Normal rate and regular rhythm. Heart sounds: Normal heart sounds. No murmur heard. Pulmonary: Effort: Pulmonary effort is normal. No respiratory distress. Breath sounds: Normal breath sounds. No wheezing, rhonchi or rales. Skin: General: Skin is warm and dry. Neurological: General: No focal deficit present. Mental Status: She is alert and oriented to person, place, and time. Psychiatric: Mood and Affect: Mood normal. Behavior: Behavior normal. Assessment/Plan Diagnoses and all orders for this visit: Gastroenteritis - ondansetron ODT (Zofran-ODT) 4 MG disintegrating tablet; Take 1 tablet (4 mg) by mouth every 8 (eight) hours if needed for nausea or vomiting for up to 7 days Reassurance given that this is most likely viral and should continue to gradually improve. Start the above medication as needed for nausea. Increase water intake, sipping clear fluids frequently, get plenty of rest. Keep to a bland diet. BRATY diet reviewed. Can take Tylenol prn for any discomfort or fever. Encouraged Probiotic. Wash hands often, and avoid sharing food/drinks. Contact our office if no improvement in one week. Obstructive sleep apnea - modafinil (Provigil) 200 MG tablet; Take 1 tablet (200 mg) by mouth in the morning. Medication choice and dosage is appropriate for patient's current medical conditions. Patient will continue to be required to be seen in our office at least every three months for monitoring. At each follow up visit I will reassess the patient's need for the medication. Patient is to have this medication prescribed only through this office. Failure to follow the rules and regulations will result in tapering and discontinuation of medications if applicable. Patient verbalized understanding. OARRS Report was reviewed for this patient. Mild episode of recurrent major depressive disorder (HCC) (CMS/HCC) S/e from Cymbalta are improving and her mood is stable. She will stop the Oxybutynin as she was only taking that for the sweating. Will recheck her mood at follow up in three months. Contact office sooner with any concerns. Follow up in about 3 months (around 03/05/2025) for Medication Follow Up. documented in this encounter [facility] 12-04-2024 Telephone encounter Note Images from the original note were not included. Maranda Davis [facility] I just wanted to say thank you for all the help with weening off the Cymbalta and my concerns about the Rezulti. I m completely off the Cymbalta and feel so much better. I started the Rezulti this past Wednesday. Keeping fingers crossed this with the Wellbutrin works well. Also my insurance covers the Rezulti 100 percent. Thank you again [facility] 12-04-2024 Miscellaneous Notes Images from the original note were not included. Maranda Davis [facility] I just wanted to say thank you for all the help with weening off the Cymbalta and my concerns about the Rezulti. I m completely off the Cymbalta and feel so much better. I started the Rezulti this past Wednesday. Keeping fingers crossed this with the Wellbutrin works well. Also my insurance covers the Rezulti 100 percent. Thank you again documented in this encounter [facility] 11-27-2024 Telephone encounter Note I sent that in for her. Sent message to pt. [facility] 11-27-2024 Miscellaneous Notes I sent that in for her. Sent message to pt. Spoke with patient and she is willing to try the Rexulti. Please send to [facility] in [place]. She can take up to a total of 450 mg of the Bupropion, but as the recent increase did not help, I would recommend an add on medication like Rexulti to see if that would be more effective for her. Which ever she would prefer, just let me know. Pt states she is having excessive sweating from DULoxetine (Cymbalta) [address] capsule[address] She'd like to know if there is a simiallr med she can take instead. [facility] documented in this encounter [facility] 11-27-2024 Telephone encounter Note Spoke with patient and she is willing to try the Rexulti. Please send to [facility] in [place]. [facility] 11-27-2024 Telephone encounter Note She can take up to a total of 450 mg of the Bupropion, but as the recent increase did not help, I would recommend an add on medication like Rexulti to see if that would be more effective for her. Which ever she would prefer, just let me know. [facility] 11-27-2024 Telephone encounter Note Pt states she is having excessive sweating from DULoxetine (Cymbalta) [address] capsule. She'd like to know if there is a simiallr med she can take instead. [facility] [place] [facility] 11-24-2024 Telephone encounter Note OARRS reviewed, Rx sent into patient's pharmacy. [facility] 11-24-2024 Miscellaneous Notes OARRS reviewed, Rx sent into patient's pharmacy. documented in this encounter [facility] 11-20-2024 History of Present illness Narrative Images from the original note were not included. Subjective Patient ID: Maranda Davis is a 54 y.o. female. RT knee: 1 year s/p RT TKA 12/01/23. Walking well unassisted. Denies pain. States she gets stiffness just above her knee. Uses a muscle rub. No pain meds. Denies giving out. Denies any other issues. States her knee is better now than it was before sx. Pleased with outcome. Objective Ortho Exam Knee Musculoskeletal Exam Inspection Right Erythema: none Effusion: mild Edema: none Ecchymosis: none Deformity: none Alignment: normal Palpation Right Tenderness: none Range of Motion Right Active extension: 5 Active flexion: 100 Strength Right Extension: 4/5. Flexion: 4/5. Instability Instability additional comments: Firm endpoints, no ligament laxity XR knee 1 or 2 views right Imaging Result: AP and lateral of right knee showed surgical position and alignment of prosthetic components without evidence of loosening or wear to the femoral, tibial, or patellar components. The alignment appeared to be anatomic. There was no evidence of accelerated or asymmetric wear to the patellar button or tibial tray. There was no evidence of fracture and/or dislocation. Impression: Unremarkable right total knee arthroplasty. Assessment/Plan Encounter Diagnoses: ICD-10-CM 1. History of total right knee replacement Z96.651 2. Primary osteoarthritis of right knee M17.11 XR knee 1 or 2 views right F/U in 1 year, activities as tolerated, I discussed with the patient the general recommendation for the use of prophylactic antibiotics prior to dental work after joint replacement. I advised the patient that the use of prophylactic antibiotics for dental work is a controversial topic. I currently have recommended that prophylactic antibiotics be used for 2 years postop and I did advise the patient that the guidelines and recommendations may change on this in the future. documented in this encounter [facility] 11-14-2024 History of Present illness Narrative Associated Problem(s): Type 2 diabetes mellitus with diabetic polyneuropathy (CMS/HCC) No Tobacco use Follow ADA 1800 diet [...] and importance of healthy diet and exercise. Associated Problem(s): Systemic lupus erythematosus, unspecified (CMS/HCC) F/Up with rheumatology Associated Problem(s): Depression (CMS/HCC) After 1 week increase Cymbalta to 60mg Continue Wellbutrin Images from the original note were not included. Subjective Patient ID: Maranda Davis is a 54 y.o. female who presents for discuss medications. Pt is taking wellbutrin in the morning and also in the evening pt states this was an increase from aminta that is not helping so she is wanting to find out about getting something different or possible another increase No side effects with Wellbutrin Duloxetine has been out of the system for 3 months Current Outpatient Medications on File Prior to Visit Medication Sig Dispense Refill celecoxib (CeleBREX) 200 MG capsule TAKE 1 CAPSULE BY MOUTH TWICE A DAY NEEDED FOR PAIN pregabalin (Lyrica) 200 MG capsule TAKE 1 CAPSULE BY MOUTH IN THE MORNING AND 1 CAPSULE IN THE EVENING AND 1 CAPSULE BEFORE BEDTIME. 90 capsule 0 buPROPion SR (Wellbutrin SR) 200 MG 12 hr tablet Take 1 tablet (200 mg) by mouth in the morning and in the evening Do not crush, chew, or split. 180 tablet 3 clonazePAM (KlonoPIN) 1 MG tablet Take 1 tablet (1 mg) by mouth at bedtime 30 tablet 0 estradiol (Vivelle-DOT) 0.1 MG/24HR Place 1 patch over 96 hours on the skin 2 (two) times a week 24 patch 3 furosemide (Lasix) 40 MG tablet TAKE 1 TABLET (40 MG) BY MOUTH IN THE MORNING AND AT BEDTIME 60 tablet 3 lidocaine (Lidoderm) 5 % patch APPLY 1 PATCH TO SKIN ONCE A DAY NEEDED FOR PAIN modafinil (Provigil) 200 MG tablet Take 1 tablet (200 mg) by mouth in the morning. 30 tablet 0 omeprazole (PriLOSEC) [address] capsule Take 1 capsule (40 mg) by mouth in the morning. Take before meals. Do not crush or chew. Take 30 minutes prior to breakfast meal.. 100 capsule 3 oxybutynin XL (Ditropan-XL) 15 MG 24 hr tablet Take 1 tablet (15 mg) by mouth Daily Do not crush, chew, or split. 100 tablet 3 Potassium Gluconate ER 595 MG tablet controlled-release Take by mouth Daily tiZANidine (Zanaflex) 4 MG tablet Take 4 mg by mouth 3 (three) times a day as needed for muscle spasms traMADol (Ultram) 50 MG tablet Take 1 tablet (50 mg) by mouth every 6 (six) hours if needed for severe pain 120 tablet 0 traZODone (Desyrel) 50 MG tablet TAKE 1 TABLET BY MOUTH EVERYDAY AT BEDTIME 30 tablet 13 [DISCONTINUED] pregabalin (Lyrica) 200 MG capsule Take 1 capsule (200 mg) by mouth in the morning and 1 capsule (200 mg) in the evening and 1 capsule (200 mg) before bedtime. 90 capsule 5 No current facility-administered medications on file prior to visit. I have reviewed and reconciled the history and medication list with the patient today. Allergies Allergen Reactions Hydromorphone Other Reaction(s): Unknown Social History Tobacco Use Smoking status: Former Current packs/day: 0.00 Types: Cigarettes Quit date: 2014 Years since quittin.1 Smokeless tobacco: Never Vaping Use Vaping status: [...] in urine Cholelithiasis 2013 Chronic back pain 2011 Chronic fatigue 2003 Colitis 2016 Colitis 2012 DM (diabetes mellitus) (CMS/[facility]) 2012 Diabetes mellitus, type 2 without comp Melissa Oh infection 2010 Esophageal reflux Fibromyalgia 1993 Gestational diabetes 2006 History of Doppler ultrasound 07/07/2021 Venous Doppler was negative History of Holter monitoring 01/28/2019 NSR Lupus Lyme disease 2013 Lyme Disease(2013) +strep + [...] meniscectomy right knee, arthroscopic abrasion chondroplasty LAB [facility] COLON CANCER SCREEN 06/09/2022 Neg LUMBAR FUSION 11/18/2016 L1-L2 Dr. silva OTHER SURGICAL HISTORY Back Injections, Back pain OTHER SURGICAL HISTORY 09/2015 Placement of morphine pump OTHER SURGICAL HISTORY 2006 Tubal reversal-[facility] OTHER SURGICAL HISTORY Elective AB - age 17 SPINAL CORD STIMULATOR IMPLANT 2012 Stimulator implant-Back pain-removed 2017 SPINAL FUSION 2010 TONSILLECTOMY TOTAL HIP ARTHROPLASTY Left 05/13/2021 Dr. Silva TOTAL KNEE ARTHROPLASTY Right 12/01/2023 Dr Calvert TRIGGER FINGER RELEASE Right 10/18/[address] Calvert Visit Vitals BP 118/80 Pulse 71 Ht 5' 10 Wt 210 lb LMP (LMP Unknown) Comment: Hysterectomy 2009 SpO2 94% BMI 30.13 kg/m OB Status Hysterectomy Smoking [...] and confusion. The patient is not nervous/anxious. All other systems reviewed and are negative. Objective Physical Exam Constitutional: General: She is [...] time. Psychiatric: Mood and Affect: Mood normal. Assessment/Plan Problem List Items Addressed This Visit Depression (CMS/HCC) - Primary After 1 week increase Cymbalta to 60mg Continue Wellbutrin Relevant Medications DULoxetine (Cymbalta) [address] capsule Fibromyalgia Relevant Medications DULoxetine (Cymbalta) [address] capsule Systemic lupus erythematosus, unspecified (CMS/HCC) F/Up with rheumatology Type 2 diabetes mellitus with diabetic polyneuropathy (CMS/HCC) No Tobacco use Follow ADA 1800 diet [...] and importance of healthy diet and exercise. No follow-ups on file. documented in this encounter [facility] 11-01-2024 Telephone encounter Note OARRS reviewed, Rx sent into patient's pharmacy. [facility] 11-01-2024 Miscellaneous Notes OARRS reviewed, Rx sent into patient's pharmacy. documented in this encounter [facility] 10-25-2024 Telephone encounter Note OARRS reviewed, Rx sent into patient's pharmacy. [facility] 10-25-2024 Miscellaneous Notes OARRS reviewed, Rx sent into patient's pharmacy. clonazePAM (KlonoPIN) 1 MG tablet [facility] [place] documented in this encounter [facility] 10-25-2024 Telephone encounter Note clonazePAM (KlonoPIN) 1 MG tablet [facility] [place] [facility] 10-20-2024 Telephone encounter Note OARRS reviewed, Rx sent into patient's pharmacy. [facility] 10-20-2024 Miscellaneous Notes OARRS reviewed, Rx sent into patient's pharmacy. Last OV 12--24 Last RF 07-31-24 documented in this encounter [facility] 10-20-2024 Telephone encounter Note Last OV 12--24 Last RF 07-31-24 [facility] 10-02-2024 Telephone encounter Note OARRS reviewed, Rx sent into patient's pharmacy. [facility] 10-02-2024 Miscellaneous Notes OARRS reviewed, Rx sent into patient's pharmacy. documented in this encounter [facility] 09-21-2024 Telephone encounter Note OARRS reviewed, Rx sent into patient's pharmacy. [facility] 09-21-2024 Miscellaneous Notes OARRS reviewed, Rx sent into patient's pharmacy. documented in this encounter [facility] 09-12-2024 History of Present illness Narrative Images from the original note were not included. HPI Excessive Sweating Additional comments: States she is on Oxybutynin for this but does not feel like it is working very well for her anymore. Her [facility] did switch her estradiol from a pill to a patch and that has helped some but wants to discuss different med options. The patch helped decrease hot flashes from 5 times a day down to 3 times a day Last edited by ALVARADO Ramos on 09/12/2024 8:23 AM. Subjective Patient ID: Maranda Davis is a 54 y.o. female who presents for depression. Maranda is present today for follow up depression. At her last office visit she was weaned off Duloxentine d/t she had been on it for a long time and was started on Bupropion and does not feel it is working, she cries easily, get angry, feels down. Drinks a lot of water. Current Outpatient Medications on File Prior to Visit Medication Sig Dispense Refill tiZANidine (Zanaflex) 4 MG tablet Take 4 mg by mouth 3 (three) times a day as needed for muscle spasms clonazePAM (KlonoPIN) 1 MG tablet TAKE 1 TABLET BY MOUTH EVERYDAY AT BEDTIME 30 tablet 0 estradiol (Vivelle-DOT) 0.1 MG/24HR Place 1 patch over 96 hours on the skin 2 (two) times a week 24 patch 3 furosemide (Lasix) 40 MG tablet TAKE 1 TABLET (40 MG) BY MOUTH IN THE MORNING AND AT BEDTIME 60 tablet 3 lidocaine (Lidoderm) 5 % patch APPLY 1 PATCH TO SKIN ONCE A DAY NEEDED FOR PAIN modafinil (Provigil) 200 MG tablet TAKE 1 TABLET BY MOUTH EVERY DAY IN THE MORNING 30 tablet 0 omeprazole (PriLOSEC) [address] capsule Take 1 capsule (40 mg) by mouth in the morning. Take before meals. Do not crush or chew. Take 30 minutes prior to breakfast meal.. 90 capsule 3 oxybutynin XL (Ditropan-XL) 15 MG 24 hr tablet Take 15 mg by mouth Daily Do not crush, chew, or split. Potassium Gluconate ER 595 MG tablet controlled-release Take by mouth Daily pregabalin (Lyrica) 200 MG capsule Take 1 capsule (200 mg) by mouth in the morning and 1 capsule (200 mg) in the evening and 1 capsule (200 mg) before bedtime. 90 capsule 5 traMADol (Ultram) 50 MG tablet Take 1 tablet (50 mg) by mouth every 6 (six) hours if needed for severe pain 120 tablet 0 traZODone (Desyrel) 50 MG tablet TAKE 1 TABLET BY MOUTH EVERYDAY AT BEDTIME 30 tablet 13 [DISCONTINUED] baclofen (Lioresal) 10 MG tablet Take 1 tablet (10 mg) by mouth in the morning and 1 tablet (10 mg) in the evening and 1 tablet (10 mg) before bedtime. 90 tablet 0 [DISCONTINUED] buPROPion SR (Wellbutrin SR) 100 MG 12 hr tablet Take 1 tablet (100 mg) by mouth in the morning and 1 tablet (100 mg) before bedtime. Do not crush, chew, or split.. 60 tablet 11 [DISCONTINUED] DULoxetine (Cymbalta) [address] capsule TAKE 2 CAPSULES BY MOUTH EVERY DAY (Patient not taking: No sig reported) 200 capsule 3 [DISCONTINUED] famotidine (Pepcid) 40 MG tablet Take 1 tablet (40 mg) by mouth in the morning. (Patient not taking: No sig reported) 30 tablet 5 No current facility-administered medications on file prior to visit. I have reviewed and reconciled the history and medication list with the patient today. Allergies Allergen Reactions Hydromorphone Other Reaction(s): Unknown Social History Tobacco Use Smoking status: Former Current packs/day: 0.00 Types: Cigarettes Quit date: 2014 Years since quittin.9 Smokeless tobacco: Never Vaping Use Vaping status: [...] in urine Cholelithiasis 2013 Chronic back pain 2011 Chronic fatigue 2003 Colitis 2016 Colitis 2012 DM (diabetes mellitus) (CMS/[facility]) 2011 Diabetes mellitus, type 2 without comp Melissa Oh infection 2010 Esophageal reflux Fibromyalgia 1992 Gestational diabetes 2006 History of Doppler ultrasound 07/07/2021 Venous Doppler was negative History of Holter monitoring 01/28/2019 NSR Lupus Lyme disease 2014 Lyme Disease(2013) +strep + mycoplasma Mucocele, buccal [...] meniscectomy right knee, arthroscopic abrasion chondroplasty LAB [facility] COLON CANCER SCREEN 06/09/2022 Neg LUMBAR FUSION 11/18/2016 L1-L2 Dr. silva OTHER SURGICAL HISTORY Back Injections, Back pain OTHER SURGICAL HISTORY 09/2015 Placement of morphine pump OTHER SURGICAL HISTORY 2005 Tubal reversal-[facility] OTHER SURGICAL HISTORY Elective AB - age 17 SPINAL CORD STIMULATOR IMPLANT 2013 Stimulator implant-Back pain-removed 2016 SPINAL FUSION 2010 TONSILLECTOMY TOTAL HIP ARTHROPLASTY Left 05/13/2021 Dr. Silva TOTAL KNEE ARTHROPLASTY Right 12/01/2023 Dr Calvert TRIGGER FINGER RELEASE Right 10/18/[address] Calvert Visit Vitals BP 100/68 Pulse 64 Resp 16 Ht 5' 10 Wt 211 lb 6.4 oz LMP (LMP Unknown) Comment: Hysterectomy 2010 SpO2 95% BMI 30.33 kg/m OB Status Hysterectomy Smoking Status Former BSA 2.18 m Review of Systems Constitutional: Negative for chills, fatigue and fever. Respiratory: Negative for cough, shortness of breath and wheezing. Cardiovascular: Negative for chest pain, palpitations and leg swelling. Gastrointestinal: Negative for abdominal pain, constipation, diarrhea, nausea and vomiting. Genitourinary: Incontinence Skin: Negative for rash. Neurological: Positive for headaches. Psychiatric/Behavioral: Positive for agitation and dysphoric mood. Objective Physical Exam Constitutional: General: She is not in acute distress. Appearance: She is well-developed. She is obese. HENT: Head: Normocephalic and atraumatic. Eyes: General: No scleral icterus. Conjunctiva/sclera: Conjunctivae normal. Cardiovascular: Rate and Rhythm: Normal rate and regular rhythm. Heart sounds: Normal heart sounds. No murmur heard. Pulmonary: Effort: Pulmonary effort is normal. No respiratory distress. Breath sounds: Normal breath sounds. No wheezing, rhonchi or rales. Skin: General: Skin is warm and dry. Neurological: General: No focal deficit present. Mental Status: She is alert and oriented to person, place, and time. Psychiatric: Mood and Affect: Mood is depressed. Behavior: Behavior normal. Assessment/Plan Diagnoses and all orders for this visit: Fibromyalgia Consider Savella if no improvement with higher dosage of Wellbutrin. Depressive disorder (CMS/HCC) - buPROPion XL (Wellbutrin XL) 300 MG 24 hr tablet; Take 1 tablet (300 mg) by mouth Daily Do not crush, chew, or split. Will try an increase of Bupropion to 300 mg daily. She can contact office if no improvement over the next two-three weeks. Does still have some of the 100 mg dosage at home. So could taper patient off of the Bupropion and start the new medication if needed. Excessive sweating Does not note improvement with Oxybutynin. Mild improvement with the Estradiol patches. Consider alternatives if does not improve over next few weeks. Hot flashes due to menopause See above. Does follow with [employer]. Tension headache Has been using a Headache Relief Cap as needed with some benefit. Encouraged pt to continue to stay hydrated. Follow up in about 3 months (around 12/11/2024) for Medication Follow Up. documented in this encounter [facility] 09-11-2024 History of Present illness Narrative Images from the original note were not included. Subjective Patient ID: Maranda Davis is a 54 y.o. female. RT knee: 9 months 1 1/2 weeks s/p RT TKA 12/01/23. Notes the last couple months she has had intermittent pain/ache lateral knee. Denies radiation. Denies pain at rest, mostly with WB. Has pain pump for back. Taking Tramadol in the AM prn. Using heat prn. Admits swelling. Continue to have some numbness laterally. Occas giving out, usually with prolonged WB. Does not wake at HS. Doing HEP. Going on vacation soon, wants to make sure everything is fine. Objective Right Knee Exam Tests Blanca: Medial - negative Lateral - negative Knee Musculoskeletal Exam Inspection Right Erythema: none Effusion: mild Edema: none Ecchymosis: none Deformity: none Alignment: normal Palpation Right Tenderness: none Range of Motion Right Active extension: 0 Active flexion: 110 Strength Right Extension: 4/5. Flexion: 4/5. Instability Right Medial Blanca test: negative Lateral Blanca test: negative Instability additional comments: Firm endpoints, no ligament laxity XR knee 1 or 2 views right Imaging Result: Xrays AP and LAT of the right knee performed on September 11, 2024 demonstrates AP and lateral of right knee showed surgical position and alignment of prosthetic components without evidence of loosening or wear to the femoral, tibial, or patellar components. The alignment appeared to be anatomic. There was no evidence of accelerated or asymmetric wear to the patellar button or tibial tray. There was no evidence of fracture and/or dislocation. Impression: Unremarkable right total knee arthroplasty. Assessment/Plan Encounter Diagnoses: ICD-10-CM 1. Right knee pain, unspecified chronicity M25.561 XR knee 1 or 2 views right 2. History of total right knee replacement Z96.651 Discussion of activities as tolerated, f/U in Nov with xrays and check. Discussion of ATB for 2 years s/p surgery. documented in this encounter [facility] 09-04-2024 Telephone encounter Note OARRS reviewed, Rx sent into patient's pharmacy. [facility] 09-04-2024 Miscellaneous Notes OARRS reviewed, Rx sent into patient's pharmacy. Patient called asking for a refill om their Modanfinil 200MG documented in this encounter [facility] 09-04-2024 History of Present illness Narrative Images from the original note were not included. Subjective Maranda Davis is a 54 y.o. female Chief Complaint Patient presents with Gynecologic Exam Pt presents for follow up She was started on Triamcinolone ointment for vulvar irritation, and was put on estrogen patches and states she stopped triamcinolone due to having no relief and getting sweats. She started back on oxybutynin. Patch is helping her , has a little nausea at times. History of Present Illness Current Outpatient Medications: baclofen (Lioresal) 10 MG tablet, Take 1 tablet (10 mg) by mouth in the morning and 1 tablet (10 mg) in the evening and 1 tablet (10 mg) before bedtime., Disp: 90 tablet, Rfl: 0 buPROPion SR (Wellbutrin SR) 100 MG 12 hr tablet, Take 1 tablet (100 mg) by mouth in the morning and 1 tablet (100 mg) before bedtime. Do not crush, chew, or split.., Disp: 60 tablet, Rfl: 11 clonazePAM (KlonoPIN) 1 MG tablet, TAKE 1 TABLET BY MOUTH EVERYDAY AT BEDTIME, Disp: 30 tablet, Rfl: 0 estradiol (Vivelle-DOT) 0.1 MG/24HR, Place 1 patch over 96 hours on the skin 2 (two) times a week, Disp: 24 patch, Rfl: 3 furosemide (Lasix) 40 MG tablet, TAKE 1 TABLET (40 MG) BY MOUTH IN THE MORNING AND AT BEDTIME, Disp: 60 tablet, Rfl: 3 lidocaine (Lidoderm) 5 % patch, APPLY 1 PATCH TO SKIN ONCE A DAY NEEDED FOR PAIN, Disp: , Rfl: oxybutynin XL (Ditropan-XL) 15 MG 24 hr tablet, Take 15 mg by mouth Daily Do not crush, chew, or split., Disp: , Rfl: DULoxetine (Cymbalta) [address] capsule, TAKE 2 CAPSULES BY MOUTH EVERY DAY (Patient not taking: Reported on 09/04/2024), Disp: 200 capsule, Rfl: 3 famotidine (Pepcid) 40 MG tablet, Take 1 tablet (40 mg) by mouth in the morning. (Patient not taking: Reported on 09/04/2024), Disp: 30 tablet, Rfl: 5 modafinil (Provigil) 200 MG tablet, TAKE 1 TABLET BY MOUTH IN THE MORNING, Disp: 30 tablet, Rfl: 0 omeprazole (PriLOSEC) [address] capsule, Take 1 capsule (40 mg) by mouth in the morning. Take before meals. Do not crush or chew. Take 30 minutes prior to breakfast meal.., Disp: 90 capsule, Rfl: 3 Potassium Gluconate ER 595 MG tablet controlled-release, Take by mouth Daily, Disp: , Rfl: pregabalin (Lyrica) 200 MG capsule, Take 1 capsule (200 mg) by mouth in the morning and 1 capsule (200 mg) in the evening and 1 capsule (200 mg) before bedtime., Disp: 90 capsule, Rfl: 5 traMADol (Ultram) 50 MG tablet, Take 1 tablet (50 mg) by mouth every 6 (six) hours if needed for severe pain, Disp: 120 tablet, Rfl: 0 traZODone (Desyrel) 50 MG tablet, TAKE 1 TABLET BY MOUTH EVERYDAY AT BEDTIME, Disp: 30 tablet, Rfl: 13 Past Medical History: Diagnosis Date Allergic rhinitis cause unspecified Back pain 2009 Blood in urine Cholelithiasis 2013 Chronic back pain 2010 Chronic fatigue 2003 Colitis 2016 Colitis 2012 DM (diabetes mellitus) (CMS/[facility]) 2011 Diabetes mellitus, type 2 without comp Melissa Oh infection 2010 Esophageal reflux Fibromyalgia 1992 Gestational diabetes 2006 History of Doppler ultrasound 07/07/2021 Venous Doppler was negative History of Holter monitoring 01/28/2019 NSR Lupus Lyme disease 2013 Lyme Disease(2013) +strep + [...] meniscectomy right knee, arthroscopic abrasion chondroplasty LAB [facility] COLON CANCER SCREEN 06/09/2022 Neg LUMBAR FUSION 11/18/2016 L1-L2 Dr. silva OTHER SURGICAL HISTORY Back Injections, Back pain OTHER SURGICAL HISTORY 09/2015 Placement of morphine pump OTHER SURGICAL HISTORY 2006 Tubal reversal-[facility] OTHER SURGICAL HISTORY Elective AB - age 17 SPINAL CORD STIMULATOR IMPLANT 2013 Stimulator implant-Back pain-removed 2017 SPINAL FUSION 2011 TONSILLECTOMY TOTAL HIP ARTHROPLASTY Left 05/13/2021 Dr. Kepplar TOTAL KNEE ARTHROPLASTY Right 12/01/2023 Dr Calvert TRIGGER FINGER RELEASE Right 10/18/[address] Calvert Family History Problem Relation Name Age of Onset No Known Problems Mother Other (epilepsy) Father Heart disease Father Fibromyalgia Sister Other (DDD) Sister No Known Problems Brother No Known Problems Daughter No Known Problems Son Colon cancer Paternal Grandmother OB History Para Term AB Living 3 0 0 0 1 3 SAB IAB Ectopic Multiple Live Births 0 1 0 0 3 # Outcome Date GA Lbr Khoi/2nd Weight Sex Type Anes PTL Lv 3 IAB 1987 2 1 Obstetric Comments Pap 01/01/21- Neg Mammogram 02/05/22- Neg Cologuard 05/2022- Neg LAVH/BSO 2009 Review of Systems All negative unless documented in treatment Objective Visit Vitals BP 104/70 Wt 214 lb LMP (LMP Unknown) Comment: Hysterectomy 2010 BMI 30.71 kg/m OB Status Hysterectomy Smoking Status Former BSA 2.19 m Allergies Allergen Reactions Hydromorphone Other Reaction(s): Unknown Physical Exam Constitutional: Appearance: Normal appearance. HENT: Head: Normocephalic and atraumatic. Musculoskeletal: Right lower leg: No edema. Left lower leg: No edema. Neurological: Mental Status: She is alert and oriented to person, place, and time. Skin: General: Skin is warm and dry. Findings: No rash. Psychiatric: Mood and Affect: Mood normal. Behavior: Behavior normal. Procedures ICD-10-CM 1. Vaginal atrophy N95.2 2. Urinary urgency R39.15 3. Vulvar irritation N90.89 4. Hot flashes due to menopause N95.1 She presents for follow up. Was started on Vivelle Dot for hot flashes - has had some relief in hot flashes and night sweats, they are resolving quicker. She is happy with the patch for now and would like to continue. If patch does not stick as she does water therapy could switch to the gel. Oxybutynin was switched to Trospium for urinary urgency and intermittent urge incontinence but states she did not notice a difference so she went back to Oxybutynin. She was prescribed Oxybutynin for hot flashes by her physician managing her fibromyalgia. She would like to start on Oxybutynin for now. If her bladder symptoms persist or worsen she will call office and can revisit advanced therapies- botox to bladder, Interstim. She was started on Triamcinolone ointment for vulvar irritation- irritation has resolved. Overall she is doing well and will call office with any problems or concerns. Entered by Yari Quintanilla LPN acting as scribe for Dr. Cody Urias. Signature: Yari Quintanilla LPN The documentation recorded by the scribe accurately reflects the service(s) I personally performed and the decisions I made. Signature: Cody Urias DO Assessment & Plan documented in this encounter [facility] 09-04-2024 Telephone encounter Note Patient called asking for a refill om their Modanfinil 200MG [facility] 08-17-2024 Telephone encounter Note Pt called stating that the tiZANidine (Zanaflex) 4 MG tablet makes her to sleepy and she is still having headaches. She'd like a different medication [facility] 08-17-2024 Miscellaneous Notes Pt called stating that the tiZANidine (Zanaflex) 4 MG tablet makes her to sleepy and she is still having headaches. She'd like a different medication documented in this encounter [facility] 08-11-2024 History of Present illness Narrative Images from the original note were not included. Andreas Davis is a 54 y.o. female No chief complaint on file. History of Present Illness The patient presents for evaluation of hot flashes and bladder issues. She experiences sudden bouts of fatigue and excessive sweating, particularly at night. Previously, she was on estradiol 2 mg, which did not alleviate her symptoms. She switched to Premarin but discontinued its use due to cost concerns. She has not had a blood test to assess her absorption of the medication. Additionally, she reports having sensitive skin. She experiences frequent urination, often feeling an urgent need to urinate a few times a day. She is currently taking oxybutynin 10 mg extended release once daily, which was prescribed years ago to help with her sweating. She sometimes has difficulty initiating urination and occasionally dribbles after urination. There is also occasional leakage when she coughs. She has been using dextromethorphan, which seems to provide some relief. Additionally, she takes six stool softeners daily. She has had a pain pump in place for 5 years now. Current Outpatient Medications: amitriptyline (Elavil) 25 MG tablet, TAKE 1 TABLET BY MOUTH EVERY DAY AT BEDTIME FOR 90 DAYS, Disp: 100 tablet, Rfl: 3 buPROPion SR (Wellbutrin SR) 100 MG 12 hr tablet, Take 1 tablet (100 mg) by mouth in the morning and 1 tablet (100 mg) before bedtime. Do not crush, chew, or split.., Disp: 60 tablet, Rfl: 11 celecoxib (CeleBREX) 200 MG capsule, Take 200 mg by mouth in the morning., Disp: , Rfl: clonazePAM (KlonoPIN) 1 MG tablet, TAKE 1 TABLET BY MOUTH EVERYDAY AT BEDTIME, Disp: 30 tablet, Rfl: 0 DULoxetine (Cymbalta) [address] capsule, TAKE 2 CAPSULES BY MOUTH EVERY DAY, Disp: 200 capsule, Rfl: 3 estrogens, conjugated, (Premarin) 0.625 MG tablet, Take 1 tablet (0.625 mg) by mouth Daily Take daily for 21 days then do not take for 7 days., Disp: 30 tablet, Rfl: 11 famotidine (Pepcid) 40 MG tablet, Take 1 tablet (40 mg) by mouth in the morning., Disp: 30 tablet, Rfl: 5 furosemide (Lasix) 40 MG tablet, Take 1 tablet (40 mg) by mouth in the morning and 1 tablet (40 mg) before bedtime., Disp: 60 tablet, Rfl: 0 lidocaine (Lidoderm) 5 % patch, APPLY 1 PATCH TO SKIN ONCE A DAY NEEDED FOR PAIN, Disp: , Rfl: loratadine (Claritin) 10 MG tablet, Take 10 mg by mouth in the morning., Disp: , Rfl: modafinil (Provigil) 200 MG tablet, TAKE 1 TABLET BY MOUTH IN THE MORNING, Disp: 30 tablet, Rfl: 0 omeprazole (PriLOSEC) [address] capsule, Take 1 capsule (40 mg) by mouth in the morning. Take before meals. Do not crush or chew. Take 30 minutes prior to breakfast meal.., Disp: 90 capsule, Rfl: 3 Potassium Gluconate ER 595 MG tablet controlled-release, Take by mouth Daily, Disp: , Rfl: pregabalin (Lyrica) 200 MG capsule, Take 1 capsule (200 mg) by mouth in the morning and 1 capsule (200 mg) in the evening and 1 capsule (200 mg) before bedtime., Disp: 90 capsule, Rfl: 5 tiZANidine (Zanaflex) 4 MG tablet, Take 1 tablet (4 mg) by mouth every 8 (eight) hours if needed for muscle spasms, Disp: 90 tablet, Rfl: 0 traMADol (Ultram) 50 MG tablet, Take 1 tablet (50 mg) by mouth every 6 (six) hours if needed for severe pain, Disp: 120 tablet, Rfl: 0 traZODone (Desyrel) 50 MG tablet, TAKE 1 TABLET BY MOUTH EVERYDAY AT BEDTIME, Disp: 30 tablet, Rfl: 13 Past Medical History: Diagnosis Date Allergic rhinitis cause unspecified Back pain 2009 Blood in urine Cholelithiasis 2013 Chronic back pain 2011 Chronic fatigue 2003 Colitis 2016 Colitis 2012 DM (diabetes mellitus) (CMS/[facility]) 2012 Diabetes mellitus, type 2 without comp Melissa Oh infection 2010 Esophageal reflux Fibromyalgia 1993 Gestational diabetes 2006 History of Doppler ultrasound 07/07/2021 Venous Doppler was negative History of Holter monitoring 01/28/2019 NSR Lupus Lyme disease 2013 Lyme Disease(2013) +strep + [...] meniscectomy right knee, arthroscopic abrasion chondroplasty LAB [facility] COLON CANCER SCREEN 06/09/2022 Neg LUMBAR FUSION 11/18/2016 L1-L2 Dr. silva OTHER SURGICAL HISTORY Back Injections, Back pain OTHER SURGICAL HISTORY 09/2015 Placement of morphine pump OTHER SURGICAL HISTORY 2005 Tubal reversal-[facility] OTHER SURGICAL HISTORY Elective AB - age 17 SPINAL CORD STIMULATOR IMPLANT 2012 Stimulator implant-Back pain-removed 2017 SPINAL FUSION 2010 TONSILLECTOMY TOTAL HIP ARTHROPLASTY Left 05/13/2021 Dr. Silva TOTAL KNEE ARTHROPLASTY Right 12/01/2023 Dr Calvert TRIGGER FINGER RELEASE Right 10/18/[address] Calvert Family History Problem Relation Name Age of Onset No Known Problems Mother Other (epilepsy) Father Heart disease Father Fibromyalgia Sister Other (DDD) Sister No Known Problems Brother No Known Problems Daughter No Known Problems Son Colon cancer Paternal Grandmother OB History Para Term AB Living 3 0 0 0 1 3 SAB IAB Ectopic Multiple Live Births 0 1 0 0 3 # Outcome Date GA Lbr Khoi/2nd Weight Sex Type Anes PTL Lv 3 IAB 1987 2 1 Obstetric Comments Pap 01/01/21- Neg Mammogram 02/05/22- Neg Cologuard 05/2022- Neg LAVH/BSO 2010 Review of Systems All negative unless documented in treatment Objective Visit Vitals LMP (LMP Unknown) Comment: Hysterectomy 2010 OB Status Hysterectomy Smoking Status Former Allergies Allergen Reactions Hydromorphone Other Reaction(s): Unknown Physical Exam Constitutional: Appearance: Normal appearance. Genitourinary: Bladder, rectum and urethral meatus normal. Right Labia: skin changes (mild erythema). Right Labia: No rash, tenderness or lesions. Left Labia: skin changes (mild erythema). Left Labia: No tenderness, lesions or rash. No vaginal discharge. Anterior and posterior vaginal prolapse present. No vaginal atrophy present. Right Adnexa: not tender, not full and no mass present. Left Adnexa: not tender, not full and no mass present. Cervix is absent. Uterus is absent. Urethral hypermobility present. HENT: Head: Normocephalic and atraumatic. Eyes: General: No scleral icterus. Cardiovascular: Rate and Rhythm: Normal rate and regular rhythm. Heart sounds: Normal heart sounds. No murmur heard. Pulmonary: Effort: Pulmonary effort is normal. Breath sounds: Normal breath sounds. Abdominal: General: There is no distension. Palpations: Abdomen is soft. There is no mass. Hernia: No hernia is present. Musculoskeletal: Right lower leg: No edema. Left lower leg: No edema. Neurological: General: No focal deficit present. Mental Status: She is alert and oriented to person, place, and time. Skin: General: Skin is warm and dry. Findings: No rash. Psychiatric: Mood and Affect: Mood normal. Behavior: Behavior normal. Vitals and nursing note reviewed. Exam conducted with a meter calibrator present. Procedures ICD-10-CM 1. Vaginal atrophy N95.2 2. Urinary urgency R39.15 Assessment & Plan 1. Hot flashes. The patient reports experiencing hot flashes and sweating, particularly at night. She was previously on estradiol 2 mg tablets, which were ineffective, and she found Premarin tablets too expensive. A prescription for an estradiol patch has been provided, to be applied twice weekly, to see if it improves absorption and alleviates symptoms. 2. Bladder urgency. The patient experiences bladder urgency and occasional incontinence. She is currently on oxybutynin 10 mg extended-release once daily, which has not been effective. Oxybutynin will be discontinued and replaced with trospium, to be taken once daily. A urine specimen was collected to rule out infection. If symptoms persist after 3-4 weeks, advanced therapies such as Botox injections or InterStim may be considered. A test will be conducted to ensure complete bladder emptying. 3. Skin irritation. An ointment has been prescribed for application once or twice daily to alleviate skin irritation. She is advised to use dye-free detergent and avoid fabric softeners on underwear, and to use unscented soap to reduce irritation. Follow-up Return in 4 weeks for follow up. documented in this encounter [facility] 08-01-2024 Telephone encounter Note Ok for referral to Plastic Surgery for breast reduction due to Back pain. Have patient reach put to Dr. Urias office to see if they have good alternatives to Premarin for some hot flashes [facility] 08-01-2024 Miscellaneous Notes Ok for referral to Plastic Surgery for breast reduction due to Back pain. Have patient reach put to Dr. Urias office to see if they have good alternatives to Premarin for some hot flashes documented in this encounter [facility] 07-31-2024 Telephone encounter Note OARRS reviewed, Rx sent into patient's pharmacy. [facility] 07-31-2024 Miscellaneous Notes OARRS reviewed, Rx sent into patient's pharmacy. documented in this encounter [facility] 07-31-2024 Telephone encounter Note OARRS reviewed, Rx sent into patient's pharmacy. [facility] 07-31-2024 Miscellaneous Notes OARRS reviewed, Rx sent into patient's pharmacy. documented in this encounter [facility] 07-24-2024 History of Present illness Narrative [...] in urine Cholelithiasis 2013 Chronic back pain 2011 Chronic fatigue 2003 Colitis 2016 Colitis 2012 DM (diabetes mellitus) (CMS/HCC) 2012 Diabetes mellitus, type 2 without comp Melissa Oh infection 2011 Esophageal reflux Fibromyalgia 1992 Gestational diabetes 2006 History of Doppler ultrasound 07/07/2021 Venous Doppler was negative History of Holter monitoring 01/28/2019 NSR Lupus (CMS/HCC) Lyme disease 2014 Lyme Disease(2013) +strep + mycoplasma Mucocele, buccal [...] meniscectomy right knee, arthroscopic abrasion chondroplasty LAB [facility] COLON CANCER SCREEN 06/09/2022 Neg LUMBAR FUSION 11/18/2016 L1-L2 Dr. silva OTHER SURGICAL HISTORY Back Injections, Back pain OTHER SURGICAL HISTORY 09/2015 Placement of morphine pump OTHER SURGICAL HISTORY 2005 Tubal reversal-[facility] OTHER SURGICAL HISTORY Elective AB - age 17 SPINAL CORD STIMULATOR IMPLANT 2012 Stimulator implant-Back pain-removed 2017 SPINAL FUSION 2010 TONSILLECTOMY TOTAL HIP ARTHROPLASTY Left 05/13/2021 Dr. [...] follow-ups on file. documented in this encounter [facility] 07-20-2024 Telephone encounter Note OARRS reviewed, Rx sent into patient's pharmacy. [facility] 07-20-2024 Miscellaneous Notes OARRS reviewed, Rx sent into patient's pharmacy. documented in this encounter [facility] 06-30-2024 Telephone encounter Note scheduled [facility] 06-30-2024 Miscellaneous Notes scheduled Have her make an appt with either brunilda or other providers as she does need annual visit Pt states that the Cymbalta isn't working well for her depression. She's wanting to know if she needs to see dr Worley again or if he can just switch her to something else documented in this encounter [facility] 06-30-2024 Telephone encounter Note Have her make an appt with either brunilda or other providers as she does need annual visit [facility] 06-30-2024 Telephone encounter Note Pt states that the Cymbalta isn't working well for her depression. She's wanting to know if she needs to see dr Worley again or if he can just switch her to something else [facility] 06-29-2024 Telephone encounter Note OARRS reviewed, Rx sent into patient's pharmacy. [facility] 06-29-2024 Miscellaneous Notes OARRS reviewed, Rx sent into patient's pharmacy. documented in this encounter [facility] 06-26-2024 History of Present illness Narrative [...] swelling. 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 Wrists and elbows are [...] 54 year old female who presents to [facility] rheumatology clinic for evaluation of positive SASCHA 1:80 nuclear pattern and joint pain PCP Dr. Worley, got her care from [facility], 1 hour from here. 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 Lives with and son. Has [...] EtOH: No Occupation: Used to worked in [place] at [employer], retired now Social History Socioeconomic History Marital [...] min Stress: No Stress Concern Present (06/24/2024) [employer] [place] [employer] - Occupational Stress Questionnaire Feeling of Stress : Not at all Social Connections: Socially Integrated (06/24/2024) Social Connection and Isolation Panel [NHANES] Frequency of Communication with Friends and Family: More than three times a week Frequency of Social Gatherings with Friends and Family: Three times a week Attends Christian Services: More than 4 times per year [...] or any previous visit (from the past 16615 hour(s)). No results found for this or [...] or any previous visit (from the past 74123 hour(s)). No results found for this or any previous visit (from the past 66758 hour(s)). No results found for: VITD25 Imaging: [...] protocol implemented: No documented in this encounter [facility] 06-26-2024 Instructions Edu Aguirre MD - 06/26/2024 10:57 AM EDT Blood work and Xray today Overall we have low suspicion of autoimmune conditions but given you are having morning stiffness and pain, we will get blood work checked documented in this encounter [facility] 06-21-2024 Telephone encounter Note OARRS reviewed, Rx sent into patient's pharmacy. [facility] 06-21-2024 Miscellaneous Notes OARRS reviewed, Rx sent into patient's pharmacy. documented in this encounter [facility] 06-09-2024 Telephone encounter Note Refilled estradiol 2mg daily until appointment 12/2024. [facility] 06-09-2024 Miscellaneous Notes Refilled estradiol 2mg daily until appointment 12/2024. Last filled 11/10/23 until appt for future refills. Cancelled 04/24/24, rescheduled for 12/2024. documented in this encounter [facility] 06-09-2024 Telephone encounter Note Last filled 11/10/23 until appt for future refills. Cancelled 04/24/24, rescheduled for 12/2024. [facility] 11-19-2023 Telephone encounter Note OARRS reviewed, Rx sent into patient's pharmacy. [facility] 11-19-2023 Miscellaneous Notes OARRS reviewed, Rx sent into patient's pharmacy. documented in this encounter [facility] 11-12-2023 Telephone encounter Note OARRS reviewed, Rx sent into patient's pharmacy. [facility] 11-12-2023 Miscellaneous Notes OARRS reviewed, Rx sent into patient's pharmacy. documented in this encounter [facility] 11-04-2023 Instructions Joi Powers RN - 11/04/2023 9:45 AM EST Preoperative Education Checklist- Joints/Spine Surgery date: 12/01/23 Surgery time: 1015 a.m. Arrival time: 0815 a.m. Return between 11/22-11/30/23 to [facility] to have your last blood test drawn to check your blood type for your surgery. 1. Bring a photo ID and your insurance card with you the day of surgery. You will check in at the main lobby of the [facility]- registration desk is straight ahead as soon as you walk in. Tell them you are here for surgery. 2. If you have a Living Will/Durable Power of [employer] [facility] that is not on [...] after you have bathed. 5. No nail south korean/acrylic on at least one finger. If you are having a hand, wrist, foot, or leg surgery then ALL nail south korean and artificial/acrylic nails MUST be removed from [...] please call the Preadmission Testing office at [phone] Mon.-Fri. 7 a.m.-3 p.m. Leave a voicemail [...] blood clots, an IV, and possibly a [employer] COMMISSIONER pump and/or a NERVE BLOCK (both used [...] doctor does not round on patients at [facility] to see you while you are here [...] hospital you will [facility] who work in the hospital and they will start seeing you the morning after surgery. Therapy from your orthopedic doctor s office will begin seeing you once you are discharged from the hospital- they are not contracted to provide your treatment while you are in the hospital. You may have spoken with a project planner at your orthopedic doctor s office, but you will still review your discharge plan with our project planner from here at the hospital in [...] with your doctor. documented in this encounter [facility] 11-04-2023 Miscellaneous Notes Preoperative Education Checklist- Joints/Spine Surgery date: 12/01/23 Surgery time: 1015 a.m. Arrival time: 0815 a.m. Return between 11/22-11/30/23 to [facility] to have your last blood test drawn to check your blood type for your surgery. 1. Bring a photo ID and your insurance card with you the day of surgery. You will check in at the main lobby of the [facility]- registration desk is straight ahead as soon as you walk in. Tell them you are here for surgery. 2. If you have a Living Will/Durable Power of [employer] that is not on [...] after you have bathed. 5. No nail south korean/acrylic on at least one finger. If you are having a hand, wrist, foot, or leg surgery then ALL nail south korean and artificial/acrylic nails MUST be removed from [...] please call the Preadmission Testing office at [phone] Mon.-Fri. 7 a.m.-3 p.m. Leave a voicemail [...] blood clots, an IV, and possibly a INDUSTRIAL RELATIONS COMMISSIONER pump and/or a NERVE BLOCK (both used [...] doctor does not round on patients at [facility] to see you while you are here [...] hospital you will receive physical therapy from [facility] who work in the hospital and they will start seeing you the morning after surgery. Therapy from your orthopedic doctor s office will begin seeing you once you are discharged from the hospital- they are not contracted to provide your treatment while you are in the hospital. You may have spoken with a project planner at your orthopedic doctor s office, but you will still review your discharge plan with our project planner from here at the hospital in [...] screws in place. documented in this encounter [facility] 11-04-2023 Nurse Note Preoperative Education Checklist- Joints/Spine Surgery date: 12/01/23 Surgery time: 1015 a.m. Arrival time: 0815 a.m. Return between 11/22-11/30/23 to [facility] to have your last blood test drawn to check your blood type for your surgery. 1. Bring a photo ID and your insurance card with you the day of surgery. You will check in at the main lobby of the [facility]- registration desk is straight ahead as soon as you walk in. Tell them you are here for surgery. 2. If you have a Living Will/Durable Power of [employer] for [employer] that is not on [...] after you have bathed. 5. No nail south korean/acrylic on at least one finger. If you are having a hand, wrist, foot, or leg surgery then ALL nail south korean and artificial/acrylic nails MUST be removed from [...] please call the Preadmission Testing office at [phone] Mon.-Fri. 7 a.m.-3 p.m. Leave a voicemail [...] blood clots, an IV, and possibly a INDUSTRIAL RELATIONS COMMISSIONER pump and/or a NERVE BLOCK (both used [...] doctor does not round on patients at [facility] to see you while you are here [...] hospital. You may have spoken with a project planner at your orthopedic doctor s office, but you will still review your discharge plan with our project planner from here at the hospital in [...] to the follow-up appointment with your doctor. [facility] 11-04-2023 Nurse Note G wipes and surgical instructions reviewed. Patient verbalized understanding. Dr Abreu, anesthesia, came in and spoke with patient regarding her pain pump and surgery. Will need a general anesthesia verses a spinal due to her pump in place and back surgery with cages, rods, and screws in place. [facility] 10-12-2023 Note [id number] [facility] 10-12-2023 Note [id number] [facility] 10-12-2023 Hospital Discharge instructions Patient Education 10/12/2023 [...] SANTANA Address: [facility] [address] [place] [address]- Business (1) When: Unknown Comments:Call for any problems. [facility] 10-12-2023 Note Custom Cystoscopy ? [...] you have a fever over 100 degrees. [facility] 09-14-2023 Evaluation + Plan note Diagnostic Tests PendingUrine Cytology ([facility]) 09/14/23 [facility] 09-14-2023 Note Chief Complaint New Pt. HPI Staff Evaluation requested by Aminta CHILDERS due to Hematuria on multiple UA's. 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 [...] Will order Local anesthesia. -CT scan @ [facility] -urine today sent for cytology 2. Urinary hesitancy (R39.11: Hesitancy of micturition) Does not feel she empties completely. PVR today 0cc. Has been taking Oxybutynin ER 10mg per external provider for sweating/hot flashes for years. However for the past 6-7 mos she has had complications with hesitancy 2-3x/day. States she has to strain when she voids. LIEUTENANT COLONEL had her try taking med every other [...] (female) (male)) Admits she leaks with activity. LIEUTENANT COLONEL discussed bladder sling with her but did not mention any cystocele PO hysterectomy. Not bothersome enough to warrant surgical tx per pt. 4. Former smoker (Z87.891: Personal history of nicotine dependence) Started smoking at age 13, quit in 2014. Smoked 1-1.5 PPD. total >30 pack yrs. See #1. Follow-up With When Contact Information KATIA RASHID PA-C, URL [address] [address] 4 (more content not included)... [facility] Comment on above: Result Comment: Elec tronically [...] Follow these instructions at home: Medicines Take tyym-dyz-siesygx and prescription medicines only as told by [...] or the blood stops without treatment. Take vtgw-rum-hsxjmvk and prescription medicines only as told by your health care provider. Drink enough fluid to keep your urine pale yellow. This information is not intended to replace advice given to you by your health care provider. Make sure you discuss any questions you have with your health care provider. Document Revised: 05/28/2021 Document Reviewed: 05/28/2021 [employer] Patient Education 2022 [facility]. 09/14/2023 10:25:16 Cystoscopy Cystoscopy Cystoscopy is a [...] including vitamins, herbs, eye drops, creams, and oxsh-jps-skyihxj medicines. Any problems you or family members [...] provider tells you to take them. Taking wtxq-tsq-loxiktj medicines, vitamins, herbs, and supplements. Tests You [...] Follow these instructions at home: Medicines Take nmsy-bqs-nlxusng and prescription medicines only as told by [...] provider. Document Revised: 06/10/2022 Document Reviewed: 05/09/2021 [employer] Patient Education 2022 [facility]. Follow Up Care 07/14/2023 12:40:45 With:KATIA RASHID PA-C, URL Address: [facility] [place] [address] [phone] When: Unknown Comments:deysi cysto w/ poss UD [facility] 05-01-2023 Evaluation note Encounter Date Diagnosis Assessment [...] J01.90) Sinusitis home care material was printed [employer] Other Evaluation + Plan note No data available for this section [facility] evaluation note* Diagnosis Postlaminectomy syndrome, lumbar Postlaminectomy syndrome, lumbar region documented in this encounter [facility] Work Phone: evaluation noteNo assessment information available [facility] Work Phone: Evaluation note* Diagnosis Sleep disturbance Unspecified sleep disturbance [...] for malignant neoplasm of breast Depressive disorder ([facility]/HCC) Depressive disorder, not elsewhere classified Hot flashes [facility] Diagnosis Acute cystitis without hematuria- Primary Frequency of urination Urinary frequency Ankle swelling, left- Primary Edema, unspecified type Excessive sweating Generalized hyperhidrosis Urge incontinence of urine Urge incontinence Tension headache Systemic lupus erythematosus, unspecified (CMS/HCC) Unspecified inflammatory spondylopathy, cervical region ([facility]) Type 2 diabetes mellitus without complications (CMS/[facility]) Positive SASCHA (antinuclear antibody) Other and unspecified [...] unspecified (CMS/HCC) Unspecified inflammatory spondylopathy, cervical region (CMS/[facility]) Type 2 diabetes mellitus without complications (CMS/HCC) [...] Depressive disorder, not elsewhere classified Hot flashes Vulvar irritation- Primary Vaginal atrophy Postmenopausal atrophic vaginitis Urinary urgency Urgency of urination Post-void dribbling Hot flashes due to menopause [facility] [...] Depressive disorder, not elsewhere classified Hot flashes Systemic lupus erythematosus, unspecified SLE type, unspecified organ involvement status ([facility])- Primary [facility]* Diagnosis Acute cystitis without hematuria- Primary Frequency of urination Urinary frequency Ankle swelling, left- Primary Edema, unspecified type Excessive sweating Generalized hyperhidrosis Urge incontinence of urine Urge incontinence Tension headache Systemic lupus erythematosus, unspecified ([facility]) Unspecified inflammatory spondylopathy, cervical region ([facility]) Type 2 diabetes mellitus without complications ([facility]) Positive SASCHA (antinuclear antibody) Other and unspecified nonspecific immunological findings Encounter for well adult exam without abnormal findings- Primary Hyperlipidemia, unspecified hyperlipidemia type ([facility]) Glucose intolerance (impaired glucose tolerance) Impaired glucose tolerance test Annual physical exam Routine general medical examination at a health care facility Encounter for vaccination Encounter for screening mammogram for malignant neoplasm of breast Depressive disorder ([facility]) Depressive disorder, not elsewhere classified Hot flashes Sleep disturbance Unspecified sleep disturbance [facility] Diagnosis Acute cystitis without hematuria- Primary Frequency of urination Urinary frequency Ankle swelling, left- Primary Edema, unspecified type Excessive sweating Generalized hyperhidrosis Urge incontinence of urine Urge incontinence Tension headache Systemic lupus erythematosus, unspecified ([facility]) Unspecified inflammatory spondylopathy, cervical region ([facility]) Type 2 diabetes mellitus without complications ([facility]) Positive SASCHA (antinuclear antibody) Other and unspecified nonspecific immunological findings Encounter for well adult exam without abnormal findings- Primary Hyperlipidemia, unspecified hyperlipidemia type ([facility]) Glucose intolerance (impaired glucose tolerance) Impaired glucose tolerance test Annual physical exam Routine general medical examination at a health care facility Encounter for vaccination Encounter for screening mammogram for malignant neoplasm of breast Depressive disorder ([facility]) Depressive disorder, not elsewhere classified Hot flashes Obstructive sleep apnea Obstructive sleep apnea (adult) (pediatric) [facility]* Diagnosis Acute cystitis without hematuria- Primary Frequency of urination Urinary frequency Ankle swelling, left- Primary Edema, unspecified type Excessive sweating Generalized hyperhidrosis Urge incontinence of urine Urge incontinence Tension headache Systemic lupus erythematosus, unspecified ([facility]) Unspecified inflammatory spondylopathy, cervical region ([facility]) Type 2 diabetes mellitus without complications ([facility]) Positive SASCHA (antinuclear antibody) Other and unspecified nonspecific immunological findings Encounter for well adult exam without abnormal findings- Primary Hyperlipidemia, unspecified hyperlipidemia type (CMS/HCC) Glucose intolerance (impaired glucose tolerance) Impaired glucose tolerance test Annual physical exam Routine general medical examination at a health care facility Encounter for vaccination Encounter for screening mammogram for malignant neoplasm of breast Depressive disorder ([facility]/HCC) Depressive disorder, not elsewhere classified Hot flashes Vaginal atrophy Postmenopausal atrophic vaginitis Urinary urgency Urgency of urination Vulvar irritation Hot flashes due to menopause documented [facility]* Diagnosis Acute cystitis without hematuria- Primary Frequency of urination Urinary frequency Ankle swelling, left- Primary Edema, unspecified type Excessive sweating Generalized hyperhidrosis Urge incontinence of urine Urge incontinence Tension headache Systemic lupus erythematosus, unspecified (CMS/[facility]) Unspecified inflammatory spondylopathy, cervical region ([facility]) Type 2 diabetes mellitus without complications ([facility]) Positive SASCHA (antinuclear antibody) Other and unspecified [...] Depressive disorder, not elsewhere classified Hot flashes Fibromyalgia- Primary Unspecified myalgia and myositis Depressive disorder ([facility]/HCC) Depressive disorder, not elsewhere classified Excessive sweating Generalized hyperhidrosis Hot flashes due to menopause Tension headache [facility]* Diagnosis Acute cystitis without hematuria- Primary Frequency of urination Urinary frequency Ankle swelling, left- Primary Edema, unspecified type Excessive sweating Generalized hyperhidrosis Urge incontinence of urine Urge incontinence Tension headache Systemic lupus erythematosus, unspecified (CMS/HCC) Unspecified inflammatory spondylopathy, cervical region ([facility]) Type 2 diabetes mellitus without complications ([facility]) Positive SASCHA (antinuclear antibody) Other and unspecified nonspecific immunological findings Encounter for well adult exam without abnormal findings- Primary Hyperlipidemia, unspecified hyperlipidemia type (CMS/HCC) Glucose intolerance (impaired glucose tolerance) Impaired glucose tolerance test Annual physical exam Routine general medical examination at a health care facility Encounter for vaccination Encounter for screening mammogram for malignant neoplasm of breast Depressive disorder ([facility]/HCC) Depressive disorder, not elsewhere classified Hot flashes Right knee pain, unspecified chronicity- Primary History of total right knee replacement [facility]* Diagnosis Systemic lupus erythematosus, unspecified SLE type, unspecified organ involvement status ([facility])- Primary Positive SASCHA (antinuclear antibody) Other and unspecified nonspecific immunological findings [facility] Diagnosis Acute cystitis without hematuria- Primary Frequency of urination Urinary frequency Ankle swelling, left- Primary Edema, unspecified type Excessive sweating Generalized hyperhidrosis Urge incontinence of urine Urge incontinence Tension headache Systemic lupus erythematosus, unspecified ([facility]/HCC) Unspecified inflammatory spondylopathy, cervical region ([facility]) Type 2 diabetes mellitus without complications ([facility]) Positive SASCHA (antinuclear antibody) Other and unspecified nonspecific immunological findings Encounter for well adult exam without abnormal findings- Primary Hyperlipidemia, unspecified hyperlipidemia type ([facility]) Glucose intolerance (impaired glucose tolerance) Impaired glucose tolerance test Annual physical exam Routine general medical examination at a health care facility Encounter for vaccination Encounter for screening mammogram for malignant neoplasm of breast Depressive disorder ([facility]/HCC) Depressive disorder, not elsewhere classified Hot flashes Sleep disturbance Unspecified sleep disturbance [facility] Diagnosis Hot flashes [facility]* Diagnosis Sleep disturbance Unspecified sleep disturbance [...] incontinence Tension headache Systemic lupus erythematosus, unspecified ([facility]) Unspecified inflammatory spondylopathy, cervical region ([facility]) Type 2 diabetes mellitus without complications ([facility]) Positive SASCHA (antinuclear antibody) Other and unspecified nonspecific immunological findings Encounter for well adult exam without abnormal findings- Primary Hyperlipidemia, unspecified hyperlipidemia type ([facility]/HCC) Glucose intolerance (impaired glucose tolerance) Impaired glucose tolerance test Annual physical exam Routine general medical examination at a health care facility Encounter for vaccination Encounter for screening mammogram for malignant neoplasm of breast Depressive disorder ([facility]/HCC) Depressive disorder, not elsewhere classified Hot flashes [...] Depressive disorder, not elsewhere classified Hot flashes Chronic pain syndrome Numbness and tingling of both legs Disturbance of skin sensation [facility] [...] for malignant neoplasm of breast Depressive disorder ([facility]/HCC) Depressive disorder, not elsewhere classified Hot flashes [...] Depressive disorder, not elsewhere classified Hot flashes Sleep disturbance Unspecified sleep disturbance documented in [...] unspecified (CMS/HCC) Unspecified inflammatory spondylopathy, cervical region ([facility]/HCC) Type 2 diabetes mellitus without complications ([facility]) Positive SASCHA (antinuclear antibody) Other and unspecified nonspecific immunological findings Encounter for well adult exam without abnormal findings- Primary Hyperlipidemia, unspecified hyperlipidemia type (CMS/HCC) Glucose intolerance (impaired glucose tolerance) Impaired glucose tolerance test Annual physical exam Routine general medical examination at a health care facility Encounter for vaccination Encounter for screening mammogram for malignant neoplasm of breast Depressive disorder ([facility]/HCC) Depressive disorder, not elsewhere classified Hot flashes Depression, unspecified depression type ([facility]/HCC)- Primary Fibromyalgia Unspecified myalgia and myositis Systemic lupus erythematosus, unspecified ([facility]/HCC) Type 2 diabetes mellitus with diabetic polyneuropathy ([facility]) [facility] [...] Depressive disorder, not elsewhere classified Hot flashes Depression, unspecified depression type (CMS/HCC)- Primary Fibromyalgia Unspecified myalgia and myositis Systemic lupus erythematosus, unspecified (CMS/HCC) Type 2 diabetes mellitus with diabetic polyneuropathy (CMS/HCC) Acute non-recurrent maxillary sinusitis Sleep disturbance Unspecified sleep disturbance documented [facility]* Diagnosis Preop examination- Primary Unspecified pre-operative examination Type 2 diabetes mellitus without complication, 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 ([facility]) Preop examination Unspecified pre-operative examination Type 2 diabetes mellitus without complication, 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 ([facility]) documented in this encounter [facility] Diagnosis Acute cystitis without hematuria- Primary [...] Depressive disorder, not elsewhere classified Hot flashes Depression, unspecified depression type (CMS/HCC)- Primary Fibromyalgia Unspecified myalgia and myositis Systemic lupus erythematosus, unspecified (CMS/HCC) Type 2 diabetes mellitus with diabetic polyneuropathy (CMS/HCC) Acute non-recurrent maxillary sinusitis History of total right knee replacement- Primary Primary osteoarthritis of right knee documented in this encounter [facility]* Diagnosis Acute cystitis without hematuria- [...] for malignant neoplasm of breast Depressive disorder ([facility]/HCC) Depressive disorder, not elsewhere classified Hot flashes Depression, unspecified depression type (CMS/HCC)- Primary Fibromyalgia Unspecified myalgia and myositis Systemic lupus erythematosus, unspecified (CMS/HCC) Type 2 diabetes mellitus with diabetic polyneuropathy ([facility]) Acute non-recurrent maxillary sinusitis Moderate episode of recurrent major depressive disorder (CMS/HCC)- Primary documented in this encounter [facility]* Diagnosis Acute cystitis without hematuria- Primary Frequency of urination Urinary frequency Ankle swelling, left- Primary Edema, unspecified type Excessive sweating Generalized hyperhidrosis Urge incontinence of urine Urge incontinence Tension headache Systemic lupus erythematosus, unspecified (CMS/HCC) Unspecified inflammatory spondylopathy, cervical region ([facility]) Type 2 diabetes mellitus without complications (CMS/HCC) [...] Depressive disorder, not elsewhere classified Hot flashes Depression, unspecified depression type (CMS/HCC)- Primary Fibromyalgia Unspecified myalgia and myositis Systemic lupus erythematosus, unspecified (CMS/HCC) Type 2 diabetes mellitus with diabetic polyneuropathy (CMS/HCC) Acute non-recurrent maxillary sinusitis Gastroenteritis- Primary Other and unspecified noninfectious gastroenteritis and colitis Obstructive sleep apnea Obstructive sleep apnea (adult) (pediatric) Mild episode of recurrent major depressive disorder (HCC) (CMS/HCC) [facility]* Diagnosis Macromastia- Primary Hypertrophy of breast Thoracic spine pain Pain in thoracic spine documented in this encounter [facility]* Diagnosis Acute cystitis without hematuria- Primary Frequency of urination Urinary frequency Ankle swelling, left- Primary Edema, unspecified type Excessive sweating Generalized hyperhidrosis Urge incontinence of urine Urge incontinence Tension headache Systemic lupus erythematosus, unspecified Unspecified inflammatory spondylopathy, cervical region (CMS/HCC) Type 2 diabetes mellitus without complications Positive SASCHA (antinuclear antibody) Other and unspecified [...] Depressive disorder, not elsewhere classified Hot flashes Depression, unspecified depression type (CMS/HCC)- Primary Fibromyalgia Unspecified myalgia and myositis Systemic lupus erythematosus, unspecified Type 2 diabetes mellitus with diabetic polyneuropathy (CMS/HCC) Acute non-recurrent maxillary sinusitis Obstructive sleep apnea Obstructive sleep apnea (adult) (pediatric) Primary insomnia Persistent disorder of initiating or maintaining sleep documented in this encounter [facility] HealthcareEvaluation note* Diagnosis Acute cystitis without hematuria- Primary Frequency of urination Urinary frequency Ankle swelling, left- Primary Edema, unspecified type Excessive sweating Generalized hyperhidrosis Urge incontinence of urine Urge incontinence Tension headache Systemic lupus erythematosus, unspecified Unspecified inflammatory spondylopathy, cervical region (CMS/HCC) Type 2 diabetes mellitus without complications Positive SASCHA (antinuclear antibody) Other and unspecified [...] Depressive disorder, not elsewhere classified Hot flashes Depression, unspecified depression type (CMS/HCC)- Primary Fibromyalgia Unspecified myalgia and myositis Systemic lupus erythematosus, unspecified Type 2 diabetes mellitus with diabetic polyneuropathy ([facility]/HCC) Acute non-recurrent maxillary sinusitis Fibromyalgia Unspecified myalgia and myositis documented in this encounter [facility] HealthcareEvaluation note* Diagnosis Acute cystitis without hematuria- Primary Frequency of urination Urinary frequency Ankle swelling, left- Primary Edema, unspecified type Excessive sweating Generalized hyperhidrosis Urge incontinence of urine Urge incontinence Tension headache Systemic lupus erythematosus, unspecified Unspecified inflammatory spondylopathy, cervical region ([facility]/HCC) Type 2 diabetes mellitus without complications Positive SASCHA (antinuclear antibody) Other and unspecified nonspecific immunological findings Encounter for well adult exam without abnormal findings- Primary Hyperlipidemia, unspecified hyperlipidemia type ([facility]/HCC) Glucose intolerance (impaired glucose tolerance) Impaired glucose tolerance test Annual physical exam Routine general medical examination at a health care facility Encounter for vaccination Encounter for screening mammogram for malignant neoplasm of breast Depressive disorder ([facility]/HCC) Depressive disorder, not elsewhere classified Hot flashes Depression, unspecified depression type (CMS/HCC)- Primary Fibromyalgia Unspecified myalgia and myositis Systemic lupus erythematosus, unspecified Type 2 diabetes mellitus with diabetic polyneuropathy ([facility]) Acute non-recurrent maxillary sinusitis Sleep disturbance Unspecified sleep disturbance documented in this encounter [facility] HealthcareEvaluation note* Diagnosis Acute cystitis without hematuria- Primary Frequency of urination Urinary frequency Ankle swelling, left- Primary Edema, unspecified type Excessive sweating Generalized hyperhidrosis Urge incontinence of urine Urge incontinence Tension headache Systemic lupus erythematosus, unspecified Unspecified inflammatory spondylopathy, cervical region ([facility]) Type 2 diabetes mellitus without complications Positive SASCHA (antinuclear antibody) Other and unspecified [...] Depressive disorder, not elsewhere classified Hot flashes Depression, unspecified depression type (CMS/HCC)- Primary Fibromyalgia Unspecified myalgia and myositis Systemic lupus erythematosus, unspecified Type 2 diabetes mellitus with diabetic polyneuropathy ([facility]/HCC) Acute non-recurrent maxillary sinusitis Sleep disturbance Unspecified sleep disturbance Encounter for gynecological examination with abnormal finding Encounter for screening mammogram for malignant neoplasm of breast Vaginal atrophy Postmenopausal atrophic vaginitis Hormone replacement therapy Special screening for malignant neoplasms, vagina documented in this encounter [facility]* Diagnosis Acute cystitis without hematuria- Primary Frequency of urination Urinary frequency Ankle swelling, left- Primary Edema, unspecified type Excessive sweating Generalized hyperhidrosis Urge incontinence of urine Urge incontinence Tension headache Systemic lupus erythematosus, unspecified Unspecified inflammatory spondylopathy, cervical region (CMS/HCC) Type 2 diabetes mellitus without complications Positive SASCHA (antinuclear antibody) Other and unspecified [...] Depressive disorder, not elsewhere classified Hot flashes Depression, unspecified depression type (CMS/HCC)- Primary Fibromyalgia Unspecified myalgia and myositis Systemic lupus erythematosus, unspecified Type 2 diabetes mellitus with diabetic polyneuropathy (CMS/HCC) Acute non-recurrent maxillary sinusitis Encounter for gynecological examination with abnormal finding- Primary Encounter for screening mammogram for malignant neoplasm of breast Vaginal atrophy Postmenopausal atrophic vaginitis Hormone replacement therapy Special screening for malignant neoplasms, vagina Hot flashes due to menopause Urinary hesitancy Urinary frequency Colon cancer screening Special screening for malignant neoplasms, colon documented in this encounter [facility] HealthcareEvaluation note* Diagnosis Acute cystitis without hematuria- Primary Frequency of urination Urinary frequency Ankle swelling, left- Primary Edema, unspecified type Excessive sweating Generalized hyperhidrosis Urge incontinence of urine Urge incontinence Tension headache Systemic lupus erythematosus, unspecified Unspecified inflammatory spondylopathy, cervical region ([facility]/HCC) Type 2 diabetes mellitus without complications Positive SASCHA (antinuclear antibody) Other and unspecified nonspecific immunological findings Encounter for well adult exam without abnormal findings- Primary Hyperlipidemia, unspecified hyperlipidemia type (CMS/HCC) Glucose intolerance (impaired glucose tolerance) Impaired glucose tolerance test Annual physical exam Routine general medical examination at a health care facility Encounter for vaccination Encounter for screening mammogram for malignant neoplasm of breast Depressive disorder ([facility]/HCC) Depressive disorder, not elsewhere classified Hot flashes Depression, unspecified depression type (CMS/HCC)- Primary Fibromyalgia Unspecified myalgia and myositis Systemic lupus erythematosus, unspecified Type 2 diabetes mellitus with diabetic polyneuropathy (CMS/HCC) Acute non-recurrent maxillary sinusitis Obstructive sleep apnea- Primary Obstructive sleep apnea (adult) (pediatric) Primary insomnia Persistent disorder of initiating or maintaining sleep Bilateral lower extremity edema Fibromyalgia Unspecified myalgia and myositis Generalized anxiety disorder (CMS/HCC) Generalized anxiety disorder Mild episode of recurrent major depressive disorder (HCC) (CMS/HCC) Chronic pain syndrome Numbness and tingling of both legs Disturbance of skin sensation documented in this encounter [facility]* Diagnosis Acute cystitis without hematuria- Primary Frequency of urination Urinary frequency Ankle swelling, left- Primary Edema, unspecified type Excessive sweating Generalized hyperhidrosis Urge incontinence of urine Urge incontinence Tension headache Systemic lupus erythematosus, unspecified Unspecified inflammatory spondylopathy, cervical region (CMS/HCC) Type 2 diabetes mellitus without complications Positive SASCHA (antinuclear antibody) Other and unspecified [...] Depressive disorder, not elsewhere classified Hot flashes Depression, unspecified depression type (CMS/HCC)- Primary Fibromyalgia Unspecified myalgia and myositis Systemic lupus erythematosus, unspecified Type 2 diabetes mellitus with diabetic polyneuropathy (CMS/HCC) Acute non-recurrent maxillary sinusitis Obstructive sleep apnea Obstructive sleep apnea (adult) (pediatric) documented in this encounter [facility]* Diagnosis Acute cystitis without hematuria- Primary Frequency of urination Urinary frequency Ankle swelling, left- Primary Edema, unspecified type Excessive sweating Generalized hyperhidrosis Urge incontinence of urine Urge incontinence Tension headache Systemic lupus erythematosus, unspecified (HCC) Unspecified inflammatory spondylopathy, cervical region Type 2 diabetes mellitus without complications (HCC) Positive SASCHA (antinuclear antibody) Other and unspecified nonspecific immunological findings Encounter for well adult exam without abnormal findings- Primary Hyperlipidemia, unspecified hyperlipidemia type Glucose intolerance (impaired glucose tolerance) Impaired glucose tolerance test Annual physical exam Routine general medical examination at a health care facility Encounter for vaccination Encounter for screening mammogram for malignant neoplasm of breast Depressive disorder Depressive disorder, not elsewhere classified Hot flashes Depression, unspecified depression type- Primary Fibromyalgia Unspecified myalgia and myositis Systemic lupus erythematosus, unspecified (HCC) Type 2 diabetes mellitus with diabetic polyneuropathy (HCC) Acute non-recurrent maxillary sinusitis Primary insomnia Persistent disorder of initiating or maintaining sleep documented in this encounter [facility]* Diagnosis Acute cystitis without hematuria- Primary Frequency of urination Urinary frequency Ankle swelling, left- Primary Edema, unspecified type Excessive sweating Generalized hyperhidrosis Urge incontinence of urine Urge incontinence Tension headache Systemic lupus erythematosus, unspecified (HCC) Unspecified inflammatory spondylopathy, cervical region Type 2 diabetes mellitus without complications (HCC) Positive SASCHA (antinuclear antibody) Other and unspecified nonspecific immunological findings Encounter for well adult exam without abnormal findings- Primary Hyperlipidemia, unspecified hyperlipidemia type Glucose intolerance (impaired glucose tolerance) Impaired glucose tolerance test Annual physical exam Routine general medical examination at a health care facility Encounter for vaccination Encounter for screening mammogram for malignant neoplasm of breast Depressive disorder Depressive disorder, not elsewhere classified Hot flashes Depression, unspecified depression type- Primary Fibromyalgia Unspecified myalgia and myositis Systemic lupus erythematosus, unspecified (HCC) Type 2 diabetes mellitus with diabetic polyneuropathy (HCC) Acute non-recurrent maxillary sinusitis Obstructive sleep apnea Obstructive sleep apnea (adult) (pediatric) documented in this encounter [facility]* Diagnosis Acute cystitis without hematuria- Primary Frequency of urination Urinary frequency Ankle swelling, left- Primary Edema, unspecified type Excessive sweating Generalized hyperhidrosis Urge incontinence of urine Urge incontinence Tension headache Systemic lupus erythematosus, unspecified (HCC) Unspecified inflammatory spondylopathy, cervical region Type 2 diabetes mellitus without complications (HCC) Positive SASCHA (antinuclear antibody) Other and unspecified nonspecific immunological findings Encounter for well adult exam without abnormal findings- Primary Hyperlipidemia, unspecified hyperlipidemia type Glucose intolerance (impaired glucose tolerance) Impaired glucose tolerance test Annual physical exam Routine general medical examination at a health care facility Encounter for vaccination Encounter for screening mammogram for malignant neoplasm of breast Depressive disorder Depressive disorder, not elsewhere classified Hot flashes Depression, unspecified depression type- Primary Fibromyalgia Unspecified myalgia and myositis Systemic lupus erythematosus, unspecified (HCC) Type 2 diabetes mellitus with diabetic polyneuropathy (HCC) Acute non-recurrent maxillary sinusitis Obstructive sleep apnea Obstructive sleep apnea (adult) (pediatric) documented in this encounter [facility]* Diagnosis Acute cystitis without hematuria- Primary Frequency of urination Urinary frequency Ankle swelling, left- Primary Edema, unspecified type Excessive sweating Generalized hyperhidrosis Urge incontinence of urine Urge incontinence Tension headache Systemic lupus erythematosus, unspecified (HCC) Unspecified inflammatory spondylopathy, cervical region Type 2 diabetes mellitus without complications (HCC) Positive SASCHA (antinuclear antibody) Other and unspecified nonspecific immunological findings Encounter for well adult exam without abnormal findings- Primary Hyperlipidemia, unspecified hyperlipidemia type Glucose intolerance (impaired glucose tolerance) Impaired glucose tolerance test Annual physical exam Routine general medical examination at a health care facility Encounter for vaccination Encounter for screening mammogram for malignant neoplasm of breast Depressive disorder Depressive disorder, not elsewhere classified Hot flashes Depression, unspecified depression type- Primary Fibromyalgia Unspecified myalgia and myositis Systemic lupus erythematosus, unspecified (HCC) Type 2 diabetes mellitus with diabetic polyneuropathy (HCC) Acute non-recurrent maxillary sinusitis Sleep disturbance Unspecified sleep disturbance documented in this encounter [facility]* Diagnosis Acute cystitis without hematuria- Primary Frequency of urination Urinary frequency Ankle swelling, left- Primary Edema, unspecified type Excessive sweating Generalized hyperhidrosis Urge incontinence of urine Urge incontinence Tension headache Systemic lupus erythematosus, unspecified (HCC) Unspecified inflammatory spondylopathy, cervical region Type 2 diabetes mellitus without complications (HCC) Positive SASCHA (antinuclear antibody) Other and unspecified nonspecific immunological findings Encounter for well adult exam without abnormal findings- Primary Hyperlipidemia, unspecified hyperlipidemia type Glucose intolerance (impaired glucose tolerance) Impaired glucose tolerance test Annual physical exam Routine general medical examination at a health care facility Encounter for vaccination Encounter for screening mammogram for malignant neoplasm of breast Depressive disorder Depressive disorder, not elsewhere classified Hot flashes Depression, unspecified depression type- Primary Fibromyalgia Unspecified myalgia and myositis Systemic lupus erythematosus, unspecified (HCC) Type 2 diabetes mellitus with diabetic polyneuropathy (HCC) Acute non-recurrent maxillary sinusitis Type 2 diabetes mellitus with diabetic polyneuropathy, without long-term current use of insulin (HCC)- Primary Obstructive sleep apnea Obstructive sleep apnea (adult) (pediatric) Generalized anxiety disorder Generalized anxiety disorder Mild episode of recurrent major depressive disorder Gastroesophageal reflux disease without esophagitis Esophageal reflux Overweight (BMI 25.0-29.9) Overweight documented in this encounter [facility]* Diagnosis Acute cystitis without hematuria- Primary Frequency of urination Urinary frequency Ankle swelling, left- Primary Edema, unspecified type Excessive sweating Generalized hyperhidrosis Urge incontinence of urine Urge incontinence Tension headache Systemic lupus erythematosus, unspecified (HCC) Unspecified inflammatory spondylopathy, cervical region Type 2 diabetes mellitus without complications (HCC) Positive SASCHA (antinuclear antibody) Other and unspecified nonspecific immunological findings Encounter for well adult exam without abnormal findings- Primary Hyperlipidemia, unspecified hyperlipidemia type Glucose intolerance (impaired glucose tolerance) Impaired glucose tolerance test Annual physical exam Routine general medical examination at a health care facility Encounter for vaccination Encounter for screening mammogram for malignant neoplasm of breast Depressive disorder Depressive disorder, not elsewhere classified Hot flashes Depression, unspecified depression type- Primary Fibromyalgia Unspecified myalgia and myositis Systemic lupus erythematosus, unspecified (HCC) Type 2 diabetes mellitus with diabetic polyneuropathy (HCC) Acute non-recurrent maxillary sinusitis Chronic pain syndrome Numbness and tingling of both legs Disturbance of skin sensation documented in this encounter [facility]* Diagnosis Acute cystitis without hematuria- Primary Frequency of urination Urinary frequency Ankle swelling, left- Primary Edema, unspecified type Excessive sweating Generalized hyperhidrosis Urge incontinence of urine Urge incontinence Tension headache Systemic lupus erythematosus, unspecified (HCC) Unspecified inflammatory spondylopathy, cervical region Type 2 diabetes mellitus without complications (HCC) Positive SASCHA (antinuclear antibody) Other and unspecified nonspecific immunological findings Encounter for well adult exam without abnormal findings- Primary Hyperlipidemia, unspecified hyperlipidemia type Glucose intolerance (impaired glucose tolerance) Impaired glucose tolerance test Annual physical exam Routine general medical examination at a health care facility Encounter for vaccination Encounter for screening mammogram for malignant neoplasm of breast Depressive disorder Depressive disorder, not elsewhere classified Hot flashes Depression, unspecified depression type- Primary Fibromyalgia Unspecified myalgia and myositis Systemic lupus erythematosus, unspecified (HCC) Type 2 diabetes mellitus with diabetic polyneuropathy (HCC) Acute non-recurrent maxillary sinusitis Fibromyalgia Unspecified myalgia and myositis documented in this encounter [facility]* Diagnosis Acute cystitis without hematuria- Primary Frequency of urination Urinary frequency Ankle swelling, left- Primary Edema, unspecified type Excessive sweating Generalized hyperhidrosis Urge incontinence of urine Urge incontinence Tension headache Systemic lupus erythematosus, unspecified (HCC) Unspecified inflammatory spondylopathy, cervical region Type 2 diabetes mellitus without complications (HCC) Positive SASCHA (antinuclear antibody) Other and unspecified nonspecific immunological findings Encounter for well adult exam without abnormal findings- Primary Hyperlipidemia, unspecified hyperlipidemia type Glucose intolerance (impaired glucose tolerance) Impaired glucose tolerance test Annual physical exam Routine general medical examination at a health care facility Encounter for vaccination Encounter for screening mammogram for malignant neoplasm of breast Depressive disorder Depressive disorder, not elsewhere classified Hot flashes Depression, unspecified depression type- Primary Fibromyalgia Unspecified myalgia and myositis Systemic lupus erythematosus, unspecified (HCC) Type 2 diabetes mellitus with diabetic polyneuropathy (HCC) Acute non-recurrent maxillary sinusitis Status post total right knee replacement- Primary Acute pain of right knee documented in this encounter [facility] HealthcareEvaluation note* Diagnosis Macromastia- Primary Hypertrophy of breast Thoracic spine pain Pain in thoracic spine documented in this encounter [facility]* Diagnosis Acute cystitis without hematuria- Primary Frequency of urination Urinary frequency Ankle swelling, left- Primary Edema, unspecified type Excessive sweating Generalized hyperhidrosis Urge incontinence of urine Urge incontinence Tension headache Systemic lupus erythematosus, unspecified (HCC) Unspecified inflammatory spondylopathy, cervical region Type 2 diabetes mellitus without complications (HCC) Positive SASCHA (antinuclear antibody) Other and unspecified nonspecific immunological findings Encounter for well adult exam without abnormal findings- Primary Hyperlipidemia, unspecified hyperlipidemia type Glucose intolerance (impaired glucose tolerance) Impaired glucose tolerance test Annual physical exam Routine general medical examination at a health care facility Encounter for vaccination Encounter for screening mammogram for malignant neoplasm of breast Depressive disorder Depressive disorder, not elsewhere classified Hot flashes Depression, unspecified depression type- Primary Fibromyalgia Unspecified myalgia and myositis Systemic lupus erythematosus, unspecified (HCC) Type 2 diabetes mellitus with diabetic polyneuropathy (HCC) Acute non-recurrent maxillary sinusitis Obstructive sleep apnea Obstructive sleep apnea (adult) (pediatric) documented in this encounter [facility] HealthcareEvaluation note* Diagnosis Acute cystitis without hematuria- Primary Frequency of urination Urinary frequency Ankle swelling, left- Primary Edema, unspecified type Excessive sweating Generalized hyperhidrosis Urge incontinence of urine Urge incontinence Tension headache Systemic lupus erythematosus, unspecified (HCC) Unspecified inflammatory spondylopathy, cervical region Type 2 diabetes mellitus without complications (HCC) Positive SASCHA (antinuclear antibody) Other and unspecified nonspecific immunological findings Encounter for well adult exam without abnormal findings- Primary Hyperlipidemia, unspecified hyperlipidemia type Glucose intolerance (impaired glucose tolerance) Impaired glucose tolerance test Annual physical exam Routine general medical examination at a health care facility Encounter for vaccination Encounter for screening mammogram for malignant neoplasm of breast Depressive disorder Depressive disorder, not elsewhere classified Hot flashes Depression, unspecified depression type- Primary Fibromyalgia Unspecified myalgia and myositis Systemic lupus erythematosus, unspecified (HCC) Type 2 diabetes mellitus with diabetic polyneuropathy (HCC) Acute non-recurrent maxillary sinusitis Obstructive sleep apnea Obstructive sleep apnea (adult) (pediatric) documented in this encounter [facility]* Diagnosis Acute cystitis without hematuria- Primary Frequency of urination Urinary frequency Ankle swelling, left- Primary Edema, unspecified type Excessive sweating Generalized hyperhidrosis Urge incontinence of urine Urge incontinence Tension headache Systemic lupus erythematosus, unspecified (HCC) Unspecified inflammatory spondylopathy, cervical region Type 2 diabetes mellitus without complications (HCC) Positive SASCHA (antinuclear antibody) Other and unspecified nonspecific immunological findings Encounter for well adult exam without abnormal findings- Primary Hyperlipidemia, unspecified hyperlipidemia type Glucose intolerance (impaired glucose tolerance) Impaired glucose tolerance test Annual physical exam Routine general medical examination at a health care facility Encounter for vaccination Encounter for screening mammogram for malignant neoplasm of breast Depressive disorder Depressive disorder, not elsewhere classified Hot flashes Depression, unspecified depression type- Primary Fibromyalgia Unspecified myalgia and myositis Systemic lupus erythematosus, unspecified (HCC) Type 2 diabetes mellitus with diabetic polyneuropathy (HCC) Acute non-recurrent maxillary sinusitis Edema, unspecified type Mild episode of recurrent major depressive disorder documented in this encounter [facility]* Diagnosis Acute cystitis without hematuria- Primary Frequency of urination Urinary frequency Ankle swelling, left- Primary Edema, unspecified type Excessive sweating Generalized hyperhidrosis Urge incontinence of urine Urge incontinence Tension headache Systemic lupus erythematosus, unspecified (HCC) Unspecified inflammatory spondylopathy, cervical region Type 2 diabetes mellitus without complications (HCC) Positive SASCHA (antinuclear antibody) Other and unspecified nonspecific immunological findings Encounter for well adult exam without abnormal findings- Primary Hyperlipidemia, unspecified hyperlipidemia type Glucose intolerance (impaired glucose tolerance) Impaired glucose tolerance test Annual physical exam Routine general medical examination at a health care facility Encounter for vaccination Encounter for screening mammogram for malignant neoplasm of breast Depressive disorder Depressive disorder, not elsewhere classified Hot flashes Depression, unspecified depression type- Primary Fibromyalgia Unspecified myalgia and myositis Systemic lupus erythematosus, unspecified (HCC) Type 2 diabetes mellitus with diabetic polyneuropathy (HCC) Acute non-recurrent maxillary sinusitis Sleep disturbance Unspecified sleep disturbance documented [facility] this [facility] Diagnosis Acute cystitis without hematuria- Primary Frequency of urination Urinary frequency Ankle swelling, left- Primary Edema, unspecified type Excessive sweating Generalized hyperhidrosis Urge incontinence of urine Urge incontinence Tension headache Systemic lupus erythematosus, unspecified (HCC) Unspecified inflammatory spondylopathy, cervical region Type 2 diabetes mellitus without complications (HCC) Positive SASCHA (antinuclear antibody) Other and unspecified nonspecific immunological findings Encounter for well adult exam without abnormal findings- Primary Hyperlipidemia, unspecified hyperlipidemia type Glucose intolerance (impaired glucose tolerance) Impaired glucose tolerance test Annual physical exam Routine general medical examination at a health care facility Encounter for vaccination Encounter for screening mammogram for malignant neoplasm of breast Depressive disorder Depressive disorder, not elsewhere classified Hot flashes Depression, unspecified depression type- Primary Fibromyalgia Unspecified myalgia and myositis Systemic lupus erythematosus, unspecified (HCC) Type 2 diabetes mellitus with diabetic polyneuropathy (HCC) Acute non-recurrent maxillary sinusitis Chronic pain syndrome Numbness and tingling of both legs Disturbance of skin sensation documented in this encounter [facility] Diagnosis Acute cystitis without hematuria- Primary Frequency of urination Urinary frequency Ankle swelling, left- Primary Edema, unspecified type Excessive sweating Generalized hyperhidrosis Urge incontinence of urine Urge incontinence Tension headache Systemic lupus erythematosus, unspecified (HCC) Unspecified inflammatory spondylopathy, cervical region Type 2 diabetes mellitus without complications (HCC) Positive SASCHA (antinuclear antibody) Other and unspecified nonspecific immunological findings Encounter for well adult exam without abnormal findings- Primary Hyperlipidemia, unspecified hyperlipidemia type Glucose intolerance (impaired glucose tolerance) Impaired glucose tolerance test Annual physical exam Routine general medical examination at a health care facility Encounter for vaccination Encounter for screening mammogram for malignant neoplasm of breast Depressive disorder Depressive disorder, not elsewhere classified Hot flashes Depression, unspecified depression type- Primary Fibromyalgia Unspecified myalgia and myositis Systemic lupus erythematosus, unspecified (HCC) Type 2 diabetes mellitus with diabetic polyneuropathy (HCC) Acute non-recurrent maxillary sinusitis Obstructive sleep apnea Obstructive sleep apnea (adult) (pediatric) documented in this encounter [facility] Diagnosis Acute cystitis without hematuria- Primary Frequency of urination Urinary frequency Ankle swelling, left- Primary Edema, unspecified type Excessive sweating Generalized hyperhidrosis Urge incontinence of urine Urge incontinence Tension headache Systemic lupus erythematosus, unspecified (HCC) Unspecified inflammatory spondylopathy, cervical region Type 2 diabetes mellitus without complications (HCC) Positive SASCHA (antinuclear antibody) Other and unspecified nonspecific immunological findings Encounter for well adult exam without abnormal findings- Primary Hyperlipidemia, unspecified hyperlipidemia type Glucose intolerance (impaired glucose tolerance) Impaired glucose tolerance test Annual physical exam Routine general medical examination at a health care facility Encounter for vaccination Encounter for screening mammogram for malignant neoplasm of breast Depressive disorder Depressive disorder, not elsewhere classified Hot flashes Depression, unspecified depression type- Primary Fibromyalgia Unspecified myalgia and myositis Systemic lupus erythematosus, unspecified (HCC) Type 2 diabetes mellitus with diabetic polyneuropathy (HCC) Acute non-recurrent maxillary sinusitis Fibromyalgia Unspecified myalgia and myositis documented in this encounter [facility] N[facility]ative - Reported* Type Description Date Medical History type I diabetes Medical History fibromyalgia Medical History lupus Medical History osteoarthritis Medical History DDD/DD Medical History lyme disease Surgical History stimulator implant in back Surgical History pain pump Surgical History stimulator removal Hospitalization History see surgical hx [facility] [employer] Other Hospital Discharge instructions No data available for this section [facility] No data available for this section [facility] reason for referral (narrative)No reason for referral information availableSamaritan [facility] Work Phone: Summary Purpose Family History Unknown Family Member Name Dates Details Family history of diabetes m ellitus: Sister, Grandfather(V18.0, Z83.3) Status:Active Family history of multiple s clerosis: Sister(V17.2, Z82.0) Status:Active Family history of thyroid di sease: Mother(V18.19, Z83.49) Status:Active Family history of seizures: Father(V19.8, Z84.89) Status:Active Family history of Parkinson' s disease: Other(V17.2, Z82.0) Status:Active Relationship Condition Age at Onset Recorded Date/T stephanie sister Unknown Advance Directives Documents on File Type Date Recorded 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 Expl anation ACP-Advance Directive ACP-Power of University Intern Advance Directive Response Recorded Date/ Time Advance Directives No July 19, 2017 11:15am Reason for Referral Specialty Diagnoses / Procedures Referred By Contac t Referred To Contact Diagnoses Preop examination Type 2 diabetes mellitus without complication, 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 ([facility]) Procedures ECG 12 lead Nehal, Carlos A, DO [address] [facility] [address] [place] [address] Referral ID Status Reason Start Date Expiration Date V isits Requested Visits Authorized [id number] Pending Review 10/25/2023 10/24/2024 1 1 Specialty Diagnoses / Procedures Referred By Contac t Referred To Contact Rheumatology Diagnoses Positive SASCHA (antinuclear antibody) Systemic lupus erythematosus, unspecified SLE type, unspecified organ involvement status ([facility]) Grazyna Worley MD [address] [place] [address] [facility] ARTHRITIS [address] [place] [address] Referral ID Status Reason Start Date Expiration Date V isits Requested Visits Authorized [id number] Pending Review 06/06/2024 06/06/2025 3 3 Scheduling Instructions Please call [facility] Rheumatology to schedule an appointment at [phone]. Question Answer Patient to be evaluated for: Positive SASCHA [46] Comments No prior visits in Rheumatology Specialty Diagnoses / Procedures Referred By Contac t Referred To Contact Radiology Diagnoses Polyarthralgia Procedures XR ARTHRITIS SURVEY HAND/WRIST Rheumatology [address] [place] [address] [facility] DIAGNOSTIC RADIOLOGY [address] [place] [address] Referral ID Status Reason Start Date Expiration Date Visits Re quested Visits Authorized [id number] Closed 06/26/2024 06/26/2025 1 1 Chief Complaint and Reason for Visit Chief Complaint Admit Date Left foot pain w/o injury, bottom lip sw elling May 12, 2025 9:46am Additional Source Comments INFORMATION SOURCE (unrecogn ized section and content) DATE CREATED AUTHOR 04/06/2018 [facility] DATE CREATED AUTHOR AUTHOR'S ORGANIZ ATION 01/11/2019 [facility] DATE CREATED AUTHOR AUTHOR'S ORGANIZ ATION 01/28/2021 [facility] DATE CREATED AUTHOR AUTHOR'S ORGANIZ ATION 09/26/2021 [employer] DATE CREATED AUTHOR AUTHOR'S ORGANIZ ATION 02/08/2022 [facility] DATE CREATED AUTHOR AUTHOR'S ORGANIZ ATION 02/16/2022 [facility] DATE CREATED AUTHOR AUTHOR'S ORGANIZ ATION 11/25/[address] [facility] DATE CREATED AUTHOR AUTHOR'S ORGANIZ ATION 10/10/2023 [facility] DATE CREATED AUTHOR AUTHOR'S ORGANIZ ATION 10/16/2023 [facility] DATE CREATED AUTHOR AUTHOR'S ORGANIZ ATION 12/09/2023 [facility] DATE CREATED AUTHOR AUTHOR'S ORGANIZ ATION 07/03/2024 [facility] DATE CREATED AUTHOR AUTHOR'S ORGANIZ ATION 06/10/2025 [facility] DATE CREATED AUTHOR AUTHOR'S ORGANIZ ATION 07/06/2025 [facility] Reason for Visit (unrecogniz ed section and content) Status Reason Specialty Diagnoses / Procedures Referre d By Contact Referred To Contact Closed Radiology Diagnoses Postlaminectomy syndrome, lumbar Procedures MRI LUMBAR SPINE W WO CONTRAST MRI LUMBAR SPINE W CONTRAST Kvng Katz MD [address] [place] [address] Reason Comments Med Refill Specialty Diagnoses / Procedures Referred By Stefano li Referred To Contact Rheumatology Diagnoses Positive SASCHA (antinuclear antibody) Systemic lupus erythematosus, unspecified SLE type, unspecified organ involvement status ([facility]) Grazyna Worley MD [address] [place] [address] [facility] [address] [place] [address] Referral ID Status Reason Start Date Expiration Date V isits Requested Visits Authorized [id number] Pending Review 06/06/2024 06/06/2025 3 3 Specialty Diagnoses / Procedures Referred By Stefano li Referred To Contact Radiology Diagnoses Polyarthralgia Procedures XR ARTHRITIS SURVEY HAND/WRIST Rheumatology [address] [place] [address] [facility] DIAGNOSTIC RADIOLOGY [address] [place] [address] Referral ID Status Reason Start Date Expiration Date Visits Re quested Visits Authorized [id number] Closed 06/26/2024 06/26/2025 1 1 Reason Comments Annual Exam Medication follow up Last A1c was 5.8 Reason Comments Gynecologic Exam Pt presents for foll ow up She was started on Triamcinolone ointment for vulvar irritation, and was put on estrogen patches and states she stopped triamcinolone due to having no relief and getting sweats. She started back on oxybutynin. Patch is helping her , has a little nausea at times. Reason Comments Excessive Sweating States she is on Oxy butynin for this but does not feel like it is working very well for her anymore. Her LIEUTENANT COLONEL did switch her estradiol from a pill to a patch and that has helped some but wants to discuss different med options.The patch helped decrease hot flashes from 5 times a day down to 3 times a day Reason Comments Pain Reason Onset Date Comments Med Refill 10/12/2024 Reason Comments discuss medications Reason Comments Follow-up Reason Comments Med Refill Modafinil Reason Comments New Patient Reason Onset Date Comments Med Refill 01/22/2025 Reason Onset Date Comments Med Refill 02/22/2025 Reason Comments Gynecologic Exam Pt presents for (rs) yearly. Denies breast,bowel,petroleum sampler problems. States she feels like she has to urinate and it will take awhile for her to be able to go, at other times she feels urgency. Denies any other sx. Reason Comments Med Refill Trazodone, Modafinil Reason Onset Date Comments Med Refill 03/26/2025 Reason Onset Date Comments Med Refill 04/07/2025 Reason Comments Breast Reduction Consult Reason Onset Date Comments Med Refill 06/04/2025 Reason Comments Follow-up Controlled meds Depression Reason Onset Date Comments Med Refill 06/15/2025 Care Teams (unrecognized sec tion and content) Team Status: Active Member Role Status Dates Grazyna Worley MD Primary Care Provider Active Team Status: Inactive Member Role Status Dates Grazyna Worley MD Primary Care Provider Active River Cunha MD Attending Provider Active Laminating Machine Feeder Relationship Specialty Start Date End Date Grazyna Worley MD 112 [facility] [address] [place] [address] PCP - General Family Medicine 03/10/23 Laminating Machine Feeder Relationship Specialty Start Date End Date Grazyna Worley MD [address] [address] PCP - General Family Medicine 03/10/23 Laminating Machine Feeder Relationship Specialty Start Date End Date Grazyna Worley MD [address] [address] PCP - General Family Medicine 03/10/23 Laminating Machine Feeder Relationship Specialty Start Date End Date Edu Aguirre MD [address] [place] [address] Fellow Rheumatology 07/15/24 Laminating Machine Feeder Relationship Specialty Start Date End Date Grazyna Worley MD [address] [address] PCP - General Family Medicine 03/10/23 Laminating Machine Feeder Relationship Specialty Start Date End Date Grazyna Worley MD [address] [address] PCP - General Family Medicine 03/10/23 Laminating Machine Feeder Relationship Specialty Start Date End Date Grazyna Worley MD [address] [address] PCP - General Family Medicine 03/10/23 Laminating Machine Feeder Relationship Specialty Start Date End Date Grazyna Worley MD [address] [address] PCP - General Family Medicine 03/10/23 Laminating Machine Feeder Relationship Specialty Start Date End Date Grazyna Worley MD [address] [address] PCP - General Family Medicine 03/10/23 Laminating Machine Feeder Relationship Specialty Start Date End Date Graznya Worley MD [address] [place] [address] [place] [address] PCP - General Family Medicine 03/10/23 Laminating Machine Feeder Relationship Specialty Start Date End Date Grazyna Worley MD [address] [place] [address] [place] [address] PCP - General Family Medicine 03/10/23 Laminating Machine Feeder Relationship Specialty Start Date End Date Grazyna Worley MD [address] [facility] [address] [place] [address] PCP - General Family Medicine 03/10/23 Laminating Machine Feeder Relationship Specialty Start Date End Date Grazyna Worley MD [address] [facility] [address] [place] [address] PCP - General Family Medicine 03/10/23 Laminating Machine Feeder Relationship Specialty Start Date End Date Grazyna Worley MD [address] [facility] [address] [place] [address] PCP - General Family Medicine 03/10/23 Laminating Machine Feeder Relationship Specialty Start Date End Date Grazyna Worley MD [address] [facility] [address] [place] [address] PCP - General Family Medicine 03/10/23 Laminating Machine Feeder Relationship Specialty Start Date End Date Grazyna Worley MD [address] [place] [address] [place] [address] PCP - General Family Medicine 03/10/23 Laminating Machine Feeder Relationship Specialty Start Date End Date Grazyna Worley MD [address] [place] [address] [place] [address] PCP - General Family Medicine 03/10/23 Laminating Machine Feeder Relationship Specialty Start Date End Date Grazyna Worley MD [address] [place] [address] [place] [address] PCP - General Family Medicine 03/10/23 Laminating Machine Feeder Relationship Specialty Start Date End Date Grazyna Worley MD [address] [facility] [address] [place] [address] PCP - General Family Medicine 03/10/23 Laminating Machine Feeder Relationship Specialty Start Date End Date Grazyna Worley MD [address] [facility] [address] [place] [address] PCP - General Family Medicine 03/10/23 Laminating Machine Feeder Relationship Specialty Start Date End Date Grazyna Worley MD [address] [facility] [address] [place] [address] PCP - General Family Medicine 03/10/23 Laminating Machine Feeder Relationship Specialty Start Date End Date Grazyna Worley MD [address] [facility] [address] [place] [address] PCP - General Family Medicine 03/10/23 Laminating Machine Feeder Relationship Specialty Start Date End Date Grazyna Worley MD [address] [facility] [address] [place] [address] PCP - General Family Medicine 03/10/23 Laminating Machine Feeder Relationship Specialty Start Date End Date Grazyna Worley MD [address] [facility] [address] [place] [address] PCP - General Family Medicine 03/10/23 Laminating Machine Feeder Relationship Specialty Start Date End Date Grazyna Worley MD [address] [facility] [address] [place] [address] PCP - General Family Medicine 03/10/23 Laminating Machine Feeder Relationship Specialty Start Date End Date Grazyna Worley MD [facility] [place] [address] PCP - General Family Medicine 10/17/19 Laminating Machine Feeder Relationship Specialty Start Date End Date Grazyna Worley MD [address] [facility] [address] [place] [address] PCP - General Family Medicine 03/10/23 Laminating Machine Feeder Relationship Specialty Start Date End Date Aminta Flores PA [address] [facility] [address] [place] [address] PCP - General Physician Trend Investigator 01/02/25 Laminating Machine Feeder Relationship Specialty Start Date End Date Grazyna Worley MD [address] [facility] [address] [place] [address] PCP - General Family Medicine 03/10/23 Laminating Machine Feeder Relationship Specialty Start Date End Date Edu Aguirre MD [address] [place] [address] Fellow Rheumatology 07/15/24 Laminating Machine Feeder Relationship Specialty Start Date End Date Grazyna Worley MD [address] [facility] [address] [place] [address] PCP - General Family Medicine 03/10/23 Laminating Machine Feeder Relationship Specialty Start Date End Date Grzayna Worley MD [address] [facility] [address] [place] [address] PCP - General Family Medicine 03/10/23 Laminating Machine Feeder Relationship Specialty Start Date End Date Grazyna Worley MD [address] [facility] [address] [place] [address] PCP - General Family Medicine 03/10/23 Laminating Machine Feeder Relationship Specialty Start Date End Date Grazyna Worley MD [address] [facility] [address] [place] [address] PCP - General Family Medicine 03/10/23 Team Status: Inactive Member Role Status Dates Grazyna Worley MD Primary Care Provider Active S tart: May 12, 2025 End: May 12, 2025 LILLY Black RN CHILD C[facility] CENTER ASSISTANT DIRECTOR-C Attending Provider Active Start: May 12 End: May 12, 2025 Laminating Machine Feeder Relationship Specialty Start Date End Date Grazyna Worley MD [address] [facility] [address] [place] [address] PCP - General Family Medicine 03/10/23 Laminating Machine Feeder Relationship Specialty Start Date End Date Grazyna Worley MD [address] [facility] [address] [place] [address] PCP - General Family Medicine 03/10/23 Laminating Machine Feeder Relationship Specialty Start Date End Date Aminta Flores PA [address] [facility] [address] [place] [address] PCP - General Physician Trend Investigator 01/02/25 Laminating Machine Feeder Relationship Specialty Start Date End Date Grazyna Worley MD [address] [facility] [address] [place] [address] PCP - General Family Medicine 03/10/23 Goals (unrecognized section and content) Goals may be documented in a n alternate sectionNo Information No data available for this section No data available for this section No data available for this sectionNot on filedocumented as of this encounterGoals may be documented in an alternate section FOR RECORDS PERTAINING TO PATIENTS WHO ARE [...] BE BASED ON THE PRIMARY CLINICAL RECORDS. [facility]. provides no warranty or guarantee of the accuracy or completeness of information in this document.
--- OUTSIDE RECORDS SUMMARY | 2025-07-14 17:10 | XMS_ITS | Encounter Summary ---
Author Organization [facility] Address [address] [place] [address] Care Team Providers Care Street Cleaner Name Role Phone Nany Obrien MD Primary Care Provider [phone] Encounter Details Date Type Department Care Team (Late st Contact Info) Description 07/16/2023 Abstract [facility] [place] [facility] 112 [facility] 110 [place] [address] Nany Obrien MD 112 [facility] 110 [place] [address] Social History Tobacco Use Types Packs/Day Years [...] PM EDT [facility] [place] [facility] [address] [place] [address] [place] [address] Krystal Lamb PA [address] [place] [address] [place] [address] 08/29/2025 9:00 AM EST Office Visit [facility] [place] [facility] [address] [facility] [address] [place] [address] Krystal Lamb PA [address] [place] [address] [place] [address] 11/22/2025 9:30 AM EST Office Visit [facility] [address] [place] [phone] Vamsi Garza, BLOCK SETTER GYPSUM [address] [place] [address] 03/01/2026 10:15 AM EDT Office Visit [facility] [address] [facility] [place] [address] Amarjit Whitlock, DO [address] [facility] [address] [place] [address] documented as of this encounter Visit Diagnoses Not on filedocumented in this encounter Care Teams Street Cleaner Relationship Specialty Start Date End Date Nany Obrien MD [address] [place] [address] [place] [address] PCP - General Family Medicine 03/10/23 documented as of this encounter
--- OUTSIDE RECORDS SUMMARY | 2025-07-14 17:10 | XMS_ITS | Encounter Summary ---
Author Organization [facility] Address [address] [place] [address] Care Team Providers Care Buyer Renter Name Role Phone Nany Obrien MD Primary Care Provider [phone] Encounter Details Date Type Department Care Team (Late st Contact Info) Description 05/04/2023 Orders Only [facility] [place] [facility] [address] [place] [address] [place] [address] A, Unknown Practice [address] [place], [place] [address] Social History Tobacco Use Types Packs/Day Years [...] [facility] [place] [facility] [address] [facility] [address] [place] [phone] Krystal Lamb PA [address] [place] [address] [place] [address] 08/29/2025 9:00 AM EST Office Visit [facility] [place] [facility] [address] [facility] [address] [place] [address] Krystal Lamb PA [address] [facility] [address] [place] [address] 11/22/2025 9:30 AM EST Office Visit [facility] [address] [place] [phone] Vamsi Garza NP [address] [place], [place] [phone] 03/01/2026 10:15 AM EDT Office Visit [facility] [address] [facility] [place] [address] Amarjit Whitlock, [address] [place] [address] documented as of this encounter Procedures Procedure Name Priority Date/Time Associated Diagnosis Comments SCANNED LABS Routine 05/03/2023 1:50 PM EDT documented in this encounter Results * SCANNED LABS (05/03/2023 1:50 PM EDT) us Unknown Practice A LAB CHG PERFORMABLES Final Re sult documented in this encounter Visit Diagnoses Not on filedocumented in this encounter Care Teams Buyer Renter Relationship Specialty Start Date End Date Nany Obrien MD 112 [facility] 110 [place] [address] PCP - General Family Medicine 03/10/23 documented as of this encounter
--- OUTSIDE RECORDS SUMMARY | 2025-07-14 17:10 | XMS_ITS | Encounter Summary ---
Author Organization [facility] Address [address] [place] [address] Care Team Providers Care Can Feeder Name Role Phone Nnay Obrien MD Primary Care Provider [phone] Encounter Details Date Type Department Care Team (Late st Contact Info) Description 03/21/2025 Abstract [facility] [place] [facility] [address] [facility] 110 [place] [address] Nany Obrien MD 112 [facility] 110 [place], [place] [id number] Social History Tobacco Use Types Packs/Day Years [...] week 03/06/2025 How often do you attend [facility] or sikhism services? More than 4 times per year 03/06/2025 Do you belong to any clubs o r organizations such as bahai groups, unions, fraternal or athletic groups, or [...] Date Recorded Patient Health Questionnaire-2 Score 0 03/06/2025 [facility] - Occupational [...] place to sleep or slept in a assisted (including now)? No 11/16/2023 Housing Stability Vital Sign Answer Damon e Recorded In the last 12 months, was t here a time when you were not able to pay the mortgage or rent on time? No 03/06/2025 Number of Times Moved in the Last Year Not on fi le 03/06/2025 At any time in the past 12 m [facility], were you homeless or living in a assisted (including now)? No 03/06/2025 Comments No Sex [...] Visit [facility] [place] [address] [facility] 110 [place] [address] Krystal Lamb PA [address] [facility] 110 [place] [address] 08/29/2025 9:00 AM EST Office Visit [facility] [place] [facility] [address] [facility] 110 [place] [address] Krystal Lamb PA [address] [facility] 110 [place] [address] 11/22/2025 9:30 AM EST Office Visit [facility] [address] [place] [address] Vamsi Garza, CHANNEL MARKETING PROGRAM MANAGER [address] [facility] [place] [address] 03/01/2026 10:15 AM EDT Office Visit [facility] [place] [facility] 611 [facility] [address] Amarjit Whitlock, DO [address] [facility] 210 [place] [address] documented as of this encounter Goals Goal [...] documented as of this encounter Care Teams Can Feeder Relationship Specialty Start Date End Date Nany Obrien MD [address] [facility] 110 [place] [address] PCP - General Family Medicine 03/10/23 documented as of this encounter
--- OUTSIDE RECORDS SUMMARY | 2025-07-14 17:10 | XMS_ITS | Encounter Summary ---
Author Organization [facility] Address [address] [place] [address] Care Team Providers Care Hereditary Cancer Program Coordinator Name Role Phone Nany Obrien MD Primary Care Provider [phone] Encounter Details Date Type Department Care Team (Late st Contact Info) Description 05/14/2025 Abstract [facility] [place] [facility] 112 [facility] 110 [place] [address] Nany Obrien MD 112 [facility] 110 [place], [place] [id number] Social History Tobacco Use Types Packs/Day Years [...] How often do you attend chur or church services? More than 4 times per year [...] Recorded Patient Health Questionnaire-2 Score 0 05/07/2025 [facility] - Occupational [...] place to sleep or slept in a usp (including now)? No 11/16/2023 Housing Stability Vital Sign Answer Damon e Recorded In the last 12 months, was t here a time when you were not able to pay the mortgage or rent on time? No 03/06/2025 Number of Times Moved in the Last Year Not on fi le 03/06/2025 At any time in the past 12 m [facility], were you homeless or living in a usp (including now)? No 03/06/2025 Comments No Sex [...] Visit [facility] [place] [address] [facility] 110 [place] [address] Krystal Lamb PA [address] [facility] 110 [place] [address] 08/29/2025 9:00 AM EST Office Visit [facility] [place] [facility] [address] [facility] 110 [place] [address] Krystal Lamb PA [address] [facility] 110 [place] [address] 11/22/2025 9:30 AM EST Office Visit [facility] [address] [place] [address] Vamsi Garza, MICA INSPECTOR [address] [place] [address] 03/01/2026 10:15 AM EDT Office Visit [facility] [place] [facility] 611 [facility] [address] F [facility] [place] [address] Amarjit Whitlock, DO [address] [facility] 210 [place] [address] documented as of this encounter Goals Goal [...] documented as of this encounter Care Teams Hereditary Cancer Program Coordinator Relationship Specialty Start Date End Date Nany Obrien MD [address] [facility] 110 [place] [address] PCP - General Family Medicine 03/10/23 documented as of this encounter
--- OUTSIDE RECORDS SUMMARY | 2025-07-14 17:10 | XMS_ITS | Encounter Summary ---
Author Organization [facility] Address [address] [place] [address] Care Team Providers Care Drone Pilot Name Role Phone Nany Obrien MD Primary Care Provider [phone] Encounter Details Date Type Department Care Team (Late st Contact Info) Description 09/28/2023 Abstract [facility] [place] [facility] [address] [place] [address] [place] [address] Helen Fox NP Social History Tobacco Use Types Packs/Day Years [...] [facility] [place] [facility] [address] [facility] 110 [place] [address] Krystal Lamb PA [address] [facility] 110 [place] [address] 08/29/2025 9:00 AM EST Office Visit [facility] [place] [facility] [address] [facility] 110 [place] [address] Krystal Lamb PA [address] [facility] 110 [place] [address] 11/22/2025 9:30 AM EST Office Visit [facility] [address] [facility] [place] [address] Vamsi Garza, YVONNE [address] [place] [address] 03/01/2026 10:15 AM EDT Office Visit [facility] 611 [facility] [address] Amarjit Whitlock, DO [address] [facility] 210 [place] [address] documented as of this encounter Visit Diagnoses Not on filedocumented in this encounter Care Teams Drone Pilot Relationship Specialty Start Date End Date Nany Obrien MD [address] [facility] 110 [place] [address] PCP - General Family Medicine 03/10/23 documented as of this encounter
--- OUTSIDE RECORDS SUMMARY | 2025-07-14 17:10 | XMS_ITS | Encounter Summary ---
Author Organization [facility] Address [address] [place] [address] Care Team Providers Care Sales Representative Adding Machines Name Role Phone Nany Obrien MD Primary Care Provider [phone] Encounter Details Date Type Department Care Team (Late st Contact Info) Description 09/15/2023 Abstract [facility] [place] [facility] 112 [facility] 110 [place] [address] Nany Obrien MD 112 [facility] 110 [place] [address] Social History Tobacco Use Types Packs/Day Years [...] PM EDT Office [facility] [place] [facility] [address] [facility] 110 [place] [address] Krystal Lamb, PA [address] [place] 110 [place] [address] 08/29/2025 9:00 AM EST Office Visit [facility] [place] [facility] [address] [facility] 110 [place] [address] Krystal Lamb PA [address] [facility] 110 [place] [address] 11/22/2025 9:30 AM EST Office Visit [facility] 629 [place] [address] Vamsi Garza, SCOURING MACHINE OPERATOR 629 [place] [address] 03/01/2026 10:15 AM EDT Office Visit [facility] 611 [facility] [place] [address] Amarjit Whitlock, DO [address] [facility] 210 [place] [address] documented as of this encounter Visit Diagnoses Not on filedocumented in this encounter Care Teams Sales Representative Adding Machines Relationship Specialty Start Date End Date Nany Obrien MD [address] [facility] 110 [place] [address] PCP - General Family Medicine 03/10/23 documented as of this encounter
--- OUTSIDE RECORDS SUMMARY | 2025-07-14 17:10 | XMS_ITS | Encounter Summary ---
Author Organization [facility] Address [address] [place] [address] Care Team Providers Care Bi Developer Name Role Phone Nany Obrien MD Primary Care Provider [phone] Encounter Details Date Type Department Care Team (Late st Contact Info) Description 06/23/2023 Abstract [facility] [place] [facility] 112 [facility] 110 [place] [address] Nany Obrien MD 112 [facility] 110 [place] [address] Social History Tobacco Use Types Packs/Day Years [...] PM EDT Office Visit [facility] [place] [facility] [address] [facility] 110 [place] [address] Krystal Lamb PA [address] [facility] 110 [place] [address] 08/29/2025 9:00 AM EST Office Visit [facility] [place] [facility] [address] [facility] 110 [place] [address] Krystal Lamb PA [address] [place] 110 [place] [address] 11/22/2025 9:30 AM EST Office Visit [facility] 629 [place] [address] Vamsi Garza, CURRICULUM DEVELOPMENT SPECIALIST 629 [place] [address] 03/01/2026 10:15 AM EDT Office Visit [facility] [address] [facility] [place] [address] Amarjit Whitlock, DO [address] [facility] 210 [place] [address] documented as of this encounter Visit Diagnoses Not on filedocumented in this encounter Care Teams Bi Developer Relationship Specialty Start Date End Date Nany Obrien MD [address] [place] 110 [place] [address] PCP - General Family Medicine 03/10/23 documented as of this encounter
--- OUTSIDE RECORDS SUMMARY | 2025-07-14 17:10 | XMS_ITS | Encounter Summary ---
Author Organization [facility] Address [address] [place] [address] Care Team Providers Care Target Aircraft Technician Name Role Phone Nany Obrien MD Primary Care Provider [phone] Encounter Details Date Type Department Care Team (Late st Contact Info) Description 03/27/2024 Abstract [facility] [place] [facility] 112 [facility] 110 [place] [address] Nany Obrien MD 112 [facility] 110 [place], [place] [address] Social History Tobacco Use Types Packs/Day Years [...] How often do you attend chur or buddhist services? More than 4 times per year 11/16/2023 Do you belong to any clubs o r organizations such as confucianism groups, unions, fraternal or athletic groups, or [...] Patient Health Questionnaire-2 Score 0 03/31/2023 [facility] Occupat ional Health - [...] place to sleep or slept in a retirement (including now)? No 11/16/2023 Comments No Sex [...] Visit [facility] [place] [facility] [address] [facility] 110 [place] [address] Krystal Lamb PA [address] [facility] 110 [place] [address] 08/29/2025 9:00 AM EST Office Visit [facility] [place] [facility] [address] [facility] 110 [place] [address] Krystal Lamb PA [address] [facility] 110 [place] [address] 11/22/2025 9:30 AM EST Office Visit [facility] [address] [place] [address] Vamsi Garza, YVONNE [address] [place] [address] 03/01/2026 10:15 AM EDT Office Visit [facility] [place] [facility] 611 [facility] [place] [address] Amarjit Whitlock, [address] [facility] 210 [place] [address] documented as of this encounter Visit Diagnoses Not on filedocumented in this encounter Care Teams Target Aircraft Technician Relationship Specialty Start Date End Date Nany Obrien MD [address] [place] [address] 110 [place] [address] PCP - General Family Medicine 03/10/23 documented as of this encounter
--- OUTSIDE RECORDS SUMMARY | 2025-07-14 17:10 | XMS_ITS | Encounter Summary ---
Author Organization [facility] Address [address] [place] [address] Care Team Providers Care Sr. Consultant Name Role Phone Nany Obrien MD Primary Care Provider [phone] Encounter Details Date Type Department Care Team (Late st Contact Info) Description 02/01/2024 Abstract [facility] [place] [facility] 112 [facility] 110 [place] [address] Nany Obrien MD 112 [facility] 110 [place], [place] [address] Social History Tobacco Use Types Packs/Day Years [...] How often do you attend chur or yazidi services? More than 4 times per year 11/16/2023 Do you belong to any clubs o r organizations such as yarsani groups, unions, fraternal or athletic groups, or [...] Recorded Patient Health Questionnaire-2 Score 0 03/31/2023 [facility] Occupat ional Health - [...] place to sleep or slept in a jail (including now)? No 11/16/2023 Comments No Sex [...] [facility] [place] [facility] [address] [facility] 110 [place] [address] Krystal Lamb PA [address] [facility] 110 [place] [address] 08/29/2025 9:00 AM EST Office Visit [facility] [place] [facility] [address] [facility] 110 [place] [address] Krystal Lamb PA [address] [facility] 110 [place] [address] 11/22/2025 9:30 AM EST Office Visit [facility] [address] [place] [address] Vamsi Garza, YVONNE [address] [place] [address] 03/01/2026 10:15 AM EDT Office Visit [facility] [place] [facility] 611 [facility] [place] [address] Amarjit Whitlock, [address] [facility] 210 [place] [address] documented as of this encounter Visit Diagnoses Not on filedocumented in this encounter Care Teams Sr. Consultant Relationship Specialty Start Date End Date Nany Obrien MD [address] [place] [address] 110 [place] [address] PCP - General Family Medicine 03/10/23 documented as of this encounter
--- OUTSIDE RECORDS SUMMARY | 2025-07-14 17:10 | XMS_ITS | Clinical Summary ---
Author Organization [facility] Address [address] [place] [address] Phone Care Team Providers Care Imitation Marble Mechanic Name Role Phone Nany Obrien MD Primary Care Provider [phone] Social History Tobacco Use Types Packs/Day Years [...] of Treatment Not on file Care Teams Imitation Marble Mechanic Relationship Specialty Start Date End Date Nany Obrien MD [address] [facility] 110 [place] [address] PCP - General 09/25/21
--- OUTSIDE RECORDS SUMMARY | 2025-07-14 17:10 | XMS_ITS | Encounter Summary ---
Author Organization [facility] Address [address] [place] [address] Care Team Providers Care Director Of Quality Improvement Name Role Phone Nany Obrien MD Primary Care Provider [phone] Encounter Details Date Type Department Care Team (Late st Contact Info) Description 03/26/2023 Abstract [facility] [place] [facility] [address] [facility] 110 [place] [address] Judy Campbell NP [address] [facility] 110 [place] [address] Social History Tobacco Use Types Packs/Day Years Used Date Smoking Tobacco: Never Smokeless Tobacco: Never Comments Unknown Sex and Gender Information Value [...] Medince [address] [facility] [address] [place] [address] Krystal Lamb PA [address] [facility] 110 [place] [address] 08/29/2025 9:00 AM EST Office Visit [facility] [place] [facility] [address] [facility] 110 [place] [address] Krystal Lamb PA [address] [facility] 110 [place] [address] 11/22/2025 9:30 AM EST Office Visit [facility] 629 [facility] [address] Vamsi Garza, STRIPPING AND BOOKING MACHINE OPERATOR 629 [place], [place] [address] 03/01/2026 10:15 AM EDT Office Visit [facility] 611 [facility] [place] [address] Amarjit Whitlock, DO [address] [facility] 210 [place] [address] documented as of this encounter Visit Diagnoses Not on filedocumented in this encounter Care Teams Director Of Quality Improvement Relationship Specialty Start Date End Date Nany Obrien MD [address] [facility] 110 [place] [address] PCP - General Family Medicine 03/10/23 documented as of this encounter
--- OUTSIDE RECORDS SUMMARY | 2025-07-14 17:10 | XMS_ITS | Encounter Summary ---
Author Organization [facility] Address [address] [place] [address] Phone Care Team Providers Care [facility] Attendant Name Role Phone Nany Obrien MD Primary Care Provider [phone] Encounter Details Date Type Department Care Team (Late st Contact Info) Description 05/14/2021 Orders Only [facility] [address] [place] [address] Conversion, Onbase Social History Tobacco Use Types [...] on filedocumented in this encounter Care Teams Children'[facility] Attendant Relationship Specialty Start Date End Date Nany Obrien MD [address] [address] PCP - General 09/25/21 documented as of this encounter
--- OUTSIDE RECORDS SUMMARY | 2025-07-14 17:10 | XMS_ITS | Encounter Summary ---
Author Organization [facility] Address [address] [place] [address] Care Team Providers Care Registration Coordinator Name Role Phone Nany Obrien MD Primary Care Provider [phone] Encounter Details Date Type Department Care Team (Late st Contact Info) Description 11/27/2024 Abstract [facility] [place] [facility] 112 [facility] 110 [place] [address] Nany Obrien MD 112 [facility] 110 [place], [place] [address] Social History Tobacco Use Types Packs/Day Years [...] How often do you attend chur or methodist services? More than 4 times per year 11/16/2023 Do you belong to any clubs o r organizations such as pentecostal groups, unions, fraternal or athletic groups, or [...] Date Recorded Patient Health Questionnaire-2 Score 0 08/11/2024 [facility] Occupat ional Health - [...] place to sleep or slept in a longterm (including now)? No 11/16/2023 Comments No Sex [...] Visit [facility] [place] [facility] [address] [facility] 110 [place] [address] Krystal Lamb PA [address] [facility] 110 [place] [address] 08/29/2025 9:00 AM EST Office Visit [facility] [place] [facility] [address] [facility] 110 [place] [address] Krystal Lamb PA [address] [facility] 110 [place] [address] 11/22/2025 9:30 AM EST Office Visit [facility] [address] [place] [address] Vamsi Garza, YVONNE [address] [place], [place] [address] 03/01/2026 10:15 AM EDT Office [facility] 611 [facility] [place] [address] Amarjit Whitlock, [address] [facility] 210 [place] [address] documented as of this encounter Goals Goal [...] documented as of this encounter Care Teams Registration Coordinator Relationship Specialty Start Date End Date Nany Obrien MD [address] [place] [address] 110 [place] [address] PCP - General Family Medicine 03/10/23 documented as of this encounter
--- OUTSIDE RECORDS SUMMARY | 2025-07-14 17:10 | XMS_ITS | Encounter Summary ---
Author Organization [facility] Address [address] [place] [address] Care Team Providers Care Price Economist Name Role Phone Nany Obrien MD Primary Care Provider [phone] Encounter Details Date Type Department Care Team (Late st Contact Info) Description 03/29/2024 Abstract [facility] [place] [facility] 112 [facility] 110 [place] [address] Nany Obrien MD 112 [facility] 110 [place], [place] [address] Social History Tobacco Use Types Packs/Day Years [...] How often do you attend chur or sabianist services? More than 4 times per year 11/16/2023 Do you belong to any clubs o r organizations such as druze groups, unions, fraternal or athletic groups, or [...] Recorded Patient Health Questionnaire-2 Score 0 03/31/2023 [facility] of Occupat ional Health - Occupational [...] place to sleep or slept in a long term (including now)? No 11/16/2023 Comments No Sex [...] Visit [facility] [place] [facility] [address] [facility] 110 [place] [address] Kyrstal Lamb PA [address] [facility] 110 [place] [address] 08/29/2025 9:00 AM EST Office Visit [facility] [place] [facility] [address] [facility] 110 [place] [address] Krystal Lamb PA [address] [facility] 110 [place] [address] 11/22/2025 9:30 AM EST Office Visit [facility] [address] [place] [address] Vamsi Garza, YVONNE [address] [place] [address] 03/01/2026 10:15 AM EDT Office Visit [facility] [place] [facility] 611 [facility] [address] Amarjit Whitlock, [address] [facility] 210 [place] [address] documented as of this encounter Visit Diagnoses Not on filedocumented in this encounter Care Teams Price Economist Relationship Specialty Start Date End Date Nany Obrien MD [address] [place] [address] 110 [place] [address] PCP - General Family Medicine 03/10/23 documented as of this encounter
--- OUTSIDE RECORDS SUMMARY | 2025-07-14 17:10 | XMS_ITS | Encounter Summary ---
Author Organization [facility] Address [address] [place] [address] Care Team Providers Care Stallion Manager Name Role Phone Nany Obrien MD Primary Care Provider [phone] Encounter Details Date Type Department Care Team (Late st Contact Info) Description 05/09/2025 Abstract [facility] [place] [facility] 112 [facility] 110 [place] [address] Nany Obrien MD 112 [facility] 110 [place], [place] [phone] Social History Tobacco Use Types Packs/Day Years [...] How often do you attend chur or taoism services? More than 4 times per year 03/06/2025 Do you belong to any clubs o r organizations such as muslim groups, unions, fraternal or athletic groups, or [...] Recorded Patient Health Questionnaire-2 Score 0 05/07/2025 [facility] of Occupat [...] place to sleep or slept in a fci (including now)? No 11/16/2023 Housing Stability Vital Sign Answer Damon e Recorded In the last 12 months, was t here a time when you were not able to pay the mortgage or rent on time? No 03/06/2025 Number of Times Moved in the Last Year Not on fi le 03/06/2025 At any time in the past 12 m [facility], were you homeless or living in a fci (including now)? No 03/06/2025 Comments No Sex [...] Visit [facility] [place] [facility] [address] [facility] 110 [place] [address] Krystal Lamb PA [address] [facility] 110 [place] [address] 08/29/2025 9:00 AM EST Office Visit [facility] [place] [facility] [address] [facility] 110 [place] [address] Krystal Lamb PA [address] [facility] 110 [place] [address] 11/22/2025 9:30 AM EST Office Visit [facility] [address] [place] [phone] Vamsi Garza, CLINICAL PHARMACY TECHNICIAN 629 [place] [address] 03/01/2026 10:15 AM EDT Office Visit [facility] [place] [facility] 611 [facility] [address] F [facility] [place] [address] Amarjit Whitlock, DO [address] [facility] 210 [place] [address] documented as of this encounter Goals Goal [...] documented as of this encounter Care Teams Stallion Manager Relationship Specialty Start Date End Date Nany Obrien MD [address] [facility] 110 [place] [address] PCP - General Family Medicine 03/10/23 documented as of this encounter
--- OUTSIDE RECORDS SUMMARY | 2025-07-14 17:10 | XMS_ITS | Encounter Summary ---
Author Organization [facility] Address [address] [place] [address] Care Team Providers Care Engineering Team Supervisor Name Role Phone Nany Obrien MD Primary Care Provider [phone] Encounter Details Date Type Department Care Team (Late st Contact Info) Description 05/08/2025 Abstract [facility] [place] [facility] [address] [facility] 110 [place] [address] Nany Obrien MD 112 [facility] 110 [place], [place] [address] Social History Tobacco Use Types Packs/Day Years [...] How often do you attend chur or gnosticism services? More than 4 times per year 03/06/2025 Do you belong to any clubs o r organizations such as jain groups, unions, fraternal or athletic groups, or [...] Recorded Patient Health Questionnaire-2 Score 0 05/07/2025 [facility] of Occupat ional Health - Occupational [...] any time in the past 12 m [facility], were you homeless or living in a [...] Visit [facility] [place] [address] [facility] 110 [place] [address] Krystal Lamb PA [address] [facility] 110 [place] [address] 08/29/2025 9:00 AM EST Office Visit [facility] [place] [facility] [address] [facility] 110 [place] [address] Krystal Lamb PA [address] [facility] 110 [place] [address] 11/22/2025 9:30 AM EST Office Visit [facility] [address] [place] [phone] Vamsi Garza, INDUSTRIAL AUTOMATION SPECIALIST 629 [place] [address] 03/01/2026 10:15 AM EDT Office Visit [facility] [place] [facility] 611 [facility] [address] F [facility] [place] [address] Amarjit Whitlock, DO [address] [facility] 210 [place] [address] documented as of this encounter Goals Goal [...] documented as of this encounter Care Teams Engineering Team Supervisor Relationship Specialty Start Date End Date Nany Obrien MD [address] [facility] 110 [place] [address] PCP - General Family Medicine 03/10/23 documented as of this encounter
--- OUTSIDE RECORDS SUMMARY | 2025-07-14 17:10 | XMS_ITS | Encounter Summary ---
Author Organization [facility] Address [address] [place] [address] Care Team Providers Care Fruit Dumper Name Role Phone Nany Obrien MD Primary Care Provider [phone] Reason for Visit * Reason Onset Date Comments Med Refill 02/01/2025 Encounter Details Date Type Department Care Team (Late st Contact Info) Description 02/01/2025 Refill [facility] [place] [facility] [address] [facility] 110 [place] [address] Krystal Lamb, ALVARADO [address] [facility] 110 [place] [address] Obstructive sleep apnea Social History Tobacco Use [...] How often do you attend chur or mormonism services? More than 4 times per year [...] Date Recorded Patient Health Questionnaire-2 Score 0 12/06/2024 [facility] of Occupat ional Health - Occupational [...] * Telephone Encounter - ALVARADO Ramos - 02/01/2025 11:14 AM EDT OARRS reviewed, Rx sent into patient's pharmacy. Please let pt know that it does not seem to have triggered any prior authorization requests when I sent it in today. We will have to wait and see if we get anything from the pharmacy. documented in this encounter Plan of Treatment Upcoming Encounters Date Type Department Care Team (Late st Contact Info) Description 07/17/2025 2:00 PM EDT Office Visit [facility] [place] [facility] [address] [place] 110 [place] [address] Krystal Lamb, PA [address] [place] 110 [place] [address] 08/29/2025 9:00 AM EST Office Visit [facility] [place] [facility] [address] [place] [address] [place] [address] Krystal Lamb, PA [address] [place] 110 [place] [address] 11/22/2025 9:30 AM EST Office Visit [facility] [address] [facility] [place] [phone] Vamsi Garaz, YVONNE 629 [place] [address] 03/01/2026 10:15 AM EDT Office Visit [facility] [place] [facility] 611 [facility] [place] [address] Amarjit Whitlock, DO [address] [facility] 210 [place] [address] documented as of this encounter Goals Goal [...] documented as of this encounter Care Teams Fruit Dumper Relationship Specialty Start Date End Date Nany Obrien MD [address] [place] 110 [place] [address] PCP - General Family Medicine 03/10/23 documented as of this encounter
--- OUTSIDE RECORDS SUMMARY | 2025-07-14 17:10 | XMS_ITS | Encounter Summary ---
Author Organization [facility] Address [address] [place] [address] Care Team Providers Care Edi Programmer Analyst Name Role Phone Nany Obrien MD Primary Care Provider [phone] Reason for Visit * Reason Comments Med Refill Encounter Details Date Type Department Care Team (Late st Contact Info) Description 03/28/2023 Refill [facility] [place] [facility] [address] [place] 210 [place] [address] Amarjit Whitlock DO [address] [place] 210 [place] [address] Encounter for gynecological examination (general) (routine) without abnormal findings Social History Tobacco Use Types Packs/Day Years Used Date Smoking Tobacco: Never Smokeless Tobacco: Never AUDIT-C Answer Date Recorded Q1: How often [...] Patient Health Questionnaire-2 Score 0 03/31/2023 Comments Unknown Sex and Gender Information Value Date Recorded Sex Assigned at Female 11/22/2024 8:22 AM EST Legal Sex Female 7:21 PM EDT Gender Identity Female 11/22/2024 8:22 AM EST Sexual Orientation Not on file documented as of this encounter Functional Status * Audit-C Score Answer Date of Assessment Author 1 03/31/2023 8:58 AM EDT Antonio Cooper MA * Question Answer Date of Assessment Author Q1: How often do you have a drink containing alcohol? Monthly or less 03/31/2023 8:58 AM EDT Radha Cooper MA Q2: How many drinks containi ng alcohol do you have on a typical day when you are drinking? 1 or 2 03/31/2023 8:58 AM EDT Radha Cooper MA Q3: How often do you have si x or more drinks on one occasion? Never 03/31/2023 8:58 AM EDT Radha Cooper MA * Over the past 2 weeks, how often have you been bothered by any of the following problems? Question Answer Date of Assessment Author Little interest or pleasure in doing things Not at all 03/31/2023 9:00 AM EDRadha Marino MA Feeling down, depressed, or hopeless Not at all 03/31/2023 9:00 AM SHANNANT Radha Cooper MA Patient Health Questionnaire -2 Score 0 03/31/2023 9:00 AM EDT Radha Cooper MA documented as of this encounter Plan of Treatment Upcoming Encounters Date Type Department Care Team (Late st Contact Info) Description 07/17/2025 2:00 PM EDT Office Visit [facility] [place] [facility] [address] [facility] 110 [place] [phone] Krystal Lamb PA [address] [place] 110 [place] [address] 08/29/2025 9:00 AM EST Office Visit [facility] [place] [facility] [address] [place] [address] [place] [address] Krystal Lamb PA [address] [facility] 110 [place] [address] 11/22/2025 9:30 AM EST Office Visit [facility] [address] [place] [address] Vamsi Garza, YVONNE [address] [place] [address] 03/01/2026 10:15 AM EDT Office Visit [facility] [address] [place] [address] Amarjit Whitlock, [address] [facility] 210 [place] [address] documented as of this encounter Visit Diagnoses Diagnosis Encounter for gynecological examination (general) (routine) without abnormal findings documented in this encounter Care Teams Edi Programmer Analyst Relationship Specialty Start Date End Date Nany Obrien MD [address] [place] [address] 110 [place] [address] PCP - General Family Medicine 03/10/23 documented as of this encounter
--- OUTSIDE RECORDS SUMMARY | 2025-07-14 17:10 | XMS_ITS | Encounter Summary ---
Author Organization [facility] Address [address] [place] [address] Care Team Providers Care Call Or Contact Centre Operator Name Role Phone Nany Obrien MD Primary Care Provider [phone] Encounter Details Date Type Department Care Team (Late st Contact Info) Description 07/24/2024 Abstract [facility] [place] [facility] 112 [facility] 110 [place] [address] Nany Obrien MD 112 [facility] 110 [place], [place] [phone] Social History Tobacco Use Types Packs/Day Years [...] How often do you attend chur or bahai services? More than 4 times [...] Recorded Patient Health Questionnaire-2 Score 0 03/31/2023 [facility] of Occupat ional Health - Occupational [...] Visit [facility] [place] [facility] [address] [facility] 110 [place] [address] Krystal Lamb PA [address] [facility] 110 [place] [address] 08/29/2025 9:00 AM EST Office Visit [facility] [place] [facility] [address] [facility] 110 [place] [address] Krystal Lamb PA [address] [facility] 110 [place] [address] 11/22/2025 9:30 AM EST Office Visit [facility] [address] [place] [address] Vamsi Garza, YVONNE [address] [place] [address] 03/01/2026 10:15 AM EDT Office Visit [facility] [place] [facility] 611 [facility] [place] [address] Amarjit Whitlock, [address] [facility] 210 [place] [address] documented as of this encounter Visit Diagnoses Not on filedocumented in this encounter Care Teams Call Or Contact Centre Operator Relationship Specialty Start Date End Date Nany Obrien MD [address] [place] [address] 110 [place] [address] PCP - General Family Medicine 03/10/23 documented as of this encounter
--- OUTSIDE RECORDS SUMMARY | 2025-07-14 17:10 | XMS_ITS | Encounter Summary ---
Author Organization [facility] Address [address] [place] [address] Care Team Providers Care Professor Of Physical Education Name Role Phone Nany Obrien MD Primary Care Provider [phone] Encounter Details Date Type Department Care Team (Late st Contact Info) Description 05/03/2023 Abstract [facility] [place] [facility] 112 [facility] 110 [place] [address] Nany Obrien MD 112 [facility] 110 [place] [address] Social History Tobacco Use Types Packs/Day Years Used Date Smoking Tobacco: Never Smokeless Tobacco: Never Alcohol Use Standard Drinks/Week Comments Not Currently 0 (1 standard drink = 0.6 oz pur e alcohol) AUDIT-C Answer Date Recorded Q1: How often [...] [facility] [place] [facility] [address] [facility] 110 [place] [address] Krystal Lamb PA [address] [place] 110 [place] [address] 08/29/2025 9:00 AM EST Office Visit [facility] [place] [facility] [address] [facility] 110 [place] [address] Krystal Lamb PA [address] [place] 110 [place] [address] 11/22/2025 9:30 AM EST Office Visit [facility] 629 [facility] [place] [address] Vamsi Garza, LAWN SPECIALIST 629 [place] [address] 03/01/2026 10:15 AM EDT Office Visit [facility] [place] [facility] 611 [facility] [place] [address] Amarjit Whitlock, DO [address] [facility] 210 [place] [address] documented as of this encounter Visit Diagnoses Not on filedocumented in this encounter Care Teams Professor Of Physical Education Relationship Specialty Start Date End Date Nany Obrien MD [address] [facility] 110 [place] [address] PCP - General Family Medicine 03/10/23 documented as of this encounter
--- OUTSIDE RECORDS SUMMARY | 2025-07-14 17:11 | XMS_ITS | Encounter Summary ---
Author Organization [facility] Address [address] [place] [address] Care Team Providers Care Managing Partner Digital Content Marketing [place] Name Role Phone Nany Obrien MD Primary Care Provider [phone] Encounter Details Date Type Department Care Team (Late st Contact Info) Description 11/24/2023 Orders Only [facility] [place] [facility] [address] [place] 110 [place] [address] A, Unknown Practice [address] [place] [phone] Social History Tobacco Use Types Packs/Day Years [...] How often do you attend chur or temple services? More than 4 times per year 11/16/2023 Do you belong to any clubs o r organizations such as hinduism groups, unions, fraternal or athletic groups, or [...] Patient Health Questionnaire-2 Score 0 03/31/2023 [facility] of Occupat ional Health - [...] in a snf (including now)? No 11/16/2023 Comments No Sex [...] 2:00 PM EDT Office Visit [facility] [place] [facility] [address] [facility] 110 [place] [address] Krystal Lamb PA [address] [facility] 110 [place] [address] 08/29/2025 9:00 AM EST Office Visit [facility] [place] [facility] [address] [facility] 110 [place] [address] Krystal Lamb PA [address] [facility] 110 [place] [address] 11/22/2025 9:30 AM EST Office Visit [facility] [address]29 [facility] [place] [address] Vamsi Garza, GANG BOSS 629 [place], [place] [address] 03/01/2026 10:15 AM EDT Office Visit [facility] [address] [place] [address] Amarjit Whitlock, [address] [facility] 210 [place] [address] documented as of this encounter Procedures Procedure Name Priority Date/Time Associated Diagnosis Comments NM ANSLEY PERF SPECT REST & STR Routine 11/24/2023 3:33 PM EST documented in this encounter Results * NM ANSLEY PERF SPECT REST & STR (11/24/2023 3:33 PM EST) Anatomical Region Laterality Modality Radiographic Peggy ging us Unknown Practice A IMG XR PROCEDURES Final Resul t documented in this encounter Visit Diagnoses Not on filedocumented in this encounter Care Teams Managing Partner [employer] [place] Relationship Specialty Start Date End Date Nany Obrien MD [address] [place] [address] 110 [place] [address] PCP - General Family Medicine 03/10/23 documented as of this encounter
--- OUTSIDE RECORDS SUMMARY | 2025-07-14 17:11 | XMS_ITS | Encounter Summary ---
Author Organization [facility] Address [address] [place] [address] Care Team Providers Care Leather Seasoner Name Role Phone Nany Worley MD Primary Care Provider [phone] Encounter Details Date Type Department Care Team (Late st Contact Info) Description 11/24/2023 Clinisync Result Encounter NOMS External Department Unsolicited Krystal Flores, PA [address] [facility] 110 [place] [address] Social History Tobacco Use Types Packs/Day Years [...] week 11/16/2023 How often do you attend [facility] or restorationism services? More than 4 times per year 11/16/2023 Do you belong to any clubs o r organizations such as rastafarian groups, unions, fraternal [...] Patient Health Questionnaire-2 Score 0 03/31/2023 [facility] of Occupat ional Health [...] Visit [facility] [place] [facility] [address] [facility] 110 [place] [address] Krystal Flores PA [address] [facility] 110 [place] [address] 08/29/2025 9:00 AM EST Office Visit [facility] [place] [facility] [address] [facility] [address] [place] [address] Krystal Flores PA [address] [facility] 110 [place], [place] [address] 11/22/2025 9:30 AM EST Office Visit [facility] [place] [phone] Vamsi Garza, DITTO MACHINE OPERATOR [address] [place] [address] 03/01/2026 10:15 AM EDT Office Visit [facility] 611 [facility] [address] F [facility] [place] [address] Amarjit Whitlock, DO [address] [facility] 210 [place] [address] documented as of this encounter Procedures Procedure Name Priority Date/Time Associated Diagnosis Comments NM ELSA PERF SPECT REST STR 11/24/2023 2:45 PM EST documented in this encounter Results * NM ELSA PERF SPECT REST STR (11/24/2023 2:45 PM EST) Anatomical Region Laterality Modality Other 11/24/2023 2:45 PM EST Narrative 11/24/2023 2:45 PM EST [address] [address] Nuclear Medicine Report Signed Patient: CARMEN ELISE MR#: [id number] : 1970 Acct:[id number] Age/Sex: 53 / F ADM Date: 11/24/23 Loc: [place] Attending Dr: KRYSTAL FLORES Ordering Physician: KRYSTAL FLORES Date of Service: 11/24/23 Procedure(s): NM elsa perf SPECT rest str Accession Number(s): [id number] cc: NANY WORLEY KAREN M Patient Name: CARMEN ELISE MR#: [id number] : 1970 Exam Date: 11/24/2023 Ordering Doctor: DR KRYSTAL FLORES PA RADIOLOGY REPORT PROCEDURE: NM ELSA PERF SPECT REST STR COMPARISON: None. INDICATIONS: ABNORMAL EKG, PREPROCEDURE CARDIOVASCULAR EXAM TECHNIQUE: Exam Description: Stress/Rest two day protocol gated SPECT Rest Imagin.0 mCi Tc-99m Cardiolite IV on 11-24-2023 Stress Imaging 29.8 mCi Tc-99m Cardiolite IV on 11-24-2023 Exercise Protocol: 0.4 mg Lexiscan given IV Heart Rate (bpm): Rest: 57 Max: 85 PMHR: 50 Blood Pressure: Rest: 122/70 Max: 126/66 Symptoms: Rest and peak stress ECG findings were normal and the exercise portion of the study was normal per attending physician Dr. Lewis . For more details please see separate cardiac stress test report. FINDINGS: QUALITY OF STUDY: Excellent. PERFUSION DEFECT: None. LOCATION: N/A SIZE: N/A. SEVERITY: N/A. TYPE: N/A. WALL MOTION: Normal. LV SIZE: Normal. 120 mL. TID / TCD: None; 0.6 LVEF: Normal. Calculated EF 58%. SUMMARY: Myocardial perfusion imaging study is NORMAL. CONCLUSION: 1. Normal nuclear medicine myocardial perfusion scan. 2. Left ventricle volume approaches upper limits normal. 3. Left ventricle ejection fraction approaches lower limits of normal. Dictated by: Anival Desouza M.D. on 11/24/2023 at 14:41 Approved by: Anival Desouza M.D. on 11/24/2023 at 14:44 Dictated By: Anival Desouza M.D. Signed By: 11/24/23 1445 DD/ 1445 TD/TT: Vaccinator: Procedure Note Radiology, Radiologist, MD - 11/24/2023 [place] [address] Nuclear Medicine Report Signed Patient: CARMEN ELISE RMR#: [id number] : 1970Acct:[id number] Age/Sex: 53 / FADM Date: 11/24/23 Loc: [place] Attending Dr: KRYSTAL FLORES Ordering Physician: KRYSTAL FLORES Date of Service: 11/24/23 Procedure(s): NM elsa perf SPECT rest str Accession Number(s): [id number] cc: NANY WORLEY ; KRYSTAL FLORES Patient Name: CARMEN ELISE MR#: [id number] : 1970 Exam Date: 11/24/2023 Ordering Doctor: DR KRYSTAL FLORES PA RADIOLOGY REPORT PROCEDURE: NM ELSA PERF SPECT REST STR COMPARISON: None. INDICATIONS: ABNORMAL EKG, PREPROCEDURE CARDIOVASCULAR EXAM TECHNIQUE: Exam Description: Stress/Rest two day protocol gated SPECT Rest Imagin.0 mCi Tc-99m Cardiolite IV on 11-24-2023 Stress Imaging 29.8 mCi Tc-99m Cardiolite IV on 11-24-2023 Exercise Protocol: 0.4 mg Lexiscan given IV Heart Rate (bpm): Rest: 57 Max: 85 PMHR: 50 Blood Pressure: Rest: 122/70 Max: 126/66 Symptoms: Rest and peak stress ECG findings were normal and the exercise portion ofthe study was normal per attending physician Dr. Lewis . For more detailsplease see separate cardiac stress test report. FINDINGS: QUALITY OF STUDY: Excellent. PERFUSION DEFECT: None. LOCATION: N/A SIZE: N/A. SEVERITY: N/A. TYPE: N/A. WALL MOTION: Normal. LV SIZE: Normal. 120 mL. TID / TCD: None; 0.6 LVEF: Normal. Calculated EF 58%. SUMMARY: Myocardial perfusion imaging study is NORMAL. CONCLUSION: 1. Normal nuclear medicine myocardial perfusion scan. 2. Left ventricle volume approaches upper limits normal. 3. Left ventricle ejection fraction approaches lower limits of normal. Dictated by: Anival Desouza M.D. on 11/24/2023 at 14:41 Approved by: Anival Desouza M.D. on 11/24/2023 at 14:44 Dictated By: Anival Desouza M.D. Signed By:11/24/23 1445 DD/ 1445 TD/TT: Vaccinator: [facility] Final Result documented in this encounter Visit Diagnoses Not on filedocumented in this encounter Care Teams Leather Seasoner Relationship Specialty Start Date End Date Nany Worley MD 112 [place] [address] PCP - General Family Medicine 03/10/23 documented as of this encounter
--- OUTSIDE RECORDS SUMMARY | 2025-07-14 17:11 | XMS_ITS | Clinical Summary ---
Author Organization [employer] tem Address [facility] [id number] [address] [place] [address] Care Team Providers Care Piper Helper Name Role Phone Nany Obrien MD Primary Care Provider [phone] Allergies Active Allergy Reactions Criticality Noted Date [...] drink = 0.6 oz pur e alcohol) [facility] Utilities Answer Date Recorded In the past 12 months has th e Buildingeye, gas, oil, or water company threatened to [...] Progress Patient-Stated? Author home General Yes Ilda Frecnh LSW Note: Evaluation of progress towards goal: pt said she was up with therapy Medical Devices Implanted Type Area Health Information Provider Device Identifier Shelf Expiration Date Model / Serial / Lot Cement Bn Bio 40gm Rpl [id number] - [id number] Implanted:Qty: 1 on 12/01/2023 by Slava Calvert DO at [facility] Cement Right: Knee [employer] 03/10/2026 [id number] / NA / [id number] Persona The Personalized Knee System Cruciate Retaining Right Pps Standard Femur Implanted:Qty: 1 on 12/01/2023 by Slava Calvert DO at [facility] Orthopedic Implant Right: Knee [employer] [id number] 11/28/2032 [id number] / NA / [id number] Component Tib Kn Rt 0d E Persona Osseoti Keel - [facility] - [id number] Implanted:Qty: 1 on 12/01/2023 by Slava Calvert DO at [facility] Orthopedic Implant Right: Knee [employer] 07/02/2033 [id number] / NA / [id number] Component Ptlr 32mm Persona Alply Kn Strl Lf - Sna - [id number] Implanted:Qty: 1 on 12/01/2023 by Slava Calvert DO at [facility] Orthopedic Implant Right: Knee [employer] 08/30/2028 [id number] / NA / [id number] Insert Artc 8-11 E-F 10mm Kn Rt Vivacit-E Persona Strl - Sna - [id number] Implanted:Qty: 1 on 12/01/2023 by Slava Calvert DO at [facility] Orthopedic Implant Right: Knee [employer] 07/06/2027 [id number] / NA / [id number] Explanted Type Area Health Information Provider Device Identifier Shelf Expiration Date Model / Serial / Lot Screw Bn 35mm 6.5mm St Hip Actb Trlg Strl Rpl [id number]+32 - Sna - [id number] Explanted:Qty: 1 on 12/01/2023 by Slava Calvert DO at [facility] Screw Right: Knee [employer] 12/22/2032 [id number] / NA / [id number] Screw Bn 35mm 6.5mm St Hip Actb Trlg Strl Rpl [id number] [id number]+32 - Sna - [id number] Explanted:Qty: 1 on 12/01/2023 by Slava Calvert DO at [facility] Screw Right: Knee [employer] 01/30/2033 [id number] / NA / [id number] Guide 27mm Hx Hd Scr Srg - Sna - [id number] Explanted:Qty: 1 on 12/01/2023 by Slava Calvert DO at [facility] Screw Right: Knee [employer] 06/13/2033 [id number] / NA / [id number] Guide 27mm Hx Hd Scr Srg - Sna - [id number] Explanted:Qty: 1 on 12/01/2023 by Slava Calvert, DO at [facility] Screw Right: Knee [employer] 06/08/[id number] / NA / [id number] Screw Gd 48mm Qd-Spr Hex Hd Mis Strl - Sna - [id number] Explanted:Qty: 1 on 12/01/2023 by Slava Calvert, DO at [facility] Screw Right: Knee [employer] 09/14/203359-9246-966-48 / NA / [id number] Screw Gd 48mm Qd-Spr Hex Hd Mis Strl - Sna - [id number] Explanted:Qty: 1 on 12/01/2023 by Slava Calvert, DO at [facility] Screw Right: Knee [employer] 09/15/203368-5109-518-48 / NA / [id number] Insurance [facility] MEDIC[facility] Advance Directives * Full Code (Latest Code Status on File) Date Activated Date Inactivated Comments 12/01/2023 7:06 AM 12/02/2023 3:34 PM Care Teams Piper Helper Relationship Specialty Start Date End [place] [address] [place] [address] PCP - General Family Medicine 10/17/19
--- OUTSIDE RECORDS SUMMARY | 2025-07-14 17:11 | XMS_ITS | Encounter Summary ---
Author Organization [facility] Address [address] [place] [address] Care Team Providers Care Theater Set Production Designer Name Role Phone Nany Obrien MD Primary Care Provider [phone] Encounter Details Date Type Department Care Team (Late st Contact Info) Description 11/25/2023 [facility] [place] [facility] [address] [email or web address] [address] [place] [phone] Krystal Lamb PA [address] [facility] [address] [place] [address] Preop examination; Abnormal ECG Social History Tobacco Use Types Packs/Day Years [...] How often do you attend chur or confucianism services? More than 4 times per year 11/16/2023 Do you belong to any clubs o r organizations such as holiness groups, unions, fraternal or athletic groups, or [...] Recorded Patient Health Questionnaire-2 Score 0 03/31/2023 [facility] - [...] place to sleep or slept in a correction (including now)? No 11/16/2023 Comments No Sex [...] Visit [facility] [place] [facility] [address] [email or web address] [address] [place] [address] Krystal Lamb PA [address] [facility] [address] [place] [address] 08/29/2025 9:00 AM EST Office Visit [facility] [place] [facility] [address] [facility] [address] [place] [address] Krystal Lamb PA [address] [facility] [address] [place] [address] 11/22/2025 9:30 AM EST Office Visit [facility] [address] [place] [address] Vamsi Garza NP [address] [place], [place] [phone] 03/01/2026 10:15 AM EDT Office Visit [facility] [address] [facility] [place] [address] Amarjit Whitlock, DO [address] [facility] [address] [place] [address] documented as of this encounter Visit Diagnoses Diagnosis Preop examination Unspecified pre-operative examination Abnormal ECG Nonspecific abnormal electrocardiogram (ECG) (EKG) documented in this encounter Care Teams Theater Set Production Designer Relationship Specialty Start Date End Date Nany Obrien MD [address] [place] [address] [address] [place] [address] PCP - General Family Medicine 03/10/23 documented as of this encounter
--- OUTSIDE RECORDS SUMMARY | 2025-07-14 17:11 | XMS_ITS | Encounter Summary ---
Author Organization [facility] Address [address] [place] [address] Care Team Providers Care Truck Shop Mechanic Name Role Phone Nany Obrien MD Primary Care Provider [phone] Reason for Visit * Reason Comments Med Refill Encounter Details Date Type Department Care Team (Late st Contact Info) Description 12/03/2023 Refill [facility] [address] [place] [address] Slava Calvert, DO [address] [place] [address] [place] [address] Arthritis of right knee Social History Tobacco [...] often do you attend chur ch or taoist services? More than 4 times per year 11/16/2023 Do you belong to any clubs o r organizations such as yarsanism groups, unions, fraternal or athletic groups, or [...] Recorded Patient Health Questionnaire-2 Score 0 03/31/2023 [facility] Occup[facility] ional Health - Occupational [...] place to sleep or slept in a detention (including now)? No 11/16/2023 Comments No Sex and Gender Information Value Date Recorded Sex Assigned at Female 11/22/2024 8:22 AM EST Legal Sex Female 7:21 PM EDT Gender Identity Female 11/22/2024 8:22 AM EST Sexual Orientation Not on file documented as of this encounter Miscellaneous Notes * Telephone Encounter - Vamsi Garza NP - 12/06/2023 11:09 AM EST Does not need refill documented in this encounter Plan of Treatment Upcoming Encounters Date Type Department Care Team (Late st Contact Info) Description 07/17/2025 2:00 PM EDT Office Visit [facility] [place] [facility] [address] [place] [address] [place] [address] Krystal Lamb PA [address] [place] [address] [place] [address] 08/29/2025 9:00 AM EST Office Visit [facility] [place] [facility] [address] [facility] [address] [place] [address] Krystal Lamb PA [address] [facility] 110 [place] [address] 11/22/2025 9:30 AM EST Office Visit [facility] [address] [place] [address] Vamsi Garza, GEROPSYCHOLOGIST [address] [place] [address] 03/01/2026 10:15 AM EDT Office Visit [facility] [address] [facility] [place] [place] [address] Amarjit Whitlock, DO [address] [facility] [address] [place] [address] documented as of this encounter Visit Diagnoses Diagnosis Arthritis of right knee documented in this encounter Care Teams Truck Shop Mechanic Relationship Specialty Start Date End Date Nany Obrien MD [address] [facility] 110 [place] [address] PCP - General Family Medicine 03/10/23 documented as of this encounter
--- OUTSIDE RECORDS SUMMARY | 2025-07-14 17:11 | XMS_ITS | Encounter Summary ---
Author Organization [facility] Address [address] [place] [address] Care Team Providers Care Drafter Commercial Name Role Phone Nany Obrien MD Primary Care Provider [phone] Encounter Details Date Type Department Care Team (Late st Contact Info) Description 11/15/2023 Orders Only [facility] [place] [facility] [address] [place] [address] [place] [address] A, Unknown Practice [address] [phone] Social History Tobacco Use Types Packs/Day Years [...] How often do you attend chur or yarsani services? More than 4 times per year 11/16/2023 Do you belong to any clubs o r organizations such as yazdanism groups, unions, fraternal or athletic groups, or [...] Recorded Patient Health Questionnaire-2 Score 0 03/31/2023 [facility] Occupat ional Health - Occupational Stress [...] place to sleep or slept in a custodial (including now)? No 11/16/2023 Comments No Sex and Gender Information Value Date Recorded Sex Assigned at Female 11/22/2024 8:22 AM EST Legal Sex Female 7:21 PM EDT Gender Identity Female 11/22/2024 8:22 AM EST Sexual Orientation Not on file documented as of this encounter Functional Status * Audit-C Score Answer Date of Assessment Author 0 11/16/2023 5:20 AM EST Mychart, Generic * Q1: How often do you have a drink containing alcohol? Answer Date of Assessment Author Never 11/16/2023 5:20 AM EST Mychart, Generic * Q2: How many drinks containing alcohol do you have on a typical day when you are drinking? Answer Date of Assessment Author Patient does not drink 11/16/2023 5:20 AM EST My chart, Generic * Q3: How often do you have six or more drinks on one occasion? Answer Date of Assessment Author Never 11/16/2023 5:20 AM EST Mychart, Generic documented as of this encounter Plan of Treatment Upcoming Encounters Date Type Department Care Team (Late st Contact Info) Description 07/17/2025 2:00 PM EDT Office Visit [facility] [place] [facility] [address] [place] [address] [place] [address] Krystal Lamb, PA [address] [facility] [address] [place] [address] 08/29/2025 9:00 AM EST Office Visit [facility] [place] [facility] [address] [facility] [address] [place] [address] Krystal Lamb, PA [address] [facility] [address] [place] [address] 11/22/2025 9:30 AM EST Office Visit [facility] [address] [place] [address] Vamsi Garza, YVONNE [address] [place], [place] [address] 03/01/2026 10:15 AM EDT Office Visit [facility] [address] [facility] [place] [address] Amarjit Whitlock, DO [address] [place] [address] [place] [address] documented as of this encounter Procedures Procedure Name Priority Date/Time Associated Diagnosis Comments ELECTROCARDIOGRAM REPORT Routine 024 1:16 PM EST documented in this encounter Results * Electrocardiogram Report (11/04/2023 1:16 PM EST) us Unknown Practice A IN CLINIC/BEDSIDE ORDERABLES Final Result documented in this encounter Visit Diagnoses Not on filedocumented in this encounter Care Teams Drafter Commercial Relationship Specialty Start Date End Date Nany Obrien MD [address] [facility] [address] [place] [address] PCP - General Family Medicine 03/10/23 documented as of this encounter
--- OUTSIDE RECORDS SUMMARY | 2025-07-14 17:11 | XMS_ITS | Encounter Summary ---
Author Organization [facility] Address [address] [place] [address] Care Team Providers Care Credit Product Analyst Name Role Phone Nany Obrien MD Primary Care Provider [phone] Encounter Details Date Type Department Care Team (Late st Contact Info) Description 08/29/2023 Abstract [facility] [place] [facility] [address] [place] [place] [address] Helen Fox NP Social History Tobacco Use Types Packs/Day Years Used Date Smoking Tobacco: Former Cigarettes Q uit: 2014 Smokeless Tobacco: Never Tobacco Cessation:Counseling Given: Not Answered Alcohol Use Standard Drinks/Week Comments Not Currently [...] [place] [facility] [address] [facility] [address] [place] [address] Krystal Lamb PA [address] [place] [address] [place] [address] 08/29/2025 9:00 AM EST Office Visit [facility] [place] [facility] [address] [facility] [address] [place] [address] Krystal Lamb PA [address] [place] [address] [place] [address] 11/22/2025 9:30 AM EST Office Visit [facility] [address] [facility] [place] [address] Vamsi Garza, EXECUTIVE ADMIN [address] [place] [address] 03/01/2026 10:15 AM EDT Office Visit [facility] [address] [facility] [address] Amarjit Whitolck, DO [address] [facility] [address] [place] [address] documented as of this encounter Visit Diagnoses Not on filedocumented in this encounter Care Teams Credit Product Analyst Relationship Specialty Start Date End Date Nany Obrien MD [address] [facility] [address] [place] [address] PCP - General Family Medicine 03/10/23 documented as of this encounter
--- NOTE | 2025-07-14 17:22 | ED.GENADUL1 ---
HPI HPI - General Adult General Chief complaint: Skin/Abscess/Foreign Body Stated complaint: LUMPS ON RIGHT ARM Time Seen by Provider: 07/14/25 17:10 Source: patient Mode of arrival: walk-in Limitations: no limitations History of Present Illness HPI narrative: Patient is a 55-year-old female that presents to the emergency department with complaints of a new lump that appeared on the medial aspect of her right arm near her medial epicondyle and down into the forearm that she describes as spongy . This just appeared today. Her father has a clotting disorder, she cannot remember the name, and a family member had told her to present to the ER to make sure she did not have a blood clot. She denies any history of previous DVT or PE. She has not had any previous surgery. She does use an estrogen patch. She denies ever being tested for any hematologic disorders. Related Data Home Medications ?Medication ?Instructions ?Recorded ?Confirmed brexpiprazole 0.5 mg tablet 0.5 mg PO DAILY 07/14/25 07/14/25 (Rexulti) bupropion HCl 200 mg tablet,12 hr 200 mg PO Q12H 07/14/25 07/14/25 sustained-release celecoxib 200 mg capsule 200 mg PO Q12H 07/14/25 07/14/25 clonazepam 1 mg tablet 0.5 mg PO BEDTIME 07/14/25 07/14/25 estradiol 0.1 mg/24 hr semiweekly 1 patch topical .weekly 07/14/25 07/14/25 transdermal patch furosemide 40 mg tablet 40 mg PO Q12H 07/14/25 07/14/25 modafinil 200 mg tablet 200 mg PO DAILY 07/14/25 07/14/25 oxybutynin chloride 15 mg 15 mg PO DAILY 07/14/25 07/14/25 tablet,extended release 24 hr pain pump 1 unit transdermal CONT 07/14/25 07/14/25 pantoprazole 40 mg tablet,delayed 40 mg PO DAILY 07/14/25 07/14/25 release pregabalin 200 mg capsule 200 mg PO Q8H 07/14/25 07/14/25 tizanidine 4 mg tablet 4 mg PO DAILY PRN headache 07/14/25 07/14/25 tramadol 50 mg tablet 50 mg PO Q12H 10/04/25 10/04/25 trazodone 150 mg tablet 200 mg PO BEDTIME 07/14/25 07/14/25 Allergies Allergy/AdvReac Type Severity Reaction Status Date / Time hydromorphone (From Dilaudid) Allergy Intermediate Headache Verified 07/14/25 17:04 Review of Systems ROS Status of ROS 10 or more systems reviewed and unremarkable except as noted in history and below PFSH PFSH Social History Little interest or pleasure in doing things: not at all Feeling down, depressed, or hopeless: not at all Exam Narrative Exam Narrative: General: No distress, age-appropriate Skin: Warm, dry, no pallor. No rash. Head: Normocephalic, atraumatic. Neck: Supple, non-tender. Eye: Pupils are equal, round and EOMI. No scleral icterus. Ears, Nose, Mouth, and Throat: No nasal mucosal hypertrophy. Oral mucosa is moist, no posterior oropharynx erythema, uvula is mid-line Cardiovascular: Regular Rate and Rhythm without murmur, gallop or rub. Respiratory: No accessory muscle use or respiratory distress. Lungs are clear to auscultation, no wheezing, rales or rhonchi Chest Wall: no tenderness Back: No midline thoracic or lumbar vertebral tenderness. Musculoskeletal: Full ROM of all extremities, no calf or popliteal tenderness. On the right forearm there is no appreciable induration, fluctuance, or palpable cord. There is tenderness with palpation of the medial epicondyle/flexor tendon group. There is no extremity swelling. There is no erythema. There is 2+ radial pulse palpated. 5/5 strength bilateral upper extremities. GI: Abdomen is soft, non-distended, non tender to palpation. No masses appreciated. No rebound, guarding, or rigidity noted. Neurological: A&O x4. No cranial nerve dysfunction observed. No truncal ataxia. Moves all extremities. Sensation intact. Psychiatric: Cooperative and interactive. Normal mood and affect. Constitutional Vital Signs, click to edit/add: Last Vital Signs Temp 98.6 F 07/14/25 17:04 Pulse 61 07/14/25 17:04 Resp 16 07/14/25 17:04 BP 104/54 07/14/25 17:04 Pulse Ox 93 L 07/14/25 17:04 O2 Del Method Room Air 07/14/25 17:04 Documenting provider has reviewed patient's vital signs: yes Course Vital Signs Vital signs: Vital Signs Temperature 98.6 F 07/14/25 17:04 Pulse Rate 61 07/14/25 17:04 Respiratory Rate 16 07/14/25 17:04 Blood Pressure 104/54 07/14/25 17:04 Pulse Oximetry 93 L 07/14/25 17:04 Oxygen Delivery Method Room Air 07/14/25 17:04 Temperature 98.6 F 07/14/25 17:04 Pulse Rate 61 07/14/25 17:04 Respiratory Rate 16 07/14/25 17:04 Blood Pressure 104/54 07/14/25 17:04 Pulse Oximetry 93 L 07/14/25 17:04 Oxygen Delivery Method Room Air 07/14/25 17:04 Medical Decision Making MDM Narrative Medical decision making narrative: This is a 55-year-old female that had presented to the emergency department with complaints of a lump or spongy feeling on the medial ventral portion just inferior to her elbow. She denies any injury or preceding event and noticed this lump today. Her family urged her to come get evaluated as her father has a history of some hematologic condition that she is unsure of the name. She denies ever being diagnosed with this same condition. She has been recently diagnosed with anemia and states that her last hemoglobin was 9 checked about 5 days ago. She denies any previous injury of PE/DVT, denies recent surgery, denies prolonged immobilization of the right upper extremity, denies trauma, but does used an estrogen patch. She denies any recent blood draws from this arm. Differential diagnosis: Upper extremity DVT Superficial thrombophlebitis Medial epicondylitis (Golfer?s elbow) Lymphadenopathy Soft tissue mass (e.g., lipoma, ganglion cyst) On arrival patient is in no distress, there is no unilateral swelling, warmth, or erythema of the right upper extremity. Vitals are stable. Patient is afebrile at 98.6. She is not short of breath, denies chest or abdominal pain. CBC/BMP/D-dimer/PT/INR/PTT ordered. No signs of superficial venous thrombosis or DVT were observed. Distal pulses and neurovascular exam were intact. There were no signs or symptoms suggestive of PE (no chest pain, shortness of breath, or leg swelling). Labs: CBC with anemia as below BMP within normal limits PT/INR and PTT: also within normal limits, suggesting no active coagulopathy Given her estrogen use and family history, a D-dimer was obtained and was within normal limits, lowering the pre-test probability of DVT. No ultrasound was performed, as there was no clinical evidence of thrombosis and low pretest probability supported by a negative D-dimer. Labs discussed with patient and all questions were answered. Right arm pain - Neg D-Dimer, no active coagulopathy - At this time, symptoms are most consistent with a musculoskeletal cause, such as medial epicondylitis or ulnar nerve irritation, rather than thrombotic disease or soft tissue mass. There is no evidence of infection, hematoma, or vascular compromise. -Recommended activity modification, NSAIDs OTC, and ice -Patient has follow-up already with PCP, if symptoms worsen or she experiences new symptoms she can return to the emergency department. Anemia - Hgb 9.3, stable from patient reported hemoglobin from this Wednesday 9, known to her, starting iron treatment. - Follow-up with PCP. Lab Data Lab results reviewed: Yes I reviewed the patient's lab results Labs: Lab Results 07/14/25 Range/Units 17:40 WBC 6.6 (4.0-11.0) 10^3/uL RBC 3.49 L (4.20-5.40) 10^6/uL Hgb 9.3 L (12.0-16.0) g/dL Hct 28.5 L (36.0-48.0) % MCV 81.7 (81.0-99.0) fL MCH 26.6 L (26.7-34.0) pg MCHC 32.6 (29.9-35.2) g/dL RDW 15.9 H (11.0-15.0) % Plt Count 222 (150-450) 10^3/uL MPV 9.4 L (9.5-13.5) fL Neut % (Auto) 54.1 (43.0-75.0) % Lymph % (Auto) 31.3 (20.5-60.0) % Meade % (Auto) 11.6 (1.7-12.0) % Eos % (Auto) 1.4 (0.9-7.0) % Baso % (Auto) 0.8 (0.2-2.0) % Neut # (Auto) 3.6 (1.4-6.5) 10^3/uL Lymph # (Auto) 2.1 (1.2-3.8) 10^3/uL Meade # (Auto) 0.8 (0.3-0.8) 10^3/uL Eos # (Auto) 0.1 (0.0-0.7) 10^3/uL Baso # (Auto) 0.1 (0.0-0.1) 10^3/uL Abs Immat Gran (auto) 0.05 H (0.00-0.03) 10^3/uL Imm/Tot Granulo (auto) 0.8 H (0.0-0.5) % PT 10.9 (9.0-11.6) sec INR 1.03 APTT 31.4 (22.3-36.2) sec D-Dimer 0.32 (<=0.59) mg/L FEU Sodium 138 (136-145) mmol/L Potassium 4.0 (3.5-5.1) mmol/L Chloride 102 (98-107) mmol/L Carbon Dioxide 31.7 (21.0-32.0) mmol/L Anion Gap 8.3 BUN 15.0 (7.0-18.0) mg/dL Creatinine 0.67 (0.55-1.02) mg/dL Est GFR ( Amer) >60 (>=60 mL/min/1.73m^2) Est GFR (Non-Af Amer) >60 (>=60 mL/min/1.73m^2) BUN/Creatinine Ratio 22.4 Glucose 107 H (74-106) mg/dL Calcium 8.8 (8.5-10.1) mg/dL Total Bilirubin 0.2 (0.2-1.0) mg/dL AST 11 L (15-37) U/L ALT 16 (14-59) U/L Alkaline Phosphatase 64 (46-116) U/L Total Protein 6.8 (6.4-8.2) g/dL Albumin 3.3 L (3.4-5.0) g/dL Globulin 3.5 g/dL Albumin/Globulin Ratio 0.9 Discharge Plan Discharge Chief Complaint: Skin/Abscess/Foreign Body Clinical Impression: Arm pain Patient Disposition: Home, Self-Care Time of Disposition Decision: 18:20 Condition: Good Mode of Transportation: Private Vehicle Prescriptions / Home Meds: No Action Rexulti 0.5 mg tablet 0.5 mg PO DAILY bupropion HCl 200 mg tablet sustained-release 12 hr 200 mg PO Q12H celecoxib 200 mg capsule 200 mg PO Q12H clonazepam 1 mg tablet 0.5 mg PO BEDTIME estradiol 0.1 mg/24 hr patch semiweekly 1 patch topical .weekly furosemide 40 mg tablet 40 mg PO Q12H modafinil 200 mg tablet 200 mg PO DAILY oxybutynin chloride 15 mg tablet extended release 24hr 15 mg PO DAILY pantoprazole 40 mg tablet,delayed release (DR/EC) 40 mg PO DAILY pregabalin 200 mg capsule 200 mg PO Q8H tizanidine 4 mg tablet 4 mg PO DAILY PRN (Reason: headache) tramadol 50 mg tablet 50 mg PO Q12H trazodone 150 mg tablet 200 mg PO BEDTIME pain pump 1 unit transdermal CONT Rx Instructions: baclofen, hydromorphone, clonapine Print Language: Mohawk Instructions: Arm Pain (ED) Additional Instructions: Low suspicion for clot based on history, exam, and normal D-dimer Conservative management: Ice, NSAIDs, activity modification Primary care follow-up for anemia (Hgb 9.3 today) and symptom monitoring No imaging warranted at this time given benign exam and negative workup Please return to the Emergency Department or seek immediate medical attention if you experience any of the following: Increased swelling, redness, or warmth of the right arm A new or enlarging lump in the arm Severe or worsening pain in the arm that is not relieved by qavx-wkr-treobxg medications Numbness, tingling, or weakness in the arm, hand, or fingers Shortness of breath, chest pain, or rapid heartbeat (could indicate a blood clot in the lungs) Swelling or pain in your legs Fever or chills Dizziness, lightheadedness, fatigue, or other signs of worsening anemia Any other new or concerning symptoms Referrals: GRAZYNA WORLEY [Primary Care Provider, Family Practice] - 1 week
--- NOTE | 2025-07-14 17:30 | PC.NURSE ---
pt is concerned for blood clot there is no visible redness or swelling in area
[2025-07-14 17:47] LABS: Hematocrit 28.5 % (36.0-48.0); Hemoglobin 9.3 g/dL (12.0-16.0); Immature Granulocytes Abs Auto 0.05 10^3/uL (0.00-0.03); Immature Granulocytes Pct Auto 0.8 % (0.0-0.5); Lymphocytes Absolute Auto 2.1 10^3/uL (1.2-3.8); Mean Corpuscular HGB Conc 32.6 g/dL (29.9-35.2); Mean Corpuscular Hemoglobin 26.6 pg (26.7-34.0); Mean Corpuscular Volume 81.7 fL (81.0-99.0); Platelet Count 222 10^3/uL (150-450); Red Blood Count 3.49 10^6/uL (4.20-5.40); White Blood Count 6.6 10^3/uL (4.0-11.0)
[2025-07-14 18:02] LABS: INR 1.03; Partial Thromboplastin Time 31.4 sec (22.3-36.2); Prothrombin Time 10.9 sec (9.0-11.6)
[2025-07-14 18:03] LABS: Alanine Aminotransferase 16 U/L (14-59); Albumin Globulin Ratio 0.9; Albumin Level 3.3 g/dL (3.4-5.0); Alkaline Phosphatase 64 U/L (46-116); Anion Gap 8.3; Aspartate Amino Transferase 11 U/L (15-37); Blood Urea Nitrogen 15.0 mg/dL (7.0-18.0); Calcium 8.8 mg/dL (8.5-10.1); Carbon Dioxide 31.7 mmol/L (21.0-32.0); Chloride 102 mmol/L (98-107); Estimated GFR (African America >60 (>=60 mL/min/1.73m^2); Estimated GFR (Non-African Ame >60 (>=60 mL/min/1.73m^2); Globulin 3.5 g/dL; Glucose 107 mg/dL (74-106); Potassium 4.0 mmol/L (3.5-5.1); Sodium 138 mmol/L (136-145); Total Protein 6.8 g/dL (6.4-8.2)
== END 2025-07-14 18:30 | disposition home or self-care (01) ==
PROVIDERS: Physician Assistant; Emergency Provider Emergency Medicine; PCP Family Medicine
DX: M79.601 Pain in right arm (principal); D64.9 Anemia, unspecified
CPT/HCPCS: 36415; 80053; 85025; 85378; 85610; 85730; 99283

== ENCOUNTER 2025-10-02 07:59 | Outpatient (OUT) | payer BC, SELFPAY ==
--- OUTSIDE RECORDS SUMMARY | 2025-09-20 09:30 | XMS_ITS | Encounter Summary ---
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 Role Phone Nany Obrien MD Primary Care Provider [phone] Encounter Details DateTypeDepartmentCare Team (Latest Contact Info)Bgfckotevrn33/11/2025 9:30 AM ESTOffice Visit [facility] [address] [facility] [address] [place] [id number] Nany Obrien MD [address] [facility] [address] [place] [address] Bad odor of urine Social History Tobacco UseTypesPacks/DayYears UsedDateSmoking Tobacco: FormerCigarettes1.531.7 01/27/1983 - 2014Smokeless Tobacco: Former Comments:Started at age 13 Alcohol UseStandard Drinks/WeekCommentsNot Currently0 (1 standard drink = 0.6 oz pure alcohol)Caffeine intake: 2-3 cups per day coffeeHumiliation, Afraid, Rape, and Kick questionnaireAnswerDate RecordedWithin the last year, have you been afraid of your partner or ex-partner?No03/06/2025Within the last year, have you been humiliated or emotionally abused in other ways by your partner or ex-partner?No03/06/2025Within the last year, have you been kicked, hit, slapped, or otherwise physically hurt by your partner or ex-partner?No03/06/2025Within the last year, have you been raped or forced to have any kind of sexual activity by your partner or ex-partner?No03/06/2025Social Connection and Isolation Panel AnswerDate RecordedIn a typical week, how many times do you talk on the phone with family, friends, or neighbors?More than three times a week03/06/2025How often do you get together with friends or relatives?Three times a week03/06/2025 How often do you attend buddhist or cheondoism services?More than 4 times per year 03/06/2025Do you belong to any clubs or organizations such as buddhist groups, unions, fraternal or athletic groups, or school groups?Yes03/06/2025ttends Club or Organization MeetingsNot on file03/06/2025re you , , , , never , or living with a partner?Ojbpffr8103/06/2025UDIT-C AnswerDate RecordedQ1: How often do you have a drink containing alcohol?Never 03/06/2025Q2: How many drinks containing alcohol do you have on a typical day when you are drinking?Patient does not drink03/06/2025Q3: How often do you have six or more drinks on one occasion?Never03/06/2025Overall Financial Resource Strain (CARDIA)AnswerDate RecordedHow hard is it for you to pay for the very basics like food, housing, medical care, and heating?Hard03/06/2025PHQ-2Answer Date RecordedPatient Health Questionnaire-2 Zvkwa23210/20/2024[facility] [place] [facility] Occupational [facility] - Occupational Stress QuestionnaireAnswerDate RecordedDo you feel stress - tense, restless, nervous, or anxious, or unable to sleep at night because yourmind is troubled all the time - these days?Only a xagutu0103/06/2025 Exercise Vital SignAnswerDate RecordedOn average, how many days per week do you engage in moderate to strenuous exercise (like a brisk walk)?5 days03/06/2025On average, how many minutes do you engage in exercise at this level?20 min 03/06/2025Hunger Vital SignAnswerDate RecordedWithin the past 12 months, you worried that your food would run out before you got the money to buymore.Never true03/06/2025Within the past 12 months, the food you bought just didn't last and you didn't have money to get more.Never true03/06/2025PRAPARE - TransportationAnswerDate RecordedIn the past 12 months, has lack of transportation kept you from medical appointments or from getting medications?No 03/06/2025In the past 12 months, has lack of transportation kept you from meetings, work, or from getting things needed for daily living?No03/06/2025 Housing Stability Vital SignAnswerDate RecordedIn the last 12 months, was there a time when you were not able to pay the mortgage or rent on time?No11/16/2023 Number of Places Lived in the Last YearNot on file11/16/2023In the last 12 months, was there a time when you did not have a steady place to sleep or slept in venturaelter (including now)?No11/16/2023Housing Stability Vital SignAnswerDate RecordedIn the last 12 months, was there a time when you were not able to pay the mortgage or rent on time?No03/06/2025Number of Times Moved in the Last Year Not on file03/06/2025t any time in the past 12 months, were you homeless or living in a long term (including now)?No03/06/2025CommentsNoSex and Gender InformationValueDate RecordedSex Assigned at JkfkjHczbqi18/12/2025 8:22 AM EST Legal WonRppgfs85/15/2023 7:21 PM EDTGender QethgehyFvxmir25/12/2025 8:22 AM EST Sexual OrientationNot on filedocumented as of this encounter Progress Notes * Carla Narayan, SP - 09/20/2025 9:30 AM EST Pt thinks she has a UTI and is here today to test her urine. She admits she has urgency, strong odor to urine and has been going on for about a week. She has increased her water intake and has been drinking cranberry juice. Also did sent out for culture. documented in this encounter Plan of Treatment DateTypeDepartmentCare Team (Latest Contact Info)Lsdprmggldm97/12/2026 9:30 AM ESTOffice Visit [facility] [address] [place] [address] Vamsi Garza, YVONNE [address] [place] [address] 03/01/2026 10:15 AM EDTOffice Visit [facility] [address] [facility] [place] [address] Amarjit Whitlock, DO [address] [facility] [address] [place] [address] documented as of this encounter Goals GoalPatient Goal TypeAssociated ProblemsRecent ProgressPatient-Stated?Author Help patient manage antidepressant medication Care PlanPatient on antidepressant monitoring Nany Shaver MD Baseline PHQ-9 Care PlanBaseline PHQ-9Nany Mcclain, MDdocumented as of this encounter Procedures Procedure NamePriorityDate/TimeAssociated DiagnosisCommentsURINARY TRACT INFECTION (HTRX)Pxfqyru1709/20/2025 9:53 AM EST Bad odor of urine POCT URINALYSIS OFHYQDXEBdlkkts80/11/2025 9:50 AM EST Bad odor of urine documented in this encounter Results * (ABNORMAL) URINARY TRACT INFECTION (HTRX) (09/20/2025 9:53 AM EST)Component ValueRef RangeTest MethodAnalysis TimePerformed AtPathologist Signature ACINETOBACTER MXZYJBDU377.961 - 24.689 ppm09/21/2025 6:53 AM ESTHealthTrackRx at LabPortACINETOBACTER RADHAIINot Dwmblftk04.961 - 24.689 ppm09/21/2025 6:53 AM ESTHealthTrackRx at LabPortCITROBACTER MGQOZSSL014.000 - 32.015 ppm 09/21/2025 6:53 AM ESTHealthTrackRx at LabPortCITROBACTER FREUNDIINot Detected 23.000 - 32.015 ppm09/21/2025 6:53 AM ESTHealthTrackRx at LabPortENTEROBACTER AEROGENES, BCOAKSN102.000 - 32.290 ppm09/21/2025 6:53 AM ESTHealthTrackRx at LabPortENTEROBACTER AEROGENES, CLOACAENot Cnktwfbi69.000 - 32.290 ppm 09/21/2025 6:53 AM ESTHealthTrackRx at LabPortENTEROCOCCUS FAECALIS, FAECIUM0 26.000 - 33.043 ppm09/21/2025 6:53 AM ESTHealthTrackRx at LabPortENTEROCOCCUS FAECALIS, FAECIUMNot Fukieeqi49.000 - 33.043 ppm09/21/2025 6:53 AM EST [facility] at LabPortESCHERICHIA COLI19.829(A)23.000 - 28.500 ppm09/21/2025 6:53 AM ESTHealthTrackRx at LabPortESCHERICHIA COLIDetected(A)23.000 - 28.500 ppm09/21/2025 6:53 AM ESTHealthTrackRx at LabPortKLEBSIELLA PNEUMONIAE, UJQUMCL395.000 - 31.865 ppm09/21/2025 6:53 AM ESTHealthTrackRx at LabPort KLEBSIELLA PNEUMONIAE, OXYTOCANot Qyzwulgm03.000 - 31.865 ppm09/21/2025 6:53 AM ESTHealthTrackRx at LabPortMORGANELLA UQEEECRU867.961 - 24.689 ppm 09/21/2025 6:53 AM ESTHealthTrackRx at LabPortMORGANELLA MORGANIINot Detected 19.961 - 24.689 ppm09/21/2025 6:53 AM ESTHealthTrackRx at LabPortPROTEUS MIRABILIS, DDFHDIFQ856.000 - 28.500 ppm09/21/2025 6:53 AM ESTHealthTrackRx at LabPortPROTEUS MIRABILIS, VULGARISNot Jilatnjx57.000 - 28.500 ppm12/09/2025 6:53 AM ESTHealthTrackRx at LabPortPSEUDOMONAS LWRVGMAEWU095.000 - 31.801 ppm 09/21/2025 6:53 AM ESTHealthTrackRx at LabPortPSEUDOMONAS AERUGINOSANot Ahepgxkn61.000 - 31.801 ppm09/21/2025 6:53 AM ESTHealthTrackRx at [facility]Port STAPHYLOCOCCUS DJZDZQ620.000 - 31.595 ppm09/21/2025 6:53 AM ESTHealthTrackRx at LabPortSTAPHYLOCOCCUS AUREUSNot Pwuktoar82.000 - 31.595 ppm09/21/2025 6:53 AM ESTHealthTrackRx at LabPortSTREPTOCOCCUS AGALACTIAE (GROUP B STREP)026.000 - 32.435 ppm09/21/2025 6:53 AM ESTHealthTrackRx at LabPortSTREPTOCOCCUS AGALACTIAE (GROUP B STREP)Not Uddcdhiv89.000 - 32.435 ppm09/21/2025 6:53 AM ESTHealthTrackRx at LabPortCANDIDA ALBICANS, PARAPSILOSIS, ZMXYQBDBUG452.000 - 30.347 ppm09/21/2025 6:53 AM ESTHealthTrackRx at LabPortCANDIDA ALBICANS, PARAPSILOSIS, TROPICALISNot Omdnarji87.000 - 30.347 ppm09/21/2025 6:53 AM EST [facility] LabPortCANDIDA ADPDAKLU472.000 - 31.618 ppm09/21/2025 6:53 AM ESTHealthTrackRx at LabPortCANDIDA GLABRATANot Htyngppl55.000 - 31.618 ppm 09/21/2025 6:53 AM ESTHealthTrackRx at LabPortCANDIDA QOAKGZ300.000 - 30.873 ppm09/21/2025 6:53 AM ESTHealthTrackRx at LabPortCANDIDA KRUSEINot Detected 23.000 - 30.873 ppm09/21/2025 6:53 AM ESTHealthTrackRx at LabPortSERRATIA UYQUMQOOZL291.000 - 31.581 ppm09/21/2025 6:53 AM ESTHealthTrackRx at LabPort SERRATIA MARCESCENSNot Tekozzuh64.000 - 31.581 ppm09/21/2025 6:53 AM EST [facility] at LabPortSTREPTOCOCCUS PYOGENES (GROUP A STREP)019.961 - 24.689 ppm09/21/2025 6:53 AM ESTHealthTrackRx at LabPortSTREPTOCOCCUS PYOGENES (GROUP A STREP)Not Nlbyjgmv64.961 - 24.689 ppm09/21/2025 6:53 AM ESTHealthTrackRx at LabIndiana University Health North HospitalSTAPHYLOCOCCUS EPIDERMIDIS, HAEMOLYTICUS, LUGDUNENSIS, SAPROPHYTICUS (ZOXFA756.961 - 24.689 ppm09/21/2025 6:53 AM ESTHealthTrackRx at [facility] STAPHYLOCOCCUS EPIDERMIDIS, HAEMOLYTICUS, LUGDUNENSIS, SAPROPHYTICUS (URINANot Kehwcjws80.961 - 24.689 ppm09/21/2025 6:53 AM ESTHealth[facility]Rx at [facility] STAPHYLOCOCCUS EPIDERMIDIS, HAEMOLYTICUS, LUGDUNENSIS, SAPROPHYTICUS (URINA0 19.961 - 24.689 ppm09/21/2025 6:53 AM ESTHealth[facility] at [facility] STAPHYLOCOCCUS EPIDERMIDIS, HAEMOLYTICUS, LUGDUNENSIS, SAPROPHYTICUS (URINANot Yzkrlqbg30.961 - 24.689 ppm09/21/2025 6:53 AM ESTHealthTrackRx at [facility] CenterPort Specimen (Source)Anatomical Location / LateralityCollection Method / Volume Collection TimeReceived BxxdOotoo77/11/2025 9:53 AM EST09/21/2025 2:09 AM EST Narrative Authorizing ProviderResult TypeResult StatusNany Obrien MDLAB BLOOD ORDERABLES Final ResultPerforming OrganizationAddressCity/State/ZIP CodePhone Number [facility] [address] [place] [address] * (ABNORMAL) POCT Urinalysis dipstick (09/20/2025 9:50 AM EST)ComponentValueRef RangeTest MethodAnalysis TimePerformed AtPathologist SignatureColor, UALight YellowClarity, UACloudyGlucose, UANegativeNegative - 2000(110) ++++ mg/dL Bilirubin, UANegativeNegative - 4(70) +++ mg/dLKetones, UANegativeNegative - 160(16) ++++ mg/dLSpec Grav, UA1.0051 - 1.03Blood, UAPositiveNegative - 50 Fercho/mcLComment:smallpH, UA8.55 - 9Protein, UATraceNegative - 2000(20) ++++ mg/dLUrobilinogen, UA1.00.2 - 12 mg/dLLeukocytes, UAPositiveNegative - 500+++ Reji/mcLComment:smallNitrite, UAPositiveNegative - PositiveSpecimen (Source) Anatomical Location / LateralityCollection Method / VolumeCollection Time Received RulbGekqu08/11/2025 9:50 AM EST Narrative Authorizing ProviderResult TypeResult StatusNany Obrien MDPOINT OF CARE TEST ENTER/EDIT ORDERABLESFinal Result documented in this encounter Visit Diagnoses Diagnosis Bad odor of urine documented in this encounter Additional Health Concerns Active ProblemsNoted DateDiagnosed DatePatient on antidepressant monitoring plan 5Baseline PHQ-9011/14/2024documented as of this encounter Care Teams Team MemberRelationshipSpecialtyStart DateEnd Date Nany Obrien MD [address] [place] [address] PCP - GeneralFamily Medicine03/10/23documented as of this encounter
--- OUTSIDE RECORDS SUMMARY | 2025-10-01 10:45 | XMS_ITS | Continuity of Care Document ---
Author Organization [facility] Address [address] [place] [address] Phone Care Team Providers Care Vocational Rehabilitation Specialist Name Role Phone Nany Orbien MD Primary Care Provider Krystal Lamb NP-C Referring Provider Kenny Rivero II, DO Attending Provider Adrienne Reyes Attending Provider Care Teams Patient Care Team Team Status: Active Member Role/Relationship Status Dates Nany Obrien MD Primary Care Provider Active Visit Care Team Team Status: Inactive Member Role/Relationship Status Dates Nany Obrien MD Primary Care Provider Active S tart: August 24, 2025 End: August 24, 2025MIGUEL NewmanCReferring ProviderActiveStart: August 24, 2025 End: August 24, 2025Kenny Rivero II, DOAttending ProviderActiveStart: August 24, 2025 End: August 24, 2025 Patient Care Team Team Status: Inactive Member Role/Relationship Status Brett Obrien MD Primary Care Provider Active S tart: October 01, 2025 End: October 01MIGUEL AvilaCAtelmer ProviderActiveStart: October 01, 2025 End: October 01, 2025 Visit Care Team Team Status: Active Member Role/Relationship Status Brett Obrien MD Primary Care Provider Active S tart: October 01, 2025 MIGUEL AlejandroCAttenbandar ProviderActiveStart: October 01, 2025 Krystal Hemmer , PELLETIZER-CReferring ProviderActiveStart: October 01, 2025 Chief Complaint and Reason for Visit Chief Complaint Admit Date NEW- Microcytic Anemia August 24 1:05pm Follow Up 1 Month October 01, 2025 2:32pm Microcytic Anemia October 01, 2025 3:44pm Reason for Visit Admit Date Anemia, B12 deficiency October 01 2:32pm Anemia, iron deficiency October 01, 2 025 2:32pm Easy bruising October 01, 2025 2:32pm Lupus October 01, 2025 2:32pm Type 1 diabetes October 01, 2025 2:32pm Allergies, Adverse Reactions, Alerts Allergen Type Severity Reaction Last Updated Verified Status hydromorphone Allergy Unknown Headache October 01, 2025 2:56p m Yes Active Social History Smoking Status Status Start Date End Date Date of Observa tion Ex-smoker (finding) August 24, 2025 1:19pm Observation Status Observation Response Date of Response Legal Sex Female (finding) Sex Assigned At [facility] 1969 Family History Relationship Condition Age at Onset Recorded Date/T stephanie sister Unknown Problems Active Problems Problem Diagnosis/Recorded Date Onset Date Stat us Lupus May 12, 2025 8:58am Unknown Acti ve Type 1 diabetes May 12, 2025 8:58am Unknown A ctive Fibromyalgia May 12, 2025 8:58am Unknown Acti ve Anemia, B12 deficiency October 01, 2025 3:18pm Unkn own Active Easy bruising October 01, 2025 3:40pm Unknown Active Osteoarthritis May 12, 2025 8:58am Unknown Ac tive Lip swelling May 12, 2025 9:26am Unknown Acti ve Anemia, iron deficiency October 01, 2025 3:18pm Unk nown Active Chronic back pain May 12, 2025 8:57am Unknown Active Left foot pain May 12, 2025 9:26am Unknown Ac tive Medications Medication Status Dose Units Route Directions Qty Days Refills S tart Date Stop Date End Date Reason(s) Instructions Adherence Celecoxib 200 mg capsule Active 200 MG PO Twice d aily as needed May 11, 2025 11:00pmUnknownFurosemide 40 mg wzjidaWoxvwq69FTXUJpnll daily May 11, 2025 11:00pmUnknownOxybutynin Chloride 15 mg tablet extended release 52blLophzn73IXUYnnpstSetafg 1st, 2025 11:00pmUnknownTrazodone 50 mg tabletActive 50MGPODaily at bedtimeMay 11, 2025 11:00pmUnknownTizanidine 4 mg tablet Pqdbvn6QYAEJyoqj times dailyMay 11, 2025 11:00pmUnknownEstradiol 0.1 mg/24 hr patch kgpouaqwgnWvfmzy8IQBJFUSANRENQGZSaudj a WeekMay 11, 2025 11:00pm UnknownClonazepam 1 mg tabletActive0.5MGPODaily at bedtimeMay 11, 2025 11:00pmUnknownTramadol 50 mg okbrbpIdemxd23ZBGPLwsln 6 hours as neededMay 11, 2025 11:00pmUnknownModafinil 200 mg fuhezwQwxgvu871UJIPMbnnr 2024 11:00pmUnknownPantoprazole 40 mg tablet,delayed release (DR/EC) Fhvrjvfaucpy99QLZXCgqwc 2024 11:00pmAugust 24, 2025 1:16pmTrazodone 150 mg azsshwIixspp562SXZNNwsxv at [facility]timen[facility]2024 11:00pmUnknownPregabalin 200 mg atsdybnCmcavw190JLCQFojct dailyMay 11, 2025 11:00pmUnknownBrexpiprazole (Rexulti) 0.5 mg tabletDiscontinued0.5MGPODaily May 11, 2025 11:002024 1:17pmDextromethorphan-Bupropion (Auvelity) 45-105 mg tablet, IR and ER, ridbjuwmCgwbtxvrbwys8CWUYGHbjby daily May 11, 2025 11:00pmAugust 24, 2025 1:17pmPrednisone 20 mg tablet Viogohsacnhr09HAEXKnccd kxboo471LskjodMay 11, 2025 11:00pmAugust 24, 2025 1:16pmBupropion Hcl (Wellbutrin Sr) 200 mg tablet sustained-release 12 hrActive 200MGPODailyAugust 24, 2025 12:00amUnknown Relevant Diagnostic Tests and/or Laboratory Data Laboratory Results Test Collection Date/Time Result Date/Time Result Interpretation Reference Range Result Comment Performing Site Corrected White Blood Count August 24, 2025 2:21pm August 24, 2025 3:42pm 5.3 10*3/uL 3.8-11.6[facility] [id number] [address] [place] [address]Mkxcnvnkjlr WBC CountAugust 24, 2025 2:21pmAugust 24, 2025 3:42pm5.3 10*3/uL3.8-11.6[facility] [id number] [address] [facility] [address]Kvz Blood CountAugust 24, 2025 2:21pmAugust 24, 2025 3:42pm3.36 10*6/uLBelow low normal3.60-5.00[facility] [id number] [address] [facility] [address]EvhwiauxxgIrbqaibg 14th, 2025 2:21pmAugust 24, 2025 3:42pm 8.4 g/dLBelow low .8-15.4[facility] [id number] [address] [facility] [address]UakoozffyzCbchietg 14th, 2025 2:21pmAugust 24, 2025 3:42pm 26.5 %Below low lbmevh30.0-46.4[facility] [id number] [address] [place] [address]Qtsv Corpuscular VolumeAugust 24, 2025 2:21pmAugust 24, 2025 3:42pm78.7 fLBelow low arnkjj92-440XrbahhwxzOhiohealth [facility]ady [facility] [id number] [address] [facility] [address]Wzis Corpuscular HemoglobinAugust 24, 2025 2:21pmAugust 24, 2025 3:42pm25.1 pg24.7-34.3[facility] [id number] [address] [facility] [address]Yala Corpuscular Hemoglobin ConcentAugust 24, 2025 2:21pm August 24, 2025 3:42pm31.9 g/dLBelow low gatelo91.0-35.0[facility] [id number] [address] [facility] [address]Rhw Cell Distribution WidthAugust 24, 2025 2:pmAugust 24, 2025 3:42pm17.5 %Above high dnawud59.9-15.3[facility] [id number] [address] [facility] [address]Vukqlvqc CountAugust 24, 2025 2:2024 3:77ws976 10*3/rG406-811NjmwfhxgpOhiohealth [facility]ady [facility] [id number] [address] [facility] [address]Jmaf Platelet VolumeAugust 24, 2025 2:pmAugust 24, 2025 3:42pm7.3 fL6.3-10.7FV[facility] [id number] [address] [facility] [address]Vbzvknhcwzl (%) (Auto)August 24, 2025 2:2024 3:42pm62.3 %.[facility] [id number] [address] [facility] 25896Ekoocnyuwpk (%) (Auto)August 24, 2025 2:pmAugust 24, 2025 3:42pm29.4 %.[facility] [id number] [address] [facility] 05843Dpdcgylqe (%) (Auto)August 24, 2025 2:pmAugust 24, 2025 3:42pm7.3 %.[facility] [id number] [address] [facility] 20483Zivcjbswfep (%) (Auto)August 24, 2025 2:pmAugust 24, 2025 3:42pm0.5 %.[facility] [id number] [address] [facility] [address]Skhecmoit (%) (Auto)August 24, 2025 2:2024 3:42pm0.5 %.[facility] [id number] [address] [facility] [address]Dzpigstpa RBC Relative Count (auto)August 24, 2025 2:21pm August 24, 2025 3:42pm0.1 /100{WBC}0-0.5[facility] [id number] [address] [facility] [address]Vrseglkehfz # (Auto)August 24, 2025 2:pmAugust 24, 2025 3:42pm3.3 10*3/uL1.8-7.7[facility] [id number] [address] [facility] [address]Mtrddfhaxay # (Auto)August 24, 2025 2:pmAugust 24, 2025 3:42pm1.6 10*3/uL1.00-4.8[facility] [id number] [address] [facility] [address]Hkrcpcany # (Auto)August 24, 2025 2:pmAugust 24, 2025 3:42pm0.4 10*3/uL0.0-0.8[facility] [id number] [address] [facility] [address]Ixzlsdbctti # (Auto)August 24, 2025 2:pmAugust 24, 2025 3:42pm0.0 10*3/uL0.0-0.45[facility] [id number] [address] [facility] [address]Slhpgdqdv # (Auto)August 24, 2025 2:2024 3:42pm0.0 10*3/uL0.0-0.2[facility] [id number] [address] [facility] 235[address]Mupueqsszbd Sedimentation RateAugust 24, 2025 2:pm August 24, 2025 5:03pm45 mm/hrAbove high normal0-29[facility] [id number] [address] [facility] [address]Hrthqac Reticulocyte CountAugust 24, 2025 2:pmAugust 24, 2025 3:42pm2.0 %Above high normal0.5-1.5[facility] [id number] [address] [facility] [address]Iiladeyn Reticulocyte CountAugust 24, 2025 2:pmAugust 24, 2025 3:42pm0.066 10*6/uL0.024-0.084[facility] [id number] [address] [facility] [address]Gdjznat LevelAugust 24, 2025 2:pmAugust 24, 2025 3:57pm86 mg/iJ51-392OQE recommended reference rangeRandom Glucose Reference Range is dependent on time and content of last meal. Glucose of more than 200 mg/dL in a nonstressed, ambulatory subject supports the diagnosisof Diabetes Mellitus.[facility] [id number] [address] [facility] [address]Sqjxx Urea NitrogenAugust 24, 2025 2:2024 3:57pm11 mg/dL7-25[facility] [id number] [address] [facility] [address]AvmqgypdyeDpcdbhlt 14th, 2025 2:2024 3:57pm 0.55 mg/dLBelow low normal0.60-1.20[facility] [id number] [address] [facility] 36773Ytrulgxeq GFR (CKD-EPI)August 24, 2025 2:2024 3:57pm> 60.0 mL/MinOhiohealth Grady Memorial Hospital Ctr [id number] [address] [facility] 26823Dnisjx LevelAugust 24, 2025 2:2024 3:22kr306 mmol/N321-994BrputvaztOhiohealth Grady Memorial Hospital Ctr [id number] [address] [facility] 75[address]Jowroeime LevelAugust 24, 2025 2:2024 3:57pm4.0 mmol/L3.5-5.1[facility] [id number] [address] [facility] [address]23[address]Dsdirzgz LevelAugust 24, 2025 2:2024 3:05mc128 mmol/O86-933RhtnjyxgiOhiohealth Grady Memorial Hospital [facility] [id number] [address] [facility] [address]Wiloqp Dioxide LevelAugust 24, 2025 2:2024 3:57pm31.1 mmol/LAbove high powcpt67.0-31.0[facility] [id number] [address] [facility] [address]Jhspg GapNov2024 2:pmAugust 24, 2025 3:57pm 7.9 mEq/L6.0-15.0[facility] [id number] [address] [facility] 596[address]Wlpjtin LevelAugust 24, 2025 2:pmAugust 24, 2025 3:57pm8.8 mg/dL8.6-10.3[facility] [id number] [address] [facility] [address]Eoihk ProteinNov2024 2:pmAugust 24, 2025 3:57pm6.5 g/dL6.4-8.9[facility] [id number] [address] [facility] 39[address]WwdpdeaClslaxyb 14th, 2025 2:2024 3:57pm4.1 g/dL3.5-5.7[facility] [id number] [address] [facility] [address]AzuakfdaDpkdygja 14th, 2025 2:pmAugust 24, 2025 3:57pm2.4 g/dLOhiohealth Grady [facility] [id number] [address] [facility] 32576Lqburpl/Globulin RatioNovember 2024 2:2024 3:57pm1.7[facility] [id number] [address] [facility] 20691Mkdmf BilirubinAugust 24, 2025 2:2024 3:57pm0.3 mg/dL0.3-1.0[facility] [id number] [address] [facility] [address]Fihqpughm Amino Transf (AST/SGOT)August 24, 2025 2:pm August 24, 2025 3:57pm11 U/LBelow low -20GobfxovtwOhiohealth Grady Memorial Hospital Ctr [id number] [address] [facility] 21386Gpyjwkx Aminotransferase (ALT/SGPT)August 24, 2025 2:21pm August 24, 2025 3:57pm10 U/L7-52[facility] [id number] [address] [facility] 755[address]Bxlzfkgl PhosphataseAugust 24, 2025 2:21pmAugust 24, 2025 3:57pm65 U/P29-432DbdfzqqyaOhiohealth Grady Memorial Hospital [facility] [id number] [address] [facility] 307[address]Wvku LevelAugust 24, 2025 2:pmAugust 24, 2025 3:57pm 33 ug/dLBelow low -847RtgnnrruvOhiohealth Grady Memorial Hospital Ctr [id number] [address] [facility] [address]Raxve Iron Binding CapacityAugust 24, 2025 2:pmAugust 24, 2025 3:33py594 ug/bX547-957XrroysithOhiohealth Grady Memorial [facility] [id number] [address] [facility] [address]Srpw SaturationAugust 24, 2025 2:2024 3:57pm8.7 %Below low dqonga87-28TxvvxddscOhiohealth Grady Memorial Hospital [facility] [id number] [address] [facility] 97149KhvqrkixolgDwkyqvui 14th, 2025 2:2024 3:57pm 272 mg/wK418-240FvtmjcxuoOhiohealth Grady Memorial [facility] [id number] [address] [facility] 15983XauxkrhiOivwquck 14th, 2025 2:2024 4:17pm7.0 ng/mLBelow low wblohb78.0-306.8[facility] [id number] [address] [facility] 46017Vwmfojy B12 LevelAugust 24, 2025 2:2024 4:79uv836 pg/mLBelow low ptmkov859-321ExdrnlbwyOhiohealth Grady Memorial Hospital [facility] [id number] [address] [facility] 7[address]AnihumKhfaruic 14th, 2025 2:pmAugust 24, 2025 4:21pm15.6 ng/mL>5.9Folate reference range: >5.9 ng/mlThe WHO technical consultation on folate and vitamin u39pitbxnburzhs has determined that folate concentrations lessthan 4 ng/ml are considered deficient.[facility] [id number] [address] [facility] 69987Ddkmwxqg Creatinine Clearance (ChemNovember 2024 2:21pm August 24, 2025 3:58ar373.51[facility] [id number] [address] [facility] [address]Nwsvu ImmunofixationAugust 24, 2025 2:2024 4:09pmComment.No monoclonality detected.[facility] GNovemb2024 2:pmAugust 28, 2025 4:69ln2397 mg/jB986-2543NccXjvy ANovember 2024 2:2024 4:42sk836 mg/zC15-604VdnBsiu MNove2024 2:2024 4:09pm69 mg/kF00-002Ikazrzjft at: [facility] [employer] [id number] Director: Pee Moreno PhD, Phone: [phone] 14th, 2025 2:21pm August 27, 2025 4:36pm66.1 mIU/mLAbove high normal2.6-18.5[facility] medical centerMine DxI 800 Immunoassay SystemValues obtained with different assay methods or kits cannotbe used interchangeably. Results cannot be interpreted asabsolute evidence of the presence or absence of malignantdisease.Performed at: [facility] [id number] Director: Pee Moreno PhD, Phone: [phone] Total ProteinAugust 24, 2025 2:2024 4:36pm6.6 g/dL6.0-8.5[facility] Albumin (Send Out)August 24, 2025 2:2024 4:36pm3.6 g/dL 2.9-4.4[facility] 14th, 2025 2:2024 4:36pm0.3 g/dL0.0-0.4[facility] 2024 2:2024 4:36pm0.6 g/dL0.4-1.0[facility] Beta GlobulinsNovember 2024 2:2024 4:36pm0.9 g/dL 0.7-1.3[facility] GlobulinsNov2024 2:2024 4:36pm1.2 g/dL0.4-1.8[facility] Electrophoresis M-SpikeAugust 24, 2025 2:2024 4:36pmNot observed g/dLNot ObservedLabCorp (PEP)August 24, 2025 2:2024 4:36pm3.0 g/dL2.2-3.9[facility] /Globulin (PEP) August 24, 2025 2:2024 4:36pm1.20.7-1.7[facility] Electrophoresis NoteNov2024 2:2024 4:36pmComment.Protein electrophoresis scan will follow via computer,mail, or classification inspector delivery.[facility] Barling Light Chains, QuantNov2024 2:2024 4:08pm22.5 mg/LAbove high normal3.3-19.4[facility] Lambda Light Chains, QuantNov2024 2:Nov2024 4:08pm15.9 mg/L5.7-26.3[facility] Barling/Lambda Light Chain RatioNove2024 2:21pmNov2024 4:08pm1.420.26-1.65Performed at: [facility] [id number] Director: Pee Moreno PhD, Phone: [phone] Vital Signs Vital Reading Result Reference Range Collection Date/Time Height 70 [in_i] August 24, 2025 1:97jdDiusqa30.54 kgAugust 24, 2025 1:10pmBody Nxvuzkngmls85.8 [degF]97.6-99.0August 24, 2025 1:10pmHeart Rate46 /zyu83-333 August 24, 2025 1:10pmRespiratory rate16 /ohl95-92DdojxfgfAugust 24, 2025 1:10pm Oxygen saturation by Pulse rqmferyp96 %95-100August 24, 2025 1:10pmBP Zxgsnmzq15 mm[Hg]100-140August 24, 2025 1:10pmBP Mmpwehvaj47 mm[Hg]60-100 August 24, 2025 1:10pmBMI (Body Mass Index)27.6 kg/z1QnxjdcwzAugust 24, 2025 1:95qtHutanc02 [in_i]October 01, 2025 2:66luRaqcsn17.90 kgDece2024 2:38pmBody Asuddvbtjid39.8 [degF]97.6-99.0Dece2024 2:38pmHeart Rate 56 /lsf87-155Xmmesvqm 22nd, 2025 2:38pmRespiratory rate16 /ufb53-22Xbofzrxl 22nd, 2025 2:38pmOxygen saturation by Pulse nrgzmatv86 %95-100Decemb2024 2:38pmBP Wqayscst648 mm[Hg]100-140Decemb2024 2:38pmBP Jokldnqwt81 mm[Hg]60-100December 2024 2:38pmBMI (Body Mass Index)28.1 kg/l3Xdscjmry2024 2:15uzDpfwpu44 [in_i]October 01, 2025 2:75opRhizyx97.90 kgDecember 2024 2:38pm Advance Directives Advance Directive Response Recorded Date/ Time Advance Directives No July 19, 2017 10:15am Insurance Providers Guarantor Carmen Elise Address [address] [place] [address]Uftciqj Info.Home Phone: Payer Group Member ID Coverage Type Subscriber Relationship to Subscriber Effective Date Expiration Date Darian DICKERSON Id: [id number] R Downing Id: [id number] [address] [place] [address] Home Phone: SelfAnthe VANDANA/YG Id: [id number] G Downing , JR Id: [id number] [address] [place] [address] Home Phone: Email: [email or web address] Only [id number] R Downing Id: [id number] [address] [place] [address] Home Phone: Self Encounters Encounter Location(s) Arrival/Admit Date Discharge/Departure Date Discharge/Departure Disposition Provider(s) Departed Physician/ Provider [facility] August 24, 2025 1:05pm August 24, 2025 1:54pm Discharged to home care or self care (routine discharge) Kenny Rivero II DO Departed Physician/ Provider Office Visit -[facility] Amb[facility] October 01, 2025 2:32pm October 01, 2025 3:43pm Discharged to home care or self care (routine discharge) SUNI Alejandro Registered Recurring -[facility] Acute September 3:44pm SUNI Alejandro Recent Diagnosis Onset Date Admit Date Anemia, B12 deficiency Unknown October 01, 2025 2:32pm Anemia, iron deficiency Unknown October 01, 2025 2:32pm Easy bruising Unknown October 01 025 2:32pm Lupus Unknown October 01 025 2:32pm Type 1 diabetes Unknown October 01 025 2:32pm Assessments Diagnosis Onset Date Resolution Status Admit Date Anemia, B12 deficiency acuteDecember 2024 2:32pmAnemia, iron deficiencyacuteDecember 2024 2:32pmEasy bruisingacuteDecember 2024 2:32pmLupusacuteDecember 2024 2:32pmType 1 diabetesacuteDecember 2024 2:32pm Plan of Treatment Author Adrienne Reyes [facility] 20[facility] 3:40pmIron Deficiency Anemia She is intolerant of oral secondary to nausea B12 Deficiency Anemia Autoimmune Diseases including Lupus and Type 1 Diabetes Contributing cause of anemia Future Tests Future scheduled test information is unavailable Pending Tests Test Name Ordered Date Scheduled Date Comprehensive Metabolic Panel October 01 3:30pm 1 Days Comprehensive Metabolic Panel October 01 3:32pm 3 Months Haptoglobin October 01, 2025 3:30pm 1 Day s Partial Thromboplastin Time October 01, 2025 3:30pm 1 Days Future Visits Future appointment information is unavailable Future Procedures Procedure Name Ordered Date Scheduled Date Complete Blood Count Auto Diff October 01 3:30pm 1 Days Complete Blood Count Auto Diff October 01 3:32pm 3 Months Direct Leandro October 01, 2025 3:30pm 1 Day s Iron and TIBC Profile October 01, 2025 3:30pm 1 Days Iron and TIBC Profile October 01, 2025 3:32pm 3 Months Ferritin October 01, 2025 3:30pm 1 Day s Ferritin October 01, 2025 3:32pm 3 Mon ths Prothrombin Time INR October 01, 2025 3:30pm 1 Days Reticulocyte Count October 01, 2025 3:30pm 1 Days Future Medications Future medication information is unavailable Patient Instructions Patient instructions are unavailable
--- OUTSIDE RECORDS SUMMARY | 2025-10-02 08:11 | XMS_ITS | Clinical Summary ---
Author Organization [facility] Address [address] [facility] [facility], [address] [place] [address] Care Team Providers Care Premium Cancellation Clerk Name Role Phone Nany Obrien MD Primary Care Provider [phone] Allergies No known active allergies Medications MedicationSigDispense QuantityRefillsLast FilledStart DateEnd DateStatus traZODone (DESYREL) 50 MG tablet Take 50 mg by mouth nightlyActive baclofen (LIORESAL) 10 MG tablet Take 10 mg by mouth 4 times dailyActive OXcarbazepine (TRILEPTAL) 150 MG tablet Take 150 mg by mouth three times dailyActive pregabalin (LYRICA) 100 MG capsule Take 200 mg by mouth 3 times dailyActive estradiol (ESTRACE) 2 MG tablet Take 2 mg by mouth dailyActive oxyCODONE-acetaminophen (PERCOCET) 10-325 MG per tablet Take 1 tablet by mouth every 6 hours as needed for Pain .Active venlafaxine (EFFEXOR) 75 MG tablet Take 150 mg by mouth dailyActive tolterodine (DETROL LA) 4 MG extended release capsule Take 8 mg by mouth dailyActive metoprolol tartrate (LOPRESSOR) 25 MG tablet Take 25 mg by mouth dailyActive cefUROXime (CEFTIN) 500 MG tablet Take 500 mg by mouth 2 times dailyActive Active Problems No known active problems Family History Medical HistoryRelationNameCommentsArthritisFatherOtherMotherRelationNameStatus CommentsFatherAliveMotherAliveSisterDeceased Social History Tobacco UseTypesPacks/DayYears UsedDateSmoking Tobacco: Every DayCigarettes0.320 Smokeless Tobacco: Never Tobacco Cessation:Ready to Q uit: Yes; Counseling Given: No Alcohol UseStandard Drinks/WeekCommentsNo0 (1 standard drink = 0.6 oz pure alcohol)CommentsNoSex and Gender InformationValueDate RecordedSex Assigned at BirthNot on fileLegal UprMdabth11/13/2016 11:21 AM EDTGender IdentityNot on fileSexual OrientationNot on file Last Filed Vital Signs Vital SignReadingTime TakenCommentsBlood Cokfqfwt817/8609/24/2017 5:56 PM EST Ajsak431409/24/2017 5:56 PM NGWXulikngdunz71.5 ??C (97.7 ??F)09/24/2017 5:10 PM ESTRespiratory Qwiq2699 5:56 PM ESTOxygen Wdjmulucjr41%09/24/2017 5:56 PM ESTInhaled Oxygen Concentration--Atfovf38.8 kg (220 lb)09/24/2017 9:49 AM EST Zhbomu789 cm (5' 8.5 )09/24/2017 9:49 AM ESTBody Mass Index32.9609/24/2017 9:49 AM EST Plan of Treatment Not on file Medical Devices ImplantedTypeAreaManufacturerDevice IdentifierShelf Expiration DateModel / Serial / LotPump Infuse Pain Synchromed Ii 40ml - [id number] Implanted:Qty: 1 on 09/24/2017 by Lilia Katz MD at [facility]-[id number] / [id number] / Care Teams Team MemberRelationshipSpecialtyStart DateEnd Date Nany Obrien MD PCP - GeneralFamily Ufbacjwu10/20/17
--- OUTSIDE RECORDS SUMMARY | 2025-10-02 08:11 | XMS_ITS | Encounter Summary ---
Author Organization [facility] Address [address] [place] [address] Care Team Providers Care Work Study Student Name Role Phone Nany Obrien MD Primary Care Provider [phone] Reason for Visit * ReasonOnset DateCommentsMed Zkakum2609/20/2025 Encounter Details DateTypeDepartmentCare Team (Latest Contact Info)Zgepbxqexcf52/11/2025Refill [facility] [address] [place] [address] Krystal Lamb, PA [address] [place] [address] Recurrent cold sores Social History Tobacco UseTypesPacks/DayYears UsedDateSmoking Tobacco: FormerCigarettes1.531.7 [...] a week03/06/2025 How often do you attend methodist or jain services?More than 4 times per year 03/06/2025Do you belong to any clubs or organizations such as methodist groups, unions, fraternal or athletic groups, or school groups?Yes03/06/2025ttends Club or Organization MeetingsNot on file03/06/2025re you , , , , never , or living with a partner?Rqbmxpw1403/06/2025UDIT-C AnswerDate RecordedQ1: How often do you have [...] care, and heating?Hard03/06/2025PHQ-2Answer Date RecordedPatient Health Questionnaire-2 Ijlqz08510/20/2024[facility] [place] of Occupational Health - Occupational Stress QuestionnaireAnswerDate RecordedDo you feel stress - tense, restless, nervous, or anxious, or unable to sleep at night because yourmind is troubled all the time - these days?Only a lcxetc7303/06/2025 Exercise Vital SignAnswerDate RecordedOn average, how many [...] steady place to sleep or slept in [facility] (including now)?No11/16/2023Housing Stability Vital SignAnswerDate RecordedIn the last 12 months, was there a time when you were not able to pay the mortgage or rent on time?No03/06/2025Number of Times Moved in the Last Year Not on file03/06/2025t any time in the past 12 months, were you homeless or living in a care home (including now)?No03/06/2025CommentsNoSex and Gender InformationValueDate RecordedSex Assigned at EgpsfOafxra07/12/2025 8:22 AM EST Legal SnxVfydkp28/15/2023 7:21 PM EDTGender YjlongnrQkiwqr35/12/2025 8:22 AM EST Sexual OrientationNot on filedocumented as of this encounter Plan of Treatment DateTypeDepartmentCare Team (Latest Contact Info)Rjututhqijc39/12/2026 9:30 AM ESTOffice Visit [facility] [address] [place] [phone] Vamsi Garza, RUBBER TILE FLOOR LAYER [address] [place], [place] [phone] 03/01/2026 10:15 AM EDTOffice Visit [facility] [address] [facility] [place] [address] Amarjit Whitlock, [address] [facility] [address] [place] [address] documented as of this encounter Goals GoalPatient Goal TypeAssociated ProblemsRecent ProgressPatient-Stated?Author Help patient manage antidepressant medication Care PlanPatient on antidepressant monitoring Nany Shaver MD Baseline PHQ-9 Care PlanBaseline PHQ-9Nany Mcclain, MDdocumented as of this encounter Visit Diagnoses Diagnosis Recurrent cold sores Herpes simplex without mention of complication documented in this encounter Additional Health Concerns Active ProblemsNoted DateDiagnosed DatePatient on antidepressant monitoring plan 5Baseline PHQ-9011/14/2024documented as of this encounter Care Teams Team MemberRelationshipSpecialtyStart DateEnd Date Nany Obrien MD [address] [facility] [address] [place] [address] PCP - GeneralFamily Medicine03/10/23documented as of this encounter
--- OUTSIDE RECORDS SUMMARY | 2025-10-02 08:11 | XMS_ITS | Clinical Summary ---
Author Organization [facility] Address [address] [facility] [place] [address] Care Team Providers Care Training Director Name Role Phone Ebony Aguirre MD Unavailable Source Comments The following information is NOT included in Care Everywhere downloads:Psychiatric notes, ECG results, Cardiac Rehab notes, Pulmonary Function notes, data from [facility] (includes but not limited toPregnancy data,audiograms, eye exams, pre-surgical evaluation notes, well-child exam data).[facility] Allergies No known active allergies Medications MedicationSigDispense QuantityRefillsLast FilledStart DateEnd DateStatus omeprazole (PRILOSEC) 40 MG capsule Take 40 mg by mouth.11/29/2023ctive oxybutynin (DITROPAN XL) 15 MG XL tablet Take 15 mg by mouth every morning.Active celecoxib (CeleBREX) 200 MG capsule Take 200 mg by mouth daily.02/13/2023ctive duloxetine (CYMBALTA) 60 MG capsule Take 120 mg by mouth daily.Active estradiol (ESTRACE) 2 MG tablet Take 2 mg by mouth daily.09/08/2023ctive furosemide (LASIX) 40 MG tablet Take 40 mg by mouth 2 times daily.Active lidocaine (LIDODERM) 5 % patch APPLY 1 PATCH TO SKIN ONCE A DAY NEEDED FOR PAINActive pregabalin (LYRICA) 200 MG capsule TAKE 1 CAPSULE BY MOUTH IN THE MORNING AND 1 CAPSULE IN THE EVENING AND 1 CAPSULE BEFORE BEDTIME.Active modafinil (PROVIGIL) 200 MG tablet Take 200 mg by mouth every morning.Active tizanidine (ZANAFLEX) 4 MG tablet TAKE 1 TABLET BY MOUTH THREE TIMES A DAY NEEDED FOR MUSCLE SPASMActive clonazePAM (KlonoPIN) 1 MG tablet Take 1 Tablet by mouth at bedtime.09/08/2023ctive tramadol (ULTRAM) 50 MG tablet Take 50 mg by mouth every 6 hours as needed.09/08/2023ctive Potassium Gluconate 595 MG TBCR Take by mouth daily.Active trazodone (DESYREL) 50 mg tablet Take 50 mg by mouth at bedtime.Active Immunizations ImmunizationAdministration DatesNext DueInfluenza, injectable, quadrivalent, preservative free (OOM=913)07/14/2023,07/16/2020 Social History Tobacco UseTypesPacks/DayYears UsedDateSmoking Tobacco: NeverSmokeless Tobacco: Never Tobacco Cessation:Counseling Given: Not Answered [facility] UtilitiesAnswerDate RecordedIn the past 12 months has the [employer], gas, oil, or water [employer] threatened to shut off services in your home?06/24/2024 Humiliation, Afraid, Rape, and Kick questionnaireAnswerDate RecordedWithin the last year, have you been afraid of your partner or ex-partner?06/24/2024Within the last year, have you been humiliated or emotionally abused in other ways by your partner or ex-partner?06/24/2024Within the last year, have you been kicked, hit, slapped, or otherwise physically hurt by your partner or ex-partner?06/24/2024Within the last year, have you been raped or forced to have any kind of sexual activity by your partner or ex-partner?06/24/2024 Social Connection and Isolation PanelAnswerDate RecordedIn a typical week, how many times do you talk on the phone with family, friends, or neighbors?More than three times a week06/24/2024How often do you get together with friends or relatives?Three times a week06/24/2024How often do you attend mosque or adventism services?More than 4 times per year06/24/2024o you belong to any clubs or organizations such as mosque groups, unions, fraternal or athletic john ups, or school groups?Yes06/24/2024How often do you attend meetings of the clubs or organizations you belong to?More than 4 times per year06/24/2024re you , , , , never , or living with a partner? Oeraabq4706/24/2024Overall Financial Resource Strain (CARDIA)AnswerDate Recorded How hard is it for you to pay for the very basics like food, housing, medical care, and heating?Not hard at all06/24/2024[facility] [place] of Occup[facility] Health - Occupational Stress QuestionnaireAnswerDate RecordedDo you feel stress - tense, restless, nervous, or anxious, or unable to sleep at night because your mind is troubled all the time - these days?Not at all06/24/2024Exercise Vital SignAnswerDate RecordedOn average, how many days per week do you engage in moderate to strenuous exercise (like a brisk walk)?3 days06/24/2024On average, how many minutes do you engage in exercise at this level?40 min06/24/2024Hunger Vital SignAnswerDate RecordedWithin the past 12 months, you worried that your food would run out before you got the money to buymore.Never true06/24/2024 Within the past 12 months, the food you bought just didn't last and you didn't have money to get more.Never true06/24/2024RAPARE - TransportationAnswerDate RecordedIn the past 12 months, has lack of transportation kept you from medical appointments or from getting medications?No06/24/2024In the past 12 months, has lack of transportation kept you from meetings, work, or from getting things needed for daily living?No06/24/2024Housing Stability Vital SignAnswerDate RecordedIn the last 12 months, was there a time when you were not able to pay the mortgage or rent on time?No06/24/2024Number of Times Moved in the Last Year Not on file06/24/2024Homeless in the Last YearNot on file06/24/2024Utilities - HistoricalAnswerDate RecordedIn the past 12 months has the electric, gas, oil, or water company threatened to shut off services in your home?No06/24/2024 EducationAnswerDate RecordedWhat is the highest level of school you have completed or the highest degree you have received?Some college, no degree 06/24/2024CommentsUnknownSex and Gender InformationValueDate RecordedSex Assigned at BuiofIkbljo47/16/2024 5:44 AM EDTLegal OztPpwjvn91/23/2024 9:51 AM EDTGender VddusssxZfatzs31/16/2024 5:44 AM EDTSexual OrientationNot on file Last Filed Vital Signs Vital SignReadingTime TakenCommentsBlood Pviozhyr656/62006/26/2024 9:35 AM EDT Hjmfm458206/26/2024 9:35 AM UXIXrwmgwxnqlq85.8 ??C (98.3 ??F)06/26/2024 9:35 AM EDTRespiratory Rate--Oxygen Saturation--Inhaled Oxygen Concentration--Yhphac75.1 kg (218 lb 8 oz)06/26/2024 9:35 AM EDTHeight--Body Mass Index-- Plan of Treatment Health MaintenanceDue DateLast FxclDdtafkorEcqdbftwtnh1971HIV Test 1986Hepatitis C Wqnlkdyo34/05/1989Tdap Gsfidhp3201/13/1989Hepatitis A (HAV) Vaccine (optional start 19+ years)1990Hepatitis B (HBV) Vaccine (1 of 3 - 19+ 3-dose series)1990Pap Smear01/14/19927554Szcfmwqebsw03/05/2016FIT 01/14/2016Pneumococcal Vaccine(s) (50+ yrs) (1 of 1 - PCV)2021hingles (RZV) Vaccine (1 of 2)01/13/20212995Jdzeylmspdw88/28/202304/, 11/02/2019, 10/21/2018, Additional history existsCRC Wsajsdpoy94/30/2025Cologuard (Stool DNA)508/2COVID-19 Vaccine (2024- season)2025Influenza Vaccine (#1)2023, 07/16/2020 Insurance Care Teams Team MemberRelationshipSpecialtyStart DateEnd Ebony Aguirre MD [address] [place] [address] OhzheoHahkxeqlehjt83/5/24
--- OUTSIDE RECORDS SUMMARY | 2025-10-02 08:11 | XMS_ITS | Clinical Summary ---
Author Organization [facility] Address [address] [facility] [place] [address] Care Team Providers Care Marketing Analytics Lead Name Role Phone Krystal Lamb Primary Care Provider [phone] Allergies Active AllergyReactionsCriticalityNoted DateCommentsDuloxetine WdzUrn3711/27/2024 Other Reaction(s): Other Excessive sweating Mxdrghrgxxnnk34/08/2021 Severe headache, rash Other Reaction(s): Unknown Medications MedicationSigDispense QuantityRefillsLast FilledStart DateEnd DateStatus clonazePAM 1 MG Tab Dispersible Take by mouth daily.02/01/2014ctive Diazepam 10 MG tablet TAKE 1 TABLET BY MOUTH 45 MINUTES PRIOR TO PROCEDURE AFTER SIGNING CONSENT. 05/23/2024ctive DULoxetine [address] Particles capsule DR Take 1 capsule by mouth Every night.Active estradiol 0.1 MG/24HR Patch Biweekly PLACE 1 PATCH OVER 96 HOURS ON THE SKIN 2 TIMES A WEEKActive oxyBUTYnin 15 MG Tab SR 24 HR Take 1 tablet by mouth daily.5Active furOSEmide 40 MG tablet Take 1 tablet by mouth 2 times daily.Active Modafinil 200 MG tablet Take 1 tablet by mouth daily.02/01/2013ctive pregabalin 100 MG capsule Take 2 capsules by mouth Three times a day.Active Celecoxib 200 MG capsule Take 1 capsule by mouth 2 times daily.Active Ascorbic Acid (Vitamin C) 500 MG capsule 5Active Pantoprazole [address] tablet DR Take 1 tablet by mouth daily.Active buPROPion 200 MG tablet SR Take 1 tablet by mouth Twice daily.10/03/2024ctive Rexulti 0.5 MG tablet Take 1 tablet by mouth daily.Active traZODone 150 MG tablet Take 1 tablet by mouth at bedtime.Active traZODone 50 MG tablet Take 1 tablet by mouth at bedtime.Active tiZANidine 4 MG tablet Take 1 tablet by mouth Every 6 hours as needed.Active lidocaine 5 % Patch patch APPLY 1 PATCH TO SKIN ONCE A DAY NEEDED FOR PAIN06/05/2024ctive traMADol 50 MG tablet Take 1 tablet by mouth Every 6 hours as needed.01/01/2018Active triamcinolone 0.1 % Ointment ointment 08/11/2024ctive Docusate Calcium (STOOL SOFTENER PO) Take by mouth daily.Active POTASSIUM PO Take 650 mg by mouth daily.Active HYDROmorphone PF intrathecal pump by Intrathecal route daily. Concentration 7.5 mg/mL. Baclofen 1000mcg/ml; Clonidine 150mcg/mlActive ferrous sulfate 325 (65 Fe) MG Tab DR tablet DR Take 1 tablet by mouth Daily (with dinner).5Active Active Problems ProblemNoted DateDiagnosed DateObesity (BMI 30.0-34.9)01/02/2025 Encounters DateTypeDepartmentCare LuyhFrlqjklhupo83/21/2025Results Follow-Up [facility] [address] [address] Mandy Mullins SURGICAL PATHOLOGY CXCCWKJ3307/24/2025 2:51 PM EDTAnesthesia Event [facility] [address] [place] [address] John Biggs APRN-CRNA [place]bout, James D, APRN-CRNA 07/24/2025 2:15 PM EDT - 07/24/2025 4:00 PM EDTSurgery [facility] [address] [place] [address] Kyrie Lopez MD BREAST REDUCTION *1ST ASST*07/24/2025 11:43 AM EDT - 07/24/2025 6:45 PM EDT Hospital Encounter [facility] [address] [place] [address] Kyrie Lopez MD Macromastia Discharge Disposition: Home or Self Care07/09/2025 11:00 AM EDTPre-Operative Nurse Assessment [facility] Pre Admission [address] [place] [address] Kyrie Lopez MD Pre-op testing (Primary Dx)from Last 3 Months Family History Medical HistoryRelationNameCommentsBleeding or Clotting ProblemsFatherhx of blood clot and unknown kind of clotting disorderBleeding or Clotting Problems Paternal Aunthx of blood clot and unknown kind of clotting disorderRelationName StatusCommentsFatherPaternal Aunt Social History Tobacco UseTypesPacks/DayYears UsedDateSmoking Tobacco: FormerCigarettes Smokeless Tobacco: Never Tobacco Cessation:Counseling Given: Not Answered Comments:Quit 2014 Alcohol UseStandard Drinks/WeekCommentsNever0 (1 standard drink = 0.6 oz pure alcohol)AUDIT-CAnswerDate RecordedQ1: How often do you have a drink containing alcohol?Never07/24/2025Q2: How many drinks containing alcohol do you have on a typical day when you are drinking?Patient does not drink07/24/2025Q3: How often do you have six or more drinks on one occasion?Never07/24/2025CommentsNo Sex and Gender InformationValueDate RecordedSex Assigned at BirthFemale 12/22/2024 1:26 PM EDTLegal ThrFkrtbh88/14/2025 1:24 PM EDTGender IdentityFemale 12/22/2024 1:26 PM EDTSexual GjqcykzrurnHhabopbt76/14/2025 1:26 PM EDT Last Filed Vital Signs Vital SignReadingTime TakenCommentsBlood Dhoiyuzc965/9107/24/2025 6:45 PM EDT Ixaey488307/24/2025 6:45 PM JQTOxcahjdxfbk43.6 ??C (97.8 ??F)07/24/2025 6:00 PM EDTRespiratory Seus1035 6:45 PM EDTOxygen Wwrdjuzznp00%07/24/2025 6:45 PM EDTInhaled Oxygen Concentration--Vahuzh95.8 kg (198 lb)07/24/2025 12:42 PM ZKVCiffwm436.8 cm (5' 10 )07/24/2025 12:42 PM EDTBody Mass Index28.411 12:42 PM EDT Plan of Treatment Health MaintenanceDue DateLast DoneCommentsHEPATITIS C VIRUS UYJSXBAPE1971 HIFQUOH4401/13/1971HIV SCREENING FCYPCDEBGE65/05/1986HEP B VACCINE (1 of 3 - 19+ 3-dose series)1990TDAP (ADULT)1990CERVICAL CANCER SCREENING CQCLZWKGQY65/05/1992LIPID OQBLIYHDT79/05/2011PNEUMOCOCCAL VACCINE SERIES (1 of 1 - PCV)2021ZOSTER (SHINGLES) VACCINE (1 of 2)2021MAMMOGRAM SCREENING MGPRJNELUJ86/28/202304/, 11/02/2019, 10/21/2018, Additional history existsCOVID-19 VACCINE (1 - season)2025INFLUENZA VACCINE (#1) /, 07/14/2023, 07/16/2020, Additional history exists COLORECTAL CANCER SCREENING XRUSTLDBDU40, 2POTASSIUM Procedures Procedure NamePriorityDate/TimeAssociated DiagnosisCommentsCARDIAC RHYTHMRoutine 07/25/2025 10:08 AM EDTDEVICE VNTURLYDKVJxoeylq42/15/2025 10:04 AM EDTSURGICAL PATHOLOGY HIGZOTVRhbjwgh42/14/2025 3:28 PM EDT Macromastia PROCEDURE - JDQXCMIAPLBialybk75/14/2025 3:03 PM EDT [place] BREAST FELVGAEQQ58/14/2025 2:51 PM EDT Macromastia Case Notes speech pathologist assistant COMPREHENSIVE METABOLIC PRGWNTszas18/29/2025 12:14 PM EDT Pre-op testing HC CBC EDIFF & PJQFDVVNSjmhp83/29/2025 12:14 PM EDT Pre-op testing BVMTdhbqot05/29/2025 11:28 AM EDT Pre-op testing from Last 3 Months Results * CARDIAC RHYTHM (SCANNED) (07/25/2025 10:08 AM EDT) Narrative Authorizing ProviderResult TypeResult StatusHistorical ProviderECG ORDERABLES Final Result * DEVICE EVALUATION (SCANNED) (07/25/2025 10:04 AM EDT)Anatomical Region LateralityModalityOther Narrative Authorizing ProviderResult TypeResult StatusHistorical ProviderPROC - OPERATIVE Final Result * SURGICAL PATHOLOGY REQUEST (07/24/2025 3:28 PM EDT)ComponentValueRef RangeTest MethodAnalysis TimePerformed AtPathologist SignatureSURG PATH RESULT Surgical Final Report Patient Name: CARMEN DAVIS Med. Rec. #: [id number] Physician: KYRIE LOPEZ Specimen(s) Received A: Left breast tissue B: Right breast tissue Other Related Clinical Data Not provided Clinical / Pre-Operative Diagnosis Macromastia Post-Operative Diagnosis Not provided ?? Surgical Procedure Breast reduction Diagnosis: A. Left Breast Tissue, excision: -Benign Skin and Fibro-fatty Tissue Consistent with Patient History B. Right Breast Tissue, excision: -Benign Skin and Fibro-fatty Tissue Consistent with Patient History Electronically Signed [facility]/07/26/2025 Cruz Omalley MD Gross Description: A. The specimen is received in formalin and labeled left breast tissue, Carmen Davis and date of 1970. ??The specimen consists of multiple fragments of pink means skin with attached subcutaneous tissue measuring 23 x 17.4 x 3.3 cm in aggregate. ??The surface of the skin is grossly unremarkable with no masses or lesions identified. ??A outside industrial sales representative section is submitted in 1 cassette labeled A. B. The specimen is received in formalin and labeled right breast tissue, Carmen Davis and date of 1970. ??The specimen consists of multiple fragments of pink means skin with attached subcutaneous tissue measuring 28.4 x 15.5 x 4.3 cm in aggregate. ??The surface of the skin is grossly unremarkable with no masses or lesions identified. ??A outside industrial sales representative section is submitted in 1 cassette labeled B. Billing Fee Code(s) A: 99819 B: [id number], OSUSpecimen (Source)Anatomical Location / LateralityCollection Method / VolumeCollection TimeReceived TimePermanentTISSUE SPECIMEN / Unknown 07/24/2025 3:27 PM EDTPermanentTISSUE SPECIMEN / Jajnzns7607/24/2025 3:28 PM EDT Narrative Authorizing ProviderResult TypeResult StatusGregory Vinny Lopez MDSURG PATHFinal ResultPerforming OrganizationAddressCity/State/ZIP CodePhone Number LAB, [facility] [address] [place] [address] * [place] PROCEDURE - INTUBATION SUPRAGLOTTIC AIRWAY (07/24/2025 3:03 PM EDT) Anatomical RegionLateralityModalityOther Narrative 07/24/2025 3:03 PM EDT EDITA Fonseca 07/24/2025 3:11 PM *INTUBATION Date/Time: 07/24/2025 3:03 PM Authorized by: EDITA Fonseca ?? Performed by: EDITA Fonseca GENERAL STAFF INFORMATION: Patient location during procedure: OR Room: [address] [place] [address] No anticipated increased risk of difficult airway INDICATIONS AND PATIENT CONDITION: Sedation level: general anesthesia Patient position: supine Manual Inline Stabilization not maintained throughout Preoxygenated: yes Preoxygenation method: bag mask Mask difficulty assessment: 0 - not attempted Indication(s) for intubation: general anesthesia FINAL AIRWAY DETAILS: Final airway type: supraglottic airway Final airway difficulty assessment: airway not difficult Successful airway: i-gel Size 3 Placement verified by: auscultation and CO2 detection Tube Secured with: tape Number of attempts at approach: 1 Successful Placement?: Yes ?? Keller Blade: Removed intact by performing provider. Atraumatic, lips/teeth at baseline. Medication administered at: 07/24/2025 3:03 PM Authorizing ProviderResult TypeResult StatusJohn KOHLERBEDSIDE PROCEDURESFinal Result * (ABNORMAL) CBC, EDIF, PLATELET (07/09/2025 12:14 PM EDT)ComponentValueRef RangeTest MethodAnalysis TimePerformed AtPathologist SignatureWBC (WHITE BLOOD COUNT)4.73.6 - 11.0 10*3/[address] StreetRBC3.74(L)4.0 - 5.4 10*6/uL[address]HEMOGLOBIN (HGB)9.8(L)12.0 - 16.0 G/DL54 [address]ETHEMATOCRIT (HCT)29.6(L)36.0 - 48.0 %[address]Mean Cell Kspvcn44.0(L)80.0 - 100.0 [address]Mean Cell HGB 26.226.0 - 35.0 [address]Me Cell HGB Ddgxlbzappeea23.227.0 - 37.0 G/DL54 [address]ETRBC Ekrcgzkyzicg63.6(H)11.5 - 14.5 %[address]PLATELET FMWXF993667 - 400 10*3/[address] StreetMe Platelet Volume 7.57.4 - 11.[address] DIFFERENTIAL TYPEAUTO DIFF%[address]NEUTROPHILS53.437.0 - 75.0 %[address]LYMPHOCYTE35.420.0 - 55.0 %[address]MONOC[address]TE %9.10.0 - 10.0 %[address]EOSINOPHIL %1.60.0 - 11.0 %[address]BASOPHIL %0.50.0 - 2.0 %[address]Absolute Neutrophil Count2.5 1.4 - 6.5 10*3/[address] LYMPHOCYTES, ABSOLUTE1.71.2 - 3.4 10*3/[address]MONOCYTES, ABSOLUTE0.40.0 - 0.7 10*3/[address]ABSOLUTE EOSINOPHIL COUNT0.1 0.0 - 0.7 10*3/uL[address] ABSOLUTE BASOPHIL COUNT0.00.0 - 0.2 10*3/uL54 [address]ETSpecimen (Source)Anatomical Location / Laterality Collection Method / VolumeCollection TimeReceived JghaZbhog88/29/2025 12:14 PM EDT07/09/2025 12:17 PM EDT Narrative Authorizing ProviderResult TypeResult StatusCarlos L Rico DOHEMATOLOGY ORDERABLESFinal ResultPerforming OrganizationAddressCity/State/ZIP CodePhone Number [address] [address] * (ABNORMAL) COMPREHENSIVE METABOLIC PANEL (07/09/2025 12:14 PM EDT)Component ValueRef RangeTest MethodAnalysis TimePerformed AtPathologist SignatureGlucose 9470 - 100 MG/DL[address] Comment: NORMAL <100 mg/dL PREDIABETES 101-126 mg/dL DIABETES 126 mg/dL or higher NIB129 - 20 mg/dL[address] CREATININE SERUM0.59(L)0.70 - 1.20 mg/dL[address]ETSODIUM137137 - 145 MMOL/[address]Potassium4.33.5 - 5.1 MMOL/[address]CHLORIDE97(L)98 - 107 MMOL/[address]Comment:Please note: Triglyceride levels of 600mg/dL or higher may positively bias chloride results by approximately 2.1 mmolCALCIUM9.48.4 - 10.2 mg/dL[address]PROTEIN, TOTAL6.66.3 - 8.2 g/dL54 [address]Albumin3.83.5 - 5.0 g/dL[address]BILIRUBIN, TOTAL0.1(L)0.2 - 1.3 mg/dL54 [address]AST1914 - 36 U/[address]ALKAL[address] LZBAOYMYXUS6200 - 126 U/[address]CARBON DIOXIDE (CO2)33(H)22 - 30 MMOL/L [address]A/G Ratio1.4RATI[address]ALT10<35 U/[address]ESTIMATED HYE530tt/min/1.73sq.[address]GFR COMMENTAverage GFR for 50-59 years old = 93.[address]Comment: Chronic Kidney disease, GFR = <60. Kidney failure, GFR = <15. The GFR estimate is not adjusted for extreme body surface area or acute process, nor has it been validated for women or ethnic groups other than and . MDRD Equation Specimen (Source)Anatomical Location / LateralityCollection Method / Volume Collection TimeReceived RqttBieao53/29/2025 12:14 PM EDT07/09/2025 12:17 PM EDT Narrative Authorizing ProviderResult TypeResult StatusCarlos L Rico DOCHEMISTRY ORDERABLES Final ResultPerforming OrganizationAddressCity/State/ZIP CodePhone Number [address] [address] * ECG (07/09/2025 11:28 AM EDT)Specimen (Source)Anatomical Location / Laterality Collection Method / VolumeCollection TimeReceived Time07/09/2025 11:28 AM EDT 07/09/2025 12:17 PM EDT Narrative Authorizing ProviderResult TypeResult StatusCarlos L Rico DOECG ORDERABLESFinal ResultPerforming OrganizationAddressty/State/ZIP CodePhone Number RADIOLOGY from Last [address] [place] [address] Care Teams Team MemberRelationshipSpecialtyStart DateEnd Date Krystal Lamb PA [address] [facility] [address] [place] [address] PCP - GeneralPhysician Assistant01/02/25
--- OUTSIDE RECORDS SUMMARY | 2025-10-02 08:12 | XMS_ITS | Clinical Summary ---
Author Organization [facility] Address [address] [place] [address] Phone Care Team Providers Care Activities Director Name Role Phone Nany Obrien MD Primary Care Provider [phone] Social History Tobacco UseTypesPacks/DayYears UsedDateSmoking Tobacco: Never Assessed CommentsUnknownSex and Gender InformationValueDate RecordedSex Assigned at Not on fileLegal PjvBwfopk19/26/2022 7:34 AM ESTGender IdentityNot on fileSexual OrientationNot on file Last Filed Vital Signs Vital SignReadingTime TakenCommentsBlood Cyndexsa994/7609/25/2021 1:11 PM EST Ojgsu370909/25/2021 1:11 PM ESTTemperature--Respiratory Rate--Oxygen Saturation-- Inhaled Oxygen Concentration--Ovlzky969 kg (248 lb)09/25/2021 1:11 PM ESTHeight 177.8 cm (5' 10 )09/25/2021 1:11 PM ESTBody Mass Index35.5809/25/2021 1:11 PM EST Plan of Treatment Not on file Care Teams Team MemberRelationshipSpecialtyStart DateEnd Date Nany Obrien MD [address] [facility] [address] [place] [address] PCP - Nhyhgdu85/16/21
--- OUTSIDE RECORDS SUMMARY | 2025-10-02 08:12 | XMS_ITS | Clinical Summary ---
Author Organization [facility] Address [address] [place], [place] [address] Care Team Providers Care Electrical Engineering Drafting Officer Name Role Phone Nany Obrien MD Primary Care Provider [phone] Sterling Pearson MD Unavailable [phone] Allergies No known active allergies Medications MedicationSigDispense QuantityRefillsLast FilledStart DateEnd DateStatus Pregabalin (LYRICA) 200 mg capsule Take 200 mg by mouth three times daily.Active oxyCODONE ER (OXYCONTIN) 10 mg 12 hr tablet Take 10 mg by mouth every 12 hours.Active OXcarbazepine (TRILEPTAL) 150 mg tablet Take 150 mg by mouth three times daily.Active baclofen (LIORESAL) 10 mg tablet Take 10 mg by mouth four times daily.Active estradiol (ESTRACE) 2 mg tablet Take 2 mg by mouth once daily.Active tolterodine ER (DETROL LA) 4 mg 24 hr capsule Take 4 mg by mouth twice daily.Active IBUPROFEN (MOTRIN ORAL) Take by mouth.Active clonazePAM (KLONOPIN) 1 mg tablet Take 1 mg by mouth daily at bedtime.Active metoprolol succinate ER (TOPROL XL) 25 mg 24 hr tablet Take 25 mg by mouth once daily.Active traZODone (DESYREL) 50 mg tablet Take 50 mg by mouth daily at bedtime. Take 1 to 2 tablets by mouth at bedtime as neededActive venlafaxine (EFFEXOR) 75 mg tablet Take 75 mg by mouth every morning. Take two capsules by mouth every morning Active SUMAtriptan (IMITREX) 100 mg tablet Take 100 mg by mouth as needed for Migraine Headache (see administration instructions) (take one tablet by mouth as needed for migraine may repeat once in 2 hours max 2 tabls daily 4 tabs in one week).Active predniSONE (DELTASONE) 10 mg tablet Take 10 mg by mouth once daily. Take 4 tabs daily for 4 days, 3 tabs for 4 days, 2 tabs for 4 days,1 tab for 4 days QTY#40Active Active Problems ProblemNoted DateDiagnosed DateSpinal cord stimulator hmojya4807/23/2016 Spondylolisthesis of lumbar epbgho2307/23/2016S/P lumbar iknhelouupu57/13/2016S/P lumbar upgrik4807/23/2016Anxiety and depressionAnemiaArthritisBursitisDiabetesHigh cholesterolLyme diseaseBack painBMI 31.0-31.9,adultSmokerExcessive sweating Tremor Family History Medical HistoryRelationCommentsBlood DiseaseFatherCancerMaternal Grandmother CancerPaternal GrandfatherDiabetesPaternal GrandfatherRelationStatusComments FatherMaternal GrandmotherPaternal Grandfather Social History Tobacco UseTypesPacks/DayYears UsedDateSmoking Tobacco: Some DaysCigarettes0.233 Alcohol UseStandard Drinks/WeekCommentsNo0 (1 standard drink = 0.6 oz pure alcohol)CommentsNoSex and Gender InformationValueDate RecordedSex Assigned at BirthNot on fileLegal GizOtrsxr77/19/2016 1:29 PM EDTGender Identity Not on fileSexual OrientationNot on fileOccupationIndustryJob Start DateJob 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 Datenot working/disabled/retiredNot on fileNot on fileNot on file Last Filed Vital Signs Vital SignReadingTime TakenCommentsBlood Rohlmzrh231/7208 3:53 PM EDT Zpvbq204105/11/2017 3:53 PM EDTTemperature--Respiratory Lygd7733 8:48 AM EDTOxygen Saturation--Inhaled Oxygen Concentration--Rkayju210.1 kg (225 lb) 05/11/2017 3:53 PM LUAKgxcws217.8 cm (5' 10 )05/11/2017 3:53 PM EDTBody Mass Index32.28005/11/2017 3:53 PM EDT Plan of Treatment Health MaintenanceDue DateLast DoneCommentsAnxiety Pwhvamkpv96/05/1989Depression Rvdmwqvyd71/05/1989HIV Exylqhpwq45/05/1989Hepatitis C Ppwpwneyr23/05/1989 DTaP,Tdap,Td Vaccine (1 - Tdap)1990Hepatitis B Vaccine (1 of 3 - 19+ 3- dose series)1990Cervical Cancer Aintqpfdn73/05/1992Mammogram Screening 2011CT Gfhfrsufoceb28/05/2016Cologuard (FIT-DNA)01/14/2016Colonoscopy 01/14/2016Colorectal Cancer Niqvyopic63/05/2016Diabetes Qhjyjuasd19/05/2016Fecal Occult Blood01/14/2016Lipid Eldnefxwt53/05/1234Vzdrcaytcxvnx04/05/2016 Pneumococcal Vaccine: 50+ (1 of 1 - PCV)2021hingrix Vaccine (1 of 2) 2021ovid-19 Vaccine (1 - 2024- season)2025Influenza Vaccine (#1) 2025RSV Vaccine (1 - 1-dose 75+ series)2046 Insurance MemberSubscriberPlan / Payer (Effective 2014-Present)Name:Carmen Elise Relation to Subscriber:SelfName:Carmen Elise Payer ID:[id number] (NAIC) Group ID:[id number] Type:PPO Address: [address] [place] [id number] Care Teams Team MemberRelationshipSpecialtyStart DateEnd Date Nany Obrien MD [address] [facility] [address] [place] [address] PCP - Generalmi Medicine05/29/16 Sterling Pearson MD [address] [facility] [address] [place] [address] ReferringAnesthesiology05/29/16
--- OUTSIDE RECORDS SUMMARY | 2025-10-02 08:12 | XMS_ITS | Encounter Summary ---
Author Organization [facility] Address [address] [place] [address] Care Team Providers Care Environmental Services Attendant Name Role Phone Nany Obrien MD Primary Care Provider [phone] Encounter Details DateTypeDepartmentCare Team (Latest Contact Info)Plzknmmdatb24/12/2025bstract [facility] [address] [place] [address] [place] [id number] Nany Obrien MD [address] [place] [address] [place], [place] [id number] Social History Tobacco UseTypesPacks/DayYears UsedDateSmoking Tobacco: FormerCigarettes1.531.7 [...] a week03/06/2025 How often do you attend religious or taoism services?More than 4 times per year 03/06/2025Do you belong to any clubs or organizations such as religious groups, unions, fraternal or athletic groups, or school groups?Yes03/06/2025ttends Club or Organization MeetingsNot on file03/06/2025re you , , , , never , or living with a partner?Gbffudj1603/06/2025UDIT-C AnswerDate RecordedQ1: How often do you have [...] care, and heating?Hard03/06/2025PHQ-2Answer Date RecordedPatient Health Questionnaire-2 Izhvo45410/20/2024[facility] [place] [facility] - Occupational Stress QuestionnaireAnswerDate RecordedDo you feel stress - tense, restless, nervous, or anxious, or unable to sleep at night because yourmind is troubled all the time - these days?Only a iglhzo9503/06/2025 Exercise Vital SignAnswerDate RecordedOn average, how many [...] steady place to sleep or slept in [facility] (including now)?No11/16/2023Housing Stability Vital SignAnswerDate RecordedIn the last 12 months, was there a time when you were not able to pay the mortgage or rent on time?No03/06/2025Number of Times Moved in the Last Year Not on file03/06/2025t any time in the past 12 months, were you homeless or living in a assisted (including now)?No03/06/2025CommentsNoSex and Gender InformationValueDate RecordedSex Assigned at UqwkrRzsuba59/12/2025 8:22 AM EST Legal CiwHipnyg87/15/2023 7:21 PM EDTGender RidcvtlbPfmwyg53/12/2025 8:22 AM EST Sexual OrientationNot on filedocumented as of this encounter Plan of Treatment DateTypeDepartmentCare Team (Latest Contact Info)Vqemlkbhckz31/12/2026 9:30 AM ESTOffice Visit [facility] [address] [place] [phone] Vamsi Garza, PLATER APPRENTICE [address] [place] [address] 03/01/2026 10:15 AM EDTOffice Visit [facility] [address] [facility] [address] [facility] [place] [address] Amarjit Whitlock, DO [address] [facility] [address] [place] [address] documented as of this encounter Goals GoalPatient Goal TypeAssociated ProblemsRecent ProgressPatient-Stated?Author Help patient manage antidepressant medication Care PlanPatient on antidepressant monitoring Nany Shaver MD Baseline PHQ-9 Care PlanBaseline PHQ-9Nany Mcclain, MDdocumented as of this encounter Visit Diagnoses Not on filedocumented in this encounter Additional Health Concerns Active ProblemsNoted DateDiagnosed DatePatient on antidepressant monitoring plan 5Baseline PHQ-9011/14/2024documented as of this encounter Care Teams Team MemberRelationshipSpecialtyStart DateEnd Date Nany Obrien MD [address] [facility] 110 [place] [address] PCP - GeneralFamily Medicine03/10/23documented as of this encounter
--- OUTSIDE RECORDS SUMMARY | 2025-10-02 08:12 | XMS_ITS | Encounter Summary ---
Author Organization [facility] Address [address] [place] [address] Care Team Providers Care General Engineer Name Role Phone Nany Obrien MD Primary Care Provider [phone] Reason for Visit * ReasonOnset DateCommentsMed Tymjct3410/02/2025 Encounter Details DateTypeDepartmentCare Team (Latest Contact Info)Kkwjlfovqap52/23/2025Refill [facility] [address] [place] [address] [place] [address] Krystal Lamb, PA [address] [place] [address] [place] [address] Sleep disturbance Social History Tobacco UseTypesPacks/DayYears UsedDateSmoking Tobacco: FormerCigarettes1.531.7 [...] a week03/06/2025 How often do you attend sabianist or episcopalian services?More than 4 times per year 03/06/2025Do you belong to any clubs or organizations such as sabianist groups, unions, fraternal or athletic groups, or school groups?Yes03/06/2025ttends Club or Organization MeetingsNot on file03/06/2025re you , , , , never , or living with a partner?Vqhpajp6603/06/2025UDIT-C AnswerDate RecordedQ1: How often do you have [...] care, and heating?Hard03/06/2025PHQ-2Answer Date RecordedPatient Health Questionnaire-2 Xqrhl14710/20/2024[facility] [place] [facility] - Occupational Stress QuestionnaireAnswerDate RecordedDo you feel stress - tense, restless, nervous, or anxious, or unable to sleep at night because yourmind is troubled all the time - these days?Only a sidonx6003/06/2025 Exercise Vital SignAnswerDate RecordedOn average, how many [...] steady place to sleep or slept in [facility] (including now)?No11/16/2023Housing Stability Vital SignAnswerDate RecordedIn the last 12 months, was there a time when you were not able to pay the mortgage or rent on time?No03/06/2025Number of Times Moved in the Last Year Not on file03/06/2025t any time in the past 12 months, were you homeless or living in a jail (including now)?No03/06/2025CommentsNoSex and Gender InformationValueDate RecordedSex Assigned at KdciiKpqkep93/12/2025 8:22 AM EST Legal RgdDfqxbl64/15/2023 7:21 PM EDTGender PhcdurdhQdvqdm51/12/2025 8:22 AM EST Sexual OrientationNot on filedocumented as of this encounter Miscellaneous Notes * Telephone Encounter - ALVARADO Ramos - 10/02/2025 8:09 AM EST OARRS reviewed, Rx sent into patient's pharmacy. documented in this encounter Plan of Treatment DateTypeDepartmentCare Team (Latest Contact Info)Wxrxuepklbj40/12/2026 9:30 AM ESTOffice Visit [facility] [address] [place] [address] Vamsi Garza, CREDIT PRODUCT ANALYST [address] [place] [address] 03/01/2026 10:15 AM EDTOffice Visit [facility] [address] [facility] [place] [address] Amarjit Whitlock, DO [address] [facility] [address] [place] [address] documented as of this encounter Goals GoalPatient Goal TypeAssociated ProblemsRecent ProgressPatient-Stated?Author Help patient manage antidepressant medication Care PlanPatient on antidepressant monitoring Nany Shaver MD Baseline PHQ-9 Care PlanBaseline PHQ-9Nany Mcclain, MDdocumented as of this encounter Visit Diagnoses Diagnosis Sleep disturbance Unspecified sleep disturbance documented in this encounter Additional Health Concerns Active ProblemsNoted DateDiagnosed DatePatient on antidepressant monitoring plan 5Baseline PHQ-9011/14/2024documented as of this encounter Care Teams Team MemberRelationshipSpecialtyStart DateEnd Date Nany Obrien MD [address] [facility] 110 [place] [address] PCP - GeneralFamily Medicine03/10/23documented as of this encounter
--- OUTSIDE RECORDS SUMMARY | 2025-10-02 08:12 | XMS_ITS | Clinical Summary ---
Author Organization [facility] Address [address] [place] [address] Care Team Providers Care Protection Manager Name Role Phone Nany Worley MD Primary Care Provider [phone] Allergies Active AllergyReactionsCriticalityNoted DateCommentsDextromethorphan-Bupropion ZdCwiokgnkOit89/04/2025 Feeling Spacey Duloxetine AtgFttajWih90/17/2025 Excessive sweating Vyfmiulrcudtp17/31/2023 Other Reaction(s): Unknown PmzyhxpvbykMfwzlzqwZun50/28/2025 Medications MedicationSigDispense QuantityRefillsLast FilledStart DateEnd DateStatus lidocaine (Lidoderm) 5 % patch APPLY 1 PATCH TO SKIN ONCE A DAY NEEDED FOR PAIN03/09/2024ctive Potassium Gluconate ER 595 MG tablet controlled-release Take by mouth DailyActive tiZANidine (Zanaflex) 4 MG tablet Take 4 mg by mouth 3 (three) times a day as needed for muscle ljtczp1711/03/2023 Active estradiol (Vivelle-DOT) 0.1 MG/24HR Indications:Hot flashes due to menopausePlace 1 patch over 96 hours on the skin 2 (two) times a week 24 patch 305///ctive traZODone (Desyrel) 50 MG tablet Indications:Primary insomniaTake 1 tablet (50 mg) by mouth as needed at bedtime for sleep 30 tablet 5Active oxybutynin XL (Ditropan-XL) 15 MG 24 hr tablet Take 15 mg by mouth Daily5Active pregabalin (Lyrica) 200 MG capsule Indications:Chronic pain syndrome,Numbness and tingling of both legsTake 1 capsule (200 mg) by mouth in the morning and 1 capsule (200 mg) in the evening and 1 capsule(200 mg) before bedtime. 90 capsule 5Active traZODone (Desyrel) 150 MG tablet Indications:Primary insomniaTAKE 1 TABLET BY MOUTH AT BEDTIME 30 tablet 5Active Ascorbic Acid (Vitamin C) 500 MG capsule Take 55 mg by mouth 1 (one) time each day5Active docusate sodium (Colace) 100 MG capsule Take 100 mg by mouth in the morning and 100 mg before bedtime.Active ferrous gluconate (Fergon) 324 (37.5 Fe) MG tablet Indications:Microcytic anemiaTake 1 tablet (324 mg) by mouth in the morning. Take with food. 30 tablet 5Active calcium carbonate (Tums) 500 MG chewable tablet Chew 500 mg 4 (four) times a day as needed for indigestion or heartburnActive ferrous gluconate (Fergon) 324 (38 Fe) MG tablet Indications:Microcytic anemiaTake 1 tablet (324 mg) by mouth in the morning. Take with meals. 30 tablet 5Active modafinil (Provigil) 200 MG tablet Indications:Obstructive sleep apneaTake 1 tablet (200 mg) by mouth in the morning. 30 tablet 5Active furosemide (Lasix) 40 MG tablet Indications:Edema, unspecified typeTAKE 1 TABLET (40 MG) BY MOUTH IN THE MORNING AND AT BEDTIME 60 tablet 5Active traMADol (Ultram) 50 MG tablet Indications:FibromyalgiaTAKE 1 TABLET (50 MG) BY MOUTH EVERY 6 HOURS NEEDED FOR SEVERE PAIN 120 tablet 5Active valACYclovir (Valtrex) 1 g tablet Indications:Recurrent cold soresTake 2 tablets (2,000 mg) by mouth in the morning and 2 tablets (2,000 mg) before bedtime. 4 tablet 5Active desvenlafaxine (Pristiq) 100 MG 24 hr tablet Indications:Moderate episode of recurrent major depressive disorder (HCC)Take 1 tablet (100 mg) by mouth Daily Do not crush, chew, or split. 30 tablet 5Active clonazePAM (KlonoPIN) 1 MG tablet Indications:Sleep disturbanceTake 1 tablet (1 mg) by mouth at bedtime 30 tablet /ctive furosemide (Lasix) 40 MG tablet Indications:Edema, unspecified typeTake 1 tablet (40 mg) by mouth Daily /01/2025Discontinued traMADol (Ultram) 50 MG tablet Indications:FibromyalgiaTake 1 tablet (50 mg) by mouth every 6 (six) hours if needed for severe pain 120 tablet /06/2025Discontinued modafinil (Provigil) 200 MG tablet Indications:Obstructive sleep apneaTake 1 tablet (200 mg) by mouth in the morning. 30 tablet /10/2024Discontinued clonazePAM (KlonoPIN) 1 MG tablet Indications:Sleep disturbanceTake 1 tablet (1 mg) by mouth at bedtime 30 tablet Discontinued(Reorder) valACYclovir (Valtrex) 1 g tablet Indications:Recurrent cold soresTake 2 tablets (2,000 mg) by mouth in the morning and 2 tablets (2,000 mg) before bedtime. 4 tablet /08/2025Discontinued(Reorder) Desvenlafaxine ER 50 MG tablet sustained-release 24 hour Indications:Moderate episode of recurrent major depressive disorder (HCC)Take 50 mg by mouth Daily 30 tablet Discontinued(Dose adjustment) cephalexin (Keflex) 500 MG capsule Indications:Acute cystitis without hematuriaTake 1 capsule (500 mg) by mouth in the morning and 1 capsule (500 mg) in the evening and 1 capsule(500 mg) before bedtime. Do all this for 10 days. 30 capsule /Expired Active Problems ProblemNoted DateDiagnosed DateRecurrent cold sores07/17/2025Type 2 diabetes mellitus with diabetic finkfmeuvbkkwz65/04/2025 Assessment & Plan (11/14/2024 4:42 PM EST): No Tobacco use Follow ADA 1800 diet low carbohydrate Continue Med Compliance Goal LDL less than 100Goal BP 130/80 Goal HgbA1c < 7.0% Monitor Feet, monitor for infection Needs Exercise Yearly eye exams Prior to your visit today we reviewed your chart and outlined testing and treatment needed foryour care. Reviewed poissble complications of diabetes including, loss of vision, kidney failure and increased risk of heart attacks and stroke. We made recommendations on how to control your blood sugars, and minimize your risk of these complications. We discussed your current barriers to a healthy living and importance of healthy diet and exercise. Xzaphdic10/09/9688Pxgveph33/09/2025nkle swelling, left05/23/20245981Pukvb11/13/2024 Tension igoqrjlj53/13/2024 Assessment & Plan (05/23/2024 9:42 AM EDT): Has tried Nurtec in the past. Ineffective. More likely Tension Type 2 diabetes mellitus without jaqmxiaghrfpw07/13/2024 Assessment & Plan (05/23/2024 9:43 AM EDT): Last A1c was 5.8. Diet Controlled No Tobacco use Follow ADA 1800 diet low carbohydrate Continue Med Compliance Goal LDL less than 100Goal BP 130/80 Goal HgbA1c < 7.0% Monitor Feet, monitor for infection Needs Exercise Yearly eye exams Prior to your visit today we reviewed your chart and outlined testing and treatment needed foryour care. Reviewed poissble complications of diabetes including, loss of vision, kidney failure and increased risk of heart attacks and stroke. We made recommendations on how to control your blood sugars, and minimize your risk of these complications. We discussed your current barriers to a healthy living and importance of healthy diet and exercise. Positive SASCHA (antinuclear antibody)4Acute cystitis without hematuria 01/31/2024 Assessment & Plan (01/31/2024 9:55 AM EDT): Add Probiotic to help replenish the good bacteria that are destroyed by the Antibiotics Florastor Florajen Align or try Activia in Yogurt Probiotics reduce the risk of antibiotic induced diarrhea Pyelonephritis is an ascending infection from the bladder to the kidneys. This can make people veryill. Symptoms include fevers, High HR, Lo BP and severe nausea and vomiting and back pain, could bepyelonephritis. Go to ER for fluids should the symptoms worsen. Frequency of grkpygbpk45/22/2024symptomatic microscopic ccerfbazg88/06/2024 Difficulty hxvuzj8711/16/2023Urinary uimpmaxdj01/06/2024Overweight (BMI 25.0-29.9) 11/16/2023ilateral lower extremity edema09/07/2023Microcytic jwiqow9505/26/2023 Vxkygd7705/26/2023Excessive zrksqfyk95/16/2023bnormal blood ftivaujjf67/30/2023 Acute non-recurrent maxillary /30/2023 Assessment & Plan (11/14/2024 4:45 PM EST): Add Probiotic to help replenish the good bacteria that are destroyed by the Antibiotics Florastor Florajen Align or try Activia in Yogurt Probiotics reduce the risk of antibiotic induced diarrhea Adjustment disorder with depressed mood03/09/2023llergic evpnbitf16/30/2023 Carpal tunnel syndrome, paorbilkr55/30/2023ognitive /30/2023 Constipation by delayed colonic gfyyvjp7803/09/20231755Hlohogtsivch82/30/2023 Difficulty kvujqvv3003/09/2023Esophageal jhkfkp5203/09/2023hronic pain syndrome 03/09/20239826Vquqbdybbrap62/30/2023Hand qtyigfrk92/30/2023History of hip replacement, total03/09/2023Hot flashes due to vtabfuols44/30/2023lucose intolerance (impaired glucose tolerance)03/09/20235343Ccqjasozhvpsbc14/30/2023 Arthritis of left knee03/09/2023rthritis of right knee03/09/2023Internal derangement of left knee03/09/2023Internal derangement of right knee03/09/2023 Lyme lfrjhkm9803/09/2023Memory loss03/09/2023Migraine without aura03/09/2023 Mucocele, jyzkyn0303/09/2023Numbness and tingling of both legs03/09/2023 Obstructive sleep apnea03/09/2023eripheral qizzhubxdu98/30/2023Excessive zappvjzqhn17/30/4115Fatk62/30/2023Reflux pjzrushfdzs60/30/2023Scoliosis 03/09/2023Spinal stenosis of lumbar region without neurogenic claudication 03/09/20234771Mallnhafzau68/30/2023SUI (stress urinary incontinence, female) 03/09/2023Systemic lupus erythematosus, yxrawslhxdg38/30/2023 Assessment & Plan (11/14/2024 4:41 PM EST): F/Up with rheumatology Assessment & Plan (05/23/2024 9:43 AM EDT): Would Benefit from seeing rheumatology Thyroid zwanxj1003/09/2023Unspecified inflammatory spondylopathy, cervical region 03/09/2023Urge incontinence of urine03/09/2023Vaginal uytnkve9803/09/2023rimary mwtdgniqkgviiz31/01/2021Former opfwik7601/03/2020S/P lumbar ccdnxq8307/23/2016S/P lumbar eqjysuhqupx66/13/2016Spinal cord stimulator bxtqzq0207/23/2016 Spondylolisthesis of lumbar ewtqxh7807/23/2016Muscle /18/2016Skin sensation xqsawtjqfas93/05/2016History of gestational diabetes mellitus 11/18/2015Postural kyphosis of thoracic qiuvej1511/18/2015Primary insomnia 09/17/20158433Bgocrliageiqnd35/25/2013 Assessment & Plan (07/24/2024 1:36 PM EDT): This is a chronic medical condition that is stable since last assessment. No changes in treatment are suggested at this time. Continue Current meds. Rqchupzvel93/12/2010 Assessment & Plan (11/14/2024 4:39 PM EST): After 1 week increase Cymbalta to 60mg Continue Wellbutrin Assessment & Plan (07/24/2024 1:52 PM EDT): Needs to be off of Cymbalta for 3 months due to Tachyphylaxis Consider Bryantulti Generalized anxiety mqpotckf64/01/2008 Resolved Problems ProblemNoted DateDiagnosed DateResolved DateEncounter for well adult exam without abnormal xbilckke90/12/2023 Assessment & Plan (07/24/2024 1:35 PM EDT): Modest Alcohol consumption No Tobacco Seat Belt use Exercise Regularly No Text Drive Social Accountability Hot cgfnbug75/cute pain of right knee/07/2025 Subacute wythdrfpyrby52/31/202311/Mycoplasma hlnyfowou36/30/2023 09/07/2023Sleep nzcdaxnnvpl45/30/202305/Streptococcus efircgzlp36/30/2023 09/07/2023 Encounters DateTypeDepartmentCare YxrcHpcynbbkpzk70/23/2025Refill [facility] [place] [facility] [address] [place] [address] Krystal Lamb PA Sleep ifplmwpnozl70/12/2025bstract [facility] [address] [place] [address] Nany Worley MD 09/20/2025 9:30 AM ESTOffice Visit [facility] [address] [place] [address] Nany Worley MD Bad odor of urine09/20/2025Telephone [facility] [address] [place] [address] Nany Worley MD 09/20/20252450Iqodxe53/11/2025Refill [facility] [address] [place] [address] Krystal Lamb PA Recurrent cold sores09/15/2025Refill [facility] [place] [facility] [address] [place] [address] Krystal Lamb, PA Kcpzjornnrpc83/04/2025[facility] [place] [facility] [address] [place] [address] Krystal Lamb, PA Edema, unspecified type09/07/2025[facility] [address] [place] [address] Krystal Lamb, PA Obstructive sleep apnea09/07/2025[facility]ill [facility] [place] [facility] [address] [place] [address] Krystal Lamb, PA Obstructive sleep apnea08/28/2025[facility] [address] [facility] [address] [place] [address] Nany Worley MD Microcytic vtykeh0308/27/2025 8:25 AM ESTAncillary Procedure [facility] [place] [place] [address] 08/27/2025 8:15 AM ESTOffice Visit [facility] [place] [phone] Vamsi Garza NP Status post total right knee replacement (Primary Dx); Acute pain of right knee08/27/2025bstract [facility] [address] [facility] [address] [place] [address] Nany Worley MD 08/27/2025amboo flowsheet [facility] [place] [phone] Vamsi Garza NP 08/27/20256724Ovsnin69/14/2025External Result Encounter [facility] Unsolicited Kenny Rivero, DO 08/24/2025External Result Encounter [facility] Unsolicited Kenny Rivero, DO 08/24/2025External Result Encounter [facility] Unsolicited Kenny Rivero DO 08/20/2025 9:30 AM ESTOffice Visit [facility] [address] [facility] [address] [place] [address] Krystal Lamb, PA Primary insomnia (Primary Dx); Moderate episode of recurrent major depressive disorder (HCC); Generalized anxiety afermvte86/10/2025bstract [facility] [facility] [address] [facility] [address] [place] [address] Nany Worley MD 08/20/2025amboo flowsheet [facility] [place] [facility] [address] [facility] [address] [place] [address] Krystal Lamb PA 08/20/20258496Ooifse70/09/6720Gqvmmg08/06/2025Refill [facility] [place] [facility] [address] [facility] [address] [place] [address] Krystal Lamb PA Sleep disturbance; Recurrent cold sores08/07/2025 2:30 PM EDTOffice Visit [facility] [place] [facility] [address] [facility] [address] [place] [address] Krystal Lamb PA Type 2 diabetes mellitus with diabetic polyneuropathy, without long-term current use of insulin (HCC) (Primary Dx); Moderate episode of recurrent major depressive disorder (HCC); Generalized anxiety disorder; Depressive ofpzgtsc46/28/5495Pkvstk76/28/2025Refill [facility] [address] [facility] [address] [place] [address] Krystal Lamb PA Obstructive sleep apnea07/25/2025bstract [facility] [address] [place] [address] Nany Worley MD 07/18/2025bstract [facility] [address] [facility] [address] [place] [address] Nany Worley MD 07/18/2025Telephone [facility] [address] [facility] [address] [place] [address] Carla NarayanSP 07/17/2025 2:00 PM EDTOffice Visit [facility] [address] [facility] [address] [place] [address] Krystal Lamb PA Spinal stenosis of lumbar region without neurogenic claudication (Primary Dx); Difficulty waking; Recurrent cold sores; Moderate episode of recurrent major depressive disorder (HCC); Microcytic anemia; Weight loss, iegcpaqwwghwv52/07/2025amboo flowsheet [facility] [place] [facility] [address] [facility] [address] [place] [address] Krystal Lamb PA 07/17/20258121Rjuwsh84/06/8165Ffspdg62/03/2025Refill [facility] [address] [facility] [address] [place] [address] Nany Worley MD Primary bqadrras02/01/2025Telephone [facility] [place] [facility] [address] [facility] [address] [place] [address] Nany Worley MD 07/10/2025Refill [facility] [address] [facility] [address] [place] [address] Krystal Lamb PA Xhydjdqnpine02/25/2025Refill [facility] [address] [facility] [address] [place] [address] Krystal Lamb PA Obstructive sleep apneafrom Last 3 Months Immunizations ImmunizationAdministration DatesNext DueInfluenza, injectable, quadrivalent, preservative free07/14/2023,07/16/2020Influenza, seasonal, injectable, preservative free07/24/2024Influenza, seasonal, intradermal, preservative free 07/08/2017,07/22/2016 Family History Medical HistoryRelationNameCommentsNo Known ProblemsBrotherNo Known Problems DaughterArthritisFatherSteve BlystoneCOPDFatherSteve BlystoneClotting disorder FatherSteve BlystoneHearing lossFatherSteve BlystoneHeart diseaseFatherSteve BlystoneepilepsyFatherSteve BlystoneColon cancerMaternal GrandfatherFrank ScoliosisMotherLucie LongColon cancerPaternal GrandmotherDonnaDDDSister 1 FibromyalgiaSister 1No Known ProblemsSonRelationNameStatusCommentsBrother1 brotherDaughter2 daughtersFatherSteve BlystoneAliveMaternal GrandfatherFrank AliveMotherLucie LongAlivePaternal GrandmotherDonnaSister 1Sister 6KtfmpSgy3 son Social History Tobacco UseTypesPacks/DayYears UsedDateSmoking Tobacco: FormerCigarettes1.531.7 01/27/1983 - 2014Smokeless Tobacco: Former Tobacco Cessation:Counseling Given: Not Answered Comments:Started at age 13 Alcohol UseStandard Drinks/WeekCommentsNot [...] a week03/06/2025 How often do you attend synagogue or religion services?More than 4 times per year 03/06/2025Do you belong to any clubs or organizations such as synagogue groups, unions, fraternal or athletic groups, or school groups?Yes03/06/2025ttends Club or Organization MeetingsNot on file03/06/2025re you , , , , never , or living with a partner?Esifrii3003/06/2025UDIT-C AnswerDate RecordedQ1: How often do you have [...] care, and heating?Hard03/06/2025PHQ-2Answer Date RecordedPatient Health Questionnaire-2 Jatjx72810/20/2024[facility] [place] [facility] Occup[facility] - Occupational Stress QuestionnaireAnswerDate RecordedDo you feel stress - tense, restless, nervous, or anxious, or unable to sleep at night because yourmind is troubled all the time - these days?Only a qoxedm9003/06/2025 Exercise Vital SignAnswerDate RecordedOn average, how many [...] steady place to sleep or slept in ashelter (including now)?No11/16/2023Housing Stability Vital SignAnswerDate RecordedIn the last 12 months, was there a time when you were not able to pay the mortgage or rent on time?No03/06/2025Number of Times Moved in the Last Year Not on file03/06/2025t any time in the past 12 months, were you homeless or living in a fdc (including now)?No03/06/2025CommentsNoSex and Gender InformationValueDate RecordedSex Assigned at IktqqMqzojp13/12/2025 8:22 AM EST Legal TuoMzxdtv98/15/2023 7:21 PM EDTGender JtvpwvzaUaruvq18/12/2025 8:22 AM EST Sexual OrientationNot on file Last Filed Vital Signs Vital SignReadingTime TakenCommentsBlood Eaygwada042/6208/20/2025 9:25 AM EST Hjcbf478308/20/2025 9:25 AM INFYqvzuowqdut67.1 ??C (98.8 ??F)07/17/2025 2:11 PM EDTRespiratory Dhwr121710/20/2024 9:25 AM ESTOxygen Xujzevufyq91%08/20/2025 9:25 AM ESTInhaled Oxygen Concentration--Qwtnmk95.5 kg (193 lb)08/20/2025 9:25 AM EST Ilskgc936.8 cm (5' 10 )08/20/2025 9:25 AM ESTBody Mass Index27.6911 9:25 AM EST Plan of Treatment DateTypeDepartmentCare Team (Latest Contact Info)Rgdqouroccz96/12/2026 9:30 AM ESTOffice Visit [facility] [address] [place] [address] Vamsi Garza, [employer] P[employer]ER [address] [place] [address] 03/01/2026 10:15 AM EDTOffice Visit [facility] [address] [facility] [place] [address] Amarjit Urias, [address] [place] [address] Health MaintenanceDue DateLast DoneCommentsCT Sxbepfwjcmir1971Colonoscopy 1971FIT1971FOBT01/13/19712542Fgxxjkmlbmids1971Diabetes: Retinopathy Kxfuzxkua78/05/1981Diabetes: Hemoglobin A1C, 07/24/2024, 11/04/2023, Additional history existsInfluenza Vaccine (#1) , 07/14/2023, 07/16/2020, Additional history existsPostponed from 06/11/2025 (Patient Refused)Dpcmsouey37/21/01058004/30/2025, 02/05/2022, 02/05/2022, Additional history existsDiabetes: Urine Protein Xazooktmh81/28/2026 08/07/2025, 08/01/2024olorectal Cancer Fcsnppapu39/05/2028FIT-DNA06/15/2028 06/15/2025, 06/09/2022, 06/09/2022Lung Cancer Screening Shared Decision Making DiscontinuedPneumococcal Vaccine: Pediatrics (0 to 5 Years) and At-Risk Patients (6 to 64 Years)Discontinued Goals GoalPatient Goal TypeAssociated ProblemsRecent ProgressPatient-Stated?Author Help patient manage antidepressant medication Care PlanPatient on antidepressant monitoring Nany Shaver MD Baseline PHQ-9 Care PlanBaseline PHQ-9Nany Mcclain MD Procedures Procedure NamePriorityDate/TimeAssociated DiagnosisCommentsURINARY TRACT INFECTION (HTRX)Zepouwa4609/20/2025 9:53 AM EST Bad odor of urine POCT URINALYSIS EPEXLXTDYxpucyk53/11/2025 9:50 AM EST Bad odor of urine XR KNEE 1-2 VIEWS FLSTGWeielma16/17/2025 8:20 AM EST Acute pain of right knee IMMUNOFIXATION,SERUM ([facility])Alatjig2908/24/2025 2:21 PM EST PROTEIN ELECTROPHORESIS, FSVMVPwzqbri73/14/2025 2:21 PM EST ERYTHROPOETIN (EPO), EMRKLHbfylbk68/14/2025 2:21 PM EST FREE K+L LT CHAINS, QN, WEbumtzr77/14/2025 2:21 PM EST SED RATE BY MODIFIED TDITBFUBHKGipltzm07/14/2025 2:21 PM EST VIT. B12/FOLATE SAGUELTOogsgob22/14/2025 2:21 PM EST UPFPPYZELtecdqo80/14/2025 2:21 PM EST IRON AND TOTAL IRON BINDING NZKSECWTMsrxpcq00/14/2025 2:21 PM EST COMPREHENSIVE METABOLIC UCMAFHbbxjdu96/14/2025 2:21 PM EST RETICULOCYTE RIVCLUavihjt09/14/2025 2:21 PM EST CBC WITH AUTO IBHTEXQMACQAXderelc53/14/2025 2:21 PM EST MICROALBUMIN / CREATININE URINE ZAGWPLrphswj02/28/2025 2:32 PM EDT Type 2 diabetes mellitus with diabetic polyneuropathy, without long-term current use of insulin (HCC) LAB COLOGUARD?? COLON CANCER EZQCKWKtwifke90/05/2025 9:00 AM EDT Colon cancer screening POCT GLYCATED HEMOGLOBIN, JZLTOUlexbap30/28/2025 2:02 PM EDT Type 2 diabetes mellitus with diabetic polyneuropathy, without long-term current use of insulin (HCC) MM TOMOSYNTHESIS SCREENING BI04/30/2025 12:41 PM EDT from Last 3 Months or Most Recently Relevant to Health Maintenance Results * (ABNORMAL) URINARY TRACT INFECTION (HTRX) (09/20/2025 9:53 AM EST)Component ValueRef RangeTest MethodAnalysis TimePerformed AtPathologist Signature ACINETOBACTER BZQOAGUG351.961 - 24.689 ppm09/21/2025 6:53 AM ESTHealthTrackRx at LabPortACINETOBACTER BAUMANIINot Ygzhxwrh69.961 - 24.689 ppm09/21/2025 6:53 AM ESTHealthTrackRx at LabPortCITROBACTER IWPPJKJN026.000 - 32.015 ppm 09/21/2025 6:53 AM ESTHealthTrackRx at LabPortCITROBACTER FREUNDIINot Detected 23.000 - 32.015 ppm09/21/2025 6:53 AM ESTHealthTrackRx at LabPortENTEROBACTER AEROGENES, YTVPIVK595.000 - 32.290 ppm09/21/2025 6:53 AM ESTHealthTrackRx at LabPortENTEROBACTER AEROGENES, CLOACAENot Owoqppoz54.000 - 32.290 ppm 09/21/2025 6:53 AM ESTHealthTrackRx at LabPortENTEROCOCCUS FAECALIS, FAECIUM0 26.000 - 33.043 ppm09/21/2025 6:53 AM ESTHealthTrackRx at LabPortENTEROCOCCUS FAECALIS, FAECIUMNot Etobozvw27.000 - 33.043 ppm09/21/2025 6:53 AM EST [facility] at LabPortESCHERICHIA COLI19.829(A)23.000 - 28.500 ppm09/21/2025 6:53 AM ESTHealthTrackRx at LabPortESCHERICHIA COLIDetected(A)23.000 - 28.500 ppm09/21/2025 6:53 AM ESTHealthTrackRx at LabPortKLEBSIELLA PNEUMONIAE, EZQZREI203.000 - 31.865 ppm09/21/2025 6:53 AM ESTHealthTrackRx at LabPort KLEBSIELLA PNEUMONIAE, OXYTOCANot Erdgagcd03.000 - 31.865 ppm09/21/2025 6:53 AM ESTHealthTrackRx at LabPortMORGANELLA BIPMKXYB068.961 - 24.689 ppm 09/21/2025 6:53 AM ESTHealthTrackRx at LabPortMORGANELLA MORGANIINot Detected 19.961 - 24.689 ppm09/21/2025 6:53 AM ESTHealthTrackRx at LabPortPROTEUS MIRABILIS, XUNXLEJY525.000 - 28.500 ppm09/21/2025 6:53 AM ESTHealthTrackRx at LabPortPROTEUS MIRABILIS, VULGARISNot Aiyzeaiv45.000 - 28.500 ppm09/21/2025 6:53 AM ESTHealthTrackRx at LabPortPSEUDOMONAS MBYJKPDSNR928.000 - 31.801 ppm 09/21/2025 6:53 AM ESTHealthTrackRx at LabPortPSEUDOMONAS AERUGINOSANot Omikcfma16.000 - 31.801 ppm09/21/2025 6:53 AM ESTHealthTrackRx at [facility]Port STAPHYLOCOCCUS DJKZCQ122.000 - 31.595 ppm09/21/2025 6:53 AM ESTHealthTrackRx at LabPortSTAPHYLOCOCCUS AUREUSNot Mktivfxm86.000 - 31.595 ppm09/21/2025 6:53 AM ESTHealthTrackRx at LabPortSTREPTOCOCCUS AGALACTIAE (GROUP B STREP)026.000 - 32.435 ppm09/21/2025 6:53 AM ESTHealthTrackRx at LabPortSTREPTOCOCCUS AGALACTIAE (GROUP B STREP)Not Cczpqngk32.000 - 32.435 ppm09/21/2025 6:53 AM ESTHealthTrackRx at LabPortCANDIDA ALBICANS, PARAPSILOSIS, HLOLSBMVXP067.000 - 30.347 ppm09/21/2025 6:53 AM ESTHealthTrackRx at LabPortCANDIDA ALBICANS, PARAPSILOSIS, TROPICALISNot Ljxrkxfq01.000 - 30.347 ppm09/21/2025 6:53 AM EST [facility] at LabPortCANDIDA ZGVNERIL836.000 - 31.618 ppm09/21/2025 6:53 AM ESTHealthTrackRx at LabPortCANDIDA GLABRATANot Ctqitnes95.000 - 31.618 ppm 09/21/2025 6:53 AM ESTHealthTrackRx at LabPortCANDIDA FGVIKO584.000 - 30.873 ppm09/21/2025 6:53 AM ESTHealthTrackRx at LabPortCANDIDA KRUSEINot Detected 23.000 - 30.873 ppm09/21/2025 6:53 AM ESTHealthTrackRx at LabPortSERRATIA ACABPRPJZY767.000 - 31.581 ppm09/21/2025 6:53 AM ESTHealthTrackRx at LabPort SERRATIA MARCESCENSNot Thehuxri67.000 - 31.581 ppm09/21/2025 6:53 AM EST [facility] at LabPortSTREPTOCOCCUS PYOGENES (GROUP A STREP)019.961 - 24.689 ppm09/21/2025 6:53 AM ESTHealthTrackRx at LabPortSTREPTOCOCCUS PYOGENES (GROUP A STREP)Not Xuakoqnt28.961 - 24.689 ppm09/21/2025 6:53 AM ESTHealthTrackRx at LabPortSTAPHYLOCOCCUS EPIDERMIDIS, HAEMOLYTICUS, LUGDUNENSIS, SAPROPHYTICUS (BONPT264.961 - 24.689 ppm09/21/2025 6:53 AM ESTHealth[facility]Rx at [facility] STAPHYLOCOCCUS EPIDERMIDIS, HAEMOLYTICUS, LUGDUNENSIS, SAPROPHYTICUS (URINANot Nmezhaif89.961 - 24.689 ppm09/21/2025 6:53 AM ESTHealth[facility]Rx [facility] STAPHYLOCOCCUS EPIDERMIDIS, HAEMOLYTICUS, LUGDUNENSIS, SAPROPHYTICUS (URINA0 19.961 - 24.689 ppm09/21/2025 6:53 AM ESTHealth[facility]Rx [facility] STAPHYLOCOCCUS EPIDERMIDIS, HAEMOLYTICUS, LUGDUNENSIS, SAPROPHYTICUS (URINANot Atilebcf49.961 - 24.689 ppm09/21/2025 6:53 AM ESTHealthTrackRx at LabPort Specimen (Source)Anatomical Location / LateralityCollection Method / Volume Collection TimeReceived EgleCsotg03/11/2025 9:53 AM EST09/21/2025 2:09 AM EST Narrative Authorizing ProviderResult TypeResult StatusNany Worley MDLAB BLOOD ORDERABLES Final ResultPerforming OrganizationAddressCity/State/ZIP CodePhone Number [facility] [address] [address] * (ABNORMAL) POCT Urinalysis dipstick (09/20/2025 9:50 [...] / LateralityCollection Method / VolumeCollection Time Received UzkbIfgnk07/11/2025 9:50 AM EST Narrative Authorizing ProviderResult TypeResult StatusNany Worley MDPOINT OF CARE TEST ENTER/EDIT ORDERABLESFinal Result * XR knee 1 or 2 views right (08/27/2025 8:20 AM EST)Anatomical RegionLaterality ModalityLower Extremities, KneeRightRadiographic ImagingSpecimen (Source) Anatomical Location / LateralityCollection Method / VolumeCollection Time Received Time Narrative 08/27/2025 8:25 AM EST Imaging Result: 08/27/2025: Standing AP and LAT of right knee showed surgical position and alignment of prosthetic components without evidence of loosening or wear to the ??femoral, tibial, or patellar components. ??The alignment appeared to be anatomic. ??There was no evidence of accelerated or asymmetric wear to the patellar button or tibial tray. ??There was no evidence of fracture and/or dislocation. Impression: Stable RT total knee replacement. 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 Results cannot be interpreted as absolute evidence of the presence or absence of malignant disease. Performed at: ??[facility] ??[id number] Installation Coordinator: Pee Moreno PhD, Phone: ??[phone] Specimen (Source)Anatomical Location / LateralityCollection Method / Volume Collection TimeReceived TimeOtherTopography unknown / Veygwzu7508/24/2025 2:21 PM EST08/24/2025 2:21 PM EST Narrative Authorizing ProviderResult TypeResult StatusKenny Rivero [facility] BLOOD ORDERABLESFinal ResultPerforming OrganizationAddressCity/State/[facility] CodePhone Number [address] * FREE K+L LT CHAINS, QN, S (08/24/2025 2:21 PM EST)ComponentValueRef RangeTest MethodAnalysis TimePerformed AtPathologist SignatureFREE KAPPA LIGHT CHAINS, S 22.53.3 - 19.4 mg/L110/27/2024 4:08 PM ESTFIRELANDSFREE LAMBDA LIGHT CHAINS, S 15.95.7 - 26.3 mg/L110/27/2024 4:08 PM ESTFIRELANDSKAPPA/LAMBDA RATIO, S1.42 0.26 - 1.6508/27/2025 4:08 PM ESTFIRELANDSComment: Performed at: ??[facility] ??[id number] Installation Coordinator: Pee Moreno PhD, Phone: ??[phone] Specimen (Source)Anatomical Location / LateralityCollection Method / Volume Collection TimeReceived TimeOtherTopography unknown / Mmwrbih8208/24/2025 2:21 PM EST08/24/2025 2:21 PM EST Narrative Authorizing ProviderResult TypeResult StatusLeandrodominic Rivero [facility] BLOOD ORDERABLESFinal ResultPerforming OrganizationAddressty/[facility]/ZIP CodePhone Number [address] [place] [address], [place] * IMMUNOFIXATION,SERUM ([facility]) (08/24/2025 2:21 PM EST)ComponentValueRef Range Test MethodAnalysis TimePerformed AtPathologist SignatureIMMUNOFIXATION, SERUM Comment.08/28/2025 4:09 PM ESTFIRELANDSComment:No monoclonality detected. IMMUNOGLOBULIN G1,537719 - 1,602 mg/dL08/28/2025 4:09 PM ESTFIRELANDS IMMUNOGLOBULIN A, UAWRD21010 - 352 mg/dL08/28/2025 4:09 PM ESTFIRELANDS IMMUNOGLOBULIN M, KFCWE1646 - 217 mg/dL08/28/2025 4:09 PM ESTFIRELANDSComment: Performed at: ?? - [facility] [address] ??[id number] Installation Coordinator: Pee Moreno PhD, Phone: ??[phone] Specimen (Source)Anatomical Location / LateralityCollection Method / Volume Collection TimeReceived TimeOtherTopography unknown / Kkrbrdx4908/24/2025 2:21 PM EST08/24/2025 2:21 PM EST Narrative Authorizing ProviderResult TypeResult StatusKenny Caren Rivero [facility] BLOOD ORDERABLESFinal ResultPerforming OrganizationAddressty/State/ZIP CodePhone Number [address] [place] [address], * (ABNORMAL) VIT. B12/FOLATE PROFILE (08/24/2025 2:21 PM EST)ComponentValueRef RangeTest MethodAnalysis TimePerformed AtPathologist SignatureVITAMIN H65132 (L)180 - 914 pg/mL08/24/2025 4:23 PM [facility] CtrFOLATE 15.6>5.9 ng/mL08/24/2025 4:21 PM [facility] CtrComment: Folate reference range: >5.9 ng/ml The WHO technical consultation on folate and vitamin b12 deficiencies has determined that folate concentrations less than 4 ng/ml are considered deficient. Specimen (Source)Anatomical Location / LateralityCollection Method / Volume Collection TimeReceived TimeOtherTopography unknown / Nhvmcjs9308/24/2025 2:21 PM EST08/24/2025 2:21 PM EST Narrative Authorizing ProviderResult TypeResult StatusKenny Rivero [facility] BLOOD ORDERABLESFinal ResultPerforming OrganizationAddressCity/State/ZIP CodePhone Number [facility] [address] [place] [address], [facility] [address] [place] [address] * (ABNORMAL) CBC auto differential (08/24/2025 2:21 PM EST)ComponentValueRef RangeTest MethodAnalysis TimePerformed AtPathologist SignatureWBC5.33.8 - 11.6 [CFU]/mL08/24/2025 3:42 PM [facility] CtrUNCORRECTED WHITE BLOOD COUNT5.33.8 - 11.6 10*3/uL08/24/2025 3:42 PM [facility] CtrRBC3.36(L)3.60 - 5.00 10*6/uL08/24/2025 3:42 PM [facility] CtrHEMOGLOBIN8.4(L)11.8 - 15.4 g/dL08/24/2025 3:42 PM [facility] AvnMJGYYIQAZN09.5(L)34.0 - 46.4 %08/24/2025 3:42 PM [facility] ShsMMV72.7(L)80 - 100 fL08/24/2025 3:42 PM [facility] GlePAM91.124.7 - 34.3 pg08/24/2025 3:42 PM [facility] DebVEII58.9(L)32.0 - 35.0 g/dL08/24/2025 3:42 PM [facility] CtrRED CELL DISTRIBUTION WIDTH, RDW17.5(H)11.9 - 15.3 %08/24/2025 3:42 PM [facility] CtrPLATELET XNLCT798 150 - 450 10*3/uL08/24/2025 3:42 PM [facility] CtrMEAN PLATELET VOLUME, MPV7.36.3 - 10.7 fL08/24/2025 3:42 PM [facility] CtrNEUTROPHILS, %62.3. %08/24/2025 3:42 PM [facility] CtrLYMPHOCYTES, %29.4. %08/24/2025 3:42 PM [facility] CtrMONOCYTE/MACROPHAGE, %7.3. %08/24/2025 3:42 PM [facility] CtrEOSINOPHILS, %0.5. %08/24/2025 3:42 PM [facility] CtrBASOPHILS, %0.5. %08/24/2025 3:42 PM [facility] CtrNRBC0.10 - 0.5 /100{WBC}08/24/2025 3:42 PM [facility] CtrNEUTROPHILS3.31.8 - 7.7 10*3/uL08/24/2025 3:42 PM [facility] CtrLYMPHOCYTES1.61.00 - 4.8 10*3/uL08/24/2025 3:42 PM [facility] CtrMONOCYTES0.40.0 - 0.8 10*3/uL08/24/2025 3:42 PM [facility] CtrEOSINOPHILS0.00.0 - 0.45 10*3/uL08/24/2025 3:42 PM [facility] CtrBASOPHILS0.00.0 - 0.2 10*3/uL 08/24/2025 3:42 PM [facility] CtrSpecimen (Source) Anatomical Location / LateralityCollection Method / VolumeCollection Time Received TimeBlood (Blood)08/24/2025 2:21 PM EST08/24/2025 2:21 PM EST Narrative Authorizing ProviderResult TypeResult StatusKenny Rivero DOLAB BLOOD ORDERABLESFinal ResultPerforming OrganizationAddressCity/State/ZIP CodePhone Number [facility] [address] [place] [address], [facility] [address] [place] [address] * (ABNORMAL) Iron and TIBC (08/24/2025 2:21 PM EST)ComponentValueRef RangeTest MethodAnalysis TimePerformed AtPathologist LbimrfhjmXJIK18(L)50 - 212 ug/dL 08/24/2025 3:57 PM [facility] CtrTOTAL IRON BINDING SHKIBSBO672681 - 450 ug/dL08/24/2025 3:57 PM [facility]tr % IRON SATURATION8.7(L)20 - 50 %08/24/2025 3:57 PM [facility] ZtxFLBBHQXKXVN496434 - 362 mg/dL08/24/2025 3:57 PM [facility] CtrSpecimen (Source)Anatomical Location / Laterality Collection Method / VolumeCollection TimeReceived TimeOtherTopography unknown / Ltyjzvr5108/24/2025 2:21 PM EST08/24/2025 2:21 PM EST Narrative Authorizing ProviderResult TypeResult StatusKenny Rivero [facility] BLOOD ORDERABLESFinal ResultPerforming OrganizationAddressCity/State/ZIP CodePhone Number [address] [address], [facility] [address] [place] [address] * (ABNORMAL) Sedimentation rate, automated (08/24/2025 2:21 PM EST)Component ValueRef RangeTest MethodAnalysis TimePerformed AtPathologist Signature ERYTHROCYTE SEDIMENTATION RATE45(H)0 - 29110/24/2024 5:03 PM [facility] CtrSpecimen (Source)Anatomical Location / Laterality Collection Method / VolumeCollection TimeReceived TimeBlood (Blood)08/24/2025 2:21 PM EST08/24/2025 2:21 PM EST Narrative Authorizing ProviderResult TypeResult StatusKenny Rivero DOL BLOOD ORDERABLESFinal ResultPerforming OrganizationAddressCity/State/ZIP CodePhone Number [facility] [address] [place] [address], [facility] [address] [place] [address] * (ABNORMAL) Reticulocytes (08/24/2025 2:21 PM EST)ComponentValueRef RangeTest MethodAnalysis TimePerformed AtPathologist SignatureRETICULOCYTE PERCENT2.0(H) 0.5 - 1.5 %08/24/2025 3:42 PM [facility] CtrRETICULOCYTE NUMBER0.0660.024 - 0.084 10*6/uL08/24/2025 3:42 PM [facility] CtrSpecimen (Source)Anatomical Location / LateralityCollection Method / VolumeCollection TimeReceived TimeBlood (Blood)08/24/2025 2:21 PM EST 08/24/2025 2:21 PM EST Narrative Authorizing ProviderResult TypeResult StatusKenny Rivero DOLAB BLOOD ORDERABLESFinal ResultPerforming OrganizationAddressCity/State/ZIP CodePhone Number [facility] [address] [place] [address], [facility] [address] [place] [address] * Protein electrophoresis, serum (08/24/2025 2:21 PM EST)ComponentValueRef Range Test MethodAnalysis TimePerformed AtPathologist SignatureTOTAL PROTEIN, SERUM 6.66.0 - 8.5 g/dL08/27/2025 4:36 PM ESTFIRELANDSALBUMIN, SERUM3.62.9 - 4.4 g/dL08/27/2025 4:36 PM OQYDODVVFFYEHMIYL-5-KFZRJHCJ1.30.0 - 0.4 g/dL08/27/2025 4:36 PM YAEDCBGDTPGYDLJAP-6-PUEVYUNH8.60.4 - 1.0 g/dL08/27/2025 4:36 PM EST [place] GLOBULIN0.90.7 - 1.3 g/dL08/27/2025 4:36 PM ESTFIRELANDSGAMMA GLOBULIN1.20.4 - 1.8 g/dL08/27/2025 4:36 PM ESTFIRELANDSM-SPIKENot ObservedNot Observed g/dL08/27/2025 4:36 PM ESTFIRELANDSGLOBULIN, TOTAL3.02.2 - 3.9 g/dL 08/27/2025 4:36 PM ESTFIRELANDSA/G RATIO1.20.7 - 1.7110/27/2024 4:36 PM EST FIRELANDSSPE-NOTEComment.08/27/2025 4:36 PM ESTFIRELANDSComment: Protein electrophoresis scan will follow via computer, mail, or supervisor inspection department delivery. Specimen (Source)Anatomical Location / LateralityCollection Method / Volume Collection TimeReceived TimeOtherTopography unknown / Seitqhi1708/24/2025 2:21 PM EST08/24/2025 2:21 PM EST Narrative Authorizing ProviderResult TypeResult StatusLeandrodominic Rivero [facility] BLOOD ORDERABLESFinal ResultPerforming OrganizationAddressty/State/ZIP CodePhone Number [place] [phone], * (ABNORMAL) Ferritin (08/24/2025 2:21 PM EST)ComponentValueRef RangeTest Method Analysis TimePerformed AtPathologist SignatureFERRITIN7.0(L)11.0 - 306.8 ng/mL 08/24/2025 4:17 PM [facility] CtrSpecimen (Source) Anatomical Location / LateralityCollection Method / VolumeCollection Time Received TimeOtherTopography unknown / Enetald9708/24/2025 2:21 PM EST08/24/2025 2:21 PM EST Narrative Authorizing ProviderResult TypeResult StatusLeandrodominic Rivero [facility] BLOOD ORDERABLESFinal ResultPerforming OrganizationAddressNor[facility]/State/[place] [address], [facility] [address] [place] [phone] * (ABNORMAL) Comprehensive metabolic panel (08/24/2025 2:21 PM EST)Component ValueRef RangeTest MethodAnalysis TimePerformed AtPathologist SignatureGlucose 8670 - 100 mg/dL08/24/2025 3:57 PM [facility] CtrComment: Random Glucose Reference Range is dependent on time and content of last meal. Glucose of more than 200 mg/dL in a nonstressed, ambulatory subject supports the diagnosis of Diabetes Mellitus. ADA recommended reference range YPU094 - 25 mg/dL08/24/2025 3:57 PM [facility] CtrCREATININE 0.55(L)0.60 - 1.20 mg/dL08/24/2025 3:57 PM [facility]tr ESTIMATED GFR>60. 3:57 PM [facility] XmpVwxbdz021 136 - 145 mmol/L110/24/2024 3:57 PM [facility] CtrPotassium, Bld4.03.5 - 5.1 mmol/L110/24/2024 3:57 PM [facility]tr Nxifqbqh49828 - 107 mmol/L110/24/2024 3:57 PM [facility] Carbon Wwibqcw35.1(H)21.0 - 31.0 mmol/L110/24/2024 3:57 PM [facility] CtrAnion Gap7.96.0 - 15.011 3:57 PM [facility] CtrCalcium8.88.6 - 10.3 mg/dL08/24/2025 3:57 PM [facility] CtrTOTAL PROTEIN6.56.4 - 8.9 g/dL08/24/2025 3:57 PM [facility] CtrALBUMIN LEVEL4.13.5 - 5.7 g/dL08/24/2025 3:57 PM [facility] CtrGLOBULIN2.4g/dL08/24/2025 3:57 PM [facility] CtrALBUMIN/GLOBULIN RATIO1.7110/24/2024 3:57 PM [facility] CtrBILIRUBIN,TOTAL0.30.3 - 1.0 mg/dL08/24/2025 3:57 PM [facility] CtrASPARTATE AMINO XPHAXGQXYWI31(L)13 - 39 U/L 08/24/2025 3:57 PM [facility] CtrALANINE FDDMBYILJTNYDYEY164 - 52 U/L110/24/2024 3:57 PM [facility] CtrALKALINE PHOSPHATASE 6534 - 104 U/L110/24/2024 3:57 PM [facility] CtrCREATININE CLR CALC GAUJUALO346.51110/24/2024 3:57 PM [facility] CtrSpecimen (Source)Anatomical Location / LateralityCollection Method / VolumeCollection TimeReceived TimeOtherTopography unknown / Cojuvea6408/24/2025 2:21 PM EST 08/24/2025 2:21 PM EST Narrative Authorizing ProviderResult TypeResult StatusTimothy J Adamowicz DOL BLOOD ORDERABLESFinal ResultPerforming OrganizationAddressCity/State/ZIP CodePhone Number [facility] [address] [place] [address], [facility] [address] [place] [address] * Microalbumin / creatinine, urine ratio (08/07/2025 2:32 PM EDT)ComponentValue Ref RangeTest MethodAnalysis TimePerformed AtPathologist SignatureCREATININE, RANDOM IFQBI05322 - 275 mg/dLQUESTALBUMIN, URINE0.7See Note: mg/dLQUEST Comment: Reference Range: Reference Range Not established ALBUMIN/CREATININE RATIO, RANDOM URINE4<30 mg/g creatQUESTComment: The ADA defines abnormalities in albumin excretion as follows: Albuminuria Category ?Result (mg/g creatinine) Normal to Mildly increased <30 Moderately increased ? 30-299 Severely increased > OR = 300 The ADA recommends that at least two of three specimens collected within a 3-6 month period be abnormal before considering a patient to be within a diagnostic category. Specimen (Source)Anatomical Location / LateralityCollection Method / Volume Collection TimeReceived TimeUrineUrine specimen obtained by clean catch procedure / Twxdkhw0108/07/2025 2:32 PM EDT1 2:32 PM EDT Narrative Resulting Agency Comment Performing Organization Information ?Site ID: [id number] ?Name: [facility] ?Address: [address] [place] [id number] ?Director: Kentrell Mcqueen MD Authorizing ProviderResult TypeResult StatusKrystal Lamb PAL URINE ORDERABLESFinal ResultPerforming OrganizationAddressCity/State/ZIP CodePhone Number [facility] * Cologuard?? colon cancer screening (06/15/2025 9:00 AM EDT)ComponentValueRef RangeTest MethodAnalysis TimePerformed AtPathologist SignatureNONINV COLON CA DNA+OCC BLD SCRN STL-QDDHhfkeokvSxwghksw01/11/2025 5:37 AM EDTEXYatra (CLIA #:[id number])Comment: The Cologuard (TM) test was performed on [...] (Dc Baldwin al, N Engl J Med 2014;370(14):3207-0633) The normal value (reference range) for this assay is negative. COLOGUARD RE-SCREENING RECOMMENDATION: Periodic colorectal cancer screening is an important part ofpreventive healthcare for asymptomatic individuals at average risk for colorectal cancer. Followinga negative Cologuard result, the [place] Cancer Society and U.S. Multi-Society Task Force screening guidelines recommend a Cologuard re-screening interval of 3 years. References: [place] [employer] Guideline for Colorectal Cancer Screening: https://www.cancer.or g/cancer/ovsfo-wnicpy-mjvovd/piothupci-aaawexcli-dgsoihz/acs-recommendations.htm jonel; Bryant STARKS, Gokul STEWART, Aicha FabianK, Colorectal Cancer Screening: Recommendations for Physicians and Patients from the U.S. Multi-Society Task Force on Colorectal Cancer Screening , Am J Gastroenterology 2017; 112:1169-8753. TEST DESCRIPTION: Composite algorithmic analysis of stool DNA-biomarkers with hemoglobin immunoassay. ?? Quantitative values of individual biomarkers are not reportable and are not associated with individual biomarker result reference ranges. Cologuard is intended for colorectal cancer screening ofadults of either sex, 45 years or older, [...] screened with both Cologuard and colonoscopy. (Dc Drake et al, N Engl J Med 2014;370(14):7544-4775.) Cologuard may produce a false negative or false positive result (no colorectal cancer or precancerous polyp present at colonoscopy follow up). A negative Cologuard test result does not guarantee the absence of CRC or advanced adenoma (pre-cancer). The current Cologuard screening interval is every 3 years. ([employer] Cancer Society and U.S. Multi-Society Task Force). Cologuard performance data in a 10,000 patient pivotal study using colonoscopy as the reference method can be accessed at the following location: www.[employer].ClassOwl/results. Additional description of the Cologuard test process, warnings and precautions can be found at www.cologuard.com. Specimen (Source)Anatomical Location / LateralityCollection Method / Volume Collection TimeReceived TimeStool specimen (specimen)06/15/2025 9:00 AM EDT 06/16/2025 4:51 PM EDT Narrative Authorizing ProviderResult TypeResult StatusAmarjit Urias DOLAB MOLECULAR DIAGNOSTICS ORDERABLESFinal ResultPerforming OrganizationAddressCity/State/ZIP CodePhone Number .[employer] (CLIA #:[id number]) [address] [address], [place] (CLIA #:[id number]) [address] [address] * POCT Glycated hemoglobin, total (05/07/2025 2:02 PM EDT)ComponentValueRef RangeTest MethodAnalysis TimePerformed AtPathologist SignatureHemoglobin A1C 5.7Specimen (Source)Anatomical Location / LateralityCollection Method / Volume Collection TimeReceived RrbvZftju70/28/2025 2:02 PM EDT Narrative Authorizing ProviderResult TypeResult StatusKrystal Lamb PAPOINT OF CARE TEST ENTER/EDIT ORDERABLESFinal Result * MM TOMOSYNTHESIS SCREENING BI (04/30/2025 12:41 PM EDT)Anatomical Region LateralityModalityOtherSpecimen (Source)Anatomical Location / Laterality Collection Method / VolumeCollection TimeReceived Time04/30/2025 12:41 PM EDT Narrative 04/30/2025 12:42 PM EDT [facility] ?[address] ? [place] [address] ? Mammography Report ? Signed ? Patient: CARMEN ELISE ? MR#: [id number] ?? : 1970 ?Acct:[id number] ?? Age/Sex: 55 / F ?ADM Date: 04/30/25 ?? Loc: MAMMO ? Attending Dr: AMARJIT URIAS ? Ordering Physician: AMARJIT URIAS ? Results: ? Date of Service: 04/30/25 ?Follow Up: ? Procedure(s): MM tomosynthesis screening BI ?? Accession Number(s): [id number] ? cc: NANY WORLEY ; AMARJIT URIAS ? Patient Name: ? CARMEN DOWNING ? MR#: [id number] ? : 1970 ? Exam Date: 04/30/2025 ?? Ordering Doctor: DR AMARJIT URIAS ? RADIOLOGY REPORT ? PROCEDURE: ? MM TOMOSYNTHESIS SCREENING BI ? COMPARISON: ? MG MAMM SCREEN VAISHNAVI W CAD, 10/21/2018. ??MG MAMM VAISHNAVI SCRN W CAD ?? DIG, 02/28/2016. ??MG MAMM VAISHNAVI SCRN W CAD DIG, 08/08/2014. ? INDICATIONS: ? Screening ? Calculator Name ? NCI Breast Cancer Risk Assessment Tool ?? 5 Year Breast Cancer Risk ? 0.80% ?? Lifetime Breast Cancer Risk ? 6.10% ?? Personal Breast Cancer ?No ?? Personal Ovarian Cancer ? No ?? Treatments ? None ?? Family Cancers ? Aunt-paternal with breast cancer at age 62; ?? Grandmother-paternal with colon cancer at age 63; Grandfather-paternal with ?? colon cancer at age 68. ? LOCATION: ? [facility] ? BREAST COMPOSITION: ? The breasts are heterogeneously dense, which may ?? obscure small masses. ? FINDINGS: ? RIGHT BREAST: ??No significant suspicious finding. ? LEFT BREAST: ??No significant suspicious finding. ? DIAGNOSTIC CATEGORY 1--NEGATIVE. ? RECOMMENDATIONS: ? ROUTINE MAMMOGRAM AND CLINICAL EVALUATION IN 12 MONTHS. ? PLEASE NOTE: ??A NORMAL MAMMOGRAM DOES NOT EXCLUDE THE POSSIBILITY OF BREAST ?? CANCER. ??A CLINICALLY SUSPICIOUS PALPABLE LUMP SHOULD BE BIOPSIED. ? Dictated by: Douglas Bartlett MD on 04/30/2025 at 12:39 ? Approved by: Douglas Bartlett MD on 04/30/2025 at 12:41 ? Dictated By: ?Douglas Bartlett M.D. ? Signed By: ?04/30/25 1242 ? DD/ 1241 ? TD/TT: ? Assistant Professor Of Geography: Procedure Note Radiology, Radiologist, MD - 04/30/2025 [place] [address] Mammography Report Signed Patient: CARMEN ELISE RMR#: [id number] : 1970Acct:[id number] Age/Sex: 55 / FADM Date: 04/30/25 Loc: MAMMO Attending Dr: AMARJIT URIAS Ordering Physician: Halina URIASults: Date of Service: 04/30/25Follow Up: Procedure(s): MM tomosynthesis screening BI Accession Number(s): [id number] cc: NANY WORLEY ; AMARJIT URIAS Patient Name: CARMEN ELISE MR#: [id number] : 1970 Exam Date: 04/30/2025 Ordering Doctor: [...] colon cancer at age 69. LOCATION: [facility] BREAST COMPOSITION: The breasts are [...] M.D. Signed By:04/30/25 1242 DD/ 1241 TD/TT: Assistant Professor Of Geography: Authorizing ProviderResult TypeResult StatusGeneric External Data Provider CL[facility]IS[facility]NC IMAGINGFinal Result from Last 3 Months or Most Recently Relevant to Health Maintenance Additional Health Concerns Active ProblemsNoted DateDiagnosed DatePatient on antidepressant monitoring plan 5Baseline PHQ-9011/14/2024 Insurance Care Teams Team MemberRelationshipSpecialtyStart DateEnd Date Nany Worley MD [address] [facility] [address] [place] [address] PCP - GeneralFamily Medicine03/10/23
--- OUTSIDE RECORDS SUMMARY | 2025-10-02 08:12 | XMS_ITS | Encounter Summary ---
Author Organization [facility] Address [address] [place] [address] Care Team Providers Care Product Tester Fiberglass Name Role Phone Nany Obrien MD Primary Care Provider [phone] Reason for Visit * ReasonCommentsMed Refill Encounter Details DateTypeDepartmentCare Team (Latest Contact Info)Kkeyjvncwjw84/06/2025Refill [facility] [address] [place] [id number] Krystal Lamb, PA [address] [place] [address] Fibromyalgia Social History Tobacco UseTypesPacks/DayYears UsedDateSmoking Tobacco: FormerCigarettes1.531.7 [...] a week03/06/2025 How often do you attend zoroastrianism or religion services?More than 4 times per year 03/06/2025Do you belong to any clubs or organizations such as zoroastrianism groups, unions, fraternal or athletic groups, or school groups?Yes03/06/2025ttends Club or Organization MeetingsNot on file03/06/2025re you , , , , never , or living with a partner?Ykomlba5903/06/2025UDIT-C AnswerDate RecordedQ1: How often do you have [...] care, and heating?Hard03/06/2025PHQ-2Answer Date RecordedPatient Health Questionnaire-2 Icods25210/20/2024[facility] [place] of Occupational Health - Occupational Stress QuestionnaireAnswerDate RecordedDo you feel stress - tense, restless, nervous, or anxious, or unable to sleep at night because yourmind is troubled all the time - these days?Only a jdjolk0803/06/2025 Exercise Vital SignAnswerDate RecordedOn average, how many [...] steady place to sleep or slept in [facility] (including now)?No11/16/2023Housing Stability Vital SignAnswerDate RecordedIn the last 12 months, was there a time when you were not able to pay the mortgage or rent on time?No03/06/2025Number of Times Moved in the Last Year Not on file03/06/2025t any time in the past 12 months, were you homeless or living in a [facility] (including now)?No03/06/2025CommentsNoSex and Gender InformationValueDate RecordedSex Assigned at FymwsXqnbqu60/12/2025 8:22 AM EST Legal BkxTkslxn07/15/2023 7:21 PM EDTGender PjokreqwXodxph48/12/2025 8:22 AM EST Sexual OrientationNot on filedocumented as of this encounter Plan of Treatment DateTypeDepartmentCare Team (Latest Contact Info)Oamqaxtfbqs01/12/2026 9:30 AM ESTOffice Visit [facility] [place] [address] Vamsi Garza, RADAR TECHNICIAN [address] [address] 03/01/2026 10:15 AM EDTOffice Visit [facility] [address] [facility] [address] [facility] [place] [address] Amarjit Whitlock, DO [address] [facility] [address] [place] [address] documented as of this encounter Goals GoalPatient [...] MemberRelationshipSpecialtyStart DateEnd Date Nany Obrien MD [address] [facility] [address] [place] [address] PCP - GeneralFamily Medicine03/10/23documented as of this encounter
--- OUTSIDE RECORDS SUMMARY | 2025-10-02 08:12 | XMS_ITS | Encounter Summary ---
Author Organization [facility] Address [address] [place] [address] Care Team Providers Care Outside Barrel Lathe Operator Name Role Phone Nany Obrien MD Primary Care Provider [phone] Encounter Details DateTypeDepartmentCare Team (Latest Contact Info)Glitkawurgt01/11/2025Telephone [facility] [address] [place] [phone] Nany Obrien MD [address] [place], [place] [phone] Social History Tobacco UseTypesPacks/DayYears UsedDateSmoking Tobacco: FormerCigarettes1.531.7 [...] a week03/06/2025 How often do you attend presybeterian or presybeterian services?More than 4 times per year 03/06/2025Do you belong to any clubs or organizations such as presybeterian groups, unions, fraternal or athletic groups, or school groups?Yes03/06/2025ttends Club or Organization MeetingsNot on file03/06/2025re you , , , , never , or living with a partner?Avwtisu5603/06/2025UDIT-C AnswerDate RecordedQ1: How often do you have [...] care, and heating?Hard03/06/2025PHQ-2Answer Date RecordedPatient Health Questionnaire-2 Kmzxm67110/20/2024[facility] [place] of Occupational Health - Occupational Stress QuestionnaireAnswerDate RecordedDo you feel stress - tense, restless, nervous, or anxious, or unable to sleep at night because yourmind is troubled all the time - these days?Only a zlrspi1503/06/2025 Exercise Vital SignAnswerDate RecordedOn average, how many [...] steady place to sleep or slept in [facility] (including now)?No11/16/2023Housing Stability Vital SignAnswerDate RecordedIn the last 12 months, was there a time when you were not able to pay the mortgage or rent on time?No03/06/2025Number of Times Moved in the Last Year Not on file03/06/2025t any time in the past 12 months, were you homeless or living in a group home (including now)?No03/06/2025CommentsNoSex and Gender InformationValueDate RecordedSex Assigned at VzffsZoguct07/12/2025 8:22 AM EST Legal TihEpjxcu43/15/2023 7:21 PM EDTGender AhsyqayiQnwazo03/12/2025 8:22 AM EST Sexual OrientationNot on filedocumented as of this encounter Miscellaneous Notes * Telephone Encounter - Mary Lou Galloway - 09/20/2025 3:39 PM EST Carmen called checking on results of her urine check. * Telephone Encounter - Carla Narayan LPN - 09/20/2025 9:55 AM EST Pt stopped in today for possible UTI. Please see results in nurse visit. I also did sent it out forculture. documented in this encounter Plan of Treatment DateTypeDepartmentCare Team (Latest Contact Info)Liaeaonphhr38/12/2026 9:30 AM ESTOffice Visit [facility] [address] [place] [address] Vamsi Garza, DIRECTOR OF COUNSELING [address] [place], [place] [address] 03/01/2026 10:15 AM EDTOffice Visit [facility] [address] [facility] [address] Amarjit Whitlock, DO [address] [facility] [address] [place] [address] documented as of this encounter Goals GoalPatient Goal TypeAssociated ProblemsRecent ProgressPatient-Stated?Author Help patient manage antidepressant medication Care PlanPatient on antidepressant monitoring Nany Shaver MD Baseline PHQ-9 Care PlanBaseline PHQ-9Nany Mcclain MDdocumented as of this encounter Visit Diagnoses Diagnosis Acute cystitis without hematuria- Primary documented in this encounter Additional Health Concerns Active ProblemsNoted DateDiagnosed DatePatient on antidepressant monitoring plan 5Baseline PHQ-9011/14/2024documented as of this encounter Care Teams Team MemberRelationshipSpecialtyStart DateEnd Date Nany Obrien MD [address] [place] [address] PCP - GeneralFamily Medicine03/10/23documented as of this encounter
--- OUTSIDE RECORDS SUMMARY | 2025-10-02 08:12 | XMS_ITS | Clinical Summary ---
Author Organization [employer] Address [id number] [address] [place] [address] Care Team Providers Care Aluminizer Name Role Phone Nany Obrien MD Primary Care Provider [phone] Allergies Active AllergyReactionsCriticalityNoted ChalAvfpquhsTnmitshrxnwru94/08/2021 Severe headache, rash Medications MedicationSigDispense QuantityRefillsLast FilledStart DateEnd DateStatus pregabalin (LYRICA) 200 mg capsule Take 1 capsule (200 mg total) by mouth 3 (three) times a day.Active DULoxetine (CYMBALTA) 60 mg capsule Take 1 capsule (60 mg total) by mouth respiratory nightly.Active clonazePAM (KlonoPIN) 1 mg tablet Take 1 tablet (1 mg total) by mouth nightly as needed for seizures.Active traZODone (DESYREL) 50 mg tablet Take 1 tablet (50 mg total) by mouth nightly.Active amitriptyline (ELAVIL) 25 mg tablet Take 1 tablet (25 mg total) by mouth nightly.Active tiZANidine (ZANAFLEX) 4 mg tablet Take 1 tablet (4 mg total) by mouth every 6 (six) hours as needed for muscle spasms.Active estradioL (ESTRACE) 0.5 mg tablet Take 1 tablet (0.5 mg total) by mouth in the morning.Active furosemide (LASIX) 20 mg tablet Take 2 tablets (40 mg total) by mouth nightly.Active spironolactone (ALDACTONE) 25 mg tablet Take 1 tablet (25 mg total) by mouth in the morning.Active NON FORMULARY Pain pump for spine- Morphine, Baclofen, Clonidine combinationActive omeprazole (PriLOSEC) 40 mg capsule Take 1 capsule (40 mg total) by mouth in the morning.Active Active Problems ProblemNoted DateDiagnosed DatePrimary localized osteoarthritis of right knee 12/01/2023 Family History Medical HistoryRelationNameCommentsClotting disorderFatherEpilepsyFatherHeart diseaseMotherThyroid diseaseMotherRelationNameStatusCommentsFatherAliveMother Alive Social History Tobacco UseTypesPacks/DayYears UsedDateSmoking Tobacco: GcogmtGkbrhtprqk2Anhc: 2015Smokeless Tobacco: NeverAlcohol UseStandard Drinks/WeekCommentsNever0 (1 standard drink = 0.6 oz pure alcohol)[facility] UtilitiesAnswerDate RecordedIn the past 12 months has the [employer], gas, oil, or water Goodd[employer] threatened to shut off services in your home?No4AUDIT-CAnswerDate RecordedFrequency of Alcohol DjqiqkjtujvClxvx90/26/2019Average Number of DrinksNot on file10/05/2019Frequency of Binge DrinkingNot on file10/05/2019PRAPARE - TransportationAnswerDate RecordedIn the past 12 months, has lack of transportation kept you from medical appointments or from getting medications?No12/01/2023In the past 12 months, has lack of transportation kept you from meetings, work, or from getting things needed for daily living?No12/01/2023Housing InstabilityAnswerDate RecordedAre you worried or concerned that in the next two months you may not have stable housing that you own, rent or stay in as a part of a household?No12/01/2023 ChildcareAnswerDate IqsnyksmVorpkuprcKnkfsca25/12/2019EmploymentAnswerDate OoljsvrxWatnxlqlqhAkeoyjp43/12/2019Hunger ScreeningAnswerDate RecordedWithin the past 12 months we worried whether our food would run out before we got money to buy more.Never True12/01/2023Within the past 12 months the food we bought just didn't last and we didn't have money to get more.Never True4Purpose - LifeAnswerDate RecordedPurpose and direction in ausaJcwjdiq07/11/2021 CommentsNoSex and Gender InformationValueDate RecordedSex Assigned at BirthNot on fileLegal AsiXvhzcv80/06/2015 12:07 PM EDTGender IdentityNot on fileSexual OrientationNot on file Last Filed Vital Signs Vital SignReadingTime TakenCommentsBlood Tjomebdt44/54012/02/2023 7:36 AM EST Ldoze752412/02/2023 7:36 AM RYIUuopgttijpo45.6 ??C (97.9 ??F)12/02/2023 7:36 AM ESTRespiratory Rqqg585012/02/2023 7:36 AM ESTOxygen Uovhfczvcp84%12/02/2023 7:36 AM ESTInhaled Oxygen Concentration--Fkfezn75.3 kg (199 lb)12/01/2023 12:15 PM VVYKhvhto711.8 cm (5' 10 )12/01/2023 12:15 PM ESTBody Mass Index28.55012/01/2023 12:15 PM EST Plan of Treatment Health MaintenanceDue DateLast DoneCommentsDepression Tuyjlnltv15/05/1983 DTaP,Tdap and Td Vaccines (1 - Tdap)1990Zoster (Shingles) Vaccine (1 of 2) 2021dult BMI Qotvbaqzc82/21/27927112/01/2023Tobacco Fewjxgwnp05/21/2025 12/01/2023Influenza Fzdjmdw41/01/2023, 07/16/2020, 07/08/2017, Additional history exists Goals GoalPatient Goal TypeAssociated ProblemsRecent ProgressPatient-Stated?Author home Ilda Ovalle LSW Note: Evaluation of progress towards goal: pt said she was up with therapy Medical Devices ImplantedTypeAreaManufacturerDevice IdentifierShelf Expiration DateModel / Serial / LotCement Bn Bio 40gm Rpl [id number] - [id number] Implanted:Qty: 1 on 12/01/2023 [facility] KneeZimmer [id number] / NA / [id number] The Personalized Knee System Cruciate Retaining Right Pps Standard Femur Implanted:Qty: 1 on 12/01/2023 by Slava Calvert DO at [facility] ImplantRight: KneeZimmer [id number] / NA / [id number] Tib Kn Rt 0d E Persona Osseoti Keel - Sna - [id number] Implanted:Qty: 1 on 12/01/2023 by Slava Calvert DO at [facility] ImplantRight: KneeZimmer [id number] / NA / [id number] Ptlr 32mm Persona Alply Kn Strl Lf - Sna - [id number] Implanted:Qty: 1 on 12/01/2023 by Slaav Calvert DO at [facility] ImplantRight: KneeZimmer [id number] / NA / [id number] [facility] 8-11 E-F 10mm Kn Rt Vivacit-E Persona Strl - Sna - [id number] Implanted:Qty: 1 on 12/01/2023 by Slava Calvert DO at [facility] ImplantRight: KneeZimmer Prssbq8007/06/2027 [id number] / NA / [id number]unigpAvelxb [facility] Expiration DateModel / Serial / LotScrew Bn 35mm 6.5mm St Hip Actb Trlg Strl Rpl [id number] - Sna - [id number] Explanted:Qty: 1 on 12/01/2023 by [facility] KneeZimmer [id number] / NA / [id number] Bn 35mm 6.5mm St Hip Actb Trlg Strl Rpl [id number] - Sna - [id number] Explanted:Qty: 1 on 12/01/2023 by Slava Calvert, [facility]: KneeZimmer [id number] / NA / [id number] 27mm Hx Hd Scr Srg - Sna - [id number] Explanted:Qty: 1 on 12/01/2023 by Slava [facility]vert [facility]: KneeZimmer [id number] / NA / [id number] 27mm Hx Hd Scr Srg - Sna - [id number] Explanted:Qty: 1 on 12/01/2023 by Slava [facility]vert [facility]: KneeZimmer [id number] / NA / [id number] Gd 48mm Qd-Spr Hex Hd Mis Strl - Sna - [id number] Explanted:Qty: 1 on 12/01/2023 by Slava Calvert [facility] at [facility]: KneeZimmer [id number] / NA / [id number] Gd 48mm Qd-Spr Hex Hd Mis Strl - Sna - [id number] Explanted:Qty: 1 on 12/01/2023 by Slava [facility]vert [facility]: KneeZimmer [id number] / NA / [id number] Insurance Advance Directives * Full Code (Latest Code Status on File) Date ActivatedDate InactivatedComments12/01/2023 7:06 AM12/02/2023 3:34 PM Care Teams Team MemberRelationshipSpecialtyStart DateEnd [place] [address] [place] [address] [facility]10/17/19
--- OUTSIDE RECORDS SUMMARY | 2025-10-02 08:12 | XMS_ITS | Encounter Summary ---
Author Organization [facility] Address [address] [place] [address] Care Team Providers Care International Freight Forwarder Name Role Phone Nany Obrien MD Primary Care Provider [phone] Encounter Details DateTypeDepartmentCare Team (Latest Contact Info)Zttnojasnzb13/11/2025Travel Social History Tobacco UseTypesPacks/DayYears UsedDateSmoking Tobacco: FormerCigarettes1.531.7 [...] a week03/06/2025 How often do you attend jew or taoism services?More than 4 times per year 03/06/2025Do you belong to any clubs or organizations such as jew groups, unions, fraternal or athletic groups, or school groups?Yes03/06/2025ttends Club or Organization MeetingsNot on file03/06/2025re you , , , , never , or living with a partner?Oruksxf0903/06/2025UDIT-C AnswerDate RecordedQ1: How often do you have [...] care, and heating?Hard03/06/2025PHQ-2Answer Date RecordedPatient Health Questionnaire-2 Xsorc26410/20/2024[facility] [place] of Occupational Health - Occupational Stress QuestionnaireAnswerDate RecordedDo you feel stress - tense, restless, nervous, or anxious, or unable to sleep at night because yourmind is troubled all the time - these days?Only a szmtlp0103/06/2025 Exercise Vital SignAnswerDate RecordedOn average, how many [...] were you homeless or living in a senior care (including now)?No03/06/2025CommentsNoSex and Gender InformationValueDate RecordedSex Assigned at PnnzkAnvjur39/12/2025 8:22 AM EST Legal LsyCirnmm40/15/2023 7:21 PM EDTGender IlizqsucYudqom46/12/2025 8:22 AM EST Sexual OrientationNot on filedocumented as of this encounter Plan of Treatment DateTypeDepartmentCare Team (Latest Contact Info)Uldtqtlysur44/12/2026 9:30 AM ESTOffice Visit [facility] [address] [place] [address] Vamsi Garza, YVONNE [address] [place] [address] 03/01/2026 10:15 AM EDTOffice Visit [facility] [address] [place] [address] Amarjit Whitlock, DO [address] [place] [address] documented as of this encounter Goals GoalPatient [...] MemberRelationshipSpecialtyStart DateEnd Date Nany Obrien MD [address] [place] [address] PCP - GeneralFamily Medicine03/10/23documented as of this encounter
[2025-10-02 08:52] LABS: Hematocrit 33.0 % (36.0-48.0); Hemoglobin 9.6 g/dL (12.0-16.0); Immature Granulocytes Abs Auto 0.03 10^3/uL (0.00-0.03); Immature Granulocytes Pct Auto 0.3 % (0.0-0.5); Lymphocytes Absolute Auto 1.6 10^3/uL (1.2-3.8); Mean Corpuscular HGB Conc 29.1 g/dL (29.9-35.2); Mean Corpuscular Hemoglobin 25.0 pg (26.7-34.0); Mean Corpuscular Volume 85.9 fL (81.0-99.0); Platelet Count 269 10^3/uL (150-450); Red Blood Count 3.84 10^6/uL (4.20-5.40); Reticulocyte Pct Auto 1.29 % (0.60-3.10); White Blood Count 10.4 10^3/uL (4.0-11.0)
[2025-10-02 09:09] LABS: INR 0.98; Partial Thromboplastin Time 29.2 sec (22.3-36.2); Prothrombin Time 10.3 sec (9.0-11.6)
[2025-10-02 09:57] LABS: Iron 25.0 ug/dL (50.0-170.0); Percent Iron Saturation 8.1 %; Total Iron Binding Capacity 309.0 ug/dL (250.0-450.0)
[2025-10-02 09:58] LABS: Alanine Aminotransferase 27 U/L (14-59); Albumin Globulin Ratio 0.9; Albumin Level 3.3 g/dL (3.4-5.0); Alkaline Phosphatase 87 U/L (46-116); Anion Gap 4.4; Aspartate Amino Transferase 20 U/L (15-37); Blood Urea Nitrogen 14.0 mg/dL (7.0-18.0); Calcium 8.9 mg/dL (8.5-10.1); Carbon Dioxide 40.3 mmol/L (21.0-32.0); Chloride 103 mmol/L (98-107); Estimated GFR (African America >60 (>=60 mL/min/1.73m^2); Estimated GFR (Non-African Ame >60 (>=60 mL/min/1.73m^2); Globulin 3.6 g/dL; Glucose 100 mg/dL (74-106); Potassium 3.7 mmol/L (3.5-5.1); Sodium 144 mmol/L (136-145); Total Protein 6.9 g/dL (6.4-8.2)
[2025-10-02 10:18] LABS: Ferritin 6.0 ng/mL (8.0-252.0)
== END 2025-10-02 08:00 | disposition home or self-care (01) ==
LOC: LAB 08:07
PROVIDERS: PCP Family Medicine
DX: D51.9 Vitamin B12 deficiency anemia, unspecified (principal); D50.9 Iron deficiency anemia, unspecified
CPT/HCPCS: 36415; 80053; 82728; 83010; 83540; 83550; 85025; 85045; 85610; 85730; 86880